=== PATIENT | female | born 1975 | race Caucasian/White ===

== ENCOUNTER 2017-06-13 23:11 | Inpatient (IN) | payer OTHER ==
[2017-06-14] MEDS: OXYCODONE/ACETAMINOPHEN (10/325) TAB PO (00:09)
[2017-06-14 00:30] LABS: ADD MAN DIFF? NO
[2017-06-14 00:33] LABS: BASOPHIL # 0.1 10^3/ul (0.0-0.1); BASOPHILS % 0.7 % (0.0-2.0); EOSINOPHILS # 0.3 10^3/ul (0.0-0.5); EOSINOPHILS % 2.9 % (0.0-7.0); HEMATOCRIT 30.8 % (37.0-47.0); HEMOGLOBIN 10.3 g/dl (12.0-16.0); LYMPHOCYTES % 9.6 % (15.0-51.0); MEAN CORPUSCULAR HGB CONC 33.4 g/dl (32.0-37.0); MEAN CORPUSCULAR VOLUME 113.7 fl (82.0-101.0); MEAN PLATELET VOLUME 9.9 fl (7.4-10.4); MONOCYTE # 0.4 10^3/ul (0.3-0.9); MONOCYTES % 4.1 % (0.0-11.0); NEUTROPHIL # 8.1 10^3/ul (1.6-7.5); NEUTROPHILS % 81.5 % (39.0-77.0); NUCLEATED RED BLOOD CELLS # 0.1 10^3/ul (0.0-0.0); NUCLEATED RED BLOOD CELLS% 0.6 /100WBC (0.0-0.0); PLATELET COUNT 253 10^3/UL (140-415); RED BLOOD COUNT 2.71 10^6/ul (4.20-5.40); RED CELL DISTRIBUTION WIDTH 16.5 % (11.5-14.5)
[2017-06-14 00:33] LABS: WHITE BLOOD COUNT 9.9 10^3/ul (4.8-10.8)
[2017-06-14 00:59] LABS: ANION GAP 25 (8-16); BLOOD UREA NITROGEN 60 mg/dl (7-20); CALCIUM 7.2 mg/dl (8.4-10.2); CARBON DIOXIDE 21 mmol/L (21-31); CHLORIDE 101 mmol/L (97-110); CREATINE KINASE 78 IU/L (23-200); GLUCOSE 210 mg/dl (70-220); SODIUM 142 mmol/L (135-144)
[2017-06-14 01:06] LABS: CREATININE 15.04 mg/dl (0.44-1.00)
[2017-06-14 02:34] LABS: LACTIC ACID 2.4 mmol/L (0.5-2.0)
[2017-06-14 02:42] LABS: ACETONE NEGATIVE (NEGATIVE)
[2017-06-14] MEDS: HYDROCORTISONE 100 MG INJ IV (04:06)
[2017-06-14] MEDS: SOD CHLORIDE 0.9% 250 ML IV (04:06)
[2017-06-14] MEDS ORDERED: ONDANSETRON 4 MG INJ IV (05:30)
[2017-06-14] MEDS ORDERED: ACETAMINOPHEN 325 MG TAB PO (05:30)
[2017-06-14] MEDS: DIPHENHYDRAMINE 25 MG CAP PO (08:20)
[2017-06-14] MEDS: HYDROmorphONE 1 MG/ML SYG IV ×4 (08:21→22:45)
[2017-06-14] MEDS ORDERED: GLUCAGON 1 MG INJ IM (09:00)
[2017-06-14] MEDS ORDERED: GLUCOSE GEL 15 GRAM TUBE PO ×2 (09:00)
[2017-06-14] MEDS ORDERED: DEXTROSE 50% 50 ML SYRINGE IV ×2 (09:00)
[2017-06-14] MEDS: INSULIN ASPART [NOVOLOG] 3 ML PEN SC ×7 (09:09→21:00)
[2017-06-14] MEDS: HYDROCORTISONE 5 MG TAB PO ×3 (09:30→21:44)
[2017-06-14 10:23] LABS: HEMOGLOBIN A1C 7.4 % (0-5.9)
[2017-06-14] MEDS: GABAPENTIN 300 MG CAP PO (10:42)
[2017-06-14] MEDS: DULOXETINE 30 MG CAP DR PO (10:42)
[2017-06-14] MEDS: LANTHANUM 500 MG CHEW PO ×2 (11:43→17:26)
[2017-06-14] MEDS: SEVELAMER CARBONATE 0.8 GM PKT PO ×2 (11:43→17:26)
[2017-06-14] MEDS ORDERED: SEVELAMER CARBONATE 0.8 GM PKT PO (12:00)
[2017-06-14] MEDS: INSULIN DETEMIR [LEVEMIR] 3ML CART SC (12:08)
[2017-06-14] MEDS ORDERED: VANCOMYCIN IV PER PHARMACY XX (12:30)
[2017-06-14] MEDS: DIPHENHYDRAMINE 50 MG INJ IV ×2 (14:11→21:44)
[2017-06-14] MEDS: DIAZEPAM 5 MG TAB PO (14:11)
[2017-06-14] MEDS: VANCOMYCIN 1 GM in NS 250 ML IVPB (14:11)
[2017-06-14] MEDS: EPOETIN 10000 UNITS/1 ML INJ (ESRD) SC (17:27)
[2017-06-14] MEDS ORDERED: INSULIN ASPART [NOVOLOG] 3 ML PEN SC (17:35)
[2017-06-14] MEDS: NPH, HUMAN INSULIN ISOPHANE 3ML VIAL SC (20:17)
[2017-06-15] MEDS: ACCU-CHEK XX (02:00)
[2017-06-15] MEDS: HYDROmorphONE 1 MG/ML SYG IV ×3 (02:50→20:44)
[2017-06-15] MEDS: DIPHENHYDRAMINE 50 MG INJ IV ×3 (04:17→18:26)
[2017-06-15 05:20] LABS: ADD MAN DIFF? NO
[2017-06-15 05:41] LABS: BASOPHIL # 0.1 10^3/ul (0.0-0.1); BASOPHILS % 0.7 % (0.0-2.0); EOSINOPHILS # 0.3 10^3/ul (0.0-0.5); EOSINOPHILS % 2.6 % (0.0-7.0); HEMATOCRIT 30.1 % (37.0-47.0); HEMOGLOBIN 9.4 g/dl (12.0-16.0); LYMPHOCYTES # 1.1 10^3/ul (0.8-2.9); MEAN CORPUSCULAR HEMOGLOBIN 35.5 pg (29.0-33.0); MEAN CORPUSCULAR HGB CONC 31.2 g/dl (32.0-37.0); MEAN CORPUSCULAR VOLUME 113.6 fl (82.0-101.0); MEAN PLATELET VOLUME 9.9 fl (7.4-10.4); MONOCYTE # 0.4 10^3/ul (0.3-0.9); MONOCYTES % 4.5 % (0.0-11.0); NEUTROPHIL # 7.8 10^3/ul (1.6-7.5); NEUTROPHILS % 80.2 % (39.0-77.0); NUCLEATED RED BLOOD CELLS # 0.1 10^3/ul (0.0-0.0); NUCLEATED RED BLOOD CELLS% 0.9 /100WBC (0.0-0.0); PLATELET COUNT 235 10^3/UL (140-415); RED BLOOD COUNT 2.65 10^6/ul (4.20-5.40)
[2017-06-15 05:41] LABS: WHITE BLOOD COUNT 9.7 10^3/ul (4.8-10.8)
[2017-06-15] MEDS: LEVOTHYROXINE 175 MCG TAB PO (06:00)
[2017-06-15 06:02] LABS: ANION GAP 26 (8-16); BLOOD UREA NITROGEN 64 mg/dl (7-20); CALCIUM 7.5 mg/dl (8.4-10.2); CARBON DIOXIDE 22 mmol/L (21-31); CHLORIDE 95 mmol/L (97-110); GLUCOSE 106 mg/dl (70-220); MAGNESIUM 2.3 mg/dl (1.7-2.5); PHOSPHORUS 8.5 mg/dl (2.5-4.9); POTASSIUM 5.6 mmol/L (3.5-5.1); SODIUM 137 mmol/L (135-144)
[2017-06-15 06:13] LABS: CREATININE 15.21 mg/dl (0.44-1.00)
[2017-06-15] MEDS ORDERED: INSULIN ASPART [NOVOLOG] 3 ML PEN SC (07:30)
[2017-06-15] MEDS: INSULIN DETEMIR [LEVEMIR] 3ML CART SC (07:56)
[2017-06-15] MEDS: INSULIN ASPART [NOVOLOG] 3 ML PEN SC ×7 (07:57→21:00)
[2017-06-15] MEDS: LANTHANUM 500 MG CHEW PO ×3 (07:58→17:28)
[2017-06-15] MEDS: SEVELAMER CARBONATE 0.8 GM PKT PO ×3 (07:58→17:27)
[2017-06-15] MEDS: DULOXETINE 30 MG CAP DR PO (08:00)
[2017-06-15] MEDS: HYDROCORTISONE 5 MG TAB PO ×2 (08:00→11:30)
[2017-06-15] MEDS: GABAPENTIN 300 MG CAP PO (08:00)
[2017-06-15] MEDS ORDERED: INSULIN DETEMIR [LEVEMIR] 3ML CART SC (08:00)
[2017-06-15] MEDS: DIAZEPAM 5 MG TAB PO ×2 (11:31→17:27)
[2017-06-15] MEDS: NPH, HUMAN INSULIN ISOPHANE 3ML VIAL SC (20:29)
[2017-06-16] MEDS: DIAZEPAM 5 MG TAB PO ×4 (00:12→18:13)
[2017-06-16] MEDS: DIPHENHYDRAMINE 50 MG INJ IV ×4 (00:59→20:21)
[2017-06-16] MEDS: ACCU-CHEK XX (02:00)
[2017-06-16] MEDS: HYDROmorphONE 1 MG/ML SYG IV ×5 (03:14→22:44)
[2017-06-16] MEDS: ONDANSETRON 4 MG INJ IV ×2 (05:28→18:13)
[2017-06-16] MEDS: LEVOTHYROXINE 175 MCG TAB PO (05:28)
[2017-06-16 05:40] LABS: ADD MAN DIFF? NO
[2017-06-16 05:44] LABS: WHITE BLOOD COUNT 8.2 10^3/ul (4.8-10.8)
[2017-06-16 05:44] LABS: BASOPHIL # 0.1 10^3/ul (0.0-0.1); EOSINOPHILS # 0.2 10^3/ul (0.0-0.5); EOSINOPHILS % 2.9 % (0.0-7.0); HEMATOCRIT 29.2 % (37.0-47.0); HEMOGLOBIN 9.2 g/dl (12.0-16.0); LYMPHOCYTES # 1.1 10^3/ul (0.8-2.9); MEAN CORPUSCULAR HEMOGLOBIN 35.9 pg (29.0-33.0); MEAN CORPUSCULAR HGB CONC 31.5 g/dl (32.0-37.0); MEAN CORPUSCULAR VOLUME 114.1 fl (82.0-101.0); MEAN PLATELET VOLUME 9.9 fl (7.4-10.4); MONOCYTE # 0.4 10^3/ul (0.3-0.9); NEUTROPHIL # 6.3 10^3/ul (1.6-7.5); NEUTROPHILS % 76.9 % (39.0-77.0); NUCLEATED RED BLOOD CELLS # 0.1 10^3/ul (0.0-0.0); NUCLEATED RED BLOOD CELLS% 0.7 /100WBC (0.0-0.0); PLATELET COUNT 224 10^3/UL (140-415); RED BLOOD COUNT 2.56 10^6/ul (4.20-5.40); RED CELL DISTRIBUTION WIDTH 16.2 % (11.5-14.5)
[2017-06-16 06:34] LABS: ANION GAP 23 (8-16); BLOOD UREA NITROGEN 64 mg/dl (7-20); CALCIUM 7.3 mg/dl (8.4-10.2); CARBON DIOXIDE 24 mmol/L (21-31); CHLORIDE 93 mmol/L (97-110); GLUCOSE 142 mg/dl (70-220); MAGNESIUM 2.2 mg/dl (1.7-2.5); PHOSPHORUS 8.3 mg/dl (2.5-4.9); POTASSIUM 5.3 mmol/L (3.5-5.1); SODIUM 135 mmol/L (135-144)
[2017-06-16 06:39] LABS: VANCOMYCIN,RANDOM 15.1 ug/ml
[2017-06-16 06:47] LABS: CREATININE 14.69 mg/dl (0.44-1.00)
[2017-06-16] MEDS: LANTHANUM 500 MG CHEW PO ×3 (07:55→17:08)
[2017-06-16] MEDS: SEVELAMER CARBONATE 0.8 GM PKT PO ×3 (07:55→17:08)
[2017-06-16] MEDS: INSULIN ASPART [NOVOLOG] 3 ML PEN SC ×7 (08:10→21:00)
[2017-06-16] MEDS: INSULIN DETEMIR [LEVEMIR] 3ML CART SC (08:11)
[2017-06-16] MEDS: DULOXETINE 30 MG CAP DR PO (08:39)
[2017-06-16] MEDS: GABAPENTIN 300 MG CAP PO (08:39)
[2017-06-16] MEDS: HYDROCORTISONE 5 MG TAB PO ×2 (08:40→11:13)
[2017-06-16] MEDS: VANCOMYCIN 750 MG in DEXTROSE 5% 150 ML IVPB (11:13)
[2017-06-16] MEDS: NPH, HUMAN INSULIN ISOPHANE 3ML VIAL SC (19:57)
[2017-06-17] MEDS: DIAZEPAM 5 MG TAB PO ×5 (00:10→23:02)
[2017-06-17] MEDS: ONDANSETRON 4 MG INJ IV ×2 (00:34→20:13)
[2017-06-17] MEDS: ACCU-CHEK XX (02:00)
[2017-06-17] MEDS: DIPHENHYDRAMINE 50 MG INJ IV ×4 (02:20→23:03)
[2017-06-17] MEDS: LEVOTHYROXINE 175 MCG TAB PO (05:45)
[2017-06-17 06:20] LABS: ADD MAN DIFF? NO
[2017-06-17 06:37] LABS: WHITE BLOOD COUNT 10.4 10^3/ul (4.8-10.8)
[2017-06-17 06:37] LABS: BASOPHIL # 0.1 10^3/ul (0.0-0.1); BASOPHILS % 0.8 % (0.0-2.0); EOSINOPHILS # 0.3 10^3/ul (0.0-0.5); EOSINOPHILS % 2.7 % (0.0-7.0); HEMATOCRIT 28.8 % (37.0-47.0); HEMOGLOBIN 8.9 g/dl (12.0-16.0); LYMPHOCYTES # 1.2 10^3/ul (0.8-2.9); LYMPHOCYTES % 11.8 % (15.0-51.0); MEAN CORPUSCULAR HEMOGLOBIN 35.9 pg (29.0-33.0); MEAN CORPUSCULAR HGB CONC 30.9 g/dl (32.0-37.0); MEAN CORPUSCULAR VOLUME 116.1 fl (82.0-101.0); MONOCYTE # 0.6 10^3/ul (0.3-0.9); MONOCYTES % 6.1 % (0.0-11.0); NEUTROPHILS % 77.3 % (39.0-77.0); NUCLEATED RED BLOOD CELLS # 0.1 10^3/ul (0.0-0.0); NUCLEATED RED BLOOD CELLS% 0.8 /100WBC (0.0-0.0); PLATELET COUNT 223 10^3/UL (140-415); RED BLOOD COUNT 2.48 10^6/ul (4.20-5.40); RED CELL DISTRIBUTION WIDTH 16.3 % (11.5-14.5)
[2017-06-17] MEDS: HYDROmorphONE 1 MG/ML SYG IV ×3 (06:42→20:13)
[2017-06-17 07:12] LABS: ANION GAP 23 (8-16); BLOOD UREA NITROGEN 70 mg/dl (7-20); CALCIUM 7.3 mg/dl (8.4-10.2); CARBON DIOXIDE 24 mmol/L (21-31); CHLORIDE 93 mmol/L (97-110); GLUCOSE 180 mg/dl (70-220); SODIUM 134 mmol/L (135-144)
[2017-06-17 07:21] LABS: CREATININE 14.73 mg/dl (0.44-1.00)
[2017-06-17 07:43] LABS: POTASSIUM 6.4 mmol/L (3.5-5.1)
[2017-06-17] MEDS: DULOXETINE 30 MG CAP DR PO (08:22)
[2017-06-17] MEDS: LANTHANUM 500 MG CHEW PO ×3 (08:23→18:20)
[2017-06-17] MEDS: SEVELAMER CARBONATE 0.8 GM PKT PO ×3 (08:23→18:20)
[2017-06-17] MEDS: GABAPENTIN 300 MG CAP PO (08:23)
[2017-06-17] MEDS: INSULIN ASPART [NOVOLOG] 3 ML PEN SC ×7 (08:24→21:00)
[2017-06-17] MEDS: INSULIN DETEMIR [LEVEMIR] 3ML CART SC (08:26)
[2017-06-17] MEDS: NA POLYST SULFON 15 GM/60 ML BTL PO (09:52)
[2017-06-17] MEDS: HYDROCORTISONE 5 MG TAB PO ×2 (09:53→12:46)
[2017-06-17 15:11] LABS: ANION GAP 24 (8-16); BLOOD UREA NITROGEN 68 mg/dl (7-20); CALCIUM 7.8 mg/dl (8.4-10.2); CARBON DIOXIDE 23 mmol/L (21-31); CHLORIDE 94 mmol/L (97-110); GLUCOSE 126 mg/dl (70-220); SODIUM 137 mmol/L (135-144)
[2017-06-17 15:17] LABS: CREATININE 13.91 mg/dl (0.44-1.00)
[2017-06-17] MEDS: EPOETIN 10000 UNITS/1 ML INJ (ESRD) SC (17:01)
[2017-06-17] MEDS: NPH, HUMAN INSULIN ISOPHANE 3ML VIAL SC (20:12)
[2017-06-18] MEDS: HYDROmorphONE 1 MG/ML SYG IV ×3 (01:27→10:46)
[2017-06-18] MEDS: ACCU-CHEK XX (01:31)
[2017-06-18] MEDS: ONDANSETRON 4 MG INJ IV ×3 (04:46→20:15)
[2017-06-18] MEDS: DIPHENHYDRAMINE 50 MG INJ IV ×3 (05:03→20:15)
[2017-06-18] MEDS: LEVOTHYROXINE 175 MCG TAB PO (05:03)
[2017-06-18] MEDS: DIAZEPAM 5 MG TAB PO ×3 (05:03→17:32)
[2017-06-18 05:40] LABS: ADD MAN DIFF? NO
[2017-06-18 05:46] LABS: WHITE BLOOD COUNT 12.6 10^3/ul (4.8-10.8)
[2017-06-18 05:46] LABS: BASOPHIL # 0.1 10^3/ul (0.0-0.1); BASOPHILS % 0.5 % (0.0-2.0); EOSINOPHILS # 0.2 10^3/ul (0.0-0.5); EOSINOPHILS % 1.5 % (0.0-7.0); HEMATOCRIT 30.4 % (37.0-47.0); HEMOGLOBIN 9.5 g/dl (12.0-16.0); LYMPHOCYTES # 0.9 10^3/ul (0.8-2.9); LYMPHOCYTES % 6.8 % (15.0-51.0); MEAN CORPUSCULAR HEMOGLOBIN 36.3 pg (29.0-33.0); MEAN CORPUSCULAR HGB CONC 31.3 g/dl (32.0-37.0); MONOCYTE # 0.6 10^3/ul (0.3-0.9); MONOCYTES % 4.4 % (0.0-11.0); NEUTROPHIL # 10.8 10^3/ul (1.6-7.5); NEUTROPHILS % 85.5 % (39.0-77.0); NUCLEATED RED BLOOD CELLS # 0.1 10^3/ul (0.0-0.0); NUCLEATED RED BLOOD CELLS% 0.9 /100WBC (0.0-0.0); PLATELET COUNT 220 10^3/UL (140-415); RED BLOOD COUNT 2.62 10^6/ul (4.20-5.40); RED CELL DISTRIBUTION WIDTH 16.7 % (11.5-14.5)
[2017-06-18 06:00] LABS: ANION GAP 25 (8-16); BLOOD UREA NITROGEN 72 mg/dl (7-20); CALCIUM 7.5 mg/dl (8.4-10.2); CARBON DIOXIDE 25 mmol/L (21-31); CHLORIDE 94 mmol/L (97-110); GLUCOSE 200 mg/dl (70-220); MAGNESIUM 2.3 mg/dl (1.7-2.5); PHOSPHORUS 8.1 mg/dl (2.5-4.9); POTASSIUM 5.8 mmol/L (3.5-5.1); SODIUM 138 mmol/L (135-144)
[2017-06-18 06:12] LABS: CREATININE 14.52 mg/dl (0.44-1.00)
[2017-06-18] MEDS: SEVELAMER CARBONATE 0.8 GM PKT PO ×3 (07:53→17:32)
[2017-06-18] MEDS: LANTHANUM 500 MG CHEW PO ×3 (07:53→17:32)
[2017-06-18] MEDS: INSULIN ASPART [NOVOLOG] 3 ML PEN SC ×7 (07:55→20:33)
[2017-06-18] MEDS: INSULIN DETEMIR [LEVEMIR] 3ML CART SC (07:57)
[2017-06-18] MEDS: GABAPENTIN 300 MG CAP PO (09:10)
[2017-06-18] MEDS: HYDROCORTISONE 5 MG TAB PO ×2 (09:10→11:20)
[2017-06-18] MEDS: DULOXETINE 30 MG CAP DR PO (09:10)
[2017-06-18] MEDS ORDERED: NPH, HUMAN INSULIN ISOPHANE 3ML VIAL SC (17:30)
[2017-06-18] MEDS: NPH, HUMAN INSULIN ISOPHANE 3ML VIAL SC (20:12)
[2017-06-19] MEDS: DIAZEPAM 5 MG TAB PO ×5 (00:02→23:49)
[2017-06-19] MEDS: HYDROmorphONE 1 MG/ML SYG IV ×4 (00:42→20:30)
[2017-06-19] MEDS: ACCU-CHEK XX (02:00)
[2017-06-19] MEDS: ONDANSETRON 4 MG INJ IV ×3 (02:50→16:07)
[2017-06-19] MEDS: DIPHENHYDRAMINE 50 MG INJ IV ×4 (02:50→20:23)
[2017-06-19] MEDS: LEVOTHYROXINE 175 MCG TAB PO (05:35)
[2017-06-19 05:46] LABS: ADD MAN DIFF? NO
[2017-06-19 05:52] LABS: BASOPHIL # 0.1 10^3/ul (0.0-0.1); BASOPHILS % 0.7 % (0.0-2.0); EOSINOPHILS # 0.3 10^3/ul (0.0-0.5); EOSINOPHILS % 2.8 % (0.0-7.0); HEMATOCRIT 27.4 % (37.0-47.0); HEMOGLOBIN 8.8 g/dl (12.0-16.0); LYMPHOCYTES # 1.1 10^3/ul (0.8-2.9); LYMPHOCYTES % 10.9 % (15.0-51.0); MEAN CORPUSCULAR HGB CONC 32.1 g/dl (32.0-37.0); MEAN CORPUSCULAR VOLUME 115.1 fl (82.0-101.0); MEAN PLATELET VOLUME 9.9 fl (7.4-10.4); MONOCYTE # 0.6 10^3/ul (0.3-0.9); MONOCYTES % 6.1 % (0.0-11.0); NEUTROPHIL # 7.9 10^3/ul (1.6-7.5); NEUTROPHILS % 78.3 % (39.0-77.0); NUCLEATED RED BLOOD CELLS # 0.1 10^3/ul (0.0-0.0); NUCLEATED RED BLOOD CELLS% 1.2 /100WBC (0.0-0.0); PLATELET COUNT 187 10^3/UL (140-415); RED BLOOD COUNT 2.38 10^6/ul (4.20-5.40); RED CELL DISTRIBUTION WIDTH 16.6 % (11.5-14.5)
[2017-06-19 05:52] LABS: WHITE BLOOD COUNT 10.1 10^3/ul (4.8-10.8)
[2017-06-19 06:49] LABS: VANCOMYCIN,RANDOM 20.6 ug/ml
[2017-06-19] MEDS: INSULIN ASPART [NOVOLOG] 3 ML PEN SC ×7 (08:00→21:00)
[2017-06-19 08:48] LABS: ANION GAP 22 (8-16); BLOOD UREA NITROGEN 72 mg/dl (7-20); CALCIUM 7.7 mg/dl (8.4-10.2); CARBON DIOXIDE 25 mmol/L (21-31); CHLORIDE 94 mmol/L (97-110); MAGNESIUM 2.3 mg/dl (1.7-2.5); PHOSPHORUS 7.5 mg/dl (2.5-4.9); POTASSIUM 4.7 mmol/L (3.5-5.1); SODIUM 136 mmol/L (135-144)
[2017-06-19 08:54] LABS: CREATININE 15.03 mg/dl (0.44-1.00)
[2017-06-19 08:55] LABS: GLUCOSE 84 mg/dl (70-220)
[2017-06-19] MEDS: SEVELAMER CARBONATE 0.8 GM PKT PO ×3 (09:18→19:23)
[2017-06-19] MEDS: DULOXETINE 30 MG CAP DR PO (09:18)
[2017-06-19] MEDS: LANTHANUM 500 MG CHEW PO ×3 (09:18→19:22)
[2017-06-19] MEDS: GABAPENTIN 300 MG CAP PO (09:19)
[2017-06-19] MEDS: HYDROCORTISONE 5 MG TAB PO ×2 (09:19→14:02)
[2017-06-19] MEDS: INSULIN DETEMIR [LEVEMIR] 3ML CART SC (09:20)
[2017-06-19] MEDS: ACETAMINOPHEN 325 MG TAB PO (16:08)
[2017-06-19] MEDS: EPOETIN 10000 UNITS/1 ML INJ (ESRD) SC (19:29)
[2017-06-19] MEDS: NPH, HUMAN INSULIN ISOPHANE 3ML VIAL SC (20:23)
[2017-06-20] MEDS: HYDROmorphONE 1 MG/ML SYG IV ×6 (00:35→21:11)
[2017-06-20] MEDS: ACCU-CHEK XX (02:00)
[2017-06-20] MEDS: DIPHENHYDRAMINE 50 MG INJ IV ×5 (02:36→18:51)
[2017-06-20] MEDS: LEVOTHYROXINE 175 MCG TAB PO (06:14)
[2017-06-20] MEDS: DIAZEPAM 5 MG TAB PO ×3 (06:14→17:00)
[2017-06-20 06:42] LABS: ADD MAN DIFF? NO
[2017-06-20 06:51] LABS: BASOPHILS % 0.3 % (0.0-2.0); EOSINOPHILS # 0.2 10^3/ul (0.0-0.5); HEMATOCRIT 28.5 % (37.0-47.0); HEMOGLOBIN 8.8 g/dl (12.0-16.0); LYMPHOCYTES # 0.8 10^3/ul (0.8-2.9); LYMPHOCYTES % 6.8 % (15.0-51.0); MEAN CORPUSCULAR HEMOGLOBIN 35.9 pg (29.0-33.0); MEAN CORPUSCULAR HGB CONC 30.9 g/dl (32.0-37.0); MEAN CORPUSCULAR VOLUME 116.3 fl (82.0-101.0); MEAN PLATELET VOLUME 10.1 fl (7.4-10.4); MONOCYTE # 0.4 10^3/ul (0.3-0.9); MONOCYTES % 3.5 % (0.0-11.0); NEUTROPHIL # 9.7 10^3/ul (1.6-7.5); NEUTROPHILS % 86.5 % (39.0-77.0); NUCLEATED RED BLOOD CELLS # 0.1 10^3/ul (0.0-0.0); NUCLEATED RED BLOOD CELLS% 0.4 /100WBC (0.0-0.0); PLATELET COUNT 202 10^3/UL (140-415); RED BLOOD COUNT 2.45 10^6/ul (4.20-5.40); RED CELL DISTRIBUTION WIDTH 16.9 % (11.5-14.5)
[2017-06-20 06:51] LABS: WHITE BLOOD COUNT 11.2 10^3/ul (4.8-10.8)
[2017-06-20 07:14] LABS: ANION GAP 22 (8-16); BLOOD UREA NITROGEN 73 mg/dl (7-20); CALCIUM 7.7 mg/dl (8.4-10.2); CARBON DIOXIDE 25 mmol/L (21-31); CHLORIDE 95 mmol/L (97-110); GLUCOSE 129 mg/dl (70-220); POTASSIUM 5.7 mmol/L (3.5-5.1); SODIUM 136 mmol/L (135-144)
[2017-06-20 07:22] LABS: CREATININE 15.37 mg/dl (0.44-1.00)
[2017-06-20] MEDS: GABAPENTIN 300 MG CAP PO (08:07)
[2017-06-20] MEDS: DULOXETINE 30 MG CAP DR PO (08:07)
[2017-06-20] MEDS: SEVELAMER CARBONATE 0.8 GM PKT PO ×3 (08:07→16:36)
[2017-06-20] MEDS: LANTHANUM 500 MG CHEW PO ×3 (08:07→16:36)
[2017-06-20] MEDS: HYDROCORTISONE 5 MG TAB PO ×2 (08:07→11:41)
[2017-06-20] MEDS: INSULIN DETEMIR [LEVEMIR] 3ML CART SC (08:09)
[2017-06-20] MEDS: INSULIN ASPART [NOVOLOG] 3 ML PEN SC ×7 (08:10→20:46)
[2017-06-20] MEDS: ONDANSETRON 4 MG INJ IV (12:28)
[2017-06-20] MEDS: NPH, HUMAN INSULIN ISOPHANE 3ML VIAL SC (20:00)
[2017-06-21] MEDS: DIAZEPAM 5 MG TAB PO ×4 (00:31→17:37)
[2017-06-21] MEDS: ACCU-CHEK XX (01:00)
[2017-06-21] MEDS: DIPHENHYDRAMINE 50 MG INJ IV ×4 (01:04→21:15)
[2017-06-21] MEDS: LEVOTHYROXINE 175 MCG TAB PO (05:15)
[2017-06-21 05:57] LABS: ADD MAN DIFF? NO
[2017-06-21 06:05] LABS: BASOPHIL # 0.1 10^3/ul (0.0-0.1); BASOPHILS % 0.6 % (0.0-2.0); EOSINOPHILS # 0.2 10^3/ul (0.0-0.5); EOSINOPHILS % 2.7 % (0.0-7.0); HEMATOCRIT 27.1 % (37.0-47.0); HEMOGLOBIN 8.4 g/dl (12.0-16.0); LYMPHOCYTES # 1.1 10^3/ul (0.8-2.9); LYMPHOCYTES % 12.2 % (15.0-51.0); MEAN CORPUSCULAR HEMOGLOBIN 36.2 pg (29.0-33.0); MEAN CORPUSCULAR VOLUME 116.8 fl (82.0-101.0); MEAN PLATELET VOLUME 10.3 fl (7.4-10.4); MONOCYTE # 0.5 10^3/ul (0.3-0.9); NEUTROPHILS % 78.4 % (39.0-77.0); NUCLEATED RED BLOOD CELLS # 0.1 10^3/ul (0.0-0.0); NUCLEATED RED BLOOD CELLS% 0.7 /100WBC (0.0-0.0); PLATELET COUNT 207 10^3/UL (140-415); RED BLOOD COUNT 2.32 10^6/ul (4.20-5.40)
[2017-06-21 06:43] LABS: ANION GAP 22 (8-16); BLOOD UREA NITROGEN 75 mg/dl (7-20); CALCIUM 7.9 mg/dl (8.4-10.2); CARBON DIOXIDE 25 mmol/L (21-31); CHLORIDE 92 mmol/L (97-110); GLUCOSE 178 mg/dl (70-220); MAGNESIUM 2.3 mg/dl (1.7-2.5); PHOSPHORUS 6.2 mg/dl (2.5-4.9); SODIUM 132 mmol/L (135-144)
[2017-06-21 06:47] LABS: POTASSIUM 6.5 mmol/L (3.5-5.1)
[2017-06-21 07:13] LABS: CREATININE 15.64 mg/dl (0.44-1.00)
[2017-06-21] MEDS: LANTHANUM 500 MG CHEW PO ×3 (07:35→18:05)
[2017-06-21] MEDS: INSULIN DETEMIR [LEVEMIR] 3ML CART SC (07:50)
[2017-06-21] MEDS: INSULIN ASPART [NOVOLOG] 3 ML PEN SC ×7 (07:51→21:00)
[2017-06-21] MEDS: SEVELAMER CARBONATE 0.8 GM PKT PO ×3 (07:52→17:46)
[2017-06-21] MEDS: HYDROmorphONE 1 MG/ML SYG IV ×3 (07:55→21:15)
[2017-06-21] MEDS: NA POLYST SULFON 15 GM/60 ML BTL PR (08:00)
[2017-06-21] MEDS: HYDROCORTISONE 5 MG TAB PO ×2 (08:02→11:07)
[2017-06-21] MEDS: GABAPENTIN 300 MG CAP PO (08:02)
[2017-06-21] MEDS: DULOXETINE 30 MG CAP DR PO (08:14)
[2017-06-21] MEDS: ONDANSETRON 4 MG INJ IV (08:14)
[2017-06-21] MEDS: HYDROCODONE/APAP (5/325) TAB PO (11:07)
[2017-06-21] MEDS: NPH, HUMAN INSULIN ISOPHANE 3ML VIAL SC ×2 (12:20→21:31)
[2017-06-21 14:31] LABS: ANION GAP 21 (8-16); BLOOD UREA NITROGEN 72 mg/dl (7-20); CARBON DIOXIDE 26 mmol/L (21-31); CHLORIDE 91 mmol/L (97-110); GLUCOSE 194 mg/dl (70-220); POTASSIUM 5.4 mmol/L (3.5-5.1); SODIUM 133 mmol/L (135-144)
[2017-06-21 14:40] LABS: CREATININE 15.33 mg/dl (0.44-1.00)
[2017-06-21] MEDS: EPOETIN 10000 UNITS/1 ML INJ (ESRD) SC (17:39)
[2017-06-22] MEDS: DIAZEPAM 5 MG TAB PO ×4 (01:01→17:40)
[2017-06-22] MEDS: ACCU-CHEK XX (02:07)
[2017-06-22] MEDS: DIPHENHYDRAMINE 50 MG INJ IV ×4 (02:10→20:35)
[2017-06-22 06:36] LABS: ADD MAN DIFF? NO
[2017-06-22 06:39] LABS: BASOPHIL # 0.1 10^3/ul (0.0-0.1); BASOPHILS % 0.7 % (0.0-2.0); EOSINOPHILS # 0.2 10^3/ul (0.0-0.5); EOSINOPHILS % 2.2 % (0.0-7.0); HEMATOCRIT 26.8 % (37.0-47.0); HEMOGLOBIN 8.5 g/dl (12.0-16.0); LYMPHOCYTES # 1.1 10^3/ul (0.8-2.9); LYMPHOCYTES % 11.7 % (15.0-51.0); MEAN CORPUSCULAR HEMOGLOBIN 36.3 pg (29.0-33.0); MEAN CORPUSCULAR HGB CONC 31.7 g/dl (32.0-37.0); MEAN CORPUSCULAR VOLUME 114.5 fl (82.0-101.0); MONOCYTE # 0.5 10^3/ul (0.3-0.9); NEUTROPHIL # 7.3 10^3/ul (1.6-7.5); NUCLEATED RED BLOOD CELLS # 0.1 10^3/ul (0.0-0.0); NUCLEATED RED BLOOD CELLS% 0.5 /100WBC (0.0-0.0); PLATELET COUNT 218 10^3/UL (140-415); RED BLOOD COUNT 2.34 10^6/ul (4.20-5.40); RED CELL DISTRIBUTION WIDTH 17.1 % (11.5-14.5)
[2017-06-22 06:39] LABS: WHITE BLOOD COUNT 9.2 10^3/ul (4.8-10.8)
[2017-06-22 07:09] LABS: ANION GAP 21 (8-16); BLOOD UREA NITROGEN 74 mg/dl (7-20); CARBON DIOXIDE 27 mmol/L (21-31); CHLORIDE 92 mmol/L (97-110); GLUCOSE 196 mg/dl (70-220); MAGNESIUM 2.3 mg/dl (1.7-2.5); PHOSPHORUS 6.8 mg/dl (2.5-4.9); POTASSIUM 5.3 mmol/L (3.5-5.1); SODIUM 135 mmol/L (135-144)
[2017-06-22 07:19] LABS: CREATININE 15.96 mg/dl (0.44-1.00)
[2017-06-22] MEDS: LEVOTHYROXINE 175 MCG TAB PO (08:16)
[2017-06-22] MEDS: GABAPENTIN 300 MG CAP PO (08:16)
[2017-06-22] MEDS: HYDROCORTISONE 5 MG TAB PO ×2 (08:16→11:34)
[2017-06-22] MEDS: SEVELAMER CARBONATE 0.8 GM PKT PO ×3 (08:16→17:31)
[2017-06-22] MEDS: DULOXETINE 30 MG CAP DR PO (08:17)
[2017-06-22] MEDS: LANTHANUM 500 MG CHEW PO ×3 (08:27→17:32)
[2017-06-22] MEDS: INSULIN ASPART [NOVOLOG] 3 ML PEN SC ×7 (08:31→20:35)
[2017-06-22] MEDS: INSULIN DETEMIR [LEVEMIR] 3ML CART SC (08:33)
[2017-06-22] MEDS ORDERED: NA POLYST SULFON 15 GM/60 ML BTL PO (10:30)
[2017-06-22] MEDS: NPH, HUMAN INSULIN ISOPHANE 3ML VIAL SC ×2 (11:40→20:34)
[2017-06-22] MEDS: HYDROCODONE/APAP (5/325) TAB PO ×2 (14:44→22:13)
[2017-06-22] MEDS: HYDROmorphONE 1 MG/ML SYG IV ×2 (15:48→20:35)
[2017-06-23] MEDS: DIPHENHYDRAMINE 50 MG INJ IV ×5 (00:40→20:11)
[2017-06-23] MEDS: DIAZEPAM 5 MG TAB PO ×4 (00:40→18:17)
[2017-06-23] MEDS: HYDROmorphONE 1 MG/ML SYG IV ×5 (00:40→20:11)
[2017-06-23] MEDS: ACCU-CHEK XX (02:25)
[2017-06-23] MEDS: LEVOTHYROXINE 175 MCG TAB PO (06:02)
[2017-06-23 06:55] LABS: ADD MAN DIFF? NO
[2017-06-23 06:58] LABS: WHITE BLOOD COUNT 9.6 10^3/ul (4.8-10.8)
[2017-06-23 06:58] LABS: BASOPHIL # 0.1 10^3/ul (0.0-0.1); BASOPHILS % 0.5 % (0.0-2.0); EOSINOPHILS # 0.3 10^3/ul (0.0-0.5); EOSINOPHILS % 2.8 % (0.0-7.0); HEMATOCRIT 28.3 % (37.0-47.0); HEMOGLOBIN 8.9 g/dl (12.0-16.0); LYMPHOCYTES # 1.2 10^3/ul (0.8-2.9); LYMPHOCYTES % 12.2 % (15.0-51.0); MEAN CORPUSCULAR HEMOGLOBIN 36.5 pg (29.0-33.0); MEAN CORPUSCULAR HGB CONC 31.4 g/dl (32.0-37.0); MEAN PLATELET VOLUME 9.8 fl (7.4-10.4); MONOCYTE # 0.5 10^3/ul (0.3-0.9); MONOCYTES % 5.2 % (0.0-11.0); NEUTROPHIL # 7.5 10^3/ul (1.6-7.5); NEUTROPHILS % 78.2 % (39.0-77.0); NUCLEATED RED BLOOD CELLS # 0.1 10^3/ul (0.0-0.0); NUCLEATED RED BLOOD CELLS% 0.5 /100WBC (0.0-0.0); PLATELET COUNT 229 10^3/UL (140-415); RED BLOOD COUNT 2.44 10^6/ul (4.20-5.40); RED CELL DISTRIBUTION WIDTH 16.9 % (11.5-14.5)
[2017-06-23 07:23] LABS: ANION GAP 22 (8-16); BLOOD UREA NITROGEN 74 mg/dl (7-20); CALCIUM 8.2 mg/dl (8.4-10.2); CARBON DIOXIDE 26 mmol/L (21-31); CHLORIDE 95 mmol/L (97-110); GLUCOSE 65 mg/dl (70-220); POTASSIUM 4.9 mmol/L (3.5-5.1); SODIUM 138 mmol/L (135-144)
[2017-06-23 07:36] LABS: CREATININE 16.03 mg/dl (0.44-1.00)
[2017-06-23] MEDS: LANTHANUM 500 MG CHEW PO ×3 (07:52→18:18)
[2017-06-23] MEDS: SEVELAMER CARBONATE 0.8 GM PKT PO ×3 (07:52→18:18)
[2017-06-23] MEDS: INSULIN ASPART [NOVOLOG] 3 ML PEN SC ×7 (08:00→20:54)
[2017-06-23] MEDS: INSULIN DETEMIR [LEVEMIR] 3ML CART SC (08:16)
[2017-06-23] MEDS: GABAPENTIN 300 MG CAP PO (08:29)
[2017-06-23] MEDS: DULOXETINE 30 MG CAP DR PO (08:29)
[2017-06-23] MEDS: HYDROCORTISONE 5 MG TAB PO ×2 (08:29→12:08)
[2017-06-23] MEDS: ONDANSETRON 4 MG INJ IV (12:13)
[2017-06-23] MEDS: NPH, HUMAN INSULIN ISOPHANE 3ML VIAL SC (20:54)
[2017-06-24] MEDS: ACCU-CHEK XX ×2 (02:00)
[2017-06-24] MEDS: DIPHENHYDRAMINE 50 MG INJ IV ×5 (03:01→21:39)
[2017-06-24] MEDS: HYDROmorphONE 1 MG/ML SYG IV ×4 (03:02→18:42)
[2017-06-24] MEDS: ONDANSETRON 4 MG INJ IV ×2 (05:02→11:21)
[2017-06-24] MEDS: LEVOTHYROXINE 175 MCG TAB PO (05:02)
[2017-06-24] MEDS: DIAZEPAM 5 MG TAB PO ×4 (05:02→17:40)
[2017-06-24 06:38] LABS: ADD MAN DIFF? NO
[2017-06-24 06:41] LABS: WHITE BLOOD COUNT 8.2 10^3/ul (4.8-10.8)
[2017-06-24 06:41] LABS: BASOPHIL # 0.1 10^3/ul (0.0-0.1); BASOPHILS % 0.6 % (0.0-2.0); EOSINOPHILS # 0.2 10^3/ul (0.0-0.5); EOSINOPHILS % 2.1 % (0.0-7.0); HEMATOCRIT 29.4 % (37.0-47.0); HEMOGLOBIN 9.3 g/dl (12.0-16.0); LYMPHOCYTES % 11.8 % (15.0-51.0); MEAN CORPUSCULAR HEMOGLOBIN 36.5 pg (29.0-33.0); MEAN CORPUSCULAR HGB CONC 31.6 g/dl (32.0-37.0); MEAN CORPUSCULAR VOLUME 115.3 fl (82.0-101.0); MEAN PLATELET VOLUME 9.8 fl (7.4-10.4); MONOCYTE # 0.5 10^3/ul (0.3-0.9); MONOCYTES % 5.8 % (0.0-11.0); NEUTROPHIL # 6.4 10^3/ul (1.6-7.5); NEUTROPHILS % 78.1 % (39.0-77.0); NUCLEATED RED BLOOD CELLS% 0.2 /100WBC (0.0-0.0); PLATELET COUNT 258 10^3/UL (140-415); RED BLOOD COUNT 2.55 10^6/ul (4.20-5.40); RED CELL DISTRIBUTION WIDTH 16.7 % (11.5-14.5)
[2017-06-24 07:16] LABS: ANION GAP 25 (8-16); BLOOD UREA NITROGEN 66 mg/dl (7-20); CALCIUM 8.7 mg/dl (8.4-10.2); CARBON DIOXIDE 25 mmol/L (21-31); CHLORIDE 93 mmol/L (97-110); GLUCOSE 291 mg/dl (70-220); SODIUM 138 mmol/L (135-144)
[2017-06-24] MEDS: INSULIN ASPART [NOVOLOG] 3 ML PEN SC ×7 (08:00→20:17)
[2017-06-24] MEDS: GABAPENTIN 300 MG CAP PO (08:50)
[2017-06-24] MEDS: LANTHANUM 500 MG CHEW PO ×3 (08:50→17:40)
[2017-06-24] MEDS: SEVELAMER CARBONATE 0.8 GM PKT PO ×3 (08:50→17:41)
[2017-06-24] MEDS: HYDROCORTISONE 5 MG TAB PO ×2 (08:50→11:19)
[2017-06-24] MEDS: DULOXETINE 30 MG CAP DR PO (08:50)
[2017-06-24] MEDS: INSULIN DETEMIR [LEVEMIR] 3ML CART SC (09:07)
[2017-06-24] MEDS ORDERED: SOD CHLORIDE 0.9% 250 ML IV (10:00)
[2017-06-24] MEDS: EPOETIN 10000 UNITS/1 ML INJ (ESRD) SC (17:40)
[2017-06-24] MEDS: NPH, HUMAN INSULIN ISOPHANE 3ML VIAL SC (20:22)
[2017-06-25] MEDS: DIAZEPAM 5 MG TAB PO ×4 (00:35→17:41)
[2017-06-25] MEDS: HYDROmorphONE 1 MG/ML SYG IV ×2 (00:36→05:45)
[2017-06-25] MEDS: DIPHENHYDRAMINE 50 MG INJ IV ×5 (01:49→23:52)
[2017-06-25] MEDS: ACCU-CHEK XX (02:00)
[2017-06-25] MEDS: ONDANSETRON 4 MG INJ IV ×3 (04:40→23:46)
[2017-06-25] MEDS: LEVOTHYROXINE 175 MCG TAB PO (05:41)
[2017-06-25] MEDS: GABAPENTIN 300 MG CAP PO (08:00)
[2017-06-25] MEDS: DULOXETINE 30 MG CAP DR PO (08:00)
[2017-06-25] MEDS: LANTHANUM 500 MG CHEW PO ×3 (08:01→17:34)
[2017-06-25] MEDS: SEVELAMER CARBONATE 0.8 GM PKT PO ×3 (08:01→17:35)
[2017-06-25] MEDS: HYDROCODONE/APAP (5/325) TAB PO (08:02)
[2017-06-25] MEDS: INSULIN ASPART [NOVOLOG] 3 ML PEN SC ×7 (08:10→21:00)
[2017-06-25] MEDS: INSULIN DETEMIR [LEVEMIR] 3ML CART SC (08:11)
[2017-06-25 08:22] LABS: ADD MAN DIFF? NO
[2017-06-25 08:31] LABS: BASOPHIL # 0.1 10^3/ul (0.0-0.1); BASOPHILS % 0.8 % (0.0-2.0); EOSINOPHILS # 0.3 10^3/ul (0.0-0.5); HEMATOCRIT 28.3 % (37.0-47.0); HEMOGLOBIN 8.8 g/dl (12.0-16.0); LYMPHOCYTES % 11.9 % (15.0-51.0); MEAN CORPUSCULAR HEMOGLOBIN 35.9 pg (29.0-33.0); MEAN CORPUSCULAR HGB CONC 31.1 g/dl (32.0-37.0); MEAN CORPUSCULAR VOLUME 115.5 fl (82.0-101.0); MEAN PLATELET VOLUME 9.7 fl (7.4-10.4); MONOCYTE # 0.4 10^3/ul (0.3-0.9); MONOCYTES % 4.8 % (0.0-11.0); NEUTROPHIL # 6.7 10^3/ul (1.6-7.5); NEUTROPHILS % 77.8 % (39.0-77.0); NUCLEATED RED BLOOD CELLS% 0.2 /100WBC (0.0-0.0); PLATELET COUNT 234 10^3/UL (140-415); RED BLOOD COUNT 2.45 10^6/ul (4.20-5.40); RED CELL DISTRIBUTION WIDTH 16.4 % (11.5-14.5)
[2017-06-25 08:31] LABS: WHITE BLOOD COUNT 8.6 10^3/ul (4.8-10.8)
[2017-06-25 08:45] LABS: ANION GAP 21 (8-16); BLOOD UREA NITROGEN 65 mg/dl (7-20); CALCIUM 8.5 mg/dl (8.4-10.2); CARBON DIOXIDE 26 mmol/L (21-31); CHLORIDE 94 mmol/L (97-110); GLUCOSE 358 mg/dl (70-220); POTASSIUM 5.5 mmol/L (3.5-5.1); SODIUM 135 mmol/L (135-144)
[2017-06-25] MEDS: HYDROCORTISONE 5 MG TAB PO ×2 (09:45→11:48)
[2017-06-25] MEDS: CALCIUM ACETATE 667 MG CAP PO ×2 (11:47→17:34)
[2017-06-25] MEDS: HYDROmorphONE 0.5 MG/0.5 ML SYG IV ×2 (17:34→23:53)
[2017-06-25] MEDS: NPH, HUMAN INSULIN ISOPHANE 3ML VIAL SC ×3 (20:07→20:15)
[2017-06-26] MEDS: DIAZEPAM 5 MG TAB PO ×4 (00:32→17:11)
[2017-06-26] MEDS: ACCU-CHEK XX (02:00)
[2017-06-26] MEDS: LEVOTHYROXINE 175 MCG TAB PO (06:12)
[2017-06-26] MEDS: DIPHENHYDRAMINE 50 MG INJ IV ×5 (06:24→21:35)
[2017-06-26] MEDS: HYDROmorphONE 0.5 MG/0.5 ML SYG IV ×5 (06:24→21:35)
[2017-06-26 07:55] LABS: ANION GAP 20 (8-16); BLOOD UREA NITROGEN 64 mg/dl (7-20); CARBON DIOXIDE 29 mmol/L (21-31); CHLORIDE 94 mmol/L (97-110); GLUCOSE 273 mg/dl (70-220); MAGNESIUM 2.4 mg/dl (1.7-2.5); PHOSPHORUS 6.7 mg/dl (2.5-4.9); POTASSIUM 5.1 mmol/L (3.5-5.1); SODIUM 138 mmol/L (135-144)
[2017-06-26] MEDS: HYDROCORTISONE 5 MG TAB PO ×2 (08:12→11:41)
[2017-06-26] MEDS: SEVELAMER CARBONATE 0.8 GM PKT PO ×3 (08:14→17:10)
[2017-06-26] MEDS: CALCIUM ACETATE 667 MG CAP PO ×3 (08:14→17:11)
[2017-06-26] MEDS: LANTHANUM 500 MG CHEW PO ×3 (08:14→17:11)
[2017-06-26] MEDS: DULOXETINE 30 MG CAP DR PO (08:14)
[2017-06-26] MEDS: GABAPENTIN 300 MG CAP PO (08:14)
[2017-06-26 08:16] LABS: CREATININE 15.79 mg/dl (0.44-1.00)
[2017-06-26] MEDS: INSULIN ASPART [NOVOLOG] 3 ML PEN SC ×7 (08:16→20:44)
[2017-06-26] MEDS: INSULIN DETEMIR [LEVEMIR] 3ML CART SC (09:35)
[2017-06-26] MEDS: ONDANSETRON 4 MG INJ IV (11:06)
[2017-06-26] MEDS: EPOETIN 10000 UNITS/1 ML INJ (ESRD) SC (18:47)
[2017-06-26] MEDS: NPH, HUMAN INSULIN ISOPHANE 3ML VIAL SC (20:49)
[2017-06-27] MEDS: DIAZEPAM 5 MG TAB PO ×4 (00:32→17:26)
[2017-06-27] MEDS: HYDROmorphONE 0.5 MG/0.5 ML SYG IV ×5 (01:45→18:35)
[2017-06-27] MEDS: DIPHENHYDRAMINE 50 MG INJ IV ×4 (01:45→18:38)
[2017-06-27] MEDS: ACCU-CHEK XX (01:53)
[2017-06-27] MEDS: LEVOTHYROXINE 175 MCG TAB PO (05:32)
[2017-06-27] MEDS: INSULIN ASPART [NOVOLOG] 3 ML PEN SC ×7 (08:00→20:19)
[2017-06-27] MEDS: CALCIUM ACETATE 667 MG CAP PO ×3 (08:36→17:26)
[2017-06-27] MEDS: DULOXETINE 30 MG CAP DR PO (08:36)
[2017-06-27] MEDS: HYDROCORTISONE 5 MG TAB PO ×2 (08:36→11:57)
[2017-06-27] MEDS: GABAPENTIN 300 MG CAP PO (08:36)
[2017-06-27] MEDS: LANTHANUM 500 MG CHEW PO ×3 (08:36→17:25)
[2017-06-27] MEDS: SEVELAMER CARBONATE 0.8 GM PKT PO ×3 (08:37→17:25)
[2017-06-27] MEDS: INSULIN DETEMIR [LEVEMIR] 3ML CART SC (08:45)
[2017-06-27] MEDS: ONDANSETRON 4 MG INJ IV (09:33)
[2017-06-27] MEDS: NPH, HUMAN INSULIN ISOPHANE 3ML VIAL SC (20:18)
[2017-06-28] MEDS: DIAZEPAM 5 MG TAB PO ×4 (01:14→17:23)
[2017-06-28] MEDS: ACCU-CHEK XX (01:19)
[2017-06-28] MEDS: DIPHENHYDRAMINE 50 MG INJ IV ×5 (01:28→20:49)
[2017-06-28] MEDS: HYDROmorphONE 0.5 MG/0.5 ML SYG IV ×5 (01:28→20:50)
[2017-06-28] MEDS: LEVOTHYROXINE 175 MCG TAB PO (06:15)
[2017-06-28 07:06] LABS: ADD MAN DIFF? NO
[2017-06-28 07:14] LABS: BASOPHIL # 0.1 10^3/ul (0.0-0.1); BASOPHILS % 0.9 % (0.0-2.0); EOSINOPHILS # 0.2 10^3/ul (0.0-0.5); EOSINOPHILS % 2.7 % (0.0-7.0); HEMATOCRIT 31.1 % (37.0-47.0); HEMOGLOBIN 9.5 g/dl (12.0-16.0); LYMPHOCYTES % 13.2 % (15.0-51.0); MEAN CORPUSCULAR HGB CONC 30.5 g/dl (32.0-37.0); MEAN CORPUSCULAR VOLUME 117.8 fl (82.0-101.0); MEAN PLATELET VOLUME 10.1 fl (7.4-10.4); MONOCYTE # 0.5 10^3/ul (0.3-0.9); MONOCYTES % 6.9 % (0.0-11.0); NEUTROPHIL # 5.6 10^3/ul (1.6-7.5); PLATELET COUNT 261 10^3/UL (140-415); RED BLOOD COUNT 2.64 10^6/ul (4.20-5.40); RED CELL DISTRIBUTION WIDTH 16.5 % (11.5-14.5)
[2017-06-28 07:14] LABS: WHITE BLOOD COUNT 7.5 10^3/ul (4.8-10.8)
[2017-06-28 07:42] LABS: ANION GAP 20 (8-16); BLOOD UREA NITROGEN 58 mg/dl (7-20); CALCIUM 8.9 mg/dl (8.4-10.2); CARBON DIOXIDE 26 mmol/L (21-31); CHLORIDE 96 mmol/L (97-110); GLUCOSE 314 mg/dl (70-220); POTASSIUM 5.2 mmol/L (3.5-5.1); SODIUM 137 mmol/L (135-144)
[2017-06-28 08:05] LABS: CREATININE 15.52 mg/dl (0.44-1.00)
[2017-06-28] MEDS: GABAPENTIN 300 MG CAP PO (08:09)
[2017-06-28] MEDS: HYDROCORTISONE 5 MG TAB PO ×2 (08:09→12:06)
[2017-06-28] MEDS: CALCIUM ACETATE 667 MG CAP PO ×3 (08:09→17:23)
[2017-06-28] MEDS: LANTHANUM 500 MG CHEW PO ×3 (08:09→17:23)
[2017-06-28] MEDS: SEVELAMER CARBONATE 0.8 GM PKT PO ×3 (08:09→17:23)
[2017-06-28] MEDS: DULOXETINE 30 MG CAP DR PO (08:10)
[2017-06-28] MEDS: INSULIN DETEMIR [LEVEMIR] 3ML CART SC (08:12)
[2017-06-28] MEDS: INSULIN ASPART [NOVOLOG] 3 ML PEN SC ×7 (08:13→20:48)
[2017-06-28] MEDS: ONDANSETRON 4 MG INJ IV ×2 (08:46→18:38)
[2017-06-28] MEDS: EPOETIN 10000 UNITS/1 ML INJ (ESRD) SC (18:34)
[2017-06-28] MEDS: NPH, HUMAN INSULIN ISOPHANE 3ML VIAL SC (20:48)
[2017-06-29] MEDS: DIAZEPAM 5 MG TAB PO ×4 (00:53→17:27)
[2017-06-29] MEDS: HYDROmorphONE 0.5 MG/0.5 ML SYG IV ×5 (00:54→20:54)
[2017-06-29] MEDS: DIPHENHYDRAMINE 50 MG INJ IV ×5 (00:54→20:54)
[2017-06-29] MEDS: ACCU-CHEK XX (02:00)
[2017-06-29] MEDS: LEVOTHYROXINE 175 MCG TAB PO (05:28)
[2017-06-29 05:29] LABS: ADD MAN DIFF? NO
[2017-06-29 05:39] LABS: WHITE BLOOD COUNT 7.6 10^3/ul (4.8-10.8)
[2017-06-29 05:39] LABS: BASOPHIL # 0.1 10^3/ul (0.0-0.1); BASOPHILS % 1.1 % (0.0-2.0); EOSINOPHILS # 0.2 10^3/ul (0.0-0.5); EOSINOPHILS % 2.6 % (0.0-7.0); HEMATOCRIT 32.2 % (37.0-47.0); HEMOGLOBIN 9.7 g/dl (12.0-16.0); LYMPHOCYTES # 1.1 10^3/ul (0.8-2.9); LYMPHOCYTES % 13.9 % (15.0-51.0); MEAN CORPUSCULAR HEMOGLOBIN 35.1 pg (29.0-33.0); MEAN CORPUSCULAR HGB CONC 30.1 g/dl (32.0-37.0); MEAN CORPUSCULAR VOLUME 116.7 fl (82.0-101.0); MONOCYTE # 0.5 10^3/ul (0.3-0.9); MONOCYTES % 6.7 % (0.0-11.0); NEUTROPHIL # 5.7 10^3/ul (1.6-7.5); NEUTROPHILS % 74.5 % (39.0-77.0); NUCLEATED RED BLOOD CELLS% 0.4 /100WBC (0.0-0.0); PLATELET COUNT 263 10^3/UL (140-415); RED BLOOD COUNT 2.76 10^6/ul (4.20-5.40); RED CELL DISTRIBUTION WIDTH 16.1 % (11.5-14.5)
[2017-06-29 06:10] LABS: ANION GAP 20 (8-16); BLOOD UREA NITROGEN 62 mg/dl (7-20); CALCIUM 9.3 mg/dl (8.4-10.2); CARBON DIOXIDE 28 mmol/L (21-31); CHLORIDE 96 mmol/L (97-110); GLUCOSE 179 mg/dl (70-220); POTASSIUM 5.3 mmol/L (3.5-5.1); SODIUM 139 mmol/L (135-144)
[2017-06-29 06:36] LABS: CREATININE 15.71 mg/dl (0.44-1.00)
[2017-06-29] MEDS: INSULIN DETEMIR [LEVEMIR] 3ML CART SC (08:42)
[2017-06-29] MEDS: INSULIN ASPART [NOVOLOG] 3 ML PEN SC ×7 (08:43→20:15)
[2017-06-29] MEDS: LANTHANUM 500 MG CHEW PO ×3 (08:46→17:28)
[2017-06-29] MEDS: GABAPENTIN 300 MG CAP PO (08:46)
[2017-06-29] MEDS: HYDROCORTISONE 5 MG TAB PO ×2 (08:46→12:00)
[2017-06-29] MEDS: DULOXETINE 30 MG CAP DR PO (08:46)
[2017-06-29] MEDS: CALCIUM ACETATE 667 MG CAP PO ×3 (08:46→17:27)
[2017-06-29] MEDS: SEVELAMER CARBONATE 0.8 GM PKT PO ×3 (08:46→18:13)
[2017-06-29] MEDS: SEVELAMER CARBONATE 2.4 GM PKT PO (18:23)
[2017-06-29] MEDS: NPH, HUMAN INSULIN ISOPHANE 3ML VIAL SC (20:14)
[2017-06-30] MEDS: DIAZEPAM 5 MG TAB PO ×4 (00:11→17:48)
[2017-06-30] MEDS: DIPHENHYDRAMINE 50 MG INJ IV ×6 (01:01→22:19)
[2017-06-30] MEDS: HYDROmorphONE 0.5 MG/0.5 ML SYG IV ×6 (01:01→22:19)
[2017-06-30] MEDS: ACCU-CHEK XX (02:14)
[2017-06-30] MEDS: NPH, HUMAN INSULIN ISOPHANE 3ML VIAL SC ×2 (03:39→20:32)
[2017-06-30] MEDS: LEVOTHYROXINE 175 MCG TAB PO (06:32)
[2017-06-30] MEDS: INSULIN ASPART [NOVOLOG] 3 ML PEN SC ×7 (08:24→20:30)
[2017-06-30] MEDS: INSULIN DETEMIR [LEVEMIR] 3ML CART SC (08:25)
[2017-06-30] MEDS: DULOXETINE 30 MG CAP DR PO (08:27)
[2017-06-30] MEDS: SEVELAMER CARBONATE 2.4 GM PKT PO ×3 (08:27→19:04)
[2017-06-30] MEDS: SEVELAMER CARBONATE 0.8 GM PKT PO ×3 (08:27→19:04)
[2017-06-30] MEDS: HYDROCORTISONE 5 MG TAB PO ×2 (08:28→12:08)
[2017-06-30] MEDS: GABAPENTIN 300 MG CAP PO (08:28)
[2017-06-30] MEDS: LANTHANUM 500 MG CHEW PO ×3 (08:28→17:48)
[2017-06-30] MEDS: CALCIUM ACETATE 667 MG CAP PO ×3 (08:28→17:48)
[2017-06-30] MEDS: ONDANSETRON 4 MG INJ IV (13:45)
[2017-06-30] MEDS ORDERED: NPH, HUMAN INSULIN ISOPHANE 3ML VIAL SC (22:00)
[2017-07-01] MEDS: DIAZEPAM 5 MG TAB PO ×4 (00:19→17:29)
[2017-07-01] MEDS: ACCU-CHEK XX (02:00)
[2017-07-01] MEDS: DIPHENHYDRAMINE 50 MG INJ IV ×4 (04:55→19:52)
[2017-07-01] MEDS: HYDROmorphONE 0.5 MG/0.5 ML SYG IV ×3 (04:55→13:51)
[2017-07-01] MEDS: LEVOTHYROXINE 175 MCG TAB PO (06:22)
[2017-07-01 08:20] LABS: ADD MAN DIFF? NO
[2017-07-01 08:26] LABS: WHITE BLOOD COUNT 8.8 10^3/ul (4.8-10.8)
[2017-07-01 08:26] LABS: BASOPHIL # 0.1 10^3/ul (0.0-0.1); EOSINOPHILS # 0.3 10^3/ul (0.0-0.5); EOSINOPHILS % 3.4 % (0.0-7.0); HEMATOCRIT 31.8 % (37.0-47.0); HEMOGLOBIN 9.8 g/dl (12.0-16.0); LYMPHOCYTES % 11.8 % (15.0-51.0); MEAN CORPUSCULAR HEMOGLOBIN 35.5 pg (29.0-33.0); MEAN CORPUSCULAR HGB CONC 30.8 g/dl (32.0-37.0); MEAN CORPUSCULAR VOLUME 115.2 fl (82.0-101.0); MONOCYTE # 0.4 10^3/ul (0.3-0.9); NEUTROPHIL # 6.9 10^3/ul (1.6-7.5); NEUTROPHILS % 77.9 % (39.0-77.0); PLATELET COUNT 275 10^3/UL (140-415); RED BLOOD COUNT 2.76 10^6/ul (4.20-5.40); RED CELL DISTRIBUTION WIDTH 15.9 % (11.5-14.5)
[2017-07-01] MEDS: GABAPENTIN 300 MG CAP PO (08:26)
[2017-07-01] MEDS: HYDROCORTISONE 5 MG TAB PO ×2 (08:26→12:12)
[2017-07-01] MEDS: CALCIUM ACETATE 667 MG CAP PO ×3 (08:27→17:30)
[2017-07-01] MEDS: DULOXETINE 30 MG CAP DR PO (08:27)
[2017-07-01] MEDS: INSULIN DETEMIR [LEVEMIR] 3ML CART SC (08:28)
[2017-07-01] MEDS: SEVELAMER CARBONATE 0.8 GM PKT PO ×3 (08:28→17:31)
[2017-07-01] MEDS: SEVELAMER CARBONATE 2.4 GM PKT PO ×3 (08:28→17:30)
[2017-07-01] MEDS: INSULIN ASPART [NOVOLOG] 3 ML PEN SC ×7 (08:30→21:04)
[2017-07-01 08:48] LABS: ANION GAP 21 (8-16); BLOOD UREA NITROGEN 66 mg/dl (7-20); CALCIUM 9.5 mg/dl (8.4-10.2); CARBON DIOXIDE 27 mmol/L (21-31); CHLORIDE 95 mmol/L (97-110); GLUCOSE 217 mg/dl (70-220); MAGNESIUM 2.6 mg/dl (1.7-2.5); PHOSPHORUS 6.2 mg/dl (2.5-4.9); POTASSIUM 4.8 mmol/L (3.5-5.1); SODIUM 138 mmol/L (135-144)
[2017-07-01] MEDS: LANTHANUM 500 MG CHEW PO ×3 (10:17→17:30)
[2017-07-01] MEDS: ONDANSETRON 4 MG INJ IV (10:18)
[2017-07-01] MEDS: HYDROCODONE/APAP (5/325) TAB PO ×2 (10:22→15:59)
[2017-07-01] MEDS: EPOETIN 10000 UNITS/1 ML INJ (ESRD) SC (17:29)
[2017-07-01] MEDS: HYDROmorphONE 2 MG TAB PO ×2 (18:52→21:41)
[2017-07-01] MEDS: NPH, HUMAN INSULIN ISOPHANE 3ML VIAL SC (19:52)
[2017-07-02] MEDS: DIAZEPAM 5 MG TAB PO ×4 (00:20→18:14)
[2017-07-02] MEDS: DIPHENHYDRAMINE 50 MG INJ IV ×5 (00:24→21:35)
[2017-07-02] MEDS: ACCU-CHEK XX (02:00)
[2017-07-02] MEDS: HYDROmorphONE 2 MG TAB PO ×3 (02:45→20:33)
[2017-07-02] MEDS: ONDANSETRON 4 MG INJ IV (02:48)
[2017-07-02] MEDS: LEVOTHYROXINE 175 MCG TAB PO (06:05)
[2017-07-02 06:19] LABS: ANION GAP 22 (8-16); BLOOD UREA NITROGEN 65 mg/dl (7-20); CALCIUM 9.4 mg/dl (8.4-10.2); CARBON DIOXIDE 25 mmol/L (21-31); CHLORIDE 95 mmol/L (97-110); GLUCOSE 263 mg/dl (70-220); POTASSIUM 5.3 mmol/L (3.5-5.1); SODIUM 137 mmol/L (135-144)
[2017-07-02 06:41] LABS: CREATININE 15.96 mg/dl (0.44-1.00)
[2017-07-02] MEDS: LANTHANUM 500 MG CHEW PO ×3 (08:45→17:20)
[2017-07-02] MEDS: SEVELAMER CARBONATE 2.4 GM PKT PO ×3 (08:46→17:20)
[2017-07-02] MEDS: SEVELAMER CARBONATE 0.8 GM PKT PO ×3 (08:46→17:20)
[2017-07-02] MEDS: CALCIUM ACETATE 667 MG CAP PO ×3 (08:46→17:20)
[2017-07-02] MEDS: INSULIN ASPART [NOVOLOG] 3 ML PEN SC ×7 (08:49→20:35)
[2017-07-02] MEDS: INSULIN DETEMIR [LEVEMIR] 3ML CART SC (08:50)
[2017-07-02] MEDS: HYDROCORTISONE 5 MG TAB PO ×2 (08:51→11:53)
[2017-07-02] MEDS: GABAPENTIN 300 MG CAP PO (08:51)
[2017-07-02] MEDS: DULOXETINE 30 MG CAP DR PO (08:51)
[2017-07-02] MEDS: NPH, HUMAN INSULIN ISOPHANE 3ML VIAL SC (20:34)
[2017-07-03] MEDS: ACCU-CHEK XX (02:00)
[2017-07-03] MEDS: HYDROmorphONE 2 MG TAB PO ×5 (02:23→21:32)
[2017-07-03] MEDS: DIPHENHYDRAMINE 50 MG INJ IV ×5 (02:28→21:32)
[2017-07-03] MEDS: DIAZEPAM 5 MG TAB PO ×4 (02:45→17:30)
[2017-07-03] MEDS: LEVOTHYROXINE 175 MCG TAB PO (05:10)
[2017-07-03 05:49] LABS: ADD MAN DIFF? NO
[2017-07-03 05:58] LABS: WHITE BLOOD COUNT 8.4 10^3/ul (4.8-10.8)
[2017-07-03 05:58] LABS: BASOPHIL # 0.1 10^3/ul (0.0-0.1); BASOPHILS % 0.8 % (0.0-2.0); EOSINOPHILS # 0.3 10^3/ul (0.0-0.5); EOSINOPHILS % 3.6 % (0.0-7.0); HEMATOCRIT 31.6 % (37.0-47.0); HEMOGLOBIN 9.9 g/dl (12.0-16.0); LYMPHOCYTES # 1.2 10^3/ul (0.8-2.9); LYMPHOCYTES % 14.2 % (15.0-51.0); MEAN CORPUSCULAR HEMOGLOBIN 35.6 pg (29.0-33.0); MEAN CORPUSCULAR HGB CONC 31.3 g/dl (32.0-37.0); MEAN CORPUSCULAR VOLUME 113.7 fl (82.0-101.0); MEAN PLATELET VOLUME 10.2 fl (7.4-10.4); MONOCYTE # 0.5 10^3/ul (0.3-0.9); MONOCYTES % 5.8 % (0.0-11.0); NEUTROPHIL # 6.3 10^3/ul (1.6-7.5); NEUTROPHILS % 74.9 % (39.0-77.0); NUCLEATED RED BLOOD CELLS% 0.2 /100WBC (0.0-0.0); PLATELET COUNT 260 10^3/UL (140-415); RED BLOOD COUNT 2.78 10^6/ul (4.20-5.40); RED CELL DISTRIBUTION WIDTH 15.8 % (11.5-14.5)
[2017-07-03 06:41] LABS: ANION GAP 22 (8-16); BLOOD UREA NITROGEN 65 mg/dl (7-20); CALCIUM 9.4 mg/dl (8.4-10.2); CARBON DIOXIDE 25 mmol/L (21-31); CHLORIDE 96 mmol/L (97-110); GLUCOSE 240 mg/dl (70-220); POTASSIUM 5.3 mmol/L (3.5-5.1); SODIUM 138 mmol/L (135-144)
[2017-07-03 06:57] LABS: CREATININE 16.36 mg/dl (0.44-1.00)
[2017-07-03] MEDS: LANTHANUM 500 MG CHEW PO ×3 (07:35→17:30)
[2017-07-03] MEDS: GABAPENTIN 300 MG CAP PO (08:33)
[2017-07-03] MEDS: HYDROCORTISONE 5 MG TAB PO ×2 (08:33→12:18)
[2017-07-03] MEDS: DULOXETINE 30 MG CAP DR PO (08:33)
[2017-07-03] MEDS: CALCIUM ACETATE 667 MG CAP PO ×3 (08:34→17:30)
[2017-07-03] MEDS: SEVELAMER CARBONATE 2.4 GM PKT PO ×3 (08:34→17:29)
[2017-07-03] MEDS: SEVELAMER CARBONATE 0.8 GM PKT PO ×3 (08:34→17:29)
[2017-07-03] MEDS: INSULIN ASPART [NOVOLOG] 3 ML PEN SC ×7 (08:48→20:10)
[2017-07-03] MEDS: INSULIN DETEMIR [LEVEMIR] 3ML CART SC (08:49)
[2017-07-03] MEDS: EPOETIN 10000 UNITS/1 ML INJ (ESRD) SC (17:31)
[2017-07-03] MEDS: NPH, HUMAN INSULIN ISOPHANE 3ML VIAL SC (20:18)
[2017-07-04] MEDS: ACCU-CHEK XX (02:00)
[2017-07-04] MEDS: DIPHENHYDRAMINE 50 MG INJ IV ×3 (02:30→20:41)
[2017-07-04] MEDS: LEVOTHYROXINE 175 MCG TAB PO (05:30)
[2017-07-04] MEDS: DIAZEPAM 5 MG TAB PO ×4 (05:30→17:29)
[2017-07-04 07:35] LABS: CARBON DIOXIDE 26 mmol/L (21-31); POTASSIUM 4.9 mmol/L (3.5-5.1); SODIUM 140 mmol/L (135-144)
[2017-07-04] MEDS: LANTHANUM 500 MG CHEW PO ×3 (07:35→17:28)
[2017-07-04] MEDS: INSULIN ASPART [NOVOLOG] 3 ML PEN SC ×7 (07:35→22:02)
[2017-07-04] MEDS: CALCIUM ACETATE 667 MG CAP PO ×3 (07:35→17:29)
[2017-07-04] MEDS: SEVELAMER CARBONATE 2.4 GM PKT PO ×3 (07:35→17:28)
[2017-07-04] MEDS: SEVELAMER CARBONATE 0.8 GM PKT PO ×3 (07:35→17:28)
[2017-07-04 07:36] LABS: BLOOD UREA NITROGEN 61 mg/dl (7-20); CALCIUM 9.3 mg/dl (8.4-10.2)
[2017-07-04 07:39] LABS: GLUCOSE 32 mg/dl (70-220)
[2017-07-04] MEDS: GLUCOSE GEL 15 GRAM TUBE BUCCAL (07:52)
[2017-07-04 07:53] LABS: ANION GAP 22 (8-16); CHLORIDE 97 mmol/L (97-110); CREATININE 16.65 mg/dl (0.44-1.00)
[2017-07-04] MEDS: ALBUMIN HUMAN 25% 100 ML IV (11:23)
[2017-07-04] MEDS: DULOXETINE 30 MG CAP DR PO (11:24)
[2017-07-04] MEDS: HYDROCORTISONE 5 MG TAB PO ×2 (11:24→11:26)
[2017-07-04] MEDS: INSULIN DETEMIR [LEVEMIR] 3ML CART SC (11:25)
[2017-07-04] MEDS: GABAPENTIN 300 MG CAP PO (11:25)
[2017-07-04] MEDS: HYDROmorphONE 2 MG TAB PO (17:29)
[2017-07-04] MEDS: NPH, HUMAN INSULIN ISOPHANE 3ML VIAL SC (20:40)
[2017-07-05] MEDS: DIAZEPAM 5 MG TAB PO ×5 (00:44→23:37)
[2017-07-05] MEDS: ACCU-CHEK XX (02:12)
[2017-07-05] MEDS: DIPHENHYDRAMINE 50 MG INJ IV ×4 (02:32→18:52)
[2017-07-05] MEDS: HYDROmorphONE 2 MG TAB PO ×2 (05:05→13:19)
[2017-07-05] MEDS: LEVOTHYROXINE 175 MCG TAB PO (05:54)
[2017-07-05] MEDS: LANTHANUM 500 MG CHEW PO ×3 (08:12→17:07)
[2017-07-05] MEDS: CALCIUM ACETATE 667 MG CAP PO ×3 (08:13→17:07)
[2017-07-05] MEDS: GABAPENTIN 300 MG CAP PO (08:14)
[2017-07-05] MEDS: SEVELAMER CARBONATE 2.4 GM PKT PO ×3 (08:14→18:06)
[2017-07-05] MEDS: DULOXETINE 30 MG CAP DR PO (08:14)
[2017-07-05] MEDS: HYDROCORTISONE 5 MG TAB PO ×2 (08:14→12:24)
[2017-07-05] MEDS: SEVELAMER CARBONATE 0.8 GM PKT PO ×3 (08:16→18:06)
[2017-07-05] MEDS: INSULIN DETEMIR [LEVEMIR] 3ML CART SC (08:17)
[2017-07-05] MEDS: INSULIN ASPART [NOVOLOG] 3 ML PEN SC ×7 (08:20→21:39)
[2017-07-05] MEDS: EPOETIN 10000 UNITS/1 ML INJ (ESRD) SC (17:00)
[2017-07-05] MEDS: NPH, HUMAN INSULIN ISOPHANE 3ML VIAL SC (21:38)
[2017-07-06] MEDS: ACCU-CHEK XX (02:28)
[2017-07-06] MEDS: INSULIN ASPART [NOVOLOG] 3 ML PEN SC ×8 (02:46→22:05)
[2017-07-06] MEDS: DIPHENHYDRAMINE 50 MG INJ IV ×3 (04:59→20:04)
[2017-07-06] MEDS: LEVOTHYROXINE 175 MCG TAB PO (05:00)
[2017-07-06 05:18] LABS: ADD MAN DIFF? NO
[2017-07-06 05:27] LABS: WHITE BLOOD COUNT 4.9 10^3/ul (4.8-10.8)
[2017-07-06 05:27] LABS: BASOPHIL # 0.1 10^3/ul (0.0-0.1); EOSINOPHILS # 0.2 10^3/ul (0.0-0.5); EOSINOPHILS % 4.7 % (0.0-7.0); HEMATOCRIT 26.7 % (37.0-47.0); HEMOGLOBIN 8.3 g/dl (12.0-16.0); LYMPHOCYTES # 0.6 10^3/ul (0.8-2.9); LYMPHOCYTES % 13.1 % (15.0-51.0); MEAN CORPUSCULAR HEMOGLOBIN 35.5 pg (29.0-33.0); MEAN CORPUSCULAR HGB CONC 31.1 g/dl (32.0-37.0); MEAN CORPUSCULAR VOLUME 114.1 fl (82.0-101.0); MONOCYTE # 0.3 10^3/ul (0.3-0.9); MONOCYTES % 6.6 % (0.0-11.0); NEUTROPHIL # 3.6 10^3/ul (1.6-7.5); NEUTROPHILS % 73.4 % (39.0-77.0); NUCLEATED RED BLOOD CELLS% 0.4 /100WBC (0.0-0.0); RED BLOOD COUNT 2.34 10^6/ul (4.20-5.40); RED CELL DISTRIBUTION WIDTH 16.1 % (11.5-14.5)
[2017-07-06 05:31] LABS: PLATELET COUNT 421 10^3/UL (140-415); POSITIVE DIFF @See below
[2017-07-06] MEDS: DIAZEPAM 5 MG TAB PO ×3 (06:00→17:18)
[2017-07-06 06:19] LABS: ANION GAP 24 (8-16)
[2017-07-06 06:40] LABS: BLOOD UREA NITROGEN 59 mg/dl (7-20); CALCIUM 9.4 mg/dl (8.4-10.2); CARBON DIOXIDE 24 mmol/L (21-31); CHLORIDE 94 mmol/L (97-110); CREATININE 15.62 mg/dl (0.44-1.00); GLUCOSE 342 mg/dl (70-220); POTASSIUM 5.2 mmol/L (3.5-5.1); SODIUM 137 mmol/L (135-144)
[2017-07-06] MEDS: CALCIUM ACETATE 667 MG CAP PO ×3 (07:59→17:18)
[2017-07-06] MEDS: SEVELAMER CARBONATE 0.8 GM PKT PO ×3 (07:59→17:18)
[2017-07-06] MEDS: SEVELAMER CARBONATE 2.4 GM PKT PO ×3 (08:00→17:18)
[2017-07-06] MEDS: LANTHANUM 500 MG CHEW PO ×3 (08:03→17:18)
[2017-07-06] MEDS: INSULIN DETEMIR [LEVEMIR] 3ML CART SC (08:33)
[2017-07-06] MEDS: GABAPENTIN 300 MG CAP PO (08:35)
[2017-07-06] MEDS: DULOXETINE 30 MG CAP DR PO (08:35)
[2017-07-06] MEDS: HYDROCORTISONE 5 MG TAB PO ×2 (08:36→11:55)
[2017-07-06 10:23] LABS: ANISOCYTOSIS 1+ (0-0); EOSINOPHILS % (M) 3 % (0-7); LYMPHOCYTES #M 0.5 10^3/ul (0.8-2.9); LYMPHOCYTES % (M) 12 % (15-51); MONOCYTES % (M) 2 % (0-11); PLATELET ESTIMATE NORMAL; SEGMENTED NEUTROPHILS (M) % 83 % (39-77); SMUDGE%M 8 % (0-0)
[2017-07-06] MEDS: ONDANSETRON 4 MG INJ IV (12:06)
[2017-07-06] MEDS: NPH, HUMAN INSULIN ISOPHANE 3ML VIAL SC (19:55)
[2017-07-07] MEDS: DIAZEPAM 5 MG TAB PO ×4 (00:18→17:29)
[2017-07-07] MEDS: DIPHENHYDRAMINE 50 MG INJ IV ×4 (00:19→21:53)
[2017-07-07] MEDS: ACCU-CHEK XX (02:00)
[2017-07-07] MEDS: LEVOTHYROXINE 175 MCG TAB PO (06:23)
[2017-07-07] MEDS: SEVELAMER CARBONATE 2.4 GM PKT PO ×3 (08:02→17:28)
[2017-07-07] MEDS: CALCIUM ACETATE 667 MG CAP PO ×3 (08:02→17:28)
[2017-07-07] MEDS: SEVELAMER CARBONATE 0.8 GM PKT PO ×3 (08:02→17:28)
[2017-07-07] MEDS: LANTHANUM 500 MG CHEW PO ×3 (08:02→17:26)
[2017-07-07] MEDS: INSULIN ASPART [NOVOLOG] 3 ML PEN SC ×7 (08:03→21:50)
[2017-07-07] MEDS: INSULIN DETEMIR [LEVEMIR] 3ML CART SC (08:05)
[2017-07-07] MEDS: HYDROCORTISONE 5 MG TAB PO ×2 (08:52→11:25)
[2017-07-07] MEDS: ONDANSETRON 4 MG INJ IV (08:52)
[2017-07-07] MEDS: GABAPENTIN 300 MG CAP PO (08:52)
[2017-07-07] MEDS: DULOXETINE 30 MG CAP DR PO (08:52)
[2017-07-07] MEDS: NPH, HUMAN INSULIN ISOPHANE 3ML VIAL SC (19:35)
[2017-07-07] MEDS: HYDROCODONE/APAP (5/325) TAB PO (19:37)
[2017-07-07] MEDS: HYDROmorphONE 2 MG TAB PO (23:05)
[2017-07-08] MEDS: DIAZEPAM 5 MG TAB PO ×4 (00:41→17:59)
[2017-07-08] MEDS: ACCU-CHEK XX (02:00)
[2017-07-08] MEDS: DIPHENHYDRAMINE 50 MG INJ IV ×5 (04:53→20:22)
[2017-07-08 05:21] LABS: ADD MAN DIFF? NO
[2017-07-08 05:33] LABS: BASOPHIL # 0.1 10^3/ul (0.0-0.1); BASOPHILS % 1.2 % (0.0-2.0); EOSINOPHILS # 0.3 10^3/ul (0.0-0.5); EOSINOPHILS % 4.2 % (0.0-7.0); HEMATOCRIT 31.3 % (37.0-47.0); HEMOGLOBIN 9.7 g/dl (12.0-16.0); LYMPHOCYTES # 1.1 10^3/ul (0.8-2.9); LYMPHOCYTES % 15.4 % (15.0-51.0); MEAN CORPUSCULAR HEMOGLOBIN 35.1 pg (29.0-33.0); MEAN CORPUSCULAR VOLUME 113.4 fl (82.0-101.0); MEAN PLATELET VOLUME 10.5 fl (7.4-10.4); MONOCYTE # 0.5 10^3/ul (0.3-0.9); MONOCYTES % 6.1 % (0.0-11.0); NEUTROPHIL # 5.4 10^3/ul (1.6-7.5); NEUTROPHILS % 72.4 % (39.0-77.0); NUCLEATED RED BLOOD CELLS% 0.3 /100WBC (0.0-0.0); PLATELET COUNT 214 10^3/UL (140-415); RED BLOOD COUNT 2.76 10^6/ul (4.20-5.40); RED CELL DISTRIBUTION WIDTH 15.6 % (11.5-14.5)
[2017-07-08 05:33] LABS: WHITE BLOOD COUNT 7.4 10^3/ul (4.8-10.8)
[2017-07-08 05:54] LABS: ANION GAP 21 (8-16); BLOOD UREA NITROGEN 57 mg/dl (7-20); CALCIUM 9.7 mg/dl (8.4-10.2); CARBON DIOXIDE 26 mmol/L (21-31); CHLORIDE 98 mmol/L (97-110); GLUCOSE 210 mg/dl (70-220); POTASSIUM 4.9 mmol/L (3.5-5.1); SODIUM 140 mmol/L (135-144)
[2017-07-08] MEDS: LEVOTHYROXINE 175 MCG TAB PO (06:14)
[2017-07-08 06:27] LABS: CREATININE 17.09 mg/dl (0.44-1.00)
[2017-07-08] MEDS: SEVELAMER CARBONATE 0.8 GM PKT PO ×3 (08:08→16:57)
[2017-07-08] MEDS: SEVELAMER CARBONATE 2.4 GM PKT PO ×3 (08:08→16:57)
[2017-07-08] MEDS: LANTHANUM 500 MG CHEW PO ×3 (08:08→16:58)
[2017-07-08] MEDS: DULOXETINE 30 MG CAP DR PO (08:09)
[2017-07-08] MEDS: HYDROCORTISONE 5 MG TAB PO ×2 (08:09→11:23)
[2017-07-08] MEDS: CALCIUM ACETATE 667 MG CAP PO ×3 (08:09→16:58)
[2017-07-08] MEDS: GABAPENTIN 300 MG CAP PO (08:17)
[2017-07-08] MEDS: INSULIN ASPART [NOVOLOG] 3 ML PEN SC ×7 (08:19→20:27)
[2017-07-08] MEDS: ONDANSETRON 4 MG INJ IV ×2 (08:54→15:56)
[2017-07-08] MEDS: HYDROCODONE/APAP (5/325) TAB PO ×3 (08:54→17:20)
[2017-07-08] MEDS: INSULIN DETEMIR [LEVEMIR] 3ML CART SC (09:39)
[2017-07-08] MEDS: HYDROmorphONE 2 MG TAB PO ×2 (15:56→20:22)
[2017-07-08] MEDS: EPOETIN 10000 UNITS/1 ML INJ (ESRD) SC (16:57)
[2017-07-08] MEDS: NPH, HUMAN INSULIN ISOPHANE 3ML VIAL SC (20:27)
[2017-07-09] MEDS: DIAZEPAM 5 MG TAB PO ×4 (00:37→17:41)
[2017-07-09] MEDS: ACCU-CHEK XX (02:00)
[2017-07-09] MEDS: HYDROmorphONE 2 MG TAB PO ×5 (02:20→22:57)
[2017-07-09] MEDS: DIPHENHYDRAMINE 50 MG INJ IV ×5 (02:20→22:57)
[2017-07-09] MEDS: ONDANSETRON 4 MG INJ IV ×2 (02:34→14:47)
[2017-07-09] MEDS: LEVOTHYROXINE 175 MCG TAB PO (05:24)
[2017-07-09] MEDS: INSULIN ASPART [NOVOLOG] 3 ML PEN SC ×7 (08:00→20:40)
[2017-07-09] MEDS: CALCIUM ACETATE 667 MG CAP PO ×3 (08:10→17:42)
[2017-07-09] MEDS: LANTHANUM 500 MG CHEW PO ×3 (08:10→17:42)
[2017-07-09] MEDS: SEVELAMER CARBONATE 2.4 GM PKT PO ×3 (08:10→17:41)
[2017-07-09] MEDS: SEVELAMER CARBONATE 0.8 GM PKT PO ×3 (08:10→17:41)
[2017-07-09] MEDS: INSULIN DETEMIR [LEVEMIR] 3ML CART SC (08:12)
[2017-07-09] MEDS: GABAPENTIN 300 MG CAP PO (08:52)
[2017-07-09] MEDS: DULOXETINE 30 MG CAP DR PO (08:52)
[2017-07-09] MEDS: HYDROCORTISONE 5 MG TAB PO ×2 (10:50→11:30)
[2017-07-09] MEDS: HYDROCODONE/APAP (5/325) TAB PO (20:30)
[2017-07-09] MEDS: NPH, HUMAN INSULIN ISOPHANE 3ML VIAL SC (20:37)
[2017-07-10] MEDS: DIAZEPAM 5 MG TAB PO ×5 (00:16→23:56)
[2017-07-10] MEDS: ACCU-CHEK XX (03:14)
[2017-07-10] MEDS: DIPHENHYDRAMINE 50 MG INJ IV ×4 (05:14→20:27)
[2017-07-10] MEDS: HYDROmorphONE 2 MG TAB PO ×4 (05:14→20:27)
[2017-07-10 05:59] LABS: ADD MAN DIFF? NO
[2017-07-10 06:08] LABS: BASOPHIL # 0.1 10^3/ul (0.0-0.1); BASOPHILS % 0.9 % (0.0-2.0); EOSINOPHILS # 0.4 10^3/ul (0.0-0.5); EOSINOPHILS % 4.6 % (0.0-7.0); HEMATOCRIT 31.7 % (37.0-47.0); HEMOGLOBIN 9.7 g/dl (12.0-16.0); LYMPHOCYTES % 12.1 % (15.0-51.0); MEAN CORPUSCULAR HGB CONC 30.6 g/dl (32.0-37.0); MEAN CORPUSCULAR VOLUME 114.4 fl (82.0-101.0); MEAN PLATELET VOLUME 10.5 fl (7.4-10.4); MONOCYTE # 0.6 10^3/ul (0.3-0.9); MONOCYTES % 6.8 % (0.0-11.0); NEUTROPHIL # 6.3 10^3/ul (1.6-7.5); NEUTROPHILS % 74.9 % (39.0-77.0); NUCLEATED RED BLOOD CELLS% 0.2 /100WBC (0.0-0.0); PLATELET COUNT 200 10^3/UL (140-415); RED BLOOD COUNT 2.77 10^6/ul (4.20-5.40); RED CELL DISTRIBUTION WIDTH 15.5 % (11.5-14.5)
[2017-07-10 06:08] LABS: WHITE BLOOD COUNT 8.4 10^3/ul (4.8-10.8)
[2017-07-10] MEDS: LEVOTHYROXINE 175 MCG TAB PO (06:15)
[2017-07-10 06:40] LABS: ANION GAP 22 (8-16); BLOOD UREA NITROGEN 61 mg/dl (7-20); CALCIUM 9.6 mg/dl (8.4-10.2); CARBON DIOXIDE 27 mmol/L (21-31); CHLORIDE 94 mmol/L (97-110); GLUCOSE 167 mg/dl (70-220); MAGNESIUM 2.5 mg/dl (1.7-2.5); PHOSPHORUS 5.5 mg/dl (2.5-4.9); SODIUM 137 mmol/L (135-144)
[2017-07-10 06:49] LABS: CREATININE 17.68 mg/dl (0.44-1.00)
[2017-07-10 06:51] LABS: POTASSIUM 6.2 mmol/L (3.5-5.1)
[2017-07-10] MEDS: NA POLYST SULFON 15 GM/60 ML BTL PO (07:48)
[2017-07-10] MEDS: LANTHANUM 500 MG CHEW PO ×3 (07:53→17:58)
[2017-07-10] MEDS: SEVELAMER CARBONATE 0.8 GM PKT PO ×3 (07:53→17:57)
[2017-07-10] MEDS: CALCIUM ACETATE 667 MG CAP PO ×3 (07:53→17:57)
[2017-07-10] MEDS: SEVELAMER CARBONATE 2.4 GM PKT PO ×3 (07:53→17:57)
[2017-07-10] MEDS: FUROSEMIDE 40 MG INJ IV ×2 (07:54→08:06)
[2017-07-10] MEDS: INSULIN ASPART [NOVOLOG] 3 ML PEN SC ×7 (07:56→21:00)
[2017-07-10] MEDS: INSULIN DETEMIR [LEVEMIR] 3ML CART SC (07:57)
[2017-07-10] MEDS: ONDANSETRON 4 MG INJ IV (08:40)
[2017-07-10] MEDS: DULOXETINE 30 MG CAP DR PO (08:45)
[2017-07-10] MEDS: GABAPENTIN 300 MG CAP PO (08:45)
[2017-07-10] MEDS: HYDROCORTISONE 5 MG TAB PO ×3 (08:46→12:42)
[2017-07-10 12:18] LABS: ANION GAP 22 (8-16); BLOOD UREA NITROGEN 59 mg/dl (7-20); CALCIUM 9.8 mg/dl (8.4-10.2); CARBON DIOXIDE 25 mmol/L (21-31); CHLORIDE 95 mmol/L (97-110); GLUCOSE 214 mg/dl (70-220); POTASSIUM 4.8 mmol/L (3.5-5.1); SODIUM 137 mmol/L (135-144)
[2017-07-10 12:41] LABS: CREATININE 16.85 mg/dl (0.44-1.00)
[2017-07-10] MEDS: EPOETIN 10000 UNITS/1 ML INJ (ESRD) SC (17:59)
[2017-07-10] MEDS: NPH, HUMAN INSULIN ISOPHANE 3ML VIAL SC (20:21)
[2017-07-11] MEDS: ACCU-CHEK XX (02:00)
[2017-07-11] MEDS: DIPHENHYDRAMINE 50 MG INJ IV ×4 (02:24→20:49)
[2017-07-11] MEDS: HYDROmorphONE 2 MG TAB PO ×2 (02:24→14:01)
[2017-07-11 05:12] LABS: ADD MAN DIFF? NO
[2017-07-11 05:13] LABS: WHITE BLOOD COUNT 8.3 10^3/ul (4.8-10.8)
[2017-07-11 05:13] LABS: BASOPHIL # 0.1 10^3/ul (0.0-0.1); BASOPHILS % 0.6 % (0.0-2.0); EOSINOPHILS # 0.3 10^3/ul (0.0-0.5); HEMOGLOBIN 9.7 g/dl (12.0-16.0); LYMPHOCYTES # 0.8 10^3/ul (0.8-2.9); LYMPHOCYTES % 9.1 % (15.0-51.0); MEAN CORPUSCULAR HEMOGLOBIN 35.4 pg (29.0-33.0); MEAN CORPUSCULAR HGB CONC 31.3 g/dl (32.0-37.0); MEAN CORPUSCULAR VOLUME 113.1 fl (82.0-101.0); MEAN PLATELET VOLUME 10.3 fl (7.4-10.4); MONOCYTE # 0.5 10^3/ul (0.3-0.9); MONOCYTES % 5.8 % (0.0-11.0); NEUTROPHIL # 6.6 10^3/ul (1.6-7.5); NEUTROPHILS % 79.9 % (39.0-77.0); NUCLEATED RED BLOOD CELLS% 0.2 /100WBC (0.0-0.0); PLATELET COUNT 181 10^3/UL (140-415); RED BLOOD COUNT 2.74 10^6/ul (4.20-5.40); RED CELL DISTRIBUTION WIDTH 15.4 % (11.5-14.5)
[2017-07-11 05:31] LABS: ANION GAP 19 (8-16); BLOOD UREA NITROGEN 68 mg/dl (7-20); CALCIUM 9.2 mg/dl (8.4-10.2); CARBON DIOXIDE 27 mmol/L (21-31); CHLORIDE 97 mmol/L (97-110); GLUCOSE 126 mg/dl (70-220); MAGNESIUM 2.4 mg/dl (1.7-2.5); PHOSPHORUS 5.5 mg/dl (2.5-4.9); POTASSIUM 5.2 mmol/L (3.5-5.1); SODIUM 138 mmol/L (135-144)
[2017-07-11 05:44] LABS: CREATININE 17.04 mg/dl (0.44-1.00)
[2017-07-11] MEDS: DIAZEPAM 5 MG TAB PO ×3 (06:05→17:44)
[2017-07-11] MEDS: LEVOTHYROXINE 175 MCG TAB PO (06:05)
[2017-07-11] MEDS: GABAPENTIN 300 MG CAP PO (08:43)
[2017-07-11] MEDS: CALCIUM ACETATE 667 MG CAP PO ×3 (08:43→17:42)
[2017-07-11] MEDS: DULOXETINE 30 MG CAP DR PO (08:43)
[2017-07-11] MEDS: LANTHANUM 500 MG CHEW PO ×3 (08:43→17:41)
[2017-07-11] MEDS: SEVELAMER CARBONATE 2.4 GM PKT PO ×3 (08:43→17:41)
[2017-07-11] MEDS: INSULIN ASPART [NOVOLOG] 3 ML PEN SC ×7 (08:46→21:00)
[2017-07-11] MEDS: INSULIN DETEMIR [LEVEMIR] 3ML CART SC (08:47)
[2017-07-11] MEDS: SEVELAMER CARBONATE 0.8 GM PKT PO ×3 (08:50→17:41)
[2017-07-11] MEDS: HYDROCORTISONE 5 MG TAB PO ×2 (09:00→12:50)
[2017-07-11] MEDS: ONDANSETRON 4 MG INJ IV (09:46)
[2017-07-11] MEDS: NPH, HUMAN INSULIN ISOPHANE 3ML VIAL SC (20:32)
[2017-07-12] MEDS: ONDANSETRON 4 MG INJ IV ×3 (00:47→18:52)
[2017-07-12] MEDS: DIPHENHYDRAMINE 50 MG INJ IV ×5 (01:07→22:30)
[2017-07-12] MEDS: ACCU-CHEK XX (02:00)
[2017-07-12] MEDS: LEVOTHYROXINE 175 MCG TAB PO (05:38)
[2017-07-12] MEDS: DIAZEPAM 5 MG TAB PO ×5 (05:38→17:58)
[2017-07-12 06:47] LABS: ANION GAP 22 (8-16); BLOOD UREA NITROGEN 57 mg/dl (7-20); CALCIUM 9.6 mg/dl (8.4-10.2); CARBON DIOXIDE 25 mmol/L (21-31); CHLORIDE 95 mmol/L (97-110); GLUCOSE 239 mg/dl (70-220); MAGNESIUM 2.4 mg/dl (1.7-2.5); POTASSIUM 5.1 mmol/L (3.5-5.1); SODIUM 137 mmol/L (135-144)
[2017-07-12 07:00] LABS: CREATININE 16.04 mg/dl (0.44-1.00)
[2017-07-12] MEDS: LANTHANUM 500 MG CHEW PO ×3 (08:57→17:51)
[2017-07-12] MEDS: HYDROCORTISONE 5 MG TAB PO ×2 (08:57→12:25)
[2017-07-12] MEDS: GABAPENTIN 300 MG CAP PO (08:58)
[2017-07-12] MEDS: DULOXETINE 30 MG CAP DR PO (08:58)
[2017-07-12] MEDS: SEVELAMER CARBONATE 2.4 GM PKT PO ×3 (08:58→17:51)
[2017-07-12] MEDS: SEVELAMER CARBONATE 0.8 GM PKT PO ×3 (08:58→17:51)
[2017-07-12] MEDS: CALCIUM ACETATE 667 MG CAP PO ×3 (08:59→17:51)
[2017-07-12] MEDS: INSULIN ASPART [NOVOLOG] 3 ML PEN SC ×7 (09:02→20:47)
[2017-07-12] MEDS: INSULIN DETEMIR [LEVEMIR] 3ML CART SC (09:04)
[2017-07-12] MEDS: EPOETIN 10000 UNITS/1 ML INJ (ESRD) SC (17:58)
[2017-07-12] MEDS: NPH, HUMAN INSULIN ISOPHANE 3ML VIAL SC (21:00)
[2017-07-13] MEDS: ACCU-CHEK XX (01:16)
[2017-07-13] MEDS: DIPHENHYDRAMINE 50 MG INJ IV ×4 (03:29→23:11)
[2017-07-13] MEDS: LEVOTHYROXINE 175 MCG TAB PO (05:20)
[2017-07-13] MEDS: DIAZEPAM 5 MG TAB PO ×4 (05:20→18:00)
[2017-07-13] MEDS: LANTHANUM 500 MG CHEW PO ×3 (08:04→17:57)
[2017-07-13] MEDS: SEVELAMER CARBONATE 0.8 GM PKT PO ×3 (08:04→17:56)
[2017-07-13] MEDS: SEVELAMER CARBONATE 2.4 GM PKT PO ×3 (08:04→17:56)
[2017-07-13] MEDS: CALCIUM ACETATE 667 MG CAP PO ×3 (08:06→17:56)
[2017-07-13] MEDS: INSULIN ASPART [NOVOLOG] 3 ML PEN SC ×8 (08:07→21:31)
[2017-07-13] MEDS: INSULIN DETEMIR [LEVEMIR] 3ML CART SC (08:09)
[2017-07-13] MEDS: HYDROCORTISONE 5 MG TAB PO ×2 (09:13→12:45)
[2017-07-13] MEDS: DULOXETINE 30 MG CAP DR PO (09:14)
[2017-07-13] MEDS: GABAPENTIN 300 MG CAP PO (09:14)
[2017-07-13] MEDS: ONDANSETRON 4 MG INJ IV (18:49)
[2017-07-13] MEDS: NPH, HUMAN INSULIN ISOPHANE 3ML VIAL SC (21:30)
[2017-07-14] MEDS: ACCU-CHEK XX (02:00)
[2017-07-14] MEDS: ONDANSETRON 4 MG INJ IV ×3 (02:22→18:27)
[2017-07-14] MEDS: DIPHENHYDRAMINE 50 MG INJ IV ×4 (04:05→20:32)
[2017-07-14] MEDS: LEVOTHYROXINE 175 MCG TAB PO (05:29)
[2017-07-14] MEDS: DIAZEPAM 5 MG TAB PO ×4 (05:37→18:00)
[2017-07-14] MEDS: SEVELAMER CARBONATE 0.8 GM PKT PO ×3 (08:03→17:28)
[2017-07-14] MEDS: SEVELAMER CARBONATE 2.4 GM PKT PO ×3 (08:03→17:28)
[2017-07-14] MEDS: LANTHANUM 500 MG CHEW PO ×3 (08:03→17:29)
[2017-07-14] MEDS: CALCIUM ACETATE 667 MG CAP PO ×3 (08:04→17:30)
[2017-07-14] MEDS: GABAPENTIN 300 MG CAP PO (08:05)
[2017-07-14] MEDS: DULOXETINE 30 MG CAP DR PO (08:05)
[2017-07-14] MEDS: INSULIN DETEMIR [LEVEMIR] 3ML CART SC ×3 (08:06→21:54)
[2017-07-14] MEDS: INSULIN ASPART [NOVOLOG] 3 ML PEN SC ×10 (08:07→21:54)
[2017-07-14] MEDS: HYDROCORTISONE 5 MG TAB PO ×2 (08:35→12:55)
[2017-07-14] MEDS: HYDROmorphONE 2 MG TAB PO (17:50)
[2017-07-14] MEDS: NPH, HUMAN INSULIN ISOPHANE 3ML VIAL SC (20:00)
[2017-07-15 01:43] LABS: GLUCOSE 400 mg/dl (70-220)
[2017-07-15] MEDS: ACCU-CHEK XX (02:00)
[2017-07-15] MEDS: DIPHENHYDRAMINE 50 MG INJ IV ×3 (02:22→17:30)
[2017-07-15] MEDS: INSULIN DETEMIR [LEVEMIR] 3ML CART SC ×2 (02:32→08:56)
[2017-07-15] MEDS: INSULIN ASPART [NOVOLOG] 3 ML PEN SC ×8 (02:33→21:00)
[2017-07-15] MEDS: LEVOTHYROXINE 175 MCG TAB PO (05:46)
[2017-07-15] MEDS: DIAZEPAM 5 MG TAB PO ×4 (06:00→22:14)
[2017-07-15 06:10] LABS: ADD MAN DIFF? NO
[2017-07-15 06:16] LABS: BASOPHIL # 0.1 10^3/ul (0.0-0.1); BASOPHILS % 0.8 % (0.0-2.0); EOSINOPHILS # 0.4 10^3/ul (0.0-0.5); EOSINOPHILS % 4.8 % (0.0-7.0); HEMATOCRIT 31.4 % (37.0-47.0); HEMOGLOBIN 9.9 g/dl (12.0-16.0); LYMPHOCYTES % 13.1 % (15.0-51.0); MEAN CORPUSCULAR HEMOGLOBIN 34.9 pg (29.0-33.0); MEAN CORPUSCULAR HGB CONC 31.5 g/dl (32.0-37.0); MEAN CORPUSCULAR VOLUME 110.6 fl (82.0-101.0); MEAN PLATELET VOLUME 10.5 fl (7.4-10.4); MONOCYTE # 0.7 10^3/ul (0.3-0.9); MONOCYTES % 9.2 % (0.0-11.0); NEUTROPHIL # 5.4 10^3/ul (1.6-7.5); NEUTROPHILS % 71.4 % (39.0-77.0); PLATELET COUNT 196 10^3/UL (140-415); RED BLOOD COUNT 2.84 10^6/ul (4.20-5.40); RED CELL DISTRIBUTION WIDTH 14.8 % (11.5-14.5)
[2017-07-15 06:16] LABS: WHITE BLOOD COUNT 7.5 10^3/ul (4.8-10.8)
[2017-07-15 07:10] LABS: ANION GAP 18 (8-16); BLOOD UREA NITROGEN 63 mg/dl (7-20); CALCIUM 9.5 mg/dl (8.4-10.2); CARBON DIOXIDE 28 mmol/L (21-31); CHLORIDE 94 mmol/L (97-110); GLUCOSE 184 mg/dl (70-220); SODIUM 135 mmol/L (135-144)
[2017-07-15] MEDS: LANTHANUM 500 MG CHEW PO ×3 (08:54→17:24)
[2017-07-15] MEDS: SEVELAMER CARBONATE 0.8 GM PKT PO ×3 (08:55→17:28)
[2017-07-15] MEDS: GABAPENTIN 300 MG CAP PO (08:55)
[2017-07-15] MEDS: DULOXETINE 30 MG CAP DR PO (08:55)
[2017-07-15] MEDS: CALCIUM ACETATE 667 MG CAP PO ×3 (08:55→17:26)
[2017-07-15] MEDS: SEVELAMER CARBONATE 2.4 GM PKT PO ×3 (08:55→17:28)
[2017-07-15] MEDS: HYDROCORTISONE 5 MG TAB PO ×3 (09:35→20:25)
[2017-07-15] MEDS: ONDANSETRON 4 MG INJ IV ×2 (09:39→17:34)
[2017-07-15 10:13] LABS: FREE T3 2.96 pg/ml (2.77-5.27)
[2017-07-15] MEDS: EPOETIN 10000 UNITS/1 ML INJ (ESRD) SC (17:36)
[2017-07-15] MEDS: NPH, HUMAN INSULIN ISOPHANE 3ML VIAL SC (20:21)
[2017-07-15] MEDS: GABAPENTIN 400 MG CAP PO (20:25)
[2017-07-16] MEDS: DIPHENHYDRAMINE 50 MG INJ IV ×4 (00:09→21:51)
[2017-07-16] MEDS: ACCU-CHEK XX (02:00)
[2017-07-16] MEDS: ONDANSETRON 4 MG INJ IV ×3 (05:28→19:57)
[2017-07-16] MEDS: LEVOTHYROXINE 175 MCG TAB PO (05:30)
[2017-07-16] MEDS: DIAZEPAM 5 MG TAB PO ×3 (06:26→22:37)
[2017-07-16] MEDS: SEVELAMER CARBONATE 0.8 GM PKT PO ×3 (08:09→17:38)
[2017-07-16] MEDS: SEVELAMER CARBONATE 2.4 GM PKT PO ×3 (08:09→17:38)
[2017-07-16] MEDS: CALCIUM ACETATE 667 MG CAP PO ×3 (08:10→17:38)
[2017-07-16] MEDS: DULOXETINE 30 MG CAP DR PO (08:10)
[2017-07-16] MEDS: HYDROCORTISONE 5 MG TAB PO ×3 (08:10→20:44)
[2017-07-16] MEDS: LANTHANUM 500 MG CHEW PO ×3 (08:10→17:38)
[2017-07-16] MEDS: INSULIN ASPART [NOVOLOG] 3 ML PEN SC ×7 (08:13→20:43)
[2017-07-16] MEDS: INSULIN DETEMIR [LEVEMIR] 3ML CART SC (08:14)
[2017-07-16] MEDS: NPH, HUMAN INSULIN ISOPHANE 3ML VIAL SC (20:42)
[2017-07-16] MEDS: GABAPENTIN 400 MG CAP PO (20:44)
[2017-07-17] MEDS: DIPHENHYDRAMINE 50 MG INJ IV ×4 (02:30→20:04)
[2017-07-17] MEDS: ACCU-CHEK XX (02:33)
[2017-07-17 06:11] LABS: ADD MAN DIFF? NO
[2017-07-17 06:17] LABS: WHITE BLOOD COUNT 6.4 10^3/ul (4.8-10.8)
[2017-07-17 06:17] LABS: BASOPHIL # 0.1 10^3/ul (0.0-0.1); BASOPHILS % 1.1 % (0.0-2.0); EOSINOPHILS # 0.3 10^3/ul (0.0-0.5); EOSINOPHILS % 5.3 % (0.0-7.0); HEMATOCRIT 32.1 % (37.0-47.0); HEMOGLOBIN 10.2 g/dl (12.0-16.0); LYMPHOCYTES # 0.8 10^3/ul (0.8-2.9); MEAN CORPUSCULAR HEMOGLOBIN 35.5 pg (29.0-33.0); MEAN CORPUSCULAR HGB CONC 31.8 g/dl (32.0-37.0); MEAN CORPUSCULAR VOLUME 111.8 fl (82.0-101.0); MEAN PLATELET VOLUME 10.4 fl (7.4-10.4); MONOCYTE # 0.5 10^3/ul (0.3-0.9); MONOCYTES % 8.4 % (0.0-11.0); NEUTROPHIL # 4.6 10^3/ul (1.6-7.5); NEUTROPHILS % 71.7 % (39.0-77.0); PLATELET COUNT 207 10^3/UL (140-415); RED BLOOD COUNT 2.87 10^6/ul (4.20-5.40); RED CELL DISTRIBUTION WIDTH 14.8 % (11.5-14.5)
[2017-07-17] MEDS: LEVOTHYROXINE 175 MCG TAB PO (06:18)
[2017-07-17] MEDS: DIAZEPAM 5 MG TAB PO ×3 (06:18→22:17)
[2017-07-17 06:56] LABS: ANION GAP 20 (8-16); BLOOD UREA NITROGEN 59 mg/dl (7-20); CALCIUM 9.7 mg/dl (8.4-10.2); CARBON DIOXIDE 28 mmol/L (21-31); CHLORIDE 97 mmol/L (97-110); GLUCOSE 82 mg/dl (70-220); MAGNESIUM 2.5 mg/dl (1.7-2.5); PHOSPHORUS 5.6 mg/dl (2.5-4.9); SODIUM 139 mmol/L (135-144)
[2017-07-17 07:09] LABS: CREATININE 17.94 mg/dl (0.44-1.00)
[2017-07-17 07:10] LABS: POTASSIUM 5.5 mmol/L (3.5-5.1)
[2017-07-17] MEDS: INSULIN ASPART [NOVOLOG] 3 ML PEN SC ×7 (08:00→21:11)
[2017-07-17] MEDS: INSULIN DETEMIR [LEVEMIR] 3ML CART SC (08:29)
[2017-07-17] MEDS: LANTHANUM 500 MG CHEW PO ×3 (08:32→17:14)
[2017-07-17] MEDS: SEVELAMER CARBONATE 0.8 GM PKT PO ×3 (08:39→17:14)
[2017-07-17] MEDS: SEVELAMER CARBONATE 2.4 GM PKT PO ×3 (08:39→17:14)
[2017-07-17] MEDS: CALCIUM ACETATE 667 MG CAP PO ×3 (08:39→17:14)
[2017-07-17] MEDS: HYDROCORTISONE 5 MG TAB PO ×3 (08:39→20:04)
[2017-07-17] MEDS: HYDROmorphONE 2 MG TAB PO ×2 (08:40→14:51)
[2017-07-17] MEDS: DULOXETINE 20 MG CAP DR PO (08:52)
[2017-07-17] MEDS ORDERED: DULOXETINE 30 MG CAP DR PO (09:00)
[2017-07-17] MEDS: ONDANSETRON 4 MG INJ IV (13:30)
[2017-07-17] MEDS: EPOETIN 10000 UNITS/1 ML INJ (ESRD) SC (17:16)
[2017-07-17] MEDS ORDERED: GABAPENTIN 300 MG CAP (19:58)
[2017-07-17] MEDS: GABAPENTIN 300 MG CAP PO (20:04)
[2017-07-17] MEDS: NPH, HUMAN INSULIN ISOPHANE 3ML VIAL SC (20:04)
[2017-07-18] MEDS: DIPHENHYDRAMINE 50 MG INJ IV ×5 (00:14→23:29)
[2017-07-18] MEDS: ACCU-CHEK XX (01:56)
[2017-07-18] MEDS: HYDROmorphONE 2 MG TAB PO ×2 (02:36→08:40)
[2017-07-18] MEDS: LEVOTHYROXINE 175 MCG TAB PO (06:15)
[2017-07-18] MEDS: DIAZEPAM 5 MG TAB PO ×3 (06:15→21:14)
[2017-07-18 07:15] LABS: ANION GAP 21 (8-16); BLOOD UREA NITROGEN 60 mg/dl (7-20); CALCIUM 9.9 mg/dl (8.4-10.2); CARBON DIOXIDE 26 mmol/L (21-31); CHLORIDE 98 mmol/L (97-110); GLUCOSE 74 mg/dl (70-220); MAGNESIUM 2.6 mg/dl (1.7-2.5); PHOSPHORUS 5.6 mg/dl (2.5-4.9); POTASSIUM 5.2 mmol/L (3.5-5.1); SODIUM 140 mmol/L (135-144)
[2017-07-18 07:23] LABS: CREATININE 17.99 mg/dl (0.44-1.00)
[2017-07-18] MEDS: INSULIN ASPART [NOVOLOG] 3 ML PEN SC ×8 (08:00→21:00)
[2017-07-18] MEDS: INSULIN DETEMIR [LEVEMIR] 3ML CART SC ×2 (08:00→10:29)
[2017-07-18] MEDS: CALCIUM ACETATE 667 MG CAP PO ×3 (08:24→17:27)
[2017-07-18] MEDS: SEVELAMER CARBONATE 2.4 GM PKT PO ×3 (08:25→17:27)
[2017-07-18] MEDS: HYDROCORTISONE 5 MG TAB PO ×3 (08:25→21:14)
[2017-07-18] MEDS: LANTHANUM 500 MG CHEW PO ×3 (08:25→17:27)
[2017-07-18] MEDS: SEVELAMER CARBONATE 0.8 GM PKT PO ×3 (08:26→17:27)
[2017-07-18] MEDS: DULOXETINE 20 MG CAP DR PO (08:26)
[2017-07-18] MEDS: GLUCOSE GEL 15 GRAM TUBE BUCCAL (08:47)
[2017-07-18] MEDS: NPH, HUMAN INSULIN ISOPHANE 3ML VIAL SC (10:33)
[2017-07-18] MEDS: GABAPENTIN 300 MG CAP PO (21:14)
[2017-07-19] MEDS: ACCU-CHEK XX (01:27)
[2017-07-19] MEDS: LEVOTHYROXINE 175 MCG TAB PO (04:57)
[2017-07-19] MEDS: DIPHENHYDRAMINE 50 MG INJ IV ×4 (04:57→23:52)
[2017-07-19] MEDS: DIAZEPAM 5 MG TAB PO ×3 (04:57→21:01)
[2017-07-19 06:21] LABS: ADD MAN DIFF? NO
[2017-07-19 06:28] LABS: BASOPHIL # 0.1 10^3/ul (0.0-0.1); EOSINOPHILS # 0.4 10^3/ul (0.0-0.5); EOSINOPHILS % 4.5 % (0.0-7.0); HEMOGLOBIN 10.4 g/dl (12.0-16.0); LYMPHOCYTES % 12.3 % (15.0-51.0); MEAN CORPUSCULAR HEMOGLOBIN 34.3 pg (29.0-33.0); MEAN CORPUSCULAR HGB CONC 30.6 g/dl (32.0-37.0); MEAN CORPUSCULAR VOLUME 112.2 fl (82.0-101.0); MEAN PLATELET VOLUME 10.4 fl (7.4-10.4); MONOCYTE # 0.6 10^3/ul (0.3-0.9); MONOCYTES % 7.5 % (0.0-11.0); NEUTROPHIL # 5.7 10^3/ul (1.6-7.5); NEUTROPHILS % 74.2 % (39.0-77.0); PLATELET COUNT 221 10^3/UL (140-415); RED BLOOD COUNT 3.03 10^6/ul (4.20-5.40)
[2017-07-19 06:28] LABS: WHITE BLOOD COUNT 7.7 10^3/ul (4.8-10.8)
[2017-07-19 07:07] LABS: ANION GAP 21 (8-16); BLOOD UREA NITROGEN 62 mg/dl (7-20); CALCIUM 9.6 mg/dl (8.4-10.2); CARBON DIOXIDE 29 mmol/L (21-31); CHLORIDE 95 mmol/L (97-110); GLUCOSE 104 mg/dl (70-220); POTASSIUM 5.5 mmol/L (3.5-5.1); SODIUM 139 mmol/L (135-144)
[2017-07-19 07:17] LABS: CREATININE 17.89 mg/dl (0.44-1.00)
[2017-07-19] MEDS: LANTHANUM 500 MG CHEW PO ×3 (07:39→17:14)
[2017-07-19] MEDS: SEVELAMER CARBONATE 0.8 GM PKT PO ×3 (07:39→17:14)
[2017-07-19] MEDS: SEVELAMER CARBONATE 2.4 GM PKT PO ×3 (07:39→17:14)
[2017-07-19] MEDS: CALCIUM ACETATE 667 MG CAP PO ×3 (07:40→17:14)
[2017-07-19] MEDS: INSULIN ASPART [NOVOLOG] 3 ML PEN SC ×7 (07:44→21:00)
[2017-07-19] MEDS: INSULIN DETEMIR [LEVEMIR] 3ML CART SC (07:49)
[2017-07-19] MEDS: NPH, HUMAN INSULIN ISOPHANE 3ML VIAL SC (08:41)
[2017-07-19] MEDS: HYDROCORTISONE 5 MG TAB PO ×3 (08:45→21:01)
[2017-07-19] MEDS: DULOXETINE 20 MG CAP DR PO (08:45)
[2017-07-19] MEDS: EPOETIN 10000 UNITS/1 ML INJ (ESRD) SC (17:13)
[2017-07-19] MEDS: ONDANSETRON 4 MG INJ IV (19:35)
[2017-07-19] MEDS: GABAPENTIN 300 MG CAP PO (21:01)
[2017-07-20] MEDS: ACCU-CHEK XX (02:00)
[2017-07-20] MEDS: HYDROmorphONE 2 MG TAB PO (03:06)
[2017-07-20] MEDS: LEVOTHYROXINE 175 MCG TAB PO (05:23)
[2017-07-20] MEDS: DIAZEPAM 5 MG TAB PO ×3 (05:23→21:05)
[2017-07-20] MEDS: DIPHENHYDRAMINE 50 MG INJ IV ×3 (05:24→17:36)
[2017-07-20 07:14] LABS: ANION GAP 25 (8-16); BLOOD UREA NITROGEN 72 mg/dl (7-20); CALCIUM 9.5 mg/dl (8.4-10.2); CARBON DIOXIDE 20 mmol/L (21-31); CHLORIDE 100 mmol/L (97-110); GLUCOSE 57 mg/dl (70-220); MAGNESIUM 2.6 mg/dl (1.7-2.5); PHOSPHORUS 4.9 mg/dl (2.5-4.9); SODIUM 138 mmol/L (135-144)
[2017-07-20 07:26] LABS: POTASSIUM 6.5 mmol/L (3.5-5.1)
[2017-07-20] MEDS: INSULIN ASPART [NOVOLOG] 3 ML PEN SC ×7 (08:00→21:04)
[2017-07-20] MEDS: INSULIN DETEMIR [LEVEMIR] 3ML CART SC (08:21)
[2017-07-20] MEDS: CALCIUM ACETATE 667 MG CAP PO ×3 (08:23→17:37)
[2017-07-20] MEDS: LANTHANUM 500 MG CHEW PO ×3 (08:23→17:36)
[2017-07-20] MEDS: SEVELAMER CARBONATE 0.8 GM PKT PO ×3 (08:23→17:36)
[2017-07-20] MEDS: DULOXETINE 20 MG CAP DR PO (08:24)
[2017-07-20] MEDS: HYDROCORTISONE 5 MG TAB PO ×3 (08:24→21:04)
[2017-07-20] MEDS: SEVELAMER CARBONATE 2.4 GM PKT PO ×3 (08:30→17:36)
[2017-07-20] MEDS: NA POLYST SULFON 15 GM/60 ML BTL PO (08:30)
[2017-07-20] MEDS: NPH, HUMAN INSULIN ISOPHANE 3ML VIAL SC (09:00)
[2017-07-20 15:31] LABS: ANION GAP 21 (8-16); BLOOD UREA NITROGEN 66 mg/dl (7-20); CALCIUM 9.3 mg/dl (8.4-10.2); CARBON DIOXIDE 30 mmol/L (21-31); CHLORIDE 93 mmol/L (97-110); GLUCOSE 325 mg/dl (70-220); POTASSIUM 5.6 mmol/L (3.5-5.1); SODIUM 138 mmol/L (135-144)
[2017-07-20] MEDS: GABAPENTIN 300 MG CAP PO (21:04)
[2017-07-21] MEDS: DIPHENHYDRAMINE 50 MG INJ IV ×5 (00:26→23:49)
[2017-07-21] MEDS: ACCU-CHEK XX (01:14)
[2017-07-21] MEDS: ONDANSETRON 4 MG INJ IV (03:18)
[2017-07-21] MEDS: HYDROmorphONE 2 MG TAB PO (03:18)
[2017-07-21] MEDS: LEVOTHYROXINE 175 MCG TAB PO (05:40)
[2017-07-21] MEDS: DIAZEPAM 5 MG TAB PO ×3 (05:40→22:42)
[2017-07-21 05:51] LABS: ADD MAN DIFF? NO
[2017-07-21 06:05] LABS: BASOPHIL # 0.1 10^3/ul (0.0-0.1); BASOPHILS % 1.2 % (0.0-2.0); EOSINOPHILS # 0.3 10^3/ul (0.0-0.5); EOSINOPHILS % 3.9 % (0.0-7.0); HEMATOCRIT 36.9 % (37.0-47.0); HEMOGLOBIN 11.3 g/dl (12.0-16.0); LYMPHOCYTES % 12.5 % (15.0-51.0); MEAN CORPUSCULAR HEMOGLOBIN 34.2 pg (29.0-33.0); MEAN CORPUSCULAR HGB CONC 30.6 g/dl (32.0-37.0); MEAN CORPUSCULAR VOLUME 111.8 fl (82.0-101.0); MEAN PLATELET VOLUME 10.7 fl (7.4-10.4); MONOCYTE # 0.5 10^3/ul (0.3-0.9); MONOCYTES % 6.4 % (0.0-11.0); NEUTROPHIL # 6.1 10^3/ul (1.6-7.5); NEUTROPHILS % 75.5 % (39.0-77.0); PLATELET COUNT 272 10^3/UL (140-415); RED CELL DISTRIBUTION WIDTH 14.6 % (11.5-14.5)
[2017-07-21 06:05] LABS: WHITE BLOOD COUNT 8.1 10^3/ul (4.8-10.8)
[2017-07-21 07:06] LABS: ANION GAP 24 (8-16); BLOOD UREA NITROGEN 69 mg/dl (7-20); CALCIUM 9.7 mg/dl (8.4-10.2); CARBON DIOXIDE 29 mmol/L (21-31); CHLORIDE 92 mmol/L (97-110); GLUCOSE 102 mg/dl (70-220); MAGNESIUM 2.5 mg/dl (1.7-2.5); PHOSPHORUS 5.1 mg/dl (2.5-4.9); POTASSIUM 5.3 mmol/L (3.5-5.1); SODIUM 140 mmol/L (135-144)
[2017-07-21] MEDS: SEVELAMER CARBONATE 0.8 GM PKT PO ×3 (07:33→17:07)
[2017-07-21] MEDS: SEVELAMER CARBONATE 2.4 GM PKT PO ×3 (07:33→17:07)
[2017-07-21] MEDS: CALCIUM ACETATE 667 MG CAP PO ×3 (07:34→17:07)
[2017-07-21] MEDS: LANTHANUM 500 MG CHEW PO ×3 (07:34→17:07)
[2017-07-21] MEDS: INSULIN ASPART [NOVOLOG] 3 ML PEN SC ×7 (07:37→20:14)
[2017-07-21] MEDS: INSULIN DETEMIR [LEVEMIR] 3ML CART SC (07:47)
[2017-07-21 08:05] LABS: CREATININE 17.72 mg/dl (0.44-1.00)
[2017-07-21] MEDS: NPH, HUMAN INSULIN ISOPHANE 3ML VIAL SC ×2 (09:00→20:13)
[2017-07-21] MEDS: HYDROCORTISONE 5 MG TAB PO ×3 (09:12→20:14)
[2017-07-21] MEDS: DULOXETINE 20 MG CAP DR PO (09:12)
[2017-07-21] MEDS: GABAPENTIN 300 MG CAP PO (20:14)
[2017-07-22] MEDS: ACCU-CHEK XX (02:00)
[2017-07-22] MEDS: HYDROmorphONE 2 MG TAB PO (04:07)
[2017-07-22] MEDS: DIPHENHYDRAMINE 50 MG INJ IV ×4 (04:07→20:46)
[2017-07-22] MEDS: LEVOTHYROXINE 175 MCG TAB PO (06:17)
[2017-07-22] MEDS: DIAZEPAM 5 MG TAB PO ×3 (06:17→22:00)
[2017-07-22 06:43] LABS: ADD MAN DIFF? NO
[2017-07-22 06:48] LABS: BASOPHIL # 0.1 10^3/ul (0.0-0.1); EOSINOPHILS # 0.3 10^3/ul (0.0-0.5); EOSINOPHILS % 4.2 % (0.0-7.0); HEMATOCRIT 33.6 % (37.0-47.0); HEMOGLOBIN 10.7 g/dl (12.0-16.0); LYMPHOCYTES # 0.8 10^3/ul (0.8-2.9); LYMPHOCYTES % 9.8 % (15.0-51.0); MEAN CORPUSCULAR HEMOGLOBIN 35.3 pg (29.0-33.0); MEAN CORPUSCULAR HGB CONC 31.8 g/dl (32.0-37.0); MEAN CORPUSCULAR VOLUME 110.9 fl (82.0-101.0); MEAN PLATELET VOLUME 10.5 fl (7.4-10.4); MONOCYTE # 0.5 10^3/ul (0.3-0.9); MONOCYTES % 6.4 % (0.0-11.0); NEUTROPHILS % 77.8 % (39.0-77.0); PLATELET COUNT 249 10^3/UL (140-415); RED BLOOD COUNT 3.03 10^6/ul (4.20-5.40); RED CELL DISTRIBUTION WIDTH 14.8 % (11.5-14.5)
[2017-07-22 06:48] LABS: WHITE BLOOD COUNT 7.7 10^3/ul (4.8-10.8)
[2017-07-22 08:00] LABS: ANION GAP 23 (8-16); BLOOD UREA NITROGEN 68 mg/dl (7-20); CALCIUM 9.7 mg/dl (8.4-10.2); CARBON DIOXIDE 28 mmol/L (21-31); CHLORIDE 94 mmol/L (97-110); GLUCOSE 232 mg/dl (70-220); MAGNESIUM 2.4 mg/dl (1.7-2.5); PHOSPHORUS 4.8 mg/dl (2.5-4.9); SODIUM 140 mmol/L (135-144)
[2017-07-22 08:31] LABS: POTASSIUM 5.3 mmol/L (3.5-5.1)
[2017-07-22] MEDS: INSULIN ASPART [NOVOLOG] 3 ML PEN SC ×7 (08:42→20:52)
[2017-07-22] MEDS: INSULIN DETEMIR [LEVEMIR] 3ML CART SC (08:44)
[2017-07-22] MEDS: SEVELAMER CARBONATE 0.8 GM PKT PO ×3 (08:45→16:57)
[2017-07-22] MEDS: SEVELAMER CARBONATE 2.4 GM PKT PO ×3 (08:45→16:57)
[2017-07-22] MEDS: LANTHANUM 500 MG CHEW PO ×3 (08:45→16:57)
[2017-07-22] MEDS: CALCIUM ACETATE 667 MG CAP PO ×3 (08:45→16:56)
[2017-07-22] MEDS: HYDROCORTISONE 5 MG TAB PO ×3 (08:48→20:45)
[2017-07-22] MEDS: DULOXETINE 20 MG CAP DR PO (08:48)
[2017-07-22] MEDS: EPOETIN 10000 UNITS/1 ML INJ (ESRD) SC (16:58)
[2017-07-22] MEDS: NPH, HUMAN INSULIN ISOPHANE 3ML VIAL SC (20:05)
[2017-07-22] MEDS: GABAPENTIN 300 MG CAP PO (20:45)
[2017-07-23] MEDS: ACCU-CHEK XX (01:55)
[2017-07-23] MEDS: DIPHENHYDRAMINE 50 MG INJ IV ×5 (03:51→21:23)
[2017-07-23 05:15] LABS: ADD MAN DIFF? NO
[2017-07-23 05:23] LABS: WHITE BLOOD COUNT 7.9 10^3/ul (4.8-10.8)
[2017-07-23 05:23] LABS: BASOPHIL # 0.1 10^3/ul (0.0-0.1); BASOPHILS % 1.1 % (0.0-2.0); EOSINOPHILS # 0.3 10^3/ul (0.0-0.5); EOSINOPHILS % 3.9 % (0.0-7.0); HEMATOCRIT 37.6 % (37.0-47.0); HEMOGLOBIN 11.5 g/dl (12.0-16.0); LYMPHOCYTES # 0.9 10^3/ul (0.8-2.9); LYMPHOCYTES % 11.5 % (15.0-51.0); MEAN CORPUSCULAR HEMOGLOBIN 34.3 pg (29.0-33.0); MEAN CORPUSCULAR HGB CONC 30.6 g/dl (32.0-37.0); MEAN CORPUSCULAR VOLUME 112.2 fl (82.0-101.0); MEAN PLATELET VOLUME 10.4 fl (7.4-10.4); MONOCYTE # 0.5 10^3/ul (0.3-0.9); MONOCYTES % 6.5 % (0.0-11.0); NEUTROPHILS % 76.7 % (39.0-77.0); PLATELET COUNT 267 10^3/UL (140-415); RED BLOOD COUNT 3.35 10^6/ul (4.20-5.40); RED CELL DISTRIBUTION WIDTH 14.6 % (11.5-14.5)
[2017-07-23] MEDS: DIAZEPAM 5 MG TAB PO ×3 (05:27→22:00)
[2017-07-23] MEDS: LEVOTHYROXINE 175 MCG TAB PO (05:27)
[2017-07-23 05:52] LABS: ANION GAP 22 (8-16); BLOOD UREA NITROGEN 65 mg/dl (7-20); CALCIUM 10.4 mg/dl (8.4-10.2); CARBON DIOXIDE 31 mmol/L (21-31); CHLORIDE 96 mmol/L (97-110); GLUCOSE 164 mg/dl (70-220); POTASSIUM 4.7 mmol/L (3.5-5.1); SODIUM 144 mmol/L (135-144)
[2017-07-23 06:10] LABS: CREATININE 16.88 mg/dl (0.44-1.00)
[2017-07-23] MEDS: DULOXETINE 20 MG CAP DR PO (08:26)
[2017-07-23] MEDS: CALCIUM ACETATE 667 MG CAP PO ×3 (08:26→16:38)
[2017-07-23] MEDS: LANTHANUM 500 MG CHEW PO ×3 (08:26→16:39)
[2017-07-23] MEDS: SEVELAMER CARBONATE 2.4 GM PKT PO ×3 (08:27→16:39)
[2017-07-23] MEDS: SEVELAMER CARBONATE 0.8 GM PKT PO ×3 (08:27→16:39)
[2017-07-23] MEDS: HYDROCORTISONE 5 MG TAB PO ×3 (08:27→20:02)
[2017-07-23] MEDS: INSULIN ASPART [NOVOLOG] 3 ML PEN SC ×7 (08:28→21:00)
[2017-07-23] MEDS: INSULIN DETEMIR [LEVEMIR] 3ML CART SC (08:29)
[2017-07-23] MEDS: NPH, HUMAN INSULIN ISOPHANE 3ML VIAL SC (20:02)
[2017-07-23] MEDS: GABAPENTIN 300 MG CAP PO (20:02)
[2017-07-24] MEDS: ACCU-CHEK XX (01:28)
[2017-07-24] MEDS: DIPHENHYDRAMINE 50 MG INJ IV ×3 (02:29→16:58)
[2017-07-24] MEDS: LEVOTHYROXINE 175 MCG TAB PO (05:44)
[2017-07-24] MEDS: DIAZEPAM 5 MG TAB PO ×2 (05:44→14:00)
[2017-07-24 05:57] LABS: ADD MAN DIFF? NO
[2017-07-24 06:03] LABS: BASOPHIL # 0.1 10^3/ul (0.0-0.1); BASOPHILS % 1.2 % (0.0-2.0); EOSINOPHILS # 0.3 10^3/ul (0.0-0.5); EOSINOPHILS % 4.3 % (0.0-7.0); HEMATOCRIT 33.4 % (37.0-47.0); HEMOGLOBIN 10.6 g/dl (12.0-16.0); LYMPHOCYTES # 0.9 10^3/ul (0.8-2.9); LYMPHOCYTES % 12.3 % (15.0-51.0); MEAN CORPUSCULAR HEMOGLOBIN 35.2 pg (29.0-33.0); MEAN CORPUSCULAR HGB CONC 31.7 g/dl (32.0-37.0); MEAN PLATELET VOLUME 10.7 fl (7.4-10.4); MONOCYTE # 0.5 10^3/ul (0.3-0.9); MONOCYTES % 6.6 % (0.0-11.0); NEUTROPHIL # 5.7 10^3/ul (1.6-7.5); NEUTROPHILS % 74.9 % (39.0-77.0); PLATELET COUNT 231 10^3/UL (140-415); RED BLOOD COUNT 3.01 10^6/ul (4.20-5.40); RED CELL DISTRIBUTION WIDTH 14.7 % (11.5-14.5)
[2017-07-24 06:03] LABS: WHITE BLOOD COUNT 7.6 10^3/ul (4.8-10.8)
[2017-07-24 06:28] LABS: ANION GAP 23 (8-16); BLOOD UREA NITROGEN 67 mg/dl (7-20); CARBON DIOXIDE 29 mmol/L (21-31); CHLORIDE 95 mmol/L (97-110); GLUCOSE 149 mg/dl (70-220); POTASSIUM 4.9 mmol/L (3.5-5.1); SODIUM 142 mmol/L (135-144)
[2017-07-24] MEDS: HYDROmorphONE 2 MG TAB PO (06:41)
[2017-07-24 07:14] LABS: CREATININE 17.03 mg/dl (0.44-1.00)
[2017-07-24] MEDS: INSULIN ASPART [NOVOLOG] 3 ML PEN SC ×6 (08:00→17:13)
[2017-07-24] MEDS: LANTHANUM 500 MG CHEW PO ×3 (08:43→16:58)
[2017-07-24] MEDS: SEVELAMER CARBONATE 2.4 GM PKT PO ×3 (08:43→16:58)
[2017-07-24] MEDS: SEVELAMER CARBONATE 0.8 GM PKT PO ×3 (08:43→16:58)
[2017-07-24] MEDS: DULOXETINE 20 MG CAP DR PO (08:43)
[2017-07-24] MEDS: ONDANSETRON 4 MG INJ IV (08:44)
[2017-07-24] MEDS: CALCIUM ACETATE 667 MG CAP PO ×3 (08:44→16:58)
[2017-07-24] MEDS: HYDROCORTISONE 5 MG TAB PO ×2 (08:44→13:02)
[2017-07-24] MEDS: INSULIN DETEMIR [LEVEMIR] 3ML CART SC (08:45)
[2017-07-24] MEDS: EPOETIN 10000 UNITS/1 ML INJ (ESRD) SC (17:01)
== END 2017-07-24 19:10 | disposition home or self-care (01) | DRG 919 ==
LOC: MS4 06-21 09:46 → PP2 07-01 19:22 → E/R 23:11
PROC: 3E1M39Z Irrigation of Peritoneal Cavity using Dialysate, Percutaneous Approach (ICD-10-PCS; principal; 2017-06-16)
DX: T85.71XA Infection and inflammatory reaction due to peritoneal dialysis catheter, initial encounter (principal); N18.6 End stage renal disease; R65.10 Systemic inflammatory response syndrome (SIRS) of non-infectious origin without acute organ dysfunction; E10.21 Type 1 diabetes mellitus with diabetic nephropathy; E10.65 Type 1 diabetes mellitus with hyperglycemia; L03.114 Cellulitis of left upper limb; G25.82 Stiff-man syndrome; E27.40 Unspecified adrenocortical insufficiency; Z68.41 Body mass index [BMI] 40.0-44.9, adult; L03.311 Cellulitis of abdominal wall; F33.1 Major depressive disorder, recurrent, moderate; E10.22 Type 1 diabetes mellitus with diabetic chronic kidney disease; Z99.2 Dependence on renal dialysis; Z79.4 Long term (current) use of insulin; G89.4 Chronic pain syndrome; E03.9 Hypothyroidism, unspecified; G40.909 Epilepsy, unspecified, not intractable, without status epilepticus; D63.8 Anemia in other chronic diseases classified elsewhere; M25.552 Pain in left hip; M79.604 Pain in right leg; E66.9 Obesity, unspecified; L29.9 Pruritus, unspecified; E87.5 Hyperkalemia; G47.30 Sleep apnea, unspecified
CPT/HCPCS: 72170; 73550; 74000; 80048; 80202; 82010; 82550; 82947; 82962; 83036; 83605; 83735; 84100; 84439; 84481; 85025; 87040; 87070; 87102; 87116; 90945; 93005; 94660; 96361; 96374; 97110; 97116; 97162; 97164; 97530; 99285-25; G0378

== ENCOUNTER 2017-07-29 20:54 | Emergency (ER) | payer OTHER ==
[2017-07-29] MEDS: morphine 4 MG/ML VIAL IV (23:54)
[2017-07-29] MEDS: ONDANSETRON 4 MG INJ IV (23:54)
[2017-07-30 00:22] LABS: ADD MAN DIFF? NO
[2017-07-30 00:24] LABS: WHITE BLOOD COUNT 9.6 10^3/ul (4.8-10.8)
[2017-07-30 00:25] LABS: BASOPHIL # 0.1 10^3/ul (0.0-0.1); BASOPHILS % 0.9 % (0.0-2.0); EOSINOPHILS # 0.6 10^3/ul (0.0-0.5); EOSINOPHILS % 5.7 % (0.0-7.0); HEMATOCRIT 38.7 % (37.0-47.0); HEMOGLOBIN 12.3 g/dl (12.0-16.0); LYMPHOCYTES % 9.9 % (15.0-51.0); MEAN CORPUSCULAR HEMOGLOBIN 34.6 pg (29.0-33.0); MEAN CORPUSCULAR HGB CONC 31.8 g/dl (32.0-37.0); MEAN PLATELET VOLUME 10.7 fl (7.4-10.4); MONOCYTE # 0.6 10^3/ul (0.3-0.9); MONOCYTES % 5.9 % (0.0-11.0); NEUTROPHIL # 7.4 10^3/ul (1.6-7.5); NEUTROPHILS % 77.1 % (39.0-77.0); PLATELET COUNT 271 10^3/UL (140-415); RED BLOOD COUNT 3.55 10^6/ul (4.20-5.40)
[2017-07-30 01:27] LABS: INR 0.93; PROTIME 12.6 Sec (11.9-14.9)
[2017-07-30 01:28] LABS: PARTIAL THROMBOPLASTIN TIME 27.9 Sec (25.0-35.0)
[2017-07-30 01:57] LABS: ALANINE AMINOTRANSFERASE 27 IU/L (13-69); ALBUMIN 4.1 g/dl (3.3-4.9); ALBUMIN/GLOBULIN RATIO 1.13; ALKALINE PHOSPHATASE 346 IU/L (42-121); ANION GAP 23 (8-16); ASPARTATE AMINO TRANSFERASE 29 IU/L (15-46); BLOOD UREA NITROGEN 55 mg/dl (7-20); CALCIUM 9.1 mg/dl (8.4-10.2); CARBON DIOXIDE 21 mmol/L (21-31); CHLORIDE 101 mmol/L (97-110); GLUCOSE 254 mg/dl (70-220); LIPASE 25 U/L (23-300); POTASSIUM 4.7 mmol/L (3.5-5.1); SODIUM 140 mmol/L (135-144); TOTAL PROTEIN 7.7 g/dl (6.1-8.1)
[2017-07-30 02:09] LABS: CREATININE 15.67 mg/dl (0.44-1.00)
== END 2017-07-30 02:40 | disposition home or self-care (01) ==
LOC: FTE 07-30 02:40
DX: S79.912A Unspecified injury of left hip, initial encounter (principal); E11.9 Type 2 diabetes mellitus without complications; R10.9 Unspecified abdominal pain; W18.39XA Other fall on same level, initial encounter; Y92.9 Unspecified place or not applicable; Z79.4 Long term (current) use of insulin
CPT/HCPCS: 36415; 71100; 73510; 73550; 74176; 80053; 83690; 85025; 85610; 85730; 96374; 96375; 99285-25

== ENCOUNTER 2017-09-06 18:53 | Inpatient (IN) | payer OTHER ==
[2017-09-06] MEDS: HYDROmorphONE 1 MG/ML SYG IM (20:01)
[2017-09-06] MEDS: SOD CHLORIDE 0.9% 500 ML IV (21:03)
[2017-09-06 21:04] LABS: ADD MAN DIFF? NO
[2017-09-06 21:09] LABS: BASOPHIL # 0.1 10^3/ul (0.0-0.1); BASOPHILS % 0.4 % (0.0-2.0); EOSINOPHILS # 0.1 10^3/ul (0.0-0.5); HEMATOCRIT 37.1 % (37.0-47.0); HEMOGLOBIN 11.5 g/dl (12.0-16.0); LYMPHOCYTES # 0.8 10^3/ul (0.8-2.9); LYMPHOCYTES % 5.5 % (15.0-51.0); MEAN CORPUSCULAR VOLUME 109.8 fl (82.0-101.0); MEAN PLATELET VOLUME 9.9 fl (7.4-10.4); MONOCYTE # 0.5 10^3/ul (0.3-0.9); MONOCYTES % 3.3 % (0.0-11.0); NEUTROPHIL # 12.3 10^3/ul (1.6-7.5); NEUTROPHILS % 89.2 % (39.0-77.0); NUCLEATED RED BLOOD CELLS% 0.1 /100WBC (0.0-0.0); PLATELET COUNT 220 10^3/UL (140-415); RED BLOOD COUNT 3.38 10^6/ul (4.20-5.40); RED CELL DISTRIBUTION WIDTH 15.6 % (11.5-14.5)
[2017-09-06 21:09] LABS: WHITE BLOOD COUNT 13.8 10^3/ul (4.8-10.8)
[2017-09-06 21:27] LABS: ALANINE AMINOTRANSFERASE 27 IU/L (13-69); ALBUMIN 4.4 g/dl (3.3-4.9); ALBUMIN/GLOBULIN RATIO 1.22; ALKALINE PHOSPHATASE 389 IU/L (42-121); ANION GAP 30 (8-16); ASPARTATE AMINO TRANSFERASE 29 IU/L (15-46); BLOOD UREA NITROGEN 48 mg/dl (7-20); CALCIUM 7.5 mg/dl (8.4-10.2); CARBON DIOXIDE 19 mmol/L (21-31); CHLORIDE 90 mmol/L (97-110); LIPASE 15 U/L (23-300); POTASSIUM 5.5 mmol/L (3.5-5.1); SODIUM 133 mmol/L (135-144)
[2017-09-06 21:33] LABS: GLUCOSE 456 mg/dl (70-220)
[2017-09-06] MEDS: INSULIN LISPRO 100 UNIT/ML VIAL SC (21:33)
[2017-09-06 21:36] LABS: CREATININE 17.46 mg/dl (0.44-1.00)
[2017-09-06] MEDS: DEXTROSE 50% 50 ML SYRINGE IV (23:48)
[2017-09-06] MEDS: CA CHLORIDE 10% 10 ML SYRINGE IV (23:48)
[2017-09-06] MEDS: INSULIN REGULAR, HUMAN 100 UNIT/1 ML 3ML VIAL IVP (23:49)
[2017-09-07] MEDS: DEXTROSE 50% 50 ML SYRINGE IV ×3 (02:40→14:07)
[2017-09-07] MEDS: DIPHENHYDRAMINE 50 MG CAP PO (04:23)
[2017-09-07] MEDS ORDERED: GLUCOSE GEL 15 GRAM TUBE PO ×2 (04:30)
[2017-09-07] MEDS ORDERED: GLUCOSE GEL 15 GRAM TUBE BUCCAL (04:30)
[2017-09-07] MEDS ORDERED: GLUCAGON 1 MG INJ IM (04:30)
[2017-09-07] MEDS: LEVOTHYROXINE 175 MCG TAB PO (06:38)
[2017-09-07 07:41] LABS: GLUCOSE 111 mg/dl (70-220)
[2017-09-07] MEDS: INSULIN ASPART [NOVOLOG] 3 ML PEN SC ×5 (07:55→20:35)
[2017-09-07] MEDS: SEVELAMER 800 MG TAB PO ×3 (09:11→17:23)
[2017-09-07] MEDS: DULOXETINE 20 MG CAP DR PO (09:12)
[2017-09-07] MEDS: HYDROCORTISONE 5 MG TAB PO (09:13)
[2017-09-07] MEDS: INSULIN DETEMIR [LEVEMIR] 3ML CART SC (09:14)
[2017-09-07] MEDS: NPH, HUMAN INSULIN ISOPHANE 3ML VIAL SC ×2 (09:15→20:37)
[2017-09-07] MEDS: SOD CHLORIDE 0.9% 250 ML IV (09:16)
[2017-09-07] MEDS ORDERED: HYDROCODONE/APAP (5/325) TAB PO (11:00)
[2017-09-07] MEDS ORDERED: SEVELAMER CARBONATE 2.4 GM PKT PO (11:50)
[2017-09-07] MEDS: CALCIUM ACETATE 667 MG CAP PO ×2 (12:30→17:22)
[2017-09-07] MEDS: DIPHENHYDRAMINE 50 MG INJ IV ×3 (12:34→20:42)
[2017-09-07] MEDS: DIAZEPAM 5 MG TAB PO ×2 (13:36→22:08)
[2017-09-07] MEDS: ONDANSETRON 4 MG INJ IV (13:36)
[2017-09-07 15:04] LABS: ANION GAP 20 (8-16); BLOOD UREA NITROGEN 54 mg/dl (7-20); CALCIUM 7.6 mg/dl (8.4-10.2); CARBON DIOXIDE 23 mmol/L (21-31); CHLORIDE 94 mmol/L (97-110); GLUCOSE 165 mg/dl (70-220); SODIUM 132 mmol/L (135-144)
[2017-09-07 15:19] LABS: CREATININE 17.42 mg/dl (0.44-1.00)
[2017-09-07] MEDS: HYDROCODONE/APAP (5/325) TAB PO ×2 (16:50→20:39)
[2017-09-08] MEDS: HYDROCODONE/APAP (5/325) TAB PO ×3 (02:36→19:58)
[2017-09-08] MEDS: LEVOTHYROXINE 175 MCG TAB PO ×2 (06:21→06:22)
[2017-09-08] MEDS: DIPHENHYDRAMINE 50 MG INJ IV ×3 (06:22→19:58)
[2017-09-08] MEDS: DIAZEPAM 5 MG TAB PO ×3 (06:22→22:24)
[2017-09-08 06:47] LABS: ADD MAN DIFF? NO
[2017-09-08 06:51] LABS: WHITE BLOOD COUNT 8.5 10^3/ul (4.8-10.8)
[2017-09-08 06:51] LABS: BASOPHIL # 0.1 10^3/ul (0.0-0.1); BASOPHILS % 0.9 % (0.0-2.0); EOSINOPHILS # 0.3 10^3/ul (0.0-0.5); HEMATOCRIT 32.8 % (37.0-47.0); HEMOGLOBIN 10.4 g/dl (12.0-16.0); LYMPHOCYTES % 12.2 % (15.0-51.0); MEAN CORPUSCULAR HEMOGLOBIN 34.3 pg (29.0-33.0); MEAN CORPUSCULAR HGB CONC 31.7 g/dl (32.0-37.0); MEAN CORPUSCULAR VOLUME 108.3 fl (82.0-101.0); MEAN PLATELET VOLUME 9.9 fl (7.4-10.4); MONOCYTE # 0.5 10^3/ul (0.3-0.9); MONOCYTES % 5.5 % (0.0-11.0); NEUTROPHIL # 6.5 10^3/ul (1.6-7.5); NEUTROPHILS % 77.2 % (39.0-77.0); NUCLEATED RED BLOOD CELLS% 0.4 /100WBC (0.0-0.0); PLATELET COUNT 188 10^3/UL (140-415); RED BLOOD COUNT 3.03 10^6/ul (4.20-5.40); RED CELL DISTRIBUTION WIDTH 15.8 % (11.5-14.5)
[2017-09-08 07:21] LABS: BLOOD UREA NITROGEN 49 mg/dl (7-20); CARBON DIOXIDE 24 mmol/L (21-31); CHLORIDE 97 mmol/L (97-110); GLUCOSE 166 mg/dl (70-220); SODIUM 137 mmol/L (135-144)
[2017-09-08 07:29] LABS: FREE THYROXINE INDEX (Calc) 1.32 ug/ml (0.65-3.89); T3 UPTAKE 28.7 % (23.5-40.5); T4 (THYROXINE) 4.6 ug/dl (5.5-11.0)
[2017-09-08] MEDS ORDERED: INSULIN DETEMIR [LEVEMIR] 3ML CART SC (08:00)
[2017-09-08] MEDS: INSULIN ASPART [NOVOLOG] 3 ML PEN SC ×6 (08:00→20:06)
[2017-09-08] MEDS: NPH, HUMAN INSULIN ISOPHANE 3ML VIAL SC ×2 (08:12→20:05)
[2017-09-08] MEDS: INSULIN DETEMIR [LEVEMIR] 3ML CART SC (08:12)
[2017-09-08] MEDS: CALCIUM ACETATE 667 MG CAP PO ×3 (08:13→17:28)
[2017-09-08] MEDS: SEVELAMER 800 MG TAB PO ×3 (08:13→17:29)
[2017-09-08] MEDS: HYDROCORTISONE 5 MG TAB PO (08:13)
[2017-09-08] MEDS: DULOXETINE 20 MG CAP DR PO (08:14)
[2017-09-08 08:58] LABS: ANION GAP 21 (8-16)
[2017-09-08 08:59] LABS: POTASSIUM 4.9 mmol/L (3.5-5.1)
[2017-09-08] MEDS ORDERED: HYDROCORTISONE 5 MG TAB PO (09:00)
[2017-09-08] MEDS ORDERED: NPH, HUMAN INSULIN ISOPHANE 3ML VIAL SC (09:00)
[2017-09-08] MEDS: ONDANSETRON 4 MG INJ IV (09:53)
[2017-09-08 13:54] LABS: FLD MN% 61.6 %; FLD PMN% 38.4 %; FLD RBC 0 /uL; FLD WBC 13 /cmm
[2017-09-08 13:58] LABS: FLD CLARITY CLEAR; FLD COLOR COLORLESS
[2017-09-08 13:58] LABS: FLD TYPE PERITONEAL
[2017-09-08] MEDS: PIPER-TAZO 2.25 GM (PMX) 50 ML IVPB ×2 (14:41→22:24)
[2017-09-08] MEDS: DIPHENHYDRAMINE 50 MG CAP PO (16:32)
[2017-09-08] MEDS ORDERED: LORAZEPAM 2 MG INJ IV (19:30)
[2017-09-09] MEDS: DIPHENHYDRAMINE 50 MG INJ IV ×4 (01:28→23:03)
[2017-09-09] MEDS: PIPER-TAZO 2.25 GM (PMX) 50 ML IVPB ×3 (05:56→21:06)
[2017-09-09] MEDS: DIAZEPAM 5 MG TAB PO ×3 (06:00→21:38)
[2017-09-09] MEDS: LEVOTHYROXINE 175 MCG TAB PO (06:38)
[2017-09-09 07:01] LABS: ADD MAN DIFF? NO
[2017-09-09 07:05] LABS: BASOPHIL # 0.1 10^3/ul (0.0-0.1); BASOPHILS % 0.9 % (0.0-2.0); EOSINOPHILS # 0.3 10^3/ul (0.0-0.5); EOSINOPHILS % 3.1 % (0.0-7.0); HEMATOCRIT 31.6 % (37.0-47.0); HEMOGLOBIN 9.9 g/dl (12.0-16.0); LYMPHOCYTES # 0.9 10^3/ul (0.8-2.9); LYMPHOCYTES % 9.6 % (15.0-51.0); MEAN CORPUSCULAR HEMOGLOBIN 34.5 pg (29.0-33.0); MEAN CORPUSCULAR HGB CONC 31.3 g/dl (32.0-37.0); MEAN CORPUSCULAR VOLUME 110.1 fl (82.0-101.0); MONOCYTE # 0.4 10^3/ul (0.3-0.9); NEUTROPHIL # 7.6 10^3/ul (1.6-7.5); NEUTROPHILS % 81.6 % (39.0-77.0); NUCLEATED RED BLOOD CELLS% 0.3 /100WBC (0.0-0.0); PLATELET COUNT 172 10^3/UL (140-415); RED BLOOD COUNT 2.87 10^6/ul (4.20-5.40); RED CELL DISTRIBUTION WIDTH 15.8 % (11.5-14.5)
[2017-09-09 07:05] LABS: WHITE BLOOD COUNT 9.3 10^3/ul (4.8-10.8)
[2017-09-09 07:28] LABS: ANION GAP 21 (8-16); BLOOD UREA NITROGEN 50 mg/dl (7-20); CALCIUM 7.7 mg/dl (8.4-10.2); CARBON DIOXIDE 23 mmol/L (21-31); CHLORIDE 97 mmol/L (97-110); GLUCOSE 220 mg/dl (70-220); SODIUM 136 mmol/L (135-144)
[2017-09-09 07:32] LABS: POTASSIUM 5.2 mmol/L (3.5-5.1)
[2017-09-09] MEDS: CALCIUM ACETATE 667 MG CAP PO ×3 (08:38→17:08)
[2017-09-09] MEDS: DULOXETINE 20 MG CAP DR PO (08:39)
[2017-09-09] MEDS: HYDROCORTISONE 5 MG TAB PO (08:39)
[2017-09-09] MEDS: SEVELAMER 800 MG TAB PO ×3 (08:40→17:07)
[2017-09-09] MEDS: INSULIN ASPART [NOVOLOG] 3 ML PEN SC ×6 (08:55→20:46)
[2017-09-09] MEDS: NPH, HUMAN INSULIN ISOPHANE 3ML VIAL SC ×2 (08:56→20:43)
[2017-09-09] MEDS: INSULIN DETEMIR [LEVEMIR] 3ML CART SC (08:57)
[2017-09-09] MEDS: HYDROCODONE/APAP (5/325) TAB PO ×2 (09:01→17:08)
[2017-09-09 16:40] LABS: HEPATITIS B SURFACE ANTIGEN NEGATIVE (NEGATIVE)
[2017-09-09] MEDS: ONDANSETRON 4 MG INJ IV (20:41)
[2017-09-10] MEDS: ONDANSETRON 4 MG INJ IV (02:44)
[2017-09-10] MEDS: HYDROCODONE/APAP (5/325) TAB PO ×3 (02:44→17:14)
[2017-09-10] MEDS: DIAZEPAM 5 MG TAB PO ×3 (05:08→22:38)
[2017-09-10] MEDS: DIPHENHYDRAMINE 50 MG INJ IV ×3 (05:08→19:48)
[2017-09-10] MEDS: PIPER-TAZO 2.25 GM (PMX) 50 ML IVPB ×3 (05:08→22:00)
[2017-09-10 06:41] LABS: ADD MAN DIFF? NO
[2017-09-10 06:50] LABS: BASOPHIL # 0.1 10^3/ul (0.0-0.1); BASOPHILS % 0.7 % (0.0-2.0); EOSINOPHILS # 0.3 10^3/ul (0.0-0.5); EOSINOPHILS % 2.8 % (0.0-7.0); HEMATOCRIT 30.9 % (37.0-47.0); HEMOGLOBIN 9.8 g/dl (12.0-16.0); LYMPHOCYTES # 0.9 10^3/ul (0.8-2.9); LYMPHOCYTES % 10.6 % (15.0-51.0); MEAN CORPUSCULAR HEMOGLOBIN 34.6 pg (29.0-33.0); MEAN CORPUSCULAR HGB CONC 31.7 g/dl (32.0-37.0); MEAN CORPUSCULAR VOLUME 109.2 fl (82.0-101.0); MEAN PLATELET VOLUME 9.2 fl (7.4-10.4); MONOCYTE # 0.3 10^3/ul (0.3-0.9); MONOCYTES % 3.8 % (0.0-11.0); NEUTROPHIL # 7.2 10^3/ul (1.6-7.5); NEUTROPHILS % 81.2 % (39.0-77.0); NUCLEATED RED BLOOD CELLS # 0.1 10^3/ul (0.0-0.0); NUCLEATED RED BLOOD CELLS% 0.6 /100WBC (0.0-0.0); PLATELET COUNT 168 10^3/UL (140-415); RED BLOOD COUNT 2.83 10^6/ul (4.20-5.40); RED CELL DISTRIBUTION WIDTH 15.9 % (11.5-14.5)
[2017-09-10 06:50] LABS: WHITE BLOOD COUNT 8.9 10^3/ul (4.8-10.8)
[2017-09-10 07:15] LABS: ANION GAP 22 (8-16); BLOOD UREA NITROGEN 48 mg/dl (7-20); CALCIUM 7.7 mg/dl (8.4-10.2); CARBON DIOXIDE 22 mmol/L (21-31); CHLORIDE 99 mmol/L (97-110); GLUCOSE 203 mg/dl (70-220); SODIUM 138 mmol/L (135-144)
[2017-09-10 07:44] LABS: CREATININE 16.68 mg/dl (0.44-1.00)
[2017-09-10] MEDS: DULOXETINE 20 MG CAP DR PO (08:30)
[2017-09-10] MEDS: CALCIUM ACETATE 667 MG CAP PO ×3 (08:31→17:15)
[2017-09-10] MEDS: HYDROCORTISONE 5 MG TAB PO (08:31)
[2017-09-10] MEDS: SEVELAMER 800 MG TAB PO ×3 (08:31→17:15)
[2017-09-10] MEDS: LEVOTHYROXINE 175 MCG TAB PO (08:31)
[2017-09-10] MEDS: NPH, HUMAN INSULIN ISOPHANE 3ML VIAL SC ×2 (08:34→20:00)
[2017-09-10] MEDS: INSULIN ASPART [NOVOLOG] 3 ML PEN SC ×6 (08:36→21:00)
[2017-09-10] MEDS: INSULIN DETEMIR [LEVEMIR] 3ML CART SC (08:40)
[2017-09-11] MEDS: DIPHENHYDRAMINE 50 MG INJ IV ×4 (01:51→22:02)
[2017-09-11] MEDS: HYDROCODONE/APAP (5/325) TAB PO (05:20)
[2017-09-11] MEDS: DIAZEPAM 5 MG TAB PO ×3 (05:20→22:00)
[2017-09-11] MEDS: PIPER-TAZO 2.25 GM (PMX) 50 ML IVPB ×3 (05:21→22:01)
[2017-09-11] MEDS: ONDANSETRON 4 MG INJ IV ×2 (05:21→09:55)
[2017-09-11] MEDS: LEVOTHYROXINE 175 MCG TAB PO (06:18)
[2017-09-11 07:08] LABS: ADD MAN DIFF? NO
[2017-09-11 07:10] LABS: BASOPHIL # 0.1 10^3/ul (0.0-0.1); BASOPHILS % 0.6 % (0.0-2.0); EOSINOPHILS # 0.2 10^3/ul (0.0-0.5); EOSINOPHILS % 2.6 % (0.0-7.0); HEMATOCRIT 30.9 % (37.0-47.0); HEMOGLOBIN 9.8 g/dl (12.0-16.0); LYMPHOCYTES % 10.9 % (15.0-51.0); MEAN CORPUSCULAR HEMOGLOBIN 34.5 pg (29.0-33.0); MEAN CORPUSCULAR HGB CONC 31.7 g/dl (32.0-37.0); MEAN CORPUSCULAR VOLUME 108.8 fl (82.0-101.0); MEAN PLATELET VOLUME 9.9 fl (7.4-10.4); MONOCYTE # 0.4 10^3/ul (0.3-0.9); NEUTROPHIL # 7.2 10^3/ul (1.6-7.5); NEUTROPHILS % 80.6 % (39.0-77.0); NUCLEATED RED BLOOD CELLS # 0.1 10^3/ul (0.0-0.0); NUCLEATED RED BLOOD CELLS% 0.6 /100WBC (0.0-0.0); PLATELET COUNT 186 10^3/UL (140-415); RED BLOOD COUNT 2.84 10^6/ul (4.20-5.40); RED CELL DISTRIBUTION WIDTH 16.2 % (11.5-14.5)
[2017-09-11 07:10] LABS: WHITE BLOOD COUNT 8.9 10^3/ul (4.8-10.8)
[2017-09-11 07:37] LABS: ANION GAP 22 (8-16); BLOOD UREA NITROGEN 48 mg/dl (7-20); CALCIUM 7.8 mg/dl (8.4-10.2); CARBON DIOXIDE 20 mmol/L (21-31); CHLORIDE 99 mmol/L (97-110); GLUCOSE 147 mg/dl (70-220); POTASSIUM 4.9 mmol/L (3.5-5.1); SODIUM 136 mmol/L (135-144)
[2017-09-11 07:45] LABS: CREATININE 16.56 mg/dl (0.44-1.00)
[2017-09-11] MEDS: INSULIN ASPART [NOVOLOG] 3 ML PEN SC ×6 (07:55→21:00)
[2017-09-11] MEDS: INSULIN DETEMIR [LEVEMIR] 3ML CART SC (08:00)
[2017-09-11] MEDS: HYDROCORTISONE 5 MG TAB PO (08:44)
[2017-09-11] MEDS: DULOXETINE 20 MG CAP DR PO (08:45)
[2017-09-11] MEDS: SEVELAMER 800 MG TAB PO ×3 (08:45→17:57)
[2017-09-11] MEDS: CALCIUM ACETATE 667 MG CAP PO ×3 (08:45→17:57)
[2017-09-11] MEDS: NPH, HUMAN INSULIN ISOPHANE 3ML VIAL SC ×2 (09:04→22:17)
[2017-09-11] MEDS: LORATADINE 10 MG TAB PO (22:02)
[2017-09-12] MEDS: PIPER-TAZO 2.25 GM (PMX) 50 ML IVPB ×2 (05:18→14:37)
[2017-09-12] MEDS: DIAZEPAM 5 MG TAB PO ×3 (05:23→21:49)
[2017-09-12] MEDS: LEVOTHYROXINE 175 MCG TAB PO (05:23)
[2017-09-12] MEDS: IBUPROFEN 600 MG TAB PO (05:24)
[2017-09-12] MEDS ORDERED: IBUPROFEN 600 MG TAB PO (06:00)
[2017-09-12 06:35] LABS: ADD MAN DIFF? NO
[2017-09-12 06:41] LABS: WHITE BLOOD COUNT 8.5 10^3/ul (4.8-10.8)
[2017-09-12 06:41] LABS: BASOPHIL # 0.1 10^3/ul (0.0-0.1); BASOPHILS % 0.7 % (0.0-2.0); EOSINOPHILS # 0.2 10^3/ul (0.0-0.5); EOSINOPHILS % 2.8 % (0.0-7.0); HEMATOCRIT 31.4 % (37.0-47.0); LYMPHOCYTES % 11.2 % (15.0-51.0); MEAN CORPUSCULAR HEMOGLOBIN 34.5 pg (29.0-33.0); MEAN CORPUSCULAR HGB CONC 31.8 g/dl (32.0-37.0); MEAN CORPUSCULAR VOLUME 108.3 fl (82.0-101.0); MEAN PLATELET VOLUME 9.8 fl (7.4-10.4); MONOCYTE # 0.4 10^3/ul (0.3-0.9); MONOCYTES % 4.1 % (0.0-11.0); NEUTROPHIL # 6.8 10^3/ul (1.6-7.5); NEUTROPHILS % 79.8 % (39.0-77.0); NUCLEATED RED BLOOD CELLS # 0.1 10^3/ul (0.0-0.0); NUCLEATED RED BLOOD CELLS% 0.6 /100WBC (0.0-0.0); PLATELET COUNT 173 10^3/UL (140-415); RED CELL DISTRIBUTION WIDTH 15.9 % (11.5-14.5)
[2017-09-12 07:11] LABS: ANION GAP 21 (8-16); BLOOD UREA NITROGEN 50 mg/dl (7-20); CALCIUM 8.4 mg/dl (8.4-10.2); CARBON DIOXIDE 20 mmol/L (21-31); CHLORIDE 99 mmol/L (97-110); GLUCOSE 239 mg/dl (70-220); POTASSIUM 5.1 mmol/L (3.5-5.1); SODIUM 135 mmol/L (135-144)
[2017-09-12] MEDS: morphine 2 MG INJ IV (08:33)
[2017-09-12] MEDS: LORATADINE 10 MG TAB PO (08:40)
[2017-09-12] MEDS: SEVELAMER 800 MG TAB PO ×3 (08:42→17:13)
[2017-09-12] MEDS: DULOXETINE 20 MG CAP DR PO (08:43)
[2017-09-12] MEDS: HYDROCORTISONE 5 MG TAB PO (08:45)
[2017-09-12] MEDS: CALCIUM ACETATE 667 MG CAP PO ×3 (08:45→17:12)
[2017-09-12] MEDS: INSULIN ASPART [NOVOLOG] 3 ML PEN SC ×6 (08:52→20:24)
[2017-09-12] MEDS: NPH, HUMAN INSULIN ISOPHANE 3ML VIAL SC ×2 (08:55→20:28)
[2017-09-12] MEDS: INSULIN DETEMIR [LEVEMIR] 3ML CART SC (08:55)
[2017-09-12] MEDS: MIDODRINE 2.5 MG TAB PO ×3 (10:28→21:49)
[2017-09-12] MEDS: DIPHENHYDRAMINE 50 MG INJ IV ×3 (11:51→22:35)
[2017-09-12] MEDS: ONDANSETRON 4 MG INJ IV ×2 (18:28→22:35)
[2017-09-12] MEDS: CEPHALEXIN 250 MG CAP PO (21:49)
[2017-09-13 01:21] LABS: TROPONIN-I 0.035 ng/ml (0.00-0.12)
[2017-09-13] MEDS: morphine 2 MG INJ IV (04:50)
[2017-09-13] MEDS: CEPHALEXIN 250 MG CAP PO ×3 (06:14→21:57)
[2017-09-13] MEDS: LEVOTHYROXINE 175 MCG TAB PO (06:14)
[2017-09-13] MEDS: DIAZEPAM 5 MG TAB PO ×3 (06:14→21:57)
[2017-09-13] MEDS: MIDODRINE 2.5 MG TAB PO ×2 (06:16→13:54)
[2017-09-13] MEDS: DIPHENHYDRAMINE 50 MG INJ IV ×3 (06:23→20:16)
[2017-09-13 06:59] LABS: ADD MAN DIFF? NO
[2017-09-13 07:06] LABS: BASOPHIL # 0.1 10^3/ul (0.0-0.1); EOSINOPHILS # 0.2 10^3/ul (0.0-0.5); EOSINOPHILS % 2.7 % (0.0-7.0); HEMOGLOBIN 10.3 g/dl (12.0-16.0); LYMPHOCYTES # 1.1 10^3/ul (0.8-2.9); MEAN CORPUSCULAR HEMOGLOBIN 34.8 pg (29.0-33.0); MEAN CORPUSCULAR HGB CONC 32.2 g/dl (32.0-37.0); MEAN CORPUSCULAR VOLUME 108.1 fl (82.0-101.0); MEAN PLATELET VOLUME 9.7 fl (7.4-10.4); MONOCYTE # 0.4 10^3/ul (0.3-0.9); MONOCYTES % 4.6 % (0.0-11.0); NEUTROPHIL # 6.8 10^3/ul (1.6-7.5); NEUTROPHILS % 77.6 % (39.0-77.0); NUCLEATED RED BLOOD CELLS% 0.5 /100WBC (0.0-0.0); PLATELET COUNT 197 10^3/UL (140-415); RED BLOOD COUNT 2.96 10^6/ul (4.20-5.40); RED CELL DISTRIBUTION WIDTH 16.2 % (11.5-14.5)
[2017-09-13 07:06] LABS: WHITE BLOOD COUNT 8.7 10^3/ul (4.8-10.8)
[2017-09-13 07:36] LABS: TROPONIN-I 0.031 ng/ml (0.00-0.12)
[2017-09-13 07:51] LABS: ANION GAP 23 (8-16); BLOOD UREA NITROGEN 48 mg/dl (7-20); CALCIUM 8.5 mg/dl (8.4-10.2); CARBON DIOXIDE 20 mmol/L (21-31); CHLORIDE 99 mmol/L (97-110); GLUCOSE 149 mg/dl (70-220); POTASSIUM 4.9 mmol/L (3.5-5.1); SODIUM 137 mmol/L (135-144)
[2017-09-13] MEDS: INSULIN ASPART [NOVOLOG] 3 ML PEN SC ×6 (07:55→20:29)
[2017-09-13 07:59] LABS: CREATININE 16.46 mg/dl (0.44-1.00)
[2017-09-13] MEDS: HYDROCORTISONE 5 MG TAB PO (08:55)
[2017-09-13] MEDS: NPH, HUMAN INSULIN ISOPHANE 3ML VIAL SC ×2 (08:56→20:29)
[2017-09-13] MEDS: CALCIUM ACETATE 667 MG CAP PO ×3 (08:56→18:05)
[2017-09-13] MEDS: SEVELAMER 800 MG TAB PO ×3 (08:56→18:05)
[2017-09-13] MEDS: INSULIN DETEMIR [LEVEMIR] 3ML CART SC (08:56)
[2017-09-13] MEDS: DULOXETINE 20 MG CAP DR PO (08:57)
[2017-09-13] MEDS: LORATADINE 10 MG TAB PO (08:57)
[2017-09-13] MEDS: ONDANSETRON 4 MG INJ IV ×2 (11:11→20:16)
[2017-09-13 12:14] LABS: TROPONIN-I 0.023 ng/ml (0.00-0.12)
[2017-09-13] MEDS: MIDODRINE 5 MG TAB PO (21:58)
[2017-09-14] MEDS: ONDANSETRON 4 MG INJ IV ×2 (00:08→08:40)
[2017-09-14] MEDS: DIPHENHYDRAMINE 50 MG INJ IV ×2 (00:08→20:55)
[2017-09-14] MEDS: IBUPROFEN 600 MG TAB PO (04:28)
[2017-09-14] MEDS: LEVOTHYROXINE 175 MCG TAB PO (06:17)
[2017-09-14] MEDS: CEPHALEXIN 250 MG CAP PO ×3 (06:17→20:57)
[2017-09-14] MEDS: DIAZEPAM 5 MG TAB PO ×3 (06:17→20:57)
[2017-09-14] MEDS: MIDODRINE 5 MG TAB PO ×3 (06:18→20:56)
[2017-09-14 06:52] LABS: ADD MAN DIFF? NO
[2017-09-14 07:13] LABS: WHITE BLOOD COUNT 7.6 10^3/ul (4.8-10.8)
[2017-09-14 07:14] LABS: BASOPHIL # 0.1 10^3/ul (0.0-0.1); BASOPHILS % 0.8 % (0.0-2.0); EOSINOPHILS # 0.3 10^3/ul (0.0-0.5); EOSINOPHILS % 3.6 % (0.0-7.0); HEMATOCRIT 32.1 % (37.0-47.0); LYMPHOCYTES # 0.9 10^3/ul (0.8-2.9); LYMPHOCYTES % 12.2 % (15.0-51.0); MEAN CORPUSCULAR HEMOGLOBIN 34.1 pg (29.0-33.0); MEAN CORPUSCULAR HGB CONC 31.2 g/dl (32.0-37.0); MEAN CORPUSCULAR VOLUME 109.6 fl (82.0-101.0); MEAN PLATELET VOLUME 10.6 fl (7.4-10.4); MONOCYTE # 0.4 10^3/ul (0.3-0.9); NEUTROPHIL # 5.9 10^3/ul (1.6-7.5); NEUTROPHILS % 77.1 % (39.0-77.0); NUCLEATED RED BLOOD CELLS% 0.5 /100WBC (0.0-0.0); PLATELET COUNT 162 10^3/UL (140-415); RED BLOOD COUNT 2.93 10^6/ul (4.20-5.40); RED CELL DISTRIBUTION WIDTH 16.7 % (11.5-14.5)
[2017-09-14 07:20] LABS: POSITIVE DIFF @See below
[2017-09-14 07:24] LABS: ANION GAP 29 (8-16); BLOOD UREA NITROGEN 46 mg/dl (7-20); CALCIUM 8.6 mg/dl (8.4-10.2); CARBON DIOXIDE 19 mmol/L (21-31); CHLORIDE 98 mmol/L (97-110); GLUCOSE 220 mg/dl (70-220); POTASSIUM 5.5 mmol/L (3.5-5.1); SODIUM 140 mmol/L (135-144)
[2017-09-14] MEDS: INSULIN ASPART [NOVOLOG] 3 ML PEN SC ×6 (08:37→20:57)
[2017-09-14] MEDS: INSULIN DETEMIR [LEVEMIR] 3ML CART SC (08:39)
[2017-09-14] MEDS: NPH, HUMAN INSULIN ISOPHANE 3ML VIAL SC ×2 (08:39→21:12)
[2017-09-14] MEDS: SEVELAMER 800 MG TAB PO ×3 (08:40→17:38)
[2017-09-14] MEDS: CALCIUM ACETATE 667 MG CAP PO ×3 (08:41→17:38)
[2017-09-14] MEDS: DULOXETINE 20 MG CAP DR PO (08:41)
[2017-09-14] MEDS: LORATADINE 10 MG TAB PO (08:42)
[2017-09-14] MEDS: HYDROCORTISONE 5 MG TAB PO (10:20)
[2017-09-14] MEDS: DIPHENHYDRAMINE 50 MG CAP PO (11:59)
[2017-09-14] MEDS: NA POLYST SULFON 15 GM/60 ML BTL PR (13:37)
[2017-09-14] MEDS: HYDROmorphONE 2 MG TAB PO (22:49)
[2017-09-15] MEDS: DIPHENHYDRAMINE 50 MG INJ IV ×3 (03:26→21:29)
[2017-09-15] MEDS: DIAZEPAM 5 MG TAB PO ×3 (06:03→21:07)
[2017-09-15] MEDS: LEVOTHYROXINE 175 MCG TAB PO (06:03)
[2017-09-15] MEDS: CEPHALEXIN 250 MG CAP PO ×3 (06:05→20:49)
[2017-09-15] MEDS: MIDODRINE 5 MG TAB PO ×3 (06:05→20:50)
[2017-09-15 07:10] LABS: ADD MAN DIFF? NO; BASOPHIL # 0.1 10^3/ul (0.0-0.1); BASOPHILS % 0.8 % (0.0-2.0); EOSINOPHILS # 0.2 10^3/ul (0.0-0.5); EOSINOPHILS % 2.6 % (0.0-7.0); HEMATOCRIT 33.5 % (37.0-47.0); HEMOGLOBIN 10.7 g/dl (12.0-16.0); LYMPHOCYTES # 0.7 10^3/ul (0.8-2.9); LYMPHOCYTES % 7.7 % (15.0-51.0); MEAN CORPUSCULAR HEMOGLOBIN 34.6 pg (29.0-33.0); MEAN CORPUSCULAR HGB CONC 31.9 g/dl (32.0-37.0); MEAN CORPUSCULAR VOLUME 108.4 fl (82.0-101.0); MONOCYTE # 0.4 10^3/ul (0.3-0.9); NEUTROPHIL # 7.5 10^3/ul (1.6-7.5); NEUTROPHILS % 83.7 % (39.0-77.0); NUCLEATED RED BLOOD CELLS% 0.3 /100WBC (0.0-0.0); PLATELET COUNT 237 10^3/UL (140-415); RED BLOOD COUNT 3.09 10^6/ul (4.20-5.40); RED CELL DISTRIBUTION WIDTH 17.2 % (11.5-14.5)
[2017-09-15 07:35] LABS: ANION GAP 27 (8-16); BLOOD UREA NITROGEN 42 mg/dl (7-20); CALCIUM 8.6 mg/dl (8.4-10.2); CARBON DIOXIDE 20 mmol/L (21-31); CHLORIDE 99 mmol/L (97-110); GLUCOSE 263 mg/dl (70-220); POTASSIUM 4.1 mmol/L (3.5-5.1); SODIUM 142 mmol/L (135-144)
[2017-09-15 07:42] LABS: CREATININE 15.86 mg/dl (0.44-1.00)
[2017-09-15] MEDS: DULOXETINE 20 MG CAP DR PO (08:17)
[2017-09-15] MEDS: CALCIUM ACETATE 667 MG CAP PO ×3 (08:17→17:23)
[2017-09-15] MEDS: LORATADINE 10 MG TAB PO (08:17)
[2017-09-15] MEDS: SEVELAMER 800 MG TAB PO ×3 (08:18→17:23)
[2017-09-15] MEDS: HYDROCORTISONE 5 MG TAB PO (08:18)
[2017-09-15] MEDS: INSULIN DETEMIR [LEVEMIR] 3ML CART SC (08:26)
[2017-09-15] MEDS: INSULIN ASPART [NOVOLOG] 3 ML PEN SC ×6 (08:27→21:12)
[2017-09-15] MEDS: NPH, HUMAN INSULIN ISOPHANE 3ML VIAL SC ×2 (08:28→20:58)
[2017-09-15] MEDS: DEXTROSE 50% 50 ML SYRINGE IV (17:50)
[2017-09-15] MEDS: HYDROmorphONE 2 MG TAB PO (21:08)
[2017-09-16] MEDS: DIPHENHYDRAMINE 50 MG INJ IV ×4 (02:09→22:21)
[2017-09-16] MEDS: DIAZEPAM 5 MG TAB PO ×3 (05:58→22:20)
[2017-09-16] MEDS: CEPHALEXIN 250 MG CAP PO ×3 (06:00→22:20)
[2017-09-16] MEDS: LEVOTHYROXINE 175 MCG TAB PO (06:00)
[2017-09-16] MEDS: MIDODRINE 5 MG TAB PO ×3 (06:01→22:21)
[2017-09-16 07:19] LABS: ADD MAN DIFF? NO
[2017-09-16 07:30] LABS: BASOPHIL # 0.1 10^3/ul (0.0-0.1); BASOPHILS % 0.8 % (0.0-2.0); EOSINOPHILS # 0.3 10^3/ul (0.0-0.5); EOSINOPHILS % 2.7 % (0.0-7.0); HEMATOCRIT 34.1 % (37.0-47.0); HEMOGLOBIN 10.8 g/dl (12.0-16.0); LYMPHOCYTES # 0.9 10^3/ul (0.8-2.9); LYMPHOCYTES % 9.3 % (15.0-51.0); MEAN CORPUSCULAR HGB CONC 31.7 g/dl (32.0-37.0); MEAN CORPUSCULAR VOLUME 110.4 fl (82.0-101.0); MONOCYTE # 0.5 10^3/ul (0.3-0.9); MONOCYTES % 4.6 % (0.0-11.0); NEUTROPHIL # 8.2 10^3/ul (1.6-7.5); NEUTROPHILS % 81.8 % (39.0-77.0); NUCLEATED RED BLOOD CELLS% 0.3 /100WBC (0.0-0.0); PLATELET COUNT 235 10^3/UL (140-415); RED BLOOD COUNT 3.09 10^6/ul (4.20-5.40); RED CELL DISTRIBUTION WIDTH 16.8 % (11.5-14.5)
[2017-09-16] MEDS: SEVELAMER 800 MG TAB PO ×3 (07:55→17:58)
[2017-09-16 08:08] LABS: ANION GAP 24 (8-16); BLOOD UREA NITROGEN 40 mg/dl (7-20); CALCIUM 8.7 mg/dl (8.4-10.2); CARBON DIOXIDE 23 mmol/L (21-31); CHLORIDE 97 mmol/L (97-110); GLUCOSE 310 mg/dl (70-220); POTASSIUM 4.5 mmol/L (3.5-5.1); SODIUM 139 mmol/L (135-144)
[2017-09-16 08:15] LABS: CREATININE 15.76 mg/dl (0.44-1.00)
[2017-09-16] MEDS: DULOXETINE 20 MG CAP DR PO (08:42)
[2017-09-16] MEDS: CALCIUM ACETATE 667 MG CAP PO ×3 (08:43→17:58)
[2017-09-16] MEDS: HYDROCORTISONE 5 MG TAB PO (08:43)
[2017-09-16] MEDS: LORATADINE 10 MG TAB PO (08:43)
[2017-09-16] MEDS: INSULIN DETEMIR [LEVEMIR] 3ML CART SC (08:44)
[2017-09-16] MEDS: INSULIN ASPART [NOVOLOG] 3 ML PEN SC ×6 (08:45→21:47)
[2017-09-16] MEDS: NPH, HUMAN INSULIN ISOPHANE 3ML VIAL SC ×2 (08:58→20:00)
[2017-09-16] MEDS: ONDANSETRON 4 MG INJ IV (11:16)
[2017-09-16] MEDS: HYDROCODONE/APAP (5/325) TAB PO (12:16)
[2017-09-17] MEDS: DIPHENHYDRAMINE 50 MG INJ IV ×3 (03:41→13:13)
[2017-09-17] MEDS: MIDODRINE 5 MG TAB PO ×3 (05:37→21:30)
[2017-09-17] MEDS: DIAZEPAM 5 MG TAB PO ×3 (05:37→21:51)
[2017-09-17] MEDS: CEPHALEXIN 250 MG CAP PO ×3 (05:37→21:29)
[2017-09-17 08:03] LABS: ADD MAN DIFF? NO
[2017-09-17 08:08] LABS: BASOPHIL # 0.1 10^3/ul (0.0-0.1); EOSINOPHILS # 0.3 10^3/ul (0.0-0.5); EOSINOPHILS % 2.5 % (0.0-7.0); HEMATOCRIT 34.7 % (37.0-47.0); LYMPHOCYTES # 1.2 10^3/ul (0.8-2.9); LYMPHOCYTES % 11.6 % (15.0-51.0); MEAN CORPUSCULAR HGB CONC 31.7 g/dl (32.0-37.0); MEAN CORPUSCULAR VOLUME 110.5 fl (82.0-101.0); MEAN PLATELET VOLUME 9.9 fl (7.4-10.4); MONOCYTE # 0.6 10^3/ul (0.3-0.9); MONOCYTES % 5.4 % (0.0-11.0); NEUTROPHILS % 78.9 % (39.0-77.0); NUCLEATED RED BLOOD CELLS% 0.2 /100WBC (0.0-0.0); PLATELET COUNT 269 10^3/UL (140-415); RED BLOOD COUNT 3.14 10^6/ul (4.20-5.40); RED CELL DISTRIBUTION WIDTH 16.8 % (11.5-14.5)
[2017-09-17 08:08] LABS: WHITE BLOOD COUNT 10.1 10^3/ul (4.8-10.8)
[2017-09-17] MEDS: LEVOTHYROXINE 175 MCG TAB PO (08:16)
[2017-09-17] MEDS: SEVELAMER 800 MG TAB PO ×3 (08:16→18:11)
[2017-09-17] MEDS: CALCIUM ACETATE 667 MG CAP PO ×3 (08:16→18:11)
[2017-09-17] MEDS: HYDROCORTISONE 5 MG TAB PO (08:17)
[2017-09-17] MEDS: DULOXETINE 20 MG CAP DR PO (08:17)
[2017-09-17] MEDS: NPH, HUMAN INSULIN ISOPHANE 3ML VIAL SC ×2 (08:31→20:00)
[2017-09-17] MEDS: INSULIN DETEMIR [LEVEMIR] 3ML CART SC (08:31)
[2017-09-17] MEDS: INSULIN ASPART [NOVOLOG] 3 ML PEN SC ×6 (08:32→21:50)
[2017-09-17 08:37] LABS: ANION GAP 25 (8-16); BLOOD UREA NITROGEN 41 mg/dl (7-20); CALCIUM 9.3 mg/dl (8.4-10.2); CARBON DIOXIDE 21 mmol/L (21-31); CHLORIDE 99 mmol/L (97-110); GLUCOSE 196 mg/dl (70-220); POTASSIUM 4.3 mmol/L (3.5-5.1); SODIUM 141 mmol/L (135-144)
[2017-09-17 08:44] LABS: CREATININE 15.69 mg/dl (0.44-1.00)
[2017-09-17] MEDS: LORATADINE 10 MG TAB PO (09:26)
[2017-09-17] MEDS: ONDANSETRON 4 MG INJ IV ×2 (09:28→14:34)
[2017-09-17] MEDS: DEXTROSE 50% 50 ML SYRINGE IV (18:46)
[2017-09-18] MEDS: DIPHENHYDRAMINE 50 MG INJ IV ×4 (00:26→18:55)
[2017-09-18] MEDS: ONDANSETRON 4 MG INJ IV ×2 (00:34→09:01)
[2017-09-18] MEDS: CEPHALEXIN 250 MG CAP PO ×3 (06:11→21:20)
[2017-09-18] MEDS: LEVOTHYROXINE 175 MCG TAB PO (06:11)
[2017-09-18] MEDS: MIDODRINE 5 MG TAB PO ×3 (06:11→21:20)
[2017-09-18] MEDS: DIAZEPAM 5 MG TAB PO ×3 (06:12→21:20)
[2017-09-18] MEDS: INSULIN ASPART [NOVOLOG] 3 ML PEN SC ×6 (07:55→21:00)
[2017-09-18 08:12] LABS: ADD MAN DIFF? NO
[2017-09-18 08:15] LABS: BASOPHIL # 0.1 10^3/ul (0.0-0.1); BASOPHILS % 0.9 % (0.0-2.0); EOSINOPHILS # 0.3 10^3/ul (0.0-0.5); EOSINOPHILS % 3.1 % (0.0-7.0); HEMATOCRIT 34.8 % (37.0-47.0); HEMOGLOBIN 10.9 g/dl (12.0-16.0); LYMPHOCYTES # 0.9 10^3/ul (0.8-2.9); LYMPHOCYTES % 10.3 % (15.0-51.0); MEAN CORPUSCULAR HEMOGLOBIN 34.6 pg (29.0-33.0); MEAN CORPUSCULAR HGB CONC 31.3 g/dl (32.0-37.0); MEAN CORPUSCULAR VOLUME 110.5 fl (82.0-101.0); MEAN PLATELET VOLUME 10.1 fl (7.4-10.4); MONOCYTE # 0.5 10^3/ul (0.3-0.9); MONOCYTES % 5.5 % (0.0-11.0); NEUTROPHIL # 7.2 10^3/ul (1.6-7.5); NEUTROPHILS % 79.5 % (39.0-77.0); PLATELET COUNT 265 10^3/UL (140-415); RED BLOOD COUNT 3.15 10^6/ul (4.20-5.40); RED CELL DISTRIBUTION WIDTH 16.7 % (11.5-14.5)
[2017-09-18] MEDS: SEVELAMER 800 MG TAB PO ×3 (08:23→17:30)
[2017-09-18] MEDS: CALCIUM ACETATE 667 MG CAP PO ×3 (08:25→17:30)
[2017-09-18] MEDS: DULOXETINE 20 MG CAP DR PO (08:26)
[2017-09-18] MEDS: LORATADINE 10 MG TAB PO (08:26)
[2017-09-18] MEDS: HYDROCORTISONE 5 MG TAB PO (08:26)
[2017-09-18] MEDS: NPH, HUMAN INSULIN ISOPHANE 3ML VIAL SC ×2 (08:39→21:36)
[2017-09-18] MEDS: INSULIN DETEMIR [LEVEMIR] 3ML CART SC (08:40)
[2017-09-18 08:48] LABS: ANION GAP 24 (8-16); BLOOD UREA NITROGEN 40 mg/dl (7-20); CALCIUM 9.2 mg/dl (8.4-10.2); CARBON DIOXIDE 20 mmol/L (21-31); CHLORIDE 100 mmol/L (97-110); GLUCOSE 144 mg/dl (70-220); POTASSIUM 4.3 mmol/L (3.5-5.1); SODIUM 140 mmol/L (135-144)
[2017-09-18 09:00] LABS: CREATININE 15.39 mg/dl (0.44-1.00)
[2017-09-18] MEDS: HYDROmorphONE 2 MG TAB PO ×2 (09:01→12:38)
[2017-09-19] MEDS: DIPHENHYDRAMINE 50 MG INJ IV ×4 (02:42→20:53)
[2017-09-19] MEDS: DIAZEPAM 5 MG TAB PO ×3 (06:16→22:00)
[2017-09-19] MEDS: CEPHALEXIN 250 MG CAP PO ×2 (06:16→14:12)
[2017-09-19] MEDS: MIDODRINE 5 MG TAB PO ×3 (06:17→22:21)
[2017-09-19] MEDS: LEVOTHYROXINE 175 MCG TAB PO (06:18)
[2017-09-19] MEDS: DULOXETINE 20 MG CAP DR PO (08:09)
[2017-09-19] MEDS: SEVELAMER 800 MG TAB PO ×3 (08:09→17:29)
[2017-09-19] MEDS: HYDROCORTISONE 5 MG TAB PO ×2 (08:09→22:21)
[2017-09-19] MEDS: CALCIUM ACETATE 667 MG CAP PO ×3 (08:09→17:29)
[2017-09-19] MEDS: LORATADINE 10 MG TAB PO (08:10)
[2017-09-19 08:13] LABS: ANION GAP 26 (8-16); BLOOD UREA NITROGEN 40 mg/dl (7-20); CALCIUM 9.3 mg/dl (8.4-10.2); CARBON DIOXIDE 20 mmol/L (21-31); CHLORIDE 99 mmol/L (97-110); GLUCOSE 236 mg/dl (70-220); POTASSIUM 4.6 mmol/L (3.5-5.1); SODIUM 140 mmol/L (135-144)
[2017-09-19] MEDS: INSULIN ASPART [NOVOLOG] 3 ML PEN SC ×6 (08:14→21:00)
[2017-09-19] MEDS: INSULIN DETEMIR [LEVEMIR] 3ML CART SC (08:15)
[2017-09-19] MEDS: NPH, HUMAN INSULIN ISOPHANE 3ML VIAL SC ×2 (08:15→20:41)
[2017-09-19 08:23] LABS: CREATININE 16.55 mg/dl (0.44-1.00)
[2017-09-19] MEDS: HYDROmorphONE 2 MG TAB PO (08:50)
[2017-09-19] MEDS: ONDANSETRON 4 MG INJ IV (08:51)
[2017-09-19] MEDS: morphine 2 MG INJ IV (16:46)
[2017-09-20] MEDS: morphine 2 MG INJ IV (01:45)
[2017-09-20] MEDS: DIPHENHYDRAMINE 50 MG INJ IV ×2 (03:22→09:02)
[2017-09-20] MEDS: MIDODRINE 5 MG TAB PO ×3 (05:53→21:58)
[2017-09-20] MEDS: DIAZEPAM 5 MG TAB PO ×3 (06:41→21:56)
[2017-09-20] MEDS: LEVOTHYROXINE 175 MCG TAB PO (06:41)
[2017-09-20] MEDS: NPH, HUMAN INSULIN ISOPHANE 3ML VIAL SC ×2 (09:00→20:56)
[2017-09-20] MEDS: INSULIN ASPART [NOVOLOG] 3 ML PEN SC ×7 (09:00→20:55)
[2017-09-20] MEDS: INSULIN DETEMIR [LEVEMIR] 3ML CART SC (09:00)
[2017-09-20] MEDS: LORATADINE 10 MG TAB PO (09:01)
[2017-09-20] MEDS: SEVELAMER 800 MG TAB PO ×3 (09:01→17:12)
[2017-09-20] MEDS: CALCIUM ACETATE 667 MG CAP PO ×3 (09:01→17:12)
[2017-09-20] MEDS: HYDROCORTISONE 5 MG TAB PO ×3 (09:02→20:37)
[2017-09-20] MEDS: DULOXETINE 20 MG CAP DR PO (09:02)
[2017-09-20] MEDS: SOD CHLORIDE 0.9% 250 ML IV (11:10)
[2017-09-20] MEDS: BISACODYL (EC) 5 MG TAB PO (12:24)
[2017-09-20] MEDS: FLUDROCORTISONE 0.1 MG TAB PO (18:29)
[2017-09-20 22:36] LABS: GLUCOSE 600 mg/dl (70-220)
[2017-09-21] MEDS: morphine 2 MG INJ IV (01:07)
[2017-09-21] MEDS: DIPHENHYDRAMINE 50 MG INJ IV ×2 (03:21→10:29)
[2017-09-21] MEDS: DIAZEPAM 5 MG TAB PO ×3 (05:22→22:09)
[2017-09-21] MEDS: MIDODRINE 5 MG TAB PO ×3 (05:50→22:09)
[2017-09-21 06:52] LABS: ANION GAP 27 (8-16); BLOOD UREA NITROGEN 44 mg/dl (7-20); CALCIUM 9.9 mg/dl (8.4-10.2); CARBON DIOXIDE 19 mmol/L (21-31); CHLORIDE 99 mmol/L (97-110); GLUCOSE 399 mg/dl (70-220); SODIUM 140 mmol/L (135-144)
[2017-09-21 06:58] LABS: CREATININE 16.41 mg/dl (0.44-1.00)
[2017-09-21] MEDS: FLUDROCORTISONE 0.1 MG TAB PO (08:42)
[2017-09-21] MEDS: CALCIUM ACETATE 667 MG CAP PO ×3 (08:43→17:06)
[2017-09-21] MEDS: HYDROCORTISONE 5 MG TAB PO ×3 (08:43→20:41)
[2017-09-21] MEDS: LORATADINE 10 MG TAB PO (08:44)
[2017-09-21] MEDS: DULOXETINE 20 MG CAP DR PO (08:44)
[2017-09-21] MEDS: SEVELAMER 800 MG TAB PO ×3 (08:44→17:06)
[2017-09-21] MEDS: INSULIN DETEMIR [LEVEMIR] 3ML CART SC (08:46)
[2017-09-21] MEDS: INSULIN ASPART [NOVOLOG] 3 ML PEN SC ×8 (08:47→20:40)
[2017-09-21] MEDS: LEVOTHYROXINE 175 MCG TAB PO (08:51)
[2017-09-21] MEDS: NPH, HUMAN INSULIN ISOPHANE 3ML VIAL SC ×2 (08:51→20:43)
[2017-09-21] MEDS: ONDANSETRON 4 MG INJ IV (10:10)
[2017-09-21] MEDS: DOCUSATE SODIUM 100 MG CAP PO ×2 (13:37→20:41)
[2017-09-21] MEDS: LACTULOSE 30ML CUP PO (17:40)
[2017-09-22] MEDS: ONDANSETRON 4 MG INJ IV (01:22)
[2017-09-22] MEDS: DIPHENHYDRAMINE 50 MG INJ IV ×5 (01:22→20:11)
[2017-09-22] MEDS: DIAZEPAM 5 MG TAB PO ×3 (06:27→22:00)
[2017-09-22] MEDS: LEVOTHYROXINE 175 MCG TAB PO (06:27)
[2017-09-22] MEDS: MIDODRINE 5 MG TAB PO ×3 (06:28→21:49)
[2017-09-22] MEDS: NPH, HUMAN INSULIN ISOPHANE 3ML VIAL SC ×2 (08:05→20:14)
[2017-09-22] MEDS: INSULIN ASPART [NOVOLOG] 3 ML PEN SC ×7 (08:06→21:00)
[2017-09-22] MEDS: morphine 2 MG INJ IV ×2 (08:09→12:53)
[2017-09-22] MEDS: LACTULOSE 30ML CUP PO (08:09)
[2017-09-22] MEDS: DULOXETINE 20 MG CAP DR PO (08:10)
[2017-09-22] MEDS: SEVELAMER 800 MG TAB PO ×3 (08:10→18:06)
[2017-09-22] MEDS: FLUDROCORTISONE 0.1 MG TAB PO (08:10)
[2017-09-22] MEDS: HYDROCORTISONE 5 MG TAB PO ×3 (08:11→20:10)
[2017-09-22] MEDS: CALCIUM ACETATE 667 MG CAP PO ×3 (08:11→18:06)
[2017-09-22] MEDS: DOCUSATE SODIUM 100 MG CAP PO ×2 (08:11→20:10)
[2017-09-22] MEDS: LORATADINE 10 MG TAB PO (08:11)
[2017-09-22] MEDS: INSULIN DETEMIR [LEVEMIR] 3ML CART SC (08:17)
[2017-09-22] MEDS: NA PHOSPHATE/BIPHOS 133 ML ENEMA PR (14:24)
[2017-09-23] MEDS: DIPHENHYDRAMINE 50 MG INJ IV ×5 (00:13→22:13)
[2017-09-23] MEDS: MIDODRINE 5 MG TAB PO ×3 (05:14→22:09)
[2017-09-23] MEDS: BISACODYL (EC) 5 MG TAB PO (05:14)
[2017-09-23 06:30] LABS: ADD MAN DIFF? NO
[2017-09-23 06:42] LABS: WHITE BLOOD COUNT 9.1 10^3/ul (4.8-10.8)
[2017-09-23 06:42] LABS: BASOPHIL # 0.1 10^3/ul (0.0-0.1); BASOPHILS % 1.5 % (0.0-2.0); EOSINOPHILS # 0.4 10^3/ul (0.0-0.5); EOSINOPHILS % 3.9 % (0.0-7.0); HEMATOCRIT 40.9 % (37.0-47.0); HEMOGLOBIN 12.6 g/dl (12.0-16.0); LYMPHOCYTES # 1.3 10^3/ul (0.8-2.9); LYMPHOCYTES % 14.6 % (15.0-51.0); MEAN CORPUSCULAR HEMOGLOBIN 34.4 pg (29.0-33.0); MEAN CORPUSCULAR HGB CONC 30.8 g/dl (32.0-37.0); MEAN CORPUSCULAR VOLUME 111.7 fl (82.0-101.0); MEAN PLATELET VOLUME 10.8 fl (7.4-10.4); MONOCYTE # 0.7 10^3/ul (0.3-0.9); MONOCYTES % 8.1 % (0.0-11.0); NEUTROPHIL # 6.4 10^3/ul (1.6-7.5); NEUTROPHILS % 70.8 % (39.0-77.0); NUCLEATED RED BLOOD CELLS% 0.2 /100WBC (0.0-0.0); PLATELET COUNT 258 10^3/UL (140-415); RED BLOOD COUNT 3.66 10^6/ul (4.20-5.40); RED CELL DISTRIBUTION WIDTH 15.9 % (11.5-14.5)
[2017-09-23] MEDS: LEVOTHYROXINE 175 MCG TAB PO (06:44)
[2017-09-23] MEDS: DIAZEPAM 5 MG TAB PO ×3 (06:44→22:00)
[2017-09-23 07:04] LABS: ANION GAP 27 (8-16); BLOOD UREA NITROGEN 46 mg/dl (7-20); CALCIUM 9.8 mg/dl (8.4-10.2); CARBON DIOXIDE 17 mmol/L (21-31); CHLORIDE 100 mmol/L (97-110); GLUCOSE 254 mg/dl (70-220); SODIUM 139 mmol/L (135-144)
[2017-09-23 07:17] LABS: CREATININE 16.53 mg/dl (0.44-1.00)
[2017-09-23] MEDS: CALCIUM ACETATE 667 MG CAP PO ×3 (07:53→18:12)
[2017-09-23] MEDS: SEVELAMER 800 MG TAB PO ×3 (07:53→18:12)
[2017-09-23] MEDS: INSULIN DETEMIR [LEVEMIR] 3ML CART SC (07:58)
[2017-09-23] MEDS: NPH, HUMAN INSULIN ISOPHANE 3ML VIAL SC ×2 (07:58→20:10)
[2017-09-23] MEDS: INSULIN ASPART [NOVOLOG] 3 ML PEN SC ×8 (07:59→20:12)
[2017-09-23] MEDS: DULOXETINE 20 MG CAP DR PO (09:06)
[2017-09-23] MEDS: DOCUSATE SODIUM 100 MG CAP PO ×2 (09:06→20:12)
[2017-09-23] MEDS: LORATADINE 10 MG TAB PO (09:06)
[2017-09-23] MEDS: HYDROCORTISONE 5 MG TAB PO ×3 (09:06→20:11)
[2017-09-23] MEDS: LACTULOSE 30ML CUP PO (09:07)
[2017-09-23] MEDS: FLUDROCORTISONE 0.1 MG TAB PO (12:00)
[2017-09-23] MEDS: morphine 2 MG INJ IV (12:15)
[2017-09-23] MEDS: POLYETHYLENE GLYCOL 17 GM PACKET PO ×2 (16:17→20:12)
[2017-09-23] MEDS: IBUPROFEN 600 MG TAB PO (22:56)
[2017-09-24] MEDS: MIDODRINE 5 MG TAB PO ×3 (05:18→22:31)
[2017-09-24] MEDS: DIAZEPAM 5 MG TAB PO ×3 (05:18→22:28)
[2017-09-24 05:47] LABS: ADD MAN DIFF? NO
[2017-09-24 05:53] LABS: WHITE BLOOD COUNT 8.9 10^3/ul (4.8-10.8)
[2017-09-24 05:53] LABS: BASOPHIL # 0.1 10^3/ul (0.0-0.1); BASOPHILS % 1.5 % (0.0-2.0); EOSINOPHILS # 0.2 10^3/ul (0.0-0.5); EOSINOPHILS % 2.7 % (0.0-7.0); HEMATOCRIT 40.1 % (37.0-47.0); HEMOGLOBIN 12.2 g/dl (12.0-16.0); LYMPHOCYTES # 1.2 10^3/ul (0.8-2.9); LYMPHOCYTES % 13.7 % (15.0-51.0); MEAN CORPUSCULAR HEMOGLOBIN 33.5 pg (29.0-33.0); MEAN CORPUSCULAR HGB CONC 30.4 g/dl (32.0-37.0); MEAN CORPUSCULAR VOLUME 110.2 fl (82.0-101.0); MEAN PLATELET VOLUME 10.8 fl (7.4-10.4); MONOCYTE # 0.7 10^3/ul (0.3-0.9); MONOCYTES % 8.2 % (0.0-11.0); NEUTROPHIL # 6.5 10^3/ul (1.6-7.5); NEUTROPHILS % 72.4 % (39.0-77.0); NUCLEATED RED BLOOD CELLS% 0.3 /100WBC (0.0-0.0); PLATELET COUNT 265 10^3/UL (140-415); RED BLOOD COUNT 3.64 10^6/ul (4.20-5.40)
[2017-09-24 06:14] LABS: ANION GAP 25 (8-16); BLOOD UREA NITROGEN 44 mg/dl (7-20); CALCIUM 9.8 mg/dl (8.4-10.2); CARBON DIOXIDE 16 mmol/L (21-31); CHLORIDE 101 mmol/L (97-110); GLUCOSE 245 mg/dl (70-220); POTASSIUM 5.4 mmol/L (3.5-5.1); SODIUM 137 mmol/L (135-144)
[2017-09-24] MEDS: LEVOTHYROXINE 175 MCG TAB PO (06:21)
[2017-09-24 06:40] LABS: CREATININE 16.18 mg/dl (0.44-1.00)
[2017-09-24] MEDS: INSULIN DETEMIR [LEVEMIR] 3ML CART SC (08:24)
[2017-09-24] MEDS: NPH, HUMAN INSULIN ISOPHANE 3ML VIAL SC ×2 (08:25→21:22)
[2017-09-24] MEDS: INSULIN ASPART [NOVOLOG] 3 ML PEN SC ×7 (08:26→21:00)
[2017-09-24] MEDS: SEVELAMER 800 MG TAB PO ×3 (08:47→17:37)
[2017-09-24] MEDS: CALCIUM ACETATE 667 MG CAP PO ×3 (08:47→17:37)
[2017-09-24] MEDS: HYDROCORTISONE 5 MG TAB PO ×3 (09:00→22:29)
[2017-09-24] MEDS: DULOXETINE 20 MG CAP DR PO (09:22)
[2017-09-24] MEDS: LACTULOSE 30ML CUP PO (09:22)
[2017-09-24] MEDS: DOCUSATE SODIUM 100 MG CAP PO ×2 (09:23→21:16)
[2017-09-24] MEDS: POLYETHYLENE GLYCOL 17 GM PACKET PO ×2 (09:23→21:16)
[2017-09-24] MEDS: BISACODYL (EC) 5 MG TAB PO (09:23)
[2017-09-24] MEDS: LORATADINE 10 MG TAB PO (09:23)
[2017-09-24] MEDS: FLUDROCORTISONE 0.1 MG TAB PO (09:23)
[2017-09-24] MEDS: ONDANSETRON 4 MG INJ IV (09:34)
[2017-09-24] MEDS: morphine 2 MG INJ IV ×2 (10:27→17:38)
[2017-09-24] MEDS: HYDROmorphONE 2 MG TAB PO (12:39)
[2017-09-24] MEDS: DIPHENHYDRAMINE 50 MG INJ IV (13:14)
[2017-09-24] MEDS: NA POLYST SULFON 15 GM/60 ML BTL PO (17:38)
[2017-09-24] MEDS: DIPHENHYDRAMINE 50 MG CAP PO (21:16)
[2017-09-25] MEDS: DIPHENHYDRAMINE 50 MG INJ IV ×4 (03:01→20:39)
[2017-09-25] MEDS: DIAZEPAM 5 MG TAB PO ×3 (06:02→22:20)
[2017-09-25] MEDS: MIDODRINE 5 MG TAB PO ×3 (06:03→22:17)
[2017-09-25] MEDS: LEVOTHYROXINE 175 MCG TAB PO (06:08)
[2017-09-25 06:15] LABS: ANION GAP 26 (8-16); BLOOD UREA NITROGEN 38 mg/dl (7-20); CALCIUM 9.9 mg/dl (8.4-10.2); CARBON DIOXIDE 21 mmol/L (21-31); CHLORIDE 99 mmol/L (97-110); GLUCOSE 202 mg/dl (70-220); POTASSIUM 4.8 mmol/L (3.5-5.1); SODIUM 141 mmol/L (135-144)
[2017-09-25 06:30] LABS: CREATININE 16.98 mg/dl (0.44-1.00)
[2017-09-25] MEDS: LACTULOSE 30ML CUP PO (08:30)
[2017-09-25] MEDS: LORATADINE 10 MG TAB PO (08:31)
[2017-09-25] MEDS: FLUDROCORTISONE 0.1 MG TAB PO (08:31)
[2017-09-25] MEDS: DOCUSATE SODIUM 100 MG CAP PO ×2 (08:31→21:00)
[2017-09-25] MEDS: HYDROCORTISONE 5 MG TAB PO ×3 (08:31→20:35)
[2017-09-25] MEDS: SEVELAMER 800 MG TAB PO ×3 (08:31→17:27)
[2017-09-25] MEDS: DULOXETINE 20 MG CAP DR PO (08:31)
[2017-09-25] MEDS: CALCIUM ACETATE 667 MG CAP PO ×3 (08:31→17:27)
[2017-09-25] MEDS: POLYETHYLENE GLYCOL 17 GM PACKET PO ×2 (08:32→21:00)
[2017-09-25] MEDS: INSULIN DETEMIR [LEVEMIR] 3ML CART SC (08:38)
[2017-09-25] MEDS: NPH, HUMAN INSULIN ISOPHANE 3ML VIAL SC ×2 (08:39→20:34)
[2017-09-25] MEDS: INSULIN ASPART [NOVOLOG] 3 ML PEN SC ×7 (08:39→21:00)
[2017-09-25] MEDS: CITRIC ACID/SODIUM CITRATE 15 ML CUP PO ×3 (08:53→20:35)
[2017-09-25] MEDS: ONDANSETRON 4 MG INJ IV (13:38)
[2017-09-25] MEDS: PANTOPRAZOLE (EC) 40 MG TAB PO (17:27)
[2017-09-26] MEDS: DIAZEPAM 5 MG TAB PO ×3 (06:00→20:42)
[2017-09-26] MEDS: MIDODRINE 5 MG TAB PO ×3 (06:29→20:43)
[2017-09-26] MEDS: LEVOTHYROXINE 175 MCG TAB PO (06:29)
[2017-09-26 08:13] LABS: ANION GAP 23 (8-16); BLOOD UREA NITROGEN 40 mg/dl (7-20); CALCIUM 9.7 mg/dl (8.4-10.2); CARBON DIOXIDE 21 mmol/L (21-31); CHLORIDE 99 mmol/L (97-110); GLUCOSE 320 mg/dl (70-220); POTASSIUM 4.5 mmol/L (3.5-5.1); SODIUM 138 mmol/L (135-144)
[2017-09-26] MEDS: SEVELAMER 800 MG TAB PO ×3 (08:18→18:12)
[2017-09-26] MEDS: CALCIUM ACETATE 667 MG CAP PO ×3 (08:18→18:13)
[2017-09-26] MEDS: NPH, HUMAN INSULIN ISOPHANE 3ML VIAL SC ×2 (08:21→20:49)
[2017-09-26] MEDS: INSULIN DETEMIR [LEVEMIR] 3ML CART SC (08:22)
[2017-09-26] MEDS: INSULIN ASPART [NOVOLOG] 3 ML PEN SC ×7 (08:23→20:46)
[2017-09-26 08:25] LABS: CREATININE 15.91 mg/dl (0.44-1.00)
[2017-09-26] MEDS: LORATADINE 10 MG TAB PO (09:23)
[2017-09-26] MEDS: DOCUSATE SODIUM 100 MG CAP PO ×2 (09:23→20:30)
[2017-09-26] MEDS: CITRIC ACID/SODIUM CITRATE 15 ML CUP PO ×3 (09:23→20:30)
[2017-09-26] MEDS: LACTULOSE 30ML CUP PO (09:25)
[2017-09-26] MEDS: FLUDROCORTISONE 0.1 MG TAB PO (09:25)
[2017-09-26] MEDS: HYDROCORTISONE 5 MG TAB PO ×3 (09:26→20:31)
[2017-09-26] MEDS: DULOXETINE 20 MG CAP DR PO (09:26)
[2017-09-26] MEDS: POLYETHYLENE GLYCOL 17 GM PACKET PO ×2 (09:26→20:29)
[2017-09-26] MEDS: DIPHENHYDRAMINE 50 MG INJ IV ×3 (09:26→20:30)
[2017-09-26] MEDS: ONDANSETRON 4 MG INJ IV ×2 (09:35→15:37)
[2017-09-26] MEDS: DEXTROSE 50% 50 ML SYRINGE IV (17:12)
[2017-09-27] MEDS: DIPHENHYDRAMINE 50 MG INJ IV ×6 (01:23→19:45)
[2017-09-27] MEDS: DIAZEPAM 5 MG TAB PO ×3 (04:40→22:11)
[2017-09-27] MEDS: MIDODRINE 5 MG TAB PO ×3 (04:41→22:06)
[2017-09-27] MEDS: ONDANSETRON 4 MG INJ IV ×3 (04:41→19:50)
[2017-09-27] MEDS: LEVOTHYROXINE 175 MCG TAB PO (04:41)
[2017-09-27 05:32] LABS: ADD MAN DIFF? NO
[2017-09-27 05:40] LABS: BASOPHIL # 0.1 10^3/ul (0.0-0.1); BASOPHILS % 1.3 % (0.0-2.0); EOSINOPHILS # 0.2 10^3/ul (0.0-0.5); EOSINOPHILS % 2.6 % (0.0-7.0); HEMATOCRIT 39.1 % (37.0-47.0); HEMOGLOBIN 12.1 g/dl (12.0-16.0); LYMPHOCYTES # 1.4 10^3/ul (0.8-2.9); LYMPHOCYTES % 15.4 % (15.0-51.0); MEAN CORPUSCULAR HEMOGLOBIN 33.9 pg (29.0-33.0); MEAN CORPUSCULAR HGB CONC 30.9 g/dl (32.0-37.0); MEAN CORPUSCULAR VOLUME 109.5 fl (82.0-101.0); MEAN PLATELET VOLUME 11.1 fl (7.4-10.4); MONOCYTE # 0.7 10^3/ul (0.3-0.9); MONOCYTES % 7.8 % (0.0-11.0); NEUTROPHIL # 6.7 10^3/ul (1.6-7.5); NUCLEATED RED BLOOD CELLS # 0.1 10^3/ul (0.0-0.0); NUCLEATED RED BLOOD CELLS% 0.8 /100WBC (0.0-0.0); PLATELET COUNT 231 10^3/UL (140-415); RED BLOOD COUNT 3.57 10^6/ul (4.20-5.40); RED CELL DISTRIBUTION WIDTH 15.9 % (11.5-14.5)
[2017-09-27 05:40] LABS: WHITE BLOOD COUNT 9.3 10^3/ul (4.8-10.8)
[2017-09-27 06:11] LABS: ANION GAP 24 (8-16); BLOOD UREA NITROGEN 38 mg/dl (7-20); CALCIUM 9.8 mg/dl (8.4-10.2); CARBON DIOXIDE 23 mmol/L (21-31); CHLORIDE 98 mmol/L (97-110); GLUCOSE 270 mg/dl (70-220); POTASSIUM 4.1 mmol/L (3.5-5.1); SODIUM 141 mmol/L (135-144)
[2017-09-27 06:32] LABS: CREATININE 15.64 mg/dl (0.44-1.00)
[2017-09-27] MEDS: DULOXETINE 20 MG CAP DR PO (08:11)
[2017-09-27] MEDS: CITRIC ACID/SODIUM CITRATE 15 ML CUP PO ×3 (08:11→22:00)
[2017-09-27] MEDS: CALCIUM ACETATE 667 MG CAP PO ×3 (08:11→16:58)
[2017-09-27] MEDS: LACTULOSE 30ML CUP PO (08:11)
[2017-09-27] MEDS: POLYETHYLENE GLYCOL 17 GM PACKET PO ×2 (08:11→22:03)
[2017-09-27] MEDS: LORATADINE 10 MG TAB PO (08:12)
[2017-09-27] MEDS: DOCUSATE SODIUM 100 MG CAP PO ×2 (08:12→22:09)
[2017-09-27] MEDS: HYDROCORTISONE 5 MG TAB PO ×3 (08:12→22:00)
[2017-09-27] MEDS: SEVELAMER 800 MG TAB PO ×3 (08:12→16:58)
[2017-09-27] MEDS: FLUDROCORTISONE 0.1 MG TAB PO (08:12)
[2017-09-27] MEDS: INSULIN DETEMIR [LEVEMIR] 3ML CART SC (08:14)
[2017-09-27] MEDS: INSULIN ASPART [NOVOLOG] 3 ML PEN SC ×7 (08:15→21:57)
[2017-09-27] MEDS: NPH, HUMAN INSULIN ISOPHANE 3ML VIAL SC ×2 (08:16→21:58)
[2017-09-28] MEDS: DIPHENHYDRAMINE 50 MG INJ IV ×5 (00:13→20:21)
[2017-09-28] MEDS: ONDANSETRON 4 MG INJ IV ×2 (04:18→10:22)
[2017-09-28 05:34] LABS: ANION GAP 24 (8-16); BLOOD UREA NITROGEN 38 mg/dl (7-20); CALCIUM 10.2 mg/dl (8.4-10.2); CARBON DIOXIDE 24 mmol/L (21-31); CHLORIDE 98 mmol/L (97-110); GLUCOSE 266 mg/dl (70-220); POTASSIUM 4.1 mmol/L (3.5-5.1); SODIUM 142 mmol/L (135-144)
[2017-09-28 05:46] LABS: CREATININE 14.96 mg/dl (0.44-1.00)
[2017-09-28] MEDS: DIAZEPAM 5 MG TAB PO ×3 (06:00→21:38)
[2017-09-28] MEDS: LEVOTHYROXINE 175 MCG TAB PO (06:09)
[2017-09-28] MEDS: MIDODRINE 5 MG TAB PO ×3 (06:09→21:39)
[2017-09-28] MEDS: CITRIC ACID/SODIUM CITRATE 15 ML CUP PO ×3 (08:13→20:28)
[2017-09-28] MEDS: LACTULOSE 30ML CUP PO (08:13)
[2017-09-28] MEDS: DULOXETINE 20 MG CAP DR PO (08:13)
[2017-09-28] MEDS: LORATADINE 10 MG TAB PO (08:13)
[2017-09-28] MEDS: SEVELAMER 800 MG TAB PO ×3 (08:13→16:53)
[2017-09-28] MEDS: POLYETHYLENE GLYCOL 17 GM PACKET PO ×2 (08:13→20:30)
[2017-09-28] MEDS: DOCUSATE SODIUM 100 MG CAP PO ×2 (08:14→20:26)
[2017-09-28] MEDS: HYDROCORTISONE 5 MG TAB PO ×3 (08:14→20:30)
[2017-09-28] MEDS: CALCIUM ACETATE 667 MG CAP PO ×3 (08:14→16:52)
[2017-09-28] MEDS: FLUDROCORTISONE 0.1 MG TAB PO (08:14)
[2017-09-28] MEDS: NPH, HUMAN INSULIN ISOPHANE 3ML VIAL SC ×2 (08:15→20:28)
[2017-09-28] MEDS: INSULIN DETEMIR [LEVEMIR] 3ML CART SC (08:16)
[2017-09-28] MEDS: INSULIN ASPART [NOVOLOG] 3 ML PEN SC ×7 (08:17→20:30)
[2017-09-28] MEDS: morphine 2 MG INJ IV ×2 (13:30→23:17)
[2017-09-29] MEDS: DIPHENHYDRAMINE 50 MG INJ IV ×5 (00:34→20:54)
[2017-09-29] MEDS: MIDODRINE 5 MG TAB PO ×3 (05:17→21:52)
[2017-09-29] MEDS: DIAZEPAM 5 MG TAB PO ×3 (05:18→22:47)
[2017-09-29] MEDS: LEVOTHYROXINE 175 MCG TAB PO (05:18)
[2017-09-29 05:37] LABS: ADD MAN DIFF? NO
[2017-09-29 05:39] LABS: BASOPHIL # 0.1 10^3/ul (0.0-0.1); EOSINOPHILS # 0.2 10^3/ul (0.0-0.5); EOSINOPHILS % 2.6 % (0.0-7.0); HEMATOCRIT 36.9 % (37.0-47.0); HEMOGLOBIN 11.5 g/dl (12.0-16.0); LYMPHOCYTES # 1.1 10^3/ul (0.8-2.9); LYMPHOCYTES % 11.8 % (15.0-51.0); MEAN CORPUSCULAR HGB CONC 31.2 g/dl (32.0-37.0); MEAN CORPUSCULAR VOLUME 109.2 fl (82.0-101.0); MEAN PLATELET VOLUME 10.9 fl (7.4-10.4); MONOCYTE # 0.7 10^3/ul (0.3-0.9); MONOCYTES % 7.6 % (0.0-11.0); NEUTROPHIL # 6.8 10^3/ul (1.6-7.5); NEUTROPHILS % 76.7 % (39.0-77.0); PLATELET COUNT 199 10^3/UL (140-415); RED BLOOD COUNT 3.38 10^6/ul (4.20-5.40); RED CELL DISTRIBUTION WIDTH 15.9 % (11.5-14.5)
[2017-09-29 05:39] LABS: WHITE BLOOD COUNT 8.9 10^3/ul (4.8-10.8)
[2017-09-29 05:57] LABS: ANION GAP 22 (8-16); BLOOD UREA NITROGEN 39 mg/dl (7-20); CALCIUM 9.9 mg/dl (8.4-10.2); CARBON DIOXIDE 25 mmol/L (21-31); CHLORIDE 99 mmol/L (97-110); GLUCOSE 191 mg/dl (70-220); POTASSIUM 3.9 mmol/L (3.5-5.1); SODIUM 142 mmol/L (135-144)
[2017-09-29 06:06] LABS: CREATININE 13.76 mg/dl (0.44-1.00)
[2017-09-29] MEDS: morphine 2 MG INJ IV ×3 (08:03→21:53)
[2017-09-29] MEDS: INSULIN DETEMIR [LEVEMIR] 3ML CART SC (08:09)
[2017-09-29] MEDS: NPH, HUMAN INSULIN ISOPHANE 3ML VIAL SC ×2 (08:09→20:52)
[2017-09-29] MEDS: INSULIN ASPART [NOVOLOG] 3 ML PEN SC ×8 (08:10→21:43)
[2017-09-29] MEDS: CALCIUM ACETATE 667 MG CAP PO ×3 (08:51→16:59)
[2017-09-29] MEDS: LORATADINE 10 MG TAB PO (08:52)
[2017-09-29] MEDS: CITRIC ACID/SODIUM CITRATE 15 ML CUP PO ×3 (08:52→20:52)
[2017-09-29] MEDS: HYDROCORTISONE 5 MG TAB PO ×3 (08:52→20:53)
[2017-09-29] MEDS: SEVELAMER 800 MG TAB PO ×3 (08:52→16:59)
[2017-09-29] MEDS: FLUDROCORTISONE 0.1 MG TAB PO (08:53)
[2017-09-29] MEDS: DULOXETINE 20 MG CAP DR PO (08:53)
[2017-09-29] MEDS: DOCUSATE SODIUM 100 MG CAP PO ×2 (08:54→20:53)
[2017-09-29] MEDS: LACTULOSE 30ML CUP PO (08:54)
[2017-09-29] MEDS: POLYETHYLENE GLYCOL 17 GM PACKET PO ×2 (08:54→20:53)
[2017-09-30] MEDS: DIPHENHYDRAMINE 50 MG INJ IV ×4 (01:53→21:36)
[2017-09-30 05:56] LABS: ADD MAN DIFF? NO
[2017-09-30 05:59] LABS: WHITE BLOOD COUNT 7.6 10^3/ul (4.8-10.8)
[2017-09-30 05:59] LABS: BASOPHIL # 0.1 10^3/ul (0.0-0.1); EOSINOPHILS # 0.3 10^3/ul (0.0-0.5); EOSINOPHILS % 3.7 % (0.0-7.0); HEMATOCRIT 34.3 % (37.0-47.0); HEMOGLOBIN 10.8 g/dl (12.0-16.0); LYMPHOCYTES # 1.2 10^3/ul (0.8-2.9); MEAN CORPUSCULAR HEMOGLOBIN 33.9 pg (29.0-33.0); MEAN CORPUSCULAR HGB CONC 31.5 g/dl (32.0-37.0); MEAN CORPUSCULAR VOLUME 107.5 fl (82.0-101.0); MEAN PLATELET VOLUME 10.9 fl (7.4-10.4); MONOCYTE # 0.7 10^3/ul (0.3-0.9); MONOCYTES % 9.7 % (0.0-11.0); NEUTROPHIL # 5.3 10^3/ul (1.6-7.5); NEUTROPHILS % 69.1 % (39.0-77.0); PLATELET COUNT 163 10^3/UL (140-415); RED BLOOD COUNT 3.19 10^6/ul (4.20-5.40); RED CELL DISTRIBUTION WIDTH 15.2 % (11.5-14.5)
[2017-09-30] MEDS: LEVOTHYROXINE 175 MCG TAB PO (06:27)
[2017-09-30] MEDS: MIDODRINE 5 MG TAB PO ×3 (06:30→21:35)
[2017-09-30] MEDS: DIAZEPAM 5 MG TAB PO ×3 (06:30→22:33)
[2017-09-30 06:40] LABS: ANION GAP 23 (8-16); BLOOD UREA NITROGEN 51 mg/dl (7-20); CALCIUM 9.5 mg/dl (8.4-10.2); CARBON DIOXIDE 26 mmol/L (21-31); CHLORIDE 95 mmol/L (97-110); GLUCOSE 146 mg/dl (70-220); POTASSIUM 4.4 mmol/L (3.5-5.1); SODIUM 140 mmol/L (135-144)
[2017-09-30 06:59] LABS: CREATININE 14.95 mg/dl (0.44-1.00)
[2017-09-30] MEDS: SEVELAMER 800 MG TAB PO ×3 (08:39→17:26)
[2017-09-30] MEDS: CALCIUM ACETATE 667 MG CAP PO ×3 (08:40→17:20)
[2017-09-30] MEDS: INSULIN DETEMIR [LEVEMIR] 3ML CART SC (08:41)
[2017-09-30] MEDS: INSULIN ASPART [NOVOLOG] 3 ML PEN SC ×7 (08:42→20:19)
[2017-09-30] MEDS: NPH, HUMAN INSULIN ISOPHANE 3ML VIAL SC ×2 (08:43→20:16)
[2017-09-30] MEDS: DOCUSATE SODIUM 100 MG CAP PO ×2 (08:45→20:19)
[2017-09-30] MEDS: CITRIC ACID/SODIUM CITRATE 15 ML CUP PO ×2 (08:45→20:17)
[2017-09-30] MEDS: LACTULOSE 30ML CUP PO (08:45)
[2017-09-30] MEDS: DULOXETINE 20 MG CAP DR PO (08:46)
[2017-09-30] MEDS: POLYETHYLENE GLYCOL 17 GM PACKET PO ×2 (08:46→20:19)
[2017-09-30] MEDS: LORATADINE 10 MG TAB PO (08:46)
[2017-09-30] MEDS: HYDROCORTISONE 5 MG TAB PO ×3 (08:46→20:18)
[2017-09-30] MEDS: FLUDROCORTISONE 0.1 MG TAB PO (08:46)
[2017-09-30] MEDS: ONDANSETRON 4 MG INJ IV (13:00)
[2017-09-30] MEDS: morphine 2 MG INJ IV ×2 (13:22→20:26)
[2017-10-01] MEDS: DIPHENHYDRAMINE 50 MG INJ IV ×4 (01:46→16:21)
[2017-10-01] MEDS: morphine 2 MG INJ IV ×3 (04:53→18:17)
[2017-10-01 05:56] LABS: ADD MAN DIFF? NO
[2017-10-01 06:09] LABS: WHITE BLOOD COUNT 8.5 10^3/ul (4.8-10.8)
[2017-10-01 06:09] LABS: BASOPHIL # 0.1 10^3/ul (0.0-0.1); BASOPHILS % 0.8 % (0.0-2.0); EOSINOPHILS # 0.2 10^3/ul (0.0-0.5); EOSINOPHILS % 2.7 % (0.0-7.0); HEMATOCRIT 34.1 % (37.0-47.0); HEMOGLOBIN 10.8 g/dl (12.0-16.0); LYMPHOCYTES # 1.2 10^3/ul (0.8-2.9); LYMPHOCYTES % 14.6 % (15.0-51.0); MEAN CORPUSCULAR HEMOGLOBIN 34.2 pg (29.0-33.0); MEAN CORPUSCULAR HGB CONC 31.7 g/dl (32.0-37.0); MEAN CORPUSCULAR VOLUME 107.9 fl (82.0-101.0); MEAN PLATELET VOLUME 11.3 fl (7.4-10.4); MONOCYTE # 0.8 10^3/ul (0.3-0.9); MONOCYTES % 8.9 % (0.0-11.0); NEUTROPHIL # 6.2 10^3/ul (1.6-7.5); NEUTROPHILS % 72.6 % (39.0-77.0); PLATELET COUNT 159 10^3/UL (140-415); RED BLOOD COUNT 3.16 10^6/ul (4.20-5.40); RED CELL DISTRIBUTION WIDTH 15.4 % (11.5-14.5)
[2017-10-01] MEDS: DIAZEPAM 5 MG TAB PO ×2 (06:20→14:59)
[2017-10-01] MEDS: LEVOTHYROXINE 175 MCG TAB PO (06:20)
[2017-10-01] MEDS: MIDODRINE 5 MG TAB PO ×2 (06:20→14:00)
[2017-10-01 06:39] LABS: ANION GAP 22 (8-16); BLOOD UREA NITROGEN 61 mg/dl (7-20); CALCIUM 9.3 mg/dl (8.4-10.2); CARBON DIOXIDE 25 mmol/L (21-31); CHLORIDE 99 mmol/L (97-110); GLUCOSE 135 mg/dl (70-220); SODIUM 141 mmol/L (135-144)
[2017-10-01 06:46] LABS: CREATININE 16.03 mg/dl (0.44-1.00)
[2017-10-01] MEDS: CALCIUM ACETATE 667 MG CAP PO ×3 (08:53→17:33)
[2017-10-01] MEDS: DULOXETINE 20 MG CAP DR PO (08:53)
[2017-10-01] MEDS: LACTULOSE 30ML CUP PO (08:54)
[2017-10-01] MEDS: FLUDROCORTISONE 0.1 MG TAB PO (08:54)
[2017-10-01] MEDS: SEVELAMER 800 MG TAB PO ×3 (08:54→17:33)
[2017-10-01] MEDS: LORATADINE 10 MG TAB PO (08:54)
[2017-10-01] MEDS: POLYETHYLENE GLYCOL 17 GM PACKET PO (08:54)
[2017-10-01] MEDS: HYDROCORTISONE 5 MG TAB PO ×2 (08:54→17:33)
[2017-10-01] MEDS: DOCUSATE SODIUM 100 MG CAP PO (08:55)
[2017-10-01] MEDS: CITRIC ACID/SODIUM CITRATE 15 ML CUP PO (08:55)
[2017-10-01] MEDS: INSULIN ASPART [NOVOLOG] 3 ML PEN SC ×6 (08:56→17:35)
[2017-10-01] MEDS: INSULIN DETEMIR [LEVEMIR] 3ML CART SC (08:56)
[2017-10-01] MEDS: NPH, HUMAN INSULIN ISOPHANE 3ML VIAL SC (08:57)
[2017-10-01] MEDS: ONDANSETRON 4 MG INJ IV ×2 (11:51→16:21)
== END 2017-10-01 20:17 | disposition home health service (06) | DRG 91 ==
LOC: TEL 09-07 01:49 → PP2 09-21 00:24 → E/R 18:53 → PP2 09-19 16:23
PROC: 3E1M39Z Irrigation of Peritoneal Cavity using Dialysate, Percutaneous Approach (ICD-10-PCS; principal; 2017-09-07)
DX: G89.4 Chronic pain syndrome (principal); N17.0 Acute kidney failure with tubular necrosis; I47.2 Ventricular tachycardia; I12.0 Hypertensive chronic kidney disease with stage 5 chronic kidney disease or end stage renal disease; R65.10 Systemic inflammatory response syndrome (SIRS) of non-infectious origin without acute organ dysfunction; N18.6 End stage renal disease; E11.22 Type 2 diabetes mellitus with diabetic chronic kidney disease; E27.40 Unspecified adrenocortical insufficiency; Z68.41 Body mass index [BMI] 40.0-44.9, adult; G25.82 Stiff-man syndrome; F11.20 Opioid dependence, uncomplicated; I95.3 Hypotension of hemodialysis; E11.65 Type 2 diabetes mellitus with hyperglycemia; Z99.2 Dependence on renal dialysis; E87.5 Hyperkalemia; E66.01 Morbid (severe) obesity due to excess calories; L73.9 Follicular disorder, unspecified; G40.909 Epilepsy, unspecified, not intractable, without status epilepticus; E83.51 Hypocalcemia; D72.829 Elevated white blood cell count, unspecified; M25.562 Pain in left knee; M25.561 Pain in right knee; E03.9 Hypothyroidism, unspecified; R10.84 Generalized abdominal pain
CPT/HCPCS: 36415; 73562; 80048; 80053; 82533; 82947; 82962; 83690; 84436; 84479; 84484; 85025; 87070; 87340; 89051; 90945; 93005; 93306; 96372; 96374; 96375; 97110; 97116; 97161; 97530; 99285-25

== ENCOUNTER 2017-11-10 21:49 | Inpatient (IN) | payer OTHER ==
[2017-11-10] MEDS: morphine 4 MG/ML VIAL IV (23:23)
[2017-11-10] MEDS: SOD CHLORIDE 0.9% 500 ML IV (23:23)
[2017-11-10] MEDS: ONDANSETRON 4 MG INJ IV (23:23)
[2017-11-10 23:25] LABS: ADD MAN DIFF? NO
[2017-11-10 23:43] LABS: LACTIC ACID 1.4 mmol/L (0.5-2.0)
[2017-11-10 23:44] LABS: WHITE BLOOD COUNT 10.7 10^3/ul (4.8-10.8)
[2017-11-10 23:44] LABS: ALANINE AMINOTRANSFERASE 24 IU/L (13-69); ALBUMIN 4.1 g/dl (3.3-4.9); ALKALINE PHOSPHATASE 267 IU/L (42-121); ANION GAP 28 (8-16); ASPARTATE AMINO TRANSFERASE 23 IU/L (15-46); BASOPHIL # 0.1 10^3/ul (0.0-0.1); BASOPHILS % 0.5 % (0.0-2.0); BLOOD UREA NITROGEN 94 mg/dl (7-20); CARBON DIOXIDE 24 mmol/L (21-31); CHLORIDE 93 mmol/L (97-110); EOSINOPHILS # 0.2 10^3/ul (0.0-0.5); EOSINOPHILS % 1.9 % (0.0-7.0); GLUCOSE 145 mg/dl (70-220); HEMATOCRIT 29.7 % (37.0-47.0); HEMOGLOBIN 9.6 g/dl (12.0-16.0); LIPASE 25 U/L (23-300); LYMPHOCYTES # 1.2 10^3/ul (0.8-2.9); LYMPHOCYTES % 10.9 % (15.0-51.0); MEAN CORPUSCULAR HEMOGLOBIN 34.5 pg (29.0-33.0); MEAN CORPUSCULAR HGB CONC 32.3 g/dl (32.0-37.0); MEAN CORPUSCULAR VOLUME 106.8 fl (82.0-101.0); MEAN PLATELET VOLUME 10.2 fl (7.4-10.4); MONOCYTE # 0.6 10^3/ul (0.3-0.9); MONOCYTES % 5.9 % (0.0-11.0); NEUTROPHIL # 8.5 10^3/ul (1.6-7.5); NEUTROPHILS % 79.7 % (39.0-77.0); PLATELET COUNT 265 10^3/UL (140-415); POTASSIUM 5.6 mmol/L (3.5-5.1); RED BLOOD COUNT 2.78 10^6/ul (4.20-5.40); RED CELL DISTRIBUTION WIDTH 13.9 % (11.5-14.5); SODIUM 139 mmol/L (135-144); TOTAL PROTEIN 7.5 g/dl (6.1-8.1)
[2017-11-10 23:51] LABS: CREATININE 17.23 mg/dl (0.44-1.00)
[2017-11-10 23:56] LABS: TROPONIN-I 0.036 ng/ml (0.00-0.12)
[2017-11-11 00:15] LABS: THYROID STIMULATING HORMONE 0.019 MIU/L (0.465-4.680)
[2017-11-11] MEDS: DIPHENHYDRAMINE 25 MG CAP PO ×2 (01:28→18:30)
[2017-11-11] MEDS: LACTULOSE 30ML CUP PO (03:27)
[2017-11-11] MEDS: ACETAMINOPHEN 325 MG TAB PO ×2 (05:48→08:52)
[2017-11-11] MEDS: ONDANSETRON 4 MG INJ IV ×2 (08:54→17:41)
[2017-11-11] MEDS ORDERED: GLUCOSE GEL 15 GRAM TUBE PO (09:30)
[2017-11-11] MEDS ORDERED: GLUCAGON 1 MG INJ IM (09:30)
[2017-11-11] MEDS ORDERED: DEXTROSE 50% 50 ML SYRINGE IV (09:30)
[2017-11-11] MEDS: HYDROCODONE/APAP (5/325) TAB PO ×3 (09:56→21:35)
[2017-11-11] MEDS: INSULIN ASPART [NOVOLOG] 3 ML PEN SC ×3 (11:35→20:54)
[2017-11-11] MEDS: DIPHENHYDRAMINE 50 MG INJ IV (11:39)
[2017-11-11] MEDS ORDERED: ACETAMINOPHEN 325 MG TAB PO (13:00)
[2017-11-11] MEDS: DIAZEPAM 5 MG TAB PO ×2 (14:00→20:51)
[2017-11-11 15:05] LABS: HEPATITIS B SURFACE ANTIGEN NEGATIVE (NEGATIVE)
[2017-11-11] MEDS: MIDODRINE 5 MG TAB PO ×2 (16:40→20:52)
[2017-11-11] MEDS: CALCIUM ACETATE 667 MG CAP PO (17:57)
[2017-11-11] MEDS: SEVELAMER 800 MG TAB PO (17:58)
[2017-11-11] MEDS: HYDROCORTISONE 5 MG TAB PO ×2 (17:58→20:46)
[2017-11-11] MEDS: DOCUSATE SODIUM 100 MG CAP PO (20:55)
[2017-11-12] MEDS: DIPHENHYDRAMINE 25 MG CAP PO ×2 (00:24→09:41)
[2017-11-12] MEDS: ACCU-CHEK XX (02:00)
[2017-11-12] MEDS: HYDROCODONE/APAP (5/325) TAB PO (03:34)
[2017-11-12] MEDS: LEVOTHYROXINE 150 MCG TAB PO (05:31)
[2017-11-12] MEDS: MIDODRINE 5 MG TAB PO ×3 (05:31→21:07)
[2017-11-12] MEDS: DIAZEPAM 5 MG TAB PO ×3 (05:32→21:08)
[2017-11-12] MEDS ORDERED: LEVOTHYROXINE 175 MCG TAB PO (06:00)
[2017-11-12 07:03] LABS: ADD MAN DIFF? NO
[2017-11-12 07:17] LABS: BASOPHIL # 0.1 10^3/ul (0.0-0.1); BASOPHILS % 0.8 % (0.0-2.0); EOSINOPHILS # 0.2 10^3/ul (0.0-0.5); HEMATOCRIT 27.5 % (37.0-47.0); HEMOGLOBIN 8.7 g/dl (12.0-16.0); LYMPHOCYTES # 1.1 10^3/ul (0.8-2.9); LYMPHOCYTES % 14.8 % (15.0-51.0); MEAN CORPUSCULAR HEMOGLOBIN 33.5 pg (29.0-33.0); MEAN CORPUSCULAR HGB CONC 31.6 g/dl (32.0-37.0); MEAN CORPUSCULAR VOLUME 105.8 fl (82.0-101.0); MONOCYTE # 0.5 10^3/ul (0.3-0.9); MONOCYTES % 6.5 % (0.0-11.0); NEUTROPHIL # 5.5 10^3/ul (1.6-7.5); PLATELET COUNT 257 10^3/UL (140-415)
[2017-11-12 07:17] LABS: WHITE BLOOD COUNT 7.4 10^3/ul (4.8-10.8)
[2017-11-12 07:41] LABS: ANION GAP 22 (8-16); BLOOD UREA NITROGEN 94 mg/dl (7-20); CARBON DIOXIDE 25 mmol/L (21-31); CHLORIDE 97 mmol/L (97-110); GLUCOSE 257 mg/dl (70-220); POTASSIUM 4.9 mmol/L (3.5-5.1); SODIUM 139 mmol/L (135-144)
[2017-11-12 07:48] LABS: CREATININE 16.96 mg/dl (0.44-1.00)
[2017-11-12] MEDS: SEVELAMER 800 MG TAB PO ×3 (08:20→17:36)
[2017-11-12] MEDS: CALCIUM ACETATE 667 MG CAP PO ×3 (08:20→17:36)
[2017-11-12] MEDS: INSULIN ASPART [NOVOLOG] 3 ML PEN SC ×6 (08:25→21:00)
[2017-11-12] MEDS: NPH, HUMAN INSULIN ISOPHANE 3ML VIAL SC (08:33)
[2017-11-12] MEDS: DULOXETINE 20 MG CAP DR PO (08:36)
[2017-11-12] MEDS: HYDROCORTISONE 5 MG TAB PO ×3 (08:36→21:11)
[2017-11-12] MEDS: DOCUSATE SODIUM 100 MG CAP PO ×2 (08:37→21:06)
[2017-11-12] MEDS: INSULIN DETEMIR [LEVEMIR] 3ML CART SC (10:15)
[2017-11-12] MEDS: ONDANSETRON 4 MG INJ IV ×2 (11:29→22:03)
[2017-11-12] MEDS: GLUCOSE GEL 15 GRAM TUBE BUCCAL (12:24)
[2017-11-12] MEDS: DEXTROSE 50% 50 ML SYRINGE IV (12:46)
[2017-11-12 12:47] LABS: UR ASCORBIC ACID NEGATIVE (NEGATIVE); UR BILIRUBIN (Dip) NEGATIVE (NEGATIVE); UR BLOOD (Dip) NEGATIVE (NEGATIVE); UR KETONES (Dip) NEGATIVE (NEGATIVE); UR LEUKOCYTE ESTERASE (Dip) NEGATIVE Leu/ul (NEGATIVE); UR NITRITE (Dip) NEGATIVE (NEGATIVE); UR RBC 0 /HPF (0-5); UR UROBILINOGEN (Dip) NEGATIVE (NEGATIVE); UR WBC 1 /HPF (0-5)
[2017-11-12 17:17] LABS: AMPHETAMINE/METHAMPHETAMINE NEGATIVE (NEGATIVE)
[2017-11-12 17:18] LABS: BARBITURATES NEGATIVE (NEGATIVE); BENZODIAZEPINES NEGATIVE (NEGATIVE)
[2017-11-12 17:19] LABS: CANNABINOIDS NEGATIVE (NEGATIVE); COCAINE NEGATIVE (NEGATIVE); OPIATES NEGATIVE (NEGATIVE)
[2017-11-12 17:21] LABS: ADD UMIC YES; UR COLOR COLORLESS (YELLOW)
[2017-11-12 17:22] LABS: UR CLARITY CLEAR (CLEAR); UR SPECIFIC GRAVITY (Dip) 1.008 (1.003-1.030)
[2017-11-12 17:23] LABS: UR GLUCOSE (Dip) 3+ mg/dL (NEGATIVE); UR TOTAL PROTEIN (Dip) 1+ mg/dl (NEGATIVE)
[2017-11-12 17:44] LABS: FLD RBC 0 /uL; FLD WBC 2 /cmm
[2017-11-12] MEDS ORDERED: ZOLPIDEM 5 MG TAB PO (19:30)
[2017-11-12 20:10] LABS: FLD CLARITY CLEAR
[2017-11-12 20:10] LABS: FLD TYPE PERITONEAL
[2017-11-12 20:11] LABS: FLD COLOR COLORLESS
[2017-11-12] MEDS: ACETAMINOPHEN 325 MG TAB PO (21:58)
[2017-11-12] MEDS: HEPARIN 1000 UNITS/ML 10 ML INJ IRR (23:20)
[2017-11-13] MEDS: DIPHENHYDRAMINE 50 MG INJ IV ×3 (01:15→22:10)
[2017-11-13] MEDS: ACCU-CHEK XX (02:19)
[2017-11-13] MEDS: DIAZEPAM 5 MG TAB PO ×3 (06:03→22:09)
[2017-11-13] MEDS: LEVOTHYROXINE 150 MCG TAB PO (06:03)
[2017-11-13] MEDS: MIDODRINE 5 MG TAB PO ×3 (06:03→22:10)
[2017-11-13 07:48] LABS: ADD MAN DIFF? NO
[2017-11-13 07:53] LABS: BASOPHIL # 0.1 10^3/ul (0.0-0.1); BASOPHILS % 0.8 % (0.0-2.0); EOSINOPHILS # 0.3 10^3/ul (0.0-0.5); EOSINOPHILS % 3.6 % (0.0-7.0); HEMATOCRIT 28.6 % (37.0-47.0); HEMOGLOBIN 9.2 g/dl (12.0-16.0); LYMPHOCYTES # 1.4 10^3/ul (0.8-2.9); LYMPHOCYTES % 18.8 % (15.0-51.0); MEAN CORPUSCULAR HEMOGLOBIN 33.9 pg (29.0-33.0); MEAN CORPUSCULAR HGB CONC 32.2 g/dl (32.0-37.0); MEAN CORPUSCULAR VOLUME 105.5 fl (82.0-101.0); MONOCYTE # 0.6 10^3/ul (0.3-0.9); MONOCYTES % 7.9 % (0.0-11.0); NEUTROPHILS % 68.3 % (39.0-77.0); PLATELET COUNT 271 10^3/UL (140-415); RED BLOOD COUNT 2.71 10^6/ul (4.20-5.40); RED CELL DISTRIBUTION WIDTH 13.6 % (11.5-14.5)
[2017-11-13 07:53] LABS: WHITE BLOOD COUNT 7.3 10^3/ul (4.8-10.8)
[2017-11-13] MEDS: INSULIN ASPART [NOVOLOG] 3 ML PEN SC ×6 (07:55→20:29)
[2017-11-13 08:24] LABS: ANION GAP 27 (8-16); BLOOD UREA NITROGEN 90 mg/dl (7-20); CALCIUM 8.3 mg/dl (8.4-10.2); CARBON DIOXIDE 22 mmol/L (21-31); CHLORIDE 97 mmol/L (97-110); GLUCOSE 122 mg/dl (70-220); POTASSIUM 4.4 mmol/L (3.5-5.1); SODIUM 142 mmol/L (135-144)
[2017-11-13 08:33] LABS: CREATININE 17.71 mg/dl (0.44-1.00)
[2017-11-13] MEDS: DULOXETINE 20 MG CAP DR PO (08:39)
[2017-11-13] MEDS: SEVELAMER 800 MG TAB PO ×3 (08:39→17:54)
[2017-11-13] MEDS: CALCIUM ACETATE 667 MG CAP PO ×3 (08:39→17:54)
[2017-11-13] MEDS: DOCUSATE SODIUM 100 MG CAP PO ×2 (08:39→20:30)
[2017-11-13] MEDS: HYDROCORTISONE 5 MG TAB PO ×3 (08:39→20:30)
[2017-11-13] MEDS: NPH, HUMAN INSULIN ISOPHANE 3ML VIAL SC (08:49)
[2017-11-13] MEDS: INSULIN DETEMIR [LEVEMIR] 3ML CART SC (08:49)
[2017-11-13] MEDS: ONDANSETRON 4 MG INJ IV ×2 (08:59→17:54)
[2017-11-13] MEDS: ACETAMINOPHEN 325 MG TAB PO (20:30)
[2017-11-14] MEDS: HYDROCODONE/APAP (5/325) TAB PO ×2 (00:14→08:45)
[2017-11-14] MEDS: ACCU-CHEK XX (01:40)
[2017-11-14] MEDS: ONDANSETRON 4 MG INJ IV ×3 (01:40→15:23)
[2017-11-14] MEDS: ACETAMINOPHEN 325 MG TAB PO (03:18)
[2017-11-14] MEDS: DIPHENHYDRAMINE 50 MG INJ IV ×4 (04:40→21:34)
[2017-11-14] MEDS: DIAZEPAM 5 MG TAB PO ×3 (05:15→21:34)
[2017-11-14] MEDS: LEVOTHYROXINE 150 MCG TAB PO (05:15)
[2017-11-14] MEDS: MIDODRINE 5 MG TAB PO ×4 (05:15→21:35)
[2017-11-14 07:02] LABS: ADD MAN DIFF? NO
[2017-11-14 07:13] LABS: BASOPHIL # 0.1 10^3/ul (0.0-0.1); BASOPHILS % 0.9 % (0.0-2.0); EOSINOPHILS # 0.2 10^3/ul (0.0-0.5); EOSINOPHILS % 3.1 % (0.0-7.0); HEMATOCRIT 29.9 % (37.0-47.0); HEMOGLOBIN 9.5 g/dl (12.0-16.0); LYMPHOCYTES # 1.2 10^3/ul (0.8-2.9); LYMPHOCYTES % 15.2 % (15.0-51.0); MEAN CORPUSCULAR HEMOGLOBIN 33.8 pg (29.0-33.0); MEAN CORPUSCULAR HGB CONC 31.8 g/dl (32.0-37.0); MEAN CORPUSCULAR VOLUME 106.4 fl (82.0-101.0); MEAN PLATELET VOLUME 10.1 fl (7.4-10.4); MONOCYTE # 0.6 10^3/ul (0.3-0.9); MONOCYTES % 8.2 % (0.0-11.0); NEUTROPHIL # 5.6 10^3/ul (1.6-7.5); PLATELET COUNT 295 10^3/UL (140-415); RED BLOOD COUNT 2.81 10^6/ul (4.20-5.40); RED CELL DISTRIBUTION WIDTH 13.6 % (11.5-14.5)
[2017-11-14 07:13] LABS: WHITE BLOOD COUNT 7.7 10^3/ul (4.8-10.8)
[2017-11-14 07:27] LABS: ANION GAP 24 (8-16); BLOOD UREA NITROGEN 77 mg/dl (7-20); CALCIUM 8.8 mg/dl (8.4-10.2); CARBON DIOXIDE 24 mmol/L (21-31); CHLORIDE 99 mmol/L (97-110); GLUCOSE 153 mg/dl (70-220); POTASSIUM 4.9 mmol/L (3.5-5.1); SODIUM 142 mmol/L (135-144)
[2017-11-14 07:34] LABS: CREATININE 16.91 mg/dl (0.44-1.00)
[2017-11-14] MEDS: INSULIN ASPART [NOVOLOG] 3 ML PEN SC ×4 (07:55→20:33)
[2017-11-14] MEDS: SEVELAMER 800 MG TAB PO ×3 (08:21→20:33)
[2017-11-14] MEDS: CALCIUM ACETATE 667 MG CAP PO ×2 (08:22→18:02)
[2017-11-14] MEDS: INSULIN DETEMIR [LEVEMIR] 3ML CART SC (08:42)
[2017-11-14] MEDS: DULOXETINE 20 MG CAP DR PO (08:45)
[2017-11-14] MEDS: DOCUSATE SODIUM 100 MG CAP PO ×2 (08:45→20:31)
[2017-11-14] MEDS: HYDROCORTISONE 5 MG TAB PO ×3 (08:46→20:33)
[2017-11-14] MEDS: NPH, HUMAN INSULIN ISOPHANE 3ML VIAL SC (08:57)
[2017-11-14] MEDS: MECLIZINE 25 MG TAB PO (15:23)
[2017-11-14] MEDS: GLUCOSE GEL 15 GRAM TUBE PO (18:12)
[2017-11-15] MEDS: ONDANSETRON 4 MG INJ IV ×4 (01:16→21:55)
[2017-11-15] MEDS: HYDROCODONE/APAP (5/325) TAB PO ×3 (01:17→21:56)
[2017-11-15] MEDS: ACCU-CHEK XX (02:00)
[2017-11-15] MEDS: ACETAMINOPHEN 325 MG TAB PO (03:09)
[2017-11-15] MEDS: DIPHENHYDRAMINE 50 MG INJ IV ×4 (03:41→21:55)
[2017-11-15] MEDS: LEVOTHYROXINE 150 MCG TAB PO (06:00)
[2017-11-15] MEDS: DIAZEPAM 5 MG TAB PO ×3 (06:00→21:56)
[2017-11-15] MEDS: MIDODRINE 5 MG TAB PO ×3 (06:01→21:56)
[2017-11-15] MEDS: SEVELAMER 800 MG TAB PO ×3 (08:58→18:01)
[2017-11-15] MEDS: DOCUSATE SODIUM 100 MG CAP PO ×2 (08:59→21:11)
[2017-11-15] MEDS: HYDROCORTISONE 5 MG TAB PO ×3 (08:59→21:11)
[2017-11-15] MEDS: CALCIUM ACETATE 667 MG CAP PO ×3 (08:59→18:01)
[2017-11-15] MEDS: DULOXETINE 20 MG CAP DR PO (08:59)
[2017-11-15] MEDS: NPH, HUMAN INSULIN ISOPHANE 3ML VIAL SC ×2 (09:00→21:16)
[2017-11-15] MEDS: INSULIN ASPART [NOVOLOG] 3 ML PEN SC ×6 (09:12→21:00)
[2017-11-15] MEDS: INSULIN DETEMIR [LEVEMIR] 3ML CART SC (09:13)
[2017-11-15] MEDS: DIPHENHYDRAMINE 1%/ZINC 28.3 GM CR TOP (18:01)
[2017-11-16] MEDS: ACCU-CHEK XX (02:00)
[2017-11-16] MEDS: DIAZEPAM 5 MG TAB PO ×3 (06:47→22:26)
[2017-11-16] MEDS: LEVOTHYROXINE 150 MCG TAB PO (06:47)
[2017-11-16] MEDS: MIDODRINE 5 MG TAB PO ×3 (06:47→22:26)
[2017-11-16] MEDS: DIPHENHYDRAMINE 1%/ZINC 28.3 GM CR TOP ×4 (06:53→18:00)
[2017-11-16] MEDS: CALCIUM ACETATE 667 MG CAP PO ×3 (08:47→17:45)
[2017-11-16] MEDS: DOCUSATE SODIUM 100 MG CAP PO ×2 (08:47→20:37)
[2017-11-16] MEDS: HYDROCORTISONE 5 MG TAB PO ×3 (08:47→20:37)
[2017-11-16] MEDS: SEVELAMER 800 MG TAB PO ×3 (08:48→17:44)
[2017-11-16] MEDS: DULOXETINE 20 MG CAP DR PO (08:48)
[2017-11-16] MEDS: INSULIN ASPART [NOVOLOG] 3 ML PEN SC ×6 (08:52→20:38)
[2017-11-16] MEDS: INSULIN DETEMIR [LEVEMIR] 3ML CART SC (08:53)
[2017-11-16] MEDS: DIPHENHYDRAMINE 50 MG INJ IV ×3 (09:04→22:25)
[2017-11-16] MEDS: HYDROCODONE/APAP (5/325) TAB PO (09:04)
[2017-11-16] MEDS: ONDANSETRON 4 MG INJ IV ×2 (09:05→20:44)
[2017-11-16] MEDS: NPH, HUMAN INSULIN ISOPHANE 3ML VIAL SC (20:35)
[2017-11-17] MEDS: HYDROCODONE/APAP (5/325) TAB PO ×3 (01:26→18:36)
[2017-11-17] MEDS: ACCU-CHEK XX (01:29)
[2017-11-17] MEDS: DIPHENHYDRAMINE 50 MG INJ IV ×3 (04:02→15:48)
[2017-11-17] MEDS: MIDODRINE 5 MG TAB PO ×2 (05:28→14:52)
[2017-11-17] MEDS: LEVOTHYROXINE 150 MCG TAB PO (05:28)
[2017-11-17] MEDS: DIPHENHYDRAMINE 1%/ZINC 28.3 GM CR TOP ×4 (05:29→18:00)
[2017-11-17] MEDS: DIAZEPAM 5 MG TAB PO ×2 (05:31→14:52)
[2017-11-17] MEDS: CALCIUM ACETATE 667 MG CAP PO ×3 (09:05→18:32)
[2017-11-17] MEDS: DULOXETINE 20 MG CAP DR PO (09:05)
[2017-11-17] MEDS: HYDROCORTISONE 5 MG TAB PO ×2 (09:05→18:31)
[2017-11-17] MEDS: SEVELAMER 800 MG TAB PO ×3 (09:05→18:31)
[2017-11-17] MEDS: ONDANSETRON 4 MG INJ IV (09:06)
[2017-11-17] MEDS: INSULIN ASPART [NOVOLOG] 3 ML PEN SC ×5 (09:07→17:55)
[2017-11-17] MEDS: DOCUSATE SODIUM 100 MG CAP PO (09:09)
[2017-11-17] MEDS: INSULIN DETEMIR [LEVEMIR] 3ML CART SC (09:09)
[2017-11-17] MEDS: NPH, HUMAN INSULIN ISOPHANE 3ML VIAL SC (17:00)
== END 2017-11-17 19:00 | disposition home or self-care (01) | DRG 70 ==
LOC: MS1 11-15 14:09 → E/R 21:49 → TEL 11-11 03:45 → MS1 11-14 11:45 → TEL 11-11 19:56
PROVIDERS: Internal Medicine
DX: G93.49 Other encephalopathy (principal); N18.6 End stage renal disease; I12.0 Hypertensive chronic kidney disease with stage 5 chronic kidney disease or end stage renal disease; G93.40 Encephalopathy, unspecified; E87.5 Hyperkalemia; D63.8 Anemia in other chronic diseases classified elsewhere; Z68.36 Body mass index [BMI] 36.0-36.9, adult; Z99.2 Dependence on renal dialysis; E66.9 Obesity, unspecified; E10.9 Type 1 diabetes mellitus without complications; G40.909 Epilepsy, unspecified, not intractable, without status epilepticus; G89.4 Chronic pain syndrome; G25.82 Stiff-man syndrome; E03.9 Hypothyroidism, unspecified; F32.9 Major depressive disorder, single episode, unspecified; R06.83 Snoring; M20.011 Mallet finger of right finger(s)
CPT/HCPCS: 36415; 71045; 73130-RT; 80048; 80053; 80307; 81001; 82962; 83605; 83690; 84443; 84484; 85025; 85651; 87070; 87081; 87102; 87116; 87340; 89051; 90945; 93005; 96374; 96375; 99285-25

== ENCOUNTER 2017-12-18 23:05 | Emergency (ER) | payer OTHER ==
[2017-12-19] MEDS: HYDROCODONE/APAP (10/325) TAB PO (00:20)
== END 2017-12-19 01:18 | disposition home or self-care (01) ==
LOC: FTE 12-19 01:18
DX: S80.12XA Contusion of left lower leg, initial encounter (principal); N18.6 End stage renal disease; E10.22 Type 1 diabetes mellitus with diabetic chronic kidney disease; W05.0XXA Fall from non-moving wheelchair, initial encounter; Y92.9 Unspecified place or not applicable; Z79.4 Long term (current) use of insulin; Z99.2 Dependence on renal dialysis
CPT/HCPCS: 73590; 99283-25

== ENCOUNTER 2018-01-28 16:33 | Inpatient (IN) | payer OTHER ==
[2018-01-28 19:57] LABS: ADD MAN DIFF? NO
[2018-01-28] MEDS: LIDOCAINE/MYLANTA 40 ML BTL PO (19:59)
[2018-01-28] MEDS: morphine 4 MG/ML VIAL IV (19:59)
[2018-01-28] MEDS: ONDANSETRON 4 MG INJ IV (19:59)
[2018-01-28] MEDS: SOD CHLORIDE 0.9% 500 ML IV (20:00)
[2018-01-28 20:04] LABS: WHITE BLOOD COUNT 12.3 10^3/ul (4.8-10.8)
[2018-01-28 20:04] LABS: BASOPHIL # 0.1 10^3/ul (0.0-0.1); BASOPHILS % 0.8 % (0.0-2.0); EOSINOPHILS # 0.3 10^3/ul (0.0-0.5); EOSINOPHILS % 2.3 % (0.0-7.0); HEMATOCRIT 33.1 % (37.0-47.0); HEMOGLOBIN 10.5 g/dl (12.0-16.0); LYMPHOCYTES # 1.5 10^3/ul (0.8-2.9); LYMPHOCYTES % 11.8 % (15.0-51.0); MEAN CORPUSCULAR HEMOGLOBIN 33.5 pg (29.0-33.0); MEAN CORPUSCULAR HGB CONC 31.7 g/dl (32.0-37.0); MEAN CORPUSCULAR VOLUME 105.8 fl (82.0-101.0); MEAN PLATELET VOLUME 10.6 fl (7.4-10.4); MONOCYTE # 0.7 10^3/ul (0.3-0.9); MONOCYTES % 5.5 % (0.0-11.0); NEUTROPHIL # 9.7 10^3/ul (1.6-7.5); NEUTROPHILS % 78.9 % (39.0-77.0); PLATELET COUNT 254 10^3/UL (140-415); RED BLOOD COUNT 3.13 10^6/ul (4.20-5.40); RED CELL DISTRIBUTION WIDTH 14.9 % (11.5-14.5)
[2018-01-28 20:09] LABS: ALANINE AMINOTRANSFERASE 25 IU/L (13-69); ALBUMIN 3.9 g/dl (3.3-4.9); ALBUMIN/GLOBULIN RATIO 1.11; ALKALINE PHOSPHATASE 228 IU/L (42-121); ANION GAP 21 (8-16); ASPARTATE AMINO TRANSFERASE 46 IU/L (15-46); BLOOD UREA NITROGEN 49 mg/dl (7-20); CALCIUM 7.9 mg/dl (8.4-10.2); CARBON DIOXIDE 28 mmol/L (21-31); CHLORIDE 96 mmol/L (97-110); GLUCOSE 144 mg/dl (70-220); LIPASE 14 U/L (23-300); POTASSIUM 4.5 mmol/L (3.5-5.1); SODIUM 140 mmol/L (135-144); TOTAL PROTEIN 7.4 g/dl (6.1-8.1)
[2018-01-28 20:19] LABS: CREATININE 16.33 mg/dl (0.44-1.00)
[2018-01-28] MEDS: DIPHENHYDRAMINE 25 MG CAP PO (22:30)
[2018-01-29] MEDS: morphine 4 MG/ML VIAL IV (01:20)
[2018-01-29] MEDS: ONDANSETRON 4 MG INJ IV ×3 (01:20→23:05)
[2018-01-29] MEDS: DIPHENHYDRAMINE 50 MG INJ IV ×3 (01:24→16:38)
[2018-01-29] MEDS ORDERED: morphine 2 MG INJ IV (08:00)
[2018-01-29] MEDS ORDERED: DIPHENHYDRAMINE 50 MG INJ IV (08:00)
[2018-01-29] MEDS: HEPARIN 5,000 UNIT/0.5 ML VIAL SC ×2 (09:41→21:09)
[2018-01-29] MEDS: HYDROmorphONE 1 MG/ML SYG IV ×4 (09:46→20:02)
[2018-01-29] MEDS: INSULIN ASPART [NOVOLOG] 3 ML PEN SC ×5 (10:13→21:00)
[2018-01-29] MEDS: SEVELAMER CARBONATE 800 MG TABLET PO (19:19)
[2018-01-29] MEDS: CALCIUM ACETATE 667 MG CAP PO (19:19)
[2018-01-29] MEDS: METOCLOPRAMIDE 10 MG INJ IV (19:20)
[2018-01-29] MEDS: HYDROCORTISONE 5 MG TAB PO (21:05)
[2018-01-29] MEDS: NPH, HUMAN INSULIN ISOPHANE 3ML VIAL SC (21:10)
[2018-01-29] MEDS: INSULIN DETEMIR [LEVEMIR] (100 UNITS/ML) SYG SC (21:11)
[2018-01-30] MEDS: METOCLOPRAMIDE 10 MG INJ IV ×4 (00:36→17:45)
[2018-01-30 01:06] LABS: HEPATITIS B SURFACE ANTIGEN NEGATIVE (NEGATIVE)
[2018-01-30] MEDS: ACCU-CHEK XX (02:00)
[2018-01-30] MEDS: DIPHENHYDRAMINE 50 MG INJ IV ×3 (02:08→20:43)
[2018-01-30 05:04] LABS: ADD MAN DIFF? NO
[2018-01-30 05:12] LABS: HEPATITIS B SURFACE ANTIBODY INDETERMINATE (NEGATIVE)
[2018-01-30 05:15] LABS: WHITE BLOOD COUNT 7.1 10^3/ul (4.8-10.8)
[2018-01-30 05:15] LABS: BASOPHIL # 0.1 10^3/ul (0.0-0.1); BASOPHILS % 0.7 % (0.0-2.0); EOSINOPHILS # 0.3 10^3/ul (0.0-0.5); EOSINOPHILS % 3.5 % (0.0-7.0); HEMATOCRIT 28.7 % (37.0-47.0); HEMOGLOBIN 9.1 g/dl (12.0-16.0); LYMPHOCYTES # 1.2 10^3/ul (0.8-2.9); LYMPHOCYTES % 17.3 % (15.0-51.0); MEAN CORPUSCULAR HEMOGLOBIN 33.8 pg (29.0-33.0); MEAN CORPUSCULAR HGB CONC 31.7 g/dl (32.0-37.0); MEAN CORPUSCULAR VOLUME 106.7 fl (82.0-101.0); MEAN PLATELET VOLUME 10.5 fl (7.4-10.4); MONOCYTE # 0.6 10^3/ul (0.3-0.9); MONOCYTES % 7.9 % (0.0-11.0); NEUTROPHIL # 4.9 10^3/ul (1.6-7.5); NEUTROPHILS % 69.9 % (39.0-77.0); PLATELET COUNT 215 10^3/UL (140-415); RED BLOOD COUNT 2.69 10^6/ul (4.20-5.40); RED CELL DISTRIBUTION WIDTH 14.5 % (11.5-14.5)
[2018-01-30 05:41] LABS: ANION GAP 18 (8-16); BLOOD UREA NITROGEN 55 mg/dl (7-20); CALCIUM 7.6 mg/dl (8.4-10.2); CARBON DIOXIDE 27 mmol/L (21-31); CHLORIDE 97 mmol/L (97-110); GLUCOSE 125 mg/dl (70-220); POTASSIUM 4.5 mmol/L (3.5-5.1); SODIUM 137 mmol/L (135-144)
[2018-01-30] MEDS: LEVOTHYROXINE 150 MCG TAB PO (05:44)
[2018-01-30] MEDS: PANTOPRAZOLE 40 MG INJ IV (05:44)
[2018-01-30] MEDS: INSULIN ASPART [NOVOLOG] 3 ML PEN SC ×6 (07:50→20:43)
[2018-01-30] MEDS: CINACALCET 30 MG TAB PO (08:33)
[2018-01-30] MEDS: CALCIUM ACETATE 667 MG CAP PO ×3 (08:34→17:36)
[2018-01-30] MEDS: HYDROCORTISONE 5 MG TAB PO ×3 (08:34→20:38)
[2018-01-30] MEDS: SEVELAMER CARBONATE 800 MG TABLET PO ×3 (08:34→17:37)
[2018-01-30] MEDS: HEPARIN 5,000 UNIT/0.5 ML VIAL SC ×2 (08:38→20:41)
[2018-01-30] MEDS: NPH, HUMAN INSULIN ISOPHANE 3ML VIAL SC ×2 (08:39→20:42)
[2018-01-30] MEDS ORDERED: HYDROCORTISONE 5 MG TAB PO (09:00)
[2018-01-30] MEDS: HYDROmorphONE 2 MG TAB PO (16:27)
[2018-01-30] MEDS ORDERED: HYDROmorphONE 1 MG/ML SYG IV (16:30)
[2018-01-30] MEDS ORDERED: HYDROmorphONE 4 MG TAB PO (17:00)
[2018-01-30] MEDS: EPOETIN 10000 UNITS/1 ML INJ (ESRD) SC (17:39)
[2018-01-30] MEDS: INSULIN DETEMIR [LEVEMIR] (100 UNITS/ML) SYG SC (20:42)
[2018-01-31] MEDS: METOCLOPRAMIDE 10 MG INJ IV ×4 (00:13→18:00)
[2018-01-31] MEDS: ACCU-CHEK XX (02:03)
[2018-01-31] MEDS: DIPHENHYDRAMINE 50 MG INJ IV ×4 (02:05→19:49)
[2018-01-31 05:47] LABS: ADD MAN DIFF? NO
[2018-01-31 05:49] LABS: BASOPHILS % 0.5 % (0.0-2.0); EOSINOPHILS # 0.1 10^3/ul (0.0-0.5); EOSINOPHILS % 1.3 % (0.0-7.0); HEMATOCRIT 29.8 % (37.0-47.0); HEMOGLOBIN 9.4 g/dl (12.0-16.0); LYMPHOCYTES # 1.1 10^3/ul (0.8-2.9); LYMPHOCYTES % 13.9 % (15.0-51.0); MEAN CORPUSCULAR HEMOGLOBIN 33.7 pg (29.0-33.0); MEAN CORPUSCULAR HGB CONC 31.5 g/dl (32.0-37.0); MEAN CORPUSCULAR VOLUME 106.8 fl (82.0-101.0); MEAN PLATELET VOLUME 10.7 fl (7.4-10.4); MONOCYTE # 0.4 10^3/ul (0.3-0.9); MONOCYTES % 5.8 % (0.0-11.0); NEUTROPHIL # 5.9 10^3/ul (1.6-7.5); PLATELET COUNT 235 10^3/UL (140-415); RED BLOOD COUNT 2.79 10^6/ul (4.20-5.40); RED CELL DISTRIBUTION WIDTH 14.1 % (11.5-14.5)
[2018-01-31 05:49] LABS: WHITE BLOOD COUNT 7.6 10^3/ul (4.8-10.8)
[2018-01-31] MEDS: PANTOPRAZOLE 40 MG INJ IV (06:15)
[2018-01-31] MEDS: LEVOTHYROXINE 150 MCG TAB PO (06:16)
[2018-01-31 06:43] LABS: ANION GAP 23 (8-16); BLOOD UREA NITROGEN 46 mg/dl (7-20); CALCIUM 7.4 mg/dl (8.4-10.2); CARBON DIOXIDE 26 mmol/L (21-31); CHLORIDE 95 mmol/L (97-110); GLUCOSE 187 mg/dl (70-220); SODIUM 139 mmol/L (135-144)
[2018-01-31 06:58] LABS: CREATININE 15.91 mg/dl (0.44-1.00)
[2018-01-31] MEDS: HYDROmorphONE 2 MG TAB PO (07:30)
[2018-01-31] MEDS: INSULIN ASPART [NOVOLOG] 3 ML PEN SC ×6 (08:44→21:00)
[2018-01-31] MEDS: HEPARIN 5,000 UNIT/0.5 ML VIAL SC ×2 (08:44→21:38)
[2018-01-31] MEDS: HYDROCORTISONE 5 MG TAB PO ×3 (08:46→21:35)
[2018-01-31] MEDS: NPH, HUMAN INSULIN ISOPHANE 3ML VIAL SC ×2 (08:46→21:57)
[2018-01-31] MEDS: SEVELAMER CARBONATE 800 MG TABLET PO ×3 (08:47→21:35)
[2018-01-31] MEDS: CINACALCET 30 MG TAB PO (08:47)
[2018-01-31] MEDS: CALCIUM ACETATE 667 MG CAP PO ×3 (08:48→18:18)
[2018-01-31] MEDS: ONDANSETRON 4 MG INJ IV ×2 (09:59→21:46)
[2018-01-31] MEDS: DIAZEPAM 5 MG TAB PO ×2 (14:13→21:46)
[2018-01-31] MEDS: METOCLOPRAMIDE (1 MG/ML) 10 ML CUP PO (18:17)
[2018-01-31] MEDS: INSULIN DETEMIR [LEVEMIR] (100 UNITS/ML) SYG SC (21:57)
[2018-02-01] MEDS: DIPHENHYDRAMINE 50 MG INJ IV ×5 (00:25→20:32)
[2018-02-01] MEDS: METOCLOPRAMIDE 10 MG INJ IV ×4 (00:25→18:37)
[2018-02-01] MEDS: ACCU-CHEK XX (02:00)
[2018-02-01] MEDS: ONDANSETRON 4 MG INJ IV (04:15)
[2018-02-01 05:28] LABS: WHITE BLOOD COUNT 9.9 10^3/ul (4.8-10.8)
[2018-02-01 05:28] LABS: ADD MAN DIFF? NO; BASOPHIL # 0.1 10^3/ul (0.0-0.1); BASOPHILS % 0.7 % (0.0-2.0); EOSINOPHILS # 0.1 10^3/ul (0.0-0.5); EOSINOPHILS % 1.4 % (0.0-7.0); HEMATOCRIT 29.6 % (37.0-47.0); HEMOGLOBIN 9.3 g/dl (12.0-16.0); LYMPHOCYTES % 10.1 % (15.0-51.0); MEAN CORPUSCULAR HEMOGLOBIN 33.1 pg (29.0-33.0); MEAN CORPUSCULAR HGB CONC 31.4 g/dl (32.0-37.0); MEAN CORPUSCULAR VOLUME 105.3 fl (82.0-101.0); MEAN PLATELET VOLUME 10.5 fl (7.4-10.4); MONOCYTE # 0.6 10^3/ul (0.3-0.9); MONOCYTES % 5.6 % (0.0-11.0); NEUTROPHIL # 8.1 10^3/ul (1.6-7.5); NEUTROPHILS % 81.4 % (39.0-77.0); PLATELET COUNT 242 10^3/UL (140-415); RED BLOOD COUNT 2.81 10^6/ul (4.20-5.40); RED CELL DISTRIBUTION WIDTH 13.9 % (11.5-14.5)
[2018-02-01 06:03] LABS: ALANINE AMINOTRANSFERASE 34 IU/L (13-69); ALBUMIN 3.4 g/dl (3.3-4.9); ALBUMIN/GLOBULIN RATIO 1.06; ALKALINE PHOSPHATASE 173 IU/L (42-121); ANION GAP 20 (8-16); ASPARTATE AMINO TRANSFERASE 39 IU/L (15-46); BLOOD UREA NITROGEN 47 mg/dl (7-20); CALCIUM 7.4 mg/dl (8.4-10.2); CARBON DIOXIDE 29 mmol/L (21-31); CHLORIDE 92 mmol/L (97-110); GLUCOSE 199 mg/dl (70-220); POTASSIUM 5.1 mmol/L (3.5-5.1); SODIUM 136 mmol/L (135-144); TOTAL PROTEIN 6.6 g/dl (6.1-8.1)
[2018-02-01 06:10] LABS: CREATININE 15.51 mg/dl (0.44-1.00)
[2018-02-01] MEDS: PANTOPRAZOLE 40 MG INJ IV (06:30)
[2018-02-01] MEDS: DIAZEPAM 5 MG TAB PO ×3 (06:32→22:20)
[2018-02-01] MEDS: SEVELAMER CARBONATE 800 MG TABLET PO ×4 (07:50→18:37)
[2018-02-01] MEDS: LEVOTHYROXINE 150 MCG TAB PO (08:19)
[2018-02-01] MEDS: HYDROmorphONE 2 MG/ML SYG IV ×3 (08:20→18:52)
[2018-02-01] MEDS: INSULIN ASPART [NOVOLOG] 3 ML PEN SC ×6 (08:40→20:37)
[2018-02-01] MEDS: CALCIUM ACETATE 667 MG CAP PO ×3 (08:50→18:37)
[2018-02-01] MEDS: METOCLOPRAMIDE (1 MG/ML) 10 ML CUP PO ×3 (08:50→18:50)
[2018-02-01] MEDS: NPH, HUMAN INSULIN ISOPHANE 3ML VIAL SC ×2 (09:00→20:35)
[2018-02-01] MEDS: HEPARIN 5,000 UNIT/0.5 ML VIAL SC ×2 (11:03→20:36)
[2018-02-01] MEDS: HYDROCORTISONE 5 MG TAB PO ×3 (11:04→20:31)
[2018-02-01] MEDS: CINACALCET 30 MG TAB PO (11:06)
[2018-02-01] MEDS: HYDROmorphONE 2 MG TAB PO (12:06)
[2018-02-01] MEDS: EPOETIN 10000 UNITS/1 ML INJ (ESRD) SC (18:45)
[2018-02-01] MEDS: INSULIN DETEMIR [LEVEMIR] (100 UNITS/ML) SYG SC (20:36)
[2018-02-02] MEDS: METOCLOPRAMIDE 10 MG INJ IV ×4 (00:33→17:55)
[2018-02-02] MEDS: DIPHENHYDRAMINE 50 MG INJ IV ×6 (00:33→23:10)
[2018-02-02] MEDS: ACCU-CHEK XX (02:00)
[2018-02-02 05:51] LABS: ADD MAN DIFF? NO; BASOPHIL # 0.1 10^3/ul (0.0-0.1); BASOPHILS % 0.7 % (0.0-2.0); EOSINOPHILS # 0.2 10^3/ul (0.0-0.5); EOSINOPHILS % 1.5 % (0.0-7.0); HEMATOCRIT 29.3 % (37.0-47.0); HEMOGLOBIN 9.3 g/dl (12.0-16.0); LYMPHOCYTES # 1.3 10^3/ul (0.8-2.9); LYMPHOCYTES % 12.3 % (15.0-51.0); MEAN CORPUSCULAR HEMOGLOBIN 33.9 pg (29.0-33.0); MEAN CORPUSCULAR HGB CONC 31.7 g/dl (32.0-37.0); MEAN CORPUSCULAR VOLUME 106.9 fl (82.0-101.0); MEAN PLATELET VOLUME 10.6 fl (7.4-10.4); MONOCYTE # 0.6 10^3/ul (0.3-0.9); MONOCYTES % 5.8 % (0.0-11.0); NEUTROPHILS % 78.7 % (39.0-77.0); PLATELET COUNT 221 10^3/UL (140-415); RED BLOOD COUNT 2.74 10^6/ul (4.20-5.40); RED CELL DISTRIBUTION WIDTH 14.1 % (11.5-14.5)
[2018-02-02 05:51] LABS: WHITE BLOOD COUNT 10.2 10^3/ul (4.8-10.8)
[2018-02-02] MEDS: PANTOPRAZOLE 40 MG INJ IV (06:27)
[2018-02-02] MEDS: LEVOTHYROXINE 150 MCG TAB PO (06:28)
[2018-02-02] MEDS: HYDROmorphONE 2 MG/ML SYG IV ×4 (06:28→23:10)
[2018-02-02] MEDS: DIAZEPAM 5 MG TAB PO ×3 (06:28→21:17)
[2018-02-02 06:38] LABS: ANION GAP 18 (8-16); BLOOD UREA NITROGEN 51 mg/dl (7-20); CALCIUM 7.5 mg/dl (8.4-10.2); CARBON DIOXIDE 26 mmol/L (21-31); CHLORIDE 97 mmol/L (97-110); GLUCOSE 194 mg/dl (70-220); MAGNESIUM 2.3 mg/dl (1.7-2.5); PHOSPHORUS 6.2 mg/dl (2.5-4.9); POTASSIUM 5.4 mmol/L (3.5-5.1); SODIUM 136 mmol/L (135-144)
[2018-02-02 06:51] LABS: CREATININE 15.05 mg/dl (0.44-1.00)
[2018-02-02] MEDS: METOCLOPRAMIDE (1 MG/ML) 10 ML CUP PO ×3 (08:11→17:55)
[2018-02-02] MEDS: HYDROCORTISONE 5 MG TAB PO ×3 (08:12→20:55)
[2018-02-02] MEDS: SEVELAMER CARBONATE 800 MG TABLET PO ×3 (08:12→17:54)
[2018-02-02] MEDS: CALCIUM ACETATE 667 MG CAP PO ×3 (08:12→17:54)
[2018-02-02] MEDS: NPH, HUMAN INSULIN ISOPHANE 3ML VIAL SC ×2 (08:19→20:54)
[2018-02-02] MEDS: INSULIN ASPART [NOVOLOG] 3 ML PEN SC ×6 (08:19→21:00)
[2018-02-02] MEDS: HEPARIN 5,000 UNIT/0.5 ML VIAL SC ×2 (08:19→20:49)
[2018-02-02] MEDS: CINACALCET 30 MG TAB PO (09:00)
[2018-02-02 14:00] LABS: ANION GAP 22 (8-16); BLOOD UREA NITROGEN 49 mg/dl (7-20); CARBON DIOXIDE 26 mmol/L (21-31); CHLORIDE 96 mmol/L (97-110); POTASSIUM 4.5 mmol/L (3.5-5.1); SODIUM 139 mmol/L (135-144)
[2018-02-02 14:06] LABS: GLUCOSE 45 mg/dl (70-220)
[2018-02-02 14:09] LABS: GLUCOSE 47 mg/dl (70-220)
[2018-02-02 14:10] LABS: CREATININE 14.76 mg/dl (0.44-1.00)
[2018-02-02] MEDS: INSULIN DETEMIR [LEVEMIR] (100 UNITS/ML) SYG SC (20:53)
[2018-02-03] MEDS: ACCU-CHEK XX (01:47)
[2018-02-03] MEDS: METOCLOPRAMIDE 10 MG INJ IV ×6 (02:41→23:12)
[2018-02-03] MEDS: DIPHENHYDRAMINE 50 MG INJ IV ×5 (04:11→23:13)
[2018-02-03 05:55] LABS: ADD MAN DIFF? NO
[2018-02-03] MEDS: DIAZEPAM 5 MG TAB PO ×3 (06:00→21:25)
[2018-02-03 06:07] LABS: BASOPHIL # 0.1 10^3/ul (0.0-0.1); BASOPHILS % 0.5 % (0.0-2.0); EOSINOPHILS # 0.2 10^3/ul (0.0-0.5); EOSINOPHILS % 1.6 % (0.0-7.0); HEMATOCRIT 29.4 % (37.0-47.0); HEMOGLOBIN 9.2 g/dl (12.0-16.0); LYMPHOCYTES # 1.1 10^3/ul (0.8-2.9); LYMPHOCYTES % 7.9 % (15.0-51.0); MEAN CORPUSCULAR HEMOGLOBIN 34.2 pg (29.0-33.0); MEAN CORPUSCULAR HGB CONC 31.3 g/dl (32.0-37.0); MEAN CORPUSCULAR VOLUME 109.3 fl (82.0-101.0); MEAN PLATELET VOLUME 10.7 fl (7.4-10.4); MONOCYTE # 0.7 10^3/ul (0.3-0.9); MONOCYTES % 5.1 % (0.0-11.0); NEUTROPHIL # 11.8 10^3/ul (1.6-7.5); NUCLEATED RED BLOOD CELLS% 0.1 /100WBC (0.0-0.0); PLATELET COUNT 232 10^3/UL (140-415); RED BLOOD COUNT 2.69 10^6/ul (4.20-5.40); RED CELL DISTRIBUTION WIDTH 14.1 % (11.5-14.5)
[2018-02-03 06:07] LABS: WHITE BLOOD COUNT 14.1 10^3/ul (4.8-10.8)
[2018-02-03] MEDS: PANTOPRAZOLE 40 MG INJ IV (06:20)
[2018-02-03] MEDS: LEVOTHYROXINE 150 MCG TAB PO (06:21)
[2018-02-03 07:08] LABS: ANION GAP 18 (8-16); BLOOD UREA NITROGEN 50 mg/dl (7-20); CALCIUM 7.9 mg/dl (8.4-10.2); CARBON DIOXIDE 28 mmol/L (21-31); CHLORIDE 95 mmol/L (97-110); GLUCOSE 157 mg/dl (70-220); MAGNESIUM 2.2 mg/dl (1.7-2.5); PHOSPHORUS 5.6 mg/dl (2.5-4.9); POTASSIUM 5.3 mmol/L (3.5-5.1); SODIUM 136 mmol/L (135-144)
[2018-02-03 07:52] LABS: CREATININE 13.56 mg/dl (0.44-1.00)
[2018-02-03] MEDS: METOCLOPRAMIDE (1 MG/ML) 10 ML CUP PO (08:23)
[2018-02-03] MEDS: CALCIUM ACETATE 667 MG CAP PO ×3 (08:24→17:58)
[2018-02-03] MEDS: SEVELAMER CARBONATE 800 MG TABLET PO ×3 (08:24→17:59)
[2018-02-03] MEDS: INSULIN ASPART [NOVOLOG] 3 ML PEN SC ×6 (08:29→21:00)
[2018-02-03] MEDS: HEPARIN 5,000 UNIT/0.5 ML VIAL SC ×2 (08:30→21:20)
[2018-02-03] MEDS: HYDROCORTISONE 5 MG TAB PO ×3 (08:31→21:17)
[2018-02-03] MEDS: NPH, HUMAN INSULIN ISOPHANE 3ML VIAL SC ×2 (08:31→21:22)
[2018-02-03] MEDS: CINACALCET 30 MG TAB PO (08:31)
[2018-02-03] MEDS: HYDROmorphONE 2 MG/ML SYG IV ×3 (10:30→23:13)
[2018-02-03 14:52] LABS: ANION GAP 19 (8-16); BLOOD UREA NITROGEN 51 mg/dl (7-20); CARBON DIOXIDE 28 mmol/L (21-31); CHLORIDE 94 mmol/L (97-110); GLUCOSE 115 mg/dl (70-220); POTASSIUM 4.7 mmol/L (3.5-5.1); SODIUM 136 mmol/L (135-144)
[2018-02-03 15:02] LABS: CREATININE 13.94 mg/dl (0.44-1.00)
[2018-02-03] MEDS: INSULIN DETEMIR [LEVEMIR] (100 UNITS/ML) SYG SC (21:23)
[2018-02-04] MEDS: ACCU-CHEK XX (00:28)
[2018-02-04] MEDS: DIPHENHYDRAMINE 50 MG INJ IV ×5 (04:04→21:36)
[2018-02-04] MEDS: HYDROmorphONE 2 MG/ML SYG IV ×5 (04:05→21:40)
[2018-02-04] MEDS: PANTOPRAZOLE 40 MG INJ IV (05:57)
[2018-02-04 05:58] LABS: ADD MAN DIFF? NO
[2018-02-04] MEDS: METOCLOPRAMIDE 10 MG INJ IV ×4 (05:58→23:40)
[2018-02-04] MEDS: DIAZEPAM 5 MG TAB PO ×3 (05:58→22:10)
[2018-02-04 06:06] LABS: WHITE BLOOD COUNT 11.7 10^3/ul (4.8-10.8)
[2018-02-04 06:06] LABS: BASOPHIL # 0.1 10^3/ul (0.0-0.1); BASOPHILS % 0.4 % (0.0-2.0); EOSINOPHILS # 0.3 10^3/ul (0.0-0.5); EOSINOPHILS % 2.1 % (0.0-7.0); HEMATOCRIT 33.4 % (37.0-47.0); HEMOGLOBIN 10.5 g/dl (12.0-16.0); LYMPHOCYTES # 0.9 10^3/ul (0.8-2.9); LYMPHOCYTES % 7.4 % (15.0-51.0); MEAN CORPUSCULAR HEMOGLOBIN 34.3 pg (29.0-33.0); MEAN CORPUSCULAR HGB CONC 31.4 g/dl (32.0-37.0); MEAN CORPUSCULAR VOLUME 109.2 fl (82.0-101.0); MEAN PLATELET VOLUME 10.8 fl (7.4-10.4); MONOCYTE # 0.6 10^3/ul (0.3-0.9); MONOCYTES % 4.7 % (0.0-11.0); NEUTROPHIL # 9.9 10^3/ul (1.6-7.5); NEUTROPHILS % 84.4 % (39.0-77.0); PLATELET COUNT 217 10^3/UL (140-415); RED BLOOD COUNT 3.06 10^6/ul (4.20-5.40); RED CELL DISTRIBUTION WIDTH 14.2 % (11.5-14.5)
[2018-02-04] MEDS: LEVOTHYROXINE 150 MCG TAB PO (06:08)
[2018-02-04 06:54] LABS: ANION GAP 17 (8-16); BLOOD UREA NITROGEN 53 mg/dl (7-20); CALCIUM 8.2 mg/dl (8.4-10.2); CARBON DIOXIDE 26 mmol/L (21-31); CHLORIDE 97 mmol/L (97-110); GLUCOSE 160 mg/dl (70-220); MAGNESIUM 2.2 mg/dl (1.7-2.5); PHOSPHORUS 5.8 mg/dl (2.5-4.9); POTASSIUM 4.9 mmol/L (3.5-5.1); SODIUM 135 mmol/L (135-144)
[2018-02-04] MEDS: INSULIN ASPART [NOVOLOG] 3 ML PEN SC ×6 (07:50→20:29)
[2018-02-04] MEDS: CALCIUM ACETATE 667 MG CAP PO ×3 (08:10→17:28)
[2018-02-04] MEDS: SEVELAMER CARBONATE 800 MG TABLET PO ×3 (08:10→17:28)
[2018-02-04] MEDS: CINACALCET 30 MG TAB PO (08:10)
[2018-02-04] MEDS: HYDROCORTISONE 5 MG TAB PO ×3 (08:10→20:30)
[2018-02-04] MEDS: HEPARIN 5,000 UNIT/0.5 ML VIAL SC ×2 (08:17→20:32)
[2018-02-04] MEDS: NPH, HUMAN INSULIN ISOPHANE 3ML VIAL SC ×2 (08:57→20:34)
[2018-02-04 09:34] LABS: CREATININE 13.17 mg/dl (0.44-1.00)
[2018-02-04] MEDS ORDERED: GLUCOSE GEL 15 GRAM TUBE (13:18)
[2018-02-04] MEDS: GLUCOSE GEL 24 GRAMS PO (13:22)
[2018-02-04 13:36] LABS: GLUCOSE 58 mg/dl (70-220)
[2018-02-04] MEDS: GLUCOSE GEL 15 GRAM TUBE PO (13:58)
[2018-02-04] MEDS: EPOETIN 10000 UNITS/1 ML INJ (ESRD) SC (18:49)
[2018-02-04] MEDS: INSULIN DETEMIR [LEVEMIR] (100 UNITS/ML) SYG SC (20:34)
[2018-02-05] MEDS: ACCU-CHEK XX (01:33)
[2018-02-05] MEDS: DIPHENHYDRAMINE 50 MG INJ IV ×6 (01:37→22:13)
[2018-02-05] MEDS: HYDROmorphONE 2 MG/ML SYG IV ×6 (01:38→22:14)
[2018-02-05] MEDS: ONDANSETRON 4 MG INJ IV (04:12)
[2018-02-05] MEDS: PANTOPRAZOLE 40 MG INJ IV (05:21)
[2018-02-05] MEDS: METOCLOPRAMIDE 10 MG INJ IV ×3 (05:21→17:47)
[2018-02-05] MEDS: LEVOTHYROXINE 150 MCG TAB PO (06:01)
[2018-02-05] MEDS: DIAZEPAM 5 MG TAB PO ×3 (06:07→22:19)
[2018-02-05] MEDS: CINACALCET 30 MG TAB PO (08:12)
[2018-02-05] MEDS: CALCIUM ACETATE 667 MG CAP PO ×3 (08:12→17:47)
[2018-02-05] MEDS: SEVELAMER CARBONATE 800 MG TABLET PO ×3 (08:13→17:46)
[2018-02-05] MEDS: HYDROCORTISONE 5 MG TAB PO ×3 (08:13→22:18)
[2018-02-05] MEDS: INSULIN ASPART [NOVOLOG] 3 ML PEN SC ×6 (08:16→22:40)
[2018-02-05] MEDS: HEPARIN 5,000 UNIT/0.5 ML VIAL SC ×2 (08:20→22:23)
[2018-02-05] MEDS: NPH, HUMAN INSULIN ISOPHANE 3ML VIAL SC ×2 (08:20→22:38)
[2018-02-05] MEDS: INSULIN DETEMIR [LEVEMIR] (100 UNITS/ML) SYG SC (22:39)
[2018-02-06] MEDS: METOCLOPRAMIDE 10 MG INJ IV ×4 (00:03→18:13)
[2018-02-06] MEDS: ACCU-CHEK XX (02:14)
[2018-02-06] MEDS: INSULIN ASPART [NOVOLOG] 3 ML PEN SC ×7 (02:20→21:00)
[2018-02-06] MEDS: HYDROmorphONE 2 MG/ML SYG IV ×5 (02:22→19:57)
[2018-02-06] MEDS: DIPHENHYDRAMINE 50 MG INJ IV ×5 (02:22→21:32)
[2018-02-06] MEDS: PANTOPRAZOLE 40 MG INJ IV (05:32)
[2018-02-06] MEDS: LEVOTHYROXINE 150 MCG TAB PO (05:36)
[2018-02-06] MEDS: DIAZEPAM 5 MG TAB PO ×3 (07:11→21:46)
[2018-02-06] MEDS: CINACALCET 30 MG TAB PO (08:29)
[2018-02-06] MEDS: HEPARIN 5,000 UNIT/0.5 ML VIAL SC ×2 (08:31→21:56)
[2018-02-06] MEDS: CALCIUM ACETATE 667 MG CAP PO ×3 (08:31→18:14)
[2018-02-06] MEDS: HYDROCORTISONE 5 MG TAB PO ×3 (08:31→21:44)
[2018-02-06] MEDS: SEVELAMER CARBONATE 800 MG TABLET PO ×3 (08:32→18:13)
[2018-02-06] MEDS: NPH, HUMAN INSULIN ISOPHANE 3ML VIAL SC ×2 (08:32→21:57)
[2018-02-06] MEDS: EPOETIN 10000 UNITS/1 ML INJ (ESRD) SC (20:15)
[2018-02-06] MEDS: INSULIN DETEMIR [LEVEMIR] (100 UNITS/ML) SYG SC (22:23)
[2018-02-07] MEDS: METOCLOPRAMIDE 10 MG INJ IV ×4 (01:33→17:57)
[2018-02-07] MEDS: ACCU-CHEK XX (02:00)
[2018-02-07] MEDS: DIPHENHYDRAMINE 50 MG INJ IV ×5 (04:04→20:28)
[2018-02-07] MEDS: HYDROmorphONE 2 MG/ML SYG IV ×5 (04:04→20:28)
[2018-02-07 05:35] LABS: ADD MAN DIFF? NO
[2018-02-07 05:40] LABS: BASOPHIL # 0.1 10^3/ul (0.0-0.1); BASOPHILS % 0.5 % (0.0-2.0); EOSINOPHILS # 0.3 10^3/ul (0.0-0.5); EOSINOPHILS % 2.3 % (0.0-7.0); HEMATOCRIT 31.4 % (37.0-47.0); HEMOGLOBIN 9.8 g/dl (12.0-16.0); LYMPHOCYTES % 9.3 % (15.0-51.0); MEAN CORPUSCULAR HEMOGLOBIN 33.9 pg (29.0-33.0); MEAN CORPUSCULAR HGB CONC 31.2 g/dl (32.0-37.0); MEAN CORPUSCULAR VOLUME 108.7 fl (82.0-101.0); MEAN PLATELET VOLUME 10.6 fl (7.4-10.4); MONOCYTE # 0.4 10^3/ul (0.3-0.9); MONOCYTES % 4.1 % (0.0-11.0); NEUTROPHIL # 8.9 10^3/ul (1.6-7.5); NEUTROPHILS % 82.6 % (39.0-77.0); PLATELET COUNT 239 10^3/UL (140-415); RED BLOOD COUNT 2.89 10^6/ul (4.20-5.40); RED CELL DISTRIBUTION WIDTH 14.2 % (11.5-14.5)
[2018-02-07 05:40] LABS: WHITE BLOOD COUNT 10.8 10^3/ul (4.8-10.8)
[2018-02-07] MEDS: PANTOPRAZOLE 40 MG INJ IV (05:52)
[2018-02-07] MEDS: LEVOTHYROXINE 150 MCG TAB PO (05:53)
[2018-02-07] MEDS: DIAZEPAM 5 MG TAB PO ×3 (05:53→22:25)
[2018-02-07 06:22] LABS: ALANINE AMINOTRANSFERASE 47 IU/L (13-69); ALBUMIN 3.3 g/dl (3.3-4.9); ALBUMIN/GLOBULIN RATIO 1.06; ALKALINE PHOSPHATASE 213 IU/L (42-121); ANION GAP 17 (8-16); ASPARTATE AMINO TRANSFERASE 49 IU/L (15-46); BLOOD UREA NITROGEN 53 mg/dl (7-20); CALCIUM 8.4 mg/dl (8.4-10.2); CARBON DIOXIDE 26 mmol/L (21-31); CHLORIDE 98 mmol/L (97-110); GLUCOSE 176 mg/dl (70-220); POTASSIUM 4.6 mmol/L (3.5-5.1); SODIUM 136 mmol/L (135-144); TOTAL PROTEIN 6.4 g/dl (6.1-8.1)
[2018-02-07 06:30] LABS: CREATININE 13.05 mg/dl (0.44-1.00)
[2018-02-07 06:42] LABS: PHOSPHORUS 4.3 mg/dl (2.5-4.9)
[2018-02-07 06:42] LABS: MAGNESIUM 2.2 mg/dl (1.7-2.5)
[2018-02-07] MEDS: INSULIN ASPART [NOVOLOG] 3 ML PEN SC ×6 (07:50→20:36)
[2018-02-07] MEDS: CALCIUM ACETATE 667 MG CAP PO ×3 (09:01→17:56)
[2018-02-07] MEDS: NPH, HUMAN INSULIN ISOPHANE 3ML VIAL SC ×2 (09:44→20:32)
[2018-02-07] MEDS: HEPARIN 5,000 UNIT/0.5 ML VIAL SC ×2 (09:47→20:35)
[2018-02-07] MEDS: CINACALCET 30 MG TAB PO (09:49)
[2018-02-07] MEDS: HYDROCORTISONE 5 MG TAB PO ×3 (09:50→22:29)
[2018-02-07] MEDS: SEVELAMER CARBONATE 800 MG TABLET PO ×3 (09:50→17:56)
[2018-02-07] MEDS: INSULIN DETEMIR [LEVEMIR] (100 UNITS/ML) SYG SC (20:33)
[2018-02-08] MEDS: HYDROmorphONE 2 MG/ML SYG IV ×4 (00:28→21:12)
[2018-02-08] MEDS: DIPHENHYDRAMINE 50 MG INJ IV ×4 (00:28→21:12)
[2018-02-08] MEDS: METOCLOPRAMIDE 10 MG INJ IV ×4 (00:28→17:48)
[2018-02-08] MEDS: ACCU-CHEK XX (02:20)
[2018-02-08] MEDS: INSULIN ASPART [NOVOLOG] 3 ML PEN SC ×7 (02:47→21:00)
[2018-02-08] MEDS: LEVOTHYROXINE 150 MCG TAB PO (06:37)
[2018-02-08] MEDS: DIAZEPAM 5 MG TAB PO ×3 (06:37→22:45)
[2018-02-08] MEDS: PANTOPRAZOLE 40 MG INJ IV (06:37)
[2018-02-08] MEDS ORDERED: GLUCOSE GEL 15 GRAM TUBE ×2 (08:08→09:14)
[2018-02-08] MEDS: CINACALCET 30 MG TAB PO (08:42)
[2018-02-08] MEDS: SEVELAMER CARBONATE 800 MG TABLET PO ×3 (08:43→17:47)
[2018-02-08] MEDS: HYDROCORTISONE 5 MG TAB PO ×3 (08:43→21:11)
[2018-02-08] MEDS: CALCIUM ACETATE 667 MG CAP PO ×3 (08:43→17:47)
[2018-02-08] MEDS ORDERED: DEXTROSE 50% 50 ML SYRINGE IV (09:30)
[2018-02-08] MEDS ORDERED: GLUCOSE GEL 15 GRAM TUBE PO ×2 (09:30)
[2018-02-08] MEDS ORDERED: GLUCAGON 1 MG INJ IM (09:30)
[2018-02-08] MEDS: GLUCOSE GEL 15 GRAM TUBE BUCCAL (09:32)
[2018-02-08] MEDS: HEPARIN 5,000 UNIT/0.5 ML VIAL SC ×2 (09:36→21:14)
[2018-02-08] MEDS: DEXTROSE 50% 50 ML SYRINGE IV (10:18)
[2018-02-08] MEDS: NPH, HUMAN INSULIN ISOPHANE 3ML VIAL SC (10:45)
[2018-02-08 10:52] LABS: GLUCOSE 51 mg/dl (70-220)
[2018-02-08] MEDS: EPOETIN 10000 UNITS/1 ML INJ (ESRD) SC (18:06)
[2018-02-08] MEDS: INSULIN DETEMIR [LEVEMIR] (100 UNITS/ML) SYG SC (21:15)
[2018-02-09] MEDS: METOCLOPRAMIDE 10 MG INJ IV ×4 (00:26→17:50)
[2018-02-09] MEDS: HYDROmorphONE 2 MG/ML SYG IV ×5 (01:32→20:23)
[2018-02-09] MEDS: DIPHENHYDRAMINE 50 MG INJ IV ×5 (01:32→20:24)
[2018-02-09] MEDS: ACCU-CHEK XX (01:32)
[2018-02-09] MEDS: PANTOPRAZOLE 40 MG INJ IV (05:39)
[2018-02-09] MEDS: DIAZEPAM 5 MG TAB PO ×3 (06:29→21:30)
[2018-02-09] MEDS: LEVOTHYROXINE 150 MCG TAB PO (06:29)
[2018-02-09] MEDS: SEVELAMER CARBONATE 800 MG TABLET PO ×3 (08:12→17:50)
[2018-02-09] MEDS: CALCIUM ACETATE 667 MG CAP PO ×3 (08:12→17:49)
[2018-02-09] MEDS: INSULIN ASPART [NOVOLOG] 3 ML PEN SC ×7 (08:15→22:11)
[2018-02-09] MEDS: HYDROCORTISONE 5 MG TAB PO ×3 (08:48→21:30)
[2018-02-09] MEDS: CINACALCET 30 MG TAB PO (08:49)
[2018-02-09] MEDS: HEPARIN 5,000 UNIT/0.5 ML VIAL SC ×2 (08:51→21:25)
[2018-02-09] MEDS: INSULIN DETEMIR [LEVEMIR] (100 UNITS/ML) SYG SC (21:24)
[2018-02-10] MEDS: METOCLOPRAMIDE 10 MG INJ IV ×5 (00:30→23:15)
[2018-02-10] MEDS: DIPHENHYDRAMINE 50 MG INJ IV ×5 (00:33→21:34)
[2018-02-10] MEDS: HYDROmorphONE 2 MG/ML SYG IV ×5 (00:34→21:36)
[2018-02-10] MEDS: ACCU-CHEK XX (02:05)
[2018-02-10] MEDS: DIAZEPAM 5 MG TAB PO ×3 (05:33→23:15)
[2018-02-10] MEDS: PANTOPRAZOLE 40 MG INJ IV (05:42)
[2018-02-10] MEDS: LEVOTHYROXINE 150 MCG TAB PO (05:45)
[2018-02-10 05:49] LABS: ADD MAN DIFF? NO
[2018-02-10 05:52] LABS: WHITE BLOOD COUNT 10.4 10^3/ul (4.8-10.8)
[2018-02-10 05:52] LABS: BASOPHIL # 0.1 10^3/ul (0.0-0.1); BASOPHILS % 0.7 % (0.0-2.0); EOSINOPHILS # 0.2 10^3/ul (0.0-0.5); EOSINOPHILS % 1.7 % (0.0-7.0); HEMATOCRIT 31.4 % (37.0-47.0); HEMOGLOBIN 9.5 g/dl (12.0-16.0); LYMPHOCYTES # 1.2 10^3/ul (0.8-2.9); LYMPHOCYTES % 11.3 % (15.0-51.0); MEAN CORPUSCULAR HEMOGLOBIN 33.1 pg (29.0-33.0); MEAN CORPUSCULAR HGB CONC 30.3 g/dl (32.0-37.0); MEAN CORPUSCULAR VOLUME 109.4 fl (82.0-101.0); MEAN PLATELET VOLUME 10.7 fl (7.4-10.4); MONOCYTE # 0.6 10^3/ul (0.3-0.9); MONOCYTES % 5.4 % (0.0-11.0); NEUTROPHIL # 8.1 10^3/ul (1.6-7.5); NEUTROPHILS % 77.6 % (39.0-77.0); NUCLEATED RED BLOOD CELLS% 0.2 /100WBC (0.0-0.0); PLATELET COUNT 224 10^3/UL (140-415); RED BLOOD COUNT 2.87 10^6/ul (4.20-5.40); RED CELL DISTRIBUTION WIDTH 14.6 % (11.5-14.5)
[2018-02-10 06:28] LABS: ANION GAP 17 (8-16); BLOOD UREA NITROGEN 57 mg/dl (7-20); CALCIUM 8.4 mg/dl (8.4-10.2); CARBON DIOXIDE 29 mmol/L (21-31); CHLORIDE 98 mmol/L (97-110); GLUCOSE 231 mg/dl (70-220); SODIUM 139 mmol/L (135-144)
[2018-02-10 07:14] LABS: CREATININE 12.49 mg/dl (0.44-1.00)
[2018-02-10 07:19] LABS: POTASSIUM 5.3 mmol/L (3.5-5.1)
[2018-02-10] MEDS: INSULIN ASPART [NOVOLOG] 3 ML PEN SC ×6 (08:45→21:31)
[2018-02-10] MEDS: HEPARIN 5,000 UNIT/0.5 ML VIAL SC ×2 (08:46→21:01)
[2018-02-10] MEDS: CALCIUM ACETATE 667 MG CAP PO ×3 (08:47→17:39)
[2018-02-10] MEDS: HYDROCORTISONE 5 MG TAB PO ×3 (08:47→20:59)
[2018-02-10] MEDS: CINACALCET 30 MG TAB PO (08:47)
[2018-02-10] MEDS: SEVELAMER CARBONATE 800 MG TABLET PO ×3 (09:06→17:39)
[2018-02-10] MEDS ORDERED: HEPARIN 1000 UNITS/ML 10 ML INJ CATHETER (16:30)
[2018-02-10] MEDS: HEPARIN IV (17:52)
[2018-02-10] MEDS: INSULIN DETEMIR [LEVEMIR] (100 UNITS/ML) SYG SC (21:30)
[2018-02-11] MEDS: DIPHENHYDRAMINE 50 MG INJ IV ×4 (01:48→20:50)
[2018-02-11] MEDS: HYDROmorphONE 2 MG/ML SYG IV ×5 (01:48→20:50)
[2018-02-11] MEDS: ACCU-CHEK XX (01:49)
[2018-02-11 02:54] LABS: GLUCOSE 424 mg/dl (70-220)
[2018-02-11] MEDS: PANTOPRAZOLE 40 MG INJ IV (05:23)
[2018-02-11] MEDS: METOCLOPRAMIDE 10 MG INJ IV ×3 (05:23→17:28)
[2018-02-11 06:06] LABS: ANION GAP 17 (8-16); BLOOD UREA NITROGEN 52 mg/dl (7-20); CALCIUM 8.3 mg/dl (8.4-10.2); CARBON DIOXIDE 27 mmol/L (21-31); CHLORIDE 98 mmol/L (97-110); GLUCOSE 364 mg/dl (70-220); MAGNESIUM 2.3 mg/dl (1.7-2.5); SODIUM 137 mmol/L (135-144)
[2018-02-11 06:08] LABS: ALANINE AMINOTRANSFERASE 32 IU/L (13-69); ALBUMIN 3.3 g/dl (3.3-4.9); ALKALINE PHOSPHATASE 246 IU/L (42-121); ASPARTATE AMINO TRANSFERASE 23 IU/L (15-46); TOTAL PROTEIN 6.2 g/dl (6.1-8.1)
[2018-02-11 06:14] LABS: CREATININE 12.03 mg/dl (0.44-1.00)
[2018-02-11] MEDS: LEVOTHYROXINE 150 MCG TAB PO (06:30)
[2018-02-11] MEDS: DIAZEPAM 5 MG TAB PO ×3 (06:31→21:38)
[2018-02-11] MEDS: SEVELAMER CARBONATE 800 MG TABLET PO ×3 (08:11→17:29)
[2018-02-11] MEDS: CALCIUM ACETATE 667 MG CAP PO ×3 (08:11→17:29)
[2018-02-11] MEDS: HYDROCORTISONE 5 MG TAB PO ×3 (08:11→20:41)
[2018-02-11] MEDS: INSULIN ASPART [NOVOLOG] 3 ML PEN SC ×7 (08:18→20:44)
[2018-02-11] MEDS: HEPARIN 5,000 UNIT/0.5 ML VIAL SC ×2 (08:20→20:40)
[2018-02-11] MEDS: CINACALCET 30 MG TAB PO (08:35)
[2018-02-11] MEDS: EPOETIN 10000 UNITS/1 ML INJ (ESRD) SC (17:31)
[2018-02-11] MEDS: INSULIN DETEMIR [LEVEMIR] (100 UNITS/ML) SYG SC (20:41)
[2018-02-12] MEDS: METOCLOPRAMIDE 10 MG INJ IV ×5 (00:02→23:52)
[2018-02-12] MEDS: ACCU-CHEK XX (02:25)
[2018-02-12] MEDS: DIPHENHYDRAMINE 50 MG INJ IV ×5 (02:36→22:10)
[2018-02-12] MEDS: HYDROmorphONE 2 MG/ML SYG IV ×5 (02:38→22:11)
[2018-02-12] MEDS: ONDANSETRON 4 MG INJ IV (04:54)
[2018-02-12] MEDS: PANTOPRAZOLE 40 MG INJ IV (06:22)
[2018-02-12] MEDS: LEVOTHYROXINE 150 MCG TAB PO (06:22)
[2018-02-12] MEDS: DIAZEPAM 5 MG TAB PO ×3 (06:22→21:26)
[2018-02-12] MEDS: CINACALCET 30 MG TAB PO (08:40)
[2018-02-12] MEDS: HYDROCORTISONE 5 MG TAB PO ×3 (08:41→20:58)
[2018-02-12] MEDS: SEVELAMER CARBONATE 800 MG TABLET PO ×3 (08:41→17:21)
[2018-02-12] MEDS: CALCIUM ACETATE 667 MG CAP PO ×3 (08:41→17:21)
[2018-02-12] MEDS: INSULIN ASPART [NOVOLOG] 3 ML PEN SC ×7 (08:48→21:08)
[2018-02-12] MEDS: HEPARIN 5,000 UNIT/0.5 ML VIAL SC ×2 (08:49→21:07)
[2018-02-12] MEDS: NPH, HUMAN INSULIN ISOPHANE 3ML VIAL SC (17:39)
[2018-02-12] MEDS: INSULIN DETEMIR [LEVEMIR] (100 UNITS/ML) SYG SC (21:09)
[2018-02-13] MEDS: ACCU-CHEK XX (02:20)
[2018-02-13] MEDS: HYDROmorphONE 2 MG/ML SYG IV ×5 (02:54→20:05)
[2018-02-13] MEDS: INSULIN ASPART [NOVOLOG] 3 ML PEN SC ×8 (03:13→20:49)
[2018-02-13] MEDS: DIPHENHYDRAMINE 50 MG INJ IV ×6 (03:17→20:05)
[2018-02-13 05:29] LABS: ALANINE AMINOTRANSFERASE 22 IU/L (13-69); ALBUMIN 3.4 g/dl (3.3-4.9); ALKALINE PHOSPHATASE 286 IU/L (42-121); ASPARTATE AMINO TRANSFERASE 22 IU/L (15-46); TOTAL PROTEIN 6.7 g/dl (6.1-8.1)
[2018-02-13] MEDS: LEVOTHYROXINE 150 MCG TAB PO (06:18)
[2018-02-13] MEDS: PANTOPRAZOLE 40 MG INJ IV (06:19)
[2018-02-13] MEDS: METOCLOPRAMIDE 10 MG INJ IV ×3 (06:27→18:56)
[2018-02-13] MEDS: DIAZEPAM 5 MG TAB PO ×3 (06:27→21:05)
[2018-02-13] MEDS: CALCIUM ACETATE 667 MG CAP PO ×3 (07:38→18:41)
[2018-02-13] MEDS: SEVELAMER CARBONATE 800 MG TABLET PO ×3 (07:38→18:40)
[2018-02-13] MEDS: HYDROCORTISONE 5 MG TAB PO ×3 (10:42→20:44)
[2018-02-13] MEDS: HEPARIN 5,000 UNIT/0.5 ML VIAL SC (10:49)
[2018-02-13] MEDS: CINACALCET 30 MG TAB PO (10:50)
[2018-02-13] MEDS: GLUCOSE GEL 15 GRAM TUBE BUCCAL (13:26)
[2018-02-13] MEDS: EPOETIN 10000 UNITS/1 ML INJ (ESRD) SC (18:52)
[2018-02-13] MEDS: NPH, HUMAN INSULIN ISOPHANE 3ML VIAL SC (20:48)
[2018-02-13] MEDS: INSULIN DETEMIR [LEVEMIR] (100 UNITS/ML) SYG SC (20:50)
[2018-02-14] MEDS: DIPHENHYDRAMINE 50 MG INJ IV ×5 (00:03→20:58)
[2018-02-14] MEDS: HYDROmorphONE 2 MG/ML SYG IV ×6 (00:06→20:58)
[2018-02-14] MEDS: METOCLOPRAMIDE 10 MG INJ IV ×4 (00:08→18:10)
[2018-02-14] MEDS: ACCU-CHEK XX (02:18)
[2018-02-14 05:41] LABS: ADD MAN DIFF? NO; BASOPHIL # 0.1 10^3/ul (0.0-0.1); BASOPHILS % 0.5 % (0.0-2.0); EOSINOPHILS # 0.4 10^3/ul (0.0-0.5); EOSINOPHILS % 2.3 % (0.0-7.0); HEMATOCRIT 33.7 % (37.0-47.0); HEMOGLOBIN 10.2 g/dl (12.0-16.0); LYMPHOCYTES # 0.8 10^3/ul (0.8-2.9); LYMPHOCYTES % 5.4 % (15.0-51.0); MEAN CORPUSCULAR HEMOGLOBIN 32.9 pg (29.0-33.0); MEAN CORPUSCULAR HGB CONC 30.3 g/dl (32.0-37.0); MEAN CORPUSCULAR VOLUME 108.7 fl (82.0-101.0); MEAN PLATELET VOLUME 10.4 fl (7.4-10.4); MONOCYTE # 0.5 10^3/ul (0.3-0.9); MONOCYTES % 3.1 % (0.0-11.0); NEUTROPHILS % 86.6 % (39.0-77.0); PLATELET COUNT 244 10^3/UL (140-415); RED CELL DISTRIBUTION WIDTH 15.2 % (11.5-14.5)
[2018-02-14] MEDS: DIAZEPAM 5 MG TAB PO ×3 (05:52→23:06)
[2018-02-14] MEDS: LEVOTHYROXINE 150 MCG TAB PO (05:52)
[2018-02-14] MEDS: PANTOPRAZOLE 40 MG INJ IV (05:55)
[2018-02-14 06:00] LABS: INR 0.85; PROTIME 11.7 Sec (11.9-14.9); PT RATIO 0.9
[2018-02-14 06:01] LABS: PARTIAL THROMBOPLASTIN TIME 29.2 Sec (25.0-35.0)
[2018-02-14 06:10] LABS: ALANINE AMINOTRANSFERASE 24 IU/L (13-69); ALBUMIN 3.4 g/dl (3.3-4.9); ALKALINE PHOSPHATASE 291 IU/L (42-121); ASPARTATE AMINO TRANSFERASE 30 IU/L (15-46); BILIRUBIN,INDIRECT 0.1 mg/dl (0-1.1); BILIRUBIN,TOTAL 0.1 mg/dl (0.2-1.3); TOTAL PROTEIN 6.4 g/dl (6.1-8.1)
[2018-02-14 06:13] LABS: ANION GAP 19 (8-16); BLOOD UREA NITROGEN 52 mg/dl (7-20); CALCIUM 8.4 mg/dl (8.4-10.2); CARBON DIOXIDE 27 mmol/L (21-31); CHLORIDE 100 mmol/L (97-110); CREATININE 12.24 mg/dl (0.44-1.00); GLUCOSE 184 mg/dl (70-220); POTASSIUM 4.6 mmol/L (3.5-5.1); SODIUM 141 mmol/L (135-144)
[2018-02-14] MEDS: INSULIN ASPART [NOVOLOG] 3 ML PEN SC ×7 (07:20→21:27)
[2018-02-14] MEDS: SEVELAMER CARBONATE 800 MG TABLET PO ×3 (07:50→18:10)
[2018-02-14] MEDS: CALCIUM ACETATE 667 MG CAP PO ×3 (07:50→18:10)
[2018-02-14] MEDS: HYDROCORTISONE 5 MG TAB PO ×3 (08:52→20:27)
[2018-02-14] MEDS: CINACALCET 30 MG TAB PO (08:52)
[2018-02-14] MEDS: DEXTROSE 50% 50 ML SYRINGE IV ×3 (12:44→14:05)
[2018-02-14] MEDS: LORAZEPAM 2 MG INJ IV (13:00)
[2018-02-14] MEDS: PROPOFOL 20 ML (20:00)
[2018-02-14] MEDS: DIPHENHYDRAMINE 50 MG INJ (20:00)
[2018-02-14] MEDS: MIDAZOLAM 1 MG/ML 2 ML INJ (20:00)
[2018-02-14] MEDS: INSULIN DETEMIR [LEVEMIR] (100 UNITS/ML) SYG SC (21:27)
[2018-02-14] MEDS: NPH, HUMAN INSULIN ISOPHANE 3ML VIAL SC (21:28)
[2018-02-14 23:51] LABS: GLUCOSE 492 mg/dl (70-220)
[2018-02-15] MEDS: DIPHENHYDRAMINE 50 MG INJ IV ×4 (00:38→20:10)
[2018-02-15] MEDS: HYDROmorphONE 2 MG/ML SYG IV ×4 (00:39→19:12)
[2018-02-15] MEDS: METOCLOPRAMIDE 10 MG INJ IV ×4 (00:39→17:04)
[2018-02-15] MEDS: INSULIN ASPART [NOVOLOG] 3 ML PEN SC ×8 (00:43→21:00)
[2018-02-15] MEDS: ACCU-CHEK XX (02:00)
[2018-02-15] MEDS: SOD CHLORIDE 0.9% 250 ML IV (02:08)
[2018-02-15] MEDS: PANTOPRAZOLE 40 MG INJ IV (06:40)
[2018-02-15] MEDS: DIAZEPAM 5 MG TAB PO ×3 (06:40→21:14)
[2018-02-15] MEDS: LEVOTHYROXINE 150 MCG TAB PO (06:42)
[2018-02-15] MEDS: SEVELAMER CARBONATE 800 MG TABLET PO ×3 (08:20→17:04)
[2018-02-15] MEDS: HYDROCORTISONE 5 MG TAB PO ×3 (08:20→20:10)
[2018-02-15] MEDS: CINACALCET 30 MG TAB PO (08:20)
[2018-02-15] MEDS: CALCIUM ACETATE 667 MG CAP PO ×3 (08:20→17:03)
[2018-02-15] MEDS: DEXTROSE 50% 50 ML SYRINGE IV (08:26)
[2018-02-15] MEDS: EPOETIN 10000 UNITS/1 ML INJ (ESRD) SC (17:20)
[2018-02-15] MEDS: NPH, HUMAN INSULIN ISOPHANE 3ML VIAL SC (21:26)
[2018-02-15] MEDS: INSULIN DETEMIR [LEVEMIR] (100 UNITS/ML) SYG SC (22:18)
[2018-02-16] MEDS: METOCLOPRAMIDE 10 MG INJ IV ×4 (00:26→17:44)
[2018-02-16] MEDS: HYDROmorphONE 2 MG/ML SYG IV ×6 (00:26→21:24)
[2018-02-16] MEDS: DIPHENHYDRAMINE 50 MG INJ IV ×6 (00:26→21:24)
[2018-02-16] MEDS: ACCU-CHEK XX (02:00)
[2018-02-16 06:14] LABS: ADD MAN DIFF? NO
[2018-02-16] MEDS: LEVOTHYROXINE 150 MCG TAB PO (06:24)
[2018-02-16] MEDS: DIAZEPAM 5 MG TAB PO ×3 (06:24→22:35)
[2018-02-16] MEDS: PANTOPRAZOLE 40 MG INJ IV (06:24)
[2018-02-16 06:42] LABS: BASOPHIL # 0.1 10^3/ul (0.0-0.1); BASOPHILS % 0.5 % (0.0-2.0); EOSINOPHILS # 0.2 10^3/ul (0.0-0.5); EOSINOPHILS % 1.5 % (0.0-7.0); HEMATOCRIT 30.2 % (37.0-47.0); HEMOGLOBIN 9.3 g/dl (12.0-16.0); LYMPHOCYTES % 8.6 % (15.0-51.0); MEAN CORPUSCULAR HEMOGLOBIN 33.1 pg (29.0-33.0); MEAN CORPUSCULAR HGB CONC 30.8 g/dl (32.0-37.0); MEAN CORPUSCULAR VOLUME 107.5 fl (82.0-101.0); MEAN PLATELET VOLUME 10.3 fl (7.4-10.4); MONOCYTE # 0.5 10^3/ul (0.3-0.9); MONOCYTES % 4.1 % (0.0-11.0); NEUTROPHIL # 9.3 10^3/ul (1.6-7.5); NEUTROPHILS % 83.9 % (39.0-77.0); PLATELET COUNT 199 10^3/UL (140-415); RED BLOOD COUNT 2.81 10^6/ul (4.20-5.40); RED CELL DISTRIBUTION WIDTH 14.8 % (11.5-14.5)
[2018-02-16 06:53] LABS: ANION GAP 18 (8-16); BLOOD UREA NITROGEN 59 mg/dl (7-20); CALCIUM 8.1 mg/dl (8.4-10.2); CARBON DIOXIDE 26 mmol/L (21-31); CHLORIDE 93 mmol/L (97-110); GLUCOSE 368 mg/dl (70-220); MAGNESIUM 2.3 mg/dl (1.7-2.5); PHOSPHORUS 4.5 mg/dl (2.5-4.9); POTASSIUM 5.3 mmol/L (3.5-5.1); SODIUM 132 mmol/L (135-144)
[2018-02-16 07:02] LABS: CREATININE 12.81 mg/dl (0.44-1.00)
[2018-02-16] MEDS: INSULIN ASPART [NOVOLOG] 3 ML PEN SC ×7 (08:22→21:22)
[2018-02-16] MEDS: SEVELAMER CARBONATE 800 MG TABLET PO ×3 (08:53→17:02)
[2018-02-16] MEDS: CALCIUM ACETATE 667 MG CAP PO ×3 (08:54→17:02)
[2018-02-16] MEDS: HYDROCORTISONE 5 MG TAB PO ×3 (08:59→21:25)
[2018-02-16] MEDS: CINACALCET 30 MG TAB PO (08:59)
[2018-02-16] MEDS: ONDANSETRON 4 MG INJ IV (12:51)
[2018-02-16] MEDS: INSULIN DETEMIR [LEVEMIR] (100 UNITS/ML) SYG SC (21:21)
[2018-02-16] MEDS: NPH, HUMAN INSULIN ISOPHANE 3ML VIAL SC (21:22)
[2018-02-17] MEDS: METOCLOPRAMIDE 10 MG INJ IV ×3 (01:20→12:17)
[2018-02-17] MEDS: DIPHENHYDRAMINE 50 MG INJ IV ×3 (02:17→12:16)
[2018-02-17] MEDS: HYDROmorphONE 2 MG/ML SYG IV ×3 (02:17→12:05)
[2018-02-17] MEDS: ACCU-CHEK XX (02:23)
[2018-02-17 06:09] LABS: ADD MAN DIFF? NO
[2018-02-17 06:16] LABS: BASOPHIL # 0.1 10^3/ul (0.0-0.1); BASOPHILS % 0.5 % (0.0-2.0); EOSINOPHILS # 0.2 10^3/ul (0.0-0.5); EOSINOPHILS % 1.9 % (0.0-7.0); HEMATOCRIT 29.4 % (37.0-47.0); HEMOGLOBIN 9.3 g/dl (12.0-16.0); LYMPHOCYTES # 0.9 10^3/ul (0.8-2.9); LYMPHOCYTES % 7.9 % (15.0-51.0); MEAN CORPUSCULAR HEMOGLOBIN 34.3 pg (29.0-33.0); MEAN CORPUSCULAR HGB CONC 31.6 g/dl (32.0-37.0); MEAN CORPUSCULAR VOLUME 108.5 fl (82.0-101.0); MEAN PLATELET VOLUME 10.2 fl (7.4-10.4); MONOCYTE # 0.5 10^3/ul (0.3-0.9); MONOCYTES % 4.7 % (0.0-11.0); NEUTROPHIL # 9.1 10^3/ul (1.6-7.5); PLATELET COUNT 198 10^3/UL (140-415); RED BLOOD COUNT 2.71 10^6/ul (4.20-5.40); RED CELL DISTRIBUTION WIDTH 14.9 % (11.5-14.5)
[2018-02-17 06:16] LABS: WHITE BLOOD COUNT 10.9 10^3/ul (4.8-10.8)
[2018-02-17] MEDS: DIAZEPAM 5 MG TAB PO ×2 (06:36→14:24)
[2018-02-17] MEDS: PANTOPRAZOLE 40 MG INJ IV (06:36)
[2018-02-17] MEDS: LEVOTHYROXINE 150 MCG TAB PO (06:39)
[2018-02-17 06:49] LABS: ANION GAP 20 (8-16); BLOOD UREA NITROGEN 60 mg/dl (7-20); CALCIUM 7.6 mg/dl (8.4-10.2); CARBON DIOXIDE 26 mmol/L (21-31); CHLORIDE 93 mmol/L (97-110); MAGNESIUM 2.4 mg/dl (1.7-2.5); PHOSPHORUS 4.3 mg/dl (2.5-4.9); POTASSIUM 5.4 mmol/L (3.5-5.1); SODIUM 134 mmol/L (135-144)
[2018-02-17 06:53] LABS: GLUCOSE 417 mg/dl (70-220)
[2018-02-17 07:05] LABS: CREATININE 12.55 mg/dl (0.44-1.00)
[2018-02-17] MEDS: ONDANSETRON 4 MG INJ IV (09:45)
[2018-02-17] MEDS: SEVELAMER CARBONATE 800 MG TABLET PO ×2 (09:49→12:19)
[2018-02-17] MEDS: HYDROCORTISONE 5 MG TAB PO (09:50)
[2018-02-17] MEDS: CALCIUM ACETATE 667 MG CAP PO ×2 (09:51→12:20)
[2018-02-17] MEDS: INSULIN ASPART [NOVOLOG] 3 ML PEN SC ×3 (10:18→12:30)
[2018-02-17] MEDS: CINACALCET 30 MG TAB PO (12:19)
[2018-02-17] MEDS ORDERED: NPH, HUMAN INSULIN ISOPHANE 3ML VIAL SC (21:00)
== END 2018-02-17 15:10 | disposition home or self-care (01) | DRG 73 ==
LOC: MS1 02-02 17:45 → TEL 02-15 02:25 → E/R 16:33 → MS1 01-29 00:50
PROC: 3E1M39Z Irrigation of Peritoneal Cavity using Dialysate, Percutaneous Approach (ICD-10-PCS; principal; 2018-02-14 14:15)
PROC: 0DB68ZX Excision of Stomach, Via Natural or Artificial Opening Endoscopic, Diagnostic (ICD-10-PCS; 2018-02-14 14:15)
DX: E10.43 Type 1 diabetes mellitus with diabetic autonomic (poly)neuropathy (principal); N18.6 End stage renal disease; E27.40 Unspecified adrenocortical insufficiency; N39.0 Urinary tract infection, site not specified; G25.82 Stiff-man syndrome; F33.9 Major depressive disorder, recurrent, unspecified; K31.84 Gastroparesis; D63.1 Anemia in chronic kidney disease; E66.01 Morbid (severe) obesity due to excess calories; Z68.38 Body mass index [BMI] 38.0-38.9, adult; G89.4 Chronic pain syndrome; K29.60 Other gastritis without bleeding; E03.9 Hypothyroidism, unspecified; E87.5 Hyperkalemia; M25.522 Pain in left elbow; D72.829 Elevated white blood cell count, unspecified
CPT/HCPCS: 36415; 73070; 74181; 76705; 80048; 80053; 80076; 82947; 82962; 83690; 83735; 84100; 85025; 85610; 85730; 86706; 87040; 87340; 88305; 88312; 90945; 96374; 96375; 99285-25

== ENCOUNTER 2018-02-19 17:54 | Emergency (ER) | payer MEDICAID, OTHER ==
[2018-02-19] MEDS: HYDROCODONE/APAP (10/325) TAB PO (18:43)
[2018-02-19] MEDS: ONDANSETRON (ODT) 4 MG TAB ODT (18:43)
== END 2018-02-19 20:07 | disposition home or self-care (01) ==
LOC: E/R 17:54
DX: E66.01 Morbid (severe) obesity due to excess calories (principal); N18.6 End stage renal disease; S50.02XA Contusion of left elbow, initial encounter; S80.12XA Contusion of left lower leg, initial encounter; S30.0XXA Contusion of lower back and pelvis, initial encounter; S09.90XA Unspecified injury of head, initial encounter; E10.22 Type 1 diabetes mellitus with diabetic chronic kidney disease; W01.0XXA Fall on same level from slipping, tripping and stumbling without subsequent striking against object, initial encounter; Y92.9 Unspecified place or not applicable; Z68.39 Body mass index [BMI] 39.0-39.9, adult; Z99.2 Dependence on renal dialysis; Z79.4 Long term (current) use of insulin
CPT/HCPCS: 70450; 73080-LT; 73562; 73610; 99284-25

== ENCOUNTER 2018-02-24 15:36 | Emergency (ER) | payer MEDICAID ==
[2018-02-24 16:36] LABS: ADD MAN DIFF? NO
[2018-02-24 16:39] LABS: BASOPHIL # 0.1 10^3/ul (0.0-0.1); BASOPHILS % 0.9 % (0.0-2.0); EOSINOPHILS # 0.3 10^3/ul (0.0-0.5); EOSINOPHILS % 3.5 % (0.0-7.0); HEMATOCRIT 34.8 % (37.0-47.0); HEMOGLOBIN 10.9 g/dl (12.0-16.0); LYMPHOCYTES # 1.1 10^3/ul (0.8-2.9); LYMPHOCYTES % 12.8 % (15.0-51.0); MEAN CORPUSCULAR HEMOGLOBIN 33.5 pg (29.0-33.0); MEAN CORPUSCULAR HGB CONC 31.3 g/dl (32.0-37.0); MEAN CORPUSCULAR VOLUME 107.1 fl (82.0-101.0); MEAN PLATELET VOLUME 9.7 fl (7.4-10.4); MONOCYTE # 0.5 10^3/ul (0.3-0.9); MONOCYTES % 5.6 % (0.0-11.0); NEUTROPHIL # 6.6 10^3/ul (1.6-7.5); NEUTROPHILS % 76.3 % (39.0-77.0); PLATELET COUNT 294 10^3/UL (140-415); RED BLOOD COUNT 3.25 10^6/ul (4.20-5.40); RED CELL DISTRIBUTION WIDTH 15.2 % (11.5-14.5)
[2018-02-24 16:39] LABS: WHITE BLOOD COUNT 8.6 10^3/ul (4.8-10.8)
[2018-02-24 16:59] LABS: ALANINE AMINOTRANSFERASE 19 IU/L (13-69); ALBUMIN 3.7 g/dl (3.3-4.9); ALBUMIN/GLOBULIN RATIO 1.08; ALKALINE PHOSPHATASE 279 IU/L (42-121); ANION GAP 22 (8-16); ASPARTATE AMINO TRANSFERASE 23 IU/L (15-46); BLOOD UREA NITROGEN 51 mg/dl (7-20); CALCIUM 8.2 mg/dl (8.4-10.2); CARBON DIOXIDE 25 mmol/L (21-31); CHLORIDE 95 mmol/L (97-110); GLUCOSE 171 mg/dl (70-220); POTASSIUM 5.1 mmol/L (3.5-5.1); SODIUM 137 mmol/L (135-144); TOTAL PROTEIN 7.1 g/dl (6.1-8.1)
[2018-02-24 17:02] LABS: LIPASE < 10 U/L (23-300)
[2018-02-24 17:06] LABS: CREATININE 14.12 mg/dl (0.44-1.00)
[2018-02-24] MEDS: ONDANSETRON (ODT) 4 MG TAB ODT (18:11)
[2018-02-24] MEDS: HYDROCODONE/APAP (10/325) TAB PO (18:12)
[2018-02-24 18:39] LABS: FLD RBC 0 /uL; FLD WBC 45 /cmm
[2018-02-24 19:07] LABS: FLD TYPE PARACENTHESIS
[2018-02-24 19:08] LABS: FLD CLARITY CLEAR; FLD COLOR YELLOW
== END 2018-02-24 19:50 | disposition home or self-care (01) ==
LOC: E/R 15:36
DX: D64.9 Anemia, unspecified (principal); E10.22 Type 1 diabetes mellitus with diabetic chronic kidney disease; N18.6 End stage renal disease; E03.9 Hypothyroidism, unspecified; Z79.4 Long term (current) use of insulin; Z99.2 Dependence on renal dialysis
CPT/HCPCS: 36415; 80053; 82962; 83690; 84703; 85025; 87070; 89051; 99283

== ENCOUNTER 2018-02-26 19:50 | Emergency (ER) | payer MEDICAID ==
[2018-02-26] MEDS: SOD CHLORIDE 0.9% 500 ML IV (23:04)
[2018-02-26] MEDS: HYDROmorphONE 1 MG/ML SYG IV (23:04)
[2018-02-26] MEDS: ONDANSETRON 4 MG INJ IV (23:04)
[2018-02-26 23:05] LABS: ADD MAN DIFF? NO
[2018-02-26 23:07] LABS: WHITE BLOOD COUNT 11.7 10^3/ul (4.8-10.8)
[2018-02-26 23:07] LABS: BASOPHIL # 0.1 10^3/ul (0.0-0.1); EOSINOPHILS # 0.3 10^3/ul (0.0-0.5); EOSINOPHILS % 2.6 % (0.0-7.0); HEMOGLOBIN 11.6 g/dl (12.0-16.0); LYMPHOCYTES # 1.3 10^3/ul (0.8-2.9); LYMPHOCYTES % 11.3 % (15.0-51.0); MEAN CORPUSCULAR HEMOGLOBIN 33.8 pg (29.0-33.0); MEAN CORPUSCULAR HGB CONC 31.4 g/dl (32.0-37.0); MEAN CORPUSCULAR VOLUME 107.9 fl (82.0-101.0); MEAN PLATELET VOLUME 10.1 fl (7.4-10.4); MONOCYTE # 0.7 10^3/ul (0.3-0.9); MONOCYTES % 5.8 % (0.0-11.0); NEUTROPHIL # 9.2 10^3/ul (1.6-7.5); NEUTROPHILS % 78.7 % (39.0-77.0); PLATELET COUNT 335 10^3/UL (140-415); RED BLOOD COUNT 3.43 10^6/ul (4.20-5.40)
[2018-02-26 23:27] LABS: ALANINE AMINOTRANSFERASE 20 IU/L (13-69); ALBUMIN/GLOBULIN RATIO 1.08; ALKALINE PHOSPHATASE 342 IU/L (42-121); ANION GAP 22 (8-16); ASPARTATE AMINO TRANSFERASE 24 IU/L (15-46); BLOOD UREA NITROGEN 61 mg/dl (7-20); CALCIUM 7.3 mg/dl (8.4-10.2); CARBON DIOXIDE 26 mmol/L (21-31); CHLORIDE 92 mmol/L (97-110); GLUCOSE 198 mg/dl (70-220); POTASSIUM 5.8 mmol/L (3.5-5.1); SODIUM 134 mmol/L (135-144); TOTAL PROTEIN 7.7 g/dl (6.1-8.1)
[2018-02-26] MEDS: METOCLOPRAMIDE 10 MG INJ IM (23:56)
[2018-02-27] MEDS ORDERED: DEXTROSE 50% 50 ML SYRINGE IV (01:00)
[2018-02-27] MEDS: HYDROmorphONE 1 MG/ML SYG IV (01:10)
[2018-02-27] MEDS: NA BICARBONATE 8.4% 50 ML SYG IV (01:15)
[2018-02-27] MEDS: ONDANSETRON 4 MG INJ IV (01:15)
[2018-02-27] MEDS: NA POLYST SULFON 15 GM/60 ML BTL PO (01:15)
[2018-02-27] MEDS: DEXTROSE 50% 50 ML SYRINGE IV (01:15)
[2018-02-27] MEDS: INSULIN REGULAR, HUMAN 100 UNIT/1 ML 3ML VIAL IVP (01:18)
[2018-02-27] MEDS: DIPHENHYDRAMINE 50 MG INJ IV (01:49)
== END 2018-02-27 01:50 | disposition home or self-care (01) ==
LOC: E/R 02-27 01:50
DX: E87.5 Hyperkalemia (principal); R19.7 Diarrhea, unspecified; E10.22 Type 1 diabetes mellitus with diabetic chronic kidney disease; N18.6 End stage renal disease; Z79.4 Long term (current) use of insulin; Z99.2 Dependence on renal dialysis
CPT/HCPCS: 36415; 71045; 80053; 85025; 96372; 96374; 96375; 96376; 99284-25

== ENCOUNTER 2018-02-28 22:08 | Emergency (ER) | payer MEDICAID ==
[2018-03-01] MEDS: LORAZEPAM 0.5 MG TAB PO (01:41)
[2018-03-01 01:52] LABS: ADD MAN DIFF? NO
[2018-03-01 01:54] LABS: WHITE BLOOD COUNT 10.1 10^3/ul (4.8-10.8)
[2018-03-01 01:54] LABS: BASOPHIL # 0.1 10^3/ul (0.0-0.1); BASOPHILS % 1.1 % (0.0-2.0); EOSINOPHILS # 0.2 10^3/ul (0.0-0.5); EOSINOPHILS % 2.3 % (0.0-7.0); HEMATOCRIT 34.8 % (37.0-47.0); LYMPHOCYTES # 0.9 10^3/ul (0.8-2.9); LYMPHOCYTES % 8.7 % (15.0-51.0); MEAN CORPUSCULAR HEMOGLOBIN 33.7 pg (29.0-33.0); MEAN CORPUSCULAR HGB CONC 31.6 g/dl (32.0-37.0); MEAN CORPUSCULAR VOLUME 106.7 fl (82.0-101.0); MEAN PLATELET VOLUME 10.5 fl (7.4-10.4); MONOCYTE # 0.9 10^3/ul (0.3-0.9); MONOCYTES % 8.6 % (0.0-11.0); NEUTROPHIL # 7.9 10^3/ul (1.6-7.5); NEUTROPHILS % 78.3 % (39.0-77.0); PLATELET COUNT 274 10^3/UL (140-415); RED BLOOD COUNT 3.26 10^6/ul (4.20-5.40); RED CELL DISTRIBUTION WIDTH 14.7 % (11.5-14.5)
[2018-03-01 02:14] LABS: ANION GAP 26 (8-16); BLOOD UREA NITROGEN 64 mg/dl (7-20); CALCIUM 7.4 mg/dl (8.4-10.2); CARBON DIOXIDE 25 mmol/L (21-31); CHLORIDE 93 mmol/L (97-110); GLUCOSE 241 mg/dl (70-220); POTASSIUM 5.6 mmol/L (3.5-5.1); SODIUM 138 mmol/L (135-144)
[2018-03-01 02:42] LABS: CREATININE 14.47 mg/dl (0.44-1.00)
[2018-03-01] MEDS ORDERED: DEXTROSE 50% 50 ML SYRINGE IV (04:00)
[2018-03-01] MEDS: NA POLYST SULFON 15 GM/60 ML BTL PO (04:11)
[2018-03-01] MEDS: INSULIN REGULAR, HUMAN 100 UNIT/1 ML 3ML VIAL IVP (04:16)
[2018-03-01] MEDS: DEXTROSE 50% 50 ML SYRINGE IV (04:16)
[2018-03-01] MEDS: ALBUTEROL 0.083% (NEB) 2.5 MG/3 ML AMP HHN (04:26)
== END 2018-03-01 05:59 | disposition home or self-care (01) ==
LOC: E/R 22:08
DX: F41.9 Anxiety disorder, unspecified (principal); E87.5 Hyperkalemia; E10.22 Type 1 diabetes mellitus with diabetic chronic kidney disease; N18.6 End stage renal disease; Z99.2 Dependence on renal dialysis; Z79.4 Long term (current) use of insulin
CPT/HCPCS: 80048; 82962; 85025; 93005; 94664; 96374; 96375; 99284-25

== ENCOUNTER 2018-03-04 19:57 | Emergency (ER) | payer MEDICAID ==
[2018-03-04] MEDS: DIPHENHYDRAMINE 50 MG INJ IM (22:58)
== END 2018-03-04 23:20 | disposition home or self-care (01) ==
LOC: FTE 23:20
DX: F41.9 Anxiety disorder, unspecified (principal); N18.6 End stage renal disease; E10.22 Type 1 diabetes mellitus with diabetic chronic kidney disease; Z79.4 Long term (current) use of insulin; Z99.2 Dependence on renal dialysis
CPT/HCPCS: 82962; 96372; 99284-25

== ENCOUNTER 2018-03-05 12:15 | Inpatient (IN) | payer MEDICAID ==
[2018-03-05] MEDS: SOD CHLORIDE 0.9% 1,000 ML IV (14:58)
[2018-03-05] MEDS: LORAZEPAM 2 MG INJ IV (14:58)
[2018-03-05 15:00] LABS: ADD MAN DIFF? NO
[2018-03-05 15:03] LABS: BASOPHIL # 0.1 10^3/ul (0.0-0.1); BASOPHILS % 0.7 % (0.0-2.0); EOSINOPHILS # 0.1 10^3/ul (0.0-0.5); EOSINOPHILS % 1.1 % (0.0-7.0); HEMATOCRIT 37.4 % (37.0-47.0); LYMPHOCYTES # 1.1 10^3/ul (0.8-2.9); LYMPHOCYTES % 8.9 % (15.0-51.0); MEAN CORPUSCULAR HGB CONC 32.1 g/dl (32.0-37.0); MEAN CORPUSCULAR VOLUME 102.7 fl (82.0-101.0); MEAN PLATELET VOLUME 9.6 fl (7.4-10.4); MONOCYTE # 0.8 10^3/ul (0.3-0.9); NEUTROPHIL # 9.8 10^3/ul (1.6-7.5); NEUTROPHILS % 81.8 % (39.0-77.0); PLATELET COUNT 293 10^3/UL (140-415); RED BLOOD COUNT 3.64 10^6/ul (4.20-5.40); RED CELL DISTRIBUTION WIDTH 14.6 % (11.5-14.5)
[2018-03-05 15:23] LABS: INR 0.95; PROTIME 12.8 Sec (11.9-14.9)
[2018-03-05 15:24] LABS: PARTIAL THROMBOPLASTIN TIME 26.1 Sec (25.0-35.0)
[2018-03-05 15:28] LABS: ALANINE AMINOTRANSFERASE 23 IU/L (13-69); ALBUMIN/GLOBULIN RATIO 1.05; ALKALINE PHOSPHATASE 276 IU/L (42-121); ANION GAP 25 (8-16); ASPARTATE AMINO TRANSFERASE 33 IU/L (15-46); BLOOD UREA NITROGEN 66 mg/dl (7-20); CALCIUM 8.4 mg/dl (8.4-10.2); CARBON DIOXIDE 28 mmol/L (21-31); CHLORIDE 89 mmol/L (97-110); CREATINE KINASE 359 IU/L (23-200); GLUCOSE 72 mg/dl (70-220); POTASSIUM 4.8 mmol/L (3.5-5.1); SODIUM 137 mmol/L (135-144); TOTAL PROTEIN 7.8 g/dl (6.1-8.1)
[2018-03-05 15:36] LABS: CREATININE 14.93 mg/dl (0.44-1.00)
[2018-03-05 15:41] LABS: CK INDEX 0.8; CK-MB 2.82 ng/ml (0.0-2.4); TROPONIN-I < 0.010 ng/ml (0.000-0.120)
[2018-03-05] MEDS ORDERED: DEXTROSE 50% 50 ML SYRINGE (16:31)
[2018-03-05] MEDS: DEXTROSE 50% 50 ML SYRINGE IV (16:32)
[2018-03-05 17:53] LABS: CREATINE KINASE 274 IU/L (23-200)
[2018-03-05 18:07] LABS: CK INDEX 0.9; CK-MB 2.45 ng/ml (0.0-2.4); TROPONIN-I < 0.010 ng/ml (0.000-0.120)
[2018-03-05] MEDS ORDERED: ONDANSETRON 4 MG INJ IV (19:00)
[2018-03-05] MEDS ORDERED: ACETAMINOPHEN 325 MG TAB PO (19:00)
[2018-03-05] MEDS ORDERED: DEXTROSE 5%-0.45% NACL 1,000 ML IV (19:00)
[2018-03-05] MEDS ORDERED: INSULIN GLARGINE [LANTus] (100 UNITS/ML) SYG SC (20:00)
[2018-03-05] MEDS ORDERED: INSULIN ASPART [NOVOLOG] 3 ML PEN SC (21:00)
[2018-03-05] MEDS ORDERED: HYDROCODONE PO (23:00)
[2018-03-05] MEDS ORDERED: ACETAMINOPHEN PO (23:00)
[2018-03-05] MEDS ORDERED: GLUCOSE GEL 15 GRAM TUBE PO ×2 (23:30)
[2018-03-05] MEDS ORDERED: GLUCAGON 1 MG INJ IM (23:30)
[2018-03-05] MEDS ORDERED: GLUCOSE GEL 15 GRAM TUBE BUCCAL (23:30)
[2018-03-06] MEDS ORDERED: ACCU-CHEK XX ×2 (02:00)
[2018-03-06] MEDS: ACCUCHECK AT 2AM (Patients on SS coverage) XX (02:41)
[2018-03-06] MEDS: HYDROCODONE/APAP (10/325) TAB PO ×3 (02:44→18:18)
[2018-03-06] MEDS: LEVOTHYROXINE 150 MCG TAB PO (06:08)
[2018-03-06 07:52] LABS: HEMOGLOBIN A1C 7.6 % (0-5.9)
[2018-03-06 07:54] LABS: ANION GAP 27 (8-16); BLOOD UREA NITROGEN 69 mg/dl (7-20); CALCIUM 7.9 mg/dl (8.4-10.2); CARBON DIOXIDE 22 mmol/L (21-31); CHLORIDE 93 mmol/L (97-110); GLUCOSE 192 mg/dl (70-220); SODIUM 135 mmol/L (135-144)
[2018-03-06] MEDS ORDERED: INSULIN ASPART [NOVOLOG] 3 ML PEN SC (08:00)
[2018-03-06 08:02] LABS: POTASSIUM 6.5 mmol/L (3.5-5.1)
[2018-03-06 08:11] LABS: CREATININE 15.78 mg/dl (0.44-1.00)
[2018-03-06 08:19] LABS: FREE T4 (FREE THYROXINE) 1.07 ng/dl (0.64-1.79)
[2018-03-06] MEDS: INSULIN ASPART [NOVOLOG] 3 ML PEN SC ×4 (08:23→21:00)
[2018-03-06] MEDS ORDERED: NA POLYST SULFON 15 GM/60 ML BTL PO (09:00)
[2018-03-06] MEDS: CALCIUM ACETATE 667 MG CAP PO ×3 (09:04→18:18)
[2018-03-06] MEDS: SEVELAMER CARBONATE 800 MG TABLET PO ×3 (09:04→18:18)
[2018-03-06] MEDS: CINACALCET 30 MG TAB PO (09:05)
[2018-03-06] MEDS: ONDANSETRON 4 MG INJ IV ×3 (09:05→18:16)
[2018-03-06] MEDS: HYDROCORTISONE 5 MG TAB PO ×2 (09:05→21:00)
[2018-03-06] MEDS: NA POLYST SULFON 15 GM/60 ML BTL PO (09:55)
[2018-03-06 11:42] LABS: CHOLESTEROL 168 mg/dl (100-200)
[2018-03-06 11:42] LABS: CHOL/HDL RATIO 4.4 RATIO; HDL CHOLESTEROL 38 mg/dl (34-88); LDL CHOLESTEROL,CALCULATED 84 mg/dl; TRIGLYCERIDES 231 mg/dl (0-149)
[2018-03-06] MEDS: BUSPIRONE 5 MG TAB PO ×2 (13:10→21:36)
[2018-03-06] MEDS: DIPHENHYDRAMINE 25 MG CAP PO (18:18)
[2018-03-06] MEDS ORDERED: HYDROCORTISONE 5 MG TAB PO (21:00)
[2018-03-06] MEDS ORDERED: SERTRALINE 50 MG TAB PO (21:00)
[2018-03-06] MEDS ORDERED: BUSPIRONE 5 MG TAB PO (21:00)
[2018-03-06] MEDS: SERTRALINE 50 MG TAB PO (21:36)
[2018-03-06] MEDS: ACETAMINOPHEN 500 MG TAB PO (21:36)
[2018-03-06] MEDS: DIAZEPAM 5 MG TAB PO (21:36)
[2018-03-06] MEDS: ONDANSETRON 4 MG TAB PO (21:42)
[2018-03-07] MEDS: HYDROCODONE/APAP (10/325) TAB PO ×2 (00:41→06:40)
[2018-03-07] MEDS: DIPHENHYDRAMINE 50 MG INJ IV ×4 (00:42→18:46)
[2018-03-07] MEDS: ACCUCHECK AT 2AM (Patients on SS coverage) XX (02:00)
[2018-03-07] MEDS: ONDANSETRON 4 MG INJ IV ×3 (03:17→16:20)
[2018-03-07 04:43] LABS: HEPATITIS B SURFACE ANTIGEN NEGATIVE (NEGATIVE)
[2018-03-07] MEDS: DIAZEPAM 5 MG TAB PO ×3 (05:31→22:34)
[2018-03-07] MEDS: LEVOTHYROXINE 150 MCG TAB PO (05:31)
[2018-03-07 07:17] LABS: ADD MAN DIFF? NO
[2018-03-07 07:18] LABS: BASOPHIL # 0.1 10^3/ul (0.0-0.1); BASOPHILS % 1.3 % (0.0-2.0); EOSINOPHILS # 0.2 10^3/ul (0.0-0.5); EOSINOPHILS % 2.2 % (0.0-7.0); HEMATOCRIT 31.5 % (37.0-47.0); LYMPHOCYTES # 0.9 10^3/ul (0.8-2.9); LYMPHOCYTES % 11.1 % (15.0-51.0); MEAN CORPUSCULAR HEMOGLOBIN 32.9 pg (29.0-33.0); MEAN CORPUSCULAR HGB CONC 31.7 g/dl (32.0-37.0); MEAN CORPUSCULAR VOLUME 103.6 fl (82.0-101.0); MEAN PLATELET VOLUME 10.7 fl (7.4-10.4); MONOCYTE # 0.5 10^3/ul (0.3-0.9); MONOCYTES % 6.4 % (0.0-11.0); NEUTROPHIL # 6.6 10^3/ul (1.6-7.5); NEUTROPHILS % 78.5 % (39.0-77.0); PLATELET COUNT 231 10^3/UL (140-415); RED BLOOD COUNT 3.04 10^6/ul (4.20-5.40); RED CELL DISTRIBUTION WIDTH 14.4 % (11.5-14.5)
[2018-03-07 07:18] LABS: WHITE BLOOD COUNT 8.5 10^3/ul (4.8-10.8)
[2018-03-07 07:36] LABS: HEMOGLOBIN A1C 7.6 % (0-5.9)
[2018-03-07 07:40] LABS: ANION GAP 26 (8-16); BLOOD UREA NITROGEN 73 mg/dl (7-20); CALCIUM 7.7 mg/dl (8.4-10.2); CARBON DIOXIDE 24 mmol/L (21-31); CHLORIDE 91 mmol/L (97-110); GLUCOSE 237 mg/dl (70-220); POTASSIUM 4.7 mmol/L (3.5-5.1); SODIUM 136 mmol/L (135-144)
[2018-03-07 07:47] LABS: CREATININE 15.55 mg/dl (0.44-1.00)
[2018-03-07] MEDS ORDERED: HYDROCORTISONE 5 MG TAB PO (09:00)
[2018-03-07] MEDS: HYDROCORTISONE 5 MG TAB PO ×3 (09:32→20:39)
[2018-03-07] MEDS: SEVELAMER CARBONATE 800 MG TABLET PO ×3 (09:33→18:03)
[2018-03-07] MEDS: BUSPIRONE 5 MG TAB PO ×2 (09:33→20:39)
[2018-03-07] MEDS: CALCIUM ACETATE 667 MG CAP PO ×3 (09:33→18:03)
[2018-03-07] MEDS: CINACALCET 30 MG TAB PO (09:38)
[2018-03-07] MEDS: INSULIN ASPART [NOVOLOG] 3 ML PEN SC ×4 (09:43→20:39)
[2018-03-07] MEDS: HYDROmorphONE 1 MG/ML SYG IV ×3 (12:02→20:40)
[2018-03-07] MEDS: SERTRALINE 50 MG TAB PO (20:38)
[2018-03-08] MEDS: DIPHENHYDRAMINE 50 MG INJ IV ×3 (00:19→18:58)
[2018-03-08] MEDS: ACCUCHECK AT 2AM (Patients on SS coverage) XX (02:00)
[2018-03-08] MEDS: HYDROmorphONE 1 MG/ML SYG IV ×4 (04:09→20:43)
[2018-03-08] MEDS: DIAZEPAM 5 MG TAB PO ×3 (06:09→22:33)
[2018-03-08] MEDS: LEVOTHYROXINE 150 MCG TAB PO (06:49)
[2018-03-08 07:54] LABS: ANION GAP 27 (8-16); BLOOD UREA NITROGEN 65 mg/dl (7-20); CALCIUM 7.1 mg/dl (8.4-10.2); CARBON DIOXIDE 19 mmol/L (21-31); CHLORIDE 90 mmol/L (97-110); SODIUM 131 mmol/L (135-144)
[2018-03-08 08:04] LABS: CREATININE 13.52 mg/dl (0.44-1.00); GLUCOSE 581 mg/dl (70-220)
[2018-03-08] MEDS: BUSPIRONE 5 MG TAB PO ×2 (08:48→20:43)
[2018-03-08] MEDS: CINACALCET 30 MG TAB PO (08:49)
[2018-03-08] MEDS: SEVELAMER CARBONATE 800 MG TABLET PO ×3 (08:49→18:30)
[2018-03-08] MEDS: HYDROCORTISONE 5 MG TAB PO ×4 (08:49→20:43)
[2018-03-08] MEDS: CALCIUM ACETATE 667 MG CAP PO ×3 (08:49→18:30)
[2018-03-08] MEDS: INSULIN ASPART [NOVOLOG] 3 ML PEN SC ×6 (08:55→20:36)
[2018-03-08] MEDS: ONDANSETRON 4 MG INJ IV ×2 (08:57→15:39)
[2018-03-08] MEDS: INSULIN DETEMIR [LEVEMIR] (100 UNITS/ML) SYG SC ×2 (09:56→22:38)
[2018-03-08] MEDS: SERTRALINE 50 MG TAB PO (20:43)
[2018-03-08] MEDS: PANTOPRAZOLE 40 MG INJ IV (22:33)
[2018-03-09] MEDS: HYDROmorphONE 1 MG/ML SYG IV ×5 (01:20→20:59)
[2018-03-09] MEDS: DIPHENHYDRAMINE 50 MG INJ IV ×3 (01:20→20:58)
[2018-03-09] MEDS: INSULIN ASPART [NOVOLOG] 3 ML PEN SC ×6 (01:57→21:06)
[2018-03-09] MEDS: ACCUCHECK AT 2AM (Patients on SS coverage) XX (01:58)
[2018-03-09] MEDS: DIAZEPAM 5 MG TAB PO ×3 (06:36→21:06)
[2018-03-09] MEDS: LEVOTHYROXINE 150 MCG TAB PO (06:36)
[2018-03-09] MEDS: PANTOPRAZOLE 40 MG INJ IV (06:36)
[2018-03-09] MEDS ORDERED: NPH, HUMAN INSULIN ISOPHANE 3ML VIAL SC (08:00)
[2018-03-09 08:33] LABS: ADD MAN DIFF? NO
[2018-03-09 08:42] LABS: ABNORMAL IP MESSAGE 1; BASOPHIL # 0.1 10^3/ul (0.0-0.1); BASOPHILS % 0.7 % (0.0-2.0); EOSINOPHILS # 0.2 10^3/ul (0.0-0.5); HEMATOCRIT 31.5 % (37.0-47.0); HEMOGLOBIN 10.3 g/dl (12.0-16.0); LYMPHOCYTES # 0.5 10^3/ul (0.8-2.9); LYMPHOCYTES % 4.8 % (15.0-51.0); MEAN CORPUSCULAR HEMOGLOBIN 33.8 pg (29.0-33.0); MEAN CORPUSCULAR HGB CONC 32.7 g/dl (32.0-37.0); MEAN CORPUSCULAR VOLUME 103.3 fl (82.0-101.0); MEAN PLATELET VOLUME 10.4 fl (7.4-10.4); MONOCYTE # 0.4 10^3/ul (0.3-0.9); MONOCYTES % 4.6 % (0.0-11.0); NEUTROPHIL # 8.3 10^3/ul (1.6-7.5); NEUTROPHILS % 87.4 % (39.0-77.0); PLATELET COUNT 224 10^3/UL (140-415); RED BLOOD COUNT 3.05 10^6/ul (4.20-5.40)
[2018-03-09 08:42] LABS: WHITE BLOOD COUNT 9.5 10^3/ul (4.8-10.8)
[2018-03-09 08:57] LABS: POSITIVE DIFF @See below
[2018-03-09] MEDS: SEVELAMER CARBONATE 800 MG TABLET PO ×3 (09:01→17:17)
[2018-03-09] MEDS: BUSPIRONE 5 MG TAB PO ×2 (09:02→20:56)
[2018-03-09] MEDS: HYDROCORTISONE 5 MG TAB PO ×3 (09:02→20:56)
[2018-03-09] MEDS: CINACALCET 30 MG TAB PO (09:02)
[2018-03-09] MEDS: CALCIUM ACETATE 667 MG CAP PO ×3 (09:03→17:16)
[2018-03-09] MEDS: ONDANSETRON 4 MG INJ IV (09:03)
[2018-03-09 09:06] LABS: ANION GAP 21 (8-16); BLOOD UREA NITROGEN 64 mg/dl (7-20); CALCIUM 7.8 mg/dl (8.4-10.2); CARBON DIOXIDE 28 mmol/L (21-31); CHLORIDE 92 mmol/L (97-110); GLUCOSE 128 mg/dl (70-220); POTASSIUM 3.6 mmol/L (3.5-5.1); SODIUM 137 mmol/L (135-144)
[2018-03-09 09:15] LABS: CREATININE 13.86 mg/dl (0.44-1.00)
[2018-03-09] MEDS: NPH, HUMAN INSULIN ISOPHANE 3ML VIAL SC (18:46)
[2018-03-09] MEDS: SERTRALINE 50 MG TAB PO (20:56)
[2018-03-09] MEDS: INSULIN DETEMIR [LEVEMIR] (100 UNITS/ML) SYG SC (21:05)
[2018-03-10] MEDS: ACCUCHECK AT 2AM (Patients on SS coverage) XX (02:58)
[2018-03-10] MEDS: HYDROmorphONE 1 MG/ML SYG IV ×4 (02:59→20:45)
[2018-03-10] MEDS: DIPHENHYDRAMINE 50 MG INJ IV ×4 (02:59→20:56)
[2018-03-10] MEDS: DIAZEPAM 5 MG TAB PO ×3 (06:28→22:47)
[2018-03-10] MEDS: LEVOTHYROXINE 150 MCG TAB PO (06:28)
[2018-03-10] MEDS: PANTOPRAZOLE 40 MG INJ IV (06:28)
[2018-03-10] MEDS: INSULIN ASPART [NOVOLOG] 3 ML PEN SC ×4 (07:49→20:44)
[2018-03-10] MEDS: ONDANSETRON 4 MG INJ IV ×2 (08:00→22:50)
[2018-03-10] MEDS: HYDROCORTISONE 5 MG TAB PO ×3 (08:01→20:56)
[2018-03-10] MEDS: SEVELAMER CARBONATE 800 MG TABLET PO ×3 (08:01→16:46)
[2018-03-10] MEDS: CINACALCET 30 MG TAB PO (08:01)
[2018-03-10] MEDS: CALCIUM ACETATE 667 MG CAP PO ×3 (08:01→16:46)
[2018-03-10] MEDS: BUSPIRONE 5 MG TAB PO ×2 (08:02→20:48)
[2018-03-10 10:01] LABS: ANION GAP 21 (8-16); BLOOD UREA NITROGEN 62 mg/dl (7-20); CALCIUM 7.6 mg/dl (8.4-10.2); CARBON DIOXIDE 27 mmol/L (21-31); CHLORIDE 92 mmol/L (97-110); GLUCOSE 183 mg/dl (70-220); POTASSIUM 4.4 mmol/L (3.5-5.1); SODIUM 136 mmol/L (135-144)
[2018-03-10 11:53] LABS: CREATININE 13.79 mg/dl (0.44-1.00)
[2018-03-10 12:23] LABS: PHOSPHORUS 7.2 mg/dl (2.5-4.9)
[2018-03-10] MEDS: INSULIN DETEMIR [LEVEMIR] (100 UNITS/ML) SYG SC (20:43)
[2018-03-10] MEDS: NPH, HUMAN INSULIN ISOPHANE 3ML VIAL SC (20:44)
[2018-03-10] MEDS: SERTRALINE 50 MG TAB PO (20:48)
[2018-03-11] MEDS: ACCUCHECK AT 2AM (Patients on SS coverage) XX (02:00)
[2018-03-11] MEDS: DIPHENHYDRAMINE 50 MG INJ IV ×4 (02:54→22:17)
[2018-03-11] MEDS: HYDROmorphONE 1 MG/ML SYG IV ×3 (02:55→12:34)
[2018-03-11] MEDS: PANTOPRAZOLE 40 MG INJ IV (06:15)
[2018-03-11] MEDS: LEVOTHYROXINE 150 MCG TAB PO (06:15)
[2018-03-11] MEDS: DIAZEPAM 5 MG TAB PO ×2 (06:15→14:21)
[2018-03-11] MEDS: INSULIN ASPART [NOVOLOG] 3 ML PEN SC ×4 (07:31→20:21)
[2018-03-11] MEDS: HYDROCORTISONE 5 MG TAB PO ×3 (08:36→20:25)
[2018-03-11] MEDS: SEVELAMER CARBONATE 800 MG TABLET PO ×3 (08:36→17:19)
[2018-03-11] MEDS: CALCIUM ACETATE 667 MG CAP PO ×3 (08:36→17:18)
[2018-03-11] MEDS: CINACALCET 30 MG TAB PO (08:36)
[2018-03-11] MEDS: BUSPIRONE 5 MG TAB PO ×2 (08:37→20:24)
[2018-03-11 09:49] LABS: ADD MAN DIFF? NO
[2018-03-11 09:55] LABS: BASOPHIL # 0.1 10^3/ul (0.0-0.1); BASOPHILS % 0.5 % (0.0-2.0); EOSINOPHILS # 0.2 10^3/ul (0.0-0.5); HEMATOCRIT 31.2 % (37.0-47.0); HEMOGLOBIN 9.8 g/dl (12.0-16.0); LYMPHOCYTES % 11.1 % (15.0-51.0); MEAN CORPUSCULAR HEMOGLOBIN 33.2 pg (29.0-33.0); MEAN CORPUSCULAR HGB CONC 31.4 g/dl (32.0-37.0); MEAN CORPUSCULAR VOLUME 105.8 fl (82.0-101.0); MEAN PLATELET VOLUME 10.9 fl (7.4-10.4); MONOCYTE # 0.6 10^3/ul (0.3-0.9); MONOCYTES % 6.6 % (0.0-11.0); NEUTROPHIL # 7.2 10^3/ul (1.6-7.5); NEUTROPHILS % 79.4 % (39.0-77.0); PLATELET COUNT 207 10^3/UL (140-415); RED BLOOD COUNT 2.95 10^6/ul (4.20-5.40); RED CELL DISTRIBUTION WIDTH 13.8 % (11.5-14.5)
[2018-03-11 09:55] LABS: WHITE BLOOD COUNT 9.1 10^3/ul (4.8-10.8)
[2018-03-11 10:20] LABS: ANION GAP 19 (8-16); BLOOD UREA NITROGEN 61 mg/dl (7-20); CALCIUM 7.9 mg/dl (8.4-10.2); CARBON DIOXIDE 29 mmol/L (21-31); CHLORIDE 94 mmol/L (97-110); GLUCOSE 115 mg/dl (70-220); POTASSIUM 3.8 mmol/L (3.5-5.1); SODIUM 138 mmol/L (135-144)
[2018-03-11 10:30] LABS: CREATININE 13.29 mg/dl (0.44-1.00)
[2018-03-11] MEDS: ONDANSETRON 4 MG INJ IV (15:28)
[2018-03-11] MEDS: NPH, HUMAN INSULIN ISOPHANE 3ML VIAL SC (20:20)
[2018-03-11] MEDS: INSULIN DETEMIR [LEVEMIR] (100 UNITS/ML) SYG SC (20:21)
[2018-03-11] MEDS: SERTRALINE 50 MG TAB PO (20:24)
[2018-03-11] MEDS: HYDROmorphONE 2 MG TAB PO (22:18)
[2018-03-12] MEDS: DIAZEPAM 5 MG TAB PO ×4 (00:58→21:05)
[2018-03-12] MEDS: ACCUCHECK AT 2AM (Patients on SS coverage) XX (02:00)
[2018-03-12] MEDS: PANTOPRAZOLE 40 MG INJ IV (06:41)
[2018-03-12] MEDS: LEVOTHYROXINE 150 MCG TAB PO (06:42)
[2018-03-12 07:43] LABS: ANION GAP 18 (8-16); BLOOD UREA NITROGEN 68 mg/dl (7-20); CALCIUM 8.2 mg/dl (8.4-10.2); CARBON DIOXIDE 27 mmol/L (21-31); CHLORIDE 95 mmol/L (97-110); GLUCOSE 198 mg/dl (70-220); POTASSIUM 4.1 mmol/L (3.5-5.1); SODIUM 136 mmol/L (135-144)
[2018-03-12 07:52] LABS: CREATININE 13.99 mg/dl (0.44-1.00)
[2018-03-12] MEDS: SEVELAMER CARBONATE 800 MG TABLET PO ×3 (08:07→17:49)
[2018-03-12] MEDS: CALCIUM ACETATE 667 MG CAP PO ×3 (08:08→17:48)
[2018-03-12] MEDS: HYDROCORTISONE 5 MG TAB PO ×3 (08:08→20:02)
[2018-03-12] MEDS: BUSPIRONE 5 MG TAB PO ×2 (08:09→20:02)
[2018-03-12] MEDS: CINACALCET 30 MG TAB PO (08:09)
[2018-03-12] MEDS: DIPHENHYDRAMINE 50 MG INJ IV ×3 (08:09→20:02)
[2018-03-12] MEDS: INSULIN ASPART [NOVOLOG] 3 ML PEN SC ×4 (08:12→20:02)
[2018-03-12] MEDS: HYDROmorphONE 2 MG TAB PO ×2 (11:05→17:49)
[2018-03-12] MEDS: ONDANSETRON 4 MG INJ IV (12:45)
[2018-03-12] MEDS: EPOETIN 10000 UNITS/1 ML INJ (ESRD) SC (17:48)
[2018-03-12] MEDS: NPH, HUMAN INSULIN ISOPHANE 3ML VIAL SC (20:00)
[2018-03-12] MEDS: INSULIN DETEMIR [LEVEMIR] (100 UNITS/ML) SYG SC (20:00)
[2018-03-12] MEDS: SERTRALINE 50 MG TAB PO (20:02)
[2018-03-13] MEDS: DIPHENHYDRAMINE 50 MG INJ IV ×4 (01:53→20:34)
[2018-03-13] MEDS: ACCUCHECK AT 2AM (Patients on SS coverage) XX (01:57)
[2018-03-13] MEDS: ONDANSETRON 4 MG INJ IV (04:20)
[2018-03-13] MEDS: HYDROmorphONE 2 MG TAB PO ×2 (04:20→23:47)
[2018-03-13] MEDS: PANTOPRAZOLE 40 MG INJ IV (05:33)
[2018-03-13] MEDS: DIAZEPAM 5 MG TAB PO ×3 (05:33→20:28)
[2018-03-13] MEDS: LEVOTHYROXINE 150 MCG TAB PO (05:36)
[2018-03-13] MEDS: INSULIN ASPART [NOVOLOG] 3 ML PEN SC ×4 (07:53→20:40)
[2018-03-13] MEDS: SEVELAMER CARBONATE 800 MG TABLET PO ×3 (07:59→17:06)
[2018-03-13] MEDS: HYDROCORTISONE 5 MG TAB PO ×3 (08:00→20:28)
[2018-03-13] MEDS: CALCIUM ACETATE 667 MG CAP PO ×3 (08:00→17:05)
[2018-03-13] MEDS: BUSPIRONE 5 MG TAB PO ×2 (08:01→20:27)
[2018-03-13] MEDS: CINACALCET 30 MG TAB PO (08:01)
[2018-03-13 09:01] LABS: ANION GAP 19 (8-16); BLOOD UREA NITROGEN 66 mg/dl (7-20); CALCIUM 7.9 mg/dl (8.4-10.2); CARBON DIOXIDE 27 mmol/L (21-31); CHLORIDE 95 mmol/L (97-110); GLUCOSE 138 mg/dl (70-220); POTASSIUM 3.8 mmol/L (3.5-5.1); SODIUM 137 mmol/L (135-144)
[2018-03-13 09:11] LABS: CREATININE 13.48 mg/dl (0.44-1.00)
[2018-03-13] MEDS: HYDROCODONE/APAP (10/325) TAB PO ×2 (09:53→16:42)
[2018-03-13] MEDS: NPH, HUMAN INSULIN ISOPHANE 3ML VIAL SC (20:27)
[2018-03-13] MEDS: SERTRALINE 50 MG TAB PO (20:28)
[2018-03-13] MEDS: INSULIN DETEMIR [LEVEMIR] (100 UNITS/ML) SYG SC (20:32)
[2018-03-14] MEDS: ACCUCHECK AT 2AM (Patients on SS coverage) XX (02:00)
[2018-03-14] MEDS: DIPHENHYDRAMINE 50 MG INJ IV ×4 (02:32→20:42)
[2018-03-14] MEDS: PANTOPRAZOLE 40 MG INJ IV (05:11)
[2018-03-14] MEDS: DIAZEPAM 5 MG TAB PO ×3 (05:11→22:57)
[2018-03-14] MEDS: LEVOTHYROXINE 150 MCG TAB PO (05:13)
[2018-03-14 06:24] LABS: ADD MAN DIFF? NO
[2018-03-14 06:26] LABS: WHITE BLOOD COUNT 14.2 10^3/ul (4.8-10.8)
[2018-03-14 06:26] LABS: BASOPHIL # 0.1 10^3/ul (0.0-0.1); BASOPHILS % 0.5 % (0.0-2.0); EOSINOPHILS # 0.1 10^3/ul (0.0-0.5); EOSINOPHILS % 0.8 % (0.0-7.0); HEMATOCRIT 29.2 % (37.0-47.0); HEMOGLOBIN 9.1 g/dl (12.0-16.0); LYMPHOCYTES % 6.8 % (15.0-51.0); MEAN CORPUSCULAR HGB CONC 31.2 g/dl (32.0-37.0); MEAN CORPUSCULAR VOLUME 102.8 fl (82.0-101.0); MEAN PLATELET VOLUME 10.6 fl (7.4-10.4); MONOCYTE # 0.7 10^3/ul (0.3-0.9); MONOCYTES % 4.6 % (0.0-11.0); NEUTROPHIL # 12.3 10^3/ul (1.6-7.5); NEUTROPHILS % 86.6 % (39.0-77.0); PLATELET COUNT 203 10^3/UL (140-415); RED BLOOD COUNT 2.84 10^6/ul (4.20-5.40); RED CELL DISTRIBUTION WIDTH 13.5 % (11.5-14.5)
[2018-03-14 07:00] LABS: ANION GAP 17 (8-16); BLOOD UREA NITROGEN 73 mg/dl (7-20); CALCIUM 8.1 mg/dl (8.4-10.2); CARBON DIOXIDE 28 mmol/L (21-31); CHLORIDE 93 mmol/L (97-110); GLUCOSE 190 mg/dl (70-220); POTASSIUM 4.2 mmol/L (3.5-5.1); SODIUM 134 mmol/L (135-144)
[2018-03-14 07:08] LABS: CREATININE 13.75 mg/dl (0.44-1.00)
[2018-03-14] MEDS: HYDROCORTISONE 5 MG TAB PO ×3 (08:14→20:42)
[2018-03-14] MEDS: CALCIUM ACETATE 667 MG CAP PO ×3 (08:14→17:17)
[2018-03-14] MEDS: SEVELAMER CARBONATE 800 MG TABLET PO ×3 (08:15→17:17)
[2018-03-14] MEDS: BUSPIRONE 5 MG TAB PO ×2 (08:15→20:42)
[2018-03-14] MEDS: CINACALCET 30 MG TAB PO (08:15)
[2018-03-14] MEDS: INSULIN ASPART [NOVOLOG] 3 ML PEN SC ×4 (08:21→20:56)
[2018-03-14] MEDS: ONDANSETRON 4 MG INJ IV ×2 (11:00→17:22)
[2018-03-14] MEDS: HYDROmorphONE 2 MG TAB PO (17:17)
[2018-03-14] MEDS: EPOETIN 10000 UNITS/1 ML INJ (ESRD) SC (17:19)
[2018-03-14] MEDS: SERTRALINE 50 MG TAB PO (20:42)
[2018-03-14] MEDS: HYDROCODONE/APAP (10/325) TAB PO (20:42)
[2018-03-14] MEDS: INSULIN DETEMIR [LEVEMIR] (100 UNITS/ML) SYG SC (20:56)
[2018-03-14] MEDS: NPH, HUMAN INSULIN ISOPHANE 3ML VIAL SC (20:56)
[2018-03-15] MEDS: ONDANSETRON 4 MG INJ IV ×2 (00:43→14:09)
[2018-03-15] MEDS: HYDROmorphONE 2 MG TAB PO ×3 (02:52→20:28)
[2018-03-15] MEDS: DIPHENHYDRAMINE 50 MG INJ IV ×4 (02:52→20:28)
[2018-03-15] MEDS: ACCUCHECK AT 2AM (Patients on SS coverage) XX (02:52)
[2018-03-15] MEDS: PANTOPRAZOLE 40 MG INJ IV (05:06)
[2018-03-15] MEDS: DIAZEPAM 5 MG TAB PO ×3 (05:06→22:21)
[2018-03-15] MEDS: LEVOTHYROXINE 150 MCG TAB PO (05:06)
[2018-03-15 06:37] LABS: ADD MAN DIFF? NO
[2018-03-15 06:40] LABS: BASOPHIL # 0.1 10^3/ul (0.0-0.1); BASOPHILS % 0.7 % (0.0-2.0); EOSINOPHILS # 0.1 10^3/ul (0.0-0.5); HEMATOCRIT 29.6 % (37.0-47.0); HEMOGLOBIN 9.3 g/dl (12.0-16.0); LYMPHOCYTES # 1.3 10^3/ul (0.8-2.9); LYMPHOCYTES % 10.6 % (15.0-51.0); MEAN CORPUSCULAR HEMOGLOBIN 32.4 pg (29.0-33.0); MEAN CORPUSCULAR HGB CONC 31.4 g/dl (32.0-37.0); MEAN CORPUSCULAR VOLUME 103.1 fl (82.0-101.0); MEAN PLATELET VOLUME 10.7 fl (7.4-10.4); MONOCYTE # 0.6 10^3/ul (0.3-0.9); MONOCYTES % 4.6 % (0.0-11.0); NEUTROPHIL # 10.1 10^3/ul (1.6-7.5); NEUTROPHILS % 82.3 % (39.0-77.0); PLATELET COUNT 196 10^3/UL (140-415); RED BLOOD COUNT 2.87 10^6/ul (4.20-5.40); RED CELL DISTRIBUTION WIDTH 13.6 % (11.5-14.5)
[2018-03-15 06:40] LABS: WHITE BLOOD COUNT 12.2 10^3/ul (4.8-10.8)
[2018-03-15 07:02] LABS: ANION GAP 18 (8-16); BLOOD UREA NITROGEN 73 mg/dl (7-20); CALCIUM 8.1 mg/dl (8.4-10.2); CARBON DIOXIDE 27 mmol/L (21-31); CHLORIDE 93 mmol/L (97-110); GLUCOSE 247 mg/dl (70-220); POTASSIUM 4.4 mmol/L (3.5-5.1); SODIUM 134 mmol/L (135-144)
[2018-03-15 07:11] LABS: CREATININE 14.29 mg/dl (0.44-1.00)
[2018-03-15] MEDS: CALCIUM ACETATE 667 MG CAP PO ×3 (08:00→18:11)
[2018-03-15] MEDS: SEVELAMER CARBONATE 800 MG TABLET PO ×3 (08:00→18:11)
[2018-03-15] MEDS: CINACALCET 30 MG TAB PO (08:14)
[2018-03-15] MEDS: HYDROCORTISONE 5 MG TAB PO ×3 (08:14→20:28)
[2018-03-15] MEDS: BUSPIRONE 5 MG TAB PO ×2 (08:15→20:28)
[2018-03-15] MEDS: INSULIN ASPART [NOVOLOG] 3 ML PEN SC ×4 (08:30→20:50)
[2018-03-15] MEDS: TRIMETHOPRIM/SULFAMETHOX (DS) TAB PO (14:15)
[2018-03-15] MEDS: INSULIN DETEMIR [LEVEMIR] (100 UNITS/ML) SYG SC (20:51)
[2018-03-15] MEDS: NPH, HUMAN INSULIN ISOPHANE 3ML VIAL SC (20:52)
[2018-03-15] MEDS: SERTRALINE 50 MG TAB PO (21:39)
[2018-03-16] MEDS: HYDROmorphONE 2 MG TAB PO ×3 (01:56→15:37)
[2018-03-16] MEDS: DIPHENHYDRAMINE 50 MG INJ IV ×4 (01:56→21:31)
[2018-03-16] MEDS: ACCUCHECK AT 2AM (Patients on SS coverage) XX (02:30)
[2018-03-16] MEDS: PANTOPRAZOLE 40 MG INJ IV (05:59)
[2018-03-16] MEDS: DIAZEPAM 5 MG TAB PO ×3 (06:00→21:31)
[2018-03-16] MEDS: LEVOTHYROXINE 150 MCG TAB PO (06:00)
[2018-03-16 08:17] LABS: ADD MAN DIFF? NO
[2018-03-16 08:21] LABS: WHITE BLOOD COUNT 11.6 10^3/ul (4.8-10.8)
[2018-03-16 08:21] LABS: BASOPHIL # 0.1 10^3/ul (0.0-0.1); BASOPHILS % 0.4 % (0.0-2.0); EOSINOPHILS # 0.1 10^3/ul (0.0-0.5); HEMATOCRIT 30.3 % (37.0-47.0); HEMOGLOBIN 9.6 g/dl (12.0-16.0); LYMPHOCYTES % 8.6 % (15.0-51.0); MEAN CORPUSCULAR HEMOGLOBIN 32.9 pg (29.0-33.0); MEAN CORPUSCULAR HGB CONC 31.7 g/dl (32.0-37.0); MEAN CORPUSCULAR VOLUME 103.8 fl (82.0-101.0); MEAN PLATELET VOLUME 10.3 fl (7.4-10.4); MONOCYTE # 0.4 10^3/ul (0.3-0.9); MONOCYTES % 3.7 % (0.0-11.0); NEUTROPHILS % 85.6 % (39.0-77.0); PLATELET COUNT 202 10^3/UL (140-415); RED BLOOD COUNT 2.92 10^6/ul (4.20-5.40); RED CELL DISTRIBUTION WIDTH 13.5 % (11.5-14.5)
[2018-03-16] MEDS: ONDANSETRON 4 MG INJ IV (08:51)
[2018-03-16] MEDS: CINACALCET 30 MG TAB PO (08:56)
[2018-03-16] MEDS: HYDROCORTISONE 5 MG TAB PO ×3 (08:56→20:48)
[2018-03-16] MEDS: CALCIUM ACETATE 667 MG CAP PO ×3 (08:56→18:06)
[2018-03-16] MEDS: TRIMETHOPRIM/SULFAMETHOX (DS) TAB PO (08:57)
[2018-03-16] MEDS: BUSPIRONE 5 MG TAB PO ×2 (08:57→20:47)
[2018-03-16] MEDS: SEVELAMER CARBONATE 800 MG TABLET PO ×3 (08:57→18:07)
[2018-03-16] MEDS: INSULIN ASPART [NOVOLOG] 3 ML PEN SC ×4 (08:59→20:52)
[2018-03-16] MEDS: SERTRALINE 50 MG TAB PO (20:48)
[2018-03-16] MEDS: INSULIN DETEMIR [LEVEMIR] (100 UNITS/ML) SYG SC (20:53)
[2018-03-16] MEDS: NPH, HUMAN INSULIN ISOPHANE 3ML VIAL SC (20:54)
[2018-03-17] MEDS: ONDANSETRON 4 MG INJ IV ×2 (00:19→09:35)
[2018-03-17] MEDS: ACCUCHECK AT 2AM (Patients on SS coverage) XX (02:25)
[2018-03-17] MEDS: INSULIN ASPART [NOVOLOG] 3 ML PEN SC ×5 (02:28→20:52)
[2018-03-17] MEDS: DIPHENHYDRAMINE 50 MG INJ IV ×4 (03:21→21:49)
[2018-03-17] MEDS: HYDROmorphONE 2 MG TAB PO ×4 (04:20→21:50)
[2018-03-17] MEDS: LEVOTHYROXINE 150 MCG TAB PO (05:40)
[2018-03-17] MEDS: PANTOPRAZOLE 40 MG INJ IV (05:45)
[2018-03-17 05:59] LABS: ADD MAN DIFF? NO
[2018-03-17] MEDS: DIAZEPAM 5 MG TAB PO ×3 (06:00→20:53)
[2018-03-17 06:02] LABS: BASOPHIL # 0.1 10^3/ul (0.0-0.1); BASOPHILS % 0.5 % (0.0-2.0); EOSINOPHILS # 0.1 10^3/ul (0.0-0.5); EOSINOPHILS % 1.1 % (0.0-7.0); HEMATOCRIT 29.7 % (37.0-47.0); HEMOGLOBIN 9.6 g/dl (12.0-16.0); LYMPHOCYTES # 1.1 10^3/ul (0.8-2.9); MEAN CORPUSCULAR HEMOGLOBIN 33.7 pg (29.0-33.0); MEAN CORPUSCULAR HGB CONC 32.3 g/dl (32.0-37.0); MEAN CORPUSCULAR VOLUME 104.2 fl (82.0-101.0); MEAN PLATELET VOLUME 10.6 fl (7.4-10.4); MONOCYTE # 0.4 10^3/ul (0.3-0.9); MONOCYTES % 3.7 % (0.0-11.0); NEUTROPHIL # 9.4 10^3/ul (1.6-7.5); NEUTROPHILS % 83.7 % (39.0-77.0); PLATELET COUNT 226 10^3/UL (140-415); RED BLOOD COUNT 2.85 10^6/ul (4.20-5.40); RED CELL DISTRIBUTION WIDTH 13.4 % (11.5-14.5)
[2018-03-17 06:02] LABS: WHITE BLOOD COUNT 11.3 10^3/ul (4.8-10.8)
[2018-03-17] MEDS: TRIMETHOPRIM/SULFAMETHOX (DS) TAB PO (09:27)
[2018-03-17] MEDS: BUSPIRONE 5 MG TAB PO ×2 (09:27→20:53)
[2018-03-17] MEDS: CALCIUM ACETATE 667 MG CAP PO ×3 (09:27→18:40)
[2018-03-17] MEDS: CINACALCET 30 MG TAB PO (09:27)
[2018-03-17] MEDS: SEVELAMER CARBONATE 800 MG TABLET PO ×3 (09:27→18:40)
[2018-03-17] MEDS: HYDROCORTISONE 5 MG TAB PO ×3 (11:13→20:53)
[2018-03-17 12:22] LABS: FLD RBC 0 /uL; FLD WBC 2 /cmm
[2018-03-17 12:25] LABS: FLD CLARITY CLEAR; FLD COLOR COLORLESS
[2018-03-17 12:25] LABS: FLD TYPE ABDOMINAL
[2018-03-17] MEDS: HEPARIN 1000 UNITS/ML 10 ML INJ CATHETER ×2 (16:00→17:46)
[2018-03-17] MEDS: EPOETIN 10000 UNITS/1 ML INJ (ESRD) SC (18:41)
[2018-03-17] MEDS: INSULIN DETEMIR [LEVEMIR] (100 UNITS/ML) SYG SC (20:49)
[2018-03-17] MEDS: NPH, HUMAN INSULIN ISOPHANE 3ML VIAL SC (20:50)
[2018-03-17] MEDS: SERTRALINE 50 MG TAB PO (20:53)
[2018-03-18] MEDS: ACCUCHECK AT 2AM (Patients on SS coverage) XX (02:24)
[2018-03-18] MEDS: DIPHENHYDRAMINE 50 MG INJ IV ×4 (03:52→21:58)
[2018-03-18] MEDS: HYDROmorphONE 2 MG TAB PO ×4 (03:53→17:55)
[2018-03-18] MEDS: PANTOPRAZOLE 40 MG INJ IV (05:28)
[2018-03-18] MEDS: LEVOTHYROXINE 150 MCG TAB PO (05:28)
[2018-03-18] MEDS: DIAZEPAM 5 MG TAB PO ×3 (05:28→22:03)
[2018-03-18 05:51] LABS: ADD MAN DIFF? NO
[2018-03-18 06:02] LABS: WHITE BLOOD COUNT 11.3 10^3/ul (4.8-10.8)
[2018-03-18 06:02] LABS: BASOPHIL # 0.1 10^3/ul (0.0-0.1); BASOPHILS % 0.4 % (0.0-2.0); EOSINOPHILS # 0.1 10^3/ul (0.0-0.5); EOSINOPHILS % 1.2 % (0.0-7.0); HEMATOCRIT 31.1 % (37.0-47.0); HEMOGLOBIN 9.9 g/dl (12.0-16.0); LYMPHOCYTES % 8.6 % (15.0-51.0); MEAN CORPUSCULAR HEMOGLOBIN 33.3 pg (29.0-33.0); MEAN CORPUSCULAR HGB CONC 31.8 g/dl (32.0-37.0); MEAN CORPUSCULAR VOLUME 104.7 fl (82.0-101.0); MEAN PLATELET VOLUME 10.4 fl (7.4-10.4); MONOCYTE # 0.4 10^3/ul (0.3-0.9); MONOCYTES % 3.8 % (0.0-11.0); NEUTROPHIL # 9.6 10^3/ul (1.6-7.5); NEUTROPHILS % 84.8 % (39.0-77.0); PLATELET COUNT 225 10^3/UL (140-415); RED BLOOD COUNT 2.97 10^6/ul (4.20-5.40); RED CELL DISTRIBUTION WIDTH 13.7 % (11.5-14.5)
[2018-03-18 06:33] LABS: ANION GAP 19 (8-16); BLOOD UREA NITROGEN 71 mg/dl (7-20); CALCIUM 7.8 mg/dl (8.4-10.2); CARBON DIOXIDE 26 mmol/L (21-31); CHLORIDE 94 mmol/L (97-110); GLUCOSE 271 mg/dl (70-220); POTASSIUM 4.7 mmol/L (3.5-5.1); SODIUM 134 mmol/L (135-144)
[2018-03-18 06:48] LABS: CREATININE 13.26 mg/dl (0.44-1.00)
[2018-03-18] MEDS: CALCIUM ACETATE 667 MG CAP PO ×3 (08:54→17:54)
[2018-03-18] MEDS: SEVELAMER CARBONATE 800 MG TABLET PO ×3 (08:54→17:54)
[2018-03-18] MEDS: BUSPIRONE 5 MG TAB PO ×2 (08:55→21:04)
[2018-03-18] MEDS: TRIMETHOPRIM/SULFAMETHOX (DS) TAB PO (08:55)
[2018-03-18] MEDS: HYDROCORTISONE 5 MG TAB PO ×3 (08:55→20:52)
[2018-03-18] MEDS: INSULIN ASPART [NOVOLOG] 3 ML PEN SC ×4 (08:59→20:54)
[2018-03-18] MEDS: CINACALCET 30 MG TAB PO (09:03)
[2018-03-18] MEDS: ONDANSETRON 4 MG INJ IV (09:07)
[2018-03-18] MEDS: LANTHANUM 500 MG CHEW PO ×2 (12:46→17:54)
[2018-03-18] MEDS: SERTRALINE 50 MG TAB PO (20:52)
[2018-03-18] MEDS: INSULIN DETEMIR [LEVEMIR] (100 UNITS/ML) SYG SC (20:59)
[2018-03-18] MEDS: NPH, HUMAN INSULIN ISOPHANE 3ML VIAL SC (21:00)
[2018-03-19] MEDS: ACCUCHECK AT 2AM (Patients on SS coverage) XX (01:29)
[2018-03-19] MEDS: DIPHENHYDRAMINE 50 MG INJ IV ×3 (04:02→18:24)
[2018-03-19] MEDS: HYDROmorphONE 2 MG TAB PO (04:02)
[2018-03-19] MEDS: DIAZEPAM 5 MG TAB PO ×3 (06:05→22:06)
[2018-03-19] MEDS: PANTOPRAZOLE 40 MG INJ IV (06:05)
[2018-03-19] MEDS: LEVOTHYROXINE 150 MCG TAB PO (06:05)
[2018-03-19 06:15] LABS: ADD MAN DIFF? NO
[2018-03-19 06:32] LABS: BASOPHIL # 0.1 10^3/ul (0.0-0.1); BASOPHILS % 0.4 % (0.0-2.0); EOSINOPHILS # 0.1 10^3/ul (0.0-0.5); EOSINOPHILS % 1.1 % (0.0-7.0); HEMATOCRIT 31.3 % (37.0-47.0); HEMOGLOBIN 9.8 g/dl (12.0-16.0); LYMPHOCYTES # 1.2 10^3/ul (0.8-2.9); LYMPHOCYTES % 10.3 % (15.0-51.0); MEAN CORPUSCULAR HEMOGLOBIN 32.6 pg (29.0-33.0); MEAN CORPUSCULAR HGB CONC 31.3 g/dl (32.0-37.0); MEAN PLATELET VOLUME 10.3 fl (7.4-10.4); MONOCYTE # 0.6 10^3/ul (0.3-0.9); MONOCYTES % 4.8 % (0.0-11.0); NEUTROPHIL # 9.8 10^3/ul (1.6-7.5); NEUTROPHILS % 82.3 % (39.0-77.0); PLATELET COUNT 200 10^3/UL (140-415); RED BLOOD COUNT 3.01 10^6/ul (4.20-5.40)
[2018-03-19 06:52] LABS: ANION GAP 22 (8-16); BLOOD UREA NITROGEN 75 mg/dl (7-20); CALCIUM 8.1 mg/dl (8.4-10.2); CARBON DIOXIDE 26 mmol/L (21-31); CHLORIDE 91 mmol/L (97-110); GLUCOSE 277 mg/dl (70-220); MAGNESIUM 2.5 mg/dl (1.7-2.5); PHOSPHORUS 4.4 mg/dl (2.5-4.9); POTASSIUM 4.4 mmol/L (3.5-5.1); SODIUM 135 mmol/L (135-144)
[2018-03-19] MEDS: LANTHANUM 500 MG CHEW PO ×3 (07:54→18:24)
[2018-03-19] MEDS: HYDROCODONE/APAP (10/325) TAB PO (07:54)
[2018-03-19] MEDS: CALCIUM ACETATE 667 MG CAP PO ×3 (07:55→18:24)
[2018-03-19] MEDS: SEVELAMER CARBONATE 800 MG TABLET PO ×3 (07:55→18:24)
[2018-03-19] MEDS: INSULIN ASPART [NOVOLOG] 3 ML PEN SC ×4 (08:35→22:03)
[2018-03-19] MEDS: TRIMETHOPRIM/SULFAMETHOX (DS) TAB PO (08:35)
[2018-03-19] MEDS: BUSPIRONE 5 MG TAB PO ×2 (08:36→20:36)
[2018-03-19] MEDS: HYDROCORTISONE 5 MG TAB PO ×3 (08:36→20:36)
[2018-03-19] MEDS: CINACALCET 30 MG TAB PO (08:36)
[2018-03-19] MEDS: ONDANSETRON 4 MG INJ IV (13:47)
[2018-03-19] MEDS: EPOETIN 10000 UNITS/1 ML INJ (ESRD) SC (18:30)
[2018-03-19] MEDS: LUBIPROSTONE 24 MCG CAP PO (20:36)
[2018-03-19] MEDS: SERTRALINE 50 MG TAB PO (20:36)
[2018-03-19] MEDS: DOCUSATE SODIUM 100 MG CAP PO (20:37)
[2018-03-19] MEDS: INSULIN DETEMIR [LEVEMIR] (100 UNITS/ML) SYG SC (20:41)
[2018-03-19] MEDS: NPH, HUMAN INSULIN ISOPHANE 3ML VIAL SC (20:52)
[2018-03-20] MEDS: HYDROmorphONE 2 MG TAB PO ×4 (00:09→22:19)
[2018-03-20] MEDS: DIPHENHYDRAMINE 50 MG INJ IV ×3 (00:10→18:49)
[2018-03-20] MEDS: INSULIN ASPART [NOVOLOG] 3 ML PEN SC ×4 (02:20→20:21)
[2018-03-20] MEDS: ACCUCHECK AT 2AM (Patients on SS coverage) XX (02:21)
[2018-03-20 05:34] LABS: ADD MAN DIFF? NO
[2018-03-20] MEDS: LEVOTHYROXINE 150 MCG TAB PO (05:35)
[2018-03-20] MEDS: PANTOPRAZOLE 40 MG INJ IV (05:35)
[2018-03-20] MEDS: DIAZEPAM 5 MG TAB PO ×3 (05:35→22:19)
[2018-03-20 05:37] LABS: WHITE BLOOD COUNT 12.3 10^3/ul (4.8-10.8)
[2018-03-20 05:37] LABS: BASOPHIL # 0.1 10^3/ul (0.0-0.1); BASOPHILS % 0.4 % (0.0-2.0); EOSINOPHILS # 0.1 10^3/ul (0.0-0.5); EOSINOPHILS % 0.8 % (0.0-7.0); HEMATOCRIT 32.2 % (37.0-47.0); HEMOGLOBIN 10.3 g/dl (12.0-16.0); LYMPHOCYTES # 1.1 10^3/ul (0.8-2.9); LYMPHOCYTES % 9.2 % (15.0-51.0); MEAN CORPUSCULAR HEMOGLOBIN 33.2 pg (29.0-33.0); MEAN CORPUSCULAR VOLUME 103.9 fl (82.0-101.0); MEAN PLATELET VOLUME 10.3 fl (7.4-10.4); MONOCYTE # 0.4 10^3/ul (0.3-0.9); NEUTROPHIL # 10.6 10^3/ul (1.6-7.5); NEUTROPHILS % 85.7 % (39.0-77.0); PLATELET COUNT 198 10^3/UL (140-415); RED CELL DISTRIBUTION WIDTH 14.2 % (11.5-14.5)
[2018-03-20 05:54] LABS: ANION GAP 20 (8-16); BLOOD UREA NITROGEN 76 mg/dl (7-20); CALCIUM 8.3 mg/dl (8.4-10.2); CARBON DIOXIDE 27 mmol/L (21-31); CHLORIDE 91 mmol/L (97-110); GLUCOSE 271 mg/dl (70-220); POTASSIUM 4.2 mmol/L (3.5-5.1); SODIUM 134 mmol/L (135-144)
[2018-03-20] MEDS: LANTHANUM 500 MG CHEW PO ×3 (08:20→16:51)
[2018-03-20] MEDS: SEVELAMER CARBONATE 800 MG TABLET PO ×3 (08:21→16:52)
[2018-03-20] MEDS: DOCUSATE SODIUM 100 MG CAP PO ×2 (08:21→20:16)
[2018-03-20] MEDS: BUSPIRONE 5 MG TAB PO ×2 (08:21→20:15)
[2018-03-20] MEDS: HYDROCORTISONE 5 MG TAB PO ×3 (08:21→20:15)
[2018-03-20] MEDS: LUBIPROSTONE 24 MCG CAP PO ×2 (08:21→20:16)
[2018-03-20] MEDS: CINACALCET 30 MG TAB PO (08:21)
[2018-03-20] MEDS: CALCIUM ACETATE 667 MG CAP PO ×3 (08:22→16:51)
[2018-03-20] MEDS: ONDANSETRON 4 MG INJ IV ×2 (08:41→17:12)
[2018-03-20] MEDS ORDERED: NA PHOSPHATE/BIPHOS 133 ML ENEMA PR (15:30)
[2018-03-20] MEDS ORDERED: MINERAL OIL 133 ML ENEMA PR (18:00)
[2018-03-20] MEDS: MINERAL OIL 133 ML ENEMA PR (20:15)
[2018-03-20] MEDS: SERTRALINE 50 MG TAB PO (20:16)
[2018-03-20] MEDS: INSULIN DETEMIR [LEVEMIR] (100 UNITS/ML) SYG SC (20:20)
[2018-03-20] MEDS: NPH, HUMAN INSULIN ISOPHANE 3ML VIAL SC (20:22)
[2018-03-21] MEDS: DIPHENHYDRAMINE 50 MG INJ IV ×5 (00:41→19:59)
[2018-03-21] MEDS: INSULIN ASPART [NOVOLOG] 3 ML PEN SC ×4 (01:58→20:25)
[2018-03-21] MEDS: ACCUCHECK AT 2AM (Patients on SS coverage) XX (02:04)
[2018-03-21] MEDS: HYDROCODONE/APAP (10/325) TAB PO (02:04)
[2018-03-21] MEDS: HYDROmorphONE 2 MG TAB PO ×3 (04:47→17:30)
[2018-03-21] MEDS: BISACODYL (EC) 5 MG TAB PO (04:47)
[2018-03-21] MEDS: PANTOPRAZOLE 40 MG INJ IV (05:21)
[2018-03-21] MEDS: DIAZEPAM 5 MG TAB PO ×3 (05:21→21:19)
[2018-03-21] MEDS: LEVOTHYROXINE 150 MCG TAB PO (06:48)
[2018-03-21] MEDS: LANTHANUM 500 MG CHEW PO ×3 (07:50→17:41)
[2018-03-21] MEDS ORDERED: POLYETHYLENE GLYCOL 17 GM PACKET PO (08:00)
[2018-03-21] MEDS: LUBIPROSTONE 24 MCG CAP PO ×2 (08:24→20:27)
[2018-03-21] MEDS: CINACALCET 30 MG TAB PO (08:25)
[2018-03-21] MEDS: DOCUSATE SODIUM 100 MG CAP PO ×2 (08:25→20:27)
[2018-03-21] MEDS: CALCIUM ACETATE 667 MG CAP PO ×3 (08:25→17:42)
[2018-03-21] MEDS: SEVELAMER CARBONATE 800 MG TABLET PO ×3 (08:26→17:42)
[2018-03-21] MEDS: BUSPIRONE 5 MG TAB PO ×2 (08:26→20:27)
[2018-03-21] MEDS: HYDROCORTISONE 5 MG TAB PO ×3 (08:26→20:27)
[2018-03-21] MEDS: ONDANSETRON 4 MG INJ IV (13:48)
[2018-03-21] MEDS: EPOETIN 10000 UNITS/1 ML INJ (ESRD) SC (17:41)
[2018-03-21] MEDS: INSULIN DETEMIR [LEVEMIR] (100 UNITS/ML) SYG SC (20:23)
[2018-03-21] MEDS: NPH, HUMAN INSULIN ISOPHANE 3ML VIAL SC (20:24)
[2018-03-21] MEDS: SERTRALINE 50 MG TAB PO (21:20)
[2018-03-21] MEDS: NA PHOSPHATE/BIPHOS 133 ML ENEMA PR (21:20)
[2018-03-21] MEDS: LACTULOSE 30ML CUP PO (21:20)
[2018-03-22] MEDS: DIPHENHYDRAMINE 50 MG INJ IV ×4 (01:39→20:32)
[2018-03-22] MEDS: ACCUCHECK AT 2AM (Patients on SS coverage) XX (02:00)
[2018-03-22] MEDS: HYDROmorphONE 2 MG TAB PO ×2 (02:32→08:13)
[2018-03-22 06:14] LABS: ADD MAN DIFF? NO
[2018-03-22] MEDS: DIAZEPAM 5 MG TAB PO ×3 (06:33→21:34)
[2018-03-22] MEDS: LEVOTHYROXINE 150 MCG TAB PO (06:33)
[2018-03-22] MEDS: PANTOPRAZOLE 40 MG INJ IV (06:33)
[2018-03-22 06:36] LABS: WHITE BLOOD COUNT 12.1 10^3/ul (4.8-10.8)
[2018-03-22 06:36] LABS: BASOPHIL # 0.1 10^3/ul (0.0-0.1); BASOPHILS % 0.5 % (0.0-2.0); EOSINOPHILS # 0.2 10^3/ul (0.0-0.5); EOSINOPHILS % 1.3 % (0.0-7.0); HEMATOCRIT 31.1 % (37.0-47.0); HEMOGLOBIN 9.7 g/dl (12.0-16.0); LYMPHOCYTES # 1.1 10^3/ul (0.8-2.9); LYMPHOCYTES % 9.4 % (15.0-51.0); MEAN CORPUSCULAR HEMOGLOBIN 32.9 pg (29.0-33.0); MEAN CORPUSCULAR HGB CONC 31.2 g/dl (32.0-37.0); MEAN CORPUSCULAR VOLUME 105.4 fl (82.0-101.0); MEAN PLATELET VOLUME 10.9 fl (7.4-10.4); MONOCYTE # 0.4 10^3/ul (0.3-0.9); MONOCYTES % 2.9 % (0.0-11.0); NEUTROPHIL # 10.3 10^3/ul (1.6-7.5); NEUTROPHILS % 85.2 % (39.0-77.0); NUCLEATED RED BLOOD CELLS% 0.2 /100WBC (0.0-0.0); PLATELET COUNT 187 10^3/UL (140-415); RED BLOOD COUNT 2.95 10^6/ul (4.20-5.40); RED CELL DISTRIBUTION WIDTH 14.6 % (11.5-14.5)
[2018-03-22 06:56] LABS: ANION GAP 22 (8-16); BLOOD UREA NITROGEN 76 mg/dl (7-20); CALCIUM 8.4 mg/dl (8.4-10.2); CARBON DIOXIDE 29 mmol/L (21-31); CHLORIDE 92 mmol/L (97-110); GLUCOSE 244 mg/dl (70-220); POTASSIUM 4.3 mmol/L (3.5-5.1); SODIUM 139 mmol/L (135-144)
[2018-03-22] MEDS: BUSPIRONE 5 MG TAB PO ×2 (08:33→20:32)
[2018-03-22] MEDS: SEVELAMER CARBONATE 800 MG TABLET PO ×3 (08:33→17:37)
[2018-03-22] MEDS: DOCUSATE SODIUM 100 MG CAP PO ×2 (08:33→20:31)
[2018-03-22] MEDS: CALCIUM ACETATE 667 MG CAP PO ×3 (08:33→17:37)
[2018-03-22] MEDS: LUBIPROSTONE 24 MCG CAP PO ×2 (08:33→20:31)
[2018-03-22] MEDS: CINACALCET 30 MG TAB PO (08:34)
[2018-03-22] MEDS: LANTHANUM 500 MG CHEW PO ×3 (08:34→17:38)
[2018-03-22] MEDS: HYDROCORTISONE 5 MG TAB PO ×3 (08:34→20:32)
[2018-03-22] MEDS: INSULIN ASPART [NOVOLOG] 3 ML PEN SC ×4 (08:36→20:39)
[2018-03-22] MEDS: SERTRALINE 50 MG TAB PO (20:31)
[2018-03-22] MEDS: INSULIN DETEMIR [LEVEMIR] (100 UNITS/ML) SYG SC (20:38)
[2018-03-22] MEDS: NPH, HUMAN INSULIN ISOPHANE 3ML VIAL SC (20:39)
[2018-03-23] MEDS: ACCUCHECK AT 2AM (Patients on SS coverage) XX (02:00)
[2018-03-23] MEDS: DIPHENHYDRAMINE 50 MG INJ IV ×3 (02:11→17:42)
[2018-03-23] MEDS: DIAZEPAM 5 MG TAB PO ×3 (06:16→21:54)
[2018-03-23] MEDS: PANTOPRAZOLE 40 MG INJ IV ×2 (06:16→22:48)
[2018-03-23] MEDS: LEVOTHYROXINE 150 MCG TAB PO (06:16)
[2018-03-23] MEDS: LANTHANUM 500 MG CHEW PO ×3 (09:05→17:42)
[2018-03-23] MEDS: DOCUSATE SODIUM 100 MG CAP PO ×2 (09:05→20:48)
[2018-03-23] MEDS: HYDROCORTISONE 5 MG TAB PO ×3 (09:05→21:00)
[2018-03-23] MEDS: SEVELAMER CARBONATE 800 MG TABLET PO ×3 (09:05→17:42)
[2018-03-23] MEDS: INSULIN ASPART [NOVOLOG] 3 ML PEN SC ×6 (09:05→20:56)
[2018-03-23] MEDS: CALCIUM ACETATE 667 MG CAP PO ×3 (09:06→17:42)
[2018-03-23] MEDS: LUBIPROSTONE 24 MCG CAP PO ×2 (09:06→20:48)
[2018-03-23] MEDS: CINACALCET 30 MG TAB PO (09:06)
[2018-03-23] MEDS: BUSPIRONE 5 MG TAB PO ×2 (09:06→20:48)
[2018-03-23] MEDS: ONDANSETRON 4 MG INJ IV (09:14)
[2018-03-23 14:50] LABS: ADD MAN DIFF? NO
[2018-03-23 14:53] LABS: BASOPHIL # 0.1 10^3/ul (0.0-0.1); BASOPHILS % 0.4 % (0.0-2.0); EOSINOPHILS # 0.2 10^3/ul (0.0-0.5); EOSINOPHILS % 1.6 % (0.0-7.0); HEMATOCRIT 31.2 % (37.0-47.0); HEMOGLOBIN 9.8 g/dl (12.0-16.0); LYMPHOCYTES # 0.8 10^3/ul (0.8-2.9); LYMPHOCYTES % 7.2 % (15.0-51.0); MEAN CORPUSCULAR HEMOGLOBIN 33.6 pg (29.0-33.0); MEAN CORPUSCULAR HGB CONC 31.4 g/dl (32.0-37.0); MEAN CORPUSCULAR VOLUME 106.8 fl (82.0-101.0); MEAN PLATELET VOLUME 10.3 fl (7.4-10.4); MONOCYTE # 0.3 10^3/ul (0.3-0.9); MONOCYTES % 2.9 % (0.0-11.0); NEUTROPHIL # 10.2 10^3/ul (1.6-7.5); NUCLEATED RED BLOOD CELLS% 0.3 /100WBC (0.0-0.0); PLATELET COUNT 173 10^3/UL (140-415); RED BLOOD COUNT 2.92 10^6/ul (4.20-5.40); RED CELL DISTRIBUTION WIDTH 14.6 % (11.5-14.5)
[2018-03-23 14:53] LABS: WHITE BLOOD COUNT 11.7 10^3/ul (4.8-10.8)
[2018-03-23 15:17] LABS: ANION GAP 18 (8-16); BLOOD UREA NITROGEN 78 mg/dl (7-20); CALCIUM 8.3 mg/dl (8.4-10.2); CARBON DIOXIDE 30 mmol/L (21-31); CHLORIDE 92 mmol/L (97-110); GLUCOSE 171 mg/dl (70-220); SODIUM 136 mmol/L (135-144)
[2018-03-23 15:29] LABS: CREATININE 12.93 mg/dl (0.44-1.00)
[2018-03-23] MEDS: NPH, HUMAN INSULIN ISOPHANE 3ML VIAL SC (17:44)
[2018-03-23] MEDS: METOCLOPRAMIDE 10 MG INJ IV ×2 (18:59→22:57)
[2018-03-23] MEDS: SERTRALINE 50 MG TAB PO (20:48)
[2018-03-23] MEDS: INSULIN DETEMIR [LEVEMIR] (100 UNITS/ML) SYG SC (20:55)
[2018-03-24] MEDS: DIPHENHYDRAMINE 50 MG INJ IV ×3 (01:27→18:51)
[2018-03-24] MEDS: ACCUCHECK AT 2AM (Patients on SS coverage) XX (01:32)
[2018-03-24 05:12] LABS: ADD MAN DIFF? NO
[2018-03-24 05:27] LABS: BASOPHILS % 0.4 % (0.0-2.0); EOSINOPHILS # 0.2 10^3/ul (0.0-0.5); EOSINOPHILS % 1.6 % (0.0-7.0); HEMATOCRIT 32.7 % (37.0-47.0); HEMOGLOBIN 10.4 g/dl (12.0-16.0); LYMPHOCYTES # 0.8 10^3/ul (0.8-2.9); MEAN CORPUSCULAR HEMOGLOBIN 33.9 pg (29.0-33.0); MEAN CORPUSCULAR HGB CONC 31.8 g/dl (32.0-37.0); MEAN CORPUSCULAR VOLUME 106.5 fl (82.0-101.0); MEAN PLATELET VOLUME 10.5 fl (7.4-10.4); MONOCYTE # 0.3 10^3/ul (0.3-0.9); MONOCYTES % 2.9 % (0.0-11.0); NEUTROPHIL # 8.5 10^3/ul (1.6-7.5); NEUTROPHILS % 86.2 % (39.0-77.0); NUCLEATED RED BLOOD CELLS% 0.2 /100WBC (0.0-0.0); PLATELET COUNT 190 10^3/UL (140-415); RED BLOOD COUNT 3.07 10^6/ul (4.20-5.40); RED CELL DISTRIBUTION WIDTH 14.8 % (11.5-14.5)
[2018-03-24 05:27] LABS: WHITE BLOOD COUNT 9.9 10^3/ul (4.8-10.8)
[2018-03-24 06:01] LABS: ANION GAP 18 (8-16); BLOOD UREA NITROGEN 73 mg/dl (7-20); CALCIUM 8.5 mg/dl (8.4-10.2); CARBON DIOXIDE 28 mmol/L (21-31); CHLORIDE 93 mmol/L (97-110); GLUCOSE 364 mg/dl (70-220); POTASSIUM 4.4 mmol/L (3.5-5.1); SODIUM 135 mmol/L (135-144)
[2018-03-24] MEDS: METOCLOPRAMIDE 10 MG INJ IV ×4 (06:14→23:40)
[2018-03-24] MEDS: DIAZEPAM 5 MG TAB PO ×3 (06:15→23:39)
[2018-03-24] MEDS: PANTOPRAZOLE 40 MG INJ IV ×2 (06:15→17:49)
[2018-03-24 06:16] LABS: CREATININE 12.55 mg/dl (0.44-1.00)
[2018-03-24] MEDS: LEVOTHYROXINE 150 MCG TAB PO (06:18)
[2018-03-24] MEDS: HYDROCORTISONE 5 MG TAB PO ×3 (08:58→20:18)
[2018-03-24] MEDS: LANTHANUM 500 MG CHEW PO ×3 (08:58→17:49)
[2018-03-24] MEDS: SEVELAMER CARBONATE 800 MG TABLET PO ×3 (08:58→17:49)
[2018-03-24] MEDS: CALCIUM ACETATE 667 MG CAP PO ×3 (08:59→17:49)
[2018-03-24] MEDS: CINACALCET 30 MG TAB PO (08:59)
[2018-03-24] MEDS: LUBIPROSTONE 24 MCG CAP PO ×2 (09:00→20:19)
[2018-03-24] MEDS: BUSPIRONE 5 MG TAB PO ×2 (09:00→20:19)
[2018-03-24] MEDS: DOCUSATE SODIUM 100 MG CAP PO ×2 (09:00→20:19)
[2018-03-24] MEDS: INSULIN ASPART [NOVOLOG] 3 ML PEN SC ×6 (09:01→20:25)
[2018-03-24] MEDS: HYDROCODONE/APAP (10/325) TAB PO (17:49)
[2018-03-24] MEDS: EPOETIN 10000 UNITS/1 ML INJ (ESRD) SC (17:58)
[2018-03-24] MEDS: SERTRALINE 50 MG TAB PO (20:19)
[2018-03-24] MEDS: NPH, HUMAN INSULIN ISOPHANE 3ML VIAL SC (20:25)
[2018-03-24] MEDS: INSULIN DETEMIR [LEVEMIR] (100 UNITS/ML) SYG SC (20:26)
[2018-03-25] MEDS: DIPHENHYDRAMINE 50 MG INJ IV ×4 (01:05→21:09)
[2018-03-25] MEDS: ACCUCHECK AT 2AM (Patients on SS coverage) XX (01:09)
[2018-03-25] MEDS: HYDROCODONE/APAP (10/325) TAB PO ×2 (01:14→08:37)
[2018-03-25 04:51] LABS: ADD MAN DIFF? NO
[2018-03-25 04:57] LABS: BASOPHIL # 0.1 10^3/ul (0.0-0.1); BASOPHILS % 0.6 % (0.0-2.0); EOSINOPHILS # 0.2 10^3/ul (0.0-0.5); EOSINOPHILS % 1.5 % (0.0-7.0); HEMATOCRIT 33.1 % (37.0-47.0); HEMOGLOBIN 10.4 g/dl (12.0-16.0); MEAN CORPUSCULAR HEMOGLOBIN 33.4 pg (29.0-33.0); MEAN CORPUSCULAR HGB CONC 31.4 g/dl (32.0-37.0); MEAN CORPUSCULAR VOLUME 106.4 fl (82.0-101.0); MEAN PLATELET VOLUME 10.4 fl (7.4-10.4); MONOCYTE # 0.3 10^3/ul (0.3-0.9); MONOCYTES % 3.2 % (0.0-11.0); NEUTROPHIL # 8.6 10^3/ul (1.6-7.5); NEUTROPHILS % 83.7 % (39.0-77.0); NUCLEATED RED BLOOD CELLS% 0.2 /100WBC (0.0-0.0); PLATELET COUNT 191 10^3/UL (140-415); RED BLOOD COUNT 3.11 10^6/ul (4.20-5.40)
[2018-03-25 04:57] LABS: WHITE BLOOD COUNT 10.2 10^3/ul (4.8-10.8)
[2018-03-25 05:13] LABS: ANION GAP 16 (8-16); BLOOD UREA NITROGEN 75 mg/dl (7-20); CALCIUM 8.8 mg/dl (8.4-10.2); CARBON DIOXIDE 29 mmol/L (21-31); CHLORIDE 94 mmol/L (97-110); GLUCOSE 271 mg/dl (70-220); POTASSIUM 4.2 mmol/L (3.5-5.1); SODIUM 135 mmol/L (135-144)
[2018-03-25 05:24] LABS: CREATININE 12.63 mg/dl (0.44-1.00)
[2018-03-25] MEDS: DIAZEPAM 5 MG TAB PO ×3 (06:20→22:38)
[2018-03-25] MEDS: PANTOPRAZOLE 40 MG INJ IV ×2 (06:21→17:26)
[2018-03-25] MEDS: METOCLOPRAMIDE 10 MG INJ IV ×4 (06:21→23:42)
[2018-03-25] MEDS: LEVOTHYROXINE 150 MCG TAB PO (06:23)
[2018-03-25] MEDS: SEVELAMER CARBONATE 800 MG TABLET PO ×3 (08:32→17:26)
[2018-03-25] MEDS: BUSPIRONE 5 MG TAB PO ×2 (08:32→21:15)
[2018-03-25] MEDS: HYDROCORTISONE 5 MG TAB PO ×3 (08:32→21:14)
[2018-03-25] MEDS: CINACALCET 30 MG TAB PO (08:32)
[2018-03-25] MEDS: LANTHANUM 500 MG CHEW PO ×3 (08:33→17:26)
[2018-03-25] MEDS: LUBIPROSTONE 24 MCG CAP PO ×2 (08:33→21:15)
[2018-03-25] MEDS: DOCUSATE SODIUM 100 MG CAP PO ×2 (08:33→21:14)
[2018-03-25] MEDS: CALCIUM ACETATE 667 MG CAP PO ×3 (08:33→17:26)
[2018-03-25] MEDS: INSULIN ASPART [NOVOLOG] 3 ML PEN SC ×7 (08:43→22:43)
[2018-03-25] MEDS: SERTRALINE 50 MG TAB PO (21:15)
[2018-03-25] MEDS: NPH, HUMAN INSULIN ISOPHANE 3ML VIAL SC (21:20)
[2018-03-25] MEDS: INSULIN DETEMIR [LEVEMIR] (100 UNITS/ML) SYG SC (21:21)
[2018-03-26] MEDS: ACCUCHECK AT 2AM (Patients on SS coverage) XX (02:00)
[2018-03-26] MEDS: DIPHENHYDRAMINE 50 MG INJ IV ×4 (03:44→21:26)
[2018-03-26] MEDS: PANTOPRAZOLE 40 MG INJ IV ×2 (05:54→17:10)
[2018-03-26] MEDS: METOCLOPRAMIDE 10 MG INJ IV ×3 (05:55→17:10)
[2018-03-26] MEDS: DIAZEPAM 5 MG TAB PO ×3 (05:55→22:09)
[2018-03-26] MEDS: LEVOTHYROXINE 150 MCG TAB PO (06:01)
[2018-03-26 06:43] LABS: ANION GAP 19 (8-16); BLOOD UREA NITROGEN 66 mg/dl (7-20); CALCIUM 9.3 mg/dl (8.4-10.2); CARBON DIOXIDE 27 mmol/L (21-31); CHLORIDE 97 mmol/L (97-110); GLUCOSE 129 mg/dl (70-220); POTASSIUM 3.7 mmol/L (3.5-5.1); SODIUM 139 mmol/L (135-144)
[2018-03-26 06:52] LABS: CREATININE 12.33 mg/dl (0.44-1.00)
[2018-03-26] MEDS: INSULIN ASPART [NOVOLOG] 3 ML PEN SC ×7 (07:50→21:55)
[2018-03-26] MEDS: DOCUSATE SODIUM 100 MG CAP PO ×2 (08:40→22:09)
[2018-03-26] MEDS: LANTHANUM 500 MG CHEW PO ×3 (08:40→17:11)
[2018-03-26] MEDS: BUSPIRONE 5 MG TAB PO ×2 (08:40→22:09)
[2018-03-26] MEDS: CALCIUM ACETATE 667 MG CAP PO ×3 (08:40→17:11)
[2018-03-26] MEDS: CINACALCET 30 MG TAB PO (08:40)
[2018-03-26] MEDS: LUBIPROSTONE 24 MCG CAP PO ×2 (08:40→22:08)
[2018-03-26] MEDS: SEVELAMER CARBONATE 800 MG TABLET PO ×3 (08:41→17:11)
[2018-03-26] MEDS: HYDROCORTISONE 5 MG TAB PO ×3 (09:01→22:08)
[2018-03-26] MEDS: HYDROmorphONE 2 MG TAB PO (14:31)
[2018-03-26] MEDS: EPOETIN 10000 UNITS/1 ML INJ (ESRD) SC (17:31)
[2018-03-26] MEDS: NPH, HUMAN INSULIN ISOPHANE 3ML VIAL SC (21:53)
[2018-03-26] MEDS: INSULIN DETEMIR [LEVEMIR] (100 UNITS/ML) SYG SC (21:54)
[2018-03-26] MEDS: SERTRALINE 50 MG TAB PO (22:09)
[2018-03-27] MEDS: METOCLOPRAMIDE 10 MG INJ IV ×4 (00:16→17:20)
[2018-03-27] MEDS: ACCUCHECK AT 2AM (Patients on SS coverage) XX (01:56)
[2018-03-27] MEDS: HYDROmorphONE 2 MG TAB PO ×2 (02:06→07:42)
[2018-03-27] MEDS: DIPHENHYDRAMINE 50 MG INJ IV ×5 (03:05→23:32)
[2018-03-27] MEDS: BISACODYL (EC) 5 MG TAB PO (03:10)
[2018-03-27 06:16] LABS: ANION GAP 21 (8-16); BLOOD UREA NITROGEN 68 mg/dl (7-20); CALCIUM 8.9 mg/dl (8.4-10.2); CARBON DIOXIDE 27 mmol/L (21-31); CHLORIDE 90 mmol/L (97-110); GLUCOSE 263 mg/dl (70-220); POTASSIUM 4.1 mmol/L (3.5-5.1); SODIUM 134 mmol/L (135-144)
[2018-03-27 06:28] LABS: CREATININE 11.92 mg/dl (0.44-1.00)
[2018-03-27] MEDS: LEVOTHYROXINE 150 MCG TAB PO (06:42)
[2018-03-27] MEDS: PANTOPRAZOLE 40 MG INJ IV ×2 (06:42→17:21)
[2018-03-27] MEDS: DIAZEPAM 5 MG TAB PO ×3 (06:42→22:12)
[2018-03-27] MEDS: SOD CHLORIDE 0.9% 250 ML IV (08:54)
[2018-03-27] MEDS: DOCUSATE SODIUM 100 MG CAP PO ×2 (09:00→21:28)
[2018-03-27] MEDS: INSULIN ASPART [NOVOLOG] 3 ML PEN SC ×7 (09:32→21:39)
[2018-03-27] MEDS: BUSPIRONE 5 MG TAB PO ×2 (09:33→21:28)
[2018-03-27] MEDS: SEVELAMER CARBONATE 800 MG TABLET PO ×3 (09:33→17:18)
[2018-03-27] MEDS: HYDROCORTISONE 5 MG TAB PO ×3 (09:33→21:31)
[2018-03-27] MEDS: CALCIUM ACETATE 667 MG CAP PO ×3 (09:33→17:17)
[2018-03-27] MEDS: LANTHANUM 500 MG CHEW PO ×3 (09:34→17:17)
[2018-03-27] MEDS: LUBIPROSTONE 24 MCG CAP PO ×2 (09:34→21:28)
[2018-03-27] MEDS: CINACALCET 30 MG TAB PO (09:34)
[2018-03-27] MEDS: ONDANSETRON 4 MG INJ IV (09:39)
[2018-03-27] MEDS: SOD CHLORIDE 0.9% 500 ML IV (12:00)
[2018-03-27 12:50] LABS: ADD MAN DIFF? NO
[2018-03-27 12:55] LABS: ABNORMAL IP MESSAGE 1; BASOPHIL # 0.1 10^3/ul (0.0-0.1); BASOPHILS % 0.5 % (0.0-2.0); EOSINOPHILS # 0.1 10^3/ul (0.0-0.5); EOSINOPHILS % 1.3 % (0.0-7.0); HEMATOCRIT 34.5 % (37.0-47.0); HEMOGLOBIN 10.8 g/dl (12.0-16.0); LYMPHOCYTES # 0.5 10^3/ul (0.8-2.9); LYMPHOCYTES % 5.4 % (15.0-51.0); MEAN CORPUSCULAR HEMOGLOBIN 33.9 pg (29.0-33.0); MEAN CORPUSCULAR HGB CONC 31.3 g/dl (32.0-37.0); MEAN CORPUSCULAR VOLUME 108.2 fl (82.0-101.0); MEAN PLATELET VOLUME 10.3 fl (7.4-10.4); MONOCYTE # 0.5 10^3/ul (0.3-0.9); MONOCYTES % 5.1 % (0.0-11.0); NEUTROPHIL # 8.7 10^3/ul (1.6-7.5); NEUTROPHILS % 87.1 % (39.0-77.0); NUCLEATED RED BLOOD CELLS% 0.3 /100WBC (0.0-0.0); PLATELET COUNT 197 10^3/UL (140-415); RED BLOOD COUNT 3.19 10^6/ul (4.20-5.40); RED CELL DISTRIBUTION WIDTH 16.2 % (11.5-14.5)
[2018-03-27] MEDS ORDERED: VANCOMYCIN IV PER PHARMACY XX (13:00)
[2018-03-27 13:01] LABS: POSITIVE DIFF @See below
[2018-03-27 13:15] LABS: LACTIC ACID 3.2 mmol/L (0.5-2.0)
[2018-03-27 13:19] LABS: ANION GAP 19 (8-16); BLOOD UREA NITROGEN 70 mg/dl (7-20); CALCIUM 8.7 mg/dl (8.4-10.2); CARBON DIOXIDE 27 mmol/L (21-31); CHLORIDE 93 mmol/L (97-110); GLUCOSE 168 mg/dl (70-220); POTASSIUM 4.6 mmol/L (3.5-5.1); SODIUM 134 mmol/L (135-144)
[2018-03-27 13:28] LABS: CREATININE 11.71 mg/dl (0.44-1.00)
[2018-03-27] MEDS ORDERED: DIPHENHYDRAMINE 50 MG INJ IM (13:30)
[2018-03-27 13:31] LABS: TROPONIN-I < 0.012 ng/ml (0.000-0.120)
[2018-03-27] MEDS: SOD CHLORIDE 0.9% 1,000 ML IV (13:35)
[2018-03-27] MEDS: HYDROCORTISONE 100 MG INJ IV (13:41)
[2018-03-27] MEDS: PIPER-TAZO 2.25 GM (PMX) 50 ML IVPB (13:49)
[2018-03-27] MEDS: NORepinephrine 8MG/250 ML (PMX 250 ML IV (14:22)
[2018-03-27] MEDS ORDERED: VANCOMYCIN 2 GM in SOD CHLORIDE 0.9% 500 ML IVPB (15:00)
[2018-03-27] MEDS: VANCOMYCIN 1 GM 250 ML IVPB (16:05)
[2018-03-27] MEDS: INSULIN DETEMIR [LEVEMIR] (100 UNITS/ML) SYG SC (20:06)
[2018-03-27] MEDS: NPH, HUMAN INSULIN ISOPHANE 3ML VIAL SC (20:08)
[2018-03-27] MEDS: SERTRALINE 50 MG TAB PO (21:29)
[2018-03-28] MEDS: PIPER-TAZO 2.25 GM (PMX) 50 ML IVPB ×4 (00:23→21:33)
[2018-03-28] MEDS: METOCLOPRAMIDE 10 MG INJ IV ×4 (00:24→17:37)
[2018-03-28] MEDS: ACCUCHECK AT 2AM (Patients on SS coverage) XX (02:18)
[2018-03-28] MEDS: PANTOPRAZOLE 40 MG INJ IV ×2 (06:02→17:37)
[2018-03-28] MEDS: DIAZEPAM 5 MG TAB PO ×3 (06:02→21:36)
[2018-03-28 06:10] LABS: ADD MAN DIFF? NO
[2018-03-28] MEDS: DIPHENHYDRAMINE 50 MG INJ IV ×3 (06:10→19:39)
[2018-03-28 06:18] LABS: WHITE BLOOD COUNT 5.1 10^3/ul (4.8-10.8)
[2018-03-28 06:18] LABS: BASOPHILS % 0.8 % (0.0-2.0); EOSINOPHILS # 0.1 10^3/ul (0.0-0.5); EOSINOPHILS % 2.5 % (0.0-7.0); HEMATOCRIT 32.6 % (37.0-47.0); HEMOGLOBIN 10.2 g/dl (12.0-16.0); LYMPHOCYTES # 0.7 10^3/ul (0.8-2.9); MEAN CORPUSCULAR HEMOGLOBIN 33.4 pg (29.0-33.0); MEAN CORPUSCULAR HGB CONC 31.3 g/dl (32.0-37.0); MEAN CORPUSCULAR VOLUME 106.9 fl (82.0-101.0); MEAN PLATELET VOLUME 10.7 fl (7.4-10.4); MONOCYTE # 0.5 10^3/ul (0.3-0.9); MONOCYTES % 9.9 % (0.0-11.0); NEUTROPHIL # 3.7 10^3/ul (1.6-7.5); NEUTROPHILS % 72.2 % (39.0-77.0); NUCLEATED RED BLOOD CELLS% 0.4 /100WBC (0.0-0.0); PLATELET COUNT 189 10^3/UL (140-415); RED BLOOD COUNT 3.05 10^6/ul (4.20-5.40)
[2018-03-28 06:38] LABS: POSITIVE DIFF @See below
[2018-03-28 06:44] LABS: ANION GAP 19 (8-16); BLOOD UREA NITROGEN 68 mg/dl (7-20); CALCIUM 8.2 mg/dl (8.4-10.2); CARBON DIOXIDE 26 mmol/L (21-31); CHLORIDE 93 mmol/L (97-110); GLUCOSE 305 mg/dl (70-220); MAGNESIUM 2.5 mg/dl (1.7-2.5); POTASSIUM 4.3 mmol/L (3.5-5.1); SODIUM 134 mmol/L (135-144)
[2018-03-28] MEDS: LEVOTHYROXINE 150 MCG TAB PO (06:52)
[2018-03-28 06:53] LABS: CREATININE 10.61 mg/dl (0.44-1.00)
[2018-03-28] MEDS: CALCIUM ACETATE 667 MG CAP PO ×3 (08:59→17:36)
[2018-03-28] MEDS: HYDROCORTISONE 5 MG TAB PO ×3 (08:59→21:19)
[2018-03-28] MEDS: LUBIPROSTONE 24 MCG CAP PO ×2 (08:59→21:20)
[2018-03-28] MEDS: BUSPIRONE 5 MG TAB PO ×2 (09:00→21:19)
[2018-03-28] MEDS: DOCUSATE SODIUM 100 MG CAP PO ×2 (09:00→21:19)
[2018-03-28] MEDS: LANTHANUM 500 MG CHEW PO ×3 (09:00→17:36)
[2018-03-28] MEDS: CINACALCET 30 MG TAB PO (09:00)
[2018-03-28] MEDS: SEVELAMER CARBONATE 800 MG TABLET PO ×3 (09:00→17:36)
[2018-03-28] MEDS: INSULIN ASPART [NOVOLOG] 3 ML PEN SC ×7 (09:02→21:00)
[2018-03-28] MEDS: POLYETHYLENE GLYCOL 17 GM PACKET PO (14:19)
[2018-03-28] MEDS: EPOETIN 10000 UNITS/1 ML INJ (ESRD) SC (17:35)
[2018-03-28] MEDS: NPH, HUMAN INSULIN ISOPHANE 3ML VIAL SC (19:50)
[2018-03-28] MEDS: INSULIN DETEMIR [LEVEMIR] (100 UNITS/ML) SYG SC (19:51)
[2018-03-28] MEDS ORDERED: LUBIPROSTONE 24 MCG CAP PO (21:00)
[2018-03-28] MEDS: SERTRALINE 50 MG TAB PO (21:21)
[2018-03-29] MEDS: METOCLOPRAMIDE 10 MG INJ IV ×4 (00:39→17:07)
[2018-03-29] MEDS: DIPHENHYDRAMINE 50 MG INJ IV ×4 (01:43→20:45)
[2018-03-29] MEDS: ACCUCHECK AT 2AM (Patients on SS coverage) XX (01:53)
[2018-03-29] MEDS: PANTOPRAZOLE 40 MG INJ IV ×2 (05:34→17:07)
[2018-03-29] MEDS: DIAZEPAM 5 MG TAB PO ×3 (05:34→21:31)
[2018-03-29] MEDS: PIPER-TAZO 2.25 GM (PMX) 50 ML IVPB ×3 (05:34→21:30)
[2018-03-29 05:41] LABS: ADD MAN DIFF? NO
[2018-03-29 05:45] LABS: WHITE BLOOD COUNT 7.2 10^3/ul (4.8-10.8)
[2018-03-29 05:45] LABS: BASOPHIL # 0.1 10^3/ul (0.0-0.1); BASOPHILS % 0.7 % (0.0-2.0); EOSINOPHILS # 0.2 10^3/ul (0.0-0.5); EOSINOPHILS % 2.4 % (0.0-7.0); HEMATOCRIT 32.3 % (37.0-47.0); LYMPHOCYTES # 0.7 10^3/ul (0.8-2.9); LYMPHOCYTES % 10.2 % (15.0-51.0); MEAN CORPUSCULAR HEMOGLOBIN 33.2 pg (29.0-33.0); MEAN CORPUSCULAR VOLUME 107.3 fl (82.0-101.0); MEAN PLATELET VOLUME 10.4 fl (7.4-10.4); MONOCYTE # 0.5 10^3/ul (0.3-0.9); MONOCYTES % 6.4 % (0.0-11.0); NEUTROPHIL # 5.7 10^3/ul (1.6-7.5); NEUTROPHILS % 79.9 % (39.0-77.0); PLATELET COUNT 218 10^3/UL (140-415); RED BLOOD COUNT 3.01 10^6/ul (4.20-5.40); RED CELL DISTRIBUTION WIDTH 16.1 % (11.5-14.5)
[2018-03-29 06:06] LABS: ANION GAP 18 (8-16); BLOOD UREA NITROGEN 67 mg/dl (7-20); CALCIUM 8.6 mg/dl (8.4-10.2); CARBON DIOXIDE 29 mmol/L (21-31); CHLORIDE 94 mmol/L (97-110); CREATININE 11.41 mg/dl (0.44-1.00); GLUCOSE 172 mg/dl (70-220); POTASSIUM 3.6 mmol/L (3.5-5.1); SODIUM 137 mmol/L (135-144)
[2018-03-29 06:11] LABS: VANCOMYCIN,RANDOM 12.9 ug/ml
[2018-03-29] MEDS: LEVOTHYROXINE 150 MCG TAB PO (06:27)
[2018-03-29] MEDS: CALCIUM ACETATE 667 MG CAP PO ×4 (07:51→17:35)
[2018-03-29] MEDS: SEVELAMER CARBONATE 800 MG TABLET PO ×4 (07:51→17:35)
[2018-03-29] MEDS: LANTHANUM 500 MG CHEW PO ×4 (07:52→17:35)
[2018-03-29] MEDS: INSULIN ASPART [NOVOLOG] 3 ML PEN SC ×7 (08:01→21:30)
[2018-03-29] MEDS: DOCUSATE SODIUM 100 MG CAP PO ×2 (08:12→20:44)
[2018-03-29] MEDS: POLYETHYLENE GLYCOL 17 GM PACKET PO (08:12)
[2018-03-29] MEDS: CINACALCET 30 MG TAB PO (08:13)
[2018-03-29] MEDS: BUSPIRONE 5 MG TAB PO ×2 (08:13→20:44)
[2018-03-29] MEDS: HYDROCORTISONE 5 MG TAB PO ×3 (08:13→20:45)
[2018-03-29] MEDS: LUBIPROSTONE 24 MCG CAP PO ×2 (08:14→20:44)
[2018-03-29] MEDS: MIDODRINE 5 MG TAB GTB ×3 (09:22→16:43)
[2018-03-29] MEDS: VANCOMYCIN 750 MG in SOD CHLORIDE 0.9% 150 ML IVPB (16:43)
[2018-03-29] MEDS: HYDROmorphONE 2 MG TAB PO (17:54)
[2018-03-29] MEDS: INSULIN DETEMIR [LEVEMIR] (100 UNITS/ML) SYG SC (20:11)
[2018-03-29] MEDS: NPH, HUMAN INSULIN ISOPHANE 3ML VIAL SC (20:14)
[2018-03-29] MEDS: SERTRALINE 50 MG TAB PO (20:44)
[2018-03-30] MEDS: METOCLOPRAMIDE 10 MG INJ IV ×4 (00:35→17:54)
[2018-03-30] MEDS: ACCUCHECK AT 2AM (Patients on SS coverage) XX (01:57)
[2018-03-30] MEDS: DIPHENHYDRAMINE 50 MG INJ IV ×3 (03:12→16:04)
[2018-03-30] MEDS: DIAZEPAM 5 MG TAB PO ×3 (06:11→21:22)
[2018-03-30] MEDS: PANTOPRAZOLE 40 MG INJ IV ×2 (06:11→17:54)
[2018-03-30] MEDS: PIPER-TAZO 2.25 GM (PMX) 50 ML IVPB ×3 (06:11→21:19)
[2018-03-30] MEDS: LEVOTHYROXINE 150 MCG TAB PO (07:25)
[2018-03-30] MEDS: HYDROmorphONE 2 MG TAB PO ×2 (08:34→16:05)
[2018-03-30] MEDS: MIDODRINE 5 MG TAB GTB ×3 (08:35→17:55)
[2018-03-30] MEDS: CINACALCET 30 MG TAB PO (08:35)
[2018-03-30] MEDS: SEVELAMER CARBONATE 800 MG TABLET PO ×3 (08:35→17:55)
[2018-03-30] MEDS: LANTHANUM 500 MG CHEW PO ×3 (08:35→17:54)
[2018-03-30] MEDS: LUBIPROSTONE 24 MCG CAP PO ×2 (08:36→21:18)
[2018-03-30] MEDS: BUSPIRONE 5 MG TAB PO ×2 (08:36→21:18)
[2018-03-30] MEDS: DOCUSATE SODIUM 100 MG CAP PO ×2 (08:36→21:18)
[2018-03-30] MEDS: POLYETHYLENE GLYCOL 17 GM PACKET PO (08:36)
[2018-03-30] MEDS: CALCIUM ACETATE 667 MG CAP PO ×3 (08:36→17:55)
[2018-03-30] MEDS: HYDROCORTISONE 5 MG TAB PO ×3 (08:36→21:19)
[2018-03-30] MEDS: INSULIN ASPART [NOVOLOG] 3 ML PEN SC ×7 (08:43→21:00)
[2018-03-30] MEDS: ONDANSETRON 4 MG INJ IV (08:51)
[2018-03-30] MEDS: BUPROPION (XL) 150 MG TAB PO (12:25)
[2018-03-30] MEDS: INSULIN DETEMIR [LEVEMIR] (100 UNITS/ML) SYG SC (21:00)
[2018-03-30] MEDS: NPH, HUMAN INSULIN ISOPHANE 3ML VIAL SC (21:08)
[2018-03-30] MEDS: SERTRALINE 50 MG TAB PO (21:19)
[2018-03-31] MEDS: ACCUCHECK AT 2AM (Patients on SS coverage) XX (01:05)
[2018-03-31] MEDS: HYDROmorphONE 2 MG TAB PO (02:12)
[2018-03-31] MEDS: PANTOPRAZOLE 40 MG INJ IV ×2 (05:12→17:38)
[2018-03-31] MEDS: PIPER-TAZO 2.25 GM (PMX) 50 ML IVPB ×3 (05:12→22:00)
[2018-03-31] MEDS: DIAZEPAM 5 MG TAB PO ×2 (05:12→21:56)
[2018-03-31] MEDS: METOCLOPRAMIDE 10 MG INJ IV ×5 (05:13→23:57)
[2018-03-31 05:47] LABS: WHITE BLOOD COUNT 5.7 10^3/ul (4.8-10.8)
[2018-03-31 05:47] LABS: ADD MAN DIFF? NO; BASOPHIL # 0.1 10^3/ul (0.0-0.1); BASOPHILS % 1.1 % (0.0-2.0); EOSINOPHILS # 0.1 10^3/ul (0.0-0.5); EOSINOPHILS % 1.8 % (0.0-7.0); HEMATOCRIT 33.3 % (37.0-47.0); HEMOGLOBIN 10.4 g/dl (12.0-16.0); LYMPHOCYTES # 0.9 10^3/ul (0.8-2.9); LYMPHOCYTES % 15.8 % (15.0-51.0); MEAN CORPUSCULAR HEMOGLOBIN 33.1 pg (29.0-33.0); MEAN CORPUSCULAR HGB CONC 31.2 g/dl (32.0-37.0); MEAN CORPUSCULAR VOLUME 106.1 fl (82.0-101.0); MEAN PLATELET VOLUME 10.5 fl (7.4-10.4); MONOCYTE # 0.5 10^3/ul (0.3-0.9); MONOCYTES % 9.5 % (0.0-11.0); NEUTROPHIL # 4.1 10^3/ul (1.6-7.5); NEUTROPHILS % 71.3 % (39.0-77.0); PLATELET COUNT 257 10^3/UL (140-415); RED BLOOD COUNT 3.14 10^6/ul (4.20-5.40)
[2018-03-31 06:24] LABS: ANION GAP 17 (8-16); BLOOD UREA NITROGEN 65 mg/dl (7-20); CALCIUM 8.6 mg/dl (8.4-10.2); CARBON DIOXIDE 29 mmol/L (21-31); CHLORIDE 94 mmol/L (97-110); CREATININE 10.55 mg/dl (0.44-1.00); GLUCOSE 216 mg/dl (70-220); POTASSIUM 3.5 mmol/L (3.5-5.1); SODIUM 136 mmol/L (135-144)
[2018-03-31] MEDS: LEVOTHYROXINE 150 MCG TAB PO (06:29)
[2018-03-31] MEDS: INSULIN ASPART [NOVOLOG] 3 ML PEN SC ×7 (07:38→20:09)
[2018-03-31] MEDS: LANTHANUM 500 MG CHEW PO ×4 (07:47→17:35)
[2018-03-31] MEDS: CALCIUM ACETATE 667 MG CAP PO ×4 (07:47→17:35)
[2018-03-31] MEDS: SEVELAMER CARBONATE 800 MG TABLET PO ×4 (07:48→17:35)
[2018-03-31] MEDS: BUSPIRONE 5 MG TAB PO ×2 (08:52→21:57)
[2018-03-31] MEDS: CINACALCET 30 MG TAB PO (08:52)
[2018-03-31] MEDS: DOCUSATE SODIUM 100 MG CAP PO ×2 (08:52→21:56)
[2018-03-31] MEDS: MIDODRINE 5 MG TAB GTB ×3 (08:52→17:32)
[2018-03-31] MEDS: POLYETHYLENE GLYCOL 17 GM PACKET PO (08:52)
[2018-03-31] MEDS: LUBIPROSTONE 24 MCG CAP PO ×2 (08:52→22:00)
[2018-03-31] MEDS: HYDROCORTISONE 5 MG TAB PO ×3 (09:33→21:56)
[2018-03-31] MEDS: DIPHENHYDRAMINE 50 MG INJ IV ×3 (09:33→23:57)
[2018-03-31] MEDS: BISACODYL (EC) 5 MG TAB PO (12:20)
[2018-03-31 12:50] LABS: FLD MN% 85.7 %; FLD PMN% 14.3 %; FLD RBC 0 /uL; FLD WBC 7 /cmm
[2018-03-31] MEDS: DEXTROSE 50% 50 ML SYRINGE IV ×2 (13:00→17:29)
[2018-03-31 13:26] LABS: FLD TYPE ABDOMINAL
[2018-03-31 13:26] LABS: FLD CLARITY HAZY; FLD COLOR COLORLESS
[2018-03-31 14:25] LABS: FREE T4 (FREE THYROXINE) 1.32 ng/dl (0.64-1.79)
[2018-03-31] MEDS: HEPARIN 10,000 UNITS/ML 1 ML INJ CATHETER (16:00)
[2018-03-31] MEDS: EPOETIN 10000 UNITS/1 ML INJ (ESRD) SC (18:01)
[2018-03-31] MEDS: INSULIN DETEMIR [LEVEMIR] (100 UNITS/ML) SYG SC (20:19)
[2018-03-31] MEDS: NPH, HUMAN INSULIN ISOPHANE 3ML VIAL SC (20:20)
[2018-03-31] MEDS: SERTRALINE 50 MG TAB PO (21:56)
[2018-04-01] MEDS: ACCUCHECK AT 2AM (Patients on SS coverage) XX (03:14)
[2018-04-01] MEDS: METOCLOPRAMIDE 10 MG INJ IV ×3 (05:05→17:24)
[2018-04-01] MEDS: PIPER-TAZO 2.25 GM (PMX) 50 ML IVPB ×3 (05:05→22:40)
[2018-04-01] MEDS: PANTOPRAZOLE 40 MG INJ IV ×2 (05:05→17:24)
[2018-04-01 05:28] LABS: ADD MAN DIFF? NO
[2018-04-01 05:33] LABS: BASOPHILS % 0.7 % (0.0-2.0); EOSINOPHILS # 0.1 10^3/ul (0.0-0.5); EOSINOPHILS % 2.3 % (0.0-7.0); HEMATOCRIT 35.4 % (37.0-47.0); LYMPHOCYTES # 1.1 10^3/ul (0.8-2.9); LYMPHOCYTES % 17.5 % (15.0-51.0); MEAN CORPUSCULAR HEMOGLOBIN 33.1 pg (29.0-33.0); MEAN CORPUSCULAR HGB CONC 31.1 g/dl (32.0-37.0); MEAN CORPUSCULAR VOLUME 106.6 fl (82.0-101.0); MEAN PLATELET VOLUME 10.4 fl (7.4-10.4); MONOCYTE # 0.6 10^3/ul (0.3-0.9); MONOCYTES % 9.6 % (0.0-11.0); NEUTROPHIL # 4.3 10^3/ul (1.6-7.5); NEUTROPHILS % 69.4 % (39.0-77.0); NUCLEATED RED BLOOD CELLS% 0.3 /100WBC (0.0-0.0); PLATELET COUNT 286 10^3/UL (140-415); RED BLOOD COUNT 3.32 10^6/ul (4.20-5.40)
[2018-04-01 05:33] LABS: WHITE BLOOD COUNT 6.1 10^3/ul (4.8-10.8)
[2018-04-01 05:43] LABS: ANION GAP 20 (8-16); BLOOD UREA NITROGEN 61 mg/dl (7-20); CALCIUM 8.8 mg/dl (8.4-10.2); CARBON DIOXIDE 30 mmol/L (21-31); CHLORIDE 89 mmol/L (97-110); CREATININE 9.94 mg/dl (0.44-1.00); GLUCOSE 127 mg/dl (70-220); MAGNESIUM 2.4 mg/dl (1.7-2.5); PHOSPHORUS 3.6 mg/dl (2.5-4.9); POTASSIUM 3.6 mmol/L (3.5-5.1); SODIUM 135 mmol/L (135-144)
[2018-04-01 06:04] LABS: LACTIC ACID 2.1 mmol/L (0.5-2.0)
[2018-04-01] MEDS: INSULIN ASPART [NOVOLOG] 3 ML PEN SC ×7 (07:05→20:31)
[2018-04-01 07:17] LABS: VANCOMYCIN,RANDOM 16.6 ug/ml
[2018-04-01] MEDS: SEVELAMER CARBONATE 800 MG TABLET PO ×4 (07:35→17:28)
[2018-04-01] MEDS: LANTHANUM 500 MG CHEW PO ×4 (07:35→17:27)
[2018-04-01] MEDS: CALCIUM ACETATE 667 MG CAP PO ×4 (07:35→17:27)
[2018-04-01] MEDS: DIPHENHYDRAMINE 50 MG INJ IV ×3 (08:01→20:35)
[2018-04-01] MEDS: LEVOTHYROXINE 150 MCG TAB PO (08:01)
[2018-04-01] MEDS: CINACALCET 30 MG TAB PO (08:08)
[2018-04-01] MEDS: BUSPIRONE 5 MG TAB PO ×2 (08:08→20:31)
[2018-04-01] MEDS: DIAZEPAM 5 MG TAB PO ×2 (08:09→20:35)
[2018-04-01] MEDS: MIDODRINE 5 MG TAB GTB ×3 (08:10→17:45)
[2018-04-01] MEDS: LUBIPROSTONE 24 MCG CAP PO ×2 (08:10→20:31)
[2018-04-01] MEDS: HYDROCORTISONE 5 MG TAB PO ×4 (08:10→20:31)
[2018-04-01] MEDS: LACTULOSE 30ML CUP PO (08:11)
[2018-04-01] MEDS: DOCUSATE SODIUM 100 MG CAP PO ×2 (08:11→20:31)
[2018-04-01] MEDS: POLYETHYLENE GLYCOL 17 GM PACKET PO (08:12)
[2018-04-01] MEDS ORDERED: MIDODRINE 5 MG TAB GTB (09:00)
[2018-04-01] MEDS: DEXTROSE 50% 50 ML SYRINGE IV ×3 (09:48→15:59)
[2018-04-01] MEDS: ONDANSETRON 4 MG INJ IV (13:47)
[2018-04-01] MEDS: IOHEXOL 14.3 MG(I)/ML (ADULT) BTL PO (17:25)
[2018-04-01] MEDS: HYDROmorphONE 2 MG TAB PO (17:46)
[2018-04-01] MEDS: SERTRALINE 50 MG TAB PO (20:31)
[2018-04-01] MEDS: NPH, HUMAN INSULIN ISOPHANE 3ML VIAL SC (20:41)
[2018-04-01] MEDS: INSULIN DETEMIR [LEVEMIR] (100 UNITS/ML) SYG SC (20:46)
[2018-04-01] MEDS: VANCOMYCIN 750 MG in SOD CHLORIDE 0.9% 150 ML IVPB (22:40)
[2018-04-02] MEDS: METOCLOPRAMIDE 10 MG INJ IV ×4 (00:38→17:55)
[2018-04-02] MEDS: ACCUCHECK AT 2AM (Patients on SS coverage) XX (02:00)
[2018-04-02] MEDS: DIPHENHYDRAMINE 50 MG INJ IV ×4 (02:10→22:38)
[2018-04-02] MEDS: PIPER-TAZO 2.25 GM (PMX) 50 ML IVPB ×2 (05:18→13:32)
[2018-04-02] MEDS: HYDROmorphONE 2 MG TAB PO ×2 (05:18→10:30)
[2018-04-02] MEDS: PANTOPRAZOLE 40 MG INJ IV ×2 (05:18→17:55)
[2018-04-02 05:28] LABS: WHITE BLOOD COUNT 4.3 10^3/ul (4.8-10.8)
[2018-04-02 05:28] LABS: HEMATOCRIT 36.2 % (37.0-47.0); HEMOGLOBIN 11.4 g/dl (12.0-16.0); MEAN CORPUSCULAR HEMOGLOBIN 33.3 pg (29.0-33.0); MEAN CORPUSCULAR HGB CONC 31.5 g/dl (32.0-37.0); MEAN CORPUSCULAR VOLUME 105.8 fl (82.0-101.0); MEAN PLATELET VOLUME 9.9 fl (7.4-10.4); NUCLEATED RED BLOOD CELLS% 0.5 /100WBC (0.0-0.0); PLATELET COUNT 305 10^3/UL (140-415); RED BLOOD COUNT 3.42 10^6/ul (4.20-5.40)
[2018-04-02 05:34] LABS: ADD MAN DIFF? YES; POSITIVE DIFF @See below
[2018-04-02 06:06] LABS: ANION GAP 20 (8-16); BLOOD UREA NITROGEN 57 mg/dl (7-20); CALCIUM 8.5 mg/dl (8.4-10.2); CARBON DIOXIDE 30 mmol/L (21-31); CHLORIDE 88 mmol/L (97-110); CREATININE 9.77 mg/dl (0.44-1.00); GLUCOSE 122 mg/dl (70-220); MAGNESIUM 2.1 mg/dl (1.7-2.5); PHOSPHORUS 4.1 mg/dl (2.5-4.9); POTASSIUM 3.5 mmol/L (3.5-5.1); SODIUM 134 mmol/L (135-144)
[2018-04-02] MEDS: INSULIN ASPART [NOVOLOG] 3 ML PEN SC ×7 (07:05→21:30)
[2018-04-02] MEDS: LACTULOSE 30ML CUP PO ×2 (07:57→21:21)
[2018-04-02] MEDS: LEVOTHYROXINE 150 MCG TAB PO (07:58)
[2018-04-02] MEDS: SEVELAMER CARBONATE 800 MG TABLET PO ×3 (07:58→17:35)
[2018-04-02] MEDS: LANTHANUM 500 MG CHEW PO ×3 (07:58→17:35)
[2018-04-02] MEDS: CALCIUM ACETATE 667 MG CAP PO ×3 (07:59→17:35)
[2018-04-02] MEDS: CINACALCET 30 MG TAB PO (08:00)
[2018-04-02] MEDS: DOCUSATE SODIUM 100 MG CAP PO ×2 (08:00→21:21)
[2018-04-02] MEDS: POLYETHYLENE GLYCOL 17 GM PACKET PO (08:00)
[2018-04-02] MEDS: LUBIPROSTONE 24 MCG CAP PO ×2 (08:00→21:30)
[2018-04-02] MEDS: DIAZEPAM 5 MG TAB PO ×2 (08:01→21:27)
[2018-04-02] MEDS: HYDROCORTISONE 5 MG TAB PO ×3 (08:01→21:20)
[2018-04-02] MEDS: MIDODRINE 5 MG TAB GTB ×3 (08:02→17:00)
[2018-04-02 08:06] LABS: ANISOCYTOSIS 2+ (0-0); BAND NEUTROPHILS #M 1.6 10^3/ul (0.0-0.6); BAND NEUTROPHILS % (M) 38 % (0-4); BASOPHILS % (M) 1 % (0-2); EOSINOPHILS % (M) 3 % (0-7); LYMPHOCYTES % (M) 24 % (15-51); MONOCYTE #M 0.4 10^3/ul (0.3-0.9); MONOCYTES % (M) 11 % (0-11); MYELOCYTES % (M) 1 % (0-0); PLATELET ESTIMATE NORMAL; POLYCHROMASIA 3+ (0-0); PROMYELOCYTES % (M) 1 % (0-0); SEGMENTED NEUTROPHILS (M) % 21 % (39-77); SMUDGE%M 2 % (0-0); SPHEROCYTES 1+ (0-0)
[2018-04-02] MEDS: BUSPIRONE 5 MG TAB PO ×2 (08:09→21:20)
[2018-04-02] MEDS: ONDANSETRON 4 MG INJ IV ×3 (08:21→21:11)
[2018-04-02] MEDS: DEXTROSE 50% 50 ML SYRINGE IV (12:01)
[2018-04-02] MEDS: LACTULOSE ENEMA 1,000 ML BTL PR (12:56)
[2018-04-02] MEDS: HYDROCORTISONE 100 MG INJ IV ×2 (13:31→21:20)
[2018-04-02] MEDS: DEXTROSE 5%-0.9% NACL 1,000 ML IV (13:32)
[2018-04-02] MEDS: BISACODYL (EC) 5 MG TAB PO ×2 (13:33→21:21)
[2018-04-02] MEDS: SOD CHLORIDE 0.9% 500 ML IV (15:00)
[2018-04-02] MEDS: METHYLNALTREXONE 12 MG/0.6 ML VIAL SC (16:45)
[2018-04-02] MEDS: INSULIN DETEMIR [LEVEMIR] (100 UNITS/ML) SYG SC (20:23)
[2018-04-02] MEDS: NPH, HUMAN INSULIN ISOPHANE 3ML VIAL SC (20:25)
[2018-04-02] MEDS: SERTRALINE 50 MG TAB PO (21:21)
[2018-04-03] MEDS: METOCLOPRAMIDE 10 MG INJ IV ×4 (01:36→17:36)
[2018-04-03] MEDS: ACCUCHECK AT 2AM (Patients on SS coverage) XX (01:36)
[2018-04-03] MEDS: DIPHENHYDRAMINE 50 MG INJ IV ×3 (04:48→18:46)
[2018-04-03] MEDS: PANTOPRAZOLE 40 MG INJ IV ×2 (05:09→17:36)
[2018-04-03] MEDS: HYDROCORTISONE 100 MG INJ IV (05:09)
[2018-04-03 05:35] LABS: WHITE BLOOD COUNT 6.3 10^3/ul (4.8-10.8)
[2018-04-03 05:35] LABS: HEMATOCRIT 35.7 % (37.0-47.0); HEMOGLOBIN 10.9 g/dl (12.0-16.0); MEAN CORPUSCULAR HEMOGLOBIN 33.3 pg (29.0-33.0); MEAN CORPUSCULAR HGB CONC 30.5 g/dl (32.0-37.0); MEAN CORPUSCULAR VOLUME 109.2 fl (82.0-101.0); MEAN PLATELET VOLUME 10.4 fl (7.4-10.4); PLATELET COUNT 324 10^3/UL (140-415); RED BLOOD COUNT 3.27 10^6/ul (4.20-5.40); RED CELL DISTRIBUTION WIDTH 17.1 % (11.5-14.5)
[2018-04-03 05:54] LABS: ADD MAN DIFF? YES; POSITIVE DIFF @See below
[2018-04-03 06:22] LABS: ANION GAP 24 (8-16); BLOOD UREA NITROGEN 53 mg/dl (7-20); CALCIUM 7.6 mg/dl (8.4-10.2); CARBON DIOXIDE 20 mmol/L (21-31); CHLORIDE 92 mmol/L (97-110); GLUCOSE 254 mg/dl (70-220); POTASSIUM 3.7 mmol/L (3.5-5.1); SODIUM 132 mmol/L (135-144)
[2018-04-03 06:46] LABS: CREATININE 8.07 mg/dl (0.44-1.00)
[2018-04-03] MEDS: INSULIN ASPART [NOVOLOG] 3 ML PEN SC ×7 (07:48→21:00)
[2018-04-03] MEDS: CALCIUM ACETATE 667 MG CAP PO ×3 (07:57→17:35)
[2018-04-03] MEDS: LEVOTHYROXINE 150 MCG TAB PO (07:57)
[2018-04-03] MEDS: LANTHANUM 500 MG CHEW PO ×3 (07:57→17:43)
[2018-04-03] MEDS: SEVELAMER CARBONATE 800 MG TABLET PO ×3 (07:58→17:36)
[2018-04-03 08:04] LABS: SEGMENTED NEUTROPHILS (M) % 56 % (39-77)
[2018-04-03 08:05] LABS: ANISOCYTOSIS 1+ (0-0); BAND NEUTROPHILS % (M) 33 % (0-4); ERYTHROBLAST% (NRBC) (M) 1 % (0-0); LYMPHOCYTES #M 0.3 10^3/ul (0.8-2.9); LYMPHOCYTES % (M) 6 % (15-51); MONOCYTE #M 0.3 10^3/ul (0.3-0.9); MONOCYTES % (M) 5 % (0-11); PLATELET ESTIMATE NORMAL; POLYCHROMASIA 1+ (0-0); SEG NEUT #M 3.7 10^3/ul (1.6-7.5); SMUDGE%M 4 % (0-0)
[2018-04-03] MEDS: DOCUSATE SODIUM 100 MG CAP PO ×2 (08:25→21:00)
[2018-04-03] MEDS: CINACALCET 30 MG TAB PO (08:26)
[2018-04-03] MEDS: HYDROCORTISONE 5 MG TAB PO ×3 (08:26→21:22)
[2018-04-03] MEDS: BUSPIRONE 5 MG TAB PO ×2 (08:26→21:23)
[2018-04-03] MEDS: LUBIPROSTONE 24 MCG CAP PO ×2 (08:26→21:23)
[2018-04-03] MEDS: ALBUMIN HUMAN 25% 100 ML IV ×3 (08:27→19:26)
[2018-04-03] MEDS: DIAZEPAM 5 MG TAB PO ×2 (08:34→21:22)
[2018-04-03] MEDS: POLYETHYLENE GLYCOL 17 GM PACKET PO (08:34)
[2018-04-03] MEDS: MIDODRINE 5 MG TAB GTB ×3 (08:34→17:36)
[2018-04-03] MEDS: HYDROCODONE/APAP (10/325) TAB PO (10:21)
[2018-04-03] MEDS: PHENTOLAMINE 5 MG INJ SC (12:10)
[2018-04-03] MEDS: DEXTROSE 5%-0.9% NACL 1,000 ML IV ×2 (12:12→22:15)
[2018-04-03] MEDS: INSULIN DETEMIR [LEVEMIR] (100 UNITS/ML) SYG SC (20:12)
[2018-04-03] MEDS: NPH, HUMAN INSULIN ISOPHANE 3ML VIAL SC (20:14)
[2018-04-03] MEDS: SERTRALINE 50 MG TAB PO (21:22)
[2018-04-04] MEDS: HYDROCODONE/APAP (10/325) TAB PO ×2 (00:14→13:15)
[2018-04-04] MEDS: METOCLOPRAMIDE 10 MG INJ IV ×4 (00:14→17:04)
[2018-04-04] MEDS: DEXTROSE 5%-0.9% NACL 1,000 ML IV (00:32)
[2018-04-04] MEDS: ACCUCHECK AT 2AM (Patients on SS coverage) XX (02:00)
[2018-04-04] MEDS: DIPHENHYDRAMINE 50 MG INJ IV ×3 (02:07→18:01)
[2018-04-04] MEDS: ALBUMIN HUMAN 25% 100 ML IV (02:17)
[2018-04-04] MEDS: LEVOTHYROXINE 150 MCG TAB PO (05:53)
[2018-04-04] MEDS: PANTOPRAZOLE 40 MG INJ IV ×2 (05:53→17:04)
[2018-04-04 06:05] LABS: ADD MAN DIFF? NO
[2018-04-04 06:08] LABS: BASOPHILS % 0.3 % (0.0-2.0); EOSINOPHILS # 0.1 10^3/ul (0.0-0.5); EOSINOPHILS % 1.3 % (0.0-7.0); HEMATOCRIT 29.1 % (37.0-47.0); HEMOGLOBIN 9.2 g/dl (12.0-16.0); LYMPHOCYTES # 0.9 10^3/ul (0.8-2.9); LYMPHOCYTES % 10.2 % (15.0-51.0); MEAN CORPUSCULAR HEMOGLOBIN 33.1 pg (29.0-33.0); MEAN CORPUSCULAR HGB CONC 31.6 g/dl (32.0-37.0); MEAN CORPUSCULAR VOLUME 104.7 fl (82.0-101.0); MONOCYTE # 0.6 10^3/ul (0.3-0.9); MONOCYTES % 6.1 % (0.0-11.0); NEUTROPHIL # 7.5 10^3/ul (1.6-7.5); NEUTROPHILS % 81.3 % (39.0-77.0); PLATELET COUNT 292 10^3/UL (140-415); RED BLOOD COUNT 2.78 10^6/ul (4.20-5.40)
[2018-04-04 06:08] LABS: WHITE BLOOD COUNT 9.2 10^3/ul (4.8-10.8)
[2018-04-04 06:45] LABS: ANION GAP 20 (8-16); BLOOD UREA NITROGEN 48 mg/dl (7-20); CALCIUM 7.9 mg/dl (8.4-10.2); CARBON DIOXIDE 24 mmol/L (21-31); CHLORIDE 96 mmol/L (97-110); CREATININE 8.35 mg/dl (0.44-1.00); GLUCOSE 90 mg/dl (70-220); PHOSPHORUS 3.3 mg/dl (2.5-4.9); SODIUM 137 mmol/L (135-144)
[2018-04-04 06:48] LABS: POTASSIUM 2.8 mmol/L (3.5-5.1)
[2018-04-04 07:00] LABS: MAGNESIUM 2.1 mg/dl (1.7-2.5)
[2018-04-04] MEDS: INSULIN ASPART [NOVOLOG] 3 ML PEN SC ×7 (07:00→20:41)
[2018-04-04] MEDS: POLYETHYLENE GLYCOL 17 GM PACKET PO (08:42)
[2018-04-04] MEDS: HYDROCORTISONE 5 MG TAB PO ×3 (08:43→22:16)
[2018-04-04] MEDS: SEVELAMER CARBONATE 800 MG TABLET PO ×3 (08:43→17:15)
[2018-04-04] MEDS: DOCUSATE SODIUM 100 MG CAP PO ×2 (08:43→22:15)
[2018-04-04] MEDS: CINACALCET 30 MG TAB PO (08:43)
[2018-04-04] MEDS: POTASSIUM CHLORIDE (SR) 20 MEQ TAB PO (08:44)
[2018-04-04] MEDS: BUSPIRONE 5 MG TAB PO (08:44)
[2018-04-04] MEDS: LANTHANUM 500 MG CHEW PO ×3 (08:44→17:05)
[2018-04-04] MEDS: LUBIPROSTONE 24 MCG CAP PO ×2 (08:44→22:16)
[2018-04-04] MEDS: CALCIUM ACETATE 667 MG CAP PO ×3 (08:45→17:15)
[2018-04-04] MEDS: MIDODRINE 5 MG TAB GTB ×3 (09:02→17:16)
[2018-04-04] MEDS: DIAZEPAM 5 MG TAB PO ×2 (09:02→22:16)
[2018-04-04] MEDS: ONDANSETRON 4 MG INJ IV (09:02)
[2018-04-04] MEDS: DEXTROSE 50% 50 ML SYRINGE IV ×2 (10:00→17:18)
[2018-04-04] MEDS: D5-NS + KCL 20 MEQ 1,000 ML IV (16:46)
[2018-04-04] MEDS: INSULIN DETEMIR [LEVEMIR] (100 UNITS/ML) SYG SC (20:39)
[2018-04-04] MEDS: NPH, HUMAN INSULIN ISOPHANE 3ML VIAL SC (20:39)
[2018-04-04] MEDS: SERTRALINE 50 MG TAB PO (22:17)
[2018-04-05] MEDS: BUSPIRONE 10 MG TAB PO ×3 (00:16→20:14)
[2018-04-05] MEDS: DIPHENHYDRAMINE 50 MG INJ IV ×3 (00:17→17:59)
[2018-04-05] MEDS: METOCLOPRAMIDE 10 MG INJ IV ×4 (00:23→17:15)
[2018-04-05] MEDS: ACCUCHECK AT 2AM (Patients on SS coverage) XX (02:00)
[2018-04-05 06:11] LABS: ADD MAN DIFF? NO
[2018-04-05 06:16] LABS: BASOPHIL # 0.1 10^3/ul (0.0-0.1); BASOPHILS % 0.4 % (0.0-2.0); EOSINOPHILS # 0.1 10^3/ul (0.0-0.5); EOSINOPHILS % 0.8 % (0.0-7.0); HEMATOCRIT 30.3 % (37.0-47.0); HEMOGLOBIN 9.6 g/dl (12.0-16.0); LYMPHOCYTES % 6.8 % (15.0-51.0); MEAN CORPUSCULAR HEMOGLOBIN 33.3 pg (29.0-33.0); MEAN CORPUSCULAR HGB CONC 31.7 g/dl (32.0-37.0); MEAN CORPUSCULAR VOLUME 105.2 fl (82.0-101.0); MEAN PLATELET VOLUME 9.9 fl (7.4-10.4); MONOCYTE # 0.6 10^3/ul (0.3-0.9); MONOCYTES % 4.1 % (0.0-11.0); NEUTROPHIL # 12.8 10^3/ul (1.6-7.5); NEUTROPHILS % 86.9 % (39.0-77.0); PLATELET COUNT 317 10^3/UL (140-415); RED BLOOD COUNT 2.88 10^6/ul (4.20-5.40); RED CELL DISTRIBUTION WIDTH 17.4 % (11.5-14.5)
[2018-04-05 06:16] LABS: WHITE BLOOD COUNT 14.7 10^3/ul (4.8-10.8)
[2018-04-05] MEDS: PANTOPRAZOLE 40 MG INJ IV ×2 (06:16→17:15)
[2018-04-05] MEDS: LEVOTHYROXINE 150 MCG TAB PO (06:16)
[2018-04-05] MEDS: D5-NS + KCL 20 MEQ 1,000 ML IV ×2 (06:17→20:22)
[2018-04-05 06:36] LABS: ALANINE AMINOTRANSFERASE 15 IU/L (13-69); ALBUMIN 2.7 g/dl (3.3-4.9); ALKALINE PHOSPHATASE 175 IU/L (42-121); ASPARTATE AMINO TRANSFERASE 10 IU/L (15-46); TOTAL PROTEIN 4.9 g/dl (6.1-8.1)
[2018-04-05 06:41] LABS: ANION GAP 17 (8-16); BLOOD UREA NITROGEN 41 mg/dl (7-20); CALCIUM 7.6 mg/dl (8.4-10.2); CARBON DIOXIDE 23 mmol/L (21-31); CHLORIDE 98 mmol/L (97-110); GLUCOSE 194 mg/dl (70-220); MAGNESIUM 1.9 mg/dl (1.7-2.5); PHOSPHORUS 2.7 mg/dl (2.5-4.9); POTASSIUM 3.2 mmol/L (3.5-5.1); SODIUM 135 mmol/L (135-144)
[2018-04-05] MEDS: POLYETHYLENE GLYCOL 17 GM PACKET PO (08:05)
[2018-04-05] MEDS: LUBIPROSTONE 24 MCG CAP PO ×2 (08:05→20:14)
[2018-04-05] MEDS: CINACALCET 30 MG TAB PO (08:06)
[2018-04-05] MEDS: SEVELAMER CARBONATE 800 MG TABLET PO ×3 (08:06→17:15)
[2018-04-05] MEDS: CALCIUM ACETATE 667 MG CAP PO ×3 (08:06→17:15)
[2018-04-05] MEDS: DOCUSATE SODIUM 100 MG CAP PO ×2 (08:07→20:14)
[2018-04-05] MEDS: HYDROCORTISONE 5 MG TAB PO ×3 (08:08→20:14)
[2018-04-05] MEDS: POTASSIUM CHLORIDE (SR) 20 MEQ TAB PO (08:08)
[2018-04-05] MEDS: MIDODRINE 5 MG TAB GTB ×3 (08:09→17:36)
[2018-04-05] MEDS: INSULIN ASPART [NOVOLOG] 3 ML PEN SC ×7 (08:15→20:20)
[2018-04-05] MEDS: LANTHANUM 500 MG CHEW PO ×3 (08:19→17:15)
[2018-04-05] MEDS: DIAZEPAM 5 MG TAB PO ×2 (08:19→20:15)
[2018-04-05] MEDS: DEXTROSE 50% 50 ML SYRINGE IV (12:28)
[2018-04-05 18:10] LABS: HEPATITIS B SURFACE ANTIGEN NEGATIVE (NEGATIVE)
[2018-04-05] MEDS: SERTRALINE 50 MG TAB PO (20:14)
[2018-04-05] MEDS: INSULIN DETEMIR [LEVEMIR] (100 UNITS/ML) SYG SC (20:19)
[2018-04-05] MEDS: NPH, HUMAN INSULIN ISOPHANE 3ML VIAL SC (20:21)
[2018-04-06] MEDS: METOCLOPRAMIDE 10 MG INJ IV ×4 (00:20→17:39)
[2018-04-06] MEDS: DIPHENHYDRAMINE 50 MG INJ IV ×3 (00:20→18:11)
[2018-04-06] MEDS: ACCUCHECK AT 2AM (Patients on SS coverage) XX (02:00)
[2018-04-06] MEDS: PANTOPRAZOLE 40 MG INJ IV ×2 (05:57→17:38)
[2018-04-06] MEDS: LEVOTHYROXINE 150 MCG TAB PO (06:03)
[2018-04-06 07:05] LABS: ADD MAN DIFF? NO
[2018-04-06 07:12] LABS: BASOPHIL # 0.1 10^3/ul (0.0-0.1); BASOPHILS % 0.5 % (0.0-2.0); EOSINOPHILS # 0.1 10^3/ul (0.0-0.5); HEMATOCRIT 29.8 % (37.0-47.0); HEMOGLOBIN 9.3 g/dl (12.0-16.0); LYMPHOCYTES # 1.2 10^3/ul (0.8-2.9); MEAN CORPUSCULAR HGB CONC 31.2 g/dl (32.0-37.0); MEAN CORPUSCULAR VOLUME 105.7 fl (82.0-101.0); MEAN PLATELET VOLUME 9.8 fl (7.4-10.4); MONOCYTE # 0.7 10^3/ul (0.3-0.9); NEUTROPHIL # 11.3 10^3/ul (1.6-7.5); NEUTROPHILS % 83.3 % (39.0-77.0); PLATELET COUNT 293 10^3/UL (140-415); RED BLOOD COUNT 2.82 10^6/ul (4.20-5.40); RED CELL DISTRIBUTION WIDTH 17.8 % (11.5-14.5)
[2018-04-06 07:12] LABS: WHITE BLOOD COUNT 13.6 10^3/ul (4.8-10.8)
[2018-04-06] MEDS: INSULIN ASPART [NOVOLOG] 3 ML PEN SC ×7 (07:48→23:00)
[2018-04-06 07:49] LABS: ANION GAP 16 (8-16); BLOOD UREA NITROGEN 39 mg/dl (7-20); CALCIUM 7.7 mg/dl (8.4-10.2); CARBON DIOXIDE 24 mmol/L (21-31); CHLORIDE 99 mmol/L (97-110); CREATININE 7.95 mg/dl (0.44-1.00); GLUCOSE 181 mg/dl (70-220); MAGNESIUM 1.9 mg/dl (1.7-2.5); PHOSPHORUS 2.5 mg/dl (2.5-4.9); POTASSIUM 3.5 mmol/L (3.5-5.1); SODIUM 135 mmol/L (135-144)
[2018-04-06] MEDS: DIAZEPAM 5 MG TAB PO ×2 (08:14→23:13)
[2018-04-06] MEDS: POLYETHYLENE GLYCOL 17 GM PACKET PO (08:15)
[2018-04-06] MEDS: LANTHANUM 500 MG CHEW PO ×3 (08:15→17:40)
[2018-04-06] MEDS: CALCIUM ACETATE 667 MG CAP PO ×3 (08:15→17:40)
[2018-04-06] MEDS: LUBIPROSTONE 24 MCG CAP PO ×2 (08:16→23:20)
[2018-04-06] MEDS: MIDODRINE 5 MG TAB GTB ×3 (08:16→17:40)
[2018-04-06] MEDS: BUSPIRONE 10 MG TAB PO ×2 (08:16→23:13)
[2018-04-06] MEDS: DOCUSATE SODIUM 100 MG CAP PO ×3 (08:17→23:21)
[2018-04-06] MEDS: HYDROCORTISONE 5 MG TAB PO ×3 (08:17→23:13)
[2018-04-06] MEDS: SEVELAMER CARBONATE 800 MG TABLET PO ×3 (08:28→17:36)
[2018-04-06] MEDS: D5-NS + KCL 20 MEQ 1,000 ML IV (12:28)
[2018-04-06 13:00] LABS: FLD MN% 44.4 %; FLD PMN% 55.6 %; FLD RBC 0 /uL; FLD WBC 45 /cmm
[2018-04-06 13:37] LABS: FLD CLARITY CLEAR; FLD COLOR COLORLESS
[2018-04-06 13:37] LABS: FLD TYPE ABDOMINAL
[2018-04-06] MEDS ORDERED: HEPARIN 1000 UNITS/ML 10 ML INJ IV ×4 (18:00→18:30)
[2018-04-06] MEDS ORDERED: HEPARIN 10,000 UNITS/ML 1 ML INJ SC (19:00)
[2018-04-06] MEDS: HEPARIN 10,000 UNITS/ML 1 ML INJ IV (19:38)
[2018-04-06] MEDS: INSULIN DETEMIR [LEVEMIR] (100 UNITS/ML) SYG SC (23:09)
[2018-04-06] MEDS: NPH, HUMAN INSULIN ISOPHANE 3ML VIAL SC (23:09)
[2018-04-06] MEDS: SERTRALINE 50 MG TAB PO (23:13)
[2018-04-07] MEDS: DIPHENHYDRAMINE 50 MG INJ IV ×2 (00:24→23:30)
[2018-04-07] MEDS: METOCLOPRAMIDE 10 MG INJ IV ×5 (00:24→23:30)
[2018-04-07] MEDS: PANTOPRAZOLE 40 MG INJ IV ×2 (06:08→17:42)
[2018-04-07 06:19] LABS: ADD MAN DIFF? NO
[2018-04-07 06:24] LABS: BASOPHIL # 0.1 10^3/ul (0.0-0.1); BASOPHILS % 0.5 % (0.0-2.0); EOSINOPHILS # 0.3 10^3/ul (0.0-0.5); HEMATOCRIT 30.8 % (37.0-47.0); HEMOGLOBIN 9.7 g/dl (12.0-16.0); LYMPHOCYTES # 1.1 10^3/ul (0.8-2.9); LYMPHOCYTES % 8.4 % (15.0-51.0); MEAN CORPUSCULAR HEMOGLOBIN 33.8 pg (29.0-33.0); MEAN CORPUSCULAR HGB CONC 31.5 g/dl (32.0-37.0); MEAN CORPUSCULAR VOLUME 107.3 fl (82.0-101.0); MEAN PLATELET VOLUME 9.7 fl (7.4-10.4); MONOCYTE # 0.8 10^3/ul (0.3-0.9); NEUTROPHIL # 10.5 10^3/ul (1.6-7.5); NEUTROPHILS % 81.3 % (39.0-77.0); NUCLEATED RED BLOOD CELLS% 0.2 /100WBC (0.0-0.0); PLATELET COUNT 294 10^3/UL (140-415); RED BLOOD COUNT 2.87 10^6/ul (4.20-5.40); RED CELL DISTRIBUTION WIDTH 17.6 % (11.5-14.5)
[2018-04-07 06:24] LABS: WHITE BLOOD COUNT 12.9 10^3/ul (4.8-10.8)
[2018-04-07] MEDS: INSULIN ASPART [NOVOLOG] 3 ML PEN SC ×3 (06:39→17:30)
[2018-04-07 07:09] LABS: ANION GAP 15 (8-16); BLOOD UREA NITROGEN 43 mg/dl (7-20); CARBON DIOXIDE 23 mmol/L (21-31); CHLORIDE 101 mmol/L (97-110); GLUCOSE 158 mg/dl (70-220); MAGNESIUM 1.9 mg/dl (1.7-2.5); PHOSPHORUS 2.7 mg/dl (2.5-4.9); POTASSIUM 3.9 mmol/L (3.5-5.1); SODIUM 135 mmol/L (135-144)
[2018-04-07] MEDS: SEVELAMER CARBONATE 800 MG TABLET PO ×3 (09:27→17:42)
[2018-04-07] MEDS: LUBIPROSTONE 24 MCG CAP PO ×2 (09:27→22:21)
[2018-04-07] MEDS: DIAZEPAM 5 MG TAB PO ×2 (09:28→22:20)
[2018-04-07] MEDS: BUSPIRONE 10 MG TAB PO ×2 (09:28→22:22)
[2018-04-07] MEDS: LANTHANUM 500 MG CHEW PO ×3 (09:29→17:42)
[2018-04-07] MEDS: POLYETHYLENE GLYCOL 17 GM PACKET PO (09:29)
[2018-04-07] MEDS: HYDROCORTISONE 5 MG TAB PO ×3 (09:29→22:20)
[2018-04-07] MEDS: DOCUSATE SODIUM 100 MG CAP PO ×2 (09:29→22:20)
[2018-04-07] MEDS: MIDODRINE 5 MG TAB GTB ×3 (09:36→17:00)
[2018-04-07] MEDS: ONDANSETRON 4 MG INJ IV (09:36)
[2018-04-07] MEDS: EPOETIN 10000 UNITS/1 ML INJ (ESRD) SC (17:43)
[2018-04-07] MEDS: ERGOCALCIFEROL (8000 UNITS/ML PO SYG) PO (18:00)
[2018-04-07] MEDS: SERTRALINE 50 MG TAB PO (22:21)
[2018-04-07] MEDS: NPH, HUMAN INSULIN ISOPHANE 3ML VIAL SC (22:40)
[2018-04-07] MEDS: INSULIN DETEMIR [LEVEMIR] (100 UNITS/ML) SYG SC (22:40)
[2018-04-08] MEDS: PANTOPRAZOLE 40 MG INJ IV ×2 (05:29→17:16)
[2018-04-08] MEDS: METOCLOPRAMIDE 10 MG INJ IV ×4 (05:29→23:06)
[2018-04-08 06:35] LABS: ADD MAN DIFF? NO
[2018-04-08] MEDS: DIPHENHYDRAMINE 50 MG INJ IV ×3 (06:37→23:05)
[2018-04-08] MEDS: INSULIN ASPART [NOVOLOG] 3 ML PEN SC ×3 (06:45→17:21)
[2018-04-08 06:47] LABS: WHITE BLOOD COUNT 10.3 10^3/ul (4.8-10.8)
[2018-04-08 06:47] LABS: BASOPHILS % 0.4 % (0.0-2.0); EOSINOPHILS % 0.4 % (0.0-7.0); HEMATOCRIT 32.6 % (37.0-47.0); HEMOGLOBIN 10.2 g/dl (12.0-16.0); LYMPHOCYTES # 0.6 10^3/ul (0.8-2.9); LYMPHOCYTES % 6.2 % (15.0-51.0); MEAN CORPUSCULAR HGB CONC 31.3 g/dl (32.0-37.0); MEAN CORPUSCULAR VOLUME 105.5 fl (82.0-101.0); MEAN PLATELET VOLUME 10.2 fl (7.4-10.4); MONOCYTE # 0.5 10^3/ul (0.3-0.9); MONOCYTES % 4.7 % (0.0-11.0); NEUTROPHIL # 8.8 10^3/ul (1.6-7.5); NEUTROPHILS % 85.5 % (39.0-77.0); PLATELET COUNT 324 10^3/UL (140-415); RED BLOOD COUNT 3.09 10^6/ul (4.20-5.40); RED CELL DISTRIBUTION WIDTH 17.4 % (11.5-14.5)
[2018-04-08 06:56] LABS: POSITIVE DIFF @See below
[2018-04-08 07:10] LABS: ANION GAP 17 (8-16); BLOOD UREA NITROGEN 44 mg/dl (7-20); CALCIUM 8.5 mg/dl (8.4-10.2); CARBON DIOXIDE 25 mmol/L (21-31); CHLORIDE 98 mmol/L (97-110); CREATININE 7.82 mg/dl (0.44-1.00); GLUCOSE 221 mg/dl (70-220); POTASSIUM 3.9 mmol/L (3.5-5.1); SODIUM 136 mmol/L (135-144)
[2018-04-08] MEDS: SEVELAMER CARBONATE 800 MG TABLET PO ×3 (09:10→17:18)
[2018-04-08] MEDS: LUBIPROSTONE 24 MCG CAP PO ×2 (09:10→21:44)
[2018-04-08] MEDS: MIDODRINE 5 MG TAB GTB ×3 (09:11→17:07)
[2018-04-08] MEDS: HYDROCORTISONE 5 MG TAB PO ×3 (09:13→21:44)
[2018-04-08] MEDS: DIAZEPAM 5 MG TAB PO (09:14)
[2018-04-08] MEDS: DOCUSATE SODIUM 100 MG CAP PO ×2 (09:14→21:00)
[2018-04-08] MEDS: ERGOCALCIFEROL 50,000 UNIT CAP PO (09:15)
[2018-04-08] MEDS: POLYETHYLENE GLYCOL 17 GM PACKET PO (09:15)
[2018-04-08] MEDS: LANTHANUM 500 MG CHEW PO ×3 (09:15→17:19)
[2018-04-08] MEDS: BUSPIRONE 10 MG TAB PO ×2 (09:15→21:44)
[2018-04-08] MEDS: INSULIN DETEMIR [LEVEMIR] (100 UNITS/ML) SYG SC (20:00)
[2018-04-08] MEDS: NPH, HUMAN INSULIN ISOPHANE 3ML VIAL SC (20:00)
[2018-04-08] MEDS ORDERED: BUSPIRONE 5 MG TAB PO (21:00)
[2018-04-08] MEDS: SERTRALINE 50 MG TAB PO (21:45)
[2018-04-08] MEDS: ONDANSETRON 4 MG INJ IV (23:05)
[2018-04-09] MEDS: DIPHENHYDRAMINE 50 MG INJ IV ×3 (05:08→23:31)
[2018-04-09] MEDS: METOCLOPRAMIDE 10 MG INJ IV ×3 (05:08→17:12)
[2018-04-09] MEDS: PANTOPRAZOLE 40 MG INJ IV ×2 (06:18→17:11)
[2018-04-09] MEDS: INSULIN ASPART [NOVOLOG] 3 ML PEN SC ×3 (07:53→17:43)
[2018-04-09] MEDS: LANTHANUM 500 MG CHEW PO ×3 (08:22→17:11)
[2018-04-09] MEDS: SEVELAMER CARBONATE 800 MG TABLET PO ×3 (08:22→17:12)
[2018-04-09] MEDS: LUBIPROSTONE 24 MCG CAP PO ×2 (08:23→20:21)
[2018-04-09] MEDS: DOCUSATE SODIUM 100 MG CAP PO ×2 (08:23→20:21)
[2018-04-09] MEDS: BUSPIRONE 10 MG TAB PO ×3 (08:23→20:23)
[2018-04-09] MEDS: HYDROCORTISONE 5 MG TAB PO ×3 (08:23→20:21)
[2018-04-09] MEDS: POLYETHYLENE GLYCOL 17 GM PACKET PO (08:25)
[2018-04-09] MEDS: MIDODRINE 5 MG TAB GTB ×2 (08:26→12:40)
[2018-04-09] MEDS: ONDANSETRON 4 MG INJ IV (08:40)
[2018-04-09] MEDS: LORAZEPAM 0.5 MG TAB PO ×3 (10:15→23:38)
[2018-04-09] MEDS: EPOETIN 10000 UNITS/1 ML INJ (ESRD) SC (17:31)
[2018-04-09] MEDS: SERTRALINE 50 MG TAB PO (20:23)
[2018-04-09] MEDS: NPH, HUMAN INSULIN ISOPHANE 3ML VIAL SC (20:27)
[2018-04-09] MEDS: INSULIN DETEMIR [LEVEMIR] (100 UNITS/ML) SYG SC (20:28)
[2018-04-10] MEDS: METOCLOPRAMIDE 10 MG INJ IV ×3 (00:18→12:07)
[2018-04-10] MEDS: PANTOPRAZOLE 40 MG INJ IV (06:16)
[2018-04-10] MEDS: DIPHENHYDRAMINE 50 MG INJ IV (06:21)
[2018-04-10] MEDS: INSULIN ASPART [NOVOLOG] 3 ML PEN SC ×2 (07:59→11:46)
[2018-04-10] MEDS: LUBIPROSTONE 24 MCG CAP PO (08:51)
[2018-04-10] MEDS: BUSPIRONE 10 MG TAB PO ×2 (08:51→12:11)
[2018-04-10] MEDS: DOCUSATE SODIUM 100 MG CAP PO (08:51)
[2018-04-10] MEDS: LANTHANUM 500 MG CHEW PO ×2 (08:52→12:08)
[2018-04-10] MEDS: SEVELAMER CARBONATE 800 MG TABLET PO ×2 (08:52→12:08)
[2018-04-10] MEDS: HYDROCORTISONE 5 MG TAB PO ×2 (08:52→12:11)
[2018-04-10] MEDS: POLYETHYLENE GLYCOL 17 GM PACKET PO (08:53)
[2018-04-10] MEDS: LORAZEPAM 0.5 MG TAB PO (10:20)
[2018-04-10] MEDS: HYDROmorphONE 2 MG TAB PO (14:43)
== END 2018-04-10 17:30 | disposition home or self-care (01) | DRG 896 ==
LOC: MS1 03-15 12:19 → ICU 03-27 12:21 → 6WM 04-03 23:50 → E/R 12:15 → TEL 18:46
PROVIDERS: Internal Medicine
PROC: 3E1M39Z Irrigation of Peritoneal Cavity using Dialysate, Percutaneous Approach (ICD-10-PCS; principal; 2018-03-07)
DX: F13.239 Sedative, hypnotic or anxiolytic dependence with withdrawal, unspecified (principal); N18.6 End stage renal disease; A41.9 Sepsis, unspecified organism; R65.21 Severe sepsis with septic shock; G25.82 Stiff-man syndrome; E27.40 Unspecified adrenocortical insufficiency; F33.1 Major depressive disorder, recurrent, moderate; E87.2 Acidosis; E10.22 Type 1 diabetes mellitus with diabetic chronic kidney disease; Z99.2 Dependence on renal dialysis; E87.5 Hyperkalemia; F41.0 Panic disorder [episodic paroxysmal anxiety]; E83.89 Other disorders of mineral metabolism; E10.649 Type 1 diabetes mellitus with hypoglycemia without coma; G89.29 Other chronic pain; E03.9 Hypothyroidism, unspecified; E66.01 Morbid (severe) obesity due to excess calories; Z68.37 Body mass index [BMI] 37.0-37.9, adult; E10.319 Type 1 diabetes mellitus with unspecified diabetic retinopathy without macular edema; E10.43 Type 1 diabetes mellitus with diabetic autonomic (poly)neuropathy; K31.84 Gastroparesis; D63.8 Anemia in other chronic diseases classified elsewhere; E87.70 Fluid overload, unspecified; E10.51 Type 1 diabetes mellitus with diabetic peripheral angiopathy without gangrene; E10.42 Type 1 diabetes mellitus with diabetic polyneuropathy; Z89.421 Acquired absence of other right toe(s); Z89.422 Acquired absence of other left toe(s); M70.61 Trochanteric bursitis, right hip; K59.00 Constipation, unspecified; K76.0 Fatty (change of) liver, not elsewhere classified; E55.9 Vitamin D deficiency, unspecified
CPT/HCPCS: 70450; 71045; 74018; 74176; 76700; 78264; 80048; 80053; 80061; 80076; 80202; 82306; 82330; 82550; 82553; 82962; 83036; 83605; 83735; 84100; 84439; 84443; 84484; 84703; 85025; 85610; 85730; 87040; 87070; 87081; 87102; 87116; 87340; 89051; 90945; 93005; 96372; 96374; 96375; 99284-25; 99285-25

== ENCOUNTER 2018-05-15 17:00 | Emergency (ER) | payer OTHER ==
[2018-05-15 18:33] LABS: ADD MAN DIFF? NO
[2018-05-15] MEDS: KETOROLAC 15 MG INJ IV (18:45)
[2018-05-15] MEDS: LORAZEPAM 2 MG INJ IV (18:45)
[2018-05-15 19:00] LABS: ALANINE AMINOTRANSFERASE 12 IU/L (13-69); ALBUMIN 3.4 g/dl (3.3-4.9); ALBUMIN/GLOBULIN RATIO 0.97; ALKALINE PHOSPHATASE 213 IU/L (42-121); ANION GAP 20 (5-13); ASPARTATE AMINO TRANSFERASE 22 IU/L (15-46); BLOOD UREA NITROGEN 71 mg/dl (7-20); CALCIUM 7.6 mg/dl (8.4-10.2); CARBON DIOXIDE 25 mmol/L (21-31); CHLORIDE 94 mmol/L (97-110); CREATININE 13.34 mg/dl (0.44-1.00); Estimated GFR 3 mL/min (>60); GLUCOSE 95 mg/dl (70-220); INR 0.93; LIPASE 27 U/L (23-300); POTASSIUM 4.6 mmol/L (3.5-5.1); PROTIME 12.5 Sec (11.9-14.9); SODIUM 139 mmol/L (135-144); TOTAL PROTEIN 6.9 g/dl (6.1-8.1)
[2018-05-15 19:01] LABS: PARTIAL THROMBOPLASTIN TIME 27.6 Sec (23.0-35.0)
[2018-05-15 19:03] LABS: BASOPHIL # 0.1 10^3/ul (0.0-0.1); BASOPHILS % 0.9 % (0.0-2.0); EOSINOPHILS # 0.2 10^3/ul (0.0-0.5); HEMATOCRIT 32.1 % (37.0-47.0); HEMOGLOBIN 10.4 g/dl (12.0-16.0); LYMPHOCYTES # 1.1 10^3/ul (0.8-2.9); LYMPHOCYTES % 10.1 % (15.0-51.0); MEAN CORPUSCULAR HEMOGLOBIN 33.2 pg (29.0-33.0); MEAN CORPUSCULAR HGB CONC 32.4 g/dl (32.0-37.0); MEAN CORPUSCULAR VOLUME 102.6 fl (82.0-101.0); MEAN PLATELET VOLUME 10.5 fl (7.4-10.4); MONOCYTE # 0.5 10^3/ul (0.3-0.9); MONOCYTES % 4.9 % (0.0-11.0); NEUTROPHIL # 8.8 10^3/ul (1.6-7.5); NEUTROPHILS % 81.5 % (39.0-77.0); PLATELET COUNT 229 10^3/UL (140-415); RED BLOOD COUNT 3.13 10^6/ul (4.20-5.40); RED CELL DISTRIBUTION WIDTH 13.7 % (11.5-14.5)
[2018-05-15 19:03] LABS: WHITE BLOOD COUNT 10.8 10^3/ul (4.8-10.8)
[2018-05-15 19:11] LABS: TROPONIN-I < 0.012 ng/ml (0.000-0.120)
[2018-05-15] MEDS ORDERED: DEXTROSE 50% 50 ML SYRINGE (20:04)
[2018-05-15] MEDS: DEXTROSE 50% 50 ML SYRINGE IV (20:12)
[2018-05-15 22:34] LABS: LACTIC ACID 1.1 mmol/L (0.5-2.0)
== END 2018-05-15 23:00 | disposition home or self-care (01) ==
LOC: E/R 17:00
DX: N18.6 End stage renal disease (principal); R40.2142 Coma scale, eyes open, spontaneous, at arrival to emergency department; R40.2362 Coma scale, best motor response, obeys commands, at arrival to emergency department; I45.81 Long QT syndrome; F41.9 Anxiety disorder, unspecified; F43.0 Acute stress reaction; E11.22 Type 2 diabetes mellitus with diabetic chronic kidney disease; I12.0 Hypertensive chronic kidney disease with stage 5 chronic kidney disease or end stage renal disease; Z99.2 Dependence on renal dialysis; Z79.4 Long term (current) use of insulin
CPT/HCPCS: 36415; 71045; 74176; 80053; 82962; 83605; 83690; 84484; 84703; 85025; 85610; 85730; 87040; 93005; 96374; 96375; 99285-25

== ENCOUNTER 2018-10-28 22:11 | Inpatient (IN) | payer OTHER ==
[2018-10-29 00:38] LABS: ADD MAN DIFF? NO
[2018-10-29 00:41] LABS: BASOPHIL # 0.1 10^3/ul (0.0-0.1); BASOPHILS % 0.4 % (0.0-2.0); EOSINOPHILS # 0.3 10^3/ul (0.0-0.5); HEMOGLOBIN 9.4 g/dl (12.0-16.0); LYMPHOCYTES % 7.4 % (15.0-51.0); MEAN CORPUSCULAR HEMOGLOBIN 34.7 pg (29.0-33.0); MEAN CORPUSCULAR HGB CONC 32.4 g/dl (32.0-37.0); MEAN PLATELET VOLUME 10.4 fl (7.4-10.4); MONOCYTE # 0.5 10^3/ul (0.3-0.9); MONOCYTES % 3.8 % (0.0-11.0); NEUTROPHIL # 11.5 10^3/ul (1.6-7.5); NEUTROPHILS % 85.7 % (39.0-77.0); PLATELET COUNT 237 10^3/UL (140-415); RED BLOOD COUNT 2.71 10^6/ul (4.20-5.40); RED CELL DISTRIBUTION WIDTH 15.9 % (11.5-14.5)
[2018-10-29 00:41] LABS: WHITE BLOOD COUNT 13.5 10^3/ul (4.8-10.8)
[2018-10-29 00:57] LABS: INR 0.94; PROTIME 12.7 Sec (11.9-14.9)
[2018-10-29 00:58] LABS: PARTIAL THROMBOPLASTIN TIME 29.9 Sec (23.0-35.0)
[2018-10-29 01:00] LABS: ALANINE AMINOTRANSFERASE 9 IU/L (13-69); ALBUMIN 4.3 g/dl (3.3-4.9); ALBUMIN/GLOBULIN RATIO 1.26; ALKALINE PHOSPHATASE 244 IU/L (42-121); ANION GAP 22 (5-13); ASPARTATE AMINO TRANSFERASE 21 IU/L (15-46); BLOOD UREA NITROGEN 75 mg/dl (7-20); CARBON DIOXIDE 23 mmol/L (21-31); CHLORIDE 93 mmol/L (97-110); GLUCOSE 239 mg/dl (70-220); POTASSIUM 5.3 mmol/L (3.5-5.1); SODIUM 138 mmol/L (135-144); TOTAL PROTEIN 7.7 g/dl (6.1-8.1)
[2018-10-29 01:06] LABS: CREATININE 14.96 mg/dl (0.44-1.00); Estimated GFR 3 mL/min (>60)
[2018-10-29 01:10] LABS: TROPONIN-I 0.023 ng/ml (0.000-0.120)
[2018-10-29] MEDS: morphine 4 MG/ML VIAL IV (02:08)
[2018-10-29] MEDS: ONDANSETRON 4 MG INJ IV (02:09)
[2018-10-29] MEDS ORDERED: POLYETHYLENE GLYCOL 17 GM PACKET PO (05:30)
[2018-10-29] MEDS ORDERED: GLUCAGON 1 MG INJ IM (05:30)
[2018-10-29] MEDS ORDERED: ACETAMINOPHEN 325 MG TAB PO (05:30)
[2018-10-29] MEDS ORDERED: GLUCOSE GEL 15 GRAM TUBE BUCCAL (05:30)
[2018-10-29] MEDS: HYDROmorphONE 1 MG/ML SYG IV ×4 (05:41→23:26)
[2018-10-29] MEDS: NA POLYST SULFON 15 GM/60 ML BTL PO (05:41)
[2018-10-29] MEDS: INSULIN ASPART [NOVOLOG] 3 ML PEN SC ×7 (06:33→21:00)
[2018-10-29 07:25] LABS: ADD MAN DIFF? NO
[2018-10-29 07:32] LABS: WHITE BLOOD COUNT 12.1 10^3/ul (4.8-10.8)
[2018-10-29 07:32] LABS: BASOPHIL # 0.1 10^3/ul (0.0-0.1); BASOPHILS % 0.5 % (0.0-2.0); EOSINOPHILS # 0.3 10^3/ul (0.0-0.5); EOSINOPHILS % 2.2 % (0.0-7.0); HEMATOCRIT 27.4 % (37.0-47.0); HEMOGLOBIN 8.7 g/dl (12.0-16.0); LYMPHOCYTES # 1.2 10^3/ul (0.8-2.9); LYMPHOCYTES % 9.9 % (15.0-51.0); MEAN CORPUSCULAR HEMOGLOBIN 33.7 pg (29.0-33.0); MEAN CORPUSCULAR HGB CONC 31.8 g/dl (32.0-37.0); MEAN CORPUSCULAR VOLUME 106.2 fl (82.0-101.0); MEAN PLATELET VOLUME 10.5 fl (7.4-10.4); MONOCYTE # 0.5 10^3/ul (0.3-0.9); MONOCYTES % 4.3 % (0.0-11.0); NEUTROPHILS % 82.6 % (39.0-77.0); PLATELET COUNT 217 10^3/UL (140-415); RED BLOOD COUNT 2.58 10^6/ul (4.20-5.40); RED CELL DISTRIBUTION WIDTH 15.7 % (11.5-14.5)
[2018-10-29 07:51] LABS: HEMOGLOBIN A1C 9.2 % (0-5.9)
[2018-10-29 08:00] LABS: ANION GAP 21 (5-13); BLOOD UREA NITROGEN 77 mg/dl (7-20); CARBON DIOXIDE 21 mmol/L (21-31); CHLORIDE 94 mmol/L (97-110); GLUCOSE 301 mg/dl (70-220); POTASSIUM 5.4 mmol/L (3.5-5.1); SODIUM 136 mmol/L (135-144)
[2018-10-29 08:09] LABS: CREATININE 15.43 mg/dl (0.44-1.00); Estimated GFR 3 mL/min (>60)
[2018-10-29] MEDS: DIPHENHYDRAMINE 50 MG CAP PO (08:25)
[2018-10-29] MEDS: SERTRALINE 100 MG TAB PO (08:27)
[2018-10-29] MEDS: SEVELAMER CARBONATE 0.8 GM PKT PO ×3 (08:28→17:54)
[2018-10-29] MEDS: NPH, HUMAN INSULIN ISOPHANE 3ML VIAL SC (08:51)
[2018-10-29] MEDS: BUSPIRONE 5 MG TAB PO ×3 (09:00→13:19)
[2018-10-29] MEDS: CEFEPIME 1GM/50 ML (PMX) 50 ML IVPB (11:07)
[2018-10-29] MEDS: CINACALCET 30 MG TAB PO (13:19)
[2018-10-29] MEDS ORDERED: INSULIN DETEMIR [LEVEMIR] (100 UNITS/ML) SYG SC (20:00)
[2018-10-29 21:25] LABS: HEPATITIS B SURFACE ANTIGEN NEGATIVE (NEGATIVE)
[2018-10-30] MEDS: DIPHENHYDRAMINE 50 MG CAP PO ×3 (00:40→21:54)
[2018-10-30] MEDS: ACCU-CHEK XX (01:55)
[2018-10-30] MEDS: HYDROmorphONE 1 MG/ML SYG IV ×5 (03:11→21:41)
[2018-10-30] MEDS: SEVELAMER CARBONATE 0.8 GM PKT PO ×3 (08:24→18:20)
[2018-10-30] MEDS: CINACALCET 30 MG TAB PO (08:25)
[2018-10-30] MEDS: BUSPIRONE 5 MG TAB PO ×3 (08:25→21:41)
[2018-10-30] MEDS: SERTRALINE 100 MG TAB PO (08:25)
[2018-10-30] MEDS: INSULIN ASPART [NOVOLOG] 3 ML PEN SC ×7 (08:44→21:00)
[2018-10-30] MEDS: NPH, HUMAN INSULIN ISOPHANE 3ML VIAL SC (08:44)
[2018-10-30 08:50] LABS: ADD MAN DIFF? NO
[2018-10-30 09:05] LABS: WHITE BLOOD COUNT 10.2 10^3/ul (4.8-10.8)
[2018-10-30 09:05] LABS: BASOPHIL # 0.1 10^3/ul (0.0-0.1); BASOPHILS % 0.7 % (0.0-2.0); EOSINOPHILS # 0.2 10^3/ul (0.0-0.5); EOSINOPHILS % 2.4 % (0.0-7.0); HEMATOCRIT 28.2 % (37.0-47.0); HEMOGLOBIN 8.7 g/dl (12.0-16.0); LYMPHOCYTES % 9.4 % (15.0-51.0); MEAN CORPUSCULAR HEMOGLOBIN 33.6 pg (29.0-33.0); MEAN CORPUSCULAR HGB CONC 30.9 g/dl (32.0-37.0); MEAN CORPUSCULAR VOLUME 108.9 fl (82.0-101.0); MEAN PLATELET VOLUME 10.6 fl (7.4-10.4); MONOCYTE # 0.5 10^3/ul (0.3-0.9); MONOCYTES % 4.7 % (0.0-11.0); NEUTROPHIL # 8.4 10^3/ul (1.6-7.5); NEUTROPHILS % 82.1 % (39.0-77.0); PLATELET COUNT 231 10^3/UL (140-415); RED BLOOD COUNT 2.59 10^6/ul (4.20-5.40); RED CELL DISTRIBUTION WIDTH 15.2 % (11.5-14.5)
[2018-10-30 09:34] LABS: ANION GAP 22 (5-13); BLOOD UREA NITROGEN 73 mg/dl (7-20); CALCIUM 7.8 mg/dl (8.4-10.2); CARBON DIOXIDE 23 mmol/L (21-31); CHLORIDE 90 mmol/L (97-110); GLUCOSE 388 mg/dl (70-220); MAGNESIUM 2.3 mg/dl (1.7-2.5); POTASSIUM 5.3 mmol/L (3.5-5.1); SODIUM 135 mmol/L (135-144)
[2018-10-30 09:50] LABS: CREATININE 15.45 mg/dl (0.44-1.00); Estimated GFR 3 mL/min (>60)
[2018-10-30] MEDS: CEFEPIME 1GM/50 ML (PMX) 50 ML IVPB (10:59)
[2018-10-30 11:59] LABS: FLD RBC 0 /uL; FLD WBC 16 /cmm
[2018-10-30 12:42] LABS: FLD TYPE PERITONEAL
[2018-10-30 12:42] LABS: FLD CLARITY CLEAR; FLD COLOR COLORLESS
[2018-10-30] MEDS: GLUCOSE GEL 15 GRAM TUBE PO (15:31)
[2018-10-30] MEDS: INSULIN GLARGINE [LANTus] (100 UNITS/ML) SYG SC (20:00)
[2018-10-30] MEDS: COSYNTROPIN 0.25 MG INJ IV (20:55)
[2018-10-31] MEDS: ACCU-CHEK XX (02:00)
[2018-10-31] MEDS: HYDROmorphONE 1 MG/ML SYG IV ×5 (02:15→22:47)
[2018-10-31] MEDS: DIPHENHYDRAMINE 50 MG CAP PO (07:39)
[2018-10-31] MEDS: NPH, HUMAN INSULIN ISOPHANE 3ML VIAL SC (07:40)
[2018-10-31 07:51] LABS: ADD MAN DIFF? NO
[2018-10-31] MEDS: INSULIN ASPART [NOVOLOG] 3 ML PEN SC ×7 (08:00→21:00)
[2018-10-31 08:01] LABS: ABNORMAL IP MESSAGE 1; BASOPHIL # 0.1 10^3/ul (0.0-0.1); BASOPHILS % 0.4 % (0.0-2.0); EOSINOPHILS # 0.1 10^3/ul (0.0-0.5); EOSINOPHILS % 0.8 % (0.0-7.0); HEMATOCRIT 25.6 % (37.0-47.0); HEMOGLOBIN 8.2 g/dl (12.0-16.0); LYMPHOCYTES # 0.6 10^3/ul (0.8-2.9); LYMPHOCYTES % 4.7 % (15.0-51.0); MEAN CORPUSCULAR HEMOGLOBIN 34.3 pg (29.0-33.0); MEAN CORPUSCULAR VOLUME 107.1 fl (82.0-101.0); MEAN PLATELET VOLUME 10.3 fl (7.4-10.4); MONOCYTE # 0.6 10^3/ul (0.3-0.9); NEUTROPHIL # 11.2 10^3/ul (1.6-7.5); NEUTROPHILS % 88.5 % (39.0-77.0); PLATELET COUNT 240 10^3/UL (140-415); RED BLOOD COUNT 2.39 10^6/ul (4.20-5.40); RED CELL DISTRIBUTION WIDTH 14.9 % (11.5-14.5)
[2018-10-31 08:01] LABS: WHITE BLOOD COUNT 12.6 10^3/ul (4.8-10.8)
[2018-10-31 08:05] LABS: POSITIVE DIFF @See below
[2018-10-31 08:15] LABS: ANION GAP 19 (5-13); BLOOD UREA NITROGEN 75 mg/dl (7-20); CALCIUM 7.1 mg/dl (8.4-10.2); CARBON DIOXIDE 24 mmol/L (21-31); CHLORIDE 90 mmol/L (97-110); GLUCOSE 344 mg/dl (70-220); MAGNESIUM 2.4 mg/dl (1.7-2.5); PHOSPHORUS 10.6 mg/dl (2.5-4.9); POTASSIUM 5.7 mmol/L (3.5-5.1); SODIUM 133 mmol/L (135-144)
[2018-10-31] MEDS: SEVELAMER CARBONATE 0.8 GM PKT PO ×3 (08:21→17:53)
[2018-10-31] MEDS: BUSPIRONE 5 MG TAB PO ×3 (08:22→21:38)
[2018-10-31] MEDS: SERTRALINE 100 MG TAB PO (08:22)
[2018-10-31 08:27] LABS: Estimated GFR 3 mL/min (>60)
[2018-10-31] MEDS: CEFEPIME 1GM/50 ML (PMX) 50 ML IVPB (11:17)
[2018-10-31] MEDS: LANTHANUM 500 MG CHEW PO ×2 (11:50→17:53)
[2018-10-31] MEDS: ONDANSETRON 4 MG INJ IV (13:58)
[2018-10-31] MEDS: INSULIN GLARGINE [LANTus] (100 UNITS/ML) SYG SC ×2 (14:02→20:27)
[2018-10-31 14:17] LABS: ANION GAP 19 (5-13); BLOOD UREA NITROGEN 74 mg/dl (7-20); CALCIUM 6.9 mg/dl (8.4-10.2); CARBON DIOXIDE 26 mmol/L (21-31); CHLORIDE 90 mmol/L (97-110); GLUCOSE 84 mg/dl (70-220); POTASSIUM 4.7 mmol/L (3.5-5.1); SODIUM 135 mmol/L (135-144)
[2018-10-31 14:23] LABS: CREATININE 14.77 mg/dl (0.44-1.00); Estimated GFR 3 mL/min (>60)
[2018-11-01] MEDS: ACCU-CHEK XX (02:00)
[2018-11-01] MEDS: HYDROCODONE/APAP (10/325) TAB PO (02:01)
[2018-11-01] MEDS: HYDROmorphONE 1 MG/ML SYG IV ×5 (05:21→21:18)
[2018-11-01 06:30] LABS: ADD MAN DIFF? NO
[2018-11-01 06:32] LABS: BASOPHILS % 0.4 % (0.0-2.0); EOSINOPHILS # 0.2 10^3/ul (0.0-0.5); HEMATOCRIT 25.7 % (37.0-47.0); HEMOGLOBIN 8.3 g/dl (12.0-16.0); LYMPHOCYTES # 0.7 10^3/ul (0.8-2.9); LYMPHOCYTES % 6.7 % (15.0-51.0); MEAN CORPUSCULAR HEMOGLOBIN 34.7 pg (29.0-33.0); MEAN CORPUSCULAR HGB CONC 32.3 g/dl (32.0-37.0); MEAN CORPUSCULAR VOLUME 107.5 fl (82.0-101.0); MEAN PLATELET VOLUME 10.3 fl (7.4-10.4); MONOCYTE # 0.5 10^3/ul (0.3-0.9); MONOCYTES % 4.7 % (0.0-11.0); NEUTROPHIL # 9.4 10^3/ul (1.6-7.5); NEUTROPHILS % 85.4 % (39.0-77.0); PLATELET COUNT 261 10^3/UL (140-415); RED BLOOD COUNT 2.39 10^6/ul (4.20-5.40); RED CELL DISTRIBUTION WIDTH 14.9 % (11.5-14.5)
[2018-11-01 06:32] LABS: WHITE BLOOD COUNT 10.9 10^3/ul (4.8-10.8)
[2018-11-01 06:58] LABS: ANION GAP 21 (5-13); BLOOD UREA NITROGEN 75 mg/dl (7-20); CALCIUM 7.3 mg/dl (8.4-10.2); CARBON DIOXIDE 24 mmol/L (21-31); CHLORIDE 90 mmol/L (97-110); GLUCOSE 279 mg/dl (70-220); PHOSPHORUS 10.7 mg/dl (2.5-4.9); POTASSIUM 4.9 mmol/L (3.5-5.1); SODIUM 135 mmol/L (135-144)
[2018-11-01 07:05] LABS: CREATININE 14.29 mg/dl (0.44-1.00); Estimated GFR 3 mL/min (>60)
[2018-11-01 07:25] LABS: MAGNESIUM 2.4 mg/dl (1.7-2.5)
[2018-11-01] MEDS: INSULIN ASPART [NOVOLOG] 3 ML PEN SC ×7 (07:54→20:12)
[2018-11-01] MEDS: NPH, HUMAN INSULIN ISOPHANE 3ML VIAL SC (07:54)
[2018-11-01] MEDS: BUSPIRONE 5 MG TAB PO ×3 (08:00→20:11)
[2018-11-01] MEDS: SERTRALINE 100 MG TAB PO (08:00)
[2018-11-01] MEDS: LANTHANUM 500 MG CHEW PO ×3 (08:00→17:18)
[2018-11-01] MEDS: SEVELAMER CARBONATE 0.8 GM PKT PO ×3 (08:00→17:18)
[2018-11-01] MEDS: MIDODRINE 5 MG TAB PO ×2 (09:22→15:57)
[2018-11-01] MEDS: CALCITRIOL 1 MCG INJ IV (10:07)
[2018-11-01] MEDS: CEFEPIME 1GM/50 ML (PMX) 50 ML IVPB (10:07)
[2018-11-01] MEDS: DIPHENHYDRAMINE 50 MG CAP PO ×2 (12:00→23:56)
[2018-11-01] MEDS ORDERED: HEPARIN 1000 UNITS/ML 10 ML INJ CATHETER ×2 (17:00→18:30)
[2018-11-01] MEDS: HEPARIN 1000 UNITS/ML 10 ML INJ CATHETER (17:22)
[2018-11-01] MEDS: INSULIN GLARGINE [LANTus] (100 UNITS/ML) SYG SC (20:16)
[2018-11-02] MEDS: HYDROmorphONE 1 MG/ML SYG IV ×6 (01:28→22:52)
[2018-11-02] MEDS: ACCU-CHEK XX (02:00)
[2018-11-02 07:03] LABS: ADD MAN DIFF? NO
[2018-11-02 07:05] LABS: WHITE BLOOD COUNT 12.3 10^3/ul (4.8-10.8)
[2018-11-02 07:06] LABS: BASOPHIL # 0.1 10^3/ul (0.0-0.1); BASOPHILS % 0.7 % (0.0-2.0); EOSINOPHILS # 0.2 10^3/ul (0.0-0.5); EOSINOPHILS % 1.9 % (0.0-7.0); HEMATOCRIT 27.6 % (37.0-47.0); HEMOGLOBIN 8.7 g/dl (12.0-16.0); LYMPHOCYTES # 0.8 10^3/ul (0.8-2.9); LYMPHOCYTES % 6.3 % (15.0-51.0); MEAN CORPUSCULAR HEMOGLOBIN 34.4 pg (29.0-33.0); MEAN CORPUSCULAR HGB CONC 31.5 g/dl (32.0-37.0); MEAN CORPUSCULAR VOLUME 109.1 fl (82.0-101.0); MEAN PLATELET VOLUME 10.1 fl (7.4-10.4); MONOCYTE # 0.7 10^3/ul (0.3-0.9); MONOCYTES % 5.5 % (0.0-11.0); NEUTROPHIL # 10.4 10^3/ul (1.6-7.5); NEUTROPHILS % 84.6 % (39.0-77.0); PLATELET COUNT 309 10^3/UL (140-415); RED BLOOD COUNT 2.53 10^6/ul (4.20-5.40); RED CELL DISTRIBUTION WIDTH 14.7 % (11.5-14.5)
[2018-11-02] MEDS: SEVELAMER CARBONATE 0.8 GM PKT PO ×3 (07:35→17:17)
[2018-11-02] MEDS: LANTHANUM 500 MG CHEW PO ×3 (07:36→17:38)
[2018-11-02] MEDS: INSULIN ASPART [NOVOLOG] 3 ML PEN SC ×6 (07:42→17:25)
[2018-11-02] MEDS: NPH, HUMAN INSULIN ISOPHANE 3ML VIAL SC (07:43)
[2018-11-02 07:59] LABS: ANION GAP 19 (5-13); BLOOD UREA NITROGEN 73 mg/dl (7-20); CALCIUM 8.2 mg/dl (8.4-10.2); CARBON DIOXIDE 25 mmol/L (21-31); CHLORIDE 93 mmol/L (97-110); GLUCOSE 230 mg/dl (70-220); MAGNESIUM 2.6 mg/dl (1.7-2.5); PHOSPHORUS 11.3 mg/dl (2.5-4.9); POTASSIUM 5.2 mmol/L (3.5-5.1); SODIUM 137 mmol/L (135-144)
[2018-11-02 08:26] LABS: CREATININE 14.81 mg/dl (0.44-1.00); Estimated GFR 3 mL/min (>60)
[2018-11-02] MEDS: SERTRALINE 100 MG TAB PO (08:44)
[2018-11-02] MEDS: BUSPIRONE 5 MG TAB PO ×3 (08:44→21:49)
[2018-11-02] MEDS: CEFEPIME 1GM/50 ML (PMX) 50 ML IVPB (10:30)
[2018-11-02] MEDS: CALCIUM ACETATE 667 MG CAP PO ×2 (12:41→17:17)
[2018-11-02] MEDS: DIPHENHYDRAMINE 50 MG CAP PO (19:49)
[2018-11-02] MEDS: INSULIN GLARGINE [LANTus] (100 UNITS/ML) SYG SC (21:47)
[2018-11-03] MEDS: ACCU-CHEK XX (01:47)
[2018-11-03] MEDS: HYDROmorphONE 1 MG/ML SYG IV ×5 (05:23→23:06)
[2018-11-03 06:48] LABS: ADD MAN DIFF? NO
[2018-11-03 06:57] LABS: WHITE BLOOD COUNT 11.6 10^3/ul (4.8-10.8)
[2018-11-03 06:57] LABS: BASOPHIL # 0.1 10^3/ul (0.0-0.1); BASOPHILS % 0.6 % (0.0-2.0); EOSINOPHILS # 0.3 10^3/ul (0.0-0.5); EOSINOPHILS % 2.7 % (0.0-7.0); HEMOGLOBIN 8.4 g/dl (12.0-16.0); LYMPHOCYTES # 0.7 10^3/ul (0.8-2.9); LYMPHOCYTES % 5.9 % (15.0-51.0); MEAN CORPUSCULAR HEMOGLOBIN 33.9 pg (29.0-33.0); MEAN CORPUSCULAR HGB CONC 31.1 g/dl (32.0-37.0); MEAN CORPUSCULAR VOLUME 108.9 fl (82.0-101.0); MEAN PLATELET VOLUME 10.2 fl (7.4-10.4); MONOCYTE # 0.6 10^3/ul (0.3-0.9); MONOCYTES % 5.1 % (0.0-11.0); NEUTROPHIL # 9.8 10^3/ul (1.6-7.5); PLATELET COUNT 327 10^3/UL (140-415); RED BLOOD COUNT 2.48 10^6/ul (4.20-5.40)
[2018-11-03 07:27] LABS: LACTIC ACID 1.8 mmol/L (0.5-2.0)
[2018-11-03 07:37] LABS: ANION GAP 17 (5-13); BLOOD UREA NITROGEN 73 mg/dl (7-20); CALCIUM 8.6 mg/dl (8.4-10.2); CARBON DIOXIDE 26 mmol/L (21-31); CHLORIDE 92 mmol/L (97-110); GLUCOSE 252 mg/dl (70-220); POTASSIUM 5.1 mmol/L (3.5-5.1); SODIUM 135 mmol/L (135-144)
[2018-11-03 07:47] LABS: FREE T4 (FREE THYROXINE) 0.95 ng/dl (0.64-1.79)
[2018-11-03 07:57] LABS: CREATININE 14.93 mg/dl (0.44-1.00); Estimated GFR 3 mL/min (>60)
[2018-11-03] MEDS: SEVELAMER CARBONATE 0.8 GM PKT PO ×3 (08:36→18:58)
[2018-11-03] MEDS: CALCIUM ACETATE 667 MG CAP PO ×3 (08:38→17:08)
[2018-11-03] MEDS: BUSPIRONE 5 MG TAB PO ×3 (08:38→20:37)
[2018-11-03] MEDS: SERTRALINE 100 MG TAB PO (08:38)
[2018-11-03] MEDS: LANTHANUM 500 MG CHEW PO ×3 (08:38→17:08)
[2018-11-03] MEDS: INSULIN ASPART [NOVOLOG] 3 ML PEN SC ×3 (08:41→17:11)
[2018-11-03] MEDS: NPH, HUMAN INSULIN ISOPHANE 3ML VIAL SC (08:45)
[2018-11-03] MEDS: CEFEPIME 1GM/50 ML (PMX) 50 ML IVPB (11:38)
[2018-11-03] MEDS ORDERED: VANCOMYCIN IV PER PHARMACY XX (14:30)
[2018-11-03] MEDS: VANCOMYCIN 1 GM 250 ML IVPB (17:03)
[2018-11-03] MEDS: DIPHENHYDRAMINE 50 MG CAP PO (20:38)
[2018-11-03] MEDS: INSULIN GLARGINE [LANTus] (100 UNITS/ML) SYG SC (20:59)
[2018-11-04] MEDS: ACCU-CHEK XX (01:17)
[2018-11-04] MEDS: HYDROmorphONE 1 MG/ML SYG IV ×5 (04:31→21:32)
[2018-11-04] MEDS: LEVOTHYROXINE 150 MCG TAB PO (05:21)
[2018-11-04] MEDS ORDERED: LEVOTHYROXINE 125 MCG TAB PO (06:00)
[2018-11-04] MEDS: SERTRALINE 100 MG TAB PO (08:41)
[2018-11-04] MEDS: BUSPIRONE 5 MG TAB PO ×3 (08:41→20:25)
[2018-11-04] MEDS: LANTHANUM 500 MG CHEW PO ×3 (08:42→17:24)
[2018-11-04] MEDS: CALCIUM ACETATE 667 MG CAP PO ×3 (08:42→17:23)
[2018-11-04] MEDS: SEVELAMER CARBONATE 0.8 GM PKT PO ×3 (08:43→17:23)
[2018-11-04] MEDS: INSULIN ASPART [NOVOLOG] 3 ML PEN SC ×3 (08:47→17:27)
[2018-11-04] MEDS: NPH, HUMAN INSULIN ISOPHANE 3ML VIAL SC ×2 (08:48→17:28)
[2018-11-04] MEDS: CEFEPIME 1GM/50 ML (PMX) 50 ML IVPB (10:35)
[2018-11-04] MEDS: ONDANSETRON 4 MG INJ IV (17:33)
[2018-11-04] MEDS: INSULIN GLARGINE [LANTus] (100 UNITS/ML) SYG SC (20:24)
[2018-11-05] MEDS: HYDROmorphONE 1 MG/ML SYG IV ×5 (01:30→20:41)
[2018-11-05] MEDS: ACCU-CHEK XX (02:00)
[2018-11-05 05:55] LABS: ADD MAN DIFF? NO
[2018-11-05 06:08] LABS: BASOPHIL # 0.1 10^3/ul (0.0-0.1); BASOPHILS % 0.5 % (0.0-2.0); EOSINOPHILS # 0.3 10^3/ul (0.0-0.5); EOSINOPHILS % 2.8 % (0.0-7.0); HEMATOCRIT 25.7 % (37.0-47.0); HEMOGLOBIN 8.2 g/dl (12.0-16.0); LYMPHOCYTES % 8.1 % (15.0-51.0); MEAN CORPUSCULAR HEMOGLOBIN 34.5 pg (29.0-33.0); MEAN CORPUSCULAR HGB CONC 31.9 g/dl (32.0-37.0); MEAN PLATELET VOLUME 10.1 fl (7.4-10.4); MONOCYTE # 0.6 10^3/ul (0.3-0.9); MONOCYTES % 4.8 % (0.0-11.0); NEUTROPHIL # 9.9 10^3/ul (1.6-7.5); NEUTROPHILS % 82.9 % (39.0-77.0); PLATELET COUNT 310 10^3/UL (140-415); RED BLOOD COUNT 2.38 10^6/ul (4.20-5.40); RED CELL DISTRIBUTION WIDTH 14.9 % (11.5-14.5)
[2018-11-05 06:08] LABS: WHITE BLOOD COUNT 11.9 10^3/ul (4.8-10.8)
[2018-11-05 06:50] LABS: VANCOMYCIN,RANDOM 13.8 ug/ml
[2018-11-05 06:52] LABS: ANION GAP 17 (5-13); BLOOD UREA NITROGEN 73 mg/dl (7-20); CALCIUM 9.2 mg/dl (8.4-10.2); CARBON DIOXIDE 26 mmol/L (21-31); CHLORIDE 94 mmol/L (97-110); GLUCOSE 175 mg/dl (70-220); POTASSIUM 4.8 mmol/L (3.5-5.1); SODIUM 137 mmol/L (135-144)
[2018-11-05 06:59] LABS: CREATININE 14.87 mg/dl (0.44-1.00); Estimated GFR 3 mL/min (>60)
[2018-11-05] MEDS: LEVOTHYROXINE 150 MCG TAB PO (07:18)
[2018-11-05] MEDS: SEVELAMER CARBONATE 0.8 GM PKT PO ×3 (08:17→17:31)
[2018-11-05] MEDS: SERTRALINE 100 MG TAB PO (08:17)
[2018-11-05] MEDS: BUSPIRONE 5 MG TAB PO ×3 (08:17→20:19)
[2018-11-05] MEDS: CALCIUM ACETATE 667 MG CAP PO ×3 (08:17→17:31)
[2018-11-05] MEDS: LANTHANUM 500 MG CHEW PO ×3 (08:17→17:31)
[2018-11-05] MEDS: NPH, HUMAN INSULIN ISOPHANE 3ML VIAL SC ×2 (08:25→17:21)
[2018-11-05] MEDS: INSULIN ASPART [NOVOLOG] 3 ML PEN SC ×3 (08:25→17:23)
[2018-11-05] MEDS: DIPHENHYDRAMINE 50 MG CAP PO (09:11)
[2018-11-05] MEDS: CEFEPIME 1GM/50 ML (PMX) 50 ML IVPB (09:19)
[2018-11-05] MEDS: VANCOMYCIN 750 MG (PMX) 250 ML IVPB (16:31)
[2018-11-05] MEDS: INSULIN GLARGINE [LANTus] (100 UNITS/ML) SYG SC (20:18)
[2018-11-06] MEDS: ONDANSETRON 4 MG INJ IV ×2 (01:00→08:53)
[2018-11-06] MEDS: HYDROmorphONE 1 MG/ML SYG IV ×6 (01:01→23:03)
[2018-11-06] MEDS: ACCU-CHEK XX (02:00)
[2018-11-06] MEDS: LEVOTHYROXINE 150 MCG TAB PO (05:17)
[2018-11-06 06:02] LABS: ADD MAN DIFF? NO
[2018-11-06 06:14] LABS: BASOPHIL # 0.1 10^3/ul (0.0-0.1); BASOPHILS % 0.6 % (0.0-2.0); EOSINOPHILS # 0.4 10^3/ul (0.0-0.5); EOSINOPHILS % 3.6 % (0.0-7.0); HEMATOCRIT 26.8 % (37.0-47.0); HEMOGLOBIN 8.3 g/dl (12.0-16.0); LYMPHOCYTES # 0.9 10^3/ul (0.8-2.9); LYMPHOCYTES % 8.2 % (15.0-51.0); MEAN CORPUSCULAR VOLUME 109.8 fl (82.0-101.0); MEAN PLATELET VOLUME 10.2 fl (7.4-10.4); MONOCYTE # 0.5 10^3/ul (0.3-0.9); MONOCYTES % 4.8 % (0.0-11.0); NEUTROPHIL # 8.9 10^3/ul (1.6-7.5); NEUTROPHILS % 81.8 % (39.0-77.0); PLATELET COUNT 332 10^3/UL (140-415); RED BLOOD COUNT 2.44 10^6/ul (4.20-5.40); RED CELL DISTRIBUTION WIDTH 14.9 % (11.5-14.5)
[2018-11-06 06:14] LABS: WHITE BLOOD COUNT 10.9 10^3/ul (4.8-10.8)
[2018-11-06 06:29] LABS: ANION GAP 17 (5-13); BLOOD UREA NITROGEN 72 mg/dl (7-20); CALCIUM 9.2 mg/dl (8.4-10.2); CARBON DIOXIDE 26 mmol/L (21-31); CHLORIDE 92 mmol/L (97-110); CREATININE 13.73 mg/dl (0.44-1.00); Estimated GFR 3 mL/min (>60); GLUCOSE 210 mg/dl (70-220); MAGNESIUM 2.8 mg/dl (1.7-2.5); PHOSPHORUS 7.6 mg/dl (2.5-4.9); POTASSIUM 4.9 mmol/L (3.5-5.1); SODIUM 135 mmol/L (135-144)
[2018-11-06] MEDS: NPH, HUMAN INSULIN ISOPHANE 3ML VIAL SC ×2 (08:33→17:17)
[2018-11-06] MEDS: LANTHANUM 500 MG CHEW PO ×3 (08:36→17:13)
[2018-11-06] MEDS: SERTRALINE 100 MG TAB PO (08:36)
[2018-11-06] MEDS: BUSPIRONE 5 MG TAB PO ×3 (08:36→20:52)
[2018-11-06] MEDS: CALCIUM ACETATE 667 MG CAP PO ×4 (08:36→17:13)
[2018-11-06] MEDS: SEVELAMER CARBONATE 0.8 GM PKT PO ×4 (08:37→17:13)
[2018-11-06] MEDS: INSULIN ASPART [NOVOLOG] 3 ML PEN SC ×3 (08:37→17:17)
[2018-11-06] MEDS: CEFEPIME 1GM/50 ML (PMX) 50 ML IVPB (11:10)
[2018-11-06] MEDS: INSULIN GLARGINE [LANTus] (100 UNITS/ML) SYG SC (20:52)
[2018-11-07] MEDS: ACCU-CHEK XX (02:00)
[2018-11-07] MEDS: LEVOTHYROXINE 150 MCG TAB PO (05:38)
[2018-11-07] MEDS: HYDROmorphONE 1 MG/ML SYG IV ×4 (05:43→20:11)
[2018-11-07] MEDS: NPH, HUMAN INSULIN ISOPHANE 3ML VIAL SC ×2 (07:59→17:53)
[2018-11-07] MEDS: SEVELAMER CARBONATE 0.8 GM PKT PO ×3 (08:00→17:29)
[2018-11-07] MEDS: CALCIUM ACETATE 667 MG CAP PO ×3 (08:00→17:29)
[2018-11-07] MEDS: LANTHANUM 500 MG CHEW PO ×3 (08:00→17:29)
[2018-11-07] MEDS: INSULIN ASPART [NOVOLOG] 3 ML PEN SC ×3 (08:06→17:57)
[2018-11-07] MEDS: BUSPIRONE 5 MG TAB PO ×3 (08:07→20:21)
[2018-11-07] MEDS: SERTRALINE 100 MG TAB PO (08:07)
[2018-11-07 08:34] LABS: ADD MAN DIFF? NO
[2018-11-07 08:39] LABS: WHITE BLOOD COUNT 9.8 10^3/ul (4.8-10.8)
[2018-11-07 08:39] LABS: BASOPHIL # 0.1 10^3/ul (0.0-0.1); BASOPHILS % 0.8 % (0.0-2.0); EOSINOPHILS # 0.3 10^3/ul (0.0-0.5); EOSINOPHILS % 3.4 % (0.0-7.0); HEMATOCRIT 28.7 % (37.0-47.0); HEMOGLOBIN 8.9 g/dl (12.0-16.0); LYMPHOCYTES # 0.8 10^3/ul (0.8-2.9); LYMPHOCYTES % 8.5 % (15.0-51.0); MEAN CORPUSCULAR HEMOGLOBIN 34.2 pg (29.0-33.0); MEAN CORPUSCULAR VOLUME 110.4 fl (82.0-101.0); MEAN PLATELET VOLUME 10.3 fl (7.4-10.4); MONOCYTE # 0.4 10^3/ul (0.3-0.9); MONOCYTES % 4.4 % (0.0-11.0); NEUTROPHILS % 81.8 % (39.0-77.0); PLATELET COUNT 332 10^3/UL (140-415); RED CELL DISTRIBUTION WIDTH 14.9 % (11.5-14.5)
[2018-11-07] MEDS: ONDANSETRON 4 MG INJ IV (08:56)
[2018-11-07 09:04] LABS: ANION GAP 15 (5-13); BLOOD UREA NITROGEN 73 mg/dl (7-20); CALCIUM 9.9 mg/dl (8.4-10.2); CARBON DIOXIDE 30 mmol/L (21-31); CHLORIDE 94 mmol/L (97-110); GLUCOSE 132 mg/dl (70-220); POTASSIUM 4.4 mmol/L (3.5-5.1); SODIUM 139 mmol/L (135-144)
[2018-11-07 09:15] LABS: CREATININE 14.33 mg/dl (0.44-1.00); Estimated GFR 3 mL/min (>60)
[2018-11-07] MEDS: HYDROCODONE/APAP (10/325) TAB PO ×2 (09:17→18:27)
[2018-11-07] MEDS: CEFEPIME 1GM/50 ML (PMX) 50 ML IVPB (10:42)
[2018-11-07] MEDS: INSULIN GLARGINE [LANTus] (100 UNITS/ML) SYG SC (20:21)
[2018-11-08] MEDS: HYDROmorphONE 1 MG/ML SYG IV ×6 (00:07→21:58)
[2018-11-08] MEDS: ACCU-CHEK XX (01:42)
[2018-11-08] MEDS: LEVOTHYROXINE 150 MCG TAB PO (05:31)
[2018-11-08 07:15] LABS: ADD MAN DIFF? NO
[2018-11-08 07:18] LABS: BASOPHIL # 0.1 10^3/ul (0.0-0.1); BASOPHILS % 0.6 % (0.0-2.0); EOSINOPHILS # 0.3 10^3/ul (0.0-0.5); EOSINOPHILS % 3.6 % (0.0-7.0); HEMATOCRIT 27.7 % (37.0-47.0); HEMOGLOBIN 8.6 g/dl (12.0-16.0); LYMPHOCYTES # 0.9 10^3/ul (0.8-2.9); LYMPHOCYTES % 9.2 % (15.0-51.0); MEAN CORPUSCULAR HEMOGLOBIN 34.1 pg (29.0-33.0); MEAN CORPUSCULAR VOLUME 109.9 fl (82.0-101.0); MEAN PLATELET VOLUME 10.1 fl (7.4-10.4); MONOCYTE # 0.4 10^3/ul (0.3-0.9); MONOCYTES % 4.6 % (0.0-11.0); NEUTROPHIL # 7.6 10^3/ul (1.6-7.5); NEUTROPHILS % 80.7 % (39.0-77.0); PLATELET COUNT 307 10^3/UL (140-415); RED BLOOD COUNT 2.52 10^6/ul (4.20-5.40); RED CELL DISTRIBUTION WIDTH 14.9 % (11.5-14.5)
[2018-11-08 07:18] LABS: WHITE BLOOD COUNT 9.4 10^3/ul (4.8-10.8)
[2018-11-08 07:40] LABS: ANION GAP 18 (5-13); BLOOD UREA NITROGEN 75 mg/dl (7-20); CALCIUM 9.8 mg/dl (8.4-10.2); CARBON DIOXIDE 28 mmol/L (21-31); CHLORIDE 92 mmol/L (97-110); GLUCOSE 198 mg/dl (70-220); POTASSIUM 4.6 mmol/L (3.5-5.1); SODIUM 138 mmol/L (135-144)
[2018-11-08 07:46] LABS: CREATININE 14.59 mg/dl (0.44-1.00); Estimated GFR 3 mL/min (>60)
[2018-11-08] MEDS: CALCIUM ACETATE 667 MG CAP PO ×3 (08:43→17:37)
[2018-11-08] MEDS: SERTRALINE 100 MG TAB PO (08:43)
[2018-11-08] MEDS: LANTHANUM 500 MG CHEW PO ×3 (08:43→17:36)
[2018-11-08] MEDS: BUSPIRONE 5 MG TAB PO ×3 (08:44→20:59)
[2018-11-08] MEDS: ONDANSETRON 4 MG INJ IV ×2 (08:44→19:39)
[2018-11-08] MEDS: DIPHENHYDRAMINE 50 MG CAP PO ×2 (08:44→19:39)
[2018-11-08] MEDS: INSULIN ASPART [NOVOLOG] 3 ML PEN SC ×3 (08:48→17:41)
[2018-11-08] MEDS: NPH, HUMAN INSULIN ISOPHANE 3ML VIAL SC ×2 (08:51→17:41)
[2018-11-08] MEDS: SEVELAMER CARBONATE 0.8 GM PKT PO ×3 (09:31→17:37)
[2018-11-08] MEDS: SEVELAMER CARBONATE 2.4 GM PKT PO ×3 (09:31→17:37)
[2018-11-08] MEDS: CEFEPIME 1GM/50 ML (PMX) 50 ML IVPB (10:48)
[2018-11-08] MEDS: INSULIN GLARGINE [LANTus] (100 UNITS/ML) SYG SC (21:01)
[2018-11-09] MEDS: ACCU-CHEK XX (02:00)
[2018-11-09] MEDS: HYDROmorphONE 1 MG/ML SYG IV ×5 (02:42→20:20)
[2018-11-09] MEDS: DIPHENHYDRAMINE 50 MG CAP PO (05:07)
[2018-11-09] MEDS: LEVOTHYROXINE 150 MCG TAB PO (05:30)
[2018-11-09 07:08] LABS: VANCOMYCIN,RANDOM 17.6 ug/ml
[2018-11-09] MEDS: CALCIUM ACETATE 667 MG CAP PO ×3 (08:19→17:31)
[2018-11-09] MEDS: SEVELAMER CARBONATE 2.4 GM PKT PO ×3 (08:19→17:30)
[2018-11-09] MEDS: SEVELAMER CARBONATE 0.8 GM PKT PO ×3 (08:19→17:31)
[2018-11-09] MEDS: BUSPIRONE 5 MG TAB PO ×3 (08:19→20:19)
[2018-11-09] MEDS: SERTRALINE 100 MG TAB PO (08:20)
[2018-11-09] MEDS: LANTHANUM 500 MG CHEW PO ×3 (08:20→17:31)
[2018-11-09] MEDS: NPH, HUMAN INSULIN ISOPHANE 3ML VIAL SC ×2 (08:21→17:34)
[2018-11-09] MEDS: INSULIN ASPART [NOVOLOG] 3 ML PEN SC ×5 (08:22→20:20)
[2018-11-09] MEDS: CEFEPIME 1GM/50 ML (PMX) 50 ML IVPB (12:14)
[2018-11-09] MEDS: VANCOMYCIN 750 MG (PMX) 250 ML IVPB (16:04)
[2018-11-09] MEDS: ONDANSETRON 4 MG INJ IV (18:35)
[2018-11-09] MEDS: HYDROCODONE/APAP (10/325) TAB PO (18:35)
[2018-11-09] MEDS: INSULIN GLARGINE [LANTus] (100 UNITS/ML) SYG SC (20:00)
[2018-11-10] MEDS: HYDROmorphONE 1 MG/ML SYG IV ×6 (00:15→21:17)
[2018-11-10] MEDS: ACCU-CHEK XX (00:19)
[2018-11-10] MEDS: ONDANSETRON 4 MG INJ IV (04:30)
[2018-11-10] MEDS: LEVOTHYROXINE 150 MCG TAB PO (04:37)
[2018-11-10 06:31] LABS: ADD MAN DIFF? NO
[2018-11-10 06:35] LABS: WHITE BLOOD COUNT 10.3 10^3/ul (4.8-10.8)
[2018-11-10 06:35] LABS: BASOPHIL # 0.1 10^3/ul (0.0-0.1); BASOPHILS % 0.6 % (0.0-2.0); EOSINOPHILS # 0.3 10^3/ul (0.0-0.5); EOSINOPHILS % 2.6 % (0.0-7.0); HEMATOCRIT 29.3 % (37.0-47.0); LYMPHOCYTES # 0.8 10^3/ul (0.8-2.9); MEAN CORPUSCULAR HEMOGLOBIN 33.6 pg (29.0-33.0); MEAN CORPUSCULAR HGB CONC 30.7 g/dl (32.0-37.0); MEAN CORPUSCULAR VOLUME 109.3 fl (82.0-101.0); MEAN PLATELET VOLUME 10.5 fl (7.4-10.4); MONOCYTE # 0.5 10^3/ul (0.3-0.9); MONOCYTES % 4.6 % (0.0-11.0); NEUTROPHIL # 8.6 10^3/ul (1.6-7.5); NEUTROPHILS % 83.2 % (39.0-77.0); NUCLEATED RED BLOOD CELLS% 0.2 /100WBC (0.0-0.0); PLATELET COUNT 282 10^3/UL (140-415); RED BLOOD COUNT 2.68 10^6/ul (4.20-5.40); RED CELL DISTRIBUTION WIDTH 15.1 % (11.5-14.5)
[2018-11-10 07:10] LABS: ANION GAP 18 (5-13); BLOOD UREA NITROGEN 75 mg/dl (7-20); CARBON DIOXIDE 27 mmol/L (21-31); CHLORIDE 91 mmol/L (97-110); GLUCOSE 236 mg/dl (70-220); MAGNESIUM 3.1 mg/dl (1.7-2.5); PHOSPHORUS 5.5 mg/dl (2.5-4.9); POTASSIUM 4.7 mmol/L (3.5-5.1); SODIUM 136 mmol/L (135-144)
[2018-11-10 07:17] LABS: Estimated GFR 3 mL/min (>60)
[2018-11-10 07:22] LABS: CREATININE 13.96 mg/dl (0.44-1.00)
[2018-11-10] MEDS: INSULIN ASPART [NOVOLOG] 3 ML PEN SC ×7 (08:55→21:00)
[2018-11-10] MEDS: NPH, HUMAN INSULIN ISOPHANE 3ML VIAL SC ×2 (08:57→17:25)
[2018-11-10] MEDS: BUSPIRONE 5 MG TAB PO ×3 (09:00→21:16)
[2018-11-10] MEDS: SERTRALINE 100 MG TAB PO (09:02)
[2018-11-10] MEDS: CALCIUM ACETATE 667 MG CAP PO ×3 (09:06→17:22)
[2018-11-10] MEDS: LANTHANUM 500 MG CHEW PO ×3 (09:07→17:22)
[2018-11-10] MEDS: SEVELAMER CARBONATE 0.8 GM PKT PO ×3 (09:08→17:23)
[2018-11-10] MEDS: SEVELAMER CARBONATE 2.4 GM PKT PO ×3 (09:13→17:23)
[2018-11-10] MEDS: CEFEPIME 1GM/50 ML (PMX) 50 ML IVPB (10:58)
[2018-11-10] MEDS: INSULIN GLARGINE [LANTus] (100 UNITS/ML) SYG SC (20:09)
[2018-11-11] MEDS: ONDANSETRON 4 MG INJ IV (01:17)
[2018-11-11] MEDS: HYDROmorphONE 1 MG/ML SYG IV ×6 (01:17→22:34)
[2018-11-11] MEDS: ACCU-CHEK XX (02:00)
[2018-11-11] MEDS: LEVOTHYROXINE 150 MCG TAB PO (06:10)
[2018-11-11] MEDS: DIPHENHYDRAMINE 50 MG CAP PO (07:44)
[2018-11-11] MEDS: INSULIN ASPART [NOVOLOG] 3 ML PEN SC ×7 (08:34→20:16)
[2018-11-11] MEDS: NPH, HUMAN INSULIN ISOPHANE 3ML VIAL SC ×2 (08:34→17:21)
[2018-11-11] MEDS: BUSPIRONE 5 MG TAB PO ×3 (08:37→20:14)
[2018-11-11] MEDS: SERTRALINE 100 MG TAB PO (08:37)
[2018-11-11] MEDS: SEVELAMER CARBONATE 2.4 GM PKT PO ×3 (08:37→17:18)
[2018-11-11] MEDS: SEVELAMER CARBONATE 0.8 GM PKT PO ×3 (08:37→17:18)
[2018-11-11] MEDS: LANTHANUM 500 MG CHEW PO ×3 (08:38→17:17)
[2018-11-11] MEDS: CALCIUM ACETATE 667 MG CAP PO ×3 (08:38→17:18)
[2018-11-11] MEDS: CEFEPIME 1GM/50 ML (PMX) 50 ML IVPB (10:30)
[2018-11-11] MEDS: METOCLOPRAMIDE 10 MG INJ IV (18:24)
[2018-11-11] MEDS: INSULIN GLARGINE [LANTus] (100 UNITS/ML) SYG SC (20:16)
[2018-11-12] MEDS: HYDROCODONE/APAP (10/325) TAB PO (01:54)
[2018-11-12] MEDS: ACCU-CHEK XX (02:00)
[2018-11-12] MEDS: HYDROmorphONE 1 MG/ML SYG IV ×5 (02:42→21:48)
[2018-11-12] MEDS: LEVOTHYROXINE 150 MCG TAB PO (05:24)
[2018-11-12] MEDS: NPH, HUMAN INSULIN ISOPHANE 3ML VIAL SC ×2 (08:18→17:32)
[2018-11-12] MEDS: INSULIN ASPART [NOVOLOG] 3 ML PEN SC ×7 (08:19→20:49)
[2018-11-12] MEDS: LANTHANUM 500 MG CHEW PO ×3 (08:20→17:37)
[2018-11-12] MEDS: BUSPIRONE 5 MG TAB PO ×3 (08:20→20:50)
[2018-11-12] MEDS: SEVELAMER CARBONATE 0.8 GM PKT PO ×3 (08:20→17:37)
[2018-11-12] MEDS: SEVELAMER CARBONATE 2.4 GM PKT PO ×3 (08:20→17:37)
[2018-11-12] MEDS: SERTRALINE 100 MG TAB PO (08:20)
[2018-11-12] MEDS: CALCIUM ACETATE 667 MG CAP PO ×3 (08:20→17:37)
[2018-11-12] MEDS: METOCLOPRAMIDE 10 MG INJ IV (09:03)
[2018-11-12] MEDS: CEFEPIME 1GM/50 ML (PMX) 50 ML IVPB (11:03)
[2018-11-12] MEDS: MIDODRINE 5 MG TAB PO (14:34)
[2018-11-12] MEDS: ONDANSETRON 4 MG INJ IV (17:32)
[2018-11-12] MEDS: PANTOPRAZOLE (EC) 40 MG TAB PO (17:37)
[2018-11-12] MEDS: INSULIN GLARGINE [LANTus] (100 UNITS/ML) SYG SC (20:49)
[2018-11-13] MEDS: HYDROmorphONE 1 MG/ML SYG IV ×5 (01:56→19:27)
[2018-11-13] MEDS: ACCU-CHEK XX (02:00)
[2018-11-13] MEDS: ONDANSETRON 4 MG INJ IV ×2 (04:11→11:07)
[2018-11-13] MEDS: PANTOPRAZOLE (EC) 40 MG TAB PO (05:35)
[2018-11-13] MEDS: LEVOTHYROXINE 150 MCG TAB PO (05:35)
[2018-11-13 06:06] LABS: ADD MAN DIFF? NO
[2018-11-13 06:16] LABS: ABNORMAL IP MESSAGE 1; BASOPHIL # 0.1 10^3/ul (0.0-0.1); BASOPHILS % 0.6 % (0.0-2.0); EOSINOPHILS # 0.1 10^3/ul (0.0-0.5); EOSINOPHILS % 1.1 % (0.0-7.0); HEMATOCRIT 32.5 % (37.0-47.0); LYMPHOCYTES # 0.5 10^3/ul (0.8-2.9); LYMPHOCYTES % 3.8 % (15.0-51.0); MEAN CORPUSCULAR HEMOGLOBIN 33.6 pg (29.0-33.0); MEAN CORPUSCULAR HGB CONC 30.8 g/dl (32.0-37.0); MEAN CORPUSCULAR VOLUME 109.1 fl (82.0-101.0); MEAN PLATELET VOLUME 10.9 fl (7.4-10.4); MONOCYTE # 0.6 10^3/ul (0.3-0.9); MONOCYTES % 4.7 % (0.0-11.0); NEUTROPHILS % 89.3 % (39.0-77.0); NUCLEATED RED BLOOD CELLS% 0.2 /100WBC (0.0-0.0); PLATELET COUNT 257 10^3/UL (140-415); RED BLOOD COUNT 2.98 10^6/ul (4.20-5.40); RED CELL DISTRIBUTION WIDTH 15.4 % (11.5-14.5)
[2018-11-13 06:16] LABS: WHITE BLOOD COUNT 12.3 10^3/ul (4.8-10.8)
[2018-11-13 06:31] LABS: POSITIVE DIFF @See below
[2018-11-13 06:41] LABS: ANION GAP 17 (5-13); BLOOD UREA NITROGEN 77 mg/dl (7-20); CARBON DIOXIDE 28 mmol/L (21-31); CHLORIDE 90 mmol/L (97-110); CREATININE 12.96 mg/dl (0.44-1.00); Estimated GFR 3 mL/min (>60); GLUCOSE 186 mg/dl (70-220); POTASSIUM 4.7 mmol/L (3.5-5.1); SODIUM 135 mmol/L (135-144)
[2018-11-13] MEDS ORDERED: NA BICARBONATE 8.4% 50 ML SYG (07:00)
[2018-11-13] MEDS: SEVELAMER CARBONATE 0.8 GM PKT PO ×3 (08:28→17:35)
[2018-11-13] MEDS: BUSPIRONE 5 MG TAB PO ×3 (08:28→20:31)
[2018-11-13] MEDS: SERTRALINE 100 MG TAB PO (08:28)
[2018-11-13] MEDS: LANTHANUM 500 MG CHEW PO ×3 (08:28→17:35)
[2018-11-13] MEDS: CALCIUM ACETATE 667 MG CAP PO ×3 (08:28→17:35)
[2018-11-13] MEDS: SEVELAMER CARBONATE 2.4 GM PKT PO ×3 (08:29→17:35)
[2018-11-13] MEDS: NPH, HUMAN INSULIN ISOPHANE 3ML VIAL SC ×2 (08:36→17:00)
[2018-11-13] MEDS: INSULIN ASPART [NOVOLOG] 3 ML PEN SC ×7 (08:36→20:31)
[2018-11-13] MEDS: HYDROCODONE/APAP (10/325) TAB PO (08:39)
[2018-11-13] MEDS: CEFEPIME 1GM/50 ML (PMX) 50 ML IVPB (10:12)
[2018-11-13] MEDS: SOD CHLORIDE 0.9% 250 ML IV (13:34)
[2018-11-13] MEDS: SOD CHLORIDE 0.9% 500 ML IV (13:51)
[2018-11-13] MEDS: ALBUMIN HUMAN 25% 100 ML IV (13:59)
[2018-11-13] MEDS: MEROPENEM 500MG/50 ML (PMX) 50 ML IVPB ×2 (14:00→20:31)
[2018-11-13 14:47] LABS: ALANINE AMINOTRANSFERASE 13 IU/L (13-69); ALBUMIN 3.8 g/dl (3.3-4.9); ALBUMIN/GLOBULIN RATIO 1.08; ALKALINE PHOSPHATASE 189 IU/L (42-121); ANION GAP 18 (5-13); ASPARTATE AMINO TRANSFERASE 28 IU/L (15-46); BLOOD UREA NITROGEN 82 mg/dl (7-20); CALCIUM 10.2 mg/dl (8.4-10.2); CARBON DIOXIDE 25 mmol/L (21-31); CHLORIDE 91 mmol/L (97-110); GLUCOSE 149 mg/dl (70-220); POTASSIUM 4.6 mmol/L (3.5-5.1); SODIUM 134 mmol/L (135-144); TOTAL PROTEIN 7.3 g/dl (6.1-8.1)
[2018-11-13 14:49] LABS: LACTIC ACID 4.9 mmol/L (0.5-2.0)
[2018-11-13 14:59] LABS: Estimated GFR 3 mL/min (>60)
[2018-11-13 16:11] LABS: LIPASE < 10 U/L (23-300)
[2018-11-13] MEDS: NORepinephrine 8MG/250 ML (PMX 250 ML IV (16:57)
[2018-11-13] MEDS: INSULIN GLARGINE [LANTus] (100 UNITS/ML) SYG SC (20:00)
[2018-11-13] MEDS ORDERED: MIDAZOLAM 1 MG/ML 2 ML INJ (20:29)
[2018-11-13] MEDS ORDERED: PHENYLephrine 10 MG INJ ×2 (20:51→21:42)
[2018-11-13 23:13] LABS: ADD MAN DIFF? NO
[2018-11-13 23:14] LABS: ABNORMAL IP MESSAGE 1; BASOPHILS % 0.6 % (0.0-2.0); EOSINOPHILS % 0.8 % (0.0-7.0); HEMATOCRIT 27.3 % (37.0-47.0); HEMOGLOBIN 8.8 g/dl (12.0-16.0); LYMPHOCYTES # 0.4 10^3/ul (0.8-2.9); LYMPHOCYTES % 8.6 % (15.0-51.0); MEAN CORPUSCULAR HEMOGLOBIN 34.5 pg (29.0-33.0); MEAN CORPUSCULAR HGB CONC 32.2 g/dl (32.0-37.0); MEAN CORPUSCULAR VOLUME 107.1 fl (82.0-101.0); MEAN PLATELET VOLUME 10.6 fl (7.4-10.4); MONOCYTE # 0.5 10^3/ul (0.3-0.9); MONOCYTES % 10.9 % (0.0-11.0); NEUTROPHIL # 3.7 10^3/ul (1.6-7.5); NEUTROPHILS % 76.2 % (39.0-77.0); NUCLEATED RED BLOOD CELLS% 0.4 /100WBC (0.0-0.0); PLATELET COUNT 216 10^3/UL (140-415); RED BLOOD COUNT 2.55 10^6/ul (4.20-5.40); RED CELL DISTRIBUTION WIDTH 15.6 % (11.5-14.5)
[2018-11-13 23:14] LABS: WHITE BLOOD COUNT 4.9 10^3/ul (4.8-10.8)
[2018-11-13 23:17] LABS: POSITIVE DIFF @See below
[2018-11-13] MEDS ORDERED: ROCURONIUM 50 MG INJ (23:30)
[2018-11-13] MEDS ORDERED: LIDOCAINE 2% (SDV) 5 ML INJ (23:30)
[2018-11-13] MEDS ORDERED: ETOMIDATE 20 MG INJ (23:30)
[2018-11-13 23:34] LABS: INR 1.35; PROTIME 16.8 Sec (11.9-14.9); PT RATIO 1.3
[2018-11-13 23:35] LABS: PARTIAL THROMBOPLASTIN TIME 34.9 Sec (23.0-35.0)
[2018-11-13] MEDS ORDERED: ONDANSETRON 4 MG INJ (23:37)
[2018-11-13 23:45] LABS: LACTIC ACID 5.4 mmol/L (0.5-2.0)
[2018-11-13 23:55] LABS: Estimated GFR 3 mL/min (>60)
[2018-11-14] MEDS ORDERED: PHENYLephrine 20MG IN 250 ML 250 ML IV
[2018-11-14] MEDS ORDERED: NORepinephrine 8MG/250 ML (PMX 250 ML IV
[2018-11-14 00:01] LABS: ANION GAP 22 (5-13); ANISOCYTOSIS 1+ (0-0); BAND NEUTROPHILS #M 2.1 10^3/ul (0.0-0.6); BAND NEUTROPHILS % (M) 43 % (0-4); CARBON DIOXIDE 20 mmol/L (21-31); CHLORIDE 92 mmol/L (97-110); EOSINOPHILS % (M) 1 % (0-7); ERYTHROBLAST% (NRBC) (M) 3 % (0-0); GIANT THROMBO% (M) 3 % (0-0); LYMPHOCYTES #M 0.6 10^3/ul (0.8-2.9); LYMPHOCYTES % (M) 14 % (15-51); MONOCYTE #M 0.7 10^3/ul (0.3-0.9); MONOCYTES % (M) 15 % (0-11); PLATELET ESTIMATE NORMAL; POLYCHROMASIA 2+ (0-0); POTASSIUM 4.7 mmol/L (3.5-5.1); SEG NEUT #M 1.3 10^3/ul (1.6-7.5); SEGMENTED NEUTROPHILS (M) % 24 % (39-77); SMUDGE%M 2 % (0-0); SODIUM 134 mmol/L (135-144)
[2018-11-14 00:02] LABS: BLOOD UREA NITROGEN 85 mg/dl (7-20); CALCIUM 9.4 mg/dl (8.4-10.2); CREATININE 12.58 mg/dl (0.44-1.00); GLUCOSE 251 mg/dl (70-220)
[2018-11-14] MEDS ORDERED: FENTAnyl 50 MCG/ML VIAL IV ×2 (00:30)
[2018-11-14] MEDS ORDERED: morphine (1 MG/ML) 10ML SYRINGE IV ×2 (00:30)
[2018-11-14] MEDS ORDERED: LORAZEPAM 2 MG INJ IV (00:30)
[2018-11-14] MEDS ORDERED: ONDANSETRON 4 MG INJ IV (00:30)
[2018-11-14] MEDS ORDERED: MIDAZOLAM 1 MG/ML 2 ML INJ IV (00:30)
[2018-11-14] MEDS ORDERED: EPHEDrine SULFATE 50 MG/5 ML SYG IV (00:30)
[2018-11-14] MEDS ORDERED: MEPERIDINE 25 MG INJ IV (00:30)
[2018-11-14 01:08] LABS: ADD MAN DIFF? NO
[2018-11-14 01:09] LABS: AADO2 Arterial 229.6 mmHg (7.0-24.0); ABNORMAL IP MESSAGE 1; Arterial Base Excess -0.7 mmol/L (-3.0-3); Arterial Blood Gas Oxygen Sat 98.7 mmHG (95.0-98.0); Arterial COHb 0.3 % (0.0-3.0); Arterial HCO3 24.5 mmol/L (22.0-26.0); Arterial MetHb 0.4 % (0.0-1.5); Arterial pCO2 42.6 mmhg (35-45); BASOPHIL # 0.1 10^3/ul (0.0-0.1); BASOPHILS % 1.3 % (0.0-2.0); EOSINOPHILS % 0.7 % (0.0-7.0); HEMATOCRIT 27.7 % (37.0-47.0); HEMOGLOBIN 8.9 g/dl (12.0-16.0); LYMPHOCYTES # 0.6 10^3/ul (0.8-2.9); LYMPHOCYTES % 10.3 % (15.0-51.0); MEAN CORPUSCULAR HEMOGLOBIN 34.4 pg (29.0-33.0); MEAN CORPUSCULAR HGB CONC 32.1 g/dl (32.0-37.0); MEAN CORPUSCULAR VOLUME 106.9 fl (82.0-101.0); MODE VENT - AC; MONOCYTE # 0.5 10^3/ul (0.3-0.9); NEUTROPHIL # 4.6 10^3/ul (1.6-7.5); NEUTROPHILS % 75.8 % (39.0-77.0); NUCLEATED RED BLOOD CELLS% 0.5 /100WBC (0.0-0.0); PLATELET COUNT 236 10^3/UL (140-415); RED BLOOD COUNT 2.59 10^6/ul (4.20-5.40); RED CELL DISTRIBUTION WIDTH 15.5 % (11.5-14.5); Site A-Line
[2018-11-14 01:09] LABS: WHITE BLOOD COUNT 6.1 10^3/ul (4.8-10.8)
[2018-11-14 01:10] LABS: POSITIVE DIFF @See below
[2018-11-14] MEDS: LACTATED RINGER'S 250 ML IV (01:24)
[2018-11-14 01:29] LABS: ALANINE AMINOTRANSFERASE 17 IU/L (13-69); ALBUMIN 3.5 g/dl (3.3-4.9); ALBUMIN/GLOBULIN RATIO 1.25; ALKALINE PHOSPHATASE 189 IU/L (42-121); ANION GAP 19 (5-13); ASPARTATE AMINO TRANSFERASE 31 IU/L (15-46); BILIRUBIN,INDIRECT 0.1 mg/dl (0-1.1); BILIRUBIN,TOTAL 0.1 mg/dl (0.2-1.3); BLOOD UREA NITROGEN 85 mg/dl (7-20); CARBON DIOXIDE 23 mmol/L (21-31); CHLORIDE 93 mmol/L (97-110); GLUCOSE 305 mg/dl (70-220); POTASSIUM 4.6 mmol/L (3.5-5.1); SODIUM 135 mmol/L (135-144); TOTAL PROTEIN 6.3 g/dl (6.1-8.1)
[2018-11-14 01:35] LABS: Estimated GFR 3 mL/min (>60)
[2018-11-14] MEDS: ACCU-CHEK XX ×18 (01:48→23:15)
[2018-11-14] MEDS: MIDAZOLAM (DRIP) 50 mg/50 mL 50 ML IV ×4 (01:52→23:13)
[2018-11-14 02:02] LABS: CREATININE 11.93 mg/dl (0.44-1.00)
[2018-11-14] MEDS: NORepinephrine 8MG/250 ML (PMX 250 ML IV ×2 (02:33→06:53)
[2018-11-14] MEDS: PHENYLephrine 80 MG in DEXTROSE 5% 242 ML IV (03:05)
[2018-11-14] MEDS: DOPamine-D5W 1.6 MG/ML 250 ML IV (03:34)
[2018-11-14] MEDS: VASOPRESSIN 60 UNIT in DEXTROSE 5% 57 ML IV ×2 (04:16→09:19)
[2018-11-14] MEDS: LEVOTHYROXINE 150 MCG TAB PO (05:04)
[2018-11-14] MEDS: PANTOPRAZOLE (EC) 40 MG TAB PO (05:04)
[2018-11-14 05:14] LABS: WHITE BLOOD COUNT 5.9 10^3/ul (4.8-10.8)
[2018-11-14 05:14] LABS: ABNORMAL IP MESSAGE 1; HEMATOCRIT 29.9 % (37.0-47.0); HEMOGLOBIN 9.4 g/dl (12.0-16.0); MEAN CORPUSCULAR HEMOGLOBIN 34.6 pg (29.0-33.0); MEAN CORPUSCULAR HGB CONC 31.4 g/dl (32.0-37.0); MEAN CORPUSCULAR VOLUME 109.9 fl (82.0-101.0); NUCLEATED RED BLOOD CELLS% 0.5 /100WBC (0.0-0.0); PLATELET COUNT 265 10^3/UL (140-415); RED BLOOD COUNT 2.72 10^6/ul (4.20-5.40); RED CELL DISTRIBUTION WIDTH 15.8 % (11.5-14.5)
[2018-11-14 05:37] LABS: POSITIVE DIFF @See below
[2018-11-14 05:38] LABS: ADD MAN DIFF? YES
[2018-11-14 05:45] LABS: ALANINE AMINOTRANSFERASE 13 IU/L (13-69); ALBUMIN 3.7 g/dl (3.3-4.9); ALBUMIN/GLOBULIN RATIO 1.27; ALKALINE PHOSPHATASE 210 IU/L (42-121); ANION GAP 24 (5-13); ASPARTATE AMINO TRANSFERASE 36 IU/L (15-46); BILIRUBIN,INDIRECT 0.1 mg/dl (0-1.1); BILIRUBIN,TOTAL 0.1 mg/dl (0.2-1.3); BLOOD UREA NITROGEN 88 mg/dl (7-20); CALCIUM 9.4 mg/dl (8.4-10.2); CARBON DIOXIDE 21 mmol/L (21-31); CHLORIDE 92 mmol/L (97-110); GLUCOSE 372 mg/dl (70-220); POTASSIUM 4.4 mmol/L (3.5-5.1); SODIUM 137 mmol/L (135-144); TOTAL PROTEIN 6.6 g/dl (6.1-8.1)
[2018-11-14 05:52] LABS: Estimated GFR 3 mL/min (>60)
[2018-11-14 05:56] LABS: PHOSPHORUS 4.4 mg/dl (2.5-4.9)
[2018-11-14 05:56] LABS: MAGNESIUM 2.5 mg/dl (1.7-2.5)
[2018-11-14 05:59] LABS: CREATININE 12.16 mg/dl (0.44-1.00)
[2018-11-14 06:09] LABS: LACTIC ACID 8.4 mmol/L (0.5-2.0)
[2018-11-14] MEDS: FENTAnyl (DRIP) 1000 mcg/100mL 100 ML IV (06:11)
[2018-11-14] MEDS: CALCIUM ACETATE 667 MG CAP PO ×3 (06:37→17:35)
[2018-11-14] MEDS: LANTHANUM 500 MG CHEW PO ×3 (06:37→17:35)
[2018-11-14] MEDS: SEVELAMER CARBONATE 0.8 GM PKT PO ×3 (06:37→17:35)
[2018-11-14] MEDS: SEVELAMER CARBONATE 2.4 GM PKT PO ×3 (06:37→17:35)
[2018-11-14] MEDS: NPH, HUMAN INSULIN ISOPHANE 3ML VIAL SC ×3 (06:50→22:00)
[2018-11-14] MEDS ORDERED: DEXTROSE 50% 50 ML SYRINGE IV ×2 (07:00)
[2018-11-14 07:51] LABS: ANISOCYTOSIS 1+ (0-0); BAND NEUTROPHILS #M 2.3 10^3/ul (0.0-0.6); BAND NEUTROPHILS % (M) 39 % (0-4); EOSINOPHILS % (M) 1 % (0-7); ERYTHROBLAST% (NRBC) (M) 3 % (0-0); GIANT THROMBO% (M) 8 % (0-0); LYMPHOCYTES #M 1.4 10^3/ul (0.8-2.9); LYMPHOCYTES % (M) 24 % (15-51); METAMYELOCYTES #M 0.5 10^3/ul (0.0-0.0); METAMYELOCYTES %M 10 % (0-0); MONOCYTE #M 0.5 10^3/ul (0.3-0.9); MONOCYTES % (M) 10 % (0-11); MYELOCYTES #M 0.2 10^3/ul (0.0-0.0); MYELOCYTES % (M) 5 % (0-0); PLATELET ESTIMATE NORMAL; SEG NEUT #M 0.8 10^3/ul (1.6-7.5); SEGMENTED NEUTROPHILS (M) % 11 % (39-77); SMUDGE%M 16 % (0-0)
[2018-11-14] MEDS ORDERED: LIDOCAINE 100 MG SYRINGE (07:56)
[2018-11-14] MEDS ORDERED: LIDOCAINE 100 MG SYRINGE IV (08:00)
[2018-11-14] MEDS: INSULIN HUMAN REGULAR 100 UNIT in SOD CHLORIDE 0.9% 99 ML IV ×3 (08:44→18:54)
[2018-11-14] MEDS: SERTRALINE 100 MG TAB PO (09:00)
[2018-11-14] MEDS: BUSPIRONE 5 MG TAB PO ×3 (09:00→20:38)
[2018-11-14] MEDS: LIDOCAINE 1% (MPF) 5 ML VIAL SC (09:00)
[2018-11-14] MEDS ORDERED: DOPAMINE IV ×2 (10:30→12:00)
[2018-11-14] MEDS ORDERED: NORepinephrine 32 MG in SOD CHLORIDE 0.9% 218 ML IV (10:30)
[2018-11-14] MEDS ORDERED: PHENYLEPHRINE IV ×2 (10:30→12:01)
[2018-11-14] MEDS ORDERED: SOD CHLORIDE 0.9% IV ×4 (10:30→12:01)
[2018-11-14] MEDS ORDERED: HEPARIN 1000 UNITS/ML 10 ML INJ (10:53)
[2018-11-14] MEDS: MEROPENEM 500MG/50 ML (PMX) 50 ML IVPB ×2 (11:17→20:39)
[2018-11-14] MEDS: ALBUMIN HUMAN 25% 100 ML IV ×2 (11:27→18:34)
[2018-11-14] MEDS: LIDOCAINE 100 MG SYRINGE INJ (11:52)
[2018-11-14] MEDS: PHENYLephrine 80 MG in SOD CHLORIDE 0.9% 242 ML IV ×3 (13:58→22:18)
[2018-11-14] MEDS: VASOPRESSIN 60 UNIT in SOD CHLORIDE 0.9% 57 ML IV (14:00)
[2018-11-14] MEDS: NORepinephrine 32 MG in SOD CHLORIDE 0.9% 218 ML IV (14:04)
[2018-11-14] MEDS: SOD CHLORIDE 0.9% IV (14:11)
[2018-11-14] MEDS: DOPAMINE IV (14:11)
[2018-11-14] MEDS: HYDROCORTISONE 100 MG INJ IV ×3 (14:27→22:13)
[2018-11-14] MEDS: CASPOFUNGIN 70 MG in SOD CHLORIDE 0.9% 250 ML IVPB (14:46)
[2018-11-14] MEDS: VANCOMYCIN 750 MG (PMX) 250 ML IVPB (16:15)
[2018-11-14] MEDS: DEXTROSE 50% 50 ML SYRINGE IV (21:04)
[2018-11-15] MEDS: DOPamine 800 MG in DEXTROSE 5% 230 ML IV (00:17)
[2018-11-15] MEDS: ACCU-CHEK XX ×25 (00:22→23:00)
[2018-11-15] MEDS: ALBUMIN HUMAN 25% 50 ML IV (00:55)
[2018-11-15] MEDS: SOD CHLORIDE 0.9% 500 ML IV (00:56)
[2018-11-15] MEDS: VASOPRESSIN 60 UNIT in SOD CHLORIDE 0.9% 57 ML IV ×2 (01:06→12:14)
[2018-11-15] MEDS: PHENYLephrine 80 MG in SOD CHLORIDE 0.9% 242 ML IV ×2 (02:42→06:44)
[2018-11-15] MEDS: ALBUMIN HUMAN 25% 100 ML IV (03:43)
[2018-11-15] MEDS: MIDAZOLAM (DRIP) 50 mg/50 mL 50 ML IV ×3 (05:33→18:25)
[2018-11-15 05:49] LABS: WHITE BLOOD COUNT 16.4 10^3/ul (4.8-10.8)
[2018-11-15 05:49] LABS: ABNORMAL IP MESSAGE 1; HEMATOCRIT 25.2 % (37.0-47.0); HEMOGLOBIN 8.2 g/dl (12.0-16.0); MEAN CORPUSCULAR HEMOGLOBIN 34.7 pg (29.0-33.0); MEAN CORPUSCULAR HGB CONC 32.5 g/dl (32.0-37.0); MEAN CORPUSCULAR VOLUME 106.8 fl (82.0-101.0); MEAN PLATELET VOLUME 11.4 fl (7.4-10.4); PLATELET COUNT 235 10^3/UL (140-415); RED BLOOD COUNT 2.36 10^6/ul (4.20-5.40); RED CELL DISTRIBUTION WIDTH 15.3 % (11.5-14.5)
[2018-11-15] MEDS: LEVOTHYROXINE 150 MCG TAB PO (06:00)
[2018-11-15] MEDS: PANTOPRAZOLE (EC) 40 MG TAB PO (06:00)
[2018-11-15] MEDS: HYDROCORTISONE 100 MG INJ IV ×4 (06:30→22:50)
[2018-11-15 06:32] LABS: ALANINE AMINOTRANSFERASE 19 IU/L (13-69); ALBUMIN 3.5 g/dl (3.3-4.9); ALBUMIN/GLOBULIN RATIO 1.12; ALKALINE PHOSPHATASE 331 IU/L (42-121); ANION GAP 25 (5-13); ASPARTATE AMINO TRANSFERASE 43 IU/L (15-46); BLOOD UREA NITROGEN 91 mg/dl (7-20); CALCIUM 9.9 mg/dl (8.4-10.2); CARBON DIOXIDE 18 mmol/L (21-31); CHLORIDE 97 mmol/L (97-110); GLUCOSE 170 mg/dl (70-220); POTASSIUM 5.3 mmol/L (3.5-5.1); SODIUM 140 mmol/L (135-144); TOTAL PROTEIN 6.6 g/dl (6.1-8.1)
[2018-11-15 06:41] LABS: Estimated GFR 3 mL/min (>60)
[2018-11-15] MEDS: NPH, HUMAN INSULIN ISOPHANE 3ML VIAL SC ×3 (06:41→22:52)
[2018-11-15 06:49] LABS: ANION GAP 23 (5-13); BLOOD UREA NITROGEN 89 mg/dl (7-20); CALCIUM 9.4 mg/dl (8.4-10.2); CARBON DIOXIDE 18 mmol/L (21-31); CHLORIDE 97 mmol/L (97-110); GLUCOSE 160 mg/dl (70-220); MAGNESIUM 2.5 mg/dl (1.7-2.5); PHOSPHORUS 4.7 mg/dl (2.5-4.9); SODIUM 138 mmol/L (135-144)
[2018-11-15 06:51] LABS: POSITIVE DIFF @See below
[2018-11-15 06:52] LABS: ADD MAN DIFF? YES
[2018-11-15 06:56] LABS: CREATININE 12.86 mg/dl (0.44-1.00)
[2018-11-15 07:15] LABS: CREATININE 12.61 mg/dl (0.44-1.00); Estimated GFR 3 mL/min (>60)
[2018-11-15 07:17] LABS: POTASSIUM 5.5 mmol/L (3.5-5.1)
[2018-11-15] MEDS: CALCIUM ACETATE 667 MG CAP PO ×3 (07:35→10:25)
[2018-11-15] MEDS: SEVELAMER CARBONATE 0.8 GM PKT PO ×3 (07:35→10:25)
[2018-11-15] MEDS: SEVELAMER CARBONATE 2.4 GM PKT PO ×3 (07:35→10:25)
[2018-11-15 08:01] LABS: ANISOCYTOSIS 2+ (0-0); BAND NEUTROPHILS #M 6.8 10^3/ul (0.0-0.6); BAND NEUTROPHILS % (M) 42 % (0-4); BURR CELLS 2+ (0-0); GIANT THROMBO% (M) 2 % (0-0); LYMPHOCYTES #M 0.4 10^3/ul (0.8-2.9); LYMPHOCYTES % (M) 3 % (15-51); MONOCYTE #M 0.6 10^3/ul (0.3-0.9); MONOCYTES % (M) 4 % (0-11); PLATELET ESTIMATE NORMAL; POIKILOCYTOSIS 2+ (0-0); POLYCHROMASIA 3+ (0-0); SEG NEUT #M 9.5 10^3/ul (1.6-7.5); SEGMENTED NEUTROPHILS (M) % 51 % (39-77); SMUDGE%M 2 % (0-0)
[2018-11-15] MEDS: MEROPENEM 500MG/50 ML (PMX) 50 ML IVPB ×2 (08:56→22:53)
[2018-11-15] MEDS: BUSPIRONE 5 MG TAB PO ×3 (09:00→21:00)
[2018-11-15] MEDS: SERTRALINE 100 MG TAB PO (09:00)
[2018-11-15] MEDS: LANTHANUM 500 MG CHEW PO ×3 (09:07→10:26)
[2018-11-15] MEDS: FENTAnyl (DRIP) 1000 mcg/100mL 100 ML IV (11:27)
[2018-11-15] MEDS: CASPOFUNGIN 50 MG in SOD CHLORIDE 0.9% 250 ML IVPB (14:38)
[2018-11-16] MEDS: VASOPRESSIN 60 UNIT in SOD CHLORIDE 0.9% 57 ML IV ×2 (00:23→12:30)
[2018-11-16] MEDS: ACCU-CHEK XX ×25 (00:24→23:12)
[2018-11-16] MEDS: MIDAZOLAM (DRIP) 50 mg/50 mL 50 ML IV ×2 (01:40→12:06)
[2018-11-16] MEDS: FENTAnyl (DRIP) 1000 mcg/100mL 100 ML IV ×2 (01:42→17:33)
[2018-11-16 04:33] LABS: AADO2 Arterial 88.9 mmHg (7.0-24.0); Arterial Base Excess -1.1 mmol/L (-3.0-3); Arterial Blood Gas Oxygen Sat 98.6 mmHG (95.0-98.0); Arterial COHb 0.6 % (0.0-3.0); Arterial Fraction of Oxyhgb 97.4 % (93.0-99.0); Arterial HCO3 21.8 mmol/L (22.0-26.0); Arterial MetHb 0.6 % (0.0-1.5); Arterial pCO2 29.5 mmhg (35-45); MODE VENT - AC; Site A-Line
[2018-11-16] MEDS: LEVOTHYROXINE 150 MCG TAB PO (05:13)
[2018-11-16 05:51] LABS: LACTIC ACID 1.2 mmol/L (0.5-2.0)
[2018-11-16] MEDS: PANTOPRAZOLE (EC) 40 MG TAB PO (06:00)
[2018-11-16] MEDS: HYDROCORTISONE 100 MG INJ IV ×3 (06:12→22:12)
[2018-11-16] MEDS: NPH, HUMAN INSULIN ISOPHANE 3ML VIAL SC ×3 (06:14→22:13)
[2018-11-16 06:16] LABS: CARBON DIOXIDE 23 mmol/L (21-31); CHLORIDE 99 mmol/L (97-110); POTASSIUM 4.7 mmol/L (3.5-5.1); SODIUM 140 mmol/L (135-144)
[2018-11-16 06:17] LABS: ANION GAP 18 (5-13); BLOOD UREA NITROGEN 64 mg/dl (7-20); CALCIUM 10.1 mg/dl (8.4-10.2); GLUCOSE 140 mg/dl (70-220); MAGNESIUM 2.6 mg/dl (1.7-2.5)
[2018-11-16 06:23] LABS: Estimated GFR 5 mL/min (>60)
[2018-11-16 06:24] LABS: CREATININE 8.57 mg/dl (0.44-1.00)
[2018-11-16] MEDS: PANTOPRAZOLE 40 MG INJ IV (06:26)
[2018-11-16 07:26] LABS: WHITE BLOOD COUNT 9.1 10^3/ul (4.8-10.8)
[2018-11-16 07:26] LABS: ABNORMAL IP MESSAGE 1; HEMATOCRIT 20.8 % (37.0-47.0); MEAN CORPUSCULAR HEMOGLOBIN 34.8 pg (29.0-33.0); MEAN CORPUSCULAR HGB CONC 33.2 g/dl (32.0-37.0); MEAN CORPUSCULAR VOLUME 105.1 fl (82.0-101.0); MEAN PLATELET VOLUME 11.1 fl (7.4-10.4); PLATELET COUNT 190 10^3/UL (140-415); RED BLOOD COUNT 1.98 10^6/ul (4.20-5.40); RED CELL DISTRIBUTION WIDTH 15.6 % (11.5-14.5)
[2018-11-16] MEDS: CALCIUM ACETATE 667 MG CAP PO ×3 (07:35→17:34)
[2018-11-16] MEDS: LANTHANUM 500 MG CHEW PO ×3 (07:35→17:34)
[2018-11-16] MEDS: SEVELAMER CARBONATE 0.8 GM PKT PO ×3 (07:35→17:34)
[2018-11-16] MEDS: SEVELAMER CARBONATE 2.4 GM PKT PO ×3 (07:35→17:35)
[2018-11-16 07:42] LABS: ADD MAN DIFF? YES; HEMOGLOBIN 6.9 g/dl (12.0-16.0); POSITIVE DIFF @See below
[2018-11-16] MEDS: SERTRALINE 100 MG TAB PO (08:53)
[2018-11-16] MEDS: BUSPIRONE 5 MG TAB PO ×3 (08:53→21:00)
[2018-11-16] MEDS: MEROPENEM 500MG/50 ML (PMX) 50 ML IVPB ×2 (08:58→22:12)
[2018-11-16] MEDS: EPOETIN ALFA-EPBX (ESRD) 10,000 UNIT/ML VIAL SC (09:00)
[2018-11-16] MEDS: CYANOCOBALAMIN 1000 MCG INJ SC (09:01)
[2018-11-16 10:24] LABS: ANISOCYTOSIS 1+ (0-0); BAND NEUTROPHILS #M 0.9 10^3/ul (0.0-0.6); BAND NEUTROPHILS % (M) 10 % (0-4); BASOPHILS % (M) 1 % (0-2); HYPOCHROMASIA 1+ (0-0); LYMPHOCYTES #M 0.4 10^3/ul (0.8-2.9); LYMPHOCYTES % (M) 5 % (15-51); MONOCYTE #M 0.5 10^3/ul (0.3-0.9); MONOCYTES % (M) 6 % (0-11); PLATELET ESTIMATE NORMAL; POIKILOCYTOSIS 1+ (0-0); POLYCHROMASIA 3+ (0-0); SEG NEUT #M 7.2 10^3/ul (1.6-7.5); SEGMENTED NEUTROPHILS (M) % 78 % (39-77); SMUDGE%M 1 % (0-0)
[2018-11-16] MEDS: CASPOFUNGIN 50 MG in SOD CHLORIDE 0.9% 250 ML IVPB (13:19)
[2018-11-16] MEDS ORDERED: NPH, HUMAN INSULIN ISOPHANE 3ML VIAL SC (14:00)
[2018-11-16] MEDS ORDERED: HYDROCORTISONE 100 MG INJ IV ×2 (14:00)
[2018-11-16] MEDS: DEXTROSE 50% 50 ML SYRINGE IV (17:29)
[2018-11-16] MEDS: DEXTROSE 10% 1,000 ML IV (17:54)
[2018-11-16] MEDS: NORepinephrine 32 MG in SOD CHLORIDE 0.9% 218 ML IV (23:29)
[2018-11-17] MEDS: VASOPRESSIN 60 UNIT in SOD CHLORIDE 0.9% 57 ML IV ×2 (00:16→12:28)
[2018-11-17] MEDS: ACCU-CHEK XX ×24 (00:16→23:00)
[2018-11-17] MEDS: MIDAZOLAM (DRIP) 50 mg/50 mL 50 ML IV ×2 (02:08→12:25)
[2018-11-17] MEDS: FENTAnyl (DRIP) 1000 mcg/100mL 100 ML IV ×2 (02:54→20:26)
[2018-11-17 04:42] LABS: AADO2 Arterial 62.8 mmHg (7.0-24.0); Arterial Base Excess -4.1 mmol/L (-3.0-3); Arterial Blood Gas Oxygen Sat 97.6 mmHG (95.0-98.0); Arterial COHb 0.9 % (0.0-3.0); Arterial Fraction of Oxyhgb 96.3 % (93.0-99.0); Arterial HCO3 20.7 mmol/L (22.0-26.0); Arterial MetHb 0.4 % (0.0-1.5); Arterial pCO2 36.3 mmhg (35-45); MODE VENT - AC; Site A-Line
[2018-11-17 04:52] LABS: ABNORMAL IP MESSAGE 1; HEMATOCRIT 20.4 % (37.0-47.0); MEAN CORPUSCULAR HEMOGLOBIN 34.2 pg (29.0-33.0); MEAN CORPUSCULAR HGB CONC 31.9 g/dl (32.0-37.0); MEAN CORPUSCULAR VOLUME 107.4 fl (82.0-101.0); MEAN PLATELET VOLUME 11.2 fl (7.4-10.4); NUCLEATED RED BLOOD CELLS% 0.2 /100WBC (0.0-0.0); PLATELET COUNT 165 10^3/UL (140-415); RED CELL DISTRIBUTION WIDTH 15.8 % (11.5-14.5)
[2018-11-17 04:52] LABS: WHITE BLOOD COUNT 8.1 10^3/ul (4.8-10.8)
[2018-11-17 05:02] LABS: POSITIVE DIFF @See below
[2018-11-17 05:04] LABS: ADD MAN DIFF? YES; HEMOGLOBIN 6.5 g/dl (12.0-16.0)
[2018-11-17 05:05] LABS: LACTIC ACID 1.4 mmol/L (0.5-2.0)
[2018-11-17 05:22] LABS: ANION GAP 17 (5-13); BLOOD UREA NITROGEN 81 mg/dl (7-20); CALCIUM 9.8 mg/dl (8.4-10.2); CARBON DIOXIDE 22 mmol/L (21-31); CHLORIDE 102 mmol/L (97-110); GLUCOSE 197 mg/dl (70-220); MAGNESIUM 2.8 mg/dl (1.7-2.5); POTASSIUM 4.9 mmol/L (3.5-5.1); SODIUM 141 mmol/L (135-144)
[2018-11-17] MEDS: PANTOPRAZOLE 40 MG INJ IV (05:45)
[2018-11-17] MEDS: LEVOTHYROXINE 100 MCG VIAL IV (05:46)
[2018-11-17 06:04] LABS: Estimated GFR 5 mL/min (>60)
[2018-11-17 06:06] LABS: CREATININE 9.28 mg/dl (0.44-1.00)
[2018-11-17 07:04] LABS: ANISOCYTOSIS 2+ (0-0); BAND NEUTROPHILS #M 0.1 10^3/ul (0.0-0.6); BAND NEUTROPHILS % (M) 2 % (0-4); EOSINOPHILS % (M) 2 % (0-7); HYPOCHROMASIA 1+ (0-0); LYMPHOCYTES #M 0.7 10^3/ul (0.8-2.9); LYMPHOCYTES % (M) 9 % (15-51); MONOCYTE #M 0.6 10^3/ul (0.3-0.9); MONOCYTES % (M) 8 % (0-11); PLATELET ESTIMATE NORMAL; POLYCHROMASIA 3+ (0-0); SEG NEUT #M 6.4 10^3/ul (1.6-7.5); SEGMENTED NEUTROPHILS (M) % 79 % (39-77); SMUDGE%M 5 % (0-0)
[2018-11-17] MEDS: LANTHANUM 500 MG CHEW PO ×3 (07:35→16:38)
[2018-11-17] MEDS: SEVELAMER CARBONATE 2.4 GM PKT PO ×3 (07:35→16:39)
[2018-11-17] MEDS: SEVELAMER CARBONATE 0.8 GM PKT PO ×3 (07:35→16:38)
[2018-11-17] MEDS: CALCIUM ACETATE 667 MG CAP PO ×3 (07:35→16:38)
[2018-11-17] MEDS: SERTRALINE 100 MG TAB PO (09:00)
[2018-11-17] MEDS: BUSPIRONE 5 MG TAB PO ×3 (09:00→21:17)
[2018-11-17] MEDS: HYDROCORTISONE 100 MG INJ IV ×2 (09:24→21:17)
[2018-11-17] MEDS: NPH, HUMAN INSULIN ISOPHANE 3ML VIAL SC ×2 (09:29→21:25)
[2018-11-17] MEDS: MEROPENEM 500MG/50 ML (PMX) 50 ML IVPB ×2 (09:30→21:17)
[2018-11-17] MEDS: DEXTROSE 5% 1,000 ML IV (09:33)
[2018-11-17 11:10] LABS: IRON 119 ug/dl (35-150)
[2018-11-17 11:20] LABS: % IRON SATURATION 88 % SAT (22-52); TOTAL IRON BINDING CAPACITY 135 ug/dl (241-421)
[2018-11-17] MEDS: HEPARIN 1000 UNITS/ML 10 ML INJ CATHETER (13:07)
[2018-11-17] MEDS: CASPOFUNGIN 50 MG in SOD CHLORIDE 0.9% 250 ML IVPB (13:09)
[2018-11-17] MEDS: EPOETIN ALFA-EPBX (ESRD) 10,000 UNIT/ML VIAL SC (16:40)
[2018-11-18] MEDS: ACCU-CHEK XX ×24 (01:00→23:10)
[2018-11-18] MEDS: MIDAZOLAM (DRIP) 50 mg/50 mL 50 ML IV ×2 (02:11→19:52)
[2018-11-18] MEDS: INSULIN HUMAN REGULAR 100 UNIT in SOD CHLORIDE 0.9% 99 ML IV (05:08)
[2018-11-18 05:13] LABS: WHITE BLOOD COUNT 9.4 10^3/ul (4.8-10.8)
[2018-11-18 05:13] LABS: ABNORMAL IP MESSAGE 1; HEMATOCRIT 20.5 % (37.0-47.0); MEAN CORPUSCULAR HGB CONC 31.2 g/dl (32.0-37.0); MEAN PLATELET VOLUME 11.7 fl (7.4-10.4); NUCLEATED RED BLOOD CELLS% 0.3 /100WBC (0.0-0.0); PLATELET COUNT 149 10^3/UL (140-415); RED BLOOD COUNT 1.88 10^6/ul (4.20-5.40); RED CELL DISTRIBUTION WIDTH 15.5 % (11.5-14.5)
[2018-11-18 05:16] LABS: ADD MAN DIFF? YES; HEMOGLOBIN 6.4 g/dl (12.0-16.0); POSITIVE DIFF @See below
[2018-11-18 05:44] LABS: ANION GAP 13 (5-13); BLOOD UREA NITROGEN 55 mg/dl (7-20); CALCIUM 9.7 mg/dl (8.4-10.2); CARBON DIOXIDE 22 mmol/L (21-31); CHLORIDE 104 mmol/L (97-110); CREATININE 6.81 mg/dl (0.44-1.00); Estimated GFR 7 mL/min (>60); GLUCOSE 205 mg/dl (70-220); MAGNESIUM 2.5 mg/dl (1.7-2.5); PHOSPHORUS 4.4 mg/dl (2.5-4.9); POTASSIUM 4.5 mmol/L (3.5-5.1); SODIUM 139 mmol/L (135-144)
[2018-11-18] MEDS: PANTOPRAZOLE 40 MG INJ IV (05:56)
[2018-11-18] MEDS: LEVOTHYROXINE 100 MCG VIAL IV (05:57)
[2018-11-18] MEDS: SEVELAMER CARBONATE 0.8 GM PKT PO ×3 (07:35→17:18)
[2018-11-18] MEDS: CALCIUM ACETATE 667 MG CAP PO ×3 (07:35→17:18)
[2018-11-18] MEDS: SEVELAMER CARBONATE 2.4 GM PKT PO ×3 (07:35→17:18)
[2018-11-18] MEDS: LANTHANUM 500 MG CHEW PO ×3 (07:35→17:18)
[2018-11-18] MEDS: VASOPRESSIN 60 UNIT in SOD CHLORIDE 0.9% 57 ML IV ×2 (07:46→12:30)
[2018-11-18] MEDS: SERTRALINE 100 MG TAB PO (08:06)
[2018-11-18] MEDS: BUSPIRONE 5 MG TAB PO ×3 (08:06→21:00)
[2018-11-18] MEDS: MEROPENEM 500MG/50 ML (PMX) 50 ML IVPB ×2 (08:57→21:12)
[2018-11-18] MEDS: DEXTROSE 5% 1,000 ML IV (08:57)
[2018-11-18] MEDS: HYDROCORTISONE 100 MG INJ IV ×2 (08:57→21:12)
[2018-11-18] MEDS: NPH, HUMAN INSULIN ISOPHANE 3ML VIAL SC ×2 (08:59→21:21)
[2018-11-18 10:59] LABS: ANISOCYTOSIS 2+ (0-0); BAND NEUTROPHILS #M 0.2 10^3/ul (0.0-0.6); BAND NEUTROPHILS % (M) 3 % (0-4); EOSINOPHILS % (M) 2 % (0-7); GIANT THROMBO% (M) 5 % (0-0); LYMPHOCYTES #M 0.3 10^3/ul (0.8-2.9); LYMPHOCYTES % (M) 4 % (15-51); METAMYELOCYTES #M 0.1 10^3/ul (0.0-0.0); METAMYELOCYTES %M 2 % (0-0); MONOCYTE #M 0.7 10^3/ul (0.3-0.9); MONOCYTES % (M) 8 % (0-11); PLATELET ESTIMATE NORMAL; POLYCHROMASIA 3+ (0-0); REACTIVE LYMPHOCYTES% (M) 1 % (0-0); SEG NEUT #M 7.5 10^3/ul (1.6-7.5); SEGMENTED NEUTROPHILS (M) % 80 % (39-77); SMUDGE%M 4 % (0-0)
[2018-11-18] MEDS: CASPOFUNGIN 50 MG in SOD CHLORIDE 0.9% 250 ML IVPB ×2 (14:04→15:06)
[2018-11-18] MEDS: FENTAnyl (DRIP) 1000 mcg/100mL 100 ML IV (19:27)
[2018-11-19] MEDS: VASOPRESSIN 60 UNIT in SOD CHLORIDE 0.9% 57 ML IV ×2 (00:30→12:30)
[2018-11-19] MEDS: ACCU-CHEK XX ×23 (01:00→23:25)
[2018-11-19] MEDS: MIDAZOLAM (DRIP) 50 mg/50 mL 50 ML IV ×3 (02:13→21:27)
[2018-11-19] MEDS: LEVOTHYROXINE 100 MCG VIAL IV (05:27)
[2018-11-19] MEDS: PANTOPRAZOLE 40 MG INJ IV (05:28)
[2018-11-19 05:33] LABS: ABNORMAL IP MESSAGE 1; HEMATOCRIT 21.2 % (37.0-47.0); MEAN CORPUSCULAR HGB CONC 32.1 g/dl (32.0-37.0); NUCLEATED RED BLOOD CELLS% 0.9 /100WBC (0.0-0.0); PLATELET COUNT 194 10^3/UL (140-415); RED CELL DISTRIBUTION WIDTH 15.2 % (11.5-14.5)
[2018-11-19 05:33] LABS: WHITE BLOOD COUNT 12.2 10^3/ul (4.8-10.8)
[2018-11-19 05:53] LABS: ADD MAN DIFF? YES; POSITIVE DIFF @See below
[2018-11-19 05:54] LABS: HEMOGLOBIN 6.8 g/dl (12.0-16.0)
[2018-11-19 05:57] LABS: VANCOMYCIN,RANDOM 11.4 ug/ml
[2018-11-19 05:58] LABS: ANION GAP 14 (5-13); BLOOD UREA NITROGEN 69 mg/dl (7-20); CALCIUM 9.7 mg/dl (8.4-10.2); CARBON DIOXIDE 22 mmol/L (21-31); CHLORIDE 102 mmol/L (97-110); GLUCOSE 104 mg/dl (70-220); MAGNESIUM 2.6 mg/dl (1.7-2.5); PHOSPHORUS 4.8 mg/dl (2.5-4.9); POTASSIUM 4.1 mmol/L (3.5-5.1); SODIUM 138 mmol/L (135-144)
[2018-11-19 06:04] LABS: Estimated GFR 6 mL/min (>60)
[2018-11-19 06:46] LABS: CREATININE 7.09 mg/dl (0.44-1.00)
[2018-11-19] MEDS: SEVELAMER CARBONATE 2.4 GM PKT PO ×3 (07:35→17:35)
[2018-11-19] MEDS: SEVELAMER CARBONATE 0.8 GM PKT PO ×3 (07:35→17:35)
[2018-11-19] MEDS: CALCIUM ACETATE 667 MG CAP PO ×3 (07:35→17:35)
[2018-11-19] MEDS: LANTHANUM 500 MG CHEW PO ×3 (07:35→17:35)
[2018-11-19 07:45] LABS: ANISOCYTOSIS 2+ (0-0); BAND NEUTROPHILS #M 1.2 10^3/ul (0.0-0.6); BAND NEUTROPHILS % (M) 10 % (0-4); GIANT THROMBO% (M) 1 % (0-0); HYPOCHROMASIA 2+ (0-0); LYMPHOCYTES % (M) 9 % (15-51); METAMYELOCYTES #M 0.1 10^3/ul (0.0-0.0); METAMYELOCYTES %M 1 % (0-0); MONOCYTE #M 0.8 10^3/ul (0.3-0.9); MONOCYTES % (M) 7 % (0-11); MYELOCYTES #M 0.2 10^3/ul (0.0-0.0); MYELOCYTES % (M) 2 % (0-0); PLATELET ESTIMATE NORMAL; POLYCHROMASIA 2+ (0-0); PROMYELOCYTES #M 0.1 10^3/ul (0-0); PROMYELOCYTES % (M) 1 % (0-0); REACTIVE LYMPHOCYTES #M 0.1 10^3/ul (0.0-0.0); REACTIVE LYMPHOCYTES% (M) 1 % (0-0); SEG NEUT #M 8.6 10^3/ul (1.6-7.5); SEGMENTED NEUTROPHILS (M) % 69 % (39-77); STOMATOCYTES 1+ (0-0); TOXIC GRANULATION 1+ (0-0)
[2018-11-19] MEDS: FENTAnyl (DRIP) 1000 mcg/100mL 100 ML IV ×2 (07:57→21:30)
[2018-11-19] MEDS: SERTRALINE 100 MG TAB PO (09:00)
[2018-11-19] MEDS: BUSPIRONE 5 MG TAB PO ×4 (09:00→20:32)
[2018-11-19] MEDS: DEXTROSE 5% 1,000 ML IV (09:53)
[2018-11-19] MEDS: HYDROCORTISONE 100 MG INJ IV ×2 (09:53→20:21)
[2018-11-19] MEDS: MEROPENEM 500MG/50 ML (PMX) 50 ML IVPB ×2 (09:53→20:20)
[2018-11-19] MEDS: HEPARIN 1000 UNITS/ML 10 ML INJ CATHETER (11:44)
[2018-11-19] MEDS: NPH, HUMAN INSULIN ISOPHANE 3ML VIAL SC ×2 (12:05→20:25)
[2018-11-19] MEDS: DEXTROSE 50% 50 ML SYRINGE IV (12:08)
[2018-11-19] MEDS: HYDROmorphONE 0.5 MG/0.5 ML SYG IV ×2 (13:33→20:27)
[2018-11-19] MEDS: CASPOFUNGIN 50 MG in SOD CHLORIDE 0.9% 250 ML IVPB (16:10)
[2018-11-19] MEDS: VANCOMYCIN 750 MG (PMX) 250 ML IVPB (18:09)
[2018-11-19] MEDS: EPOETIN ALFA-EPBX (ESRD) 10,000 UNIT/ML VIAL SC (18:18)
[2018-11-20] MEDS: VASOPRESSIN 60 UNIT in SOD CHLORIDE 0.9% 57 ML IV ×2 (00:30→12:30)
[2018-11-20] MEDS: ACCU-CHEK XX ×24 (00:32→23:00)
[2018-11-20] MEDS: MIDAZOLAM (DRIP) 50 mg/50 mL 50 ML IV ×4 (00:33→20:29)
[2018-11-20 05:15] LABS: WHITE BLOOD COUNT 12.7 10^3/ul (4.8-10.8)
[2018-11-20 05:15] LABS: ABNORMAL IP MESSAGE 1; HEMATOCRIT 21.6 % (37.0-47.0); MEAN CORPUSCULAR HEMOGLOBIN 33.8 pg (29.0-33.0); MEAN CORPUSCULAR HGB CONC 31.5 g/dl (32.0-37.0); MEAN CORPUSCULAR VOLUME 107.5 fl (82.0-101.0); MEAN PLATELET VOLUME 11.5 fl (7.4-10.4); NUCLEATED RED BLOOD CELLS% 1.6 /100WBC (0.0-0.0); PLATELET COUNT 241 10^3/UL (140-415); RED BLOOD COUNT 2.01 10^6/ul (4.20-5.40); RED CELL DISTRIBUTION WIDTH 15.2 % (11.5-14.5)
[2018-11-20] MEDS: PANTOPRAZOLE 40 MG INJ IV (05:52)
[2018-11-20 05:55] LABS: ANION GAP 11 (5-13); BLOOD UREA NITROGEN 41 mg/dl (7-20); CALCIUM 9.4 mg/dl (8.4-10.2); CARBON DIOXIDE 24 mmol/L (21-31); CHLORIDE 101 mmol/L (97-110); CREATININE 5.31 mg/dl (0.44-1.00); Estimated GFR 9 mL/min (>60); GLUCOSE 93 mg/dl (70-220); MAGNESIUM 2.1 mg/dl (1.7-2.5); PHOSPHORUS 3.9 mg/dl (2.5-4.9); POTASSIUM 3.5 mmol/L (3.5-5.1); SODIUM 136 mmol/L (135-144)
[2018-11-20 06:07] LABS: HEMOGLOBIN 6.8 g/dl (12.0-16.0); POSITIVE DIFF @See below
[2018-11-20 06:08] LABS: ADD MAN DIFF? YES
[2018-11-20] MEDS: LEVOTHYROXINE 100 MCG VIAL IV (06:21)
[2018-11-20 07:19] LABS: IRON 34 ug/dl (35-150)
[2018-11-20 07:29] LABS: % IRON SATURATION 20 % SAT (22-52); TOTAL IRON BINDING CAPACITY 170 ug/dl (241-421)
[2018-11-20] MEDS: SEVELAMER CARBONATE 0.8 GM PKT PO ×3 (08:22→18:34)
[2018-11-20] MEDS: BUSPIRONE 5 MG TAB PO ×4 (08:22→21:00)
[2018-11-20] MEDS: LANTHANUM 500 MG CHEW PO ×3 (08:22→18:34)
[2018-11-20] MEDS: SEVELAMER CARBONATE 2.4 GM PKT PO ×3 (08:22→18:34)
[2018-11-20] MEDS: SERTRALINE 100 MG TAB PO (08:22)
[2018-11-20] MEDS: CALCIUM ACETATE 667 MG CAP PO ×3 (08:23→18:34)
[2018-11-20] MEDS: MEROPENEM 500MG/50 ML (PMX) 50 ML IVPB ×2 (08:23→20:48)
[2018-11-20] MEDS: DEXTROSE 5% 1,000 ML IV (08:24)
[2018-11-20] MEDS: EPOETIN ALFA-EPBX (ESRD) 3,000 UNIT/ML VIAL SC (09:00)
[2018-11-20] MEDS: FENTAnyl (DRIP) 1000 mcg/100mL 100 ML IV ×2 (11:06→18:33)
[2018-11-20] MEDS: HYDROmorphONE 0.5 MG/0.5 ML SYG IV (11:10)
[2018-11-20] MEDS: ACETAMINOPHEN 650MG/20.3ML CUP NGT ×2 (12:05→18:34)
[2018-11-20] MEDS: SOD FERRIC GLUC COMPLX 125 MG in SOD CHLORIDE 0.9% 100 ML IVPB (12:06)
[2018-11-20] MEDS ORDERED: GABAPENTIN (50 MG/ML PO SYG) GTB (14:00)
[2018-11-20] MEDS: GABAPENTIN (50 MG/ML PO SYG) GTB ×2 (15:57→22:20)
[2018-11-20] MEDS: CASPOFUNGIN 50 MG in SOD CHLORIDE 0.9% 250 ML IVPB (15:57)
[2018-11-21] MEDS: VASOPRESSIN 60 UNIT in SOD CHLORIDE 0.9% 57 ML IV ×3 (00:30→22:58)
[2018-11-21] MEDS: INSULIN HUMAN REGULAR 100 UNIT in SOD CHLORIDE 0.9% 99 ML IV (00:55)
[2018-11-21] MEDS: ACETAMINOPHEN 650MG/20.3ML CUP NGT ×5 (00:56→23:05)
[2018-11-21] MEDS: ACCU-CHEK XX ×22 (01:00→20:30)
[2018-11-21] MEDS: FENTAnyl (DRIP) 1000 mcg/100mL 100 ML IV ×3 (02:35→22:51)
[2018-11-21] MEDS: MIDAZOLAM (DRIP) 50 mg/50 mL 50 ML IV ×4 (04:17→22:50)
[2018-11-21] MEDS: HYDROmorphONE 0.5 MG/0.5 ML SYG IV ×2 (05:00→11:07)
[2018-11-21 05:14] LABS: ABNORMAL IP MESSAGE 1; HEMATOCRIT 22.5 % (37.0-47.0); HEMOGLOBIN 7.3 g/dl (12.0-16.0); MEAN CORPUSCULAR HEMOGLOBIN 34.8 pg (29.0-33.0); MEAN CORPUSCULAR HGB CONC 32.4 g/dl (32.0-37.0); MEAN CORPUSCULAR VOLUME 107.1 fl (82.0-101.0); MEAN PLATELET VOLUME 11.4 fl (7.4-10.4); NUCLEATED RED BLOOD CELLS% 1.2 /100WBC (0.0-0.0); PLATELET COUNT 293 10^3/UL (140-415); RED CELL DISTRIBUTION WIDTH 15.9 % (11.5-14.5)
[2018-11-21 05:23] LABS: ADD MAN DIFF? YES; POSITIVE DIFF @See below
[2018-11-21 05:43] LABS: ANION GAP 12 (5-13); BLOOD UREA NITROGEN 43 mg/dl (7-20); CARBON DIOXIDE 21 mmol/L (21-31); CHLORIDE 98 mmol/L (97-110); CREATININE 6.23 mg/dl (0.44-1.00); Estimated GFR 7 mL/min (>60); GLUCOSE 137 mg/dl (70-220); MAGNESIUM 2.1 mg/dl (1.7-2.5); PHOSPHORUS 5.3 mg/dl (2.5-4.9); POTASSIUM 3.3 mmol/L (3.5-5.1); SODIUM 131 mmol/L (135-144)
[2018-11-21] MEDS: PANTOPRAZOLE 40 MG INJ IV (06:28)
[2018-11-21] MEDS: LEVOTHYROXINE 100 MCG VIAL IV (06:28)
[2018-11-21] MEDS: GABAPENTIN (50 MG/ML PO SYG) GTB ×3 (06:29→20:24)
[2018-11-21 07:20] LABS: ANISOCYTOSIS 2+ (0-0); BAND NEUTROPHILS #M 1.7 10^3/ul (0.0-0.6); BAND NEUTROPHILS % (M) 11 % (0-4); EOSINOPHILS % (M) 3 % (0-7); GIANT THROMBO% (M) 6 % (0-0); HYPOCHROMASIA 1+ (0-0); LYMPHOCYTES #M 0.4 10^3/ul (0.8-2.9); LYMPHOCYTES % (M) 3 % (15-51); METAMYELOCYTES #M 0.3 10^3/ul (0.0-0.0); METAMYELOCYTES %M 2 % (0-0); MONOCYTE #M 0.4 10^3/ul (0.3-0.9); MONOCYTES % (M) 3 % (0-11); MYELOCYTES #M 0.1 10^3/ul (0.0-0.0); MYELOCYTES % (M) 1 % (0-0); PLATELET ESTIMATE NORMAL; POLYCHROMASIA 2+ (0-0); PROMYELOCYTES #M 0.1 10^3/ul (0-0); PROMYELOCYTES % (M) 1 % (0-0); SEG NEUT #M 12.4 10^3/ul (1.6-7.5); SEGMENTED NEUTROPHILS (M) % 76 % (39-77); SMUDGE%M 4 % (0-0)
[2018-11-21] MEDS: CALCIUM ACETATE 667 MG CAP PO ×3 (07:35→18:15)
[2018-11-21] MEDS: SEVELAMER CARBONATE 0.8 GM PKT PO ×3 (07:35→18:15)
[2018-11-21] MEDS: LANTHANUM 500 MG CHEW PO ×3 (07:35→22:49)
[2018-11-21] MEDS: SEVELAMER CARBONATE 2.4 GM PKT PO ×3 (07:35→18:15)
[2018-11-21] MEDS: BUSPIRONE 5 MG TAB PO ×3 (07:43→20:24)
[2018-11-21] MEDS: SERTRALINE 100 MG TAB PO (07:44)
[2018-11-21] MEDS: MEROPENEM 500MG/50 ML (PMX) 50 ML IVPB ×2 (08:34→20:24)
[2018-11-21] MEDS: POTASSIUM CHLORIDE 20 MEQ POWDER FOR ORAL SOLN GTB (08:35)
[2018-11-21] MEDS: ALTEPLASE (CATHFLO) 2 MG INJ CATHETER ×2 (11:21→11:22)
[2018-11-21] MEDS: SOD FERRIC GLUC COMPLX 125 MG in SOD CHLORIDE 0.9% 100 ML IVPB (12:39)
[2018-11-21] MEDS: CASPOFUNGIN 50 MG in SOD CHLORIDE 0.9% 250 ML IVPB (13:20)
[2018-11-21] MEDS: METOCLOPRAMIDE 10 MG INJ IV (18:22)
[2018-11-21] MEDS: EPOETIN ALFA-EPBX (ESRD) 4,000 UNIT/ML VIAL SC (18:24)
[2018-11-22] MEDS: INSULIN ASPART [NOVOLOG] 3 ML PEN SC ×2 (00:46→05:46)
[2018-11-22] MEDS: METOCLOPRAMIDE 10 MG INJ IV ×3 (05:16→20:17)
[2018-11-22] MEDS: MIDAZOLAM (DRIP) 50 mg/50 mL 50 ML IV ×2 (05:16→16:51)
[2018-11-22] MEDS: PANTOPRAZOLE 40 MG INJ IV (05:16)
[2018-11-22] MEDS: LEVOTHYROXINE 100 MCG VIAL IV (05:16)
[2018-11-22] MEDS: ACETAMINOPHEN 650MG/20.3ML CUP NGT ×4 (05:36→23:26)
[2018-11-22] MEDS: GABAPENTIN (50 MG/ML PO SYG) GTB ×3 (05:36→20:18)
[2018-11-22 05:38] LABS: ABNORMAL IP MESSAGE 1; HEMOGLOBIN 7.4 g/dl (12.0-16.0); MEAN CORPUSCULAR HEMOGLOBIN 34.3 pg (29.0-33.0); MEAN CORPUSCULAR HGB CONC 30.8 g/dl (32.0-37.0); MEAN CORPUSCULAR VOLUME 111.1 fl (82.0-101.0); MEAN PLATELET VOLUME 11.1 fl (7.4-10.4); NUCLEATED RED BLOOD CELLS% 0.7 /100WBC (0.0-0.0); PLATELET COUNT 328 10^3/UL (140-415); RED BLOOD COUNT 2.16 10^6/ul (4.20-5.40); RED CELL DISTRIBUTION WIDTH 16.1 % (11.5-14.5)
[2018-11-22 05:38] LABS: WHITE BLOOD COUNT 15.8 10^3/ul (4.8-10.8)
[2018-11-22 05:51] LABS: POSITIVE DIFF @See below
[2018-11-22 05:52] LABS: ADD MAN DIFF? YES
[2018-11-22 06:07] LABS: ANION GAP 14 (5-13); BLOOD UREA NITROGEN 41 mg/dl (7-20); CALCIUM 9.3 mg/dl (8.4-10.2); CARBON DIOXIDE 22 mmol/L (21-31); CHLORIDE 98 mmol/L (97-110); CREATININE 6.83 mg/dl (0.44-1.00); Estimated GFR 7 mL/min (>60); GLUCOSE 142 mg/dl (70-220); MAGNESIUM 2.2 mg/dl (1.7-2.5); POTASSIUM 4.2 mmol/L (3.5-5.1); SODIUM 134 mmol/L (135-144)
[2018-11-22] MEDS: ACCU-CHEK XX ×17 (07:30→23:29)
[2018-11-22] MEDS: LANTHANUM 500 MG CHEW PO ×3 (07:35→17:11)
[2018-11-22] MEDS: SEVELAMER CARBONATE 2.4 GM PKT PO ×3 (07:35→17:11)
[2018-11-22] MEDS: SEVELAMER CARBONATE 0.8 GM PKT PO ×3 (07:35→17:11)
[2018-11-22] MEDS: CALCIUM ACETATE 667 MG CAP PO ×3 (07:35→17:11)
[2018-11-22] MEDS: DEXTROSE 5% 1,000 ML IV (08:27)
[2018-11-22] MEDS: SERTRALINE 100 MG TAB PO (08:28)
[2018-11-22] MEDS: BUSPIRONE 5 MG TAB PO ×3 (08:28→20:18)
[2018-11-22] MEDS: MEROPENEM 500MG/50 ML (PMX) 50 ML IVPB ×2 (08:40→20:18)
[2018-11-22] MEDS: FENTAnyl (DRIP) 1000 mcg/100mL 100 ML IV ×2 (08:44→19:49)
[2018-11-22] MEDS: INSULIN HUMAN REGULAR 100 UNIT in SOD CHLORIDE 0.9% 99 ML IV (09:33)
[2018-11-22 09:54] LABS: ANISOCYTOSIS 2+ (0-0); BAND NEUTROPHILS #M 0.7 10^3/ul (0.0-0.6); BAND NEUTROPHILS % (M) 5 % (0-4); BURR CELLS 1+ (0-0); EOSINOPHILS % (M) 4 % (0-7); ERYTHROBLAST% (NRBC) (M) 1 % (0-0); LYMPHOCYTES #M 1.1 10^3/ul (0.8-2.9); LYMPHOCYTES % (M) 7 % (15-51); METAMYELOCYTES #M 0.1 10^3/ul (0.0-0.0); METAMYELOCYTES %M 1 % (0-0); MONOCYTE #M 0.7 10^3/ul (0.3-0.9); MONOCYTES % (M) 5 % (0-11); PLATELET ESTIMATE NORMAL; PLATELET MORPHOLOGY COMMENT @See below; POLYCHROMASIA 2+ (0-0); SEG NEUT #M 12.4 10^3/ul (1.6-7.5); SEGMENTED NEUTROPHILS (M) % 78 % (39-77); SMUDGE%M 4 % (0-0); TOXIC GRANULATION 1+ (0-0)
[2018-11-22] MEDS: VASOPRESSIN 60 UNIT in SOD CHLORIDE 0.9% 57 ML IV (11:38)
[2018-11-22] MEDS ORDERED: DEXMEDETOMIDINE HCL 200 MCG in SOD CHLORIDE 0.9% 48 ML IV (12:30)
[2018-11-22] MEDS: HEPARIN 1000 UNITS/ML 10 ML INJ CATHETER (13:26)
[2018-11-22] MEDS: SOD FERRIC GLUC COMPLX 125 MG in SOD CHLORIDE 0.9% 100 ML IVPB (13:49)
[2018-11-22] MEDS: CASPOFUNGIN 50 MG in SOD CHLORIDE 0.9% 250 ML IVPB (13:50)
[2018-11-22] MEDS: DEXMEDETOMIDINE HCL 200 MCG in SOD CHLORIDE 0.9% 48 ML IV ×3 (14:08→23:02)
[2018-11-23] MEDS: ACCU-CHEK XX ×24 (00:36→23:30)
[2018-11-23] MEDS: NORepinephrine 32 MG in SOD CHLORIDE 0.9% 218 ML IV (03:56)
[2018-11-23] MEDS: DEXMEDETOMIDINE HCL 200 MCG in SOD CHLORIDE 0.9% 48 ML IV ×4 (04:29→20:41)
[2018-11-23 05:27] LABS: ADD MAN DIFF? NO
[2018-11-23 05:32] LABS: WHITE BLOOD COUNT 13.3 10^3/ul (4.8-10.8)
[2018-11-23 05:32] LABS: ABNORMAL IP MESSAGE 1; BASOPHIL # 0.1 10^3/ul (0.0-0.1); BASOPHILS % 0.4 % (0.0-2.0); EOSINOPHILS # 0.5 10^3/ul (0.0-0.5); EOSINOPHILS % 3.8 % (0.0-7.0); HEMATOCRIT 21.8 % (37.0-47.0); LYMPHOCYTES # 0.7 10^3/ul (0.8-2.9); LYMPHOCYTES % 5.3 % (15.0-51.0); MEAN CORPUSCULAR HEMOGLOBIN 33.9 pg (29.0-33.0); MEAN CORPUSCULAR HGB CONC 29.8 g/dl (32.0-37.0); MEAN CORPUSCULAR VOLUME 113.5 fl (82.0-101.0); MEAN PLATELET VOLUME 11.2 fl (7.4-10.4); MONOCYTE # 1.5 10^3/ul (0.3-0.9); MONOCYTES % 10.9 % (0.0-11.0); NEUTROPHIL # 10.2 10^3/ul (1.6-7.5); NEUTROPHILS % 76.7 % (39.0-77.0); NUCLEATED RED BLOOD CELLS # 0.1 10^3/ul (0.0-0.0); NUCLEATED RED BLOOD CELLS% 0.4 /100WBC (0.0-0.0); PLATELET COUNT 289 10^3/UL (140-415); RED BLOOD COUNT 1.92 10^6/ul (4.20-5.40); RED CELL DISTRIBUTION WIDTH 16.9 % (11.5-14.5)
[2018-11-23] MEDS: DEXTROSE 50% 50 ML SYRINGE IV (05:35)
[2018-11-23] MEDS: PANTOPRAZOLE 40 MG INJ IV (05:41)
[2018-11-23] MEDS: METOCLOPRAMIDE 10 MG INJ IV ×3 (05:42→20:15)
[2018-11-23] MEDS: ACETAMINOPHEN 650MG/20.3ML CUP NGT ×4 (05:42→17:28)
[2018-11-23] MEDS: LEVOTHYROXINE 100 MCG VIAL IV (05:42)
[2018-11-23] MEDS: GABAPENTIN (50 MG/ML PO SYG) GTB ×4 (05:44→20:38)
[2018-11-23 05:52] LABS: LACTIC ACID 1.5 mmol/L (0.5-2.0)
[2018-11-23 05:54] LABS: ANION GAP 12 (5-13); BLOOD UREA NITROGEN 25 mg/dl (7-20); CALCIUM 9.5 mg/dl (8.4-10.2); CARBON DIOXIDE 25 mmol/L (21-31); CHLORIDE 99 mmol/L (97-110); CREATININE 5.78 mg/dl (0.44-1.00); Estimated GFR 8 mL/min (>60); GLUCOSE 54 mg/dl (70-220); POTASSIUM 3.7 mmol/L (3.5-5.1); SODIUM 136 mmol/L (135-144)
[2018-11-23] MEDS: FENTAnyl (DRIP) 1000 mcg/100mL 100 ML IV ×2 (05:54→15:26)
[2018-11-23 05:57] LABS: POSITIVE DIFF @See below
[2018-11-23 06:00] LABS: HEMOGLOBIN 6.5 g/dl (12.0-16.0)
[2018-11-23] MEDS: DEXTROSE 5% 1,000 ML IV ×2 (07:57→14:17)
[2018-11-23] MEDS: SEVELAMER CARBONATE 0.8 GM PKT PO ×3 (07:58→17:24)
[2018-11-23] MEDS: CALCIUM ACETATE 667 MG CAP PO ×3 (07:58→17:24)
[2018-11-23] MEDS: SEVELAMER CARBONATE 2.4 GM PKT PO ×3 (07:58→17:24)
[2018-11-23] MEDS: LANTHANUM 500 MG CHEW PO ×3 (07:58→17:24)
[2018-11-23] MEDS: MEROPENEM 500MG/50 ML (PMX) 50 ML IVPB ×2 (09:51→20:11)
[2018-11-23] MEDS: SERTRALINE 100 MG TAB PO (09:55)
[2018-11-23] MEDS: BUSPIRONE 5 MG TAB PO ×4 (09:55→20:38)
[2018-11-23] MEDS: SOD FERRIC GLUC COMPLX 125 MG in SOD CHLORIDE 0.9% 100 ML IVPB (13:13)
[2018-11-23] MEDS: CASPOFUNGIN 50 MG in SOD CHLORIDE 0.9% 250 ML IVPB (13:16)
[2018-11-23] MEDS: MIDAZOLAM (DRIP) 50 mg/50 mL 50 ML IV (14:58)
[2018-11-23] MEDS: ALTEPLASE (CATHFLO) 2 MG INJ CATHETER (15:00)
[2018-11-24] MEDS: ACCU-CHEK XX ×24 (00:30→23:30)
[2018-11-24] MEDS: DEXMEDETOMIDINE HCL 200 MCG in SOD CHLORIDE 0.9% 48 ML IV ×4 (02:02→21:46)
[2018-11-24] MEDS: FENTAnyl (DRIP) 1000 mcg/100mL 100 ML IV ×2 (05:02→17:27)
[2018-11-24 05:10] LABS: Allen Test ACCEPTAB; Arterial COHb 0.8 % (0.0-3.0); Arterial Fraction of Oxyhgb 97.7 % (93.0-99.0); Arterial HCO3 20.8 mmol/L (22.0-26.0); Arterial MetHb 0.5 % (0.0-1.5); Arterial pCO2 32.2 mmhg (35-45); MODE VENT - AC; Site Right Radial
[2018-11-24 05:17] LABS: ADD MAN DIFF? NO
[2018-11-24 05:26] LABS: WHITE BLOOD COUNT 13.1 10^3/ul (4.8-10.8)
[2018-11-24 05:26] LABS: BASOPHIL # 0.1 10^3/ul (0.0-0.1); BASOPHILS % 0.6 % (0.0-2.0); EOSINOPHILS # 0.5 10^3/ul (0.0-0.5); EOSINOPHILS % 3.8 % (0.0-7.0); HEMATOCRIT 22.7 % (37.0-47.0); LYMPHOCYTES # 0.8 10^3/ul (0.8-2.9); LYMPHOCYTES % 6.4 % (15.0-51.0); MEAN CORPUSCULAR HEMOGLOBIN 33.3 pg (29.0-33.0); MEAN CORPUSCULAR HGB CONC 30.8 g/dl (32.0-37.0); MEAN CORPUSCULAR VOLUME 108.1 fl (82.0-101.0); MEAN PLATELET VOLUME 11.3 fl (7.4-10.4); MONOCYTE # 1.5 10^3/ul (0.3-0.9); MONOCYTES % 11.4 % (0.0-11.0); NEUTROPHILS % 76.5 % (39.0-77.0); PLATELET COUNT 300 10^3/UL (140-415); RED CELL DISTRIBUTION WIDTH 16.4 % (11.5-14.5)
[2018-11-24] MEDS: MIDAZOLAM (DRIP) 50 mg/50 mL 50 ML IV (05:27)
[2018-11-24] MEDS: GABAPENTIN (50 MG/ML PO SYG) GTB ×3 (05:34→20:24)
[2018-11-24] MEDS: ACETAMINOPHEN 650MG/20.3ML CUP NGT ×4 (05:35→18:00)
[2018-11-24] MEDS: LEVOTHYROXINE 100 MCG VIAL IV (05:35)
[2018-11-24] MEDS: PANTOPRAZOLE 40 MG INJ IV (05:35)
[2018-11-24] MEDS: METOCLOPRAMIDE 10 MG INJ IV ×3 (05:35→20:24)
[2018-11-24 06:05] LABS: LACTIC ACID 1.6 mmol/L (0.5-2.0)
[2018-11-24 06:35] LABS: ANION GAP 14 (5-13); BLOOD UREA NITROGEN 29 mg/dl (7-20); CALCIUM 9.1 mg/dl (8.4-10.2); CARBON DIOXIDE 22 mmol/L (21-31); CHLORIDE 97 mmol/L (97-110); CREATININE 6.48 mg/dl (0.44-1.00); Estimated GFR 7 mL/min (>60); GLUCOSE 79 mg/dl (70-220); SODIUM 133 mmol/L (135-144)
[2018-11-24] MEDS: SEVELAMER CARBONATE 2.4 GM PKT PO ×3 (08:28→17:42)
[2018-11-24] MEDS: LANTHANUM 500 MG CHEW PO ×3 (08:28→17:42)
[2018-11-24] MEDS: MEROPENEM 500MG/50 ML (PMX) 50 ML IVPB ×2 (08:28→20:23)
[2018-11-24] MEDS: CALCIUM ACETATE 667 MG CAP PO ×3 (08:28→17:42)
[2018-11-24] MEDS: SEVELAMER CARBONATE 0.8 GM PKT PO ×3 (08:29→17:42)
[2018-11-24] MEDS: SERTRALINE 100 MG TAB PO (09:00)
[2018-11-24] MEDS: BUSPIRONE 5 MG TAB PO ×3 (09:00→20:21)
[2018-11-24] MEDS: HEPARIN 1000 UNITS/ML 10 ML INJ CATHETER (14:58)
[2018-11-24] MEDS: SOD FERRIC GLUC COMPLX 125 MG in SOD CHLORIDE 0.9% 100 ML IVPB (16:11)
[2018-11-24] MEDS: CASPOFUNGIN 50 MG in SOD CHLORIDE 0.9% 250 ML IVPB (16:12)
[2018-11-24] MEDS: DIPHENHYDRAMINE 50 MG CAP PO (16:33)
[2018-11-24] MEDS: HYDROmorphONE 0.5 MG/0.5 ML SYG IV (17:25)
[2018-11-24] MEDS: VANCOMYCIN 750 MG (PMX) 250 ML IVPB (17:32)
[2018-11-24] MEDS: EPOETIN ALFA-EPBX (ESRD) 4,000 UNIT/ML VIAL SC (17:39)
[2018-11-25] MEDS: ACCU-CHEK XX ×24 (00:30→23:30)
[2018-11-25] MEDS: IOHEXOL 14.3 MG(I)/ML (ADULT) BTL PO (00:49)
[2018-11-25] MEDS: FENTAnyl (DRIP) 1000 mcg/100mL 100 ML IV ×2 (00:53→19:43)
[2018-11-25] MEDS: DEXMEDETOMIDINE HCL 200 MCG in SOD CHLORIDE 0.9% 48 ML IV ×5 (02:44→20:30)
[2018-11-25] MEDS: ACETAMINOPHEN 650MG/20.3ML CUP NGT ×4 (05:17→15:41)
[2018-11-25] MEDS: METOCLOPRAMIDE 10 MG INJ IV ×3 (05:17→21:02)
[2018-11-25] MEDS: GABAPENTIN (50 MG/ML PO SYG) GTB ×3 (05:17→20:56)
[2018-11-25] MEDS: LEVOTHYROXINE 100 MCG VIAL IV (05:17)
[2018-11-25] MEDS: PANTOPRAZOLE 40 MG INJ IV (05:17)
[2018-11-25 05:26] LABS: ADD MAN DIFF? NO
[2018-11-25 05:33] LABS: BASOPHIL # 0.1 10^3/ul (0.0-0.1); BASOPHILS % 0.5 % (0.0-2.0); EOSINOPHILS # 0.4 10^3/ul (0.0-0.5); EOSINOPHILS % 3.7 % (0.0-7.0); HEMATOCRIT 22.9 % (37.0-47.0); LYMPHOCYTES # 0.7 10^3/ul (0.8-2.9); LYMPHOCYTES % 6.7 % (15.0-51.0); MEAN CORPUSCULAR HEMOGLOBIN 33.7 pg (29.0-33.0); MEAN CORPUSCULAR HGB CONC 30.6 g/dl (32.0-37.0); MEAN CORPUSCULAR VOLUME 110.1 fl (82.0-101.0); MEAN PLATELET VOLUME 11.1 fl (7.4-10.4); MONOCYTE # 1.3 10^3/ul (0.3-0.9); MONOCYTES % 13.5 % (0.0-11.0); NEUTROPHIL # 7.4 10^3/ul (1.6-7.5); NEUTROPHILS % 74.7 % (39.0-77.0); PLATELET COUNT 242 10^3/UL (140-415); RED BLOOD COUNT 2.08 10^6/ul (4.20-5.40); RED CELL DISTRIBUTION WIDTH 16.6 % (11.5-14.5)
[2018-11-25 05:33] LABS: WHITE BLOOD COUNT 9.9 10^3/ul (4.8-10.8)
[2018-11-25 06:21] LABS: ANION GAP 12 (5-13); BLOOD UREA NITROGEN 20 mg/dl (7-20); CALCIUM 8.9 mg/dl (8.4-10.2); CARBON DIOXIDE 23 mmol/L (21-31); CHLORIDE 96 mmol/L (97-110); CREATININE 5.03 mg/dl (0.44-1.00); Estimated GFR 9 mL/min (>60); GLUCOSE 108 mg/dl (70-220); PHOSPHORUS 4.6 mg/dl (2.5-4.9); POTASSIUM 3.8 mmol/L (3.5-5.1); SODIUM 131 mmol/L (135-144)
[2018-11-25] MEDS: NORepinephrine 32 MG in SOD CHLORIDE 0.9% 218 ML IV ×2 (07:00→20:37)
[2018-11-25] MEDS: SEVELAMER CARBONATE 0.8 GM PKT PO ×3 (09:05→19:59)
[2018-11-25] MEDS: SERTRALINE 100 MG TAB PO (09:06)
[2018-11-25] MEDS: CALCIUM ACETATE 667 MG CAP PO ×3 (09:06→19:56)
[2018-11-25] MEDS: SEVELAMER CARBONATE 2.4 GM PKT PO ×3 (09:06→20:00)
[2018-11-25] MEDS: LANTHANUM 500 MG CHEW PO ×3 (09:07→19:57)
[2018-11-25] MEDS: MEROPENEM 500MG/50 ML (PMX) 50 ML IVPB ×2 (09:09→20:48)
[2018-11-25] MEDS: DEXTROSE 5% 1,000 ML IV ×2 (09:10→19:38)
[2018-11-25] MEDS: BUSPIRONE 5 MG TAB PO ×3 (11:12→20:48)
[2018-11-25] MEDS: CASPOFUNGIN 50 MG in SOD CHLORIDE 0.9% 250 ML IVPB (14:29)
[2018-11-25] MEDS: INSULIN HUMAN REGULAR 100 UNIT in SOD CHLORIDE 0.9% 99 ML IV (19:45)
[2018-11-26] MEDS: ACCU-CHEK XX ×24 (00:30→22:20)
[2018-11-26] MEDS: ACETAMINOPHEN 650MG/20.3ML CUP NGT ×4 (00:35→20:22)
[2018-11-26] MEDS: DEXMEDETOMIDINE HCL 200 MCG in SOD CHLORIDE 0.9% 48 ML IV ×4 (01:48→22:09)
[2018-11-26] MEDS: INSULIN HUMAN REGULAR 100 UNIT in SOD CHLORIDE 0.9% 99 ML IV (03:06)
[2018-11-26 05:14] LABS: ADD MAN DIFF? NO
[2018-11-26 05:17] LABS: WHITE BLOOD COUNT 13.4 10^3/ul (4.8-10.8)
[2018-11-26 05:17] LABS: ABNORMAL IP MESSAGE 1; BASOPHIL # 0.1 10^3/ul (0.0-0.1); BASOPHILS % 0.7 % (0.0-2.0); EOSINOPHILS # 0.4 10^3/ul (0.0-0.5); EOSINOPHILS % 2.9 % (0.0-7.0); HEMATOCRIT 23.2 % (37.0-47.0); HEMOGLOBIN 7.3 g/dl (12.0-16.0); LYMPHOCYTES # 1.1 10^3/ul (0.8-2.9); LYMPHOCYTES % 8.3 % (15.0-51.0); MEAN CORPUSCULAR HEMOGLOBIN 33.2 pg (29.0-33.0); MEAN CORPUSCULAR HGB CONC 31.5 g/dl (32.0-37.0); MEAN CORPUSCULAR VOLUME 105.5 fl (82.0-101.0); MEAN PLATELET VOLUME 10.8 fl (7.4-10.4); MONOCYTE # 1.6 10^3/ul (0.3-0.9); MONOCYTES % 11.6 % (0.0-11.0); NEUTROPHIL # 10.1 10^3/ul (1.6-7.5); NEUTROPHILS % 75.3 % (39.0-77.0); PLATELET COUNT 328 10^3/UL (140-415); RED CELL DISTRIBUTION WIDTH 16.3 % (11.5-14.5)
[2018-11-26 05:30] LABS: POSITIVE DIFF @See below
[2018-11-26 05:44] LABS: ANION GAP 13 (5-13); BLOOD UREA NITROGEN 22 mg/dl (7-20); CALCIUM 9.3 mg/dl (8.4-10.2); CARBON DIOXIDE 22 mmol/L (21-31); CHLORIDE 96 mmol/L (97-110); Estimated GFR 7 mL/min (>60); GLUCOSE 105 mg/dl (70-220); MAGNESIUM 2.1 mg/dl (1.7-2.5); PHOSPHORUS 5.3 mg/dl (2.5-4.9); POTASSIUM 3.6 mmol/L (3.5-5.1); SODIUM 131 mmol/L (135-144)
[2018-11-26] MEDS: METOCLOPRAMIDE 10 MG INJ IV ×3 (05:49→22:09)
[2018-11-26] MEDS: LEVOTHYROXINE 100 MCG VIAL IV (05:49)
[2018-11-26] MEDS: PANTOPRAZOLE 40 MG INJ IV (05:50)
[2018-11-26] MEDS: GABAPENTIN (50 MG/ML PO SYG) GTB ×3 (05:54→22:09)
[2018-11-26] MEDS: DEXTROSE 5% 1,000 ML IV (06:01)
[2018-11-26] MEDS: LANTHANUM 500 MG CHEW PO ×3 (08:49→14:26)
[2018-11-26] MEDS: CALCIUM ACETATE 667 MG CAP PO ×3 (08:49→20:23)
[2018-11-26] MEDS: SERTRALINE 100 MG TAB PO (08:49)
[2018-11-26] MEDS: SEVELAMER CARBONATE 0.8 GM PKT PO ×3 (08:50→20:23)
[2018-11-26] MEDS: MEROPENEM 500MG/50 ML (PMX) 50 ML IVPB ×2 (08:50→20:43)
[2018-11-26] MEDS: SEVELAMER CARBONATE 2.4 GM PKT PO ×3 (08:50→20:23)
[2018-11-26] MEDS: BUSPIRONE 5 MG TAB PO ×3 (08:50→20:43)
[2018-11-26 13:23] LABS: HEPATITIS B SURFACE ANTIGEN NEGATIVE (NEGATIVE)
[2018-11-26] MEDS: FENTAnyl (DRIP) 1000 mcg/100mL 100 ML IV ×2 (14:25→23:07)
[2018-11-26 14:30] LABS: ALANINE AMINOTRANSFERASE 16 IU/L (13-69); ALBUMIN 2.8 g/dl (3.3-4.9); ALBUMIN/GLOBULIN RATIO 0.84; ALKALINE PHOSPHATASE 201 IU/L (42-121); ANION GAP 14 (5-13); ASPARTATE AMINO TRANSFERASE 15 IU/L (15-46); BILIRUBIN,INDIRECT 0.1 mg/dl (0-1.1); BILIRUBIN,TOTAL 0.1 mg/dl (0.2-1.3); BLOOD UREA NITROGEN 23 mg/dl (7-20); CALCIUM 9.3 mg/dl (8.4-10.2); CARBON DIOXIDE 21 mmol/L (21-31); CHLORIDE 93 mmol/L (97-110); CREATININE 6.82 mg/dl (0.44-1.00); Estimated GFR 7 mL/min (>60); GLUCOSE 122 mg/dl (70-220); MAGNESIUM 2.1 mg/dl (1.7-2.5); PHOSPHORUS 5.6 mg/dl (2.5-4.9); POTASSIUM 3.8 mmol/L (3.5-5.1); SODIUM 128 mmol/L (135-144); TOTAL PROTEIN 6.1 g/dl (6.1-8.1); TRIGLYCERIDES 231 mg/dl (0-149)
[2018-11-26] MEDS: CASPOFUNGIN 50 MG in SOD CHLORIDE 0.9% 250 ML IVPB (14:30)
[2018-11-26 14:37] LABS: PREALBUMIN 6.7 mg/dl (17.6-36.0)
[2018-11-26] MEDS: HEPARIN 1000 UNITS/ML 10 ML INJ CATHETER (18:53)
[2018-11-26] MEDS: EPOETIN ALFA-EPBX (ESRD) 4,000 UNIT/ML VIAL SC (20:22)
[2018-11-27] MEDS: ACETAMINOPHEN 650MG/20.3ML CUP NGT ×4 (00:11→18:15)
[2018-11-27] MEDS: ACCU-CHEK XX ×24 (00:13→23:07)
[2018-11-27] MEDS: DEXMEDETOMIDINE HCL 200 MCG in SOD CHLORIDE 0.9% 48 ML IV ×3 (02:33→08:20)
[2018-11-27 05:23] LABS: ADD MAN DIFF? NO
[2018-11-27 05:29] LABS: BASOPHIL # 0.1 10^3/ul (0.0-0.1); EOSINOPHILS # 0.4 10^3/ul (0.0-0.5); EOSINOPHILS % 4.1 % (0.0-7.0); HEMATOCRIT 22.7 % (37.0-47.0); HEMOGLOBIN 7.2 g/dl (12.0-16.0); LYMPHOCYTES # 0.8 10^3/ul (0.8-2.9); LYMPHOCYTES % 7.6 % (15.0-51.0); MEAN CORPUSCULAR HEMOGLOBIN 33.8 pg (29.0-33.0); MEAN CORPUSCULAR HGB CONC 31.7 g/dl (32.0-37.0); MEAN CORPUSCULAR VOLUME 106.6 fl (82.0-101.0); MEAN PLATELET VOLUME 10.9 fl (7.4-10.4); MONOCYTE # 1.1 10^3/ul (0.3-0.9); MONOCYTES % 10.6 % (0.0-11.0); NEUTROPHIL # 7.8 10^3/ul (1.6-7.5); NEUTROPHILS % 75.4 % (39.0-77.0); PLATELET COUNT 319 10^3/UL (140-415); RED BLOOD COUNT 2.13 10^6/ul (4.20-5.40); RED CELL DISTRIBUTION WIDTH 16.2 % (11.5-14.5)
[2018-11-27 05:29] LABS: WHITE BLOOD COUNT 10.4 10^3/ul (4.8-10.8)
[2018-11-27] MEDS: DEXTROSE 5% 1,000 ML IV (05:43)
[2018-11-27] MEDS: GABAPENTIN (50 MG/ML PO SYG) GTB ×3 (05:44→21:32)
[2018-11-27] MEDS: LEVOTHYROXINE 100 MCG VIAL IV (05:44)
[2018-11-27] MEDS: METOCLOPRAMIDE 10 MG INJ IV ×3 (05:45→21:32)
[2018-11-27] MEDS: PANTOPRAZOLE 40 MG INJ IV (05:45)
[2018-11-27 05:51] LABS: ANION GAP 11 (5-13); BLOOD UREA NITROGEN 16 mg/dl (7-20); CALCIUM 9.2 mg/dl (8.4-10.2); CARBON DIOXIDE 25 mmol/L (21-31); CHLORIDE 95 mmol/L (97-110); CREATININE 4.75 mg/dl (0.44-1.00); Estimated GFR 10 mL/min (>60); GLUCOSE 106 mg/dl (70-220); PHOSPHORUS 4.1 mg/dl (2.5-4.9); POTASSIUM 3.5 mmol/L (3.5-5.1); SODIUM 131 mmol/L (135-144)
[2018-11-27] MEDS: INSULIN HUMAN REGULAR 100 UNIT in SOD CHLORIDE 0.9% 99 ML IV (06:10)
[2018-11-27] MEDS: NORepinephrine 32 MG in SOD CHLORIDE 0.9% 218 ML IV (06:11)
[2018-11-27] MEDS: SEVELAMER CARBONATE 0.8 GM PKT PO ×3 (07:35→17:35)
[2018-11-27] MEDS: LANTHANUM 500 MG CHEW PO ×3 (07:35→17:35)
[2018-11-27] MEDS: CALCIUM ACETATE 667 MG CAP PO ×3 (07:35→17:35)
[2018-11-27] MEDS: MEROPENEM 500MG/50 ML (PMX) 50 ML IVPB (08:19)
[2018-11-27] MEDS: FENTAnyl (DRIP) 1000 mcg/100mL 100 ML IV ×3 (08:20→21:42)
[2018-11-27] MEDS: SEVELAMER CARBONATE 2.4 GM PKT PO ×3 (10:15→17:35)
[2018-11-27] MEDS: SERTRALINE 100 MG TAB PO (10:53)
[2018-11-27] MEDS: BUSPIRONE 5 MG TAB PO ×3 (10:53→21:32)
[2018-11-27] MEDS: MIDAZOLAM (DRIP) 50 mg/50 mL 50 ML IV ×2 (12:47→19:21)
[2018-11-27] MEDS: TPN 1,000 ML IV (15:35)
[2018-11-27] MEDS: CASPOFUNGIN 50 MG in SOD CHLORIDE 0.9% 250 ML IVPB (15:37)
[2018-11-27] MEDS: DEXTROSE 50% 50 ML SYRINGE IV (15:56)
[2018-11-27] MEDS: HYDROmorphONE 0.5 MG/0.5 ML SYG IV (18:15)
[2018-11-27] MEDS: LORAZEPAM 0.5 MG TAB PO (18:15)
[2018-11-28] MEDS: ACCU-CHEK XX ×25 (00:07→23:54)
[2018-11-28] MEDS: MIDAZOLAM (DRIP) 50 mg/50 mL 50 ML IV ×4 (00:26→20:43)
[2018-11-28 05:05] LABS: ADD MAN DIFF? NO
[2018-11-28 05:12] LABS: WHITE BLOOD COUNT 13.4 10^3/ul (4.8-10.8)
[2018-11-28 05:12] LABS: ABNORMAL IP MESSAGE 1; BASOPHIL # 0.1 10^3/ul (0.0-0.1); BASOPHILS % 0.9 % (0.0-2.0); EOSINOPHILS # 0.4 10^3/ul (0.0-0.5); EOSINOPHILS % 3.1 % (0.0-7.0); HEMOGLOBIN 7.5 g/dl (12.0-16.0); LYMPHOCYTES # 1.4 10^3/ul (0.8-2.9); LYMPHOCYTES % 10.5 % (15.0-51.0); MEAN CORPUSCULAR HGB CONC 31.3 g/dl (32.0-37.0); MEAN CORPUSCULAR VOLUME 105.7 fl (82.0-101.0); MEAN PLATELET VOLUME 10.8 fl (7.4-10.4); MONOCYTE # 1.6 10^3/ul (0.3-0.9); MONOCYTES % 12.2 % (0.0-11.0); NEUTROPHIL # 9.5 10^3/ul (1.6-7.5); NEUTROPHILS % 71.1 % (39.0-77.0); PLATELET COUNT 412 10^3/UL (140-415); RED BLOOD COUNT 2.27 10^6/ul (4.20-5.40); RED CELL DISTRIBUTION WIDTH 16.3 % (11.5-14.5)
[2018-11-28 05:14] LABS: POSITIVE DIFF @See below
[2018-11-28] MEDS: GABAPENTIN (50 MG/ML PO SYG) GTB ×2 (05:17→15:14)
[2018-11-28] MEDS: ACETAMINOPHEN 650MG/20.3ML CUP NGT ×5 (05:17→23:18)
[2018-11-28] MEDS: METOCLOPRAMIDE 10 MG INJ IV ×3 (05:25→21:11)
[2018-11-28] MEDS: LEVOTHYROXINE 100 MCG VIAL IV (05:25)
[2018-11-28] MEDS: PANTOPRAZOLE 40 MG INJ IV (05:25)
[2018-11-28] MEDS: FENTAnyl (DRIP) 1000 mcg/100mL 100 ML IV ×2 (05:28→15:04)
[2018-11-28 05:33] LABS: ANION GAP 11 (5-13); BLOOD UREA NITROGEN 19 mg/dl (7-20); CALCIUM 9.2 mg/dl (8.4-10.2); CARBON DIOXIDE 24 mmol/L (21-31); CHLORIDE 95 mmol/L (97-110); CREATININE 5.94 mg/dl (0.44-1.00); Estimated GFR 8 mL/min (>60); GLUCOSE 62 mg/dl (70-220); MAGNESIUM 1.9 mg/dl (1.7-2.5); PHOSPHORUS 4.4 mg/dl (2.5-4.9); POTASSIUM 3.5 mmol/L (3.5-5.1); SODIUM 130 mmol/L (135-144)
[2018-11-28] MEDS: SEVELAMER CARBONATE 2.4 GM PKT PO ×3 (08:46→17:12)
[2018-11-28] MEDS: BUSPIRONE 5 MG TAB PO ×2 (08:46→15:14)
[2018-11-28] MEDS: SERTRALINE 100 MG TAB PO (08:46)
[2018-11-28] MEDS: LANTHANUM 500 MG CHEW PO ×3 (08:46→17:12)
[2018-11-28] MEDS: FLUCONAZOLE 100 MG TAB PO (08:46)
[2018-11-28] MEDS: CALCIUM ACETATE 667 MG CAP PO ×3 (08:47→17:49)
[2018-11-28] MEDS: SEVELAMER CARBONATE 0.8 GM PKT PO ×3 (08:47→17:12)
[2018-11-28] MEDS: TPN 1,000 ML IV (10:41)
[2018-11-28] MEDS: HEPARIN 1000 UNITS/ML 10 ML INJ CATHETER (15:04)
[2018-11-28] MEDS: EPOETIN ALFA-EPBX (ESRD) 4,000 UNIT/ML VIAL SC (16:32)
[2018-11-28] MEDS: GABAPENTIN (50 MG/ML PO SYG) NGT (21:11)
[2018-11-28] MEDS: DIPHENHYDRAMINE 50 MG CAP NGT (21:11)
[2018-11-28] MEDS: BUSPIRONE 5 MG TAB NGT (21:11)
[2018-11-28] MEDS: HYDROmorphONE 0.5 MG/0.5 ML SYG IV (21:15)
[2018-11-28] MEDS: NORepinephrine 32 MG in SOD CHLORIDE 0.9% 218 ML IV (21:23)
[2018-11-28] MEDS: INSULIN HUMAN REGULAR 100 UNIT in SOD CHLORIDE 0.9% 99 ML IV (23:57)
[2018-11-29] MEDS: FENTAnyl (DRIP) 1000 mcg/100mL 100 ML IV ×3 (00:16→20:21)
[2018-11-29] MEDS: ACCU-CHEK XX ×23 (00:17→23:11)
[2018-11-29] MEDS: MIDAZOLAM (DRIP) 50 mg/50 mL 50 ML IV ×4 (02:55→23:12)
[2018-11-29] MEDS: TPN 1,000 ML IV (04:25)
[2018-11-29 05:10] LABS: WHITE BLOOD COUNT 9.2 10^3/ul (4.8-10.8)
[2018-11-29 05:10] LABS: ABNORMAL IP MESSAGE 1; ADD MAN DIFF? NO; BASOPHIL # 0.1 10^3/ul (0.0-0.1); BASOPHILS % 1.4 % (0.0-2.0); EOSINOPHILS # 0.4 10^3/ul (0.0-0.5); EOSINOPHILS % 3.9 % (0.0-7.0); HEMATOCRIT 21.6 % (37.0-47.0); LYMPHOCYTES # 1.2 10^3/ul (0.8-2.9); LYMPHOCYTES % 12.8 % (15.0-51.0); MEAN CORPUSCULAR HEMOGLOBIN 33.2 pg (29.0-33.0); MEAN CORPUSCULAR VOLUME 106.9 fl (82.0-101.0); MEAN PLATELET VOLUME 9.8 fl (7.4-10.4); MONOCYTE # 1.2 10^3/ul (0.3-0.9); MONOCYTES % 13.3 % (0.0-11.0); NEUTROPHIL # 6.1 10^3/ul (1.6-7.5); NEUTROPHILS % 66.5 % (39.0-77.0); PLATELET COUNT 331 10^3/UL (140-415); RED BLOOD COUNT 2.02 10^6/ul (4.20-5.40); RED CELL DISTRIBUTION WIDTH 16.5 % (11.5-14.5)
[2018-11-29 05:16] LABS: POSITIVE DIFF @See below
[2018-11-29] MEDS: ACETAMINOPHEN 650MG/20.3ML CUP NGT ×4 (05:16→23:16)
[2018-11-29] MEDS: LEVOTHYROXINE 100 MCG VIAL IV (05:16)
[2018-11-29 05:17] LABS: HEMOGLOBIN 6.7 g/dl (12.0-16.0)
[2018-11-29] MEDS: METOCLOPRAMIDE 10 MG INJ IV ×3 (05:17→20:24)
[2018-11-29] MEDS: GABAPENTIN (50 MG/ML PO SYG) NGT ×3 (05:21→20:24)
[2018-11-29] MEDS: FAMOTIDINE 20 MG INJ IV (05:21)
[2018-11-29 05:34] LABS: INR 1.07; PT RATIO 1.1
[2018-11-29 05:35] LABS: PARTIAL THROMBOPLASTIN TIME 55.6 Sec (23.0-35.0)
[2018-11-29 05:39] LABS: ANION GAP 9 (5-13); BLOOD UREA NITROGEN 15 mg/dl (7-20); CALCIUM 9.3 mg/dl (8.4-10.2); CARBON DIOXIDE 24 mmol/L (21-31); CHLORIDE 100 mmol/L (97-110); CREATININE 4.91 mg/dl (0.44-1.00); Estimated GFR 10 mL/min (>60); GLUCOSE 112 mg/dl (70-220); POTASSIUM 3.4 mmol/L (3.5-5.1); SODIUM 133 mmol/L (135-144)
[2018-11-29 07:09] LABS: ADD MAN DIFF? NO
[2018-11-29 07:13] LABS: WHITE BLOOD COUNT 9.8 10^3/ul (4.8-10.8)
[2018-11-29 07:13] LABS: BASOPHIL # 0.1 10^3/ul (0.0-0.1); BASOPHILS % 1.3 % (0.0-2.0); EOSINOPHILS # 0.4 10^3/ul (0.0-0.5); EOSINOPHILS % 4.3 % (0.0-7.0); HEMATOCRIT 23.4 % (37.0-47.0); HEMOGLOBIN 7.4 g/dl (12.0-16.0); LYMPHOCYTES # 1.3 10^3/ul (0.8-2.9); LYMPHOCYTES % 13.1 % (15.0-51.0); MEAN CORPUSCULAR HEMOGLOBIN 33.6 pg (29.0-33.0); MEAN CORPUSCULAR HGB CONC 31.6 g/dl (32.0-37.0); MEAN CORPUSCULAR VOLUME 106.4 fl (82.0-101.0); MEAN PLATELET VOLUME 9.9 fl (7.4-10.4); MONOCYTE # 1.4 10^3/ul (0.3-0.9); MONOCYTES % 14.5 % (0.0-11.0); NEUTROPHIL # 6.3 10^3/ul (1.6-7.5); NEUTROPHILS % 64.7 % (39.0-77.0); PLATELET COUNT 343 10^3/UL (140-415); RED CELL DISTRIBUTION WIDTH 16.7 % (11.5-14.5)
[2018-11-29] MEDS: SEVELAMER CARBONATE 2.4 GM PKT PO ×3 (08:39→17:44)
[2018-11-29] MEDS: BUSPIRONE 5 MG TAB NGT ×3 (08:39→20:15)
[2018-11-29] MEDS: FLUCONAZOLE 100 MG TAB PO (08:39)
[2018-11-29] MEDS: SEVELAMER CARBONATE 0.8 GM PKT PO ×3 (08:39→17:44)
[2018-11-29] MEDS: SERTRALINE 100 MG TAB PO (08:40)
[2018-11-29] MEDS: LANTHANUM 500 MG CHEW PO (08:40)
[2018-11-29] MEDS: CALCIUM ACETATE 667 MG CAP NGT ×3 (08:41→17:44)
[2018-11-29] MEDS: POTASSIUM CHLORIDE 100 ML IVPB (11:20)
[2018-11-29] MEDS ORDERED: POTASSIUM CHLORIDE 20 MEQ POWDER FOR ORAL SOLN GTB (11:30)
[2018-11-29] MEDS: LANTHANUM 500 MG CHEW NGT ×2 (12:45→17:22)
[2018-11-29] MEDS: MIDODRINE 5 MG TAB PO ×2 (12:45→20:16)
[2018-11-29] MEDS: DEXMEDETOMIDINE HCL 200 MCG in SOD CHLORIDE 0.9% 48 ML IV ×3 (14:00→23:12)
[2018-11-30] MEDS: TPN 1,000 ML IV ×2 (00:42→20:55)
[2018-11-30] MEDS: ACCU-CHEK XX ×10 (01:00→23:00)
[2018-11-30] MEDS: DEXMEDETOMIDINE HCL 200 MCG in SOD CHLORIDE 0.9% 48 ML IV ×5 (04:46→22:22)
[2018-11-30 05:02] LABS: AADO2 Arterial 59.4 mmHg (7.0-24.0); ADD MAN DIFF? NO; Arterial Base Excess -5.4 mmol/L (-3.0-3); Arterial Blood Gas Oxygen Sat 97.9 mmHG (95.0-98.0); Arterial COHb 0.5 % (0.0-3.0); Arterial Fraction of Oxyhgb 97.1 % (93.0-99.0); Arterial HCO3 19.3 mmol/L (22.0-26.0); Arterial MetHb 0.3 % (0.0-1.5); Arterial pCO2 34.1 mmhg (35-45); MODE VENT - AC; Site LB
[2018-11-30 05:12] LABS: WHITE BLOOD COUNT 8.7 10^3/ul (4.8-10.8)
[2018-11-30 05:12] LABS: BASOPHIL # 0.1 10^3/ul (0.0-0.1); BASOPHILS % 1.3 % (0.0-2.0); EOSINOPHILS # 0.4 10^3/ul (0.0-0.5); EOSINOPHILS % 4.4 % (0.0-7.0); HEMATOCRIT 22.6 % (37.0-47.0); LYMPHOCYTES % 11.6 % (15.0-51.0); MEAN CORPUSCULAR HEMOGLOBIN 33.3 pg (29.0-33.0); MEAN CORPUSCULAR VOLUME 107.6 fl (82.0-101.0); MEAN PLATELET VOLUME 10.3 fl (7.4-10.4); MONOCYTES % 11.2 % (0.0-11.0); NEUTROPHILS % 69.7 % (39.0-77.0); PLATELET COUNT 336 10^3/UL (140-415); RED CELL DISTRIBUTION WIDTH 16.6 % (11.5-14.5)
[2018-11-30 05:33] LABS: ALANINE AMINOTRANSFERASE 14 IU/L (13-69); ALBUMIN 2.2 g/dl (3.3-4.9); ALBUMIN/GLOBULIN RATIO 0.75; ALKALINE PHOSPHATASE 170 IU/L (42-121); ANION GAP 10 (5-13); ASPARTATE AMINO TRANSFERASE 12 IU/L (15-46); BLOOD UREA NITROGEN 22 mg/dl (7-20); CALCIUM 9.5 mg/dl (8.4-10.2); CARBON DIOXIDE 20 mmol/L (21-31); CHLORIDE 101 mmol/L (97-110); CREATININE 5.67 mg/dl (0.44-1.00); Estimated GFR 8 mL/min (>60); GLUCOSE 140 mg/dl (70-220); POTASSIUM 4.2 mmol/L (3.5-5.1); SODIUM 131 mmol/L (135-144); TOTAL PROTEIN 5.1 g/dl (6.1-8.1)
[2018-11-30] MEDS: FENTAnyl (DRIP) 1000 mcg/100mL 100 ML IV ×3 (05:46→22:45)
[2018-11-30] MEDS: METOCLOPRAMIDE 10 MG INJ IV ×3 (05:48→20:58)
[2018-11-30] MEDS: ACETAMINOPHEN 650MG/20.3ML CUP NGT ×3 (05:48→18:00)
[2018-11-30] MEDS: LEVOTHYROXINE 100 MCG VIAL IV (05:48)
[2018-11-30] MEDS: GABAPENTIN (50 MG/ML PO SYG) NGT ×3 (05:48→20:59)
[2018-11-30] MEDS: FAMOTIDINE 20 MG INJ IV (05:52)
[2018-11-30 06:36] LABS: PHOSPHORUS 3.8 mg/dl (2.5-4.9)
[2018-11-30 06:36] LABS: MAGNESIUM 1.9 mg/dl (1.7-2.5)
[2018-11-30 07:27] LABS: LACTIC ACID 1.6 mmol/L (0.5-2.0)
[2018-11-30] MEDS: SEVELAMER CARBONATE 0.8 GM PKT PO ×3 (08:30→17:35)
[2018-11-30] MEDS: CALCIUM ACETATE 667 MG CAP NGT ×3 (08:30→17:35)
[2018-11-30] MEDS: SEVELAMER CARBONATE 2.4 GM PKT PO ×3 (08:30→17:35)
[2018-11-30] MEDS: LANTHANUM 500 MG CHEW NGT ×3 (08:30→17:35)
[2018-11-30] MEDS: BUSPIRONE 5 MG TAB NGT ×3 (08:31→20:57)
[2018-11-30] MEDS: SERTRALINE 100 MG TAB NGT (08:31)
[2018-11-30] MEDS: FLUCONAZOLE 100 MG TAB NGT (08:31)
[2018-11-30] MEDS: MIDODRINE 5 MG TAB PO ×3 (08:33→20:58)
[2018-11-30] MEDS: ALTEPLASE (CATHFLO) 2 MG INJ CATHETER (10:12)
[2018-11-30] MEDS: MIDAZOLAM (DRIP) 50 mg/50 mL 50 ML IV (20:37)
[2018-12-01] MEDS: ACETAMINOPHEN 650MG/20.3ML CUP NGT ×4 (01:20→18:00)
[2018-12-01] MEDS: HEPARIN 1000 UNITS/ML 10 ML INJ CATHETER (02:21)
[2018-12-01] MEDS: DEXMEDETOMIDINE HCL 200 MCG in SOD CHLORIDE 0.9% 48 ML IV ×3 (04:34→21:54)
[2018-12-01 04:56] LABS: ADD MAN DIFF? NO
[2018-12-01 05:10] LABS: BASOPHIL # 0.1 10^3/ul (0.0-0.1); BASOPHILS % 1.5 % (0.0-2.0); EOSINOPHILS # 0.4 10^3/ul (0.0-0.5); HEMATOCRIT 24.3 % (37.0-47.0); HEMOGLOBIN 7.6 g/dl (12.0-16.0); LYMPHOCYTES # 0.6 10^3/ul (0.8-2.9); LYMPHOCYTES % 8.8 % (15.0-51.0); MEAN CORPUSCULAR HEMOGLOBIN 33.3 pg (29.0-33.0); MEAN CORPUSCULAR HGB CONC 31.3 g/dl (32.0-37.0); MEAN CORPUSCULAR VOLUME 106.6 fl (82.0-101.0); MEAN PLATELET VOLUME 10.2 fl (7.4-10.4); MONOCYTE # 0.7 10^3/ul (0.3-0.9); MONOCYTES % 10.3 % (0.0-11.0); NEUTROPHIL # 5.2 10^3/ul (1.6-7.5); NEUTROPHILS % 72.9 % (39.0-77.0); PLATELET COUNT 296 10^3/UL (140-415); RED BLOOD COUNT 2.28 10^6/ul (4.20-5.40); RED CELL DISTRIBUTION WIDTH 16.1 % (11.5-14.5)
[2018-12-01 05:10] LABS: WHITE BLOOD COUNT 7.2 10^3/ul (4.8-10.8)
[2018-12-01] MEDS: METOCLOPRAMIDE 10 MG INJ IV ×3 (05:40→20:13)
[2018-12-01] MEDS: LEVOTHYROXINE 100 MCG VIAL IV (05:40)
[2018-12-01] MEDS: FAMOTIDINE 20 MG INJ IV (05:43)
[2018-12-01] MEDS: GABAPENTIN (50 MG/ML PO SYG) NGT ×3 (05:43→20:15)
[2018-12-01] MEDS: ACCU-CHEK XX (06:00)
[2018-12-01] MEDS: CALCIUM ACETATE 667 MG CAP NGT ×3 (07:50→17:35)
[2018-12-01] MEDS: SEVELAMER CARBONATE 0.8 GM PKT PO ×3 (07:50→17:35)
[2018-12-01] MEDS: LANTHANUM 500 MG CHEW NGT ×3 (07:50→17:35)
[2018-12-01] MEDS: SEVELAMER CARBONATE 2.4 GM PKT PO ×3 (07:50→17:35)
[2018-12-01 08:26] LABS: ANION GAP 7 (5-13); BLOOD UREA NITROGEN 20 mg/dl (7-20); CALCIUM 9.3 mg/dl (8.4-10.2); CARBON DIOXIDE 25 mmol/L (21-31); CHLORIDE 102 mmol/L (97-110); CREATININE 4.49 mg/dl (0.44-1.00); Estimated GFR 11 mL/min (>60); GLUCOSE 127 mg/dl (70-220); MAGNESIUM 1.7 mg/dl (1.7-2.5); POTASSIUM 3.9 mmol/L (3.5-5.1); SODIUM 134 mmol/L (135-144)
[2018-12-01] MEDS: MIDODRINE 5 MG TAB PO ×3 (09:55→20:12)
[2018-12-01] MEDS: SERTRALINE 100 MG TAB NGT (09:55)
[2018-12-01] MEDS: BUSPIRONE 5 MG TAB NGT ×3 (09:55→20:12)
[2018-12-01] MEDS: FLUCONAZOLE 100 MG TAB NGT (09:55)
[2018-12-01] MEDS: FENTAnyl (DRIP) 1000 mcg/100mL 100 ML IV (14:52)
[2018-12-01] MEDS: TPN 1,000 ML IV (16:54)
[2018-12-01] MEDS ORDERED: LIDOCAINE 1% (MDV) 20 ML INJ (17:19)
[2018-12-01] MEDS: LIDOCAINE 1%/EPI (1:100,000) (MDV) 20 ML (17:55)
[2018-12-01] MEDS: EPOETIN ALFA-EPBX (ESRD) 4,000 UNIT/ML VIAL SC (21:56)
[2018-12-01] MEDS: INSULIN HUMAN REGULAR 100 UNIT in SOD CHLORIDE 0.9% 99 ML IV (22:23)
[2018-12-02] MEDS: ACETAMINOPHEN 650MG/20.3ML CUP NGT ×4 (00:45→17:27)
[2018-12-02] MEDS: DEXMEDETOMIDINE HCL 200 MCG in SOD CHLORIDE 0.9% 48 ML IV ×4 (01:18→21:31)
[2018-12-02] MEDS: FENTAnyl (DRIP) 1000 mcg/100mL 100 ML IV ×3 (02:55→22:57)
[2018-12-02 04:39] LABS: ADD MAN DIFF? NO
[2018-12-02 04:42] LABS: WHITE BLOOD COUNT 9.5 10^3/ul (4.8-10.8)
[2018-12-02 04:42] LABS: ABNORMAL IP MESSAGE 1; BASOPHIL # 0.1 10^3/ul (0.0-0.1); BASOPHILS % 0.6 % (0.0-2.0); EOSINOPHILS # 0.3 10^3/ul (0.0-0.5); EOSINOPHILS % 3.1 % (0.0-7.0); HEMATOCRIT 21.3 % (37.0-47.0); LYMPHOCYTES # 0.8 10^3/ul (0.8-2.9); LYMPHOCYTES % 8.4 % (15.0-51.0); MEAN CORPUSCULAR HEMOGLOBIN 33.2 pg (29.0-33.0); MEAN CORPUSCULAR HGB CONC 30.5 g/dl (32.0-37.0); MEAN CORPUSCULAR VOLUME 108.7 fl (82.0-101.0); MEAN PLATELET VOLUME 10.4 fl (7.4-10.4); MONOCYTE # 0.9 10^3/ul (0.3-0.9); MONOCYTES % 9.3 % (0.0-11.0); NEUTROPHIL # 7.4 10^3/ul (1.6-7.5); NEUTROPHILS % 77.4 % (39.0-77.0); PLATELET COUNT 258 10^3/UL (140-415); RED BLOOD COUNT 1.96 10^6/ul (4.20-5.40)
[2018-12-02 04:51] LABS: POSITIVE DIFF @See below
[2018-12-02 04:52] LABS: HEMOGLOBIN 6.5 g/dl (12.0-16.0)
[2018-12-02 05:04] LABS: ANION GAP 8 (5-13); BLOOD UREA NITROGEN 27 mg/dl (7-20); CALCIUM 9.6 mg/dl (8.4-10.2); CARBON DIOXIDE 23 mmol/L (21-31); CHLORIDE 105 mmol/L (97-110); Estimated GFR 9 mL/min (>60); GLUCOSE 113 mg/dl (70-220); MAGNESIUM 1.8 mg/dl (1.7-2.5); PHOSPHORUS 3.4 mg/dl (2.5-4.9); POTASSIUM 4.4 mmol/L (3.5-5.1); SODIUM 136 mmol/L (135-144)
[2018-12-02] MEDS: LEVOTHYROXINE 100 MCG VIAL IV (05:49)
[2018-12-02] MEDS: METOCLOPRAMIDE 10 MG INJ IV ×3 (05:50→20:23)
[2018-12-02] MEDS: GABAPENTIN (50 MG/ML PO SYG) NGT ×3 (05:50→20:24)
[2018-12-02] MEDS: FAMOTIDINE 20 MG INJ IV (05:52)
[2018-12-02] MEDS: SEVELAMER CARBONATE 2.4 GM PKT PO ×3 (07:35→17:28)
[2018-12-02] MEDS: SEVELAMER CARBONATE 0.8 GM PKT PO ×3 (07:35→17:28)
[2018-12-02] MEDS: CALCIUM ACETATE 667 MG CAP NGT ×3 (07:35→17:28)
[2018-12-02] MEDS: LANTHANUM 500 MG CHEW NGT ×3 (07:35→17:28)
[2018-12-02 08:26] LABS: AADO2 Arterial 45.7 mmHg (7.0-24.0); Allen Test ACCEPTAB; Arterial Base Excess -4.5 mmol/L (-3.0-3); Arterial Blood Gas Oxygen Sat 98.8 mmHG (95.0-98.0); Arterial COHb 1.2 % (0.0-3.0); Arterial Fraction of Oxyhgb 97.2 % (93.0-99.0); Arterial HCO3 19.8 mmol/L (22.0-26.0); Arterial MetHb 0.4 % (0.0-1.5); Arterial pCO2 32.6 mmhg (35-45); MODE VENT - AC; Site Right Radial
[2018-12-02] MEDS: SERTRALINE 100 MG TAB NGT (08:38)
[2018-12-02] MEDS: FLUCONAZOLE 100 MG TAB NGT (08:38)
[2018-12-02] MEDS: MIDODRINE 5 MG TAB PO ×3 (08:38→20:24)
[2018-12-02] MEDS: BUSPIRONE 5 MG TAB NGT ×3 (08:38→20:23)
[2018-12-02] MEDS: ACCU-CHEK XX ×13 (11:00→23:00)
[2018-12-02] MEDS: TPN 1,000 ML IV (12:43)
[2018-12-03] MEDS: ACCU-CHEK XX ×26 (01:00→22:54)
[2018-12-03] MEDS: ACETAMINOPHEN 650MG/20.3ML CUP NGT ×4 (01:16→17:14)
[2018-12-03] MEDS: DEXMEDETOMIDINE HCL 200 MCG in SOD CHLORIDE 0.9% 48 ML IV ×7 (02:21→23:04)
[2018-12-03 05:11] LABS: ADD MAN DIFF? NO
[2018-12-03] MEDS: GABAPENTIN (50 MG/ML PO SYG) NGT ×3 (05:18→22:00)
[2018-12-03] MEDS: LEVOTHYROXINE 100 MCG VIAL IV (05:19)
[2018-12-03] MEDS: METOCLOPRAMIDE 10 MG INJ IV ×3 (05:19→22:04)
[2018-12-03] MEDS: FAMOTIDINE 20 MG INJ IV (05:20)
[2018-12-03 05:21] LABS: WHITE BLOOD COUNT 8.7 10^3/ul (4.8-10.8)
[2018-12-03 05:21] LABS: ABNORMAL IP MESSAGE 1; BASOPHIL # 0.1 10^3/ul (0.0-0.1); BASOPHILS % 0.7 % (0.0-2.0); EOSINOPHILS # 0.4 10^3/ul (0.0-0.5); EOSINOPHILS % 4.3 % (0.0-7.0); HEMATOCRIT 20.7 % (37.0-47.0); LYMPHOCYTES # 0.9 10^3/ul (0.8-2.9); LYMPHOCYTES % 9.9 % (15.0-51.0); MEAN CORPUSCULAR HEMOGLOBIN 33.2 pg (29.0-33.0); MEAN CORPUSCULAR VOLUME 110.7 fl (82.0-101.0); MEAN PLATELET VOLUME 10.5 fl (7.4-10.4); MONOCYTE # 0.8 10^3/ul (0.3-0.9); MONOCYTES % 8.9 % (0.0-11.0); NEUTROPHIL # 6.5 10^3/ul (1.6-7.5); NEUTROPHILS % 75.3 % (39.0-77.0); PLATELET COUNT 254 10^3/UL (140-415); RED BLOOD COUNT 1.87 10^6/ul (4.20-5.40); RED CELL DISTRIBUTION WIDTH 16.7 % (11.5-14.5)
[2018-12-03 05:43] LABS: ANION GAP 11 (5-13); BLOOD UREA NITROGEN 35 mg/dl (7-20); CALCIUM 10.3 mg/dl (8.4-10.2); CARBON DIOXIDE 20 mmol/L (21-31); CHLORIDE 104 mmol/L (97-110); CREATININE 6.42 mg/dl (0.44-1.00); Estimated GFR 7 mL/min (>60); GLUCOSE 117 mg/dl (70-220); PHOSPHORUS 3.5 mg/dl (2.5-4.9); POTASSIUM 4.1 mmol/L (3.5-5.1); SODIUM 135 mmol/L (135-144)
[2018-12-03 05:56] LABS: PREALBUMIN 10.3 mg/dl (17.6-36.0)
[2018-12-03 06:17] LABS: POSITIVE DIFF @See below
[2018-12-03 06:19] LABS: HEMOGLOBIN 6.2 g/dl (12.0-16.0)
[2018-12-03] MEDS: TPN 1,000 ML IV (06:54)
[2018-12-03] MEDS: CALCIUM ACETATE 667 MG CAP NGT ×3 (07:35→16:57)
[2018-12-03] MEDS: LANTHANUM 500 MG CHEW NGT ×3 (07:35→16:57)
[2018-12-03] MEDS: SEVELAMER CARBONATE 0.8 GM PKT PO ×3 (07:35→16:58)
[2018-12-03] MEDS: SEVELAMER CARBONATE 2.4 GM PKT PO ×3 (07:35→16:58)
[2018-12-03] MEDS: HYDROCORTISONE 100 MG INJ IV ×3 (07:44→22:04)
[2018-12-03 07:55] LABS: IRON 31 ug/dl (35-150)
[2018-12-03 08:04] LABS: % IRON SATURATION 22 % SAT (22-52); TOTAL IRON BINDING CAPACITY 142 ug/dl (241-421)
[2018-12-03] MEDS: BUSPIRONE 5 MG TAB NGT ×3 (08:08→20:59)
[2018-12-03] MEDS: SERTRALINE 100 MG TAB NGT (08:08)
[2018-12-03] MEDS: MIDODRINE 5 MG TAB PO ×3 (08:08→20:59)
[2018-12-03] MEDS: FENTAnyl (DRIP) 1000 mcg/100mL 100 ML IV ×2 (09:32→18:55)
[2018-12-03] MEDS: HEPARIN 1000 UNITS/ML 10 ML INJ CATHETER (13:41)
[2018-12-03] MEDS: EPOETIN ALFA-EPBX (ESRD) 4,000 UNIT/ML VIAL SC (16:23)
[2018-12-03] MEDS: CEFAZOLIN 2 GM/50 ML (PMX) 50 ML IVPB (19:43)
[2018-12-03] MEDS ORDERED: PROPOFOL 20 ML (20:08)
[2018-12-04] MEDS: ACCU-CHEK XX ×25 (00:09→23:54)
[2018-12-04] MEDS: DEXMEDETOMIDINE HCL 200 MCG in SOD CHLORIDE 0.9% 48 ML IV ×7 (02:08→22:13)
[2018-12-04] MEDS: TPN 1,000 ML IV ×2 (02:24→22:23)
[2018-12-04] MEDS: FENTAnyl (DRIP) 1000 mcg/100mL 100 ML IV ×3 (04:34→23:45)
[2018-12-04 05:10] LABS: ADD MAN DIFF? NO
[2018-12-04 05:16] LABS: ABNORMAL IP MESSAGE 1; BASOPHILS % 0.1 % (0.0-2.0); HEMATOCRIT 21.7 % (37.0-47.0); LYMPHOCYTES # 0.5 10^3/ul (0.8-2.9); LYMPHOCYTES % 5.2 % (15.0-51.0); MEAN CORPUSCULAR HGB CONC 30.4 g/dl (32.0-37.0); MEAN CORPUSCULAR VOLUME 108.5 fl (82.0-101.0); MEAN PLATELET VOLUME 11.1 fl (7.4-10.4); MONOCYTE # 0.3 10^3/ul (0.3-0.9); MONOCYTES % 2.8 % (0.0-11.0); NEUTROPHIL # 8.5 10^3/ul (1.6-7.5); NEUTROPHILS % 90.9 % (39.0-77.0); PLATELET COUNT 235 10^3/UL (140-415); RED CELL DISTRIBUTION WIDTH 16.3 % (11.5-14.5)
[2018-12-04 05:16] LABS: WHITE BLOOD COUNT 9.3 10^3/ul (4.8-10.8)
[2018-12-04 05:31] LABS: HEMOGLOBIN 6.6 g/dl (12.0-16.0); POSITIVE DIFF @See below
[2018-12-04] MEDS: HYDROCORTISONE 100 MG INJ IV ×3 (05:40→21:42)
[2018-12-04] MEDS: METOCLOPRAMIDE 10 MG INJ IV ×3 (05:40→21:42)
[2018-12-04] MEDS: GABAPENTIN (50 MG/ML PO SYG) NGT ×3 (05:40→21:43)
[2018-12-04] MEDS: LEVOTHYROXINE 100 MCG VIAL IV (05:40)
[2018-12-04] MEDS: FAMOTIDINE 20 MG INJ IV (05:40)
[2018-12-04 05:42] LABS: ANION GAP 11 (5-13); BLOOD UREA NITROGEN 32 mg/dl (7-20); CALCIUM 10.5 mg/dl (8.4-10.2); CARBON DIOXIDE 23 mmol/L (21-31); CHLORIDE 103 mmol/L (97-110); CREATININE 4.95 mg/dl (0.44-1.00); Estimated GFR 10 mL/min (>60); GLUCOSE 171 mg/dl (70-220); POTASSIUM 4.5 mmol/L (3.5-5.1); SODIUM 137 mmol/L (135-144)
[2018-12-04] MEDS: ACETAMINOPHEN 650MG/20.3ML CUP NGT ×5 (05:45→23:41)
[2018-12-04] MEDS: LANTHANUM 500 MG CHEW NGT ×3 (07:35→15:56)
[2018-12-04] MEDS: SEVELAMER CARBONATE 0.8 GM PKT PO ×3 (07:35→15:57)
[2018-12-04] MEDS: CALCIUM ACETATE 667 MG CAP NGT ×3 (07:35→15:57)
[2018-12-04] MEDS: SEVELAMER CARBONATE 2.4 GM PKT PO ×3 (07:35→15:57)
[2018-12-04 08:07] LABS: IRON 45 ug/dl (35-150)
[2018-12-04 08:16] LABS: % IRON SATURATION 30 % SAT (22-52); TOTAL IRON BINDING CAPACITY 151 ug/dl (241-421)
[2018-12-04] MEDS: MIDODRINE 5 MG TAB PO ×3 (09:00→21:04)
[2018-12-04] MEDS: BUSPIRONE 5 MG TAB NGT ×3 (09:15→21:03)
[2018-12-04] MEDS: SERTRALINE 100 MG TAB NGT (09:15)
[2018-12-04] MEDS: INSULIN HUMAN REGULAR 100 UNIT in SOD CHLORIDE 0.9% 99 ML IV (09:26)
[2018-12-04] MEDS: DIAZEPAM 5 MG TAB PO ×2 (15:56→21:43)
[2018-12-04] MEDS ORDERED: DIAZEPAM 5 MG TAB PO (16:00)
[2018-12-05] MEDS: ACCU-CHEK XX ×23 (01:27→23:27)
[2018-12-05] MEDS: DEXMEDETOMIDINE HCL 200 MCG in SOD CHLORIDE 0.9% 48 ML IV ×4 (01:29→23:59)
[2018-12-05 03:56] LABS: ADD MAN DIFF? NO
[2018-12-05 04:21] LABS: MAGNESIUM 2.2 mg/dl (1.7-2.5)
[2018-12-05 04:21] LABS: PHOSPHORUS 3.6 mg/dl (2.5-4.9)
[2018-12-05 04:22] LABS: WHITE BLOOD COUNT 10.6 10^3/ul (4.8-10.8)
[2018-12-05 04:22] LABS: ABNORMAL IP MESSAGE 1; BASOPHILS % 0.2 % (0.0-2.0); HEMATOCRIT 23.3 % (37.0-47.0); HEMOGLOBIN 7.3 g/dl (12.0-16.0); LYMPHOCYTES # 0.6 10^3/ul (0.8-2.9); LYMPHOCYTES % 5.5 % (15.0-51.0); MEAN CORPUSCULAR HEMOGLOBIN 33.6 pg (29.0-33.0); MEAN CORPUSCULAR HGB CONC 31.3 g/dl (32.0-37.0); MEAN CORPUSCULAR VOLUME 107.4 fl (82.0-101.0); MONOCYTE # 0.3 10^3/ul (0.3-0.9); NEUTROPHIL # 9.5 10^3/ul (1.6-7.5); NEUTROPHILS % 88.9 % (39.0-77.0); NUCLEATED RED BLOOD CELLS% 0.2 /100WBC (0.0-0.0); PLATELET COUNT 251 10^3/UL (140-415); RED BLOOD COUNT 2.17 10^6/ul (4.20-5.40); RED CELL DISTRIBUTION WIDTH 16.1 % (11.5-14.5)
[2018-12-05 04:23] LABS: ANION GAP 11 (5-13); BLOOD UREA NITROGEN 42 mg/dl (7-20); CALCIUM 10.6 mg/dl (8.4-10.2); CARBON DIOXIDE 20 mmol/L (21-31); CHLORIDE 106 mmol/L (97-110); CREATININE 5.67 mg/dl (0.44-1.00); Estimated GFR 8 mL/min (>60); GLUCOSE 161 mg/dl (70-220); POSITIVE DIFF @See below; POTASSIUM 4.7 mmol/L (3.5-5.1); SODIUM 137 mmol/L (135-144)
[2018-12-05] MEDS: HYDROCORTISONE 100 MG INJ IV ×3 (05:32→21:11)
[2018-12-05] MEDS: METOCLOPRAMIDE 10 MG INJ IV ×3 (05:32→21:12)
[2018-12-05] MEDS: FAMOTIDINE 20 MG INJ IV (05:32)
[2018-12-05] MEDS: LEVOTHYROXINE 100 MCG VIAL IV (05:33)
[2018-12-05] MEDS: GABAPENTIN (50 MG/ML PO SYG) NGT ×3 (05:33→22:06)
[2018-12-05] MEDS: ACETAMINOPHEN 650MG/20.3ML CUP NGT ×3 (05:34→17:39)
[2018-12-05] MEDS: DIAZEPAM 5 MG TAB PO ×3 (05:34→21:12)
[2018-12-05] MEDS: SEVELAMER CARBONATE 0.8 GM PKT PO ×3 (07:35→16:36)
[2018-12-05] MEDS: SEVELAMER CARBONATE 2.4 GM PKT PO ×3 (08:16→16:35)
[2018-12-05] MEDS: CALCIUM ACETATE 667 MG CAP NGT ×3 (08:17→16:36)
[2018-12-05] MEDS: SERTRALINE 100 MG TAB NGT (08:17)
[2018-12-05] MEDS: MIDODRINE 5 MG TAB PO ×3 (08:17→21:11)
[2018-12-05] MEDS: LANTHANUM 500 MG CHEW NGT ×3 (08:17→16:35)
[2018-12-05] MEDS: BUSPIRONE 5 MG TAB NGT ×3 (08:18→21:12)
[2018-12-05] MEDS: FENTAnyl (DRIP) 1000 mcg/100mL 100 ML IV (09:34)
[2018-12-05] MEDS: HEPARIN 1000 UNITS/ML 10 ML INJ CATHETER (10:29)
[2018-12-05] MEDS: INSULIN HUMAN REGULAR 100 UNIT in SOD CHLORIDE 0.9% 99 ML IV (11:17)
[2018-12-05] MEDS: LORAZEPAM 2 MG INJ IV ×3 (11:22→21:52)
[2018-12-05] MEDS: EPOETIN ALFA-EPBX (ESRD) 4,000 UNIT/ML VIAL SC (16:38)
[2018-12-05] MEDS: HYDROmorphONE 0.5 MG/0.5 ML SYG IV (20:38)
[2018-12-05] MEDS: TPN 1,000 ML IV (21:12)
[2018-12-06] MEDS: ACETAMINOPHEN 650MG/20.3ML CUP NGT ×4 (00:20→17:44)
[2018-12-06] MEDS: ACCU-CHEK XX ×24 (00:21→23:04)
[2018-12-06] MEDS: DEXMEDETOMIDINE HCL 200 MCG in SOD CHLORIDE 0.9% 48 ML IV (02:06)
[2018-12-06 05:17] LABS: ADD MAN DIFF? NO
[2018-12-06 05:20] LABS: WHITE BLOOD COUNT 14.7 10^3/ul (4.8-10.8)
[2018-12-06 05:20] LABS: ABNORMAL IP MESSAGE 1; BASOPHILS % 0.1 % (0.0-2.0); HEMATOCRIT 22.2 % (37.0-47.0); LYMPHOCYTES # 0.6 10^3/ul (0.8-2.9); LYMPHOCYTES % 3.9 % (15.0-51.0); MEAN CORPUSCULAR HEMOGLOBIN 32.2 pg (29.0-33.0); MEAN CORPUSCULAR HGB CONC 29.7 g/dl (32.0-37.0); MEAN CORPUSCULAR VOLUME 108.3 fl (82.0-101.0); MEAN PLATELET VOLUME 10.4 fl (7.4-10.4); MONOCYTES % 7.1 % (0.0-11.0); NEUTROPHIL # 12.7 10^3/ul (1.6-7.5); NEUTROPHILS % 86.8 % (39.0-77.0); NUCLEATED RED BLOOD CELLS # 0.1 10^3/ul (0.0-0.0); NUCLEATED RED BLOOD CELLS% 0.4 /100WBC (0.0-0.0); PLATELET COUNT 304 10^3/UL (140-415); RED BLOOD COUNT 2.05 10^6/ul (4.20-5.40); RED CELL DISTRIBUTION WIDTH 16.5 % (11.5-14.5)
[2018-12-06 05:36] LABS: HEMOGLOBIN 6.6 g/dl (12.0-16.0); POSITIVE DIFF @See below
[2018-12-06 05:38] LABS: ANION GAP 9 (5-13); BLOOD UREA NITROGEN 39 mg/dl (7-20); CALCIUM 10.2 mg/dl (8.4-10.2); CARBON DIOXIDE 23 mmol/L (21-31); CHLORIDE 103 mmol/L (97-110); CREATININE 4.65 mg/dl (0.44-1.00); Estimated GFR 10 mL/min (>60); GLUCOSE 107 mg/dl (70-220); SODIUM 135 mmol/L (135-144)
[2018-12-06] MEDS: METOCLOPRAMIDE 10 MG INJ IV ×3 (05:39→21:38)
[2018-12-06] MEDS: GABAPENTIN (50 MG/ML PO SYG) NGT ×3 (05:39→21:40)
[2018-12-06] MEDS: DIAZEPAM 5 MG TAB PO ×3 (05:39→21:29)
[2018-12-06 05:40] LABS: PHOSPHORUS 2.7 mg/dl (2.5-4.9)
[2018-12-06 05:40] LABS: MAGNESIUM 2.2 mg/dl (1.7-2.5)
[2018-12-06] MEDS: LEVOTHYROXINE 100 MCG VIAL IV (05:40)
[2018-12-06] MEDS: HYDROCORTISONE 100 MG INJ IV ×3 (05:40→21:30)
[2018-12-06] MEDS: FAMOTIDINE 20 MG INJ IV (05:44)
[2018-12-06] MEDS: FENTAnyl (DRIP) 1000 mcg/100mL 100 ML IV ×2 (06:01→17:46)
[2018-12-06] MEDS: LORAZEPAM 2 MG INJ IV ×3 (08:09→21:31)
[2018-12-06] MEDS: MIDODRINE 5 MG TAB PO ×3 (08:31→20:21)
[2018-12-06] MEDS: SEVELAMER CARBONATE 2.4 GM PKT PO ×3 (08:31→17:44)
[2018-12-06] MEDS: LANTHANUM 500 MG CHEW NGT ×3 (08:31→17:44)
[2018-12-06] MEDS: SERTRALINE 100 MG TAB NGT (08:31)
[2018-12-06] MEDS: BUSPIRONE 5 MG TAB NGT ×3 (08:31→20:21)
[2018-12-06] MEDS: SEVELAMER CARBONATE 0.8 GM PKT PO ×3 (08:31→17:44)
[2018-12-06] MEDS: CALCIUM ACETATE 667 MG CAP NGT ×3 (08:32→17:45)
[2018-12-06] MEDS: INSULIN HUMAN REGULAR 100 UNIT in SOD CHLORIDE 0.9% 99 ML IV (17:47)
[2018-12-07] MEDS: ACETAMINOPHEN 650MG/20.3ML CUP NGT ×3 (00:41→12:33)
[2018-12-07] MEDS: FENTAnyl (DRIP) 1000 mcg/100mL 100 ML IV (00:59)
[2018-12-07] MEDS: ACCU-CHEK XX ×17 (01:09→23:00)
[2018-12-07] MEDS: LORAZEPAM 2 MG INJ IV (02:54)
[2018-12-07 04:37] LABS: ADD MAN DIFF? NO
[2018-12-07 04:42] LABS: ABNORMAL IP MESSAGE 1; BASOPHILS % 0.1 % (0.0-2.0); HEMATOCRIT 21.8 % (37.0-47.0); LYMPHOCYTES # 0.7 10^3/ul (0.8-2.9); LYMPHOCYTES % 3.8 % (15.0-51.0); MEAN CORPUSCULAR HEMOGLOBIN 33.3 pg (29.0-33.0); MEAN CORPUSCULAR HGB CONC 30.7 g/dl (32.0-37.0); MEAN CORPUSCULAR VOLUME 108.5 fl (82.0-101.0); MEAN PLATELET VOLUME 10.5 fl (7.4-10.4); MONOCYTES % 5.6 % (0.0-11.0); NEUTROPHIL # 15.1 10^3/ul (1.6-7.5); NEUTROPHILS % 88.5 % (39.0-77.0); NUCLEATED RED BLOOD CELLS # 0.1 10^3/ul (0.0-0.0); NUCLEATED RED BLOOD CELLS% 0.4 /100WBC (0.0-0.0); PLATELET COUNT 327 10^3/UL (140-415); RED BLOOD COUNT 2.01 10^6/ul (4.20-5.40); RED CELL DISTRIBUTION WIDTH 16.7 % (11.5-14.5)
[2018-12-07 04:42] LABS: WHITE BLOOD COUNT 17.1 10^3/ul (4.8-10.8)
[2018-12-07 05:16] LABS: ANION GAP 13 (5-13); BLOOD UREA NITROGEN 46 mg/dl (7-20); CALCIUM 10.4 mg/dl (8.4-10.2); CARBON DIOXIDE 22 mmol/L (21-31); CHLORIDE 101 mmol/L (97-110); CREATININE 5.42 mg/dl (0.44-1.00); Estimated GFR 9 mL/min (>60); GLUCOSE 128 mg/dl (70-220); MAGNESIUM 2.3 mg/dl (1.7-2.5); POTASSIUM 4.6 mmol/L (3.5-5.1); SODIUM 136 mmol/L (135-144)
[2018-12-07 05:16] LABS: PHOSPHORUS 3.2 mg/dl (2.5-4.9)
[2018-12-07] MEDS: GABAPENTIN (50 MG/ML PO SYG) NGT ×2 (05:38→14:47)
[2018-12-07] MEDS: DIAZEPAM 5 MG TAB PO ×2 (05:38→14:47)
[2018-12-07] MEDS: HYDROCORTISONE 100 MG INJ IV ×3 (05:38→21:13)
[2018-12-07] MEDS: FAMOTIDINE 20 MG INJ IV (05:38)
[2018-12-07] MEDS: LEVOTHYROXINE 100 MCG VIAL IV (05:39)
[2018-12-07 05:53] LABS: HEMOGLOBIN 6.7 g/dl (12.0-16.0); POSITIVE DIFF @See below
[2018-12-07] MEDS: METOCLOPRAMIDE 10 MG INJ IV (05:56)
[2018-12-07] MEDS: CALCIUM ACETATE 667 MG CAP NGT ×2 (09:03→12:34)
[2018-12-07] MEDS: BUSPIRONE 5 MG TAB NGT ×2 (09:03→12:34)
[2018-12-07] MEDS: SEVELAMER CARBONATE 2.4 GM PKT PO ×2 (09:03→12:34)
[2018-12-07] MEDS: MIDODRINE 5 MG TAB PO ×2 (09:03→12:35)
[2018-12-07] MEDS: LANTHANUM 500 MG CHEW NGT ×2 (09:03→15:12)
[2018-12-07] MEDS: SERTRALINE 100 MG TAB NGT (09:03)
[2018-12-07] MEDS: SEVELAMER CARBONATE 0.8 GM PKT PO ×2 (09:04→12:34)
[2018-12-07] MEDS ORDERED: FLUCONAZOLE 100 MG TAB PO (15:00)
[2018-12-07] MEDS: NPH, HUMAN INSULIN ISOPHANE 3ML VIAL SC ×2 (15:04→21:25)
[2018-12-07] MEDS: ALTEPLASE (CATHFLO) 2 MG INJ CATHETER (17:11)
[2018-12-07] MEDS: CALCIUM ACETATE 667 MG CAP PEG (17:35)
[2018-12-07] MEDS: LANTHANUM 500 MG CHEW PEG (17:35)
[2018-12-07] MEDS: SEVELAMER CARBONATE 0.8 GM PKT GTB (17:35)
[2018-12-07] MEDS: SEVELAMER CARBONATE 2.4 GM PKT GTB (17:35)
[2018-12-07] MEDS: ACETAMINOPHEN 650MG/20.3ML CUP PEG (18:00)
[2018-12-07] MEDS: HEPARIN 1000 UNITS/ML 10 ML INJ CATHETER (18:55)
[2018-12-07] MEDS: HYDROmorphONE 0.5 MG/0.5 ML SYG IV ×2 (20:08→23:09)
[2018-12-07] MEDS: BUSPIRONE 5 MG TAB PEG (21:13)
[2018-12-07] MEDS: GABAPENTIN (50 MG/ML PO SYG) PEG (21:18)
[2018-12-07] MEDS: DIAZEPAM 5 MG TAB PEG (21:22)
[2018-12-07] MEDS: MIDODRINE 5 MG TAB PEG (21:22)
[2018-12-07] MEDS: FLUCONAZOLE 100 MG TAB PEG (21:31)
[2018-12-08] MEDS: ACCU-CHEK XX ×6 (01:00→21:00)
[2018-12-08] MEDS: LORAZEPAM 2 MG INJ IV ×2 (01:52→21:34)
[2018-12-08] MEDS: ACETAMINOPHEN 650MG/20.3ML CUP PEG ×4 (01:53→18:00)
[2018-12-08] MEDS: DIPHENHYDRAMINE 50 MG CAP PEG (04:06)
[2018-12-08] MEDS: HYDROmorphONE 0.5 MG/0.5 ML SYG IV ×4 (04:06→15:01)
[2018-12-08] MEDS: INSULIN ASPART [NOVOLOG] 3 ML PEN SC ×6 (04:55→21:00)
[2018-12-08] MEDS: FAMOTIDINE 20 MG INJ IV (05:00)
[2018-12-08] MEDS: LEVOTHYROXINE 100 MCG VIAL IV (05:00)
[2018-12-08] MEDS: DIAZEPAM 5 MG TAB PEG ×3 (05:03→21:34)
[2018-12-08] MEDS: HYDROCORTISONE 100 MG INJ IV (05:04)
[2018-12-08] MEDS: GABAPENTIN (50 MG/ML PO SYG) PEG ×3 (05:04→22:00)
[2018-12-08] MEDS: NPH, HUMAN INSULIN ISOPHANE 3ML VIAL SC ×3 (05:07→23:31)
[2018-12-08 06:06] LABS: ADD MAN DIFF? NO
[2018-12-08 06:14] LABS: ABNORMAL IP MESSAGE 1; BASOPHILS % 0.1 % (0.0-2.0); HEMATOCRIT 22.1 % (37.0-47.0); LYMPHOCYTES # 0.6 10^3/ul (0.8-2.9); MEAN CORPUSCULAR HGB CONC 31.2 g/dl (32.0-37.0); MEAN CORPUSCULAR VOLUME 108.9 fl (82.0-101.0); MEAN PLATELET VOLUME 10.3 fl (7.4-10.4); MONOCYTE # 0.9 10^3/ul (0.3-0.9); MONOCYTES % 4.8 % (0.0-11.0); NEUTROPHIL # 17.1 10^3/ul (1.6-7.5); NEUTROPHILS % 90.9 % (39.0-77.0); NUCLEATED RED BLOOD CELLS% 0.1 /100WBC (0.0-0.0); PLATELET COUNT 396 10^3/UL (140-415); RED BLOOD COUNT 2.03 10^6/ul (4.20-5.40); RED CELL DISTRIBUTION WIDTH 16.9 % (11.5-14.5)
[2018-12-08 06:14] LABS: WHITE BLOOD COUNT 18.8 10^3/ul (4.8-10.8)
[2018-12-08 06:40] LABS: ANION GAP 14 (5-13); BLOOD UREA NITROGEN 37 mg/dl (7-20); CALCIUM 10.2 mg/dl (8.4-10.2); CARBON DIOXIDE 23 mmol/L (21-31); CHLORIDE 99 mmol/L (97-110); Estimated GFR 11 mL/min (>60); GLUCOSE 330 mg/dl (70-220); SODIUM 136 mmol/L (135-144)
[2018-12-08 06:51] LABS: POSITIVE DIFF @See below
[2018-12-08 06:52] LABS: HEMOGLOBIN 6.9 g/dl (12.0-16.0)
[2018-12-08] MEDS: LANTHANUM 500 MG CHEW PEG ×3 (07:46→17:35)
[2018-12-08] MEDS: SEVELAMER CARBONATE 2.4 GM PKT GTB ×3 (07:47→17:35)
[2018-12-08] MEDS: CALCIUM ACETATE 667 MG CAP PEG ×3 (07:47→17:35)
[2018-12-08] MEDS: MIDODRINE 5 MG TAB PEG ×3 (09:00→21:29)
[2018-12-08] MEDS: SEVELAMER CARBONATE 0.8 GM PKT GTB ×3 (10:56→17:35)
[2018-12-08] MEDS: SERTRALINE 100 MG TAB PEG (10:56)
[2018-12-08] MEDS: FLUCONAZOLE 100 MG TAB PEG (10:56)
[2018-12-08] MEDS: BUSPIRONE 5 MG TAB PEG ×3 (10:57→21:28)
[2018-12-08] MEDS ORDERED: VANCOMYCIN IV PER PHARMACY XX (12:00)
[2018-12-08] MEDS: LORAZEPAM 0.5 MG TAB NGT ×3 (13:53→14:39)
[2018-12-08] MEDS: HYDROCORTISONE 5 MG TAB NGT ×2 (13:59→21:28)
[2018-12-08] MEDS: MEROPENEM 500MG/50 ML (PMX) 50 ML IVPB ×2 (14:42→21:28)
[2018-12-08] MEDS: ONDANSETRON 4 MG INJ IV (15:12)
[2018-12-08] MEDS: VANCOMYCIN HCL 2 GM in SOD CHLORIDE 0.9% 500 ML IVPB (16:15)
[2018-12-08] MEDS: DEXTROSE 50% 50 ML SYRINGE IV (21:06)
[2018-12-08] MEDS: IOHEXOL 14.3 MG(I)/ML (ADULT) BTL PO (22:00)
[2018-12-08] MEDS: DEXTROSE 10% 1,000 ML IV (23:32)
[2018-12-08] MEDS: EPOETIN ALFA-EPBX (ESRD) 4,000 UNIT/ML VIAL SC (23:47)
[2018-12-09] MEDS: INSULIN ASPART [NOVOLOG] 3 ML PEN SC ×6 (00:17→22:01)
[2018-12-09] MEDS: ACCU-CHEK XX ×6 (00:18→21:55)
[2018-12-09] MEDS: LORAZEPAM 2 MG INJ IV ×3 (03:20→11:55)
[2018-12-09] MEDS: HYDROmorphONE 0.5 MG/0.5 ML SYG IV ×3 (04:43→16:30)
[2018-12-09 05:24] LABS: ADD MAN DIFF? NO
[2018-12-09 05:26] LABS: WHITE BLOOD COUNT 17.4 10^3/ul (4.8-10.8)
[2018-12-09 05:26] LABS: BASOPHILS % 0.1 % (0.0-2.0); EOSINOPHILS # 0.2 10^3/ul (0.0-0.5); EOSINOPHILS % 1.2 % (0.0-7.0); HEMATOCRIT 23.5 % (37.0-47.0); HEMOGLOBIN 7.4 g/dl (12.0-16.0); LYMPHOCYTES % 5.5 % (15.0-51.0); MEAN CORPUSCULAR HEMOGLOBIN 33.8 pg (29.0-33.0); MEAN CORPUSCULAR HGB CONC 31.5 g/dl (32.0-37.0); MEAN CORPUSCULAR VOLUME 107.3 fl (82.0-101.0); MEAN PLATELET VOLUME 10.3 fl (7.4-10.4); MONOCYTE # 1.4 10^3/ul (0.3-0.9); MONOCYTES % 7.9 % (0.0-11.0); NEUTROPHIL # 14.7 10^3/ul (1.6-7.5); NEUTROPHILS % 84.2 % (39.0-77.0); NUCLEATED RED BLOOD CELLS% 0.2 /100WBC (0.0-0.0); PLATELET COUNT 397 10^3/UL (140-415); RED BLOOD COUNT 2.19 10^6/ul (4.20-5.40); RED CELL DISTRIBUTION WIDTH 17.4 % (11.5-14.5)
[2018-12-09 05:56] LABS: ANION GAP 12 (5-13); BLOOD UREA NITROGEN 44 mg/dl (7-20); CALCIUM 10.1 mg/dl (8.4-10.2); CARBON DIOXIDE 23 mmol/L (21-31); CHLORIDE 100 mmol/L (97-110); CREATININE 5.22 mg/dl (0.44-1.00); Estimated GFR 9 mL/min (>60); GLUCOSE 67 mg/dl (70-220); POTASSIUM 4.4 mmol/L (3.5-5.1); SODIUM 135 mmol/L (135-144)
[2018-12-09] MEDS: GABAPENTIN (50 MG/ML PO SYG) PEG ×3 (06:00→22:10)
[2018-12-09] MEDS: ACETAMINOPHEN 650MG/20.3ML CUP PEG ×5 (06:00→23:21)
[2018-12-09] MEDS: DIAZEPAM 5 MG TAB PEG ×3 (06:00→22:02)
[2018-12-09] MEDS: LEVOTHYROXINE 100 MCG VIAL IV (06:29)
[2018-12-09] MEDS: DEXTROSE 50% 50 ML SYRINGE IV ×2 (06:36→11:57)
[2018-12-09] MEDS: FAMOTIDINE 20 MG INJ IV (06:39)
[2018-12-09] MEDS: NPH, HUMAN INSULIN ISOPHANE 3ML VIAL SC ×3 (06:42→22:00)
[2018-12-09] MEDS: LANTHANUM 500 MG CHEW PEG ×3 (08:35→18:58)
[2018-12-09] MEDS: BUSPIRONE 5 MG TAB PEG ×3 (08:35→22:01)
[2018-12-09] MEDS: SERTRALINE 100 MG TAB PEG (08:35)
[2018-12-09] MEDS: SEVELAMER CARBONATE 2.4 GM PKT GTB ×3 (08:35→18:59)
[2018-12-09] MEDS: HYDROCORTISONE 5 MG TAB NGT ×3 (08:35→22:07)
[2018-12-09] MEDS: FLUCONAZOLE 100 MG TAB PEG (08:35)
[2018-12-09] MEDS: SEVELAMER CARBONATE 0.8 GM PKT GTB ×3 (08:36→18:58)
[2018-12-09] MEDS: MIDODRINE 5 MG TAB PEG ×3 (08:37→21:00)
[2018-12-09] MEDS: CALCIUM ACETATE 667 MG CAP PEG ×3 (08:39→18:59)
[2018-12-09] MEDS: MEROPENEM 500MG/50 ML (PMX) 50 ML IVPB ×2 (08:58→22:10)
[2018-12-09] MEDS: metroNIDAZOLE 500 MG TAB PO ×2 (13:58→22:02)
[2018-12-09] MEDS: DIPHENHYDRAMINE 50 MG CAP PEG (14:09)
[2018-12-09] MEDS: FENTAnyl (DRIP) 1000 mcg/100mL 100 ML IV (14:58)
[2018-12-09 16:37] LABS: AADO2 Arterial 51.7 mmHg (7.0-24.0); Allen Test ACCEPTAB; Arterial Base Excess -0.9 mmol/L (-3.0-3); Arterial Blood Gas Oxygen Sat 97.8 mmHG (95.0-98.0); Arterial COHb 0.7 % (0.0-3.0); Arterial Fraction of Oxyhgb 96.7 % (93.0-99.0); Arterial HCO3 24.4 mmol/L (22.0-26.0); Arterial MetHb 0.4 % (0.0-1.5); Arterial pCO2 43.2 mmhg (35-45); Blood Gas PS 10; MODE VENT - CPAP; Site Left Radial
[2018-12-09] MEDS: DEXTROSE 10% 1,000 ML IV (23:17)
[2018-12-10] MEDS: INSULIN ASPART [NOVOLOG] 3 ML PEN SC ×6 (01:00→21:00)
[2018-12-10] MEDS: ACCU-CHEK XX ×6 (01:00→21:00)
[2018-12-10] MEDS: FENTAnyl (DRIP) 1000 mcg/100mL 100 ML IV (05:20)
[2018-12-10] MEDS: ACETAMINOPHEN 650MG/20.3ML CUP PEG ×4 (05:21→23:19)
[2018-12-10] MEDS: LEVOTHYROXINE 100 MCG VIAL IV (05:21)
[2018-12-10] MEDS: FAMOTIDINE 20 MG INJ IV (05:21)
[2018-12-10 05:22] LABS: ADD MAN DIFF? NO
[2018-12-10 05:28] LABS: ABNORMAL IP MESSAGE 1; BASOPHILS % 0.1 % (0.0-2.0); EOSINOPHILS # 0.3 10^3/ul (0.0-0.5); EOSINOPHILS % 2.1 % (0.0-7.0); HEMATOCRIT 22.7 % (37.0-47.0); LYMPHOCYTES # 0.3 10^3/ul (0.8-2.9); LYMPHOCYTES % 2.3 % (15.0-51.0); MEAN CORPUSCULAR HEMOGLOBIN 33.2 pg (29.0-33.0); MEAN CORPUSCULAR HGB CONC 30.8 g/dl (32.0-37.0); MEAN CORPUSCULAR VOLUME 107.6 fl (82.0-101.0); MEAN PLATELET VOLUME 10.1 fl (7.4-10.4); MONOCYTE # 0.7 10^3/ul (0.3-0.9); MONOCYTES % 5.3 % (0.0-11.0); NEUTROPHIL # 11.7 10^3/ul (1.6-7.5); NEUTROPHILS % 89.3 % (39.0-77.0); PLATELET COUNT 318 10^3/UL (140-415); RED BLOOD COUNT 2.11 10^6/ul (4.20-5.40); RED CELL DISTRIBUTION WIDTH 17.3 % (11.5-14.5)
[2018-12-10 05:28] LABS: WHITE BLOOD COUNT 13.1 10^3/ul (4.8-10.8)
[2018-12-10] MEDS: GABAPENTIN (50 MG/ML PO SYG) PEG ×3 (05:32→21:18)
[2018-12-10] MEDS: DIAZEPAM 5 MG TAB PEG ×3 (05:36→21:20)
[2018-12-10] MEDS: metroNIDAZOLE 500 MG TAB PO ×3 (05:36→21:19)
[2018-12-10] MEDS: NPH, HUMAN INSULIN ISOPHANE 3ML VIAL SC ×3 (05:37→21:26)
[2018-12-10 06:03] LABS: ANION GAP 13 (5-13); BLOOD UREA NITROGEN 47 mg/dl (7-20); CALCIUM 9.3 mg/dl (8.4-10.2); CARBON DIOXIDE 20 mmol/L (21-31); CHLORIDE 99 mmol/L (97-110); CREATININE 5.57 mg/dl (0.44-1.00); Estimated GFR 8 mL/min (>60); GLUCOSE 130 mg/dl (70-220); POTASSIUM 4.6 mmol/L (3.5-5.1); SODIUM 132 mmol/L (135-144)
[2018-12-10 06:09] LABS: VANCOMYCIN,RANDOM 22.7 ug/ml
[2018-12-10 06:17] LABS: POSITIVE DIFF @See below
[2018-12-10] MEDS: LANTHANUM 500 MG CHEW PEG ×3 (08:33→18:00)
[2018-12-10] MEDS: BUSPIRONE 5 MG TAB PEG ×3 (08:33→21:19)
[2018-12-10] MEDS: SERTRALINE 100 MG TAB PEG (08:33)
[2018-12-10] MEDS: SEVELAMER CARBONATE 0.8 GM PKT GTB ×3 (08:33→18:00)
[2018-12-10] MEDS: HYDROCORTISONE 5 MG TAB NGT ×3 (08:33→21:19)
[2018-12-10] MEDS: MIDODRINE 5 MG TAB PEG ×3 (08:34→21:00)
[2018-12-10] MEDS: FLUCONAZOLE 100 MG TAB PEG (08:35)
[2018-12-10] MEDS: COLLAGENASE 5 GM (UD JAR) TOP (08:35)
[2018-12-10] MEDS: CALCIUM ACETATE 667 MG CAP PEG ×3 (08:36→18:00)
[2018-12-10] MEDS: SEVELAMER CARBONATE 2.4 GM PKT GTB ×3 (08:37→18:00)
[2018-12-10] MEDS: MEROPENEM 500MG/50 ML (PMX) 50 ML IVPB ×2 (08:43→21:19)
[2018-12-10] MEDS: HYDROmorphONE 0.5 MG/0.5 ML SYG IV ×2 (11:16→13:30)
[2018-12-10] MEDS: LORAZEPAM 2 MG INJ IV ×2 (13:30→22:03)
[2018-12-10] MEDS ORDERED: MIDAZOLAM 1 MG/ML 2 ML INJ (16:58)
[2018-12-10] MEDS ORDERED: CEFAZOLIN 1 GM INJ ×2 (17:12)
[2018-12-10] MEDS ORDERED: ROCURONIUM 50 MG INJ ×2 (17:12→17:16)
[2018-12-10] MEDS: BUPIVACAINE 0.25%/EPI (SDV) 30 ML INJ (17:20)
[2018-12-10] MEDS: EPOETIN ALFA-EPBX (ESRD) 4,000 UNIT/ML VIAL SC (19:56)
[2018-12-10] MEDS: DEXTROSE 10% 1,000 ML IV (23:30)
[2018-12-11] MEDS: INSULIN ASPART [NOVOLOG] 3 ML PEN SC ×6 (00:26→21:00)
[2018-12-11] MEDS: ACCU-CHEK XX ×6 (01:00→21:00)
[2018-12-11] MEDS: FENTAnyl (DRIP) 1000 mcg/100mL 100 ML IV (01:52)
[2018-12-11] MEDS: LORAZEPAM 2 MG INJ IV ×5 (02:06→21:23)
[2018-12-11] MEDS: HYDROmorphONE 0.5 MG/0.5 ML SYG IV ×4 (02:20→21:22)
[2018-12-11 05:09] LABS: ADD MAN DIFF? NO
[2018-12-11 05:17] LABS: WHITE BLOOD COUNT 14.5 10^3/ul (4.8-10.8)
[2018-12-11 05:17] LABS: BASOPHILS % 0.2 % (0.0-2.0); EOSINOPHILS # 0.3 10^3/ul (0.0-0.5); EOSINOPHILS % 2.1 % (0.0-7.0); HEMATOCRIT 27.3 % (37.0-47.0); HEMOGLOBIN 8.6 g/dl (12.0-16.0); LYMPHOCYTES # 0.9 10^3/ul (0.8-2.9); LYMPHOCYTES % 6.3 % (15.0-51.0); MEAN CORPUSCULAR HEMOGLOBIN 33.7 pg (29.0-33.0); MEAN CORPUSCULAR HGB CONC 31.5 g/dl (32.0-37.0); MEAN CORPUSCULAR VOLUME 107.1 fl (82.0-101.0); MEAN PLATELET VOLUME 10.1 fl (7.4-10.4); MONOCYTE # 1.4 10^3/ul (0.3-0.9); MONOCYTES % 9.4 % (0.0-11.0); NEUTROPHIL # 11.7 10^3/ul (1.6-7.5); NEUTROPHILS % 80.8 % (39.0-77.0); PLATELET COUNT 397 10^3/UL (140-415); RED BLOOD COUNT 2.55 10^6/ul (4.20-5.40); RED CELL DISTRIBUTION WIDTH 17.1 % (11.5-14.5)
[2018-12-11] MEDS: DIAZEPAM 5 MG TAB PEG ×3 (05:33→21:21)
[2018-12-11] MEDS: metroNIDAZOLE 500 MG TAB PO ×3 (05:33→21:22)
[2018-12-11] MEDS: FAMOTIDINE 20 MG INJ IV (05:33)
[2018-12-11] MEDS: GABAPENTIN (50 MG/ML PO SYG) PEG ×3 (05:34→21:21)
[2018-12-11] MEDS: LEVOTHYROXINE 100 MCG VIAL IV (05:35)
[2018-12-11] MEDS: ACETAMINOPHEN 650MG/20.3ML CUP PEG ×4 (05:35→23:49)
[2018-12-11] MEDS: NPH, HUMAN INSULIN ISOPHANE 3ML VIAL SC ×3 (05:38→21:30)
[2018-12-11 05:54] LABS: ANION GAP 11 (5-13); BLOOD UREA NITROGEN 35 mg/dl (7-20); CALCIUM 9.3 mg/dl (8.4-10.2); CARBON DIOXIDE 21 mmol/L (21-31); CHLORIDE 98 mmol/L (97-110); CREATININE 4.97 mg/dl (0.44-1.00); Estimated GFR 10 mL/min (>60); GLUCOSE 172 mg/dl (70-220); MAGNESIUM 2.2 mg/dl (1.7-2.5); PHOSPHORUS 3.3 mg/dl (2.5-4.9); POTASSIUM 4.1 mmol/L (3.5-5.1); SODIUM 130 mmol/L (135-144)
[2018-12-11] MEDS: SEVELAMER CARBONATE 0.8 GM PKT GTB ×3 (09:09→16:28)
[2018-12-11] MEDS: SEVELAMER CARBONATE 2.4 GM PKT GTB ×3 (09:09→16:28)
[2018-12-11] MEDS: MIDODRINE 5 MG TAB PEG ×3 (09:10→21:00)
[2018-12-11] MEDS: HYDROCORTISONE 5 MG TAB NGT ×3 (09:10→21:21)
[2018-12-11] MEDS: COLLAGENASE 5 GM (UD JAR) TOP (09:10)
[2018-12-11] MEDS: CALCIUM ACETATE 667 MG CAP PEG ×3 (09:10→16:29)
[2018-12-11] MEDS: SERTRALINE 100 MG TAB PEG (09:11)
[2018-12-11] MEDS: BUSPIRONE 5 MG TAB PEG ×3 (09:11→21:21)
[2018-12-11] MEDS: MEROPENEM 500MG/50 ML (PMX) 50 ML IVPB ×2 (09:11→21:22)
[2018-12-11] MEDS: LANTHANUM 500 MG CHEW PEG ×4 (09:11→16:29)
[2018-12-11 11:00] LABS: AADO2 Arterial 57.3 mmHg (7.0-24.0); Allen Test ACCEPTAB; Arterial Base Excess -7.1 mmol/L (-3.0-3); Arterial Blood Gas Oxygen Sat 97.7 mmHG (95.0-98.0); Arterial COHb 0.4 % (0.0-3.0); Arterial Fraction of Oxyhgb 97.1 % (93.0-99.0); Arterial MetHb 0.2 % (0.0-1.5); Arterial pCO2 40.6 mmhg (35-45); Blood Gas PS 10; MODE VENT - CPAP; Site Left Radial
[2018-12-11] MEDS ORDERED: NORepinephrine 8MG/250 ML (PMX 250 ML (12:44)
[2018-12-11] MEDS: NORepinephrine 8MG/250 ML (PMX 250 ML IV (13:26)
[2018-12-11] MEDS: VORICONAZOLE 200 MG TAB PO ×2 (13:33→21:21)
[2018-12-11] MEDS: morphine 2 MG INJ IV (16:00)
[2018-12-11 20:35] LABS: AADO2 Arterial 48.1 mmHg (7.0-24.0); Allen Test ACCEPTAB; Arterial Base Excess -4.5 mmol/L (-3.0-3); Arterial Blood Gas Oxygen Sat 98.5 mmHG (95.0-98.0); Arterial COHb 0.8 % (0.0-3.0); Arterial Fraction of Oxyhgb 97.5 % (93.0-99.0); Arterial HCO3 20.8 mmol/L (22.0-26.0); Arterial MetHb 0.2 % (0.0-1.5); MODE VENT - AC; Site Left Radial
[2018-12-12] MEDS: INSULIN ASPART [NOVOLOG] 3 ML PEN SC ×6 (01:00→21:29)
[2018-12-12] MEDS: ACCU-CHEK XX ×6 (01:00→21:33)
[2018-12-12] MEDS: HEPARIN 1000 UNITS/ML 10 ML INJ CATHETER (01:49)
[2018-12-12] MEDS: LORAZEPAM 2 MG INJ IV ×2 (02:53→21:42)
[2018-12-12 05:27] LABS: ADD MAN DIFF? NO
[2018-12-12 05:41] LABS: WHITE BLOOD COUNT 10.5 10^3/ul (4.8-10.8)
[2018-12-12 05:41] LABS: ABNORMAL IP MESSAGE 1; BASOPHILS % 0.2 % (0.0-2.0); EOSINOPHILS # 0.1 10^3/ul (0.0-0.5); EOSINOPHILS % 1.3 % (0.0-7.0); HEMATOCRIT 22.2 % (37.0-47.0); LYMPHOCYTES # 0.7 10^3/ul (0.8-2.9); LYMPHOCYTES % 6.4 % (15.0-51.0); MEAN CORPUSCULAR HEMOGLOBIN 32.9 pg (29.0-33.0); MEAN CORPUSCULAR HGB CONC 31.1 g/dl (32.0-37.0); MEAN CORPUSCULAR VOLUME 105.7 fl (82.0-101.0); MEAN PLATELET VOLUME 10.4 fl (7.4-10.4); MONOCYTE # 1.1 10^3/ul (0.3-0.9); MONOCYTES % 10.5 % (0.0-11.0); NEUTROPHIL # 8.4 10^3/ul (1.6-7.5); NEUTROPHILS % 80.7 % (39.0-77.0); PLATELET COUNT 267 10^3/UL (140-415)
[2018-12-12 05:52] LABS: HEMOGLOBIN 6.9 g/dl (12.0-16.0); POSITIVE DIFF @See below
[2018-12-12] MEDS: ACETAMINOPHEN 650MG/20.3ML CUP PEG ×3 (06:00→17:54)
[2018-12-12 06:03] LABS: ANION GAP 8 (5-13); BLOOD UREA NITROGEN 23 mg/dl (7-20); CALCIUM 8.7 mg/dl (8.4-10.2); CARBON DIOXIDE 26 mmol/L (21-31); CHLORIDE 100 mmol/L (97-110); CREATININE 3.78 mg/dl (0.44-1.00); Estimated GFR 13 mL/min (>60); GLUCOSE 116 mg/dl (70-220); SODIUM 134 mmol/L (135-144)
[2018-12-12] MEDS: LEVOTHYROXINE 100 MCG VIAL IV (06:32)
[2018-12-12] MEDS: DIAZEPAM 5 MG TAB PEG ×3 (06:32→21:27)
[2018-12-12] MEDS: metroNIDAZOLE 500 MG TAB PO ×3 (06:32→21:25)
[2018-12-12] MEDS: GABAPENTIN (50 MG/ML PO SYG) PEG ×3 (06:32→21:27)
[2018-12-12] MEDS: FAMOTIDINE 20 MG INJ IV (06:34)
[2018-12-12] MEDS: NPH, HUMAN INSULIN ISOPHANE 3ML VIAL SC ×3 (06:37→21:28)
[2018-12-12] MEDS: SEVELAMER CARBONATE 2.4 GM PKT GTB ×3 (08:10→17:57)
[2018-12-12] MEDS: SEVELAMER CARBONATE 0.8 GM PKT GTB ×3 (08:10→17:55)
[2018-12-12] MEDS: CALCIUM ACETATE 667 MG CAP PEG ×3 (08:11→17:54)
[2018-12-12] MEDS: MEROPENEM 500MG/50 ML (PMX) 50 ML IVPB (08:41)
[2018-12-12] MEDS: VORICONAZOLE 200 MG TAB PO ×2 (08:42→21:26)
[2018-12-12] MEDS: HYDROCORTISONE 5 MG TAB NGT ×3 (08:42→21:25)
[2018-12-12] MEDS: MIDODRINE 5 MG TAB PEG ×3 (08:42→21:26)
[2018-12-12] MEDS: BUSPIRONE 5 MG TAB PEG ×3 (08:42→21:26)
[2018-12-12] MEDS: SERTRALINE 100 MG TAB PEG (08:42)
[2018-12-12] MEDS: COLLAGENASE 5 GM (UD JAR) TOP (08:43)
[2018-12-12] MEDS: HYDROmorphONE 0.5 MG/0.5 ML SYG IV (11:48)
[2018-12-12] MEDS: LANTHANUM 500 MG CHEW PEG ×2 (12:05→18:51)
[2018-12-12] MEDS: EPOETIN ALFA-EPBX (ESRD) 4,000 UNIT/ML VIAL SC (17:56)
[2018-12-12] MEDS: morphine 2 MG INJ IV (23:24)
[2018-12-13] MEDS: INSULIN ASPART [NOVOLOG] 3 ML PEN SC ×6 (01:00→21:30)
[2018-12-13] MEDS: ACCU-CHEK XX ×6 (01:00→21:44)
[2018-12-13] MEDS: ACETAMINOPHEN 650MG/20.3ML CUP PEG ×4 (02:48→17:23)
[2018-12-13] MEDS: morphine 2 MG INJ IV ×4 (03:43→19:02)
[2018-12-13] MEDS: LEVOTHYROXINE 100 MCG VIAL IV (06:14)
[2018-12-13] MEDS: metroNIDAZOLE 500 MG TAB PO ×3 (06:14→21:30)
[2018-12-13] MEDS: DIAZEPAM 5 MG TAB PEG ×3 (06:14→21:24)
[2018-12-13] MEDS: FAMOTIDINE 20 MG INJ IV (06:14)
[2018-12-13] MEDS: NPH, HUMAN INSULIN ISOPHANE 3ML VIAL SC ×4 (06:35→21:43)
[2018-12-13] MEDS: GABAPENTIN (50 MG/ML PO SYG) PEG ×3 (08:08→21:23)
[2018-12-13] MEDS: HYDROmorphONE 0.5 MG/0.5 ML SYG IV ×3 (08:44→22:32)
[2018-12-13] MEDS: COLLAGENASE 5 GM (UD JAR) TOP (08:45)
[2018-12-13] MEDS: MIDODRINE 5 MG TAB PEG ×3 (08:45→21:24)
[2018-12-13] MEDS: LANTHANUM 500 MG CHEW PEG ×3 (08:45→16:40)
[2018-12-13] MEDS: SEVELAMER CARBONATE 2.4 GM PKT GTB ×3 (08:46→16:41)
[2018-12-13] MEDS: BUSPIRONE 5 MG TAB PEG ×3 (08:46→21:24)
[2018-12-13] MEDS: SEVELAMER CARBONATE 0.8 GM PKT GTB ×3 (08:46→16:40)
[2018-12-13] MEDS: SERTRALINE 100 MG TAB PEG (08:46)
[2018-12-13] MEDS: VORICONAZOLE 200 MG TAB PO ×2 (08:46→21:24)
[2018-12-13] MEDS: CALCIUM ACETATE 667 MG CAP PEG ×3 (08:47→16:40)
[2018-12-13] MEDS: HYDROCORTISONE 5 MG TAB NGT ×3 (08:47→21:24)
[2018-12-13] MEDS: LORAZEPAM 2 MG INJ IV (11:17)
[2018-12-14] MEDS: INSULIN ASPART [NOVOLOG] 3 ML PEN SC ×6 (01:00→20:14)
[2018-12-14] MEDS: ACCU-CHEK XX ×6 (01:28→20:12)
[2018-12-14] MEDS: ACETAMINOPHEN 650MG/20.3ML CUP PEG ×5 (01:31→23:59)
[2018-12-14] MEDS: HYDROmorphONE 0.5 MG/0.5 ML SYG IV ×3 (04:22→19:52)
[2018-12-14] MEDS: DIAZEPAM 5 MG TAB PEG ×3 (04:47→22:10)
[2018-12-14] MEDS: metroNIDAZOLE 500 MG TAB PO ×3 (04:47→22:10)
[2018-12-14] MEDS: GABAPENTIN (50 MG/ML PO SYG) PEG ×3 (04:47→22:09)
[2018-12-14] MEDS: FAMOTIDINE 20 MG INJ IV (04:47)
[2018-12-14] MEDS: LEVOTHYROXINE 100 MCG VIAL IV (04:48)
[2018-12-14] MEDS: NPH, HUMAN INSULIN ISOPHANE 3ML VIAL SC ×3 (05:02→22:16)
[2018-12-14 06:47] LABS: ADD MAN DIFF? NO
[2018-12-14 06:49] LABS: WHITE BLOOD COUNT 11.7 10^3/ul (4.8-10.8)
[2018-12-14 06:49] LABS: BASOPHIL # 0.1 10^3/ul (0.0-0.1); BASOPHILS % 0.4 % (0.0-2.0); EOSINOPHILS # 0.3 10^3/ul (0.0-0.5); EOSINOPHILS % 2.2 % (0.0-7.0); HEMOGLOBIN 7.6 g/dl (12.0-16.0); LYMPHOCYTES # 1.1 10^3/ul (0.8-2.9); LYMPHOCYTES % 9.4 % (15.0-51.0); MEAN CORPUSCULAR HEMOGLOBIN 32.3 pg (29.0-33.0); MEAN CORPUSCULAR HGB CONC 30.4 g/dl (32.0-37.0); MEAN CORPUSCULAR VOLUME 106.4 fl (82.0-101.0); MEAN PLATELET VOLUME 10.4 fl (7.4-10.4); MONOCYTE # 1.1 10^3/ul (0.3-0.9); MONOCYTES % 9.8 % (0.0-11.0); NEUTROPHILS % 77.5 % (39.0-77.0); PLATELET COUNT 334 10^3/UL (140-415); RED BLOOD COUNT 2.35 10^6/ul (4.20-5.40); RED CELL DISTRIBUTION WIDTH 17.2 % (11.5-14.5)
[2018-12-14 07:42] LABS: ANION GAP 13 (5-13); BLOOD UREA NITROGEN 35 mg/dl (7-20); CALCIUM 9.2 mg/dl (8.4-10.2); CARBON DIOXIDE 23 mmol/L (21-31); CHLORIDE 98 mmol/L (97-110); CREATININE 5.64 mg/dl (0.44-1.00); Estimated GFR 8 mL/min (>60); GLUCOSE 119 mg/dl (70-220); POTASSIUM 4.4 mmol/L (3.5-5.1); SODIUM 134 mmol/L (135-144)
[2018-12-14] MEDS: morphine 2 MG INJ IV (07:50)
[2018-12-14] MEDS: SEVELAMER CARBONATE 2.4 GM PKT GTB ×3 (08:08→17:58)
[2018-12-14] MEDS: CALCIUM ACETATE 667 MG CAP PEG ×3 (08:08→17:58)
[2018-12-14] MEDS: SEVELAMER CARBONATE 0.8 GM PKT GTB ×3 (08:09→17:58)
[2018-12-14] MEDS: LANTHANUM 500 MG CHEW PEG ×3 (08:09→17:58)
[2018-12-14] MEDS: MIDODRINE 5 MG TAB PEG ×3 (09:00→20:10)
[2018-12-14] MEDS: VORICONAZOLE 200 MG TAB PO ×2 (09:20→20:10)
[2018-12-14] MEDS: SERTRALINE 100 MG TAB PEG (09:20)
[2018-12-14] MEDS: COLLAGENASE 5 GM (UD JAR) TOP (09:20)
[2018-12-14] MEDS: BUSPIRONE 5 MG TAB PEG ×3 (09:21→20:09)
[2018-12-14] MEDS: HYDROCORTISONE 5 MG TAB NGT ×3 (09:22→20:09)
[2018-12-14] MEDS: HEPARIN 1000 UNITS/ML 10 ML INJ CATHETER (10:31)
[2018-12-14] MEDS: LORAZEPAM 2 MG INJ IV (13:05)
[2018-12-14] MEDS: LORAZEPAM 0.5 MG TAB NGT (20:11)
[2018-12-15] MEDS: LORAZEPAM 2 MG INJ IV ×3 (00:15→15:43)
[2018-12-15] MEDS: INSULIN ASPART [NOVOLOG] 3 ML PEN SC ×6 (01:00→22:37)
[2018-12-15] MEDS: ACCU-CHEK XX ×6 (01:48→21:00)
[2018-12-15] MEDS: DIPHENHYDRAMINE 50 MG CAP PEG (03:26)
[2018-12-15] MEDS: HYDROmorphONE 0.5 MG/0.5 ML SYG IV ×4 (03:26→20:42)
[2018-12-15] MEDS: LEVOTHYROXINE 100 MCG VIAL IV (05:03)
[2018-12-15] MEDS: ACETAMINOPHEN 650MG/20.3ML CUP PEG ×3 (05:29→17:10)
[2018-12-15] MEDS: metroNIDAZOLE 500 MG TAB PO ×3 (05:29→22:05)
[2018-12-15] MEDS: GABAPENTIN (50 MG/ML PO SYG) PEG ×3 (05:30→22:19)
[2018-12-15] MEDS: DIAZEPAM 5 MG TAB PEG ×3 (05:30→22:07)
[2018-12-15] MEDS: NPH, HUMAN INSULIN ISOPHANE 3ML VIAL SC ×3 (05:43→22:35)
[2018-12-15 07:59] LABS: ADD MAN DIFF? NO
[2018-12-15 08:02] LABS: BASOPHIL # 0.1 10^3/ul (0.0-0.1); BASOPHILS % 0.5 % (0.0-2.0); EOSINOPHILS % 0.2 % (0.0-7.0); HEMATOCRIT 22.8 % (37.0-47.0); HEMOGLOBIN 7.2 g/dl (12.0-16.0); LYMPHOCYTES # 0.8 10^3/ul (0.8-2.9); MEAN CORPUSCULAR HEMOGLOBIN 33.6 pg (29.0-33.0); MEAN CORPUSCULAR HGB CONC 31.6 g/dl (32.0-37.0); MEAN CORPUSCULAR VOLUME 106.5 fl (82.0-101.0); MEAN PLATELET VOLUME 10.7 fl (7.4-10.4); MONOCYTE # 0.9 10^3/ul (0.3-0.9); MONOCYTES % 9.5 % (0.0-11.0); NEUTROPHIL # 7.8 10^3/ul (1.6-7.5); PLATELET COUNT 291 10^3/UL (140-415); RED BLOOD COUNT 2.14 10^6/ul (4.20-5.40); RED CELL DISTRIBUTION WIDTH 17.2 % (11.5-14.5)
[2018-12-15 08:02] LABS: WHITE BLOOD COUNT 9.6 10^3/ul (4.8-10.8)
[2018-12-15 08:52] LABS: ANION GAP 9 (5-13); BLOOD UREA NITROGEN 30 mg/dl (7-20); CALCIUM 8.9 mg/dl (8.4-10.2); CARBON DIOXIDE 24 mmol/L (21-31); CHLORIDE 100 mmol/L (97-110); CREATININE 4.82 mg/dl (0.44-1.00); Estimated GFR 10 mL/min (>60); GLUCOSE 132 mg/dl (70-220); POTASSIUM 4.5 mmol/L (3.5-5.1); SODIUM 133 mmol/L (135-144)
[2018-12-15] MEDS: COLLAGENASE 5 GM (UD JAR) TOP (09:20)
[2018-12-15] MEDS: SEVELAMER CARBONATE 0.8 GM PKT GTB ×3 (09:21→17:11)
[2018-12-15] MEDS: SEVELAMER CARBONATE 2.4 GM PKT GTB ×3 (09:21→17:11)
[2018-12-15] MEDS: MIDODRINE 5 MG TAB PEG ×3 (09:21→21:00)
[2018-12-15] MEDS: VORICONAZOLE 200 MG TAB PO ×2 (09:21→22:05)
[2018-12-15] MEDS: BUSPIRONE 5 MG TAB PEG ×3 (09:21→22:05)
[2018-12-15] MEDS: FAMOTIDINE 20 MG TAB PEG (09:22)
[2018-12-15] MEDS: LANTHANUM 500 MG CHEW PEG ×3 (09:22→17:11)
[2018-12-15] MEDS: SERTRALINE 100 MG TAB PEG (09:22)
[2018-12-15] MEDS: CALCIUM ACETATE 667 MG CAP PEG ×3 (09:22→17:10)
[2018-12-15] MEDS: HYDROCORTISONE 5 MG TAB NGT ×2 (13:14→22:04)
[2018-12-15] MEDS: EPOETIN ALFA-EPBX (ESRD) 4,000 UNIT/ML VIAL SC (17:12)
[2018-12-16] MEDS: HYDROmorphONE 0.5 MG/0.5 ML SYG IV ×4 (00:17→21:51)
[2018-12-16] MEDS: ACCU-CHEK XX ×6 (01:00→21:00)
[2018-12-16] MEDS: INSULIN ASPART [NOVOLOG] 3 ML PEN SC ×6 (01:12→22:22)
[2018-12-16] MEDS: LORAZEPAM 2 MG INJ IV ×5 (02:23→19:06)
[2018-12-16] MEDS: DIAZEPAM 5 MG TAB PEG ×3 (05:16→21:34)
[2018-12-16] MEDS: LEVOTHYROXINE 100 MCG VIAL IV (05:16)
[2018-12-16] MEDS: GABAPENTIN (50 MG/ML PO SYG) PEG ×3 (05:16→21:33)
[2018-12-16] MEDS: metroNIDAZOLE 500 MG TAB PO ×3 (05:16→21:33)
[2018-12-16] MEDS: ACETAMINOPHEN 650MG/20.3ML CUP PEG ×4 (05:17→17:29)
[2018-12-16] MEDS: NPH, HUMAN INSULIN ISOPHANE 3ML VIAL SC ×3 (05:35→22:22)
[2018-12-16] MEDS: SEVELAMER CARBONATE 2.4 GM PKT GTB ×3 (07:46→17:29)
[2018-12-16] MEDS: CALCIUM ACETATE 667 MG CAP PEG ×3 (07:46→17:30)
[2018-12-16] MEDS: SEVELAMER CARBONATE 0.8 GM PKT GTB ×3 (07:47→17:29)
[2018-12-16] MEDS: LANTHANUM 500 MG CHEW PEG ×3 (07:47→17:29)
[2018-12-16 08:11] LABS: ADD MAN DIFF? NO
[2018-12-16 08:21] LABS: BASOPHIL # 0.1 10^3/ul (0.0-0.1); BASOPHILS % 0.5 % (0.0-2.0); EOSINOPHILS # 0.2 10^3/ul (0.0-0.5); EOSINOPHILS % 1.7 % (0.0-7.0); HEMATOCRIT 24.3 % (37.0-47.0); HEMOGLOBIN 7.4 g/dl (12.0-16.0); LYMPHOCYTES # 0.9 10^3/ul (0.8-2.9); LYMPHOCYTES % 8.4 % (15.0-51.0); MEAN CORPUSCULAR HEMOGLOBIN 32.3 pg (29.0-33.0); MEAN CORPUSCULAR HGB CONC 30.5 g/dl (32.0-37.0); MEAN CORPUSCULAR VOLUME 106.1 fl (82.0-101.0); MEAN PLATELET VOLUME 10.7 fl (7.4-10.4); MONOCYTE # 1.2 10^3/ul (0.3-0.9); MONOCYTES % 10.5 % (0.0-11.0); NEUTROPHIL # 8.8 10^3/ul (1.6-7.5); NEUTROPHILS % 78.1 % (39.0-77.0); PLATELET COUNT 311 10^3/UL (140-415); RED BLOOD COUNT 2.29 10^6/ul (4.20-5.40); RED CELL DISTRIBUTION WIDTH 17.2 % (11.5-14.5)
[2018-12-16 08:21] LABS: WHITE BLOOD COUNT 11.2 10^3/ul (4.8-10.8)
[2018-12-16 08:45] LABS: ANION GAP 8 (5-13); BLOOD UREA NITROGEN 40 mg/dl (7-20); CALCIUM 9.1 mg/dl (8.4-10.2); CARBON DIOXIDE 25 mmol/L (21-31); CHLORIDE 98 mmol/L (97-110); CREATININE 5.52 mg/dl (0.44-1.00); Estimated GFR 8 mL/min (>60); GLUCOSE 111 mg/dl (70-220); POTASSIUM 4.7 mmol/L (3.5-5.1); SODIUM 131 mmol/L (135-144)
[2018-12-16] MEDS: MIDODRINE 5 MG TAB PEG ×3 (09:00→21:00)
[2018-12-16] MEDS: FAMOTIDINE 20 MG TAB PEG (09:22)
[2018-12-16] MEDS: HYDROCORTISONE 5 MG TAB NGT ×3 (09:22→21:33)
[2018-12-16] MEDS: SERTRALINE 100 MG TAB PEG (09:23)
[2018-12-16] MEDS: BUSPIRONE 5 MG TAB PEG ×3 (09:23→21:33)
[2018-12-16] MEDS: VORICONAZOLE 200 MG TAB PO ×2 (09:23→21:33)
[2018-12-16] MEDS: COLLAGENASE 5 GM (UD JAR) TOP (09:24)
[2018-12-17] MEDS: INSULIN ASPART [NOVOLOG] 3 ML PEN SC ×6 (01:00→20:43)
[2018-12-17] MEDS: ACCU-CHEK XX ×6 (01:00→20:41)
[2018-12-17] MEDS: LORAZEPAM 2 MG INJ IV ×2 (03:28→09:49)
[2018-12-17] MEDS ORDERED: LORAZEPAM 2 MG INJ IV (03:30)
[2018-12-17] MEDS: DIAZEPAM 5 MG TAB PEG ×3 (05:20→22:11)
[2018-12-17] MEDS: LEVOTHYROXINE 100 MCG VIAL IV (05:20)
[2018-12-17] MEDS: GABAPENTIN (50 MG/ML PO SYG) PEG ×3 (05:20→22:11)
[2018-12-17] MEDS: metroNIDAZOLE 500 MG TAB PO ×3 (05:20→22:11)
[2018-12-17] MEDS: ACETAMINOPHEN 650MG/20.3ML CUP PEG ×4 (05:23→17:56)
[2018-12-17] MEDS: NPH, HUMAN INSULIN ISOPHANE 3ML VIAL SC ×3 (05:43→22:14)
[2018-12-17 06:47] LABS: ADD MAN DIFF? NO
[2018-12-17 06:52] LABS: BASOPHIL # 0.1 10^3/ul (0.0-0.1); BASOPHILS % 0.5 % (0.0-2.0); EOSINOPHILS # 0.2 10^3/ul (0.0-0.5); EOSINOPHILS % 1.9 % (0.0-7.0); HEMATOCRIT 24.1 % (37.0-47.0); HEMOGLOBIN 7.5 g/dl (12.0-16.0); LYMPHOCYTES # 0.8 10^3/ul (0.8-2.9); LYMPHOCYTES % 7.2 % (15.0-51.0); MEAN CORPUSCULAR HEMOGLOBIN 33.3 pg (29.0-33.0); MEAN CORPUSCULAR HGB CONC 31.1 g/dl (32.0-37.0); MEAN CORPUSCULAR VOLUME 107.1 fl (82.0-101.0); MEAN PLATELET VOLUME 10.7 fl (7.4-10.4); MONOCYTES % 8.7 % (0.0-11.0); NEUTROPHILS % 80.9 % (39.0-77.0); PLATELET COUNT 292 10^3/UL (140-415); RED BLOOD COUNT 2.25 10^6/ul (4.20-5.40); RED CELL DISTRIBUTION WIDTH 17.2 % (11.5-14.5)
[2018-12-17 06:52] LABS: WHITE BLOOD COUNT 11.1 10^3/ul (4.8-10.8)
[2018-12-17 07:20] LABS: ANION GAP 12 (5-13); BLOOD UREA NITROGEN 46 mg/dl (7-20); CARBON DIOXIDE 23 mmol/L (21-31); CHLORIDE 96 mmol/L (97-110); CREATININE 6.23 mg/dl (0.44-1.00); Estimated GFR 7 mL/min (>60); GLUCOSE 123 mg/dl (70-220); SODIUM 131 mmol/L (135-144)
[2018-12-17] MEDS: HYDROmorphONE 0.5 MG/0.5 ML SYG IV ×3 (07:31→17:57)
[2018-12-17] MEDS: MIDODRINE 5 MG TAB PEG ×3 (09:00→20:44)
[2018-12-17] MEDS: VORICONAZOLE 200 MG TAB PO (09:44)
[2018-12-17] MEDS: HYDROCORTISONE 5 MG TAB NGT ×3 (09:44→20:44)
[2018-12-17] MEDS: SERTRALINE 100 MG TAB PEG (09:44)
[2018-12-17] MEDS: CALCIUM ACETATE 667 MG CAP PEG ×3 (09:45→17:57)
[2018-12-17] MEDS: LANTHANUM 500 MG CHEW PEG ×3 (09:46→17:57)
[2018-12-17] MEDS: SEVELAMER CARBONATE 2.4 GM PKT GTB ×3 (09:46→17:56)
[2018-12-17] MEDS: SEVELAMER CARBONATE 0.8 GM PKT GTB ×3 (09:46→17:56)
[2018-12-17] MEDS: FAMOTIDINE 20 MG TAB PEG (09:47)
[2018-12-17] MEDS: [UNRECOGNIZED DRUG - REMARK] XX ×2 (09:48→17:57)
[2018-12-17] MEDS: COLLAGENASE 5 GM (UD JAR) TOP (09:48)
[2018-12-17] MEDS: BUSPIRONE 5 MG TAB PEG ×3 (09:48→20:44)
[2018-12-17] MEDS: EPOETIN ALFA-EPBX (ESRD) 4,000 UNIT/ML VIAL SC (17:58)
[2018-12-17] MEDS: ALTEPLASE (CATHFLO) 2 MG INJ CATHETER (18:54)
[2018-12-18] MEDS: ACETAMINOPHEN 650MG/20.3ML CUP PEG ×4 (00:51→17:38)
[2018-12-18] MEDS: ACCU-CHEK XX ×6 (00:55→20:54)
[2018-12-18] MEDS: INSULIN ASPART [NOVOLOG] 3 ML PEN SC ×6 (00:56→20:54)
[2018-12-18] MEDS: HYDROmorphONE 0.5 MG/0.5 ML SYG IV ×5 (01:35→17:38)
[2018-12-18] MEDS: [UNRECOGNIZED DRUG - REMARK] XX ×3 (01:45→18:00)
[2018-12-18] MEDS: LORAZEPAM 2 MG INJ IV ×2 (03:00→07:20)
[2018-12-18] MEDS: metroNIDAZOLE 500 MG TAB PO ×3 (05:46→22:02)
[2018-12-18] MEDS: DIAZEPAM 5 MG TAB PEG ×3 (05:46→22:02)
[2018-12-18] MEDS: LEVOTHYROXINE 100 MCG VIAL IV (05:46)
[2018-12-18] MEDS: GABAPENTIN (50 MG/ML PO SYG) PEG ×3 (05:46→22:02)
[2018-12-18] MEDS: NPH, HUMAN INSULIN ISOPHANE 3ML VIAL SC ×3 (06:08→22:15)
[2018-12-18] MEDS: SEVELAMER CARBONATE 2.4 GM PKT GTB ×3 (07:55→17:38)
[2018-12-18] MEDS: SEVELAMER CARBONATE 0.8 GM PKT GTB ×3 (07:55→17:38)
[2018-12-18] MEDS: LANTHANUM 500 MG CHEW PEG ×3 (07:55→17:38)
[2018-12-18] MEDS: CALCIUM ACETATE 667 MG CAP PEG ×3 (07:55→17:39)
[2018-12-18] MEDS: MIDODRINE 5 MG TAB PEG ×4 (09:00→20:47)
[2018-12-18 09:19] LABS: ABNORMAL IP MESSAGE 1; HEMATOCRIT 29.3 % (37.0-47.0); HEMOGLOBIN 9.2 g/dl (12.0-16.0); MEAN CORPUSCULAR HEMOGLOBIN 33.6 pg (29.0-33.0); MEAN CORPUSCULAR HGB CONC 31.4 g/dl (32.0-37.0); MEAN CORPUSCULAR VOLUME 106.9 fl (82.0-101.0); MEAN PLATELET VOLUME 10.4 fl (7.4-10.4); NUCLEATED RED BLOOD CELLS% 0.1 /100WBC (0.0-0.0); PLATELET COUNT 318 10^3/UL (140-415); RED BLOOD COUNT 2.74 10^6/ul (4.20-5.40); RED CELL DISTRIBUTION WIDTH 17.5 % (11.5-14.5)
[2018-12-18 09:19] LABS: WHITE BLOOD COUNT 15.6 10^3/ul (4.8-10.8)
[2018-12-18 09:24] LABS: POSITIVE DIFF @See below
[2018-12-18 09:25] LABS: ADD MAN DIFF? YES
[2018-12-18] MEDS: COLLAGENASE 5 GM (UD JAR) TOP (09:29)
[2018-12-18] MEDS: SERTRALINE 100 MG TAB PEG (09:29)
[2018-12-18] MEDS: BUSPIRONE 5 MG TAB PEG ×3 (09:29→20:47)
[2018-12-18] MEDS: FAMOTIDINE 20 MG TAB PEG (09:29)
[2018-12-18] MEDS: HYDROCORTISONE 5 MG TAB NGT ×3 (09:29→20:47)
[2018-12-18 09:52] LABS: ANION GAP 13 (5-13); BLOOD UREA NITROGEN 49 mg/dl (7-20); CALCIUM 9.6 mg/dl (8.4-10.2); CARBON DIOXIDE 24 mmol/L (21-31); CHLORIDE 95 mmol/L (97-110); CREATININE 6.57 mg/dl (0.44-1.00); Estimated GFR 7 mL/min (>60); GLUCOSE 92 mg/dl (70-220); POTASSIUM 4.9 mmol/L (3.5-5.1); SODIUM 132 mmol/L (135-144)
[2018-12-18] MEDS: ALBUMIN HUMAN 25% 100 ML IV (10:06)
[2018-12-18 10:51] LABS: ANISOCYTOSIS 2+ (0-0); BAND NEUTROPHILS #M 0.7 10^3/ul (0.0-0.6); BAND NEUTROPHILS % (M) 5 % (0-4); EOSINOPHILS % (M) 3 % (0-7); ERYTHROBLAST% (NRBC) (M) 1 % (0-0); GIANT THROMBO% (M) 1 % (0-0); HYPOCHROMASIA 3+ (0-0); LYMPHOCYTES #M 0.7 10^3/ul (0.8-2.9); LYMPHOCYTES % (M) 5 % (15-51); PLATELET ESTIMATE NORMAL; POIKILOCYTOSIS 1+ (0-0); POLYCHROMASIA 3+ (0-0); SEG NEUT #M 13.7 10^3/ul (1.6-7.5); SEGMENTED NEUTROPHILS (M) % 87 % (39-77); SMUDGE%M 1 % (0-0)
[2018-12-18] MEDS: HEPARIN 1000 UNITS/ML 10 ML INJ CATHETER (12:37)
[2018-12-19] MEDS: ACETAMINOPHEN 650MG/20.3ML CUP PEG ×4 (00:52→17:44)
[2018-12-19] MEDS: ACCU-CHEK XX ×6 (00:54→21:37)
[2018-12-19] MEDS: INSULIN ASPART [NOVOLOG] 3 ML PEN SC ×6 (00:54→22:02)
[2018-12-19] MEDS: HYDROmorphONE 0.5 MG/0.5 ML SYG IV ×3 (00:59→12:01)
[2018-12-19] MEDS: [UNRECOGNIZED DRUG - REMARK] XX ×3 (02:00→17:20)
[2018-12-19] MEDS: DIAZEPAM 5 MG TAB PEG ×3 (05:54→21:44)
[2018-12-19] MEDS: metroNIDAZOLE 500 MG TAB PO ×3 (05:54→21:46)
[2018-12-19] MEDS: GABAPENTIN (50 MG/ML PO SYG) PEG ×3 (05:54→21:44)
[2018-12-19] MEDS: LEVOTHYROXINE 100 MCG VIAL IV (05:55)
[2018-12-19] MEDS: NPH, HUMAN INSULIN ISOPHANE 3ML VIAL SC ×3 (06:11→22:03)
[2018-12-19 06:52] LABS: ADD MAN DIFF? NO
[2018-12-19 06:55] LABS: ABNORMAL IP MESSAGE 1; BASOPHIL # 0.1 10^3/ul (0.0-0.1); BASOPHILS % 0.4 % (0.0-2.0); EOSINOPHILS # 0.3 10^3/ul (0.0-0.5); EOSINOPHILS % 1.5 % (0.0-7.0); HEMATOCRIT 22.2 % (37.0-47.0); LYMPHOCYTES # 0.4 10^3/ul (0.8-2.9); LYMPHOCYTES % 1.9 % (15.0-51.0); MEAN CORPUSCULAR HEMOGLOBIN 34.3 pg (29.0-33.0); MEAN CORPUSCULAR HGB CONC 31.1 g/dl (32.0-37.0); MEAN CORPUSCULAR VOLUME 110.4 fl (82.0-101.0); MEAN PLATELET VOLUME 10.6 fl (7.4-10.4); MONOCYTE # 0.9 10^3/ul (0.3-0.9); MONOCYTES % 4.4 % (0.0-11.0); NEUTROPHIL # 19.1 10^3/ul (1.6-7.5); PLATELET COUNT 182 10^3/UL (140-415); RED BLOOD COUNT 2.01 10^6/ul (4.20-5.40); RED CELL DISTRIBUTION WIDTH 18.3 % (11.5-14.5)
[2018-12-19 07:09] LABS: POSITIVE DIFF @See below
[2018-12-19 07:11] LABS: HEMOGLOBIN 6.9 g/dl (12.0-16.0); PATH REVIEW? YES
[2018-12-19 07:18] LABS: ANION GAP 7 (5-13); BLOOD UREA NITROGEN 37 mg/dl (7-20); CALCIUM 9.2 mg/dl (8.4-10.2); CARBON DIOXIDE 27 mmol/L (21-31); CHLORIDE 98 mmol/L (97-110); CREATININE 4.88 mg/dl (0.44-1.00); Estimated GFR 10 mL/min (>60); GLUCOSE 173 mg/dl (70-220); POTASSIUM 4.9 mmol/L (3.5-5.1); SODIUM 132 mmol/L (135-144)
[2018-12-19] MEDS: LANTHANUM 500 MG CHEW PEG ×3 (07:50→17:44)
[2018-12-19] MEDS: CALCIUM ACETATE 667 MG CAP PEG ×3 (07:50→17:45)
[2018-12-19] MEDS: SEVELAMER CARBONATE 2.4 GM PKT GTB ×3 (07:50→17:45)
[2018-12-19] MEDS: SEVELAMER CARBONATE 0.8 GM PKT GTB ×3 (07:50→17:45)
[2018-12-19 08:41] LABS: ANISOCYTOSIS 3+ (0-0); BAND NEUTROPHILS #M 1.6 10^3/ul (0.0-0.6); BAND NEUTROPHILS % (M) 8 % (0-4); EOSINOPHILS % (M) 1 % (0-7); HYPOCHROMASIA 1+ (0-0); LYMPHOCYTES #M 0.2 10^3/ul (0.8-2.9); LYMPHOCYTES % (M) 1 % (15-51); MONOCYTE #M 0.6 10^3/ul (0.3-0.9); MONOCYTES % (M) 3 % (0-11); PLATELET ESTIMATE INCREASED; POLYCHROMASIA 2+ (0-0); SEG NEUT #M 18.6 10^3/ul (1.6-7.5); SEGMENTED NEUTROPHILS (M) % 87 % (39-77); SMUDGE%M 3 % (0-0); SPHEROCYTES 1+ (0-0)
[2018-12-19] MEDS: MIDODRINE 5 MG TAB PEG ×3 (09:00→21:00)
[2018-12-19] MEDS: SERTRALINE 100 MG TAB PEG (09:29)
[2018-12-19] MEDS: BUSPIRONE 5 MG TAB PEG ×3 (09:29→21:35)
[2018-12-19] MEDS: HYDROCORTISONE 5 MG TAB NGT ×3 (09:30→21:35)
[2018-12-19] MEDS: FAMOTIDINE 20 MG TAB PEG (09:30)
[2018-12-19] MEDS: LORAZEPAM 2 MG INJ IV ×2 (09:30→18:15)
[2018-12-19] MEDS: COLLAGENASE 5 GM (UD JAR) TOP (09:31)
[2018-12-19] MEDS ORDERED: VANCOMYCIN IV PER PHARMACY XX (11:30)
[2018-12-19] MEDS: MEROPENEM 500MG/50 ML (PMX) 50 ML IVPB ×2 (12:48→21:34)
[2018-12-19] MEDS: VANCOMYCIN 1 GM 250 ML IVPB (14:22)
[2018-12-19] MEDS: EPOETIN ALFA-EPBX (ESRD) 4,000 UNIT/ML VIAL SC (17:47)
[2018-12-20] MEDS: ACETAMINOPHEN 650MG/20.3ML CUP PEG ×4 (00:23→17:37)
[2018-12-20] MEDS: ACCU-CHEK XX ×6 (01:41→21:14)
[2018-12-20] MEDS: INSULIN ASPART [NOVOLOG] 3 ML PEN SC ×6 (01:44→21:55)
[2018-12-20] MEDS: [UNRECOGNIZED DRUG - REMARK] XX ×3 (02:00→17:29)
[2018-12-20] MEDS: LORAZEPAM 2 MG INJ IV ×2 (03:23→12:04)
[2018-12-20] MEDS: HYDROmorphONE 0.5 MG/0.5 ML SYG IV ×5 (05:44→22:39)
[2018-12-20] MEDS: NPH, HUMAN INSULIN ISOPHANE 3ML VIAL SC ×3 (05:57→21:55)
[2018-12-20] MEDS: metroNIDAZOLE 500 MG TAB PO ×3 (06:24→21:19)
[2018-12-20] MEDS: LEVOTHYROXINE 100 MCG VIAL IV (06:24)
[2018-12-20] MEDS: DIAZEPAM 5 MG TAB PEG ×3 (06:24→21:19)
[2018-12-20] MEDS: GABAPENTIN (50 MG/ML PO SYG) PEG ×3 (06:24→21:19)
[2018-12-20] MEDS: SEVELAMER CARBONATE 0.8 GM PKT GTB ×3 (07:46→17:36)
[2018-12-20] MEDS: LANTHANUM 500 MG CHEW PEG ×3 (07:46→17:36)
[2018-12-20] MEDS: SEVELAMER CARBONATE 2.4 GM PKT GTB ×3 (07:46→17:36)
[2018-12-20] MEDS: CALCIUM ACETATE 667 MG CAP PEG ×3 (07:46→17:37)
[2018-12-20 07:49] LABS: ADD MAN DIFF? NO
[2018-12-20 07:50] LABS: WHITE BLOOD COUNT 15.7 10^3/ul (4.8-10.8)
[2018-12-20 07:50] LABS: ABNORMAL IP MESSAGE 1; BASOPHIL # 0.1 10^3/ul (0.0-0.1); BASOPHILS % 0.3 % (0.0-2.0); EOSINOPHILS # 0.4 10^3/ul (0.0-0.5); EOSINOPHILS % 2.5 % (0.0-7.0); HEMATOCRIT 21.7 % (37.0-47.0); LYMPHOCYTES # 0.7 10^3/ul (0.8-2.9); LYMPHOCYTES % 4.2 % (15.0-51.0); MEAN CORPUSCULAR HEMOGLOBIN 33.3 pg (29.0-33.0); MEAN CORPUSCULAR HGB CONC 30.4 g/dl (32.0-37.0); MEAN CORPUSCULAR VOLUME 109.6 fl (82.0-101.0); MEAN PLATELET VOLUME 11.2 fl (7.4-10.4); MONOCYTE # 1.1 10^3/ul (0.3-0.9); NEUTROPHIL # 13.3 10^3/ul (1.6-7.5); NEUTROPHILS % 85.1 % (39.0-77.0); PLATELET COUNT 178 10^3/UL (140-415); RED BLOOD COUNT 1.98 10^6/ul (4.20-5.40); RED CELL DISTRIBUTION WIDTH 17.9 % (11.5-14.5)
[2018-12-20 07:54] LABS: POSITIVE DIFF @See below
[2018-12-20 07:55] LABS: HEMOGLOBIN 6.6 g/dl (12.0-16.0)
[2018-12-20 08:14] LABS: ANION GAP 11 (5-13); BLOOD UREA NITROGEN 45 mg/dl (7-20); CALCIUM 9.4 mg/dl (8.4-10.2); CARBON DIOXIDE 25 mmol/L (21-31); CHLORIDE 96 mmol/L (97-110); CREATININE 5.46 mg/dl (0.44-1.00); Estimated GFR 9 mL/min (>60); GLUCOSE 175 mg/dl (70-220); SODIUM 132 mmol/L (135-144)
[2018-12-20] MEDS: MIDODRINE 5 MG TAB PEG ×3 (09:00→21:00)
[2018-12-20] MEDS: COLLAGENASE 5 GM (UD JAR) TOP (09:49)
[2018-12-20] MEDS: HYDROCORTISONE 5 MG TAB NGT ×3 (09:50→21:15)
[2018-12-20] MEDS: BUSPIRONE 5 MG TAB PEG ×3 (09:51→21:15)
[2018-12-20] MEDS: FAMOTIDINE 20 MG TAB PEG (09:51)
[2018-12-20] MEDS: SERTRALINE 100 MG TAB PEG (09:51)
[2018-12-20] MEDS: MEROPENEM 500MG/50 ML (PMX) 50 ML IVPB ×2 (09:52→21:15)
[2018-12-21] MEDS: ACETAMINOPHEN 650MG/20.3ML CUP PEG ×4 (00:29→18:06)
[2018-12-21] MEDS: ACCU-CHEK XX ×6 (01:24→21:00)
[2018-12-21] MEDS: INSULIN ASPART [NOVOLOG] 3 ML PEN SC ×6 (01:37→23:01)
[2018-12-21] MEDS: [UNRECOGNIZED DRUG - REMARK] XX ×3 (02:00→18:00)
[2018-12-21] MEDS: HYDROmorphONE 0.5 MG/0.5 ML SYG IV ×6 (03:42→21:45)
[2018-12-21] MEDS: metroNIDAZOLE 500 MG TAB PO ×3 (05:45→21:44)
[2018-12-21] MEDS: LEVOTHYROXINE 100 MCG VIAL IV (05:45)
[2018-12-21] MEDS: GABAPENTIN (50 MG/ML PO SYG) PEG ×3 (05:45→21:44)
[2018-12-21] MEDS: DIAZEPAM 5 MG TAB PEG ×3 (05:47→23:03)
[2018-12-21 06:04] LABS: VANCOMYCIN,RANDOM < 5.0 ug/ml
[2018-12-21] MEDS: NPH, HUMAN INSULIN ISOPHANE 3ML VIAL SC ×3 (06:04→23:14)
[2018-12-21] MEDS: SEVELAMER CARBONATE 2.4 GM PKT GTB ×3 (09:37→18:06)
[2018-12-21] MEDS: SEVELAMER CARBONATE 0.8 GM PKT GTB ×3 (09:37→18:06)
[2018-12-21] MEDS: CALCIUM ACETATE 667 MG CAP PEG ×3 (09:37→18:06)
[2018-12-21] MEDS: LANTHANUM 500 MG CHEW PEG ×3 (09:38→18:06)
[2018-12-21] MEDS: MIDODRINE 5 MG TAB PEG ×3 (09:39→21:00)
[2018-12-21] MEDS: BUSPIRONE 5 MG TAB PEG ×3 (09:39→21:44)
[2018-12-21] MEDS: FAMOTIDINE 20 MG TAB PEG (09:40)
[2018-12-21] MEDS: HYDROCORTISONE 5 MG TAB NGT ×3 (09:40→21:43)
[2018-12-21] MEDS: COLLAGENASE 5 GM (UD JAR) TOP (09:40)
[2018-12-21] MEDS: SERTRALINE 100 MG TAB PEG (09:42)
[2018-12-21] MEDS: MEROPENEM 500MG/50 ML (PMX) 50 ML IVPB ×2 (09:54→21:43)
[2018-12-21] MEDS: LORAZEPAM 2 MG INJ IV (10:09)
[2018-12-21] MEDS: VANCOMYCIN HCL 1.5 GM in SOD CHLORIDE 0.9% 250 ML IVPB (11:41)
[2018-12-21] MEDS: VORICONAZOLE 200 MG TAB PO (21:44)
[2018-12-22] MEDS: ACETAMINOPHEN 650MG/20.3ML CUP PEG ×4 (00:38→17:57)
[2018-12-22] MEDS: ACCU-CHEK XX ×6 (01:00→21:48)
[2018-12-22] MEDS: [UNRECOGNIZED DRUG - REMARK] XX ×3 (02:00→17:11)
[2018-12-22] MEDS: INSULIN ASPART [NOVOLOG] 3 ML PEN SC ×6 (02:15→21:49)
[2018-12-22] MEDS: HYDROmorphONE 0.5 MG/0.5 ML SYG IV ×2 (02:36→05:14)
[2018-12-22] MEDS: GABAPENTIN (50 MG/ML PO SYG) PEG ×3 (05:52→21:31)
[2018-12-22] MEDS: LEVOTHYROXINE 100 MCG VIAL IV (05:52)
[2018-12-22] MEDS: metroNIDAZOLE 500 MG TAB PO ×2 (05:55→13:07)
[2018-12-22] MEDS: DIAZEPAM 5 MG TAB PEG ×3 (05:55→21:31)
[2018-12-22] MEDS: NPH, HUMAN INSULIN ISOPHANE 3ML VIAL SC ×3 (06:16→21:47)
[2018-12-22 08:22] LABS: ADD MAN DIFF? NO
[2018-12-22 08:27] LABS: BASOPHIL # 0.1 10^3/ul (0.0-0.1); BASOPHILS % 0.6 % (0.0-2.0); EOSINOPHILS # 0.3 10^3/ul (0.0-0.5); EOSINOPHILS % 3.9 % (0.0-7.0); HEMATOCRIT 23.3 % (37.0-47.0); HEMOGLOBIN 7.2 g/dl (12.0-16.0); LYMPHOCYTES # 1.1 10^3/ul (0.8-2.9); LYMPHOCYTES % 12.7 % (15.0-51.0); MEAN CORPUSCULAR HEMOGLOBIN 33.2 pg (29.0-33.0); MEAN CORPUSCULAR HGB CONC 30.9 g/dl (32.0-37.0); MEAN CORPUSCULAR VOLUME 107.4 fl (82.0-101.0); MEAN PLATELET VOLUME 11.2 fl (7.4-10.4); MONOCYTE # 0.7 10^3/ul (0.3-0.9); MONOCYTES % 8.4 % (0.0-11.0); NEUTROPHIL # 6.4 10^3/ul (1.6-7.5); NEUTROPHILS % 73.7 % (39.0-77.0); PLATELET COUNT 175 10^3/UL (140-415); RED BLOOD COUNT 2.17 10^6/ul (4.20-5.40); RED CELL DISTRIBUTION WIDTH 17.7 % (11.5-14.5)
[2018-12-22 08:27] LABS: WHITE BLOOD COUNT 8.7 10^3/ul (4.8-10.8)
[2018-12-22] MEDS: SEVELAMER CARBONATE 0.8 GM PKT GTB ×3 (08:27→17:57)
[2018-12-22] MEDS: SEVELAMER CARBONATE 2.4 GM PKT GTB ×3 (08:27→17:58)
[2018-12-22] MEDS: MIDODRINE 5 MG TAB PEG ×3 (08:28→21:00)
[2018-12-22] MEDS: LANTHANUM 500 MG CHEW PEG ×3 (08:28→17:57)
[2018-12-22] MEDS: BUSPIRONE 5 MG TAB PEG ×3 (08:29→21:31)
[2018-12-22] MEDS: HYDROCORTISONE 5 MG TAB NGT ×3 (08:29→21:31)
[2018-12-22] MEDS: CALCIUM ACETATE 667 MG CAP PEG ×3 (08:29→17:58)
[2018-12-22] MEDS: FAMOTIDINE 20 MG TAB PEG (08:29)
[2018-12-22] MEDS: SERTRALINE 100 MG TAB PEG (08:29)
[2018-12-22] MEDS: VORICONAZOLE 200 MG TAB PO ×2 (08:29→21:31)
[2018-12-22] MEDS: MEROPENEM 500MG/50 ML (PMX) 50 ML IVPB ×2 (08:30→21:31)
[2018-12-22] MEDS: COLLAGENASE 5 GM (UD JAR) TOP (08:31)
[2018-12-22 08:51] LABS: ANION GAP 11 (5-13); BLOOD UREA NITROGEN 46 mg/dl (7-20); CALCIUM 9.2 mg/dl (8.4-10.2); CARBON DIOXIDE 25 mmol/L (21-31); CHLORIDE 98 mmol/L (97-110); CREATININE 4.88 mg/dl (0.44-1.00); Estimated GFR 10 mL/min (>60); GLUCOSE 125 mg/dl (70-220); MAGNESIUM 2.5 mg/dl (1.7-2.5); PHOSPHORUS 2.1 mg/dl (2.5-4.9); POTASSIUM 5.1 mmol/L (3.5-5.1); SODIUM 134 mmol/L (135-144)
[2018-12-22] MEDS: LORAZEPAM 2 MG INJ IV ×2 (10:37→14:46)
[2018-12-22] MEDS ORDERED: ACCU-CHEK XX (12:00)
[2018-12-22] MEDS: morphine 2 MG INJ IV ×2 (15:07→19:01)
[2018-12-22] MEDS: EPOETIN ALFA-EPBX (ESRD) 4,000 UNIT/ML VIAL SC (17:59)
[2018-12-22] MEDS: ALTEPLASE (CATHFLO) 2 MG INJ CATHETER ×2 (18:59→19:00)
[2018-12-23] MEDS: ACETAMINOPHEN 650MG/20.3ML CUP PEG ×4 (00:58→17:00)
[2018-12-23] MEDS: morphine 2 MG INJ IV ×6 (00:58→22:03)
[2018-12-23] MEDS: INSULIN ASPART [NOVOLOG] 3 ML PEN SC ×6 (01:09→21:00)
[2018-12-23] MEDS: ACCU-CHEK XX ×6 (01:11→21:00)
[2018-12-23] MEDS: [UNRECOGNIZED DRUG - REMARK] XX ×3 (02:00→17:01)
[2018-12-23] MEDS: GABAPENTIN (50 MG/ML PO SYG) PEG ×3 (05:14→21:45)
[2018-12-23] MEDS: DIAZEPAM 5 MG TAB PEG ×3 (05:14→21:45)
[2018-12-23] MEDS: LEVOTHYROXINE 100 MCG VIAL IV (05:14)
[2018-12-23] MEDS: NPH, HUMAN INSULIN ISOPHANE 3ML VIAL SC ×3 (05:31→22:00)
[2018-12-23] MEDS: LANTHANUM 500 MG CHEW PEG ×3 (08:21→17:00)
[2018-12-23] MEDS: FAMOTIDINE 20 MG TAB PEG (08:21)
[2018-12-23] MEDS: SEVELAMER CARBONATE 0.8 GM PKT GTB ×3 (08:21→17:00)
[2018-12-23] MEDS: VORICONAZOLE 200 MG TAB PO ×2 (08:21→21:45)
[2018-12-23] MEDS: SEVELAMER CARBONATE 2.4 GM PKT GTB ×3 (08:21→17:00)
[2018-12-23] MEDS: COLLAGENASE 5 GM (UD JAR) TOP (08:21)
[2018-12-23] MEDS: BUSPIRONE 5 MG TAB PEG ×3 (08:21→21:45)
[2018-12-23] MEDS: SERTRALINE 100 MG TAB PEG (08:21)
[2018-12-23] MEDS: CALCIUM ACETATE 667 MG CAP PEG ×3 (08:21→17:00)
[2018-12-23] MEDS: MEROPENEM 500MG/50 ML (PMX) 50 ML IVPB ×2 (08:22→21:44)
[2018-12-23] MEDS: MIDODRINE 5 MG TAB PEG ×3 (08:23→21:00)
[2018-12-23] MEDS: HYDROCORTISONE 5 MG TAB NGT ×4 (09:00→21:45)
[2018-12-23] MEDS: [UNRECOGNIZED DRUG - REMARK] XX ×2 (14:37→23:00)
[2018-12-23] MEDS ORDERED: HEPARIN 1000 UNITS/ML 10 ML INJ ×2 (18:18→18:50)
[2018-12-23] MEDS ORDERED: SOD CHLORIDE 0.9% 500 ML (18:20)
[2018-12-23] MEDS ORDERED: FENTAnyl 50 MCG/ML VIAL ×2 (18:20→18:32)
[2018-12-23] MEDS ORDERED: MIDAZOLAM 1 MG/ML 2 ML INJ ×2 (18:20→18:32)
[2018-12-23] MEDS ORDERED: LIDOCAINE 1% (MDV) 20 ML INJ (18:50)
[2018-12-23] MEDS: HYDROmorphONE 0.5 MG/0.5 ML SYG IV (20:00)
[2018-12-24] MEDS: ACETAMINOPHEN 650MG/20.3ML CUP PEG ×5 (00:06→23:16)
[2018-12-24] MEDS: INSULIN ASPART [NOVOLOG] 3 ML PEN SC ×6 (00:11→20:17)
[2018-12-24] MEDS: morphine 2 MG INJ IV ×3 (00:55→12:08)
[2018-12-24] MEDS: ACCU-CHEK XX ×6 (01:21→20:17)
[2018-12-24] MEDS: [UNRECOGNIZED DRUG - REMARK] XX ×3 (02:00→17:07)
[2018-12-24] MEDS: LEVOTHYROXINE 100 MCG VIAL IV (05:59)
[2018-12-24] MEDS: DIAZEPAM 5 MG TAB PEG ×3 (06:00→23:14)
[2018-12-24] MEDS: GABAPENTIN (50 MG/ML PO SYG) PEG ×3 (06:05→23:14)
[2018-12-24] MEDS: NPH, HUMAN INSULIN ISOPHANE 3ML VIAL SC ×3 (06:07→23:39)
[2018-12-24] MEDS: [UNRECOGNIZED DRUG - REMARK] XX ×2 (07:00→14:21)
[2018-12-24] MEDS: MIDODRINE 5 MG TAB PEG ×3 (09:00→20:07)
[2018-12-24] MEDS: COLLAGENASE 5 GM (UD JAR) TOP (09:30)
[2018-12-24] MEDS: HYDROCORTISONE 5 MG TAB NGT ×3 (09:31→20:07)
[2018-12-24] MEDS: BUSPIRONE 5 MG TAB PEG ×3 (09:31→20:07)
[2018-12-24] MEDS: MEROPENEM 500MG/50 ML (PMX) 50 ML IVPB (09:31)
[2018-12-24] MEDS: VORICONAZOLE 200 MG TAB PO ×2 (09:31→20:07)
[2018-12-24] MEDS: SEVELAMER CARBONATE 2.4 GM PKT GTB ×3 (09:32→17:15)
[2018-12-24] MEDS: SEVELAMER CARBONATE 0.8 GM PKT GTB ×3 (09:32→17:15)
[2018-12-24] MEDS: CALCIUM ACETATE 667 MG CAP PEG ×3 (09:32→17:16)
[2018-12-24] MEDS: FAMOTIDINE 20 MG TAB PEG (09:33)
[2018-12-24] MEDS: LANTHANUM 500 MG CHEW PEG ×3 (09:33→17:15)
[2018-12-24] MEDS: SERTRALINE 100 MG TAB PEG (09:33)
[2018-12-24] MEDS: LEVOFLOXACIN 250 MG TAB NGT (17:16)
[2018-12-25] MEDS: HEPARIN 1000 UNITS/ML 10 ML INJ CATHETER (00:07)
[2018-12-25] MEDS: HYDROmorphONE 0.5 MG/0.5 ML SYG IV ×4 (00:30→18:34)
[2018-12-25] MEDS: INSULIN ASPART [NOVOLOG] 3 ML PEN SC ×6 (01:00→20:41)
[2018-12-25] MEDS: ACCU-CHEK XX ×6 (01:16→21:28)
[2018-12-25] MEDS: [UNRECOGNIZED DRUG - REMARK] XX ×3 (01:59→17:42)
[2018-12-25] MEDS: LORAZEPAM 0.5 MG TAB NGT (04:20)
[2018-12-25] MEDS: LEVOTHYROXINE 100 MCG VIAL IV (05:49)
[2018-12-25] MEDS: DIAZEPAM 5 MG TAB PEG ×3 (05:49→22:51)
[2018-12-25] MEDS: ACETAMINOPHEN 650MG/20.3ML CUP PEG ×3 (05:49→17:42)
[2018-12-25] MEDS: GABAPENTIN (50 MG/ML PO SYG) PEG ×3 (05:50→22:51)
[2018-12-25] MEDS: NPH, HUMAN INSULIN ISOPHANE 3ML VIAL SC ×3 (06:17→22:57)
[2018-12-25] MEDS: MIDODRINE 5 MG TAB PEG ×3 (09:00→20:24)
[2018-12-25] MEDS: LANTHANUM 500 MG CHEW PEG ×3 (09:13→17:41)
[2018-12-25] MEDS: SEVELAMER CARBONATE 0.8 GM PKT GTB ×3 (09:13→17:41)
[2018-12-25] MEDS: SEVELAMER CARBONATE 2.4 GM PKT GTB ×3 (09:13→17:42)
[2018-12-25] MEDS: FAMOTIDINE 20 MG TAB PEG (09:13)
[2018-12-25] MEDS: COLLAGENASE 5 GM (UD JAR) TOP (09:13)
[2018-12-25] MEDS: CALCIUM ACETATE 667 MG CAP PEG ×3 (09:14→17:41)
[2018-12-25] MEDS: SERTRALINE 100 MG TAB PEG (09:14)
[2018-12-25] MEDS: VORICONAZOLE 200 MG TAB PO ×2 (09:14→20:23)
[2018-12-25] MEDS: HYDROCORTISONE 5 MG TAB NGT ×3 (09:14→20:24)
[2018-12-25] MEDS: BUSPIRONE 5 MG TAB PEG ×3 (09:14→20:24)
[2018-12-26] MEDS: ACETAMINOPHEN 650MG/20.3ML CUP PEG ×4 (00:15→17:28)
[2018-12-26] MEDS: INSULIN ASPART [NOVOLOG] 3 ML PEN SC ×6 (01:00→20:54)
[2018-12-26] MEDS: [UNRECOGNIZED DRUG - REMARK] XX ×2 (02:00→10:00)
[2018-12-26] MEDS: ACCU-CHEK XX ×6 (02:00→20:54)
[2018-12-26] MEDS: LEVOTHYROXINE 100 MCG VIAL IV (05:16)
[2018-12-26] MEDS: GABAPENTIN (50 MG/ML PO SYG) PEG ×3 (05:16→21:17)
[2018-12-26] MEDS: DIAZEPAM 5 MG TAB PEG ×3 (05:16→21:16)
[2018-12-26] MEDS: NPH, HUMAN INSULIN ISOPHANE 3ML VIAL SC ×3 (05:31→21:27)
[2018-12-26] MEDS: HYDROmorphONE 0.5 MG/0.5 ML SYG IV ×3 (06:19→18:49)
[2018-12-26 09:20] LABS: ADD MAN DIFF? NO
[2018-12-26 09:21] LABS: WHITE BLOOD COUNT 6.7 10^3/ul (4.8-10.8)
[2018-12-26 09:21] LABS: BASOPHIL # 0.1 10^3/ul (0.0-0.1); BASOPHILS % 0.9 % (0.0-2.0); EOSINOPHILS # 0.4 10^3/ul (0.0-0.5); EOSINOPHILS % 5.5 % (0.0-7.0); HEMATOCRIT 24.6 % (37.0-47.0); HEMOGLOBIN 7.4 g/dl (12.0-16.0); LYMPHOCYTES # 1.1 10^3/ul (0.8-2.9); LYMPHOCYTES % 16.8 % (15.0-51.0); MEAN CORPUSCULAR HEMOGLOBIN 32.6 pg (29.0-33.0); MEAN CORPUSCULAR HGB CONC 30.1 g/dl (32.0-37.0); MEAN CORPUSCULAR VOLUME 108.4 fl (82.0-101.0); MEAN PLATELET VOLUME 11.1 fl (7.4-10.4); MONOCYTE # 0.7 10^3/ul (0.3-0.9); MONOCYTES % 10.6 % (0.0-11.0); NEUTROPHIL # 4.4 10^3/ul (1.6-7.5); NEUTROPHILS % 65.5 % (39.0-77.0); PLATELET COUNT 209 10^3/UL (140-415); RED BLOOD COUNT 2.27 10^6/ul (4.20-5.40); RED CELL DISTRIBUTION WIDTH 17.8 % (11.5-14.5)
[2018-12-26] MEDS: SERTRALINE 100 MG TAB PEG (09:30)
[2018-12-26] MEDS: LANTHANUM 500 MG CHEW PEG ×3 (09:30→17:19)
[2018-12-26] MEDS: FAMOTIDINE 20 MG TAB PEG (09:30)
[2018-12-26] MEDS: VORICONAZOLE 200 MG TAB PO ×2 (09:30→21:17)
[2018-12-26] MEDS: BUSPIRONE 5 MG TAB PEG ×3 (09:30→21:16)
[2018-12-26] MEDS: CALCIUM ACETATE 667 MG CAP PEG ×3 (09:30→17:19)
[2018-12-26] MEDS: SEVELAMER CARBONATE 0.8 GM PKT GTB ×3 (09:31→17:19)
[2018-12-26] MEDS: MIDODRINE 5 MG TAB PEG ×3 (09:31→21:00)
[2018-12-26] MEDS: HYDROCORTISONE 5 MG TAB NGT ×3 (09:31→23:19)
[2018-12-26] MEDS: SEVELAMER CARBONATE 2.4 GM PKT GTB ×3 (09:31→17:19)
[2018-12-26] MEDS: COLLAGENASE 5 GM (UD JAR) TOP (09:32)
[2018-12-26 09:40] LABS: ANION GAP 8 (5-13); BLOOD UREA NITROGEN 41 mg/dl (7-20); CALCIUM 9.4 mg/dl (8.4-10.2); CARBON DIOXIDE 28 mmol/L (21-31); CHLORIDE 99 mmol/L (97-110); CREATININE 4.52 mg/dl (0.44-1.00); Estimated GFR 11 mL/min (>60); GLUCOSE 104 mg/dl (70-220); POTASSIUM 5.4 mmol/L (3.5-5.1); SODIUM 135 mmol/L (135-144)
[2018-12-26] MEDS: LEVOFLOXACIN 250 MG TAB NGT (17:19)
[2018-12-26] MEDS: morphine 2 MG INJ IV (21:13)
[2018-12-27] MEDS: DEXTROSE 50% 50 ML SYRINGE IV ×4 (00:49→18:24)
[2018-12-27] MEDS: ACETAMINOPHEN 650MG/20.3ML CUP PEG ×4 (00:52→17:33)
[2018-12-27] MEDS: INSULIN ASPART [NOVOLOG] 3 ML PEN SC ×6 (00:54→22:10)
[2018-12-27] MEDS: ACCU-CHEK XX ×6 (00:54→22:10)
[2018-12-27] MEDS: HYDROmorphONE 0.5 MG/0.5 ML SYG IV ×5 (04:47→22:32)
[2018-12-27] MEDS: LEVOTHYROXINE 100 MCG VIAL IV (05:40)
[2018-12-27] MEDS: GABAPENTIN (50 MG/ML PO SYG) PEG ×3 (05:40→22:33)
[2018-12-27] MEDS: DIAZEPAM 5 MG TAB PEG ×3 (05:41→22:33)
[2018-12-27] MEDS: DEXTROSE 5% 1,000 ML IV (06:37)
[2018-12-27] MEDS: MIDODRINE 5 MG TAB PEG ×3 (09:00→21:00)
[2018-12-27] MEDS: BUSPIRONE 5 MG TAB PEG ×3 (09:36→22:33)
[2018-12-27] MEDS: HYDROCORTISONE 5 MG TAB NGT ×3 (09:36→22:33)
[2018-12-27] MEDS: COLLAGENASE 5 GM (UD JAR) TOP (09:36)
[2018-12-27] MEDS: SERTRALINE 100 MG TAB PEG (09:36)
[2018-12-27] MEDS: FAMOTIDINE 20 MG TAB PEG (09:36)
[2018-12-27] MEDS: LANTHANUM 500 MG CHEW PEG ×3 (09:37→17:33)
[2018-12-27] MEDS: SEVELAMER CARBONATE 2.4 GM PKT GTB ×3 (09:37→17:33)
[2018-12-27] MEDS: CALCIUM ACETATE 667 MG CAP PEG ×3 (09:37→17:33)
[2018-12-27] MEDS: SEVELAMER CARBONATE 0.8 GM PKT GTB ×3 (09:37→17:33)
[2018-12-27] MEDS: VORICONAZOLE 200 MG TAB PO ×2 (09:37→22:33)
[2018-12-27] MEDS: morphine 2 MG INJ IV (11:15)
[2018-12-27] MEDS ORDERED: NPH, HUMAN INSULIN ISOPHANE 3ML VIAL SC ×2 (14:00)
[2018-12-27] MEDS: DEXTROSE 10% 1,000 ML IV (19:52)
[2018-12-27] MEDS: NPH, HUMAN INSULIN ISOPHANE 3ML VIAL SC (22:00)
[2018-12-28] MEDS: ACETAMINOPHEN 650MG/20.3ML CUP PEG ×4 (00:40→17:50)
[2018-12-28] MEDS: INSULIN ASPART [NOVOLOG] 3 ML PEN SC ×6 (00:59→21:00)
[2018-12-28] MEDS: ACCU-CHEK XX ×6 (01:00→21:00)
[2018-12-28] MEDS: HYDROmorphONE 0.5 MG/0.5 ML SYG IV ×2 (02:21→22:14)
[2018-12-28] MEDS: LEVOTHYROXINE 100 MCG VIAL IV (05:12)
[2018-12-28] MEDS: DIAZEPAM 5 MG TAB PEG ×3 (05:12→22:13)
[2018-12-28] MEDS: GABAPENTIN (50 MG/ML PO SYG) PEG ×3 (05:12→22:13)
[2018-12-28] MEDS: DIPHENHYDRAMINE 50 MG CAP PEG (05:27)
[2018-12-28] MEDS: NPH, HUMAN INSULIN ISOPHANE 3ML VIAL SC ×3 (05:39→22:43)
[2018-12-28] MEDS: ALTEPLASE (CATHFLO) 2 MG INJ CATHETER ×2 (06:06→06:09)
[2018-12-28] MEDS: MIDODRINE 5 MG TAB PEG ×3 (09:00→21:00)
[2018-12-28] MEDS: COLLAGENASE 5 GM (UD JAR) TOP (09:27)
[2018-12-28] MEDS: FAMOTIDINE 20 MG TAB PEG (09:27)
[2018-12-28] MEDS: CALCIUM ACETATE 667 MG CAP PEG ×3 (09:27→17:51)
[2018-12-28] MEDS: SEVELAMER CARBONATE 2.4 GM PKT GTB ×3 (09:27→17:50)
[2018-12-28] MEDS: SEVELAMER CARBONATE 0.8 GM PKT GTB ×3 (09:27→17:50)
[2018-12-28] MEDS: BUSPIRONE 5 MG TAB PEG ×3 (09:28→22:12)
[2018-12-28] MEDS: SERTRALINE 100 MG TAB PEG (09:28)
[2018-12-28] MEDS: HYDROCORTISONE 5 MG TAB NGT ×3 (09:28→22:13)
[2018-12-28] MEDS: VORICONAZOLE 200 MG TAB PO ×2 (09:28→22:13)
[2018-12-28] MEDS: LANTHANUM 500 MG CHEW PEG ×3 (09:28→17:51)
[2018-12-28 11:37] LABS: ADD MAN DIFF? NO
[2018-12-28] MEDS: morphine 2 MG INJ IV ×2 (11:41→18:20)
[2018-12-28 11:51] LABS: WHITE BLOOD COUNT 8.7 10^3/ul (4.8-10.8)
[2018-12-28 11:51] LABS: BASOPHIL # 0.1 10^3/ul (0.0-0.1); BASOPHILS % 1.1 % (0.0-2.0); EOSINOPHILS # 0.3 10^3/ul (0.0-0.5); EOSINOPHILS % 3.4 % (0.0-7.0); HEMATOCRIT 24.6 % (37.0-47.0); HEMOGLOBIN 7.4 g/dl (12.0-16.0); LYMPHOCYTES # 0.9 10^3/ul (0.8-2.9); LYMPHOCYTES % 10.8 % (15.0-51.0); MEAN CORPUSCULAR HGB CONC 30.1 g/dl (32.0-37.0); MEAN CORPUSCULAR VOLUME 109.8 fl (82.0-101.0); MEAN PLATELET VOLUME 10.8 fl (7.4-10.4); MONOCYTE # 0.6 10^3/ul (0.3-0.9); MONOCYTES % 7.1 % (0.0-11.0); NEUTROPHIL # 6.7 10^3/ul (1.6-7.5); NEUTROPHILS % 77.1 % (39.0-77.0); PLATELET COUNT 226 10^3/UL (140-415); RED BLOOD COUNT 2.24 10^6/ul (4.20-5.40); RED CELL DISTRIBUTION WIDTH 17.2 % (11.5-14.5)
[2018-12-28 12:05] LABS: ANION GAP 8 (5-13); BLOOD UREA NITROGEN 41 mg/dl (7-20); CALCIUM 9.3 mg/dl (8.4-10.2); CARBON DIOXIDE 30 mmol/L (21-31); CHLORIDE 95 mmol/L (97-110); CREATININE 4.25 mg/dl (0.44-1.00); Estimated GFR 11 mL/min (>60); GLUCOSE 97 mg/dl (70-220); POTASSIUM 5.5 mmol/L (3.5-5.1); SODIUM 133 mmol/L (135-144)
[2018-12-28] MEDS: LEVOFLOXACIN 250 MG TAB NGT (17:50)
[2018-12-28] MEDS: DEXTROSE 10% 1,000 ML IV (20:00)
[2018-12-28] MEDS: ALBUMIN HUMAN 25% 100 ML IV (20:07)
[2018-12-28 20:58] LABS: HEPATITIS B SURFACE ANTIGEN NEGATIVE (NEGATIVE)
[2018-12-28] MEDS: HEPARIN 1000 UNITS/ML 10 ML INJ CATHETER (21:52)
[2018-12-28] MEDS: [UNRECOGNIZED DRUG - REMARK] XX (23:45)
[2018-12-29] MEDS: ACETAMINOPHEN 650MG/20.3ML CUP PEG ×4 (00:34→18:14)
[2018-12-29] MEDS: INSULIN ASPART [NOVOLOG] 3 ML PEN SC ×6 (01:00→21:00)
[2018-12-29] MEDS: ACCU-CHEK XX ×6 (01:12→21:00)
[2018-12-29] MEDS: morphine 2 MG INJ IV (01:17)
[2018-12-29] MEDS: DIPHENHYDRAMINE 50 MG CAP PEG (03:07)
[2018-12-29] MEDS: LEVOTHYROXINE 100 MCG VIAL IV (05:07)
[2018-12-29] MEDS: DIAZEPAM 5 MG TAB PEG ×3 (05:08→21:12)
[2018-12-29] MEDS: GABAPENTIN (50 MG/ML PO SYG) PEG ×3 (05:08→21:12)
[2018-12-29] MEDS: NPH, HUMAN INSULIN ISOPHANE 3ML VIAL SC ×3 (05:21→21:41)
[2018-12-29] MEDS: DEXTROSE 10% 1,000 ML IV (05:43)
[2018-12-29 06:41] LABS: ADD MAN DIFF? NO
[2018-12-29 06:58] LABS: BASOPHIL # 0.1 10^3/ul (0.0-0.1); BASOPHILS % 0.9 % (0.0-2.0); EOSINOPHILS # 0.3 10^3/ul (0.0-0.5); EOSINOPHILS % 3.4 % (0.0-7.0); HEMATOCRIT 22.9 % (37.0-47.0); LYMPHOCYTES # 0.7 10^3/ul (0.8-2.9); LYMPHOCYTES % 8.7 % (15.0-51.0); MEAN CORPUSCULAR HEMOGLOBIN 33.5 pg (29.0-33.0); MEAN CORPUSCULAR HGB CONC 30.6 g/dl (32.0-37.0); MEAN CORPUSCULAR VOLUME 109.6 fl (82.0-101.0); MEAN PLATELET VOLUME 11.2 fl (7.4-10.4); MONOCYTE # 0.8 10^3/ul (0.3-0.9); MONOCYTES % 9.1 % (0.0-11.0); NEUTROPHIL # 6.5 10^3/ul (1.6-7.5); NEUTROPHILS % 77.4 % (39.0-77.0); PLATELET COUNT 218 10^3/UL (140-415); RED BLOOD COUNT 2.09 10^6/ul (4.20-5.40); RED CELL DISTRIBUTION WIDTH 16.7 % (11.5-14.5)
[2018-12-29 06:58] LABS: WHITE BLOOD COUNT 8.4 10^3/ul (4.8-10.8)
[2018-12-29 07:41] LABS: ANION GAP 8 (5-13); BLOOD UREA NITROGEN 30 mg/dl (7-20); CALCIUM 8.9 mg/dl (8.4-10.2); CARBON DIOXIDE 29 mmol/L (21-31); CHLORIDE 97 mmol/L (97-110); CREATININE 3.15 mg/dl (0.44-1.00); Estimated GFR 16 mL/min (>60); GLUCOSE 102 mg/dl (70-220); POTASSIUM 4.9 mmol/L (3.5-5.1); SODIUM 134 mmol/L (135-144)
[2018-12-29] MEDS: [UNRECOGNIZED DRUG - REMARK] XX ×3 (07:45→23:45)
[2018-12-29] MEDS: MIDODRINE 5 MG TAB PEG ×3 (09:00→21:00)
[2018-12-29] MEDS: LANTHANUM 500 MG CHEW PEG ×3 (09:35→18:13)
[2018-12-29] MEDS: VORICONAZOLE 200 MG TAB PO ×2 (09:36→21:12)
[2018-12-29] MEDS: HYDROCORTISONE 5 MG TAB NGT ×3 (09:36→21:12)
[2018-12-29] MEDS: BUSPIRONE 5 MG TAB PEG ×3 (09:36→21:13)
[2018-12-29] MEDS: SEVELAMER CARBONATE 2.4 GM PKT GTB ×3 (09:36→18:14)
[2018-12-29] MEDS: SEVELAMER CARBONATE 0.8 GM PKT GTB ×3 (09:36→18:14)
[2018-12-29] MEDS: CALCIUM ACETATE 667 MG CAP PEG ×3 (09:38→18:13)
[2018-12-29] MEDS: FAMOTIDINE 20 MG TAB PEG (09:38)
[2018-12-29] MEDS: SERTRALINE 100 MG TAB PEG (09:38)
[2018-12-29] MEDS: COLLAGENASE 5 GM (UD JAR) TOP (09:39)
[2018-12-29] MEDS: DEXTROSE 50% 50 ML SYRINGE IV ×2 (09:47→10:23)
[2018-12-29] MEDS: HYDROmorphONE 0.5 MG/0.5 ML SYG IV ×3 (10:29→18:13)
[2018-12-29] MEDS: HYDROCORTISONE 5 MG TAB PEG (14:28)
[2018-12-30] MEDS: ACETAMINOPHEN 650MG/20.3ML CUP PEG ×4 (00:32→17:25)
[2018-12-30] MEDS: ACCU-CHEK XX ×6 (01:00→21:00)
[2018-12-30] MEDS: INSULIN ASPART [NOVOLOG] 3 ML PEN SC ×6 (01:00→21:00)
[2018-12-30] MEDS: HYDROmorphONE 0.5 MG/0.5 ML SYG IV ×3 (01:28→22:52)
[2018-12-30] MEDS: GABAPENTIN (50 MG/ML PO SYG) PEG ×3 (05:33→21:02)
[2018-12-30] MEDS: LEVOTHYROXINE 100 MCG VIAL IV (05:33)
[2018-12-30] MEDS: DIAZEPAM 5 MG TAB PEG ×3 (05:33→21:01)
[2018-12-30] MEDS: NPH, HUMAN INSULIN ISOPHANE 3ML VIAL SC ×3 (05:54→21:07)
[2018-12-30 06:46] LABS: ADD MAN DIFF? NO
[2018-12-30 06:49] LABS: WHITE BLOOD COUNT 7.8 10^3/ul (4.8-10.8)
[2018-12-30 06:49] LABS: ABNORMAL IP MESSAGE 1; BASOPHIL # 0.1 10^3/ul (0.0-0.1); BASOPHILS % 0.8 % (0.0-2.0); EOSINOPHILS # 0.2 10^3/ul (0.0-0.5); HEMATOCRIT 21.8 % (37.0-47.0); LYMPHOCYTES # 0.7 10^3/ul (0.8-2.9); LYMPHOCYTES % 9.1 % (15.0-51.0); MEAN CORPUSCULAR HEMOGLOBIN 33.8 pg (29.0-33.0); MEAN CORPUSCULAR HGB CONC 31.2 g/dl (32.0-37.0); MEAN CORPUSCULAR VOLUME 108.5 fl (82.0-101.0); MEAN PLATELET VOLUME 10.9 fl (7.4-10.4); MONOCYTE # 0.7 10^3/ul (0.3-0.9); MONOCYTES % 8.3 % (0.0-11.0); NEUTROPHIL # 6.1 10^3/ul (1.6-7.5); NEUTROPHILS % 78.4 % (39.0-77.0); PLATELET COUNT 228 10^3/UL (140-415); RED BLOOD COUNT 2.01 10^6/ul (4.20-5.40); RED CELL DISTRIBUTION WIDTH 16.3 % (11.5-14.5)
[2018-12-30 06:52] LABS: HEMOGLOBIN 6.8 g/dl (12.0-16.0); POSITIVE DIFF @See below
[2018-12-30 07:11] LABS: ANION GAP 6 (5-13); BLOOD UREA NITROGEN 34 mg/dl (7-20); CALCIUM 9.2 mg/dl (8.4-10.2); CARBON DIOXIDE 28 mmol/L (21-31); CHLORIDE 93 mmol/L (97-110); CREATININE 3.85 mg/dl (0.44-1.00); Estimated GFR 13 mL/min (>60); GLUCOSE 146 mg/dl (70-220); POTASSIUM 5.4 mmol/L (3.5-5.1); SODIUM 127 mmol/L (135-144)
[2018-12-30] MEDS: [UNRECOGNIZED DRUG - REMARK] XX ×3 (07:45→23:45)
[2018-12-30] MEDS: SEVELAMER CARBONATE 2.4 GM PKT GTB ×3 (08:47→17:26)
[2018-12-30] MEDS: VORICONAZOLE 200 MG TAB PO ×2 (08:47→21:01)
[2018-12-30] MEDS: HYDROCORTISONE 5 MG TAB NGT ×3 (08:47→21:01)
[2018-12-30] MEDS: FAMOTIDINE 20 MG TAB PEG (08:47)
[2018-12-30] MEDS: BUSPIRONE 5 MG TAB PEG ×3 (08:47→21:01)
[2018-12-30] MEDS: CALCIUM ACETATE 667 MG CAP PEG ×3 (08:48→17:26)
[2018-12-30] MEDS: SEVELAMER CARBONATE 0.8 GM PKT GTB ×3 (08:48→17:25)
[2018-12-30] MEDS: SERTRALINE 100 MG TAB PEG (08:48)
[2018-12-30] MEDS: LANTHANUM 500 MG CHEW PEG ×3 (08:48→17:26)
[2018-12-30] MEDS: COLLAGENASE 5 GM (UD JAR) TOP (08:48)
[2018-12-30] MEDS: MIDODRINE 5 MG TAB PEG ×3 (08:48→21:00)
[2018-12-30 10:02] LABS: ANISOCYTOSIS 2+ (0-0); EOSINOPHILS % (M) 6 % (0-7); HYPOCHROMASIA 2+ (0-0); LYMPHOCYTES #M 0.6 10^3/ul (0.8-2.9); LYMPHOCYTES % (M) 8 % (15-51); MONOCYTE #M 0.5 10^3/ul (0.3-0.9); MONOCYTES % (M) 7 % (0-11); MYELOCYTES % (M) 1 % (0-0); PLATELET ESTIMATE NORMAL; POLYCHROMASIA 3+ (0-0); SEGMENTED NEUTROPHILS (M) % 78 % (39-77); SMUDGE%M 1 % (0-0)
[2018-12-30] MEDS: LEVOFLOXACIN 250 MG TAB NGT (15:26)
[2018-12-30] MEDS: HEPARIN 1000 UNITS/ML 10 ML INJ CATHETER (20:16)
[2018-12-30] MEDS: DIPHENHYDRAMINE 50 MG CAP PEG (22:52)
[2018-12-31] MEDS: INSULIN ASPART [NOVOLOG] 3 ML PEN SC ×6 (01:00→21:00)
[2018-12-31] MEDS: ACCU-CHEK XX ×6 (01:23→21:00)
[2018-12-31] MEDS: GABAPENTIN (50 MG/ML PO SYG) PEG ×3 (05:09→21:20)
[2018-12-31] MEDS: ACETAMINOPHEN 650MG/20.3ML CUP PEG ×4 (05:09→17:23)
[2018-12-31] MEDS: DIAZEPAM 5 MG TAB PEG ×3 (05:09→21:04)
[2018-12-31] MEDS: LEVOTHYROXINE 100 MCG VIAL IV (05:11)
[2018-12-31] MEDS: NPH, HUMAN INSULIN ISOPHANE 3ML VIAL SC ×3 (05:16→21:08)
[2018-12-31 07:33] LABS: ANION GAP 9 (5-13); BLOOD UREA NITROGEN 27 mg/dl (7-20); CALCIUM 8.8 mg/dl (8.4-10.2); CARBON DIOXIDE 29 mmol/L (21-31); CHLORIDE 96 mmol/L (97-110); CREATININE 3.14 mg/dl (0.44-1.00); Estimated GFR 16 mL/min (>60); GLUCOSE 111 mg/dl (70-220); POTASSIUM 4.9 mmol/L (3.5-5.1); SODIUM 134 mmol/L (135-144)
[2018-12-31] MEDS: [UNRECOGNIZED DRUG - REMARK] XX ×3 (07:45→23:45)
[2018-12-31] MEDS: MIDODRINE 5 MG TAB PEG ×3 (09:00→21:00)
[2018-12-31] MEDS: SEVELAMER CARBONATE 0.8 GM PKT GTB ×3 (09:04→17:23)
[2018-12-31] MEDS: LANTHANUM 500 MG CHEW PEG ×3 (09:04→17:23)
[2018-12-31] MEDS: COLLAGENASE 5 GM (UD JAR) TOP (09:04)
[2018-12-31] MEDS: CALCIUM ACETATE 667 MG CAP PEG ×3 (09:04→17:23)
[2018-12-31] MEDS: SEVELAMER CARBONATE 2.4 GM PKT GTB ×3 (09:04→17:23)
[2018-12-31] MEDS: HYDROCORTISONE 5 MG TAB NGT ×3 (09:05→21:03)
[2018-12-31] MEDS: BUSPIRONE 5 MG TAB PEG ×3 (09:05→21:03)
[2018-12-31] MEDS: VORICONAZOLE 200 MG TAB PO ×2 (09:05→21:03)
[2018-12-31] MEDS: SERTRALINE 100 MG TAB PEG (09:05)
[2018-12-31] MEDS: LORAZEPAM 2 MG INJ IV (09:05)
[2018-12-31] MEDS: FAMOTIDINE 20 MG TAB PEG (09:15)
[2018-12-31] MEDS: morphine 2 MG INJ IV (15:27)
[2018-12-31] MEDS: DIPHENHYDRAMINE 50 MG CAP PEG (21:44)
[2019-01-01] MEDS: ACCU-CHEK XX ×6 (01:00→21:00)
[2019-01-01] MEDS: INSULIN ASPART [NOVOLOG] 3 ML PEN SC ×6 (01:00→21:00)
[2019-01-01] MEDS: morphine 2 MG INJ IV (02:26)
[2019-01-01] MEDS: DIPHENHYDRAMINE 50 MG CAP PEG ×3 (03:26→21:08)
[2019-01-01] MEDS: ACETAMINOPHEN 650MG/20.3ML CUP PEG ×5 (05:45→23:36)
[2019-01-01] MEDS: LEVOTHYROXINE 100 MCG VIAL IV (05:46)
[2019-01-01] MEDS: DIAZEPAM 5 MG TAB PEG ×3 (05:48→21:05)
[2019-01-01] MEDS: GABAPENTIN (50 MG/ML PO SYG) PEG ×3 (05:48→21:05)
[2019-01-01] MEDS: NPH, HUMAN INSULIN ISOPHANE 3ML VIAL SC ×3 (05:48→21:07)
[2019-01-01] MEDS: [UNRECOGNIZED DRUG - REMARK] XX ×3 (08:41→23:32)
[2019-01-01] MEDS: ALBUMIN HUMAN 25% 100 ML IV (09:07)
[2019-01-01] MEDS: CALCIUM ACETATE 667 MG CAP PEG ×3 (09:36→18:04)
[2019-01-01] MEDS: COLLAGENASE 5 GM (UD JAR) TOP (09:36)
[2019-01-01] MEDS: FAMOTIDINE 20 MG TAB PEG (09:36)
[2019-01-01] MEDS: MIDODRINE 5 MG TAB PEG ×3 (09:37→21:00)
[2019-01-01] MEDS: BUSPIRONE 5 MG TAB PEG ×3 (09:37→21:04)
[2019-01-01] MEDS: LANTHANUM 500 MG CHEW PEG ×3 (09:37→18:04)
[2019-01-01] MEDS: VORICONAZOLE 200 MG TAB PO (09:37)
[2019-01-01] MEDS: SEVELAMER CARBONATE 0.8 GM PKT GTB ×3 (09:37→18:04)
[2019-01-01] MEDS: HYDROCORTISONE 5 MG TAB NGT ×3 (09:37→21:04)
[2019-01-01] MEDS: SERTRALINE 100 MG TAB PEG (09:38)
[2019-01-01] MEDS: SEVELAMER CARBONATE 2.4 GM PKT GTB ×3 (09:38→18:04)
[2019-01-01] MEDS: HEPARIN 1000 UNITS/ML 10 ML INJ CATHETER (11:03)
[2019-01-01] MEDS: HYDROmorphONE 0.5 MG/0.5 ML SYG IV ×3 (11:32→23:33)
[2019-01-02] MEDS: ACCU-CHEK XX ×6 (01:00→20:40)
[2019-01-02] MEDS: INSULIN ASPART [NOVOLOG] 3 ML PEN SC ×6 (02:04→21:05)
[2019-01-02] MEDS: LORAZEPAM 2 MG INJ IV (03:18)
[2019-01-02] MEDS: LEVOTHYROXINE 100 MCG VIAL IV (06:03)
[2019-01-02] MEDS: GABAPENTIN (50 MG/ML PO SYG) PEG ×3 (06:04→22:08)
[2019-01-02] MEDS: DIAZEPAM 5 MG TAB PEG ×3 (06:04→22:08)
[2019-01-02] MEDS: ACETAMINOPHEN 650MG/20.3ML CUP PEG ×3 (06:05→17:55)
[2019-01-02] MEDS: NPH, HUMAN INSULIN ISOPHANE 3ML VIAL SC ×3 (06:06→22:21)
[2019-01-02] MEDS: morphine 2 MG INJ IV ×3 (06:08→20:54)
[2019-01-02] MEDS: [UNRECOGNIZED DRUG - REMARK] XX ×3 (07:45→23:45)
[2019-01-02] MEDS: HYDROmorphONE 0.5 MG/0.5 ML SYG IV ×2 (07:50→15:53)
[2019-01-02 07:51] LABS: ADD MAN DIFF? NO
[2019-01-02 08:25] LABS: WHITE BLOOD COUNT 7.9 10^3/ul (4.8-10.8)
[2019-01-02 08:25] LABS: ABNORMAL IP MESSAGE 1; BASOPHIL # 0.1 10^3/ul (0.0-0.1); BASOPHILS % 0.9 % (0.0-2.0); EOSINOPHILS # 0.3 10^3/ul (0.0-0.5); EOSINOPHILS % 3.7 % (0.0-7.0); HEMATOCRIT 20.9 % (37.0-47.0); LYMPHOCYTES # 0.9 10^3/ul (0.8-2.9); LYMPHOCYTES % 11.7 % (15.0-51.0); MEAN CORPUSCULAR HEMOGLOBIN 33.5 pg (29.0-33.0); MEAN CORPUSCULAR HGB CONC 31.1 g/dl (32.0-37.0); MEAN CORPUSCULAR VOLUME 107.7 fl (82.0-101.0); MEAN PLATELET VOLUME 10.9 fl (7.4-10.4); MONOCYTE # 1.1 10^3/ul (0.3-0.9); MONOCYTES % 13.6 % (0.0-11.0); NEUTROPHIL # 5.5 10^3/ul (1.6-7.5); NEUTROPHILS % 69.3 % (39.0-77.0); PLATELET COUNT 211 10^3/UL (140-415); RED BLOOD COUNT 1.94 10^6/ul (4.20-5.40); RED CELL DISTRIBUTION WIDTH 15.9 % (11.5-14.5)
[2019-01-02 08:41] LABS: ANION GAP 5 (5-13); BLOOD UREA NITROGEN 29 mg/dl (7-20); CALCIUM 9.1 mg/dl (8.4-10.2); CARBON DIOXIDE 29 mmol/L (21-31); CHLORIDE 98 mmol/L (97-110); CREATININE 3.09 mg/dl (0.44-1.00); Estimated GFR 17 mL/min (>60); GLUCOSE 137 mg/dl (70-220); SODIUM 132 mmol/L (135-144)
[2019-01-02 08:50] LABS: POTASSIUM 5.3 mmol/L (3.5-5.1)
[2019-01-02] MEDS: BUSPIRONE 5 MG TAB PEG ×3 (09:02→20:39)
[2019-01-02] MEDS: FAMOTIDINE 20 MG TAB PEG (09:02)
[2019-01-02] MEDS: HYDROCORTISONE 5 MG TAB NGT ×3 (09:02→20:40)
[2019-01-02] MEDS: CALCIUM ACETATE 667 MG CAP PEG ×3 (09:03→17:54)
[2019-01-02] MEDS: SEVELAMER CARBONATE 0.8 GM PKT GTB ×3 (09:03→17:54)
[2019-01-02] MEDS: SEVELAMER CARBONATE 2.4 GM PKT GTB ×3 (09:04→17:54)
[2019-01-02] MEDS: COLLAGENASE 5 GM (UD JAR) TOP (09:04)
[2019-01-02] MEDS: SERTRALINE 100 MG TAB PEG (09:04)
[2019-01-02 09:10] LABS: HEMOGLOBIN 6.5 g/dl (12.0-16.0); PATH REVIEW? YES; POSITIVE DIFF @See below
[2019-01-02] MEDS: LANTHANUM 500 MG CHEW PEG ×3 (09:12→17:54)
[2019-01-02] MEDS: MIDODRINE 5 MG TAB PEG ×3 (09:12→20:32)
[2019-01-02 10:41] LABS: ANISOCYTOSIS 2+ (0-0); BAND NEUTROPHILS #M 0.7 10^3/ul (0.0-0.6); BAND NEUTROPHILS % (M) 9 % (0-4); BASOPHIL #M 0.2 10^3/ul (0.0-0.0); BASOPHILS % (M) 3 % (0-2); EOSINOPHILS % (M) 5 % (0-7); GIANT THROMBO% (M) 1 % (0-0); HYPOCHROMASIA 2+ (0-0); LYMPHOCYTES #M 0.9 10^3/ul (0.8-2.9); LYMPHOCYTES % (M) 12 % (15-51); MONOCYTE #M 0.3 10^3/ul (0.3-0.9); MONOCYTES % (M) 4 % (0-11); PLATELET ESTIMATE NORMAL; POLYCHROMASIA 2+ (0-0); SEG NEUT #M 5.3 10^3/ul (1.6-7.5); SEGMENTED NEUTROPHILS (M) % 67 % (39-77); SMUDGE%M 6 % (0-0)
[2019-01-02] MEDS: DIPHENHYDRAMINE 50 MG CAP PEG (20:39)
[2019-01-02] MEDS: CIPROFLOXACIN HCL OTIC DROP 0.25 ML RIGHT EAR (20:40)
[2019-01-03] MEDS: ACETAMINOPHEN 650MG/20.3ML CUP PEG ×4 (00:56→17:38)
[2019-01-03] MEDS: morphine 2 MG INJ IV ×5 (01:04→22:15)
[2019-01-03] MEDS: INSULIN ASPART [NOVOLOG] 3 ML PEN SC ×6 (01:52→22:02)
[2019-01-03] MEDS: ACCU-CHEK XX ×6 (01:52→21:00)
[2019-01-03] MEDS: DIPHENHYDRAMINE 50 MG CAP PEG ×2 (06:02→21:44)
[2019-01-03] MEDS: DIAZEPAM 5 MG TAB PEG ×3 (06:06→22:15)
[2019-01-03] MEDS: LEVOTHYROXINE 100 MCG VIAL IV (06:11)
[2019-01-03] MEDS: GABAPENTIN (50 MG/ML PO SYG) PEG ×3 (06:17→21:19)
[2019-01-03] MEDS: NPH, HUMAN INSULIN ISOPHANE 3ML VIAL SC ×3 (06:29→22:03)
[2019-01-03] MEDS: [UNRECOGNIZED DRUG - REMARK] XX ×3 (07:45→23:45)
[2019-01-03] MEDS: MIDODRINE 5 MG TAB PEG ×3 (09:00→21:00)
[2019-01-03] MEDS: SEVELAMER CARBONATE 0.8 GM PKT GTB ×3 (11:04→17:38)
[2019-01-03] MEDS: HYDROCORTISONE 5 MG TAB NGT ×3 (11:07→21:19)
[2019-01-03] MEDS: CIPROFLOXACIN HCL OTIC DROP 0.25 ML RIGHT EAR ×2 (11:07→21:20)
[2019-01-03] MEDS: BUSPIRONE 5 MG TAB PEG ×3 (11:07→21:20)
[2019-01-03] MEDS: LANTHANUM 500 MG CHEW PEG ×3 (11:07→17:38)
[2019-01-03] MEDS: SERTRALINE 100 MG TAB PEG (11:07)
[2019-01-03] MEDS: SEVELAMER CARBONATE 2.4 GM PKT GTB ×3 (11:07→17:38)
[2019-01-03] MEDS: CALCIUM ACETATE 667 MG CAP PEG ×3 (11:08→17:38)
[2019-01-03] MEDS: COLLAGENASE 5 GM (UD JAR) TOP (11:08)
[2019-01-03] MEDS: FAMOTIDINE 20 MG TAB PEG (11:08)
[2019-01-03] MEDS: HEPARIN 1000 UNITS/ML 10 ML INJ CATHETER (12:03)
[2019-01-03] MEDS: HYDROmorphONE 0.5 MG/0.5 ML SYG IV (21:21)
[2019-01-04] MEDS: ACCU-CHEK XX ×6 (00:43→21:00)
[2019-01-04] MEDS: INSULIN ASPART [NOVOLOG] 3 ML PEN SC ×6 (00:43→21:00)
[2019-01-04] MEDS: morphine 2 MG INJ IV ×5 (01:35→17:10)
[2019-01-04] MEDS: DIPHENHYDRAMINE 50 MG CAP PEG ×2 (04:36→22:18)
[2019-01-04] MEDS: ACETAMINOPHEN 650MG/20.3ML CUP PEG ×4 (05:25→17:05)
[2019-01-04] MEDS: GABAPENTIN (50 MG/ML PO SYG) PEG ×3 (05:25→22:18)
[2019-01-04] MEDS: LEVOTHYROXINE 100 MCG VIAL IV (05:26)
[2019-01-04] MEDS: DIAZEPAM 5 MG TAB PEG ×3 (05:26→22:18)
[2019-01-04] MEDS: NPH, HUMAN INSULIN ISOPHANE 3ML VIAL SC ×3 (05:41→22:56)
[2019-01-04] MEDS: [UNRECOGNIZED DRUG - REMARK] XX ×3 (07:45→23:45)
[2019-01-04] MEDS: SEVELAMER CARBONATE 0.8 GM PKT GTB ×3 (09:18→17:05)
[2019-01-04] MEDS: MIDODRINE 5 MG TAB PEG ×3 (09:18→21:00)
[2019-01-04] MEDS: FAMOTIDINE 20 MG TAB PEG (09:18)
[2019-01-04] MEDS: COLLAGENASE 5 GM (UD JAR) TOP (09:18)
[2019-01-04] MEDS: SERTRALINE 100 MG TAB PEG (09:18)
[2019-01-04] MEDS: CALCIUM ACETATE 667 MG CAP PEG ×3 (09:19→17:04)
[2019-01-04] MEDS: BUSPIRONE 5 MG TAB PEG ×3 (09:19→22:18)
[2019-01-04] MEDS: SEVELAMER CARBONATE 2.4 GM PKT GTB ×3 (09:19→17:05)
[2019-01-04] MEDS: LANTHANUM 500 MG CHEW PEG ×3 (09:19→17:05)
[2019-01-04] MEDS: HYDROCORTISONE 5 MG TAB NGT ×3 (09:24→22:18)
[2019-01-04] MEDS: CIPROFLOXACIN HCL OTIC DROP 0.25 ML RIGHT EAR ×2 (09:26→22:19)
[2019-01-04 17:00] LABS: ANION GAP 5 (5-13); BLOOD UREA NITROGEN 34 mg/dl (7-20); CALCIUM 9.1 mg/dl (8.4-10.2); CARBON DIOXIDE 31 mmol/L (21-31); CHLORIDE 97 mmol/L (97-110); CREATININE 3.44 mg/dl (0.44-1.00); Estimated GFR 15 mL/min (>60); GLUCOSE 96 mg/dl (70-220); POTASSIUM 5.5 mmol/L (3.5-5.1); SODIUM 133 mmol/L (135-144)
[2019-01-04] MEDS: GUAIFENESIN 20 MG/ML 5ML CUP GTB (17:05)
[2019-01-05] MEDS: INSULIN ASPART [NOVOLOG] 3 ML PEN SC ×6 (01:00→20:34)
[2019-01-05] MEDS: morphine 2 MG INJ IV ×5 (01:19→23:55)
[2019-01-05] MEDS: ACCU-CHEK XX ×6 (01:26→20:34)
[2019-01-05] MEDS: DIPHENHYDRAMINE 50 MG CAP PEG ×2 (05:57→20:16)
[2019-01-05] MEDS: GABAPENTIN (50 MG/ML PO SYG) PEG ×3 (05:57→21:05)
[2019-01-05] MEDS: DIAZEPAM 5 MG TAB PEG ×3 (05:57→20:16)
[2019-01-05] MEDS: ACETAMINOPHEN 650MG/20.3ML CUP PEG ×5 (05:57→23:55)
[2019-01-05] MEDS: NPH, HUMAN INSULIN ISOPHANE 3ML VIAL SC ×3 (06:00→21:08)
[2019-01-05] MEDS: [UNRECOGNIZED DRUG - REMARK] XX ×3 (07:45→23:45)
[2019-01-05] MEDS: LEVOTHYROXINE 200 MCG VIAL IV (09:14)
[2019-01-05] MEDS: COLLAGENASE 5 GM (UD JAR) TOP (09:15)
[2019-01-05] MEDS: CIPROFLOXACIN HCL OTIC DROP 0.25 ML RIGHT EAR ×2 (09:15→20:15)
[2019-01-05] MEDS: MIDODRINE 5 MG TAB PEG ×3 (09:17→20:17)
[2019-01-05] MEDS: CALCIUM ACETATE 667 MG CAP PEG ×3 (09:18→17:29)
[2019-01-05] MEDS: LANTHANUM 500 MG CHEW PEG ×3 (09:18→17:29)
[2019-01-05] MEDS: HYDROCORTISONE 5 MG TAB NGT ×3 (09:19→20:16)
[2019-01-05] MEDS: FAMOTIDINE 20 MG TAB PEG (09:19)
[2019-01-05] MEDS: SERTRALINE 100 MG TAB PEG (09:19)
[2019-01-05] MEDS: SEVELAMER CARBONATE 0.8 GM PKT GTB ×3 (09:19→17:31)
[2019-01-05] MEDS: BUSPIRONE 5 MG TAB PEG ×3 (09:20→20:16)
[2019-01-05] MEDS: SEVELAMER CARBONATE 2.4 GM PKT GTB ×3 (09:21→17:31)
[2019-01-05] MEDS ORDERED: SALINE 0.65% 45 ML NAS SPRAY NASAL (11:30)
[2019-01-05] MEDS ORDERED: EPOETIN ALFA-EPBX (ESRD) 3,000 UNIT/ML VIAL SC (13:00)
[2019-01-05] MEDS: GLUCOSE GEL 15 GRAM TUBE PO (15:49)
[2019-01-05] MEDS: HEPARIN 1000 UNITS/ML 10 ML INJ CATHETER (19:07)
[2019-01-05] MEDS: EPOETIN ALFA-EPBX (ESRD) 3,000 UNIT/ML VIAL SC (19:49)
[2019-01-05] MEDS: GUAIFENESIN 20 MG/ML 5ML CUP GTB (20:15)
[2019-01-05] MEDS: HYDROmorphONE 0.5 MG/0.5 ML SYG IV (20:42)
[2019-01-06] MEDS: INSULIN ASPART [NOVOLOG] 3 ML PEN SC ×6 (01:00→21:00)
[2019-01-06] MEDS: ACCU-CHEK XX ×6 (01:00→21:53)
[2019-01-06] MEDS: HYDROmorphONE 0.5 MG/0.5 ML SYG IV (02:32)
[2019-01-06] MEDS: LORAZEPAM 0.5 MG TAB NGT (02:40)
[2019-01-06] MEDS: DIPHENHYDRAMINE 50 MG CAP PEG ×3 (02:40→22:42)
[2019-01-06] MEDS: NPH, HUMAN INSULIN ISOPHANE 3ML VIAL SC ×3 (06:00→21:58)
[2019-01-06] MEDS: GABAPENTIN (50 MG/ML PO SYG) PEG ×3 (06:05→21:44)
[2019-01-06] MEDS: ACETAMINOPHEN 650MG/20.3ML CUP PEG ×3 (06:06→17:48)
[2019-01-06] MEDS: DIAZEPAM 5 MG TAB PEG ×3 (06:06→21:44)
[2019-01-06] MEDS: LEVOTHYROXINE 100 MCG VIAL IV (06:27)
[2019-01-06] MEDS: DEXTROSE 50% 50 ML SYRINGE IV (06:31)
[2019-01-06 06:48] LABS: ADD MAN DIFF? NO
[2019-01-06 06:50] LABS: WHITE BLOOD COUNT 4.8 10^3/ul (4.8-10.8)
[2019-01-06 06:50] LABS: ABNORMAL IP MESSAGE 1; BASOPHILS % 0.8 % (0.0-2.0); EOSINOPHILS # 0.2 10^3/ul (0.0-0.5); EOSINOPHILS % 3.7 % (0.0-7.0); HEMATOCRIT 20.9 % (37.0-47.0); LYMPHOCYTES # 0.6 10^3/ul (0.8-2.9); LYMPHOCYTES % 11.6 % (15.0-51.0); MEAN CORPUSCULAR HEMOGLOBIN 32.6 pg (29.0-33.0); MEAN CORPUSCULAR HGB CONC 30.1 g/dl (32.0-37.0); MEAN CORPUSCULAR VOLUME 108.3 fl (82.0-101.0); MEAN PLATELET VOLUME 10.7 fl (7.4-10.4); MONOCYTE # 0.7 10^3/ul (0.3-0.9); MONOCYTES % 15.4 % (0.0-11.0); NEUTROPHIL # 3.3 10^3/ul (1.6-7.5); NEUTROPHILS % 68.3 % (39.0-77.0); PLATELET COUNT 244 10^3/UL (140-415); RED BLOOD COUNT 1.93 10^6/ul (4.20-5.40); RED CELL DISTRIBUTION WIDTH 15.2 % (11.5-14.5)
[2019-01-06 07:01] LABS: POSITIVE DIFF @See below
[2019-01-06 07:03] LABS: HEMOGLOBIN 6.3 g/dl (12.0-16.0)
[2019-01-06 07:16] LABS: ANION GAP 9 (5-13); BLOOD UREA NITROGEN 29 mg/dl (7-20); CALCIUM 9.1 mg/dl (8.4-10.2); CARBON DIOXIDE 30 mmol/L (21-31); CHLORIDE 96 mmol/L (97-110); CREATININE 3.08 mg/dl (0.44-1.00); Estimated GFR 17 mL/min (>60); GLUCOSE 53 mg/dl (70-220); POTASSIUM 4.8 mmol/L (3.5-5.1); SODIUM 135 mmol/L (135-144)
[2019-01-06] MEDS: [UNRECOGNIZED DRUG - REMARK] XX ×2 (07:52→15:03)
[2019-01-06] MEDS: SEVELAMER CARBONATE 0.8 GM PKT GTB ×3 (07:53→17:49)
[2019-01-06] MEDS: SEVELAMER CARBONATE 2.4 GM PKT GTB ×3 (07:53→17:49)
[2019-01-06] MEDS: LANTHANUM 500 MG CHEW PEG ×3 (07:54→17:48)
[2019-01-06] MEDS: CALCIUM ACETATE 667 MG CAP PEG ×3 (07:54→17:48)
[2019-01-06] MEDS: MIDODRINE 5 MG TAB PEG ×3 (08:10→20:22)
[2019-01-06] MEDS: HEPARIN 1000 UNITS/ML 10 ML INJ CATHETER (11:23)
[2019-01-06] MEDS: morphine 2 MG INJ IV ×3 (12:04→22:30)
[2019-01-06] MEDS: CIPROFLOXACIN HCL OTIC DROP 0.25 ML RIGHT EAR ×2 (12:06→21:44)
[2019-01-06] MEDS: COLLAGENASE 5 GM (UD JAR) TOP (12:06)
[2019-01-06] MEDS: FAMOTIDINE 20 MG TAB PEG (12:07)
[2019-01-06] MEDS: SERTRALINE 100 MG TAB PEG (12:08)
[2019-01-06] MEDS: BUSPIRONE 5 MG TAB PEG ×3 (12:08→21:44)
[2019-01-06] MEDS: HYDROCORTISONE 5 MG TAB NGT ×3 (12:09→21:44)
[2019-01-06 12:41] LABS: IRON 29 ug/dl (35-150)
[2019-01-06 12:51] LABS: % IRON SATURATION 21 % SAT (22-52); TOTAL IRON BINDING CAPACITY 137 ug/dl (241-421)
[2019-01-07] MEDS: INSULIN ASPART [NOVOLOG] 3 ML PEN SC ×6 (00:59→21:00)
[2019-01-07] MEDS: ACETAMINOPHEN 650MG/20.3ML CUP PEG ×5 (01:00→23:31)
[2019-01-07] MEDS: ACCU-CHEK XX ×6 (01:01→21:00)
[2019-01-07] MEDS: LORAZEPAM 0.5 MG TAB NGT (01:13)
[2019-01-07] MEDS: morphine 2 MG INJ IV ×5 (02:13→22:24)
[2019-01-07] MEDS: NPH, HUMAN INSULIN ISOPHANE 3ML VIAL SC ×3 (05:17→22:38)
[2019-01-07] MEDS: GABAPENTIN (50 MG/ML PO SYG) PEG ×3 (05:19→22:24)
[2019-01-07] MEDS: DIAZEPAM 5 MG TAB PEG ×3 (05:19→23:31)
[2019-01-07] MEDS: LEVOTHYROXINE 100 MCG VIAL IV (05:19)
[2019-01-07] MEDS: COLLAGENASE 5 GM (UD JAR) TOP (08:55)
[2019-01-07] MEDS: SEVELAMER CARBONATE 2.4 GM PKT GTB ×3 (08:56→17:19)
[2019-01-07] MEDS: SEVELAMER CARBONATE 0.8 GM PKT GTB ×3 (08:56→17:19)
[2019-01-07] MEDS: CALCIUM ACETATE 667 MG CAP PEG ×3 (08:56→17:20)
[2019-01-07] MEDS: HYDROCORTISONE 5 MG TAB NGT ×3 (08:57→20:38)
[2019-01-07] MEDS: MIDODRINE 5 MG TAB PEG ×3 (08:57→20:39)
[2019-01-07] MEDS: LANTHANUM 500 MG CHEW PEG ×3 (08:57→17:19)
[2019-01-07] MEDS: CIPROFLOXACIN HCL OTIC DROP 0.25 ML RIGHT EAR ×2 (08:57→20:38)
[2019-01-07] MEDS: BUSPIRONE 5 MG TAB PEG ×3 (08:57→20:37)
[2019-01-07] MEDS: FAMOTIDINE 20 MG TAB PEG (08:57)
[2019-01-07] MEDS: SERTRALINE 100 MG TAB PEG (08:58)
[2019-01-07 09:00] LABS: ADD MAN DIFF? NO
[2019-01-07 09:03] LABS: WHITE BLOOD COUNT 5.3 10^3/ul (4.8-10.8)
[2019-01-07 09:03] LABS: ABNORMAL IP MESSAGE 1; BASOPHILS % 0.8 % (0.0-2.0); EOSINOPHILS # 0.2 10^3/ul (0.0-0.5); EOSINOPHILS % 3.2 % (0.0-7.0); HEMATOCRIT 20.2 % (37.0-47.0); LYMPHOCYTES # 0.6 10^3/ul (0.8-2.9); LYMPHOCYTES % 11.8 % (15.0-51.0); MEAN CORPUSCULAR HEMOGLOBIN 31.6 pg (29.0-33.0); MEAN CORPUSCULAR HGB CONC 29.7 g/dl (32.0-37.0); MEAN CORPUSCULAR VOLUME 106.3 fl (82.0-101.0); MEAN PLATELET VOLUME 10.7 fl (7.4-10.4); MONOCYTE # 0.9 10^3/ul (0.3-0.9); MONOCYTES % 17.1 % (0.0-11.0); NEUTROPHIL # 3.5 10^3/ul (1.6-7.5); NEUTROPHILS % 66.7 % (39.0-77.0); PLATELET COUNT 235 10^3/UL (140-415); RED CELL DISTRIBUTION WIDTH 15.1 % (11.5-14.5)
[2019-01-07 09:12] LABS: POSITIVE DIFF @See below
[2019-01-07 09:20] LABS: ANION GAP 10 (5-13); BLOOD UREA NITROGEN 27 mg/dl (7-20); CALCIUM 9.2 mg/dl (8.4-10.2); CARBON DIOXIDE 31 mmol/L (21-31); CHLORIDE 96 mmol/L (97-110); CREATININE 2.85 mg/dl (0.44-1.00); Estimated GFR 18 mL/min (>60); GLUCOSE 85 mg/dl (70-220); POTASSIUM 4.8 mmol/L (3.5-5.1); SODIUM 137 mmol/L (135-144)
[2019-01-07] MEDS: GUAIFENESIN 20 MG/ML 5ML CUP GTB (10:15)
[2019-01-07] MEDS: SOD FERRIC GLUC COMPLX 125 MG in SOD CHLORIDE 0.9% 100 ML IVPB (13:25)
[2019-01-07] MEDS: EPOETIN ALFA-EPBX (ESRD) 3,000 UNIT/ML VIAL SC (18:28)
[2019-01-07] MEDS: DIPHENHYDRAMINE 50 MG CAP PEG (20:38)
[2019-01-08] MEDS: morphine 2 MG INJ IV ×5 (00:14→15:49)
[2019-01-08] MEDS: ONDANSETRON 4 MG INJ IV (00:22)
[2019-01-08] MEDS: ACCU-CHEK XX ×4 (01:36→21:55)
[2019-01-08] MEDS: INSULIN ASPART [NOVOLOG] 3 ML PEN SC ×5 (01:43→21:00)
[2019-01-08] MEDS: DIPHENHYDRAMINE 50 MG CAP PEG ×2 (04:26→09:54)
[2019-01-08] MEDS: NPH, HUMAN INSULIN ISOPHANE 3ML VIAL SC ×3 (05:45→21:55)
[2019-01-08] MEDS: GABAPENTIN (50 MG/ML PO SYG) PEG ×3 (05:46→21:39)
[2019-01-08] MEDS: ACETAMINOPHEN 650MG/20.3ML CUP PEG ×3 (05:46→17:31)
[2019-01-08] MEDS: DIAZEPAM 5 MG TAB PEG ×3 (05:46→21:38)
[2019-01-08] MEDS: LEVOTHYROXINE 100 MCG VIAL IV (05:46)
[2019-01-08] MEDS: MIDODRINE 5 MG TAB PEG ×3 (09:00→21:38)
[2019-01-08] MEDS: SEVELAMER CARBONATE 0.8 GM PKT GTB ×3 (09:33→17:33)
[2019-01-08] MEDS: SEVELAMER CARBONATE 2.4 GM PKT GTB ×3 (09:34→17:33)
[2019-01-08] MEDS: LANTHANUM 500 MG CHEW PEG ×3 (09:35→17:33)
[2019-01-08] MEDS: CALCIUM ACETATE 667 MG CAP PEG ×3 (09:36→17:33)
[2019-01-08] MEDS: FAMOTIDINE 20 MG TAB PEG (09:38)
[2019-01-08] MEDS: BUSPIRONE 5 MG TAB PEG ×3 (09:38→21:38)
[2019-01-08] MEDS: SERTRALINE 100 MG TAB PEG (09:39)
[2019-01-08] MEDS: HYDROCORTISONE 5 MG TAB NGT ×3 (09:40→21:38)
[2019-01-08] MEDS: CIPROFLOXACIN HCL OTIC DROP 0.25 ML RIGHT EAR ×2 (09:40→21:38)
[2019-01-08] MEDS: GUAIFENESIN 20 MG/ML 5ML CUP GTB (09:54)
[2019-01-08] MEDS: COLLAGENASE 5 GM (UD JAR) TOP (14:37)
[2019-01-08] MEDS: SOD FERRIC GLUC COMPLX 125 MG in SOD CHLORIDE 0.9% 100 ML IVPB (14:37)
[2019-01-08] MEDS ORDERED: PROPOFOL 100 ML (17:11)
[2019-01-08] MEDS: PROPOFOL 100 ML IV ×2 (17:32→21:37)
[2019-01-08 18:30] LABS: AADO2 Arterial 370.3 mmHg (7.0-24.0); Allen Test ACCEPTAB; Arterial Blood Gas Oxygen Sat 99.7 mmHG (95.0-98.0); Arterial COHb 0.6 % (0.0-3.0); Arterial Fraction of Oxyhgb 98.8 % (93.0-99.0); Arterial HCO3 28.8 mmol/L (22.0-26.0); Arterial MetHb 0.3 % (0.0-1.5); Arterial pCO2 44.8 mmhg (35-45); MODE VENT - AC; Site LB
[2019-01-08] MEDS ORDERED: ALBUTEROL/IPRATROPIUM (NEB) 3 ML AMP HHN (20:00)
[2019-01-08] MEDS: IPRATROPIUM (HFA) 12.9 GM INHALER INH (20:39)
[2019-01-08] MEDS: ALBUTEROL HFA 8 GM INHALER INH (20:39)
[2019-01-09] MEDS: ACETAMINOPHEN 650MG/20.3ML CUP PEG ×5 (00:16→23:21)
[2019-01-09] MEDS: ACCU-CHEK XX ×6 (00:17→21:42)
[2019-01-09] MEDS: INSULIN ASPART [NOVOLOG] 3 ML PEN SC ×6 (00:17→21:50)
[2019-01-09] MEDS: IPRATROPIUM (HFA) 12.9 GM INHALER INH ×4 (01:14→19:39)
[2019-01-09] MEDS: ALBUTEROL HFA 8 GM INHALER INH ×4 (01:15→19:38)
[2019-01-09] MEDS: GABAPENTIN (50 MG/ML PO SYG) PEG ×3 (05:32→21:42)
[2019-01-09] MEDS: NPH, HUMAN INSULIN ISOPHANE 3ML VIAL SC ×3 (05:32→21:48)
[2019-01-09] MEDS: LEVOTHYROXINE 100 MCG VIAL IV (05:32)
[2019-01-09] MEDS: DIAZEPAM 5 MG TAB PEG ×3 (05:36→21:42)
[2019-01-09] MEDS: PROPOFOL 100 ML IV ×3 (05:48→23:20)
[2019-01-09 05:59] LABS: ADD MAN DIFF? NO
[2019-01-09 06:05] LABS: ABNORMAL IP MESSAGE 1; BASOPHIL # 0.1 10^3/ul (0.0-0.1); BASOPHILS % 0.7 % (0.0-2.0); EOSINOPHILS # 0.2 10^3/ul (0.0-0.5); EOSINOPHILS % 2.4 % (0.0-7.0); HEMATOCRIT 21.2 % (37.0-47.0); LYMPHOCYTES # 0.7 10^3/ul (0.8-2.9); LYMPHOCYTES % 7.9 % (15.0-51.0); MEAN CORPUSCULAR HEMOGLOBIN 32.5 pg (29.0-33.0); MEAN CORPUSCULAR HGB CONC 31.1 g/dl (32.0-37.0); MEAN CORPUSCULAR VOLUME 104.4 fl (82.0-101.0); MEAN PLATELET VOLUME 10.3 fl (7.4-10.4); MONOCYTES % 11.4 % (0.0-11.0); NEUTROPHIL # 6.5 10^3/ul (1.6-7.5); NEUTROPHILS % 76.9 % (39.0-77.0); PLATELET COUNT 238 10^3/UL (140-415); RED BLOOD COUNT 2.03 10^6/ul (4.20-5.40); RED CELL DISTRIBUTION WIDTH 14.8 % (11.5-14.5)
[2019-01-09 06:05] LABS: WHITE BLOOD COUNT 8.5 10^3/ul (4.8-10.8)
[2019-01-09 06:17] LABS: POSITIVE DIFF @See below
[2019-01-09 06:19] LABS: HEMOGLOBIN 6.6 g/dl (12.0-16.0)
[2019-01-09] MEDS: HYDROCODONE/APAP (5/325) TAB PO ×2 (06:31→20:02)
[2019-01-09 06:32] LABS: ANION GAP 7 (5-13); BLOOD UREA NITROGEN 28 mg/dl (7-20); CALCIUM 9.6 mg/dl (8.4-10.2); CARBON DIOXIDE 28 mmol/L (21-31); CHLORIDE 97 mmol/L (97-110); CREATININE 2.97 mg/dl (0.44-1.00); Estimated GFR 17 mL/min (>60); GLUCOSE 71 mg/dl (70-220); POTASSIUM 4.8 mmol/L (3.5-5.1); SODIUM 132 mmol/L (135-144)
[2019-01-09] MEDS: LANTHANUM 500 MG CHEW PEG ×3 (06:35→18:09)
[2019-01-09] MEDS: SEVELAMER CARBONATE 2.4 GM PKT GTB ×3 (06:35→18:10)
[2019-01-09] MEDS: CALCIUM ACETATE 667 MG CAP PEG ×3 (06:36→18:09)
[2019-01-09] MEDS: SEVELAMER CARBONATE 0.8 GM PKT GTB ×3 (06:36→18:09)
[2019-01-09] MEDS: BUSPIRONE 5 MG TAB PEG ×3 (08:16→20:02)
[2019-01-09] MEDS: COLLAGENASE 5 GM (UD JAR) TOP (08:16)
[2019-01-09] MEDS: FAMOTIDINE 20 MG TAB PEG (08:16)
[2019-01-09] MEDS: SERTRALINE 100 MG TAB PEG (08:16)
[2019-01-09] MEDS: CIPROFLOXACIN HCL OTIC DROP 0.25 ML RIGHT EAR (08:16)
[2019-01-09] MEDS: HYDROCORTISONE 5 MG TAB NGT ×3 (08:16→20:06)
[2019-01-09] MEDS: MIDODRINE 5 MG TAB PEG ×3 (08:16→20:02)
[2019-01-09] MEDS: [UNRECOGNIZED DRUG - OTHER] XX ×2 (09:13→17:30)
[2019-01-09] MEDS: HEPARIN 1000 UNITS/ML 10 ML INJ CATHETER (11:11)
[2019-01-09] MEDS: DIPHENHYDRAMINE 50 MG CAP PEG (12:34)
[2019-01-09] MEDS: SOD FERRIC GLUC COMPLX 125 MG in SOD CHLORIDE 0.9% 100 ML IVPB (12:42)
[2019-01-09] MEDS: LORAZEPAM 2 MG INJ IV ×3 (12:45→23:21)
[2019-01-09] MEDS: EPOETIN ALFA-EPBX (ESRD) 3,000 UNIT/ML VIAL SC (15:43)
[2019-01-10] MEDS: INSULIN ASPART [NOVOLOG] 3 ML PEN SC ×6 (00:36→22:05)
[2019-01-10] MEDS: ACCU-CHEK XX ×6 (00:36→21:00)
[2019-01-10] MEDS: [UNRECOGNIZED DRUG - OTHER] XX ×3 (01:20→17:30)
[2019-01-10] MEDS: ALBUTEROL HFA 8 GM INHALER INH ×4 (02:00→20:02)
[2019-01-10] MEDS: IPRATROPIUM (HFA) 12.9 GM INHALER INH ×4 (02:00→20:02)
[2019-01-10] MEDS: NPH, HUMAN INSULIN ISOPHANE 3ML VIAL SC ×3 (06:00→22:03)
[2019-01-10] MEDS: LORAZEPAM 2 MG INJ IV ×4 (06:00→23:26)
[2019-01-10] MEDS: DIAZEPAM 5 MG TAB PEG ×3 (06:02→20:20)
[2019-01-10] MEDS: GABAPENTIN (50 MG/ML PO SYG) PEG ×3 (06:03→20:20)
[2019-01-10] MEDS: ACETAMINOPHEN 650MG/20.3ML CUP PEG ×4 (06:03→23:26)
[2019-01-10] MEDS: LEVOTHYROXINE 100 MCG VIAL IV (06:03)
[2019-01-10] MEDS: PROPOFOL 100 ML IV (06:15)
[2019-01-10] MEDS: CALCIUM ACETATE 667 MG CAP PEG ×3 (07:13→17:25)
[2019-01-10] MEDS: SEVELAMER CARBONATE 0.8 GM PKT GTB ×3 (07:13→17:25)
[2019-01-10] MEDS: SEVELAMER CARBONATE 2.4 GM PKT GTB ×3 (07:14→17:25)
[2019-01-10] MEDS: LANTHANUM 500 MG CHEW PEG ×3 (07:14→17:25)
[2019-01-10] MEDS: HYDROCORTISONE 5 MG TAB NGT ×3 (08:21→20:20)
[2019-01-10] MEDS: COLLAGENASE 5 GM (UD JAR) TOP (08:22)
[2019-01-10] MEDS: SERTRALINE 100 MG TAB PEG (08:22)
[2019-01-10] MEDS: MIDODRINE 5 MG TAB PEG ×3 (08:22→20:20)
[2019-01-10] MEDS: BUSPIRONE 5 MG TAB PEG ×3 (08:22→20:20)
[2019-01-10] MEDS: FAMOTIDINE 20 MG TAB PEG (08:22)
[2019-01-10 10:14] LABS: ADD MAN DIFF? NO
[2019-01-10 10:15] LABS: BASOPHIL # 0.1 10^3/ul (0.0-0.1); BASOPHILS % 0.9 % (0.0-2.0); EOSINOPHILS # 0.3 10^3/ul (0.0-0.5); EOSINOPHILS % 2.4 % (0.0-7.0); HEMATOCRIT 23.8 % (37.0-47.0); HEMOGLOBIN 7.1 g/dl (12.0-16.0); LYMPHOCYTES # 0.7 10^3/ul (0.8-2.9); LYMPHOCYTES % 6.5 % (15.0-51.0); MEAN CORPUSCULAR HEMOGLOBIN 32.3 pg (29.0-33.0); MEAN CORPUSCULAR HGB CONC 29.8 g/dl (32.0-37.0); MEAN CORPUSCULAR VOLUME 108.2 fl (82.0-101.0); MEAN PLATELET VOLUME 10.3 fl (7.4-10.4); MONOCYTES % 9.8 % (0.0-11.0); NEUTROPHIL # 8.2 10^3/ul (1.6-7.5); NEUTROPHILS % 79.3 % (39.0-77.0); PLATELET COUNT 293 10^3/UL (140-415); RED CELL DISTRIBUTION WIDTH 15.4 % (11.5-14.5)
[2019-01-10 10:15] LABS: WHITE BLOOD COUNT 10.3 10^3/ul (4.8-10.8)
[2019-01-10] MEDS: HEPARIN 1000 UNITS/ML 10 ML INJ CATHETER (12:52)
[2019-01-10] MEDS: HYDROCODONE/APAP (5/325) TAB PO ×2 (12:53→17:25)
[2019-01-10] MEDS: SOD FERRIC GLUC COMPLX 125 MG in SOD CHLORIDE 0.9% 100 ML IVPB (13:27)
[2019-01-10] MEDS: EPOETIN ALFA-EPBX (ESRD) 3,000 UNIT/ML VIAL SC (16:24)
[2019-01-11] MEDS: INSULIN ASPART [NOVOLOG] 3 ML PEN SC ×6 (01:00→21:00)
[2019-01-11] MEDS: ACCU-CHEK XX ×6 (01:00→22:39)
[2019-01-11] MEDS: ALBUTEROL HFA 8 GM INHALER INH ×4 (01:04→19:46)
[2019-01-11] MEDS: IPRATROPIUM (HFA) 12.9 GM INHALER INH ×4 (01:04→19:46)
[2019-01-11] MEDS: PROPOFOL 100 ML IV ×2 (01:10→16:12)
[2019-01-11] MEDS: [UNRECOGNIZED DRUG - OTHER] XX ×3 (01:59→17:30)
[2019-01-11] MEDS: LEVOTHYROXINE 100 MCG VIAL IV (06:19)
[2019-01-11] MEDS: ACETAMINOPHEN 650MG/20.3ML CUP PEG ×3 (06:19→18:03)
[2019-01-11] MEDS: DIAZEPAM 5 MG TAB PEG ×3 (06:20→20:13)
[2019-01-11] MEDS: LORAZEPAM 2 MG INJ IV ×3 (06:20→18:03)
[2019-01-11] MEDS: GABAPENTIN (50 MG/ML PO SYG) PEG ×3 (06:20→20:13)
[2019-01-11] MEDS: NPH, HUMAN INSULIN ISOPHANE 3ML VIAL SC ×3 (06:22→22:00)
[2019-01-11] MEDS: SEVELAMER CARBONATE 0.8 GM PKT GTB ×3 (08:57→18:02)
[2019-01-11] MEDS: LANTHANUM 500 MG CHEW PEG ×3 (08:57→18:02)
[2019-01-11] MEDS: SEVELAMER CARBONATE 2.4 GM PKT GTB ×3 (08:57→18:02)
[2019-01-11] MEDS: CALCIUM ACETATE 667 MG CAP PEG ×3 (08:58→18:02)
[2019-01-11] MEDS: HYDROCORTISONE 5 MG TAB NGT ×3 (08:58→20:13)
[2019-01-11] MEDS: FAMOTIDINE 20 MG TAB PEG (08:58)
[2019-01-11] MEDS: BUSPIRONE 5 MG TAB PEG ×3 (08:58→20:12)
[2019-01-11] MEDS: SERTRALINE 100 MG TAB PEG (08:58)
[2019-01-11] MEDS: COLLAGENASE 5 GM (UD JAR) TOP (08:59)
[2019-01-11] MEDS: MIDODRINE 5 MG TAB PEG ×3 (08:59→20:12)
[2019-01-11 09:36] LABS: ADD MAN DIFF? NO
[2019-01-11 09:44] LABS: BASOPHIL # 0.1 10^3/ul (0.0-0.1); BASOPHILS % 0.7 % (0.0-2.0); EOSINOPHILS # 0.2 10^3/ul (0.0-0.5); EOSINOPHILS % 2.1 % (0.0-7.0); HEMATOCRIT 24.7 % (37.0-47.0); HEMOGLOBIN 7.3 g/dl (12.0-16.0); LYMPHOCYTES # 0.6 10^3/ul (0.8-2.9); LYMPHOCYTES % 5.5 % (15.0-51.0); MEAN CORPUSCULAR HGB CONC 29.6 g/dl (32.0-37.0); MEAN CORPUSCULAR VOLUME 108.3 fl (82.0-101.0); MEAN PLATELET VOLUME 9.8 fl (7.4-10.4); MONOCYTE # 0.6 10^3/ul (0.3-0.9); MONOCYTES % 5.2 % (0.0-11.0); NEUTROPHIL # 9.4 10^3/ul (1.6-7.5); NEUTROPHILS % 85.7 % (39.0-77.0); PLATELET COUNT 328 10^3/UL (140-415); RED BLOOD COUNT 2.28 10^6/ul (4.20-5.40); RED CELL DISTRIBUTION WIDTH 15.4 % (11.5-14.5)
[2019-01-11 09:59] LABS: ALANINE AMINOTRANSFERASE 18 IU/L (13-69); ALBUMIN 2.9 g/dl (3.3-4.9); ALBUMIN/GLOBULIN RATIO 0.87; ALKALINE PHOSPHATASE 258 IU/L (42-121); ANION GAP 11 (5-13); ASPARTATE AMINO TRANSFERASE 17 IU/L (15-46); BILIRUBIN,INDIRECT 0.2 mg/dl (0-1.1); BILIRUBIN,TOTAL 0.2 mg/dl (0.2-1.3); BLOOD UREA NITROGEN 21 mg/dl (7-20); CALCIUM 9.7 mg/dl (8.4-10.2); CARBON DIOXIDE 25 mmol/L (21-31); CHLORIDE 98 mmol/L (97-110); Estimated GFR 21 mL/min (>60); GLUCOSE 109 mg/dl (70-220); POTASSIUM 4.5 mmol/L (3.5-5.1); SODIUM 134 mmol/L (135-144); TOTAL PROTEIN 6.2 g/dl (6.1-8.1)
[2019-01-11] MEDS: HYDROCODONE/APAP (5/325) TAB PO (12:41)
[2019-01-11] MEDS: SOD FERRIC GLUC COMPLX 125 MG in SOD CHLORIDE 0.9% 100 ML IVPB (14:16)
[2019-01-11] MEDS: HEPARIN 1000 UNITS/ML 10 ML INJ CATHETER (17:42)
[2019-01-12] MEDS: INSULIN ASPART [NOVOLOG] 3 ML PEN SC ×6 (01:00→22:00)
[2019-01-12] MEDS: ACETAMINOPHEN 650MG/20.3ML CUP PEG ×5 (01:12→22:20)
[2019-01-12] MEDS: ACCU-CHEK XX ×6 (01:12→21:00)
[2019-01-12] MEDS: [UNRECOGNIZED DRUG - OTHER] XX ×3 (01:24→17:02)
[2019-01-12] MEDS: PROPOFOL 100 ML IV ×4 (01:24→12:12)
[2019-01-12] MEDS: IPRATROPIUM (HFA) 12.9 GM INHALER INH ×4 (01:41→19:18)
[2019-01-12] MEDS: ALBUTEROL HFA 8 GM INHALER INH ×4 (01:41→19:18)
[2019-01-12] MEDS: NPH, HUMAN INSULIN ISOPHANE 3ML VIAL SC ×3 (05:36→22:00)
[2019-01-12] MEDS: LEVOTHYROXINE 100 MCG VIAL IV (05:37)
[2019-01-12] MEDS: LORAZEPAM 2 MG INJ IV ×5 (05:37→23:28)
[2019-01-12] MEDS: GABAPENTIN (50 MG/ML PO SYG) PEG ×3 (05:37→21:50)
[2019-01-12 05:41] LABS: ADD MAN DIFF? NO
[2019-01-12] MEDS: DIAZEPAM 5 MG TAB PEG ×3 (05:43→21:50)
[2019-01-12 05:49] LABS: WHITE BLOOD COUNT 10.3 10^3/ul (4.8-10.8)
[2019-01-12 05:49] LABS: ABNORMAL IP MESSAGE 1; BASOPHIL # 0.1 10^3/ul (0.0-0.1); BASOPHILS % 0.7 % (0.0-2.0); EOSINOPHILS # 0.2 10^3/ul (0.0-0.5); HEMATOCRIT 25.9 % (37.0-47.0); LYMPHOCYTES # 0.5 10^3/ul (0.8-2.9); LYMPHOCYTES % 5.1 % (15.0-51.0); MEAN CORPUSCULAR HEMOGLOBIN 32.8 pg (29.0-33.0); MEAN CORPUSCULAR HGB CONC 30.9 g/dl (32.0-37.0); MEAN CORPUSCULAR VOLUME 106.1 fl (82.0-101.0); MEAN PLATELET VOLUME 9.8 fl (7.4-10.4); MONOCYTE # 0.6 10^3/ul (0.3-0.9); NEUTROPHIL # 8.7 10^3/ul (1.6-7.5); NEUTROPHILS % 84.6 % (39.0-77.0); PLATELET COUNT 268 10^3/UL (140-415); RED BLOOD COUNT 2.44 10^6/ul (4.20-5.40); RED CELL DISTRIBUTION WIDTH 15.7 % (11.5-14.5)
[2019-01-12 05:55] LABS: POSITIVE DIFF @See below
[2019-01-12 06:29] LABS: ALANINE AMINOTRANSFERASE 9 IU/L (13-69); ALBUMIN 3.1 g/dl (3.3-4.9); ALBUMIN/GLOBULIN RATIO 0.88; ALKALINE PHOSPHATASE 276 IU/L (42-121); ANION GAP 10 (5-13); ASPARTATE AMINO TRANSFERASE 47 IU/L (15-46); BILIRUBIN,TOTAL 0.3 mg/dl (0.2-1.3); BLOOD UREA NITROGEN 16 mg/dl (7-20); CALCIUM 9.6 mg/dl (8.4-10.2); CARBON DIOXIDE 28 mmol/L (21-31); CHLORIDE 99 mmol/L (97-110); Estimated GFR 23 mL/min (>60); GLUCOSE 89 mg/dl (70-220); POTASSIUM 4.6 mmol/L (3.5-5.1); SODIUM 137 mmol/L (135-144); TOTAL PROTEIN 6.6 g/dl (6.1-8.1)
[2019-01-12 06:30] LABS: BILIRUBIN,INDIRECT 0.3 mg/dl (0-1.1)
[2019-01-12 08:41] LABS: ANISOCYTOSIS 1+ (0-0); BAND NEUTROPHILS #M 0.4 10^3/ul (0.0-0.6); BAND NEUTROPHILS % (M) 4 % (0-4); BASOPHIL #M 0.1 10^3/ul (0.0-0.0); BASOPHILS % (M) 1 % (0-2); EOSINOPHILS % (M) 1 % (0-7); GIANT THROMBO% (M) 1 % (0-0); HYPOCHROMASIA 1+ (0-0); METAMYELOCYTES #M 0.1 10^3/ul (0.0-0.0); METAMYELOCYTES %M 1 % (0-0); MONOCYTE #M 0.6 10^3/ul (0.3-0.9); MONOCYTES % (M) 6 % (0-11); PLATELET ESTIMATE NORMAL; POLYCHROMASIA 1+ (0-0); PROMYELOCYTES #M 0.1 10^3/ul (0-0); PROMYELOCYTES % (M) 1 % (0-0); SEG NEUT #M 8.9 10^3/ul (1.6-7.5); SEGMENTED NEUTROPHILS (M) % 86 % (39-77); SMUDGE%M 1 % (0-0); TARGET CELLS 1+ (0-0)
[2019-01-12] MEDS: SEVELAMER CARBONATE 2.4 GM PKT GTB ×3 (08:45→18:39)
[2019-01-12] MEDS: CALCIUM ACETATE 667 MG CAP PEG ×3 (08:45→18:39)
[2019-01-12] MEDS: SEVELAMER CARBONATE 0.8 GM PKT GTB ×3 (08:45→18:39)
[2019-01-12] MEDS: MIDODRINE 5 MG TAB PEG ×2 (08:46→12:33)
[2019-01-12] MEDS: FAMOTIDINE 20 MG TAB PEG (08:46)
[2019-01-12] MEDS: SERTRALINE 100 MG TAB PEG (08:46)
[2019-01-12] MEDS: BUSPIRONE 5 MG TAB PEG (08:46)
[2019-01-12] MEDS: LANTHANUM 500 MG CHEW PEG ×3 (08:46→18:40)
[2019-01-12] MEDS: HYDROCORTISONE 5 MG TAB NGT ×3 (08:46→21:50)
[2019-01-12] MEDS: COLLAGENASE 5 GM (UD JAR) TOP (08:47)
[2019-01-12] MEDS: BUSPIRONE 10 MG TAB PEG ×2 (12:33→21:50)
[2019-01-12] MEDS: HEPARIN 1000 UNITS/ML 10 ML INJ CATHETER (13:40)
[2019-01-12] MEDS: EPOETIN ALFA-EPBX (ESRD) 3,000 UNIT/ML VIAL SC (19:43)
[2019-01-12] MEDS: MIDODRINE 2.5 MG TAB PEG (22:51)
[2019-01-12] MEDS: DIPHENHYDRAMINE 50 MG CAP PEG (22:51)
[2019-01-13] MEDS: ACCU-CHEK XX ×6 (00:24→21:20)
[2019-01-13] MEDS: INSULIN ASPART [NOVOLOG] 3 ML PEN SC ×6 (00:24→21:26)
[2019-01-13] MEDS: HYDROCODONE/APAP (5/325) TAB PO ×4 (00:48→21:45)
[2019-01-13] MEDS: IPRATROPIUM (HFA) 12.9 GM INHALER INH ×4 (01:15→20:00)
[2019-01-13] MEDS: ALBUTEROL HFA 8 GM INHALER INH ×4 (01:15→20:00)
[2019-01-13] MEDS: [UNRECOGNIZED DRUG - OTHER] XX (01:30)
[2019-01-13] MEDS: DIAZEPAM 5 MG TAB PEG ×3 (05:10→21:22)
[2019-01-13] MEDS: GABAPENTIN (50 MG/ML PO SYG) PEG ×3 (05:12→21:20)
[2019-01-13] MEDS: LEVOTHYROXINE 100 MCG VIAL IV (05:13)
[2019-01-13] MEDS: ACETAMINOPHEN 650MG/20.3ML CUP PEG ×3 (05:14→17:08)
[2019-01-13] MEDS: NPH, HUMAN INSULIN ISOPHANE 3ML VIAL SC ×3 (05:31→21:26)
[2019-01-13 05:41] LABS: ADD MAN DIFF? NO
[2019-01-13 05:45] LABS: BASOPHIL # 0.1 10^3/ul (0.0-0.1); BASOPHILS % 0.6 % (0.0-2.0); EOSINOPHILS # 0.2 10^3/ul (0.0-0.5); EOSINOPHILS % 1.4 % (0.0-7.0); HEMATOCRIT 24.3 % (37.0-47.0); HEMOGLOBIN 7.2 g/dl (12.0-16.0); LYMPHOCYTES # 0.8 10^3/ul (0.8-2.9); LYMPHOCYTES % 5.5 % (15.0-51.0); MEAN CORPUSCULAR HEMOGLOBIN 32.4 pg (29.0-33.0); MEAN CORPUSCULAR HGB CONC 29.6 g/dl (32.0-37.0); MEAN CORPUSCULAR VOLUME 109.5 fl (82.0-101.0); MONOCYTE # 1.5 10^3/ul (0.3-0.9); MONOCYTES % 10.3 % (0.0-11.0); NEUTROPHIL # 11.4 10^3/ul (1.6-7.5); NEUTROPHILS % 81.3 % (39.0-77.0); PLATELET COUNT 254 10^3/UL (140-415); RED BLOOD COUNT 2.22 10^6/ul (4.20-5.40)
[2019-01-13 05:45] LABS: WHITE BLOOD COUNT 14.1 10^3/ul (4.8-10.8)
[2019-01-13] MEDS: LORAZEPAM 2 MG INJ IV ×3 (05:58→16:53)
[2019-01-13 06:09] LABS: ANION GAP 12 (5-13); BLOOD UREA NITROGEN 21 mg/dl (7-20); CALCIUM 9.6 mg/dl (8.4-10.2); CARBON DIOXIDE 27 mmol/L (21-31); CHLORIDE 97 mmol/L (97-110); CREATININE 3.03 mg/dl (0.44-1.00); Estimated GFR 17 mL/min (>60); GLUCOSE 129 mg/dl (70-220); MAGNESIUM 2.4 mg/dl (1.7-2.5); PHOSPHORUS 1.9 mg/dl (2.5-4.9); POTASSIUM 4.5 mmol/L (3.5-5.1); SODIUM 136 mmol/L (135-144)
[2019-01-13] MEDS: CALCIUM ACETATE 667 MG CAP PEG (07:35)
[2019-01-13] MEDS: SEVELAMER CARBONATE 0.8 GM PKT GTB ×3 (08:34→17:11)
[2019-01-13] MEDS: COLLAGENASE 5 GM (UD JAR) TOP (08:34)
[2019-01-13] MEDS: MIDODRINE 2.5 MG TAB PEG ×3 (08:35→21:00)
[2019-01-13] MEDS: HYDROCORTISONE 5 MG TAB NGT ×3 (08:35→21:00)
[2019-01-13] MEDS: LANTHANUM 500 MG CHEW PEG ×3 (08:35→16:53)
[2019-01-13] MEDS: NEUTRA-PHOS 250 MG PACKET PO (08:36)
[2019-01-13] MEDS: SERTRALINE 100 MG TAB PEG (08:36)
[2019-01-13] MEDS: FAMOTIDINE 20 MG TAB PEG (08:36)
[2019-01-13] MEDS: BUSPIRONE 10 MG TAB PEG ×3 (08:36→21:00)
[2019-01-13] MEDS ORDERED: VANCOMYCIN IV PER PHARMACY XX (15:00)
[2019-01-13] MEDS: HEPARIN 1000 UNITS/ML 10 ML INJ CATHETER (15:18)
[2019-01-13] MEDS: MEROPENEM 500MG/50 ML (PMX) 50 ML IVPB ×2 (16:23→21:16)
[2019-01-13] MEDS: PROPOFOL 100 ML IV (16:40)
[2019-01-13] MEDS: VANCOMYCIN HCL 2 GM in SOD CHLORIDE 0.9% 500 ML IVPB (16:58)
[2019-01-13] MEDS: EPOETIN ALFA-EPBX (ESRD) 10,000 UNIT/ML VIAL SC (21:23)
[2019-01-14] MEDS: HYDROCORTISONE 5 MG TAB NGT ×4 (00:42→20:52)
[2019-01-14] MEDS: BUSPIRONE 10 MG TAB PEG ×4 (00:42→20:52)
[2019-01-14] MEDS: ACETAMINOPHEN 650MG/20.3ML CUP PEG ×4 (00:43→18:18)
[2019-01-14] MEDS: LORAZEPAM 2 MG INJ IV ×4 (00:46→18:18)
[2019-01-14] MEDS: INSULIN ASPART [NOVOLOG] 3 ML PEN SC ×6 (00:48→20:55)
[2019-01-14] MEDS: ACCU-CHEK XX ×6 (00:55→20:55)
[2019-01-14] MEDS: IPRATROPIUM (HFA) 12.9 GM INHALER INH ×4 (01:13→19:51)
[2019-01-14] MEDS: ALBUTEROL HFA 8 GM INHALER INH ×4 (01:13→19:51)
[2019-01-14] MEDS: GABAPENTIN (50 MG/ML PO SYG) PEG ×3 (04:49→22:46)
[2019-01-14] MEDS: DIAZEPAM 5 MG TAB PEG ×3 (04:49→21:03)
[2019-01-14] MEDS: LEVOTHYROXINE 100 MCG VIAL IV (04:50)
[2019-01-14] MEDS: NPH, HUMAN INSULIN ISOPHANE 3ML VIAL SC ×3 (04:56→21:11)
[2019-01-14] MEDS: HYDROCODONE/APAP (5/325) TAB PO ×2 (05:59→18:25)
[2019-01-14] MEDS: MEROPENEM 500MG/50 ML (PMX) 50 ML IVPB ×2 (09:43→20:52)
[2019-01-14] MEDS: COLLAGENASE 5 GM (UD JAR) TOP (09:44)
[2019-01-14] MEDS: SEVELAMER CARBONATE 0.8 GM PKT GTB ×3 (09:45→18:18)
[2019-01-14] MEDS: LANTHANUM 500 MG CHEW PEG ×3 (09:46→18:18)
[2019-01-14] MEDS: FAMOTIDINE 20 MG TAB PEG (09:47)
[2019-01-14] MEDS: SERTRALINE 100 MG TAB PEG (09:47)
[2019-01-14] MEDS: MIDODRINE 2.5 MG TAB PEG ×3 (09:47→20:53)
[2019-01-14] MEDS: [UNRECOGNIZED DRUG - REMARK] XX ×2 (13:37→20:56)
[2019-01-14] MEDS: HEPARIN 1000 UNITS/ML 10 ML INJ CATHETER (19:43)
[2019-01-15] MEDS: LORAZEPAM 2 MG INJ IV ×5 (00:36→23:39)
[2019-01-15] MEDS: ACETAMINOPHEN 650MG/20.3ML CUP PEG ×5 (00:36→23:37)
[2019-01-15] MEDS: ACCU-CHEK XX ×6 (01:00→23:07)
[2019-01-15] MEDS: INSULIN ASPART [NOVOLOG] 3 ML PEN SC ×6 (01:00→23:06)
[2019-01-15] MEDS: ALBUTEROL HFA 8 GM INHALER INH ×4 (01:46→19:25)
[2019-01-15] MEDS: IPRATROPIUM (HFA) 12.9 GM INHALER INH ×4 (01:47→19:25)
[2019-01-15] MEDS: [UNRECOGNIZED DRUG - REMARK] XX ×3 (05:22→23:08)
[2019-01-15] MEDS: DIAZEPAM 5 MG TAB PEG ×3 (05:22→22:31)
[2019-01-15] MEDS: GABAPENTIN (50 MG/ML PO SYG) PEG ×3 (05:23→22:31)
[2019-01-15] MEDS: LEVOTHYROXINE 100 MCG VIAL IV (05:23)
[2019-01-15] MEDS: NPH, HUMAN INSULIN ISOPHANE 3ML VIAL SC ×3 (05:25→23:06)
[2019-01-15 06:19] LABS: ADD MAN DIFF? NO
[2019-01-15 06:22] LABS: WHITE BLOOD COUNT 19.1 10^3/ul (4.8-10.8)
[2019-01-15 06:22] LABS: ABNORMAL IP MESSAGE 1; BASOPHIL # 0.1 10^3/ul (0.0-0.1); BASOPHILS % 0.3 % (0.0-2.0); EOSINOPHILS # 0.1 10^3/ul (0.0-0.5); EOSINOPHILS % 0.7 % (0.0-7.0); HEMATOCRIT 18.8 % (37.0-47.0); LYMPHOCYTES % 5.3 % (15.0-51.0); MEAN CORPUSCULAR HEMOGLOBIN 33.2 pg (29.0-33.0); MEAN CORPUSCULAR HGB CONC 32.4 g/dl (32.0-37.0); MEAN CORPUSCULAR VOLUME 102.2 fl (82.0-101.0); MEAN PLATELET VOLUME 10.1 fl (7.4-10.4); MONOCYTE # 1.5 10^3/ul (0.3-0.9); MONOCYTES % 7.6 % (0.0-11.0); NEUTROPHIL # 16.3 10^3/ul (1.6-7.5); NEUTROPHILS % 85.1 % (39.0-77.0); PLATELET COUNT 256 10^3/UL (140-415); RED BLOOD COUNT 1.84 10^6/ul (4.20-5.40); RED CELL DISTRIBUTION WIDTH 16.2 % (11.5-14.5)
[2019-01-15 06:37] LABS: HEMOGLOBIN 6.1 g/dl (12.0-16.0); POSITIVE DIFF @See below
[2019-01-15 07:39] LABS: VANCOMYCIN,RANDOM 17.5 ug/ml
[2019-01-15 07:43] LABS: ANION GAP 12 (5-13); Estimated GFR 11 mL/min (>60)
[2019-01-15 07:57] LABS: BLOOD UREA NITROGEN 41 mg/dl (7-20); CALCIUM 9.4 mg/dl (8.4-10.2); CARBON DIOXIDE 26 mmol/L (21-31); CHLORIDE 95 mmol/L (97-110); CREATININE 4.33 mg/dl (0.44-1.00); GLUCOSE 114 mg/dl (70-220); MAGNESIUM 2.6 mg/dl (1.7-2.5); POTASSIUM 5.5 mmol/L (3.5-5.1); SODIUM 133 mmol/L (135-144)
[2019-01-15] MEDS: COLLAGENASE 5 GM (UD JAR) TOP (09:15)
[2019-01-15] MEDS: MEROPENEM 500MG/50 ML (PMX) 50 ML IVPB ×2 (09:16→22:59)
[2019-01-15] MEDS: HYDROCORTISONE 5 MG TAB NGT ×3 (09:16→22:31)
[2019-01-15] MEDS: SERTRALINE 100 MG TAB PEG (09:17)
[2019-01-15] MEDS: BUSPIRONE 10 MG TAB PEG ×3 (09:17→22:31)
[2019-01-15] MEDS: MIDODRINE 2.5 MG TAB PEG ×3 (09:18→22:32)
[2019-01-15] MEDS: EPOETIN ALFA-EPBX (ESRD) 10,000 UNIT/ML VIAL SC (09:38)
[2019-01-15] MEDS: FAMOTIDINE 20 MG TAB PEG (09:44)
[2019-01-15] MEDS: SOD FERRIC GLUC COMPLX 125 MG in SOD CHLORIDE 0.9% 100 ML IVPB (12:14)
[2019-01-15] MEDS: HEPARIN 1000 UNITS/ML 10 ML INJ CATHETER (15:19)
[2019-01-15] MEDS: HYDROCODONE/APAP (5/325) TAB PO (16:52)
[2019-01-15] MEDS: VANCOMYCIN 1 GM 250 ML IVPB (22:32)
[2019-01-16] MEDS: INSULIN ASPART [NOVOLOG] 3 ML PEN SC ×6 (00:40→21:08)
[2019-01-16] MEDS: ACCU-CHEK XX ×6 (00:41→21:08)
[2019-01-16] MEDS: IPRATROPIUM (HFA) 12.9 GM INHALER INH ×4 (01:21→19:06)
[2019-01-16] MEDS: ALBUTEROL HFA 8 GM INHALER INH ×4 (01:21→19:06)
[2019-01-16] MEDS: ACETAMINOPHEN 650MG/20.3ML CUP PEG ×3 (05:20→17:58)
[2019-01-16] MEDS: DIAZEPAM 5 MG TAB PEG ×3 (05:21→21:01)
[2019-01-16] MEDS: GABAPENTIN (50 MG/ML PO SYG) PEG ×3 (05:21→21:01)
[2019-01-16] MEDS: LEVOTHYROXINE 100 MCG VIAL IV (05:24)
[2019-01-16] MEDS: NPH, HUMAN INSULIN ISOPHANE 3ML VIAL SC ×3 (05:28→21:08)
[2019-01-16] MEDS: [UNRECOGNIZED DRUG - REMARK] XX ×3 (05:30→21:08)
[2019-01-16 06:05] LABS: ADD MAN DIFF? NO
[2019-01-16 06:16] LABS: ABNORMAL IP MESSAGE 1; BASOPHIL # 0.1 10^3/ul (0.0-0.1); BASOPHILS % 0.6 % (0.0-2.0); EOSINOPHILS # 0.2 10^3/ul (0.0-0.5); EOSINOPHILS % 1.4 % (0.0-7.0); HEMATOCRIT 19.5 % (37.0-47.0); LYMPHOCYTES # 1.1 10^3/ul (0.8-2.9); LYMPHOCYTES % 7.5 % (15.0-51.0); MEAN CORPUSCULAR HEMOGLOBIN 32.1 pg (29.0-33.0); MEAN CORPUSCULAR HGB CONC 31.3 g/dl (32.0-37.0); MEAN CORPUSCULAR VOLUME 102.6 fl (82.0-101.0); MEAN PLATELET VOLUME 10.2 fl (7.4-10.4); MONOCYTE # 1.3 10^3/ul (0.3-0.9); MONOCYTES % 9.2 % (0.0-11.0); NEUTROPHIL # 11.2 10^3/ul (1.6-7.5); NEUTROPHILS % 80.1 % (39.0-77.0); PLATELET COUNT 293 10^3/UL (140-415); RED CELL DISTRIBUTION WIDTH 16.3 % (11.5-14.5)
[2019-01-16 06:25] LABS: POSITIVE DIFF @See below
[2019-01-16 06:27] LABS: HEMOGLOBIN 6.1 g/dl (12.0-16.0)
[2019-01-16 06:41] LABS: ANION GAP 9 (5-13); BLOOD UREA NITROGEN 32 mg/dl (7-20); CALCIUM 9.4 mg/dl (8.4-10.2); CARBON DIOXIDE 27 mmol/L (21-31); CHLORIDE 98 mmol/L (97-110); CREATININE 3.13 mg/dl (0.44-1.00); Estimated GFR 16 mL/min (>60); GLUCOSE 93 mg/dl (70-220); MAGNESIUM 2.4 mg/dl (1.7-2.5); PHOSPHORUS 1.9 mg/dl (2.5-4.9); POTASSIUM 4.6 mmol/L (3.5-5.1); SODIUM 134 mmol/L (135-144)
[2019-01-16] MEDS ORDERED: MEROPENEM 500MG/50 ML (PMX) 50 ML IVPB (09:00)
[2019-01-16] MEDS: LORAZEPAM 2 MG INJ IV ×3 (09:00→20:44)
[2019-01-16] MEDS: MEROPENEM 500MG/50 ML (PMX) 50 ML IVPB (09:18)
[2019-01-16] MEDS: HYDROCORTISONE 5 MG TAB NGT ×3 (09:19→20:45)
[2019-01-16] MEDS: SERTRALINE 100 MG TAB PEG (09:19)
[2019-01-16] MEDS: NEUTRA-PHOS 250 MG PACKET PO (09:19)
[2019-01-16] MEDS: BUSPIRONE 10 MG TAB PEG ×3 (09:22→20:45)
[2019-01-16] MEDS: MIDODRINE 2.5 MG TAB PEG ×3 (11:40→20:45)
[2019-01-16] MEDS: COLLAGENASE 5 GM (UD JAR) TOP (11:40)
[2019-01-16] MEDS: SOD FERRIC GLUC COMPLX 125 MG in SOD CHLORIDE 0.9% 100 ML IVPB (13:21)
[2019-01-16] MEDS: HYDROCODONE/APAP (5/325) TAB PO (14:40)
[2019-01-16] MEDS: EPOETIN ALFA-EPBX (ESRD) 10,000 UNIT/ML VIAL SC (18:07)
[2019-01-17] MEDS: ACETAMINOPHEN 650MG/20.3ML CUP PEG ×4 (00:41→18:18)
[2019-01-17] MEDS: DIPHENHYDRAMINE 50 MG CAP PEG (00:42)
[2019-01-17] MEDS: INSULIN ASPART [NOVOLOG] 3 ML PEN SC ×6 (00:48→22:08)
[2019-01-17] MEDS: ACCU-CHEK XX ×6 (00:53→21:00)
[2019-01-17] MEDS: IPRATROPIUM (HFA) 12.9 GM INHALER INH ×4 (01:14→19:39)
[2019-01-17] MEDS: ALBUTEROL HFA 8 GM INHALER INH ×4 (01:14→19:39)
[2019-01-17] MEDS: [UNRECOGNIZED DRUG - REMARK] XX ×3 (05:30→21:30)
[2019-01-17] MEDS: GABAPENTIN (50 MG/ML PO SYG) PEG ×3 (05:32→22:03)
[2019-01-17] MEDS: LEVOTHYROXINE 100 MCG VIAL IV (05:32)
[2019-01-17] MEDS: CIPROFLOXACIN 250 MG TAB PO (05:32)
[2019-01-17] MEDS: DIAZEPAM 5 MG TAB PEG ×3 (05:33→21:52)
[2019-01-17] MEDS: NPH, HUMAN INSULIN ISOPHANE 3ML VIAL SC ×3 (05:45→22:09)
[2019-01-17] MEDS: BUSPIRONE 10 MG TAB PEG ×3 (08:27→21:52)
[2019-01-17] MEDS: LORAZEPAM 2 MG INJ IV ×2 (08:27→21:52)
[2019-01-17] MEDS: HYDROCORTISONE 5 MG TAB NGT ×3 (08:27→21:52)
[2019-01-17] MEDS: SERTRALINE 100 MG TAB PEG (08:28)
[2019-01-17] MEDS: COLLAGENASE 5 GM (UD JAR) TOP (08:28)
[2019-01-17] MEDS: MIDODRINE 2.5 MG TAB PEG ×3 (08:28→21:00)
[2019-01-17] MEDS: HYDROCODONE/APAP (5/325) TAB PO ×2 (09:27→16:44)
[2019-01-17] MEDS: HEPARIN 1000 UNITS/ML 10 ML INJ CATHETER (11:09)
[2019-01-17] MEDS: SOD FERRIC GLUC COMPLX 125 MG in SOD CHLORIDE 0.9% 100 ML IVPB (13:16)
[2019-01-18] MEDS: ACETAMINOPHEN 650MG/20.3ML CUP PEG ×4 (00:54→17:18)
[2019-01-18] MEDS: INSULIN ASPART [NOVOLOG] 3 ML PEN SC ×6 (00:56→20:36)
[2019-01-18] MEDS: ACCU-CHEK XX ×6 (01:04→20:44)
[2019-01-18] MEDS: ALBUTEROL HFA 8 GM INHALER INH ×4 (01:15→19:36)
[2019-01-18] MEDS: IPRATROPIUM (HFA) 12.9 GM INHALER INH ×4 (01:15→19:36)
[2019-01-18] MEDS: HYDROCODONE/APAP (5/325) TAB PO (05:35)
[2019-01-18] MEDS: [UNRECOGNIZED DRUG - REMARK] XX ×3 (05:35→20:45)
[2019-01-18] MEDS: GABAPENTIN (50 MG/ML PO SYG) PEG ×3 (05:47→21:37)
[2019-01-18] MEDS: CIPROFLOXACIN 250 MG TAB PO (05:48)
[2019-01-18] MEDS: DIAZEPAM 5 MG TAB PEG ×3 (05:48→21:37)
[2019-01-18] MEDS: LEVOTHYROXINE 100 MCG VIAL IV (05:49)
[2019-01-18] MEDS: NPH, HUMAN INSULIN ISOPHANE 3ML VIAL SC ×3 (05:52→21:39)
[2019-01-18 06:56] LABS: VANCOMYCIN,RANDOM 15.8 ug/ml
[2019-01-18] MEDS: COLLAGENASE 5 GM (UD JAR) TOP (08:44)
[2019-01-18] MEDS: SERTRALINE 100 MG TAB PEG (08:44)
[2019-01-18] MEDS: BUSPIRONE 10 MG TAB PEG ×3 (08:44→20:36)
[2019-01-18] MEDS: HYDROCORTISONE 5 MG TAB NGT ×3 (08:44→20:35)
[2019-01-18] MEDS: MIDODRINE 2.5 MG TAB PEG ×4 (08:49→20:35)
[2019-01-18] MEDS: LORAZEPAM 2 MG INJ IV ×2 (08:50→20:44)
[2019-01-18] MEDS: SOD FERRIC GLUC COMPLX 125 MG in SOD CHLORIDE 0.9% 100 ML IVPB (13:24)
[2019-01-18] MEDS: HEPARIN 1000 UNITS/ML 10 ML INJ CATHETER (14:05)
[2019-01-18] MEDS: GUAIFENESIN 20 MG/ML 5ML CUP GTB (15:45)
[2019-01-18] MEDS: VANCOMYCIN 1 GM 250 ML IVPB (16:32)
[2019-01-18] MEDS: LORAZEPAM 0.5 MG TAB NGT (18:26)
[2019-01-19] MEDS: GUAIFENESIN 20 MG/ML 5ML CUP GTB (00:33)
[2019-01-19] MEDS: LORAZEPAM 0.5 MG TAB NGT (00:33)
[2019-01-19] MEDS: ACETAMINOPHEN 650MG/20.3ML CUP PEG ×4 (00:35→17:37)
[2019-01-19] MEDS: INSULIN ASPART [NOVOLOG] 3 ML PEN SC ×6 (00:36→21:47)
[2019-01-19] MEDS: ACCU-CHEK XX ×6 (00:52→21:48)
[2019-01-19] MEDS: ALBUTEROL HFA 8 GM INHALER INH ×4 (01:17→20:54)
[2019-01-19] MEDS: IPRATROPIUM (HFA) 12.9 GM INHALER INH ×4 (01:17→20:54)
[2019-01-19] MEDS: HYDROCODONE/APAP (5/325) TAB PO (02:03)
[2019-01-19] MEDS: GABAPENTIN (50 MG/ML PO SYG) PEG ×3 (05:15→21:32)
[2019-01-19] MEDS: LEVOTHYROXINE 100 MCG VIAL IV (05:15)
[2019-01-19] MEDS: [UNRECOGNIZED DRUG - REMARK] XX ×3 (05:15→21:30)
[2019-01-19] MEDS: CIPROFLOXACIN 250 MG TAB PO (05:16)
[2019-01-19] MEDS: DIAZEPAM 5 MG TAB PEG ×3 (05:16→21:32)
[2019-01-19] MEDS: NPH, HUMAN INSULIN ISOPHANE 3ML VIAL SC ×3 (05:52→21:47)
[2019-01-19] MEDS: MIDODRINE 2.5 MG TAB PEG ×3 (08:26→20:27)
[2019-01-19] MEDS: COLLAGENASE 5 GM (UD JAR) TOP (08:39)
[2019-01-19] MEDS: BUSPIRONE 10 MG TAB PEG ×3 (08:40→20:27)
[2019-01-19] MEDS: SERTRALINE 100 MG TAB PEG (08:40)
[2019-01-19] MEDS: HYDROCORTISONE 5 MG TAB NGT ×3 (08:40→20:28)
[2019-01-19] MEDS: SOD FERRIC GLUC COMPLX 125 MG in SOD CHLORIDE 0.9% 100 ML IVPB (12:52)
[2019-01-19] MEDS: VANCOMYCIN HCL 250 MG/5ML POSYG PO (17:36)
[2019-01-19] MEDS: EPOETIN ALFA-EPBX (ESRD) 10,000 UNIT/ML VIAL SC (17:37)
[2019-01-19] MEDS: HEPARIN 1000 UNITS/ML 10 ML INJ CATHETER (18:34)
[2019-01-20] MEDS: VANCOMYCIN HCL 250 MG/5ML POSYG PO ×4 (00:14→17:46)
[2019-01-20] MEDS: ACETAMINOPHEN 650MG/20.3ML CUP PEG ×4 (00:14→17:46)
[2019-01-20] MEDS: INSULIN ASPART [NOVOLOG] 3 ML PEN SC ×6 (00:34→21:59)
[2019-01-20] MEDS: ACCU-CHEK XX ×6 (00:50→21:54)
[2019-01-20] MEDS: IPRATROPIUM (HFA) 12.9 GM INHALER INH ×4 (01:12→19:51)
[2019-01-20] MEDS: ALBUTEROL HFA 8 GM INHALER INH ×4 (01:12→19:51)
[2019-01-20] MEDS: DIPHENHYDRAMINE 50 MG CAP PEG (02:52)
[2019-01-20 05:23] LABS: ADD MAN DIFF? NO
[2019-01-20 05:28] LABS: ABNORMAL IP MESSAGE 1; BASOPHIL # 0.1 10^3/ul (0.0-0.1); BASOPHILS % 0.6 % (0.0-2.0); EOSINOPHILS # 0.1 10^3/ul (0.0-0.5); EOSINOPHILS % 1.5 % (0.0-7.0); LYMPHOCYTES # 0.8 10^3/ul (0.8-2.9); LYMPHOCYTES % 8.8 % (15.0-51.0); MEAN CORPUSCULAR HEMOGLOBIN 32.8 pg (29.0-33.0); MEAN CORPUSCULAR HGB CONC 31.5 g/dl (32.0-37.0); MEAN CORPUSCULAR VOLUME 104.2 fl (82.0-101.0); MONOCYTE # 0.8 10^3/ul (0.3-0.9); MONOCYTES % 8.4 % (0.0-11.0); NEUTROPHIL # 7.6 10^3/ul (1.6-7.5); NEUTROPHILS % 79.5 % (39.0-77.0); PLATELET COUNT 375 10^3/UL (140-415); RED BLOOD COUNT 1.92 10^6/ul (4.20-5.40); RED CELL DISTRIBUTION WIDTH 18.2 % (11.5-14.5)
[2019-01-20 05:28] LABS: WHITE BLOOD COUNT 9.5 10^3/ul (4.8-10.8)
[2019-01-20] MEDS: [UNRECOGNIZED DRUG - REMARK] XX ×2 (05:30→13:12)
[2019-01-20 05:51] LABS: ANION GAP 10 (5-13); BLOOD UREA NITROGEN 36 mg/dl (7-20); CALCIUM 9.6 mg/dl (8.4-10.2); CARBON DIOXIDE 27 mmol/L (21-31); CHLORIDE 99 mmol/L (97-110); CREATININE 3.13 mg/dl (0.44-1.00); Estimated GFR 16 mL/min (>60); GLUCOSE 107 mg/dl (70-220); POSITIVE DIFF @See below; SODIUM 136 mmol/L (135-144)
[2019-01-20 05:52] LABS: HEMOGLOBIN 6.3 g/dl (12.0-16.0)
[2019-01-20] MEDS: NPH, HUMAN INSULIN ISOPHANE 3ML VIAL SC ×3 (06:00→21:59)
[2019-01-20] MEDS: LEVOTHYROXINE 100 MCG VIAL IV (06:17)
[2019-01-20] MEDS: CIPROFLOXACIN 250 MG TAB PO (06:18)
[2019-01-20] MEDS: GABAPENTIN (50 MG/ML PO SYG) PEG ×3 (06:18→21:48)
[2019-01-20] MEDS: DIAZEPAM 5 MG TAB PEG ×3 (06:18→21:48)
[2019-01-20] MEDS: MIDODRINE 2.5 MG TAB PEG ×3 (09:00→21:00)
[2019-01-20] MEDS: COLLAGENASE 5 GM (UD JAR) TOP (09:00)
[2019-01-20] MEDS: HYDROCORTISONE 5 MG TAB NGT ×3 (09:27→21:48)
[2019-01-20] MEDS: SERTRALINE 100 MG TAB PEG (09:27)
[2019-01-20] MEDS: BUSPIRONE 10 MG TAB PEG ×3 (09:27→21:48)
[2019-01-20] MEDS: HYDROCODONE/APAP (5/325) TAB PO (17:47)
[2019-01-20] MEDS: HEPARIN 1000 UNITS/ML 10 ML INJ CATHETER (18:55)
[2019-01-21] MEDS: ACETAMINOPHEN 650MG/20.3ML CUP PEG ×4 (00:26→17:20)
[2019-01-21] MEDS: VANCOMYCIN HCL 250 MG/5ML POSYG PO ×4 (00:26→17:21)
[2019-01-21] MEDS: INSULIN ASPART [NOVOLOG] 3 ML PEN SC ×6 (01:00→21:00)
[2019-01-21] MEDS: ACCU-CHEK XX ×6 (01:01→21:46)
[2019-01-21] MEDS: ALBUTEROL HFA 8 GM INHALER INH ×4 (01:10→19:32)
[2019-01-21] MEDS: IPRATROPIUM (HFA) 12.9 GM INHALER INH ×4 (01:10→19:32)
[2019-01-21] MEDS: CIPROFLOXACIN 250 MG TAB PO (05:05)
[2019-01-21] MEDS: GABAPENTIN (50 MG/ML PO SYG) PEG ×3 (05:06→21:24)
[2019-01-21] MEDS: DIAZEPAM 5 MG TAB PEG ×3 (05:09→21:24)
[2019-01-21] MEDS: LEVOTHYROXINE 100 MCG VIAL IV (05:11)
[2019-01-21] MEDS: NPH, HUMAN INSULIN ISOPHANE 3ML VIAL SC ×3 (06:03→21:53)
[2019-01-21] MEDS: BUSPIRONE 10 MG TAB PEG ×3 (09:13→21:24)
[2019-01-21] MEDS: SERTRALINE 100 MG TAB PEG (09:13)
[2019-01-21] MEDS: FAMOTIDINE 20 MG TAB PO (09:13)
[2019-01-21] MEDS: COLLAGENASE 5 GM (UD JAR) TOP (09:13)
[2019-01-21] MEDS: MIDODRINE 2.5 MG TAB PEG ×3 (09:13→21:00)
[2019-01-21] MEDS: HYDROCORTISONE 5 MG TAB NGT ×3 (09:15→21:24)
[2019-01-21] MEDS: EPOETIN ALFA-EPBX (ESRD) 10,000 UNIT/ML VIAL SC (17:21)
[2019-01-21] MEDS: HEPARIN 1000 UNITS/ML 10 ML INJ CATHETER (18:44)
[2019-01-22] MEDS: VANCOMYCIN HCL 250 MG/5ML POSYG PO ×4 (00:46→17:29)
[2019-01-22] MEDS: ACETAMINOPHEN 650MG/20.3ML CUP PEG ×4 (00:46→17:29)
[2019-01-22] MEDS: INSULIN ASPART [NOVOLOG] 3 ML PEN SC ×6 (00:52→20:49)
[2019-01-22] MEDS: ACCU-CHEK XX ×6 (00:52→20:50)
[2019-01-22] MEDS: IPRATROPIUM (HFA) 12.9 GM INHALER INH ×4 (01:26→19:38)
[2019-01-22] MEDS: ALBUTEROL HFA 8 GM INHALER INH ×4 (01:27→19:38)
[2019-01-22 05:52] LABS: ADD MAN DIFF? NO
[2019-01-22] MEDS: LEVOTHYROXINE 100 MCG VIAL IV (05:57)
[2019-01-22] MEDS: CIPROFLOXACIN 250 MG TAB PO (05:59)
[2019-01-22] MEDS: GABAPENTIN (50 MG/ML PO SYG) PEG ×3 (05:59→21:20)
[2019-01-22 06:03] LABS: WHITE BLOOD COUNT 9.7 10^3/ul (4.8-10.8)
[2019-01-22 06:03] LABS: ABNORMAL IP MESSAGE 1; BASOPHIL # 0.1 10^3/ul (0.0-0.1); BASOPHILS % 0.7 % (0.0-2.0); EOSINOPHILS # 0.2 10^3/ul (0.0-0.5); EOSINOPHILS % 1.9 % (0.0-7.0); HEMATOCRIT 20.6 % (37.0-47.0); LYMPHOCYTES % 10.2 % (15.0-51.0); MEAN CORPUSCULAR HEMOGLOBIN 33.3 pg (29.0-33.0); MEAN CORPUSCULAR HGB CONC 31.1 g/dl (32.0-37.0); MEAN CORPUSCULAR VOLUME 107.3 fl (82.0-101.0); MEAN PLATELET VOLUME 9.7 fl (7.4-10.4); MONOCYTE # 0.9 10^3/ul (0.3-0.9); MONOCYTES % 8.8 % (0.0-11.0); NEUTROPHIL # 7.5 10^3/ul (1.6-7.5); NEUTROPHILS % 77.7 % (39.0-77.0); PLATELET COUNT 408 10^3/UL (140-415); RED BLOOD COUNT 1.92 10^6/ul (4.20-5.40)
[2019-01-22] MEDS: DIAZEPAM 5 MG TAB PEG ×3 (06:08→21:20)
[2019-01-22 06:26] LABS: HEMOGLOBIN 6.4 g/dl (12.0-16.0); POSITIVE DIFF @See below
[2019-01-22] MEDS: NPH, HUMAN INSULIN ISOPHANE 3ML VIAL SC ×3 (06:28→21:30)
[2019-01-22 06:30] LABS: VANCOMYCIN,RANDOM 12.9 ug/ml
[2019-01-22 07:04] LABS: ANION GAP 8 (5-13); BLOOD UREA NITROGEN 22 mg/dl (7-20); CALCIUM 9.4 mg/dl (8.4-10.2); CARBON DIOXIDE 27 mmol/L (21-31); CHLORIDE 101 mmol/L (97-110); CREATININE 2.33 mg/dl (0.44-1.00); Estimated GFR 23 mL/min (>60); GLUCOSE 154 mg/dl (70-220); POTASSIUM 4.3 mmol/L (3.5-5.1); SODIUM 136 mmol/L (135-144)
[2019-01-22] MEDS: BUSPIRONE 10 MG TAB PEG ×3 (09:03→20:51)
[2019-01-22] MEDS: HYDROCORTISONE 5 MG TAB NGT ×3 (09:03→20:51)
[2019-01-22] MEDS: FAMOTIDINE 20 MG TAB PO (09:03)
[2019-01-22] MEDS: COLLAGENASE 5 GM (UD JAR) TOP (09:03)
[2019-01-22] MEDS: SERTRALINE 100 MG TAB PEG (09:03)
[2019-01-22] MEDS: MIDODRINE 2.5 MG TAB PEG ×3 (09:04→20:49)
[2019-01-22] MEDS: VANCOMYCIN 1 GM 250 ML IVPB (17:29)
[2019-01-22] MEDS: HEPARIN 1000 UNITS/ML 10 ML INJ CATHETER (17:57)
[2019-01-23] MEDS: VANCOMYCIN HCL 250 MG/5ML POSYG PO ×4 (00:42→17:05)
[2019-01-23] MEDS: ACETAMINOPHEN 650MG/20.3ML CUP PEG ×3 (00:43→11:25)
[2019-01-23] MEDS: INSULIN ASPART [NOVOLOG] 3 ML PEN SC ×6 (00:59→21:00)
[2019-01-23] MEDS: ACCU-CHEK XX ×6 (01:00→21:00)
[2019-01-23] MEDS: ALBUTEROL HFA 8 GM INHALER INH ×4 (01:45→20:00)
[2019-01-23] MEDS: IPRATROPIUM (HFA) 12.9 GM INHALER INH ×4 (01:45→20:00)
[2019-01-23] MEDS: LEVOTHYROXINE 100 MCG VIAL IV (05:27)
[2019-01-23] MEDS: CIPROFLOXACIN 250 MG TAB PO (05:27)
[2019-01-23] MEDS: GABAPENTIN (50 MG/ML PO SYG) PEG ×3 (05:27→21:37)
[2019-01-23] MEDS: NPH, HUMAN INSULIN ISOPHANE 3ML VIAL SC ×3 (05:36→22:06)
[2019-01-23] MEDS: DIAZEPAM 5 MG TAB PEG ×3 (05:39→21:37)
[2019-01-23] MEDS: MIDODRINE 2.5 MG TAB PEG ×3 (09:00→21:00)
[2019-01-23] MEDS: COLLAGENASE 5 GM (UD JAR) TOP (09:05)
[2019-01-23] MEDS: SERTRALINE 100 MG TAB PEG (09:05)
[2019-01-23] MEDS: HYDROCORTISONE 5 MG TAB NGT ×3 (09:06→21:37)
[2019-01-23] MEDS: BUSPIRONE 10 MG TAB PEG ×3 (09:07→21:37)
[2019-01-23] MEDS: FAMOTIDINE 20 MG TAB PO (09:07)
[2019-01-23] MEDS: ONDANSETRON 4 MG INJ IV (11:40)
[2019-01-23] MEDS ORDERED: ACETAMINOPHEN 650MG/20.3ML CUP PEG (12:00)
[2019-01-23 15:08] LABS: WHITE BLOOD COUNT 9.3 10^3/ul (4.8-10.8)
[2019-01-23 15:08] LABS: ABNORMAL IP MESSAGE 1; HEMATOCRIT 21.1 % (37.0-47.0); MEAN CORPUSCULAR HEMOGLOBIN 33.3 pg (29.0-33.0); MEAN CORPUSCULAR HGB CONC 30.8 g/dl (32.0-37.0); MEAN CORPUSCULAR VOLUME 108.2 fl (82.0-101.0); MEAN PLATELET VOLUME 9.8 fl (7.4-10.4); PLATELET COUNT 390 10^3/UL (140-415); RED BLOOD COUNT 1.95 10^6/ul (4.20-5.40); RED CELL DISTRIBUTION WIDTH 19.6 % (11.5-14.5)
[2019-01-23 15:18] LABS: HEMOGLOBIN 6.5 g/dl (12.0-16.0); POSITIVE DIFF @See below
[2019-01-23 15:25] LABS: ANION GAP 10 (5-13); BLOOD UREA NITROGEN 22 mg/dl (7-20); CALCIUM 9.7 mg/dl (8.4-10.2); CARBON DIOXIDE 28 mmol/L (21-31); CHLORIDE 100 mmol/L (97-110); CREATININE 2.46 mg/dl (0.44-1.00); Estimated GFR 22 mL/min (>60); GLUCOSE 174 mg/dl (70-220); POTASSIUM 4.1 mmol/L (3.5-5.1); SODIUM 138 mmol/L (135-144)
[2019-01-23 16:13] LABS: ADD MAN DIFF? NO
[2019-01-23 16:14] LABS: EOSINOPHILS % 2.6 % (0.0-7.0); LYMPHOCYTES % 8.4 % (15.0-51.0); MONOCYTES % 7.9 % (0.0-11.0); NEUTROPHILS % 79.6 % (39.0-77.0)
[2019-01-23] MEDS: EPOETIN ALFA-EPBX (ESRD) 10,000 UNIT/ML VIAL SC (17:06)
[2019-01-24] MEDS: VANCOMYCIN HCL 250 MG/5ML POSYG PO ×4 (00:44→17:15)
[2019-01-24] MEDS: ACCU-CHEK XX ×6 (00:51→21:00)
[2019-01-24] MEDS: INSULIN ASPART [NOVOLOG] 3 ML PEN SC ×6 (00:51→22:24)
[2019-01-24] MEDS: ALBUTEROL HFA 8 GM INHALER INH ×4 (01:25→20:57)
[2019-01-24] MEDS: IPRATROPIUM (HFA) 12.9 GM INHALER INH ×4 (01:25→20:57)
[2019-01-24] MEDS: LORAZEPAM 0.5 MG TAB NGT (01:38)
[2019-01-24] MEDS: LEVOTHYROXINE 100 MCG VIAL IV (05:16)
[2019-01-24] MEDS: GABAPENTIN (50 MG/ML PO SYG) PEG ×3 (05:16→22:10)
[2019-01-24] MEDS: DIAZEPAM 5 MG TAB PEG ×3 (05:16→22:11)
[2019-01-24] MEDS: CIPROFLOXACIN 250 MG TAB PO (05:16)
[2019-01-24] MEDS: NPH, HUMAN INSULIN ISOPHANE 3ML VIAL SC ×3 (05:33→22:25)
[2019-01-24 06:32] LABS: ADD MAN DIFF? NO
[2019-01-24 06:45] LABS: WHITE BLOOD COUNT 9.8 10^3/ul (4.8-10.8)
[2019-01-24 06:46] LABS: ABNORMAL IP MESSAGE 1; BASOPHIL # 0.1 10^3/ul (0.0-0.1); BASOPHILS % 0.8 % (0.0-2.0); EOSINOPHILS % 0.1 % (0.0-7.0); LYMPHOCYTES # 0.9 10^3/ul (0.8-2.9); LYMPHOCYTES % 9.6 % (15.0-51.0); MEAN CORPUSCULAR VOLUME 106.4 fl (82.0-101.0); MONOCYTE # 0.9 10^3/ul (0.3-0.9); MONOCYTES % 8.9 % (0.0-11.0); NEUTROPHIL # 7.8 10^3/ul (1.6-7.5); PLATELET COUNT 405 10^3/UL (140-415); RED BLOOD COUNT 1.88 10^6/ul (4.20-5.40); RED CELL DISTRIBUTION WIDTH 19.1 % (11.5-14.5)
[2019-01-24 07:11] LABS: HEMOGLOBIN 6.4 g/dl (12.0-16.0); POSITIVE DIFF @See below
[2019-01-24 08:09] LABS: ANION GAP 10 (5-13); BLOOD UREA NITROGEN 30 mg/dl (7-20); CALCIUM 9.7 mg/dl (8.4-10.2); CARBON DIOXIDE 27 mmol/L (21-31); CHLORIDE 101 mmol/L (97-110); Estimated GFR 18 mL/min (>60); GLUCOSE 87 mg/dl (70-220); POTASSIUM 4.6 mmol/L (3.5-5.1); SODIUM 138 mmol/L (135-144)
[2019-01-24] MEDS: MIDODRINE 2.5 MG TAB PEG ×3 (08:52→22:10)
[2019-01-24] MEDS: SERTRALINE 100 MG TAB PEG (08:52)
[2019-01-24] MEDS: FAMOTIDINE 20 MG TAB PO (08:52)
[2019-01-24] MEDS: BUSPIRONE 10 MG TAB PEG ×3 (08:52→22:11)
[2019-01-24] MEDS: HYDROCORTISONE 5 MG TAB NGT ×3 (08:52→22:11)
[2019-01-24] MEDS: COLLAGENASE 5 GM (UD JAR) TOP (08:53)
[2019-01-24 13:59] LABS: ADD MAN DIFF? NO
[2019-01-24 14:00] LABS: WHITE BLOOD COUNT 12.8 10^3/ul (4.8-10.8)
[2019-01-24 14:00] LABS: ABNORMAL IP MESSAGE 1; BASOPHIL # 0.1 10^3/ul (0.0-0.1); BASOPHILS % 0.7 % (0.0-2.0); EOSINOPHILS % 0.2 % (0.0-7.0); HEMATOCRIT 21.3 % (37.0-47.0); LYMPHOCYTES # 0.5 10^3/ul (0.8-2.9); LYMPHOCYTES % 4.2 % (15.0-51.0); MEAN CORPUSCULAR HEMOGLOBIN 33.8 pg (29.0-33.0); MEAN CORPUSCULAR HGB CONC 31.5 g/dl (32.0-37.0); MEAN CORPUSCULAR VOLUME 107.6 fl (82.0-101.0); MEAN PLATELET VOLUME 9.6 fl (7.4-10.4); MONOCYTE # 0.7 10^3/ul (0.3-0.9); MONOCYTES % 5.2 % (0.0-11.0); NEUTROPHIL # 11.4 10^3/ul (1.6-7.5); NEUTROPHILS % 89.2 % (39.0-77.0); PLATELET COUNT 389 10^3/UL (140-415); RED BLOOD COUNT 1.98 10^6/ul (4.20-5.40); RED CELL DISTRIBUTION WIDTH 19.7 % (11.5-14.5)
[2019-01-24 14:05] LABS: HEMOGLOBIN 6.7 g/dl (12.0-16.0); POSITIVE DIFF @See below
[2019-01-24 14:18] LABS: ALANINE AMINOTRANSFERASE 23 IU/L (13-69); ALBUMIN 3.2 g/dl (3.3-4.9); ALKALINE PHOSPHATASE 243 IU/L (42-121); ANION GAP 8 (5-13); ASPARTATE AMINO TRANSFERASE 27 IU/L (15-46); BILIRUBIN,INDIRECT 0.3 mg/dl (0-1.1); BILIRUBIN,TOTAL 0.3 mg/dl (0.2-1.3); BLOOD UREA NITROGEN 18 mg/dl (7-20); CALCIUM 9.3 mg/dl (8.4-10.2); CARBON DIOXIDE 29 mmol/L (21-31); CHLORIDE 100 mmol/L (97-110); CREATININE 1.99 mg/dl (0.44-1.00); Estimated GFR 27 mL/min (>60); GLUCOSE 158 mg/dl (70-220); POTASSIUM 4.1 mmol/L (3.5-5.1); SODIUM 137 mmol/L (135-144); TOTAL PROTEIN 6.8 g/dl (6.1-8.1)
[2019-01-24] MEDS: HEPARIN 1000 UNITS/ML 10 ML INJ CATHETER (15:15)
[2019-01-24] MEDS: HYDROCODONE/APAP (5/325) TAB PO (22:29)
[2019-01-25] MEDS: VANCOMYCIN HCL 250 MG/5ML POSYG PO ×4 (00:52→17:40)
[2019-01-25] MEDS: INSULIN ASPART [NOVOLOG] 3 ML PEN SC ×6 (01:00→22:18)
[2019-01-25] MEDS: ALBUTEROL HFA 8 GM INHALER INH ×4 (01:38→20:44)
[2019-01-25] MEDS: IPRATROPIUM (HFA) 12.9 GM INHALER INH ×4 (01:39→20:44)
[2019-01-25] MEDS: ACCU-CHEK XX ×6 (01:48→21:10)
[2019-01-25 05:50] LABS: ADD MAN DIFF? NO
[2019-01-25 05:51] LABS: WHITE BLOOD COUNT 9.6 10^3/ul (4.8-10.8)
[2019-01-25 05:51] LABS: ABNORMAL IP MESSAGE 1; BASOPHIL # 0.1 10^3/ul (0.0-0.1); BASOPHILS % 0.8 % (0.0-2.0); EOSINOPHILS # 0.1 10^3/ul (0.0-0.5); EOSINOPHILS % 1.4 % (0.0-7.0); LYMPHOCYTES # 0.9 10^3/ul (0.8-2.9); MEAN CORPUSCULAR HEMOGLOBIN 33.5 pg (29.0-33.0); MEAN CORPUSCULAR HGB CONC 31.4 g/dl (32.0-37.0); MEAN CORPUSCULAR VOLUME 106.6 fl (82.0-101.0); MEAN PLATELET VOLUME 10.1 fl (7.4-10.4); MONOCYTE # 0.9 10^3/ul (0.3-0.9); MONOCYTES % 9.5 % (0.0-11.0); NEUTROPHIL # 7.6 10^3/ul (1.6-7.5); NUCLEATED RED BLOOD CELLS% 0.2 /100WBC (0.0-0.0); PLATELET COUNT 376 10^3/UL (140-415); RED BLOOD COUNT 1.97 10^6/ul (4.20-5.40); RED CELL DISTRIBUTION WIDTH 19.7 % (11.5-14.5)
[2019-01-25] MEDS: DIAZEPAM 5 MG TAB PEG ×3 (06:03→21:10)
[2019-01-25] MEDS: GABAPENTIN (50 MG/ML PO SYG) PEG ×3 (06:03→21:09)
[2019-01-25] MEDS: CIPROFLOXACIN 250 MG TAB PO (06:04)
[2019-01-25] MEDS: DIPHENHYDRAMINE 50 MG CAP PEG (06:14)
[2019-01-25] MEDS: NPH, HUMAN INSULIN ISOPHANE 3ML VIAL SC ×3 (06:30→22:29)
[2019-01-25 06:32] LABS: HEMOGLOBIN 6.6 g/dl (12.0-16.0); POSITIVE DIFF @See below
[2019-01-25] MEDS: LEVOTHYROXINE 100 MCG VIAL IV (06:32)
[2019-01-25 06:39] LABS: ANION GAP 8 (5-13); BLOOD UREA NITROGEN 22 mg/dl (7-20); CALCIUM 9.6 mg/dl (8.4-10.2); CARBON DIOXIDE 29 mmol/L (21-31); CHLORIDE 100 mmol/L (97-110); CREATININE 2.35 mg/dl (0.44-1.00); Estimated GFR 23 mL/min (>60); GLUCOSE 95 mg/dl (70-220); POTASSIUM 4.6 mmol/L (3.5-5.1); SODIUM 137 mmol/L (135-144)
[2019-01-25] MEDS: SERTRALINE 100 MG TAB PEG (09:46)
[2019-01-25] MEDS: MIDODRINE 2.5 MG TAB PEG ×3 (09:46→21:10)
[2019-01-25] MEDS: COLLAGENASE 5 GM (UD JAR) TOP (09:46)
[2019-01-25] MEDS: BUSPIRONE 10 MG TAB PEG ×3 (09:46→21:10)
[2019-01-25] MEDS: FAMOTIDINE 20 MG TAB PO (09:46)
[2019-01-25] MEDS: HYDROCORTISONE 5 MG TAB NGT ×3 (09:46→21:10)
[2019-01-25] MEDS: ONDANSETRON 4 MG INJ IV (17:45)
[2019-01-26] MEDS: INSULIN ASPART [NOVOLOG] 3 ML PEN SC ×6 (00:08→21:00)
[2019-01-26] MEDS: VANCOMYCIN HCL 250 MG/5ML POSYG PO ×4 (00:12→17:42)
[2019-01-26] MEDS: ACCU-CHEK XX ×6 (01:14→21:24)
[2019-01-26] MEDS: IPRATROPIUM (HFA) 12.9 GM INHALER INH ×4 (01:38→20:25)
[2019-01-26] MEDS: ALBUTEROL HFA 8 GM INHALER INH ×4 (01:38→20:25)
[2019-01-26] MEDS: LEVOTHYROXINE 100 MCG VIAL IV (05:39)
[2019-01-26] MEDS: GABAPENTIN (50 MG/ML PO SYG) PEG ×3 (05:39→21:24)
[2019-01-26] MEDS: DIAZEPAM 5 MG TAB PEG ×3 (05:40→21:23)
[2019-01-26] MEDS: CIPROFLOXACIN 250 MG TAB PO (05:40)
[2019-01-26] MEDS: NPH, HUMAN INSULIN ISOPHANE 3ML VIAL SC ×3 (06:39→21:57)
[2019-01-26] MEDS: COLLAGENASE 5 GM (UD JAR) TOP (08:57)
[2019-01-26] MEDS: HYDROCORTISONE 5 MG TAB NGT ×3 (09:00→21:23)
[2019-01-26 10:38] LABS: HEPATITIS B SURFACE ANTIGEN NEGATIVE (NEGATIVE)
[2019-01-26] MEDS: HEPARIN 1000 UNITS/ML 10 ML INJ CATHETER (11:48)
[2019-01-26] MEDS: BUSPIRONE 10 MG TAB PEG ×3 (13:00→21:23)
[2019-01-26] MEDS: MIDODRINE 2.5 MG TAB PEG ×3 (13:00→21:23)
[2019-01-26] MEDS: POLYETHYLENE GLYCOL 17 GM PACKET PEG (14:05)
[2019-01-26] MEDS: FAMOTIDINE 20 MG TAB PO (14:06)
[2019-01-26] MEDS: SERTRALINE 100 MG TAB PEG (14:06)
[2019-01-26] MEDS: HYDROCODONE/APAP (5/325) TAB PO ×2 (14:06→21:42)
[2019-01-26] MEDS: DIPHENHYDRAMINE 50 MG CAP PEG ×2 (14:28→21:41)
[2019-01-26] MEDS: VANCOMYCIN 1 GM 250 ML IVPB (16:57)
[2019-01-26 17:13] LABS: VANCOMYCIN,TROUGH 10.6 ug/ml (10.0-20.0)
[2019-01-26] MEDS: EPOETIN ALFA-EPBX (ESRD) 10,000 UNIT/ML VIAL SC (17:43)
[2019-01-27] MEDS: VANCOMYCIN HCL 250 MG/5ML POSYG PO ×4 (00:27→17:22)
[2019-01-27] MEDS: INSULIN ASPART [NOVOLOG] 3 ML PEN SC ×5 (00:31→17:20)
[2019-01-27] MEDS: ACCU-CHEK XX ×5 (01:00→17:22)
[2019-01-27] MEDS: ALBUTEROL HFA 8 GM INHALER INH ×3 (02:22→13:22)
[2019-01-27] MEDS: IPRATROPIUM (HFA) 12.9 GM INHALER INH ×3 (02:22→13:22)
[2019-01-27] MEDS: DIPHENHYDRAMINE 50 MG CAP PEG (05:53)
[2019-01-27] MEDS: DIAZEPAM 5 MG TAB PEG ×2 (05:53→15:16)
[2019-01-27] MEDS: CIPROFLOXACIN 250 MG TAB PO (05:53)
[2019-01-27] MEDS: LEVOTHYROXINE 100 MCG VIAL IV (05:54)
[2019-01-27] MEDS: GABAPENTIN (50 MG/ML PO SYG) PEG ×2 (05:55→15:16)
[2019-01-27] MEDS: NPH, HUMAN INSULIN ISOPHANE 3ML VIAL SC ×2 (06:00→13:28)
[2019-01-27] MEDS: FAMOTIDINE 20 MG TAB PO (09:03)
[2019-01-27] MEDS: SERTRALINE 100 MG TAB PEG (09:03)
[2019-01-27] MEDS: MIDODRINE 2.5 MG TAB PEG ×2 (09:03→15:16)
[2019-01-27] MEDS: HYDROCORTISONE 5 MG TAB NGT ×2 (09:03→15:16)
[2019-01-27] MEDS: COLLAGENASE 5 GM (UD JAR) TOP (09:03)
[2019-01-27] MEDS: BUSPIRONE 10 MG TAB PEG ×2 (09:03→15:16)
[2019-01-27] MEDS: (Nursing Note) XX (09:04)
[2019-01-27] MEDS: HYDROCODONE/APAP (5/325) TAB PO (11:46)
== END 2019-01-27 20:06 | DRG 3 ==
LOC: ICU 11-13 13:50 → TEL 12-13 00:36 → ICU 01-08 17:00 → 6WM 01-13 18:31 → E/R 22:11 → ICU 11-13 21:18 → TEL 10-29 02:40 → 5EC 11-02 15:35
PROC: 0DTF0ZZ Resection of Right Large Intestine, Open Approach (ICD-10-PCS; principal; 2018-11-13 20:28)
PROC: 0B113F4 Bypass Trachea to Cutaneous with Tracheostomy Device, Percutaneous Approach (ICD-10-PCS; 2018-11-13 20:28)
PROC: 5A1955Z Respiratory Ventilation, Greater than 96 Consecutive Hours (ICD-10-PCS; 2018-11-13 20:28)
PROC: 0WJF4ZZ Inspection of Abdominal Wall, Percutaneous Endoscopic Approach (ICD-10-PCS; 2018-11-13 20:28)
PROC: 0WQF0ZZ Repair Abdominal Wall, Open Approach (ICD-10-PCS; 2018-11-13 20:28)
PROC: 0W9G0ZX Drainage of Peritoneal Cavity, Open Approach, Diagnostic (ICD-10-PCS; 2018-11-13 20:28)
PROC: 0WPG03Z Removal of Infusion Device from Peritoneal Cavity, Open Approach (ICD-10-PCS; 2018-11-13 20:28)
PROC: 3E0M05Z Introduction of Adhesion Barrier into Peritoneal Cavity, Open Approach (ICD-10-PCS; 2018-11-13 20:28)
PROC: 04HL33Z Insertion of Infusion Device into Left Femoral Artery, Percutaneous Approach (ICD-10-PCS; 2018-11-13 20:28)
PROC: 06HY33Z Insertion of Infusion Device into Lower Vein, Percutaneous Approach (ICD-10-PCS; 2018-11-13 20:28)
PROC: 0JHM3XZ Insertion of Tunneled Vascular Access Device into Left Upper Leg Subcutaneous Tissue and Fascia, Percutaneous Approach (ICD-10-PCS; 2018-11-13 20:28)
PROC: 06H033Z Insertion of Infusion Device into Inferior Vena Cava, Percutaneous Approach (ICD-10-PCS; 2018-11-13 20:28)
PROC: B549ZZA Ultrasonography of Inferior Vena Cava, Guidance (ICD-10-PCS; 2018-11-13 20:28)
PROC: 5A1D70Z Performance of Urinary Filtration, Intermittent, Less than 6 Hours Per Day (ICD-10-PCS; 2018-11-13 20:28)
PROC: 0BH17EZ Insertion of Endotracheal Airway into Trachea, Via Natural or Artificial Opening (ICD-10-PCS; 2018-11-13 20:28)
PROC: 0DH63UZ Insertion of Feeding Device into Stomach, Percutaneous Approach (ICD-10-PCS; 2018-11-13 20:28)
DX: T85.71XA Infection and inflammatory reaction due to peritoneal dialysis catheter, initial encounter (principal); N18.6 End stage renal disease; A41.9 Sepsis, unspecified organism; J18.9 Pneumonia, unspecified organism; G92 Toxic encephalopathy; K65.9 Peritonitis, unspecified; J96.90 Respiratory failure, unspecified, unspecified whether with hypoxia or hypercapnia; R65.21 Severe sepsis with septic shock; I12.0 Hypertensive chronic kidney disease with stage 5 chronic kidney disease or end stage renal disease; L03.311 Cellulitis of abdominal wall; G25.82 Stiff-man syndrome; N25.81 Secondary hyperparathyroidism of renal origin; E27.40 Unspecified adrenocortical insufficiency; Z99.11 Dependence on respirator [ventilator] status; Z68.41 Body mass index [BMI] 40.0-44.9, adult; K56.690 Other partial intestinal obstruction; T82.42XA Displacement of vascular dialysis catheter, initial encounter; E87.5 Hyperkalemia; E10.621 Type 1 diabetes mellitus with foot ulcer; E10.43 Type 1 diabetes mellitus with diabetic autonomic (poly)neuropathy; E10.21 Type 1 diabetes mellitus with diabetic nephropathy; E10.65 Type 1 diabetes mellitus with hyperglycemia; E10.319 Type 1 diabetes mellitus with unspecified diabetic retinopathy without macular edema; E66.01 Morbid (severe) obesity due to excess calories; E03.9 Hypothyroidism, unspecified; E78.5 Hyperlipidemia, unspecified; E83.9 Disorder of mineral metabolism, unspecified; K76.0 Fatty (change of) liver, not elsewhere classified; K31.84 Gastroparesis; K46.9 Unspecified abdominal hernia without obstruction or gangrene; K21.9 Gastro-esophageal reflux disease without esophagitis; F32.9 Major depressive disorder, single episode, unspecified; F41.9 Anxiety disorder, unspecified; D69.6 Thrombocytopenia, unspecified; D72.829 Elevated white blood cell count, unspecified; D63.8 Anemia in other chronic diseases classified elsewhere; D63.1 Anemia in chronic kidney disease; R13.10 Dysphagia, unspecified; I73.9 Peripheral vascular disease, unspecified; G89.4 Chronic pain syndrome; G40.909 Epilepsy, unspecified, not intractable, without status epilepticus; Z79.4 Long term (current) use of insulin; Z99.2 Dependence on renal dialysis; Z79.01 Long term (current) use of anticoagulants; L97.509 Non-pressure chronic ulcer of other part of unspecified foot with unspecified severity; E10.51 Type 1 diabetes mellitus with diabetic peripheral angiopathy without gangrene; E55.9 Vitamin D deficiency, unspecified; D50.9 Iron deficiency anemia, unspecified; R13.19 Other dysphagia; K52.9 Noninfective gastroenteritis and colitis, unspecified; B95.8 Unspecified staphylococcus as the cause of diseases classified elsewhere; B96.7 Clostridium perfringens [C. perfringens] as the cause of diseases classified elsewhere
CPT/HCPCS: 36600; 71045; 71250; 74018; 74176; 74177; 76536; 76705; 76937; 80048; 80053; 80076; 80202; 82533; 82728; 82803; 82962; 83036; 83540; 83605; 83690; 83735; 84100; 84134; 84439; 84443; 84478; 84484; 84703; 85025; 85610; 85730; 87040-91; 87070; 87075; 87081; 87102; 87116; 87340; 87400; 88300; 88302; 88305; 89051; 90935; 90945; 93005; 94002; 94003; 94640; 94770; 97110; 97163